=== PATIENT | male | born 1930 | race Caucasian/White ===

== ENCOUNTER 2016-12-06 15:04 | Inpatient (IN) | payer OTHER, MEDICARE ==
--- NOTE | 2016-12-06 17:13 | PDOC ---
History of Present Illness - History of Present Illness Initial Comments: 12/06/16 17:33 The patient is an 86 year old male with a past medical hx of afib, Non-Hodgkin' s lymphoma diverticulosis who presents to the ED sent by his PCP for evaluation of abnormal laboratory findings. The patient had blood work taken yesterday which revealed a hemoglobin level of 7. The patient states his baseline level is a 9. The patient states he was informed he may need a transfusion. The patient reports he feels fine and denies any headache, weakness, dizziness, hematochezia, and melena. The patient denies chest pain, SOB The patient denies fever, chills The patient denies nausea, vomiting, diarrhea Allergies: Warfarin sodium Social: No toxic habits reported PCP: Dr. West <Whitney Davis - Last Filed: 12/06/16 17:43> <Kiah Cohen - Last Filed: 12/06/16 19:39> <Morgan Perez - Last Filed: 12/07/16 20:41> - General Stated Complaint: Blood Transfusion Time Seen by Provider: 12/06/16 17:13 Past History <Whitney Davis - Last Filed: 12/06/16 17:43> <Kiah Cohen - Last Filed: 12/06/16 19:39> - Past Medical History Anemia: No Asthma: No Cancer: No Cardiac Disorders: Yes (afib-CARDIOVERSION) CVA: No COPD: No CHF: No Dementia: No Diabetes: No GI Disorders: Yes (RECTAL BLEEDING;DIVERTICULOSIS) Disorders: No HTN: No Hypercholesterolemia: Yes Liver Disease: No Suicide Attempt (Hx): No Seizures: No Thyroid Disease: No - Surgical History Abdominal Surgery: Yes (HERNIA SX) Appendectomy: No Cardiac Surgery: No Cholecystectomy: Yes Lung Surgery: No Neurologic Surgery: No Orthopedic Surgery: No - Psycho/Social/Smoking Cessation Hx Anxiety: No Suicidal Ideation: No Smoking Status: No Smoking History: Never smoked Have you smoked in the past 12 months: No Number of Cigarettes Smoked Daily: 0 If you are a former smoker, when did you quit?: 2007 Cigars Per Day: 0 Information on smoking cessation initiated: No 'Breaking Loose' booklet given: 08/23/15 Hx Alcohol Use: No Drug/Substance Use Hx: No Substance Use Type: None Hx Substance Use Treatment: No <Morgan Perez - Last Filed: 12/07/16 20:41> - Past Medical History Allergies/Adverse Reactions: Allergies Allergy/AdvReac Type Severity Reaction Status Date / Time warfarin sodium Allergy Severe bleeding Verified 12/06/16 15:15 [From Coumadin] Home Medications: Ambulatory Orders Apixaban [Eliquis] 2.5 mg PO BID 12/06/16 Atorvastatin Ca [Lipitor] 20 mg PO HS 12/06/16 Digoxin [Lanoxin -] 0.125 mg PO DAILY 12/06/16 Dutasteride/Tamsulosin HCl [Dutasteride-Tamsulosin 0.5-0.4] 1 each PO DAILY Furosemide [Lasix] 40 mg PO BID 12/06/16 L.acidoph,Paracasei, B.lactis [Probiotic] 1 each PO DAILY 12/06/16 Melatonin 5 mg PO DAILY 12/06/16 Metoprolol Succinate [Toprol XL -] 100 mg PO BID 12/06/16 Pantoprazole Sodium [Protonix] 40 mg PO BID 12/06/16 Review of Systems - Review of Systems Able to Perform ROS?: Yes Comments:: 12/06/16 17:33 CONSTITUTIONAL: Absent: fever, chills, diaphoresis, generalized weakness, malaise, loss of appetite HEENT: Absent: rhinorrhea, nasal congestion, throat pain, throat swelling, difficulty swallowing, mouth swelling, ear pain, eye pain, visual Changes CARDIOVASCULAR: Absent: chest pain, syncope, palpitations, irregular heart rate, lightheadedness , peripheral edema RESPIRATORY: Absent: cough, shortness of breath, dyspnea with exertion, orthopnea, wheezing, stridor, hemoptysis GASTROINTESTINAL: Absent: abdominal pain, abdominal distension, nausea, vomiting, diarrhea, constipation, melena, hematochezia GENITOURINARY: Absent: dysuria, frequency, urgency, hesitancy, hematuria, flank pain, genital pain MUSCULOSKELETAL: Absent: myalgia, arthralgia, joint swelling SKIN: Absent: rash, itching, pallor HEMATOLOGIC/IMMUNOLOGIC: Absent: easy bleeding, easy bruising, lymphadenopathy, frequent infections ENDOCRINE: Absent: unexplained weight gain, unexplained weight loss, heat intolerance, cold intolerance NEUROLOGIC: Absent: headache, focal weakness or paresthesias, dizziness, unsteady gait, seizure, mental status changes, bladder or bowel incontinence PSYCHIATRIC: Absent: anxiety, depression, suicidal or homicidal ideation, hallucinations. <DuglasWhitney mayen - Last Filed: 12/06/16 17:43> *Physical Exam - Vital Signs Last Vital Signs Temp Pulse Resp BP Pulse Ox 97.5 F L 60 18 104/73 100 12/06/16 15:16 12/06/16 15:11 12/06/16 15:11 12/06/16 15:11 12/06/16 15:11 - Physical Exam Comments: 12/06/16 17:43 GENERAL: Well developed, well nourished. Awake and alert. In no acute distress. HEENT: Normocephalic, atraumatic. PERRLA, EOMI. No conjunctival pallor. Sclera are non- icteric. Moist mucous membranes. Oropharynx is clear. NECK: Supple. Full ROM. No JVD. Carotid pulses 2+ and symmetric, without bruits. No thyromegaly. No lymphadenopathy. CARDIOVASCULAR: +Peripheral pulses irregularly irregular. Regular rate and rhythm. No murmurs, rubs, or gallops. PULMONARY: No evidence of respiratory distress. Lungs clear to auscultation bilaterally. No wheezing, rales or rhonchi. ABDOMINAL: +Ventral hernia. Soft. Non-tender. Non-distended. No rebound or guarding. No organomegaly. Normoactive bowel sounds. MUSCULOSKELETAL Normal range of motion at all joints. No bony deformities or tenderness. No CVA tenderness. EXTREMITIES: No cyanosis. No clubbing. No edema. No calf tenderness. SKIN: +Several raised dark colored lesions on abdomen. Warm and dry. Normal capillary refill. No rashes. No jaundice. NEUROLOGICAL: Alert, awake, appropriate. Cranial nerves 2-12 intact. No deficits to light touch and temperature in face, upper extremities and lower extremities. No motor deficits in the in face, upper extremities and lower extremities. Normoreflexic in the upper and lower extremities. Normal speech. Toes are downgoing bilaterally. Gait is normal without ataxia. PSYCHIATRIC: Cooperative. Good eye contact. Appropriate mood and affect. <DuglastiarraWhitney - Last Filed: 12/06/16 17:43> - Vital Signs Last Vital Signs Temp Pulse Resp BP Pulse Ox 97.5 F L 60 18 104/73 100 12/06/16 15:16 12/06/16 15:11 12/06/16 15:11 12/06/16 15:11 12/06/16 15:11 <Kiah Cohen - Last Filed: 12/06/16 19:39> - Vital Signs Last Vital Signs Temp Pulse Resp BP Pulse Ox 97.5 F L 60 18 104/73 100 12/06/16 15:16 12/06/16 15:11 12/06/16 15:11 12/06/16 15:11 12/06/16 15:11 <Morgan Perez - Last Filed: 12/07/16 20:41> ED Treatment Course - LABORATORY CBC & Chemistry Diagram: 12/06/16 18:00 12/06/16 18:00 - ADDITIONAL ORDERS Additional order review: Laboratory Results 12/06/16 12/06/16 12/06/16 18:26 18:00 18:00 Sodium 143 Potassium 4.3 Chloride 105 Carbon Dioxide 30 Anion Gap 8 BUN 42 H D Creatinine 2.3 H D Creat Clearance w eGFR 27.10 Random Glucose 93 Calcium 8.5 Total Bilirubin 0.8 AST 26 D ALT 26 D Alkaline Phosphatase 125 H D Total Protein 6.7 Albumin 3.5 Stool Occult Blood Negative Crossmatch See Detail <Kiah Cohen - Last Filed: 12/06/16 19:39> - LABORATORY CBC & Chemistry Diagram: 12/07/16 06:20 12/07/16 06:20 <Morgan Perez - Last Filed: 12/07/16 20:41> Medical Decision Making - Medical Decision Making 12/06/16 19:18 First page placed for Dr. West at 19:15. Case discussed with Dr. Hauser at 19:35. <Kiah Cohen - Last Filed: 12/06/16 19:39> *DC/Admit/Observation/Transfer - Attestations Scribe Attestion: 12/06/16 17:33 Documentation prepared by Whitney Davis, acting as medical charge entry specialist for Morgan Perez MD, /DO. <Whitney Davis - Last Filed: 12/06/16 17:43> - Attestations Scribe Attestion: 12/06/16 19:19 Documentation prepared by Kiah Cohen, acting as medical charge entry specialist for Morgan Perez MD. <Kiah Cohen - Last Filed: 12/06/16 19:39> - Discharge Dispostion Admit: No - Post Discharge Activity Activity Comments: 12/07/16 20:41 THE PATIENT REFUSED ADMISSION. <Morgan Perez - Last Filed: 12/07/16 20:41> Diagnosis at time of Disposition: CLL (chronic lymphocytic leukemia), Anemia - Discharge Dispostion Disposition: HOME Condition at time of disposition: Guarded - Referrals
[2016-12-06] MEDS ORDERED: SODIUM CHLORIDE 1,000 ML IV SCH (17:30)
[2016-12-06 18:26] LABS: MCH 27.7 pg (25.7-33.7); MEAN CELL VOLUME 95.5 fl (80-96); PLATELET COUNT 137 K/MM3 (134-434); RDW 16.5 % (11.9-15.9)
[2016-12-06 19:05] LABS: ALBUMIN 3.5 g/dl (3.4-5.0); BILIRUBIN,TOTAL 0.8 mg/dL (0.2-1.0); CALCIUM 8.5 mg/dL (8.5-10.1); CREATININE 2.3 mg/dL (0.7-1.3); TOT PROT 6.7 g/dl (6.4-8.2)
[2016-12-06 19:32] LABS: WHITE BLOOD COUNT 118.2 K/mm3 (4.0-10.0)
--- NOTE | 2016-12-06 19:41 | PDOC ---
*Physical Exam - Vital Signs Last Vital Signs Temp Pulse Resp BP Pulse Ox 97.5 F L 60 18 104/73 100 12/06/16 15:16 12/06/16 15:11 12/06/16 15:11 12/06/16 15:11 12/06/16 15:11 ED Treatment Course - LABORATORY CBC & Chemistry Diagram: 12/06/16 18:00 12/06/16 18:00 - ADDITIONAL ORDERS Additional order review: Laboratory Results 12/06/16 12/06/16 12/06/16 18:26 18:00 18:00 Sodium 143 Potassium 4.3 Chloride 105 Carbon Dioxide 30 Anion Gap 8 BUN 42 H D Creatinine 2.3 H D Creat Clearance w eGFR 27.10 Random Glucose 93 Calcium 8.5 Total Bilirubin 0.8 AST 26 D ALT 26 D Alkaline Phosphatase 125 H D Total Protein 6.7 Albumin 3.5 Stool Occult Blood Negative Crossmatch See Detail 12/06/16 18:00 RBC 2.53 L D MCV 95.5 MCHC 29.0 L RDW 16.5 H MPV 10.0 Neutrophils % Y Lymphocytes % Y *DC/Admit/Observation/Transfer Diagnosis at time of Disposition: CLL (chronic lymphocytic leukemia), Anemia - Discharge Dispostion Condition at time of disposition: Stable Admit: Yes - Referrals Referrals: Denise West MD [Primary Care Provider] - - Patient Instructions - Post Discharge Activity
[2016-12-06 19:52] LABS: METAMYELOCYTE 1 % (0-2)
[2016-12-06 20:44] LABS: URINE APPEARANCE CLOUDY; URINE BILIRUBIN NEGATIVE (NEGATIVE); URINE COLOR YELLOW; URINE GLUCOSE (UA) NEGATIVE (NEGATIVE); URINE KETONE NEGATIVE (NEGATIVE); URINE NITRITE NEGATIVE (NEGATIVE); URINE UROBILINOGEN NEGATIVE E.U./dl (0.2-1.0)
[2016-12-06 20:48] LABS: URINE BLOOD 3+ (NEGATIVE); URINE LEUK ESTERASE 3+ (NEGATIVE); URINE PROTEIN 1+ (NEGATIVE)
[2016-12-06 21:40] LABS: URINE BACTERIA RARE /hpf (NONE SEEN); URINE RBC 28 /hpf (0-3); URINE WBC 347 /hpf (3-5); YEAST FEW
[2016-12-06] MEDS ORDERED: MELATONIN 5 MG TABLETS PO SCH (22:00)
[2016-12-06] MEDS ORDERED: PANTOPRAZOLE 40 MG TABLET (FP) ONE (22:17)
[2016-12-06] MEDS ORDERED: METOPROLOL SUCCINATE 50 MG TAB.SR.24H (FP) ONE (22:18)
[2016-12-06] MEDS: FUROSEMIDE 40 MG TABLET (FP) PO SCH (22:21)
[2016-12-06] MEDS: PANTOPRAZOLE 40 MG TABLET (FP) PO SCH (22:23)
[2016-12-06] MEDS: METOPROLOL SUCCINATE 100 MG TAB.SR.24H (FP) PO SCH (22:23)
[2016-12-07 07:30] LABS: MCH 29.6 pg (25.7-33.7); MCHC 32.5 g/dl (32.0-35.9); MEAN CELL VOLUME 91.1 fl (80-96); MEAN PLT VOLUME 9.7 fl (7.5-11.1); PLATELET COUNT 133 K/MM3 (134-434); RDW 17.8 % (11.9-15.9)
[2016-12-07 07:54] LABS: ALBUMIN 3.6 g/dl (3.4-5.0); CALCIUM 8.2 mg/dL (8.5-10.1)
[2016-12-07 08:01] LABS: BILIRUBIN,TOTAL 1.9 mg/dL (0.2-1.0); CREATININE 2.1 mg/dL (0.7-1.3); TOT PROT 6.8 g/dl (6.4-8.2)
[2016-12-07 08:06] LABS: WHITE BLOOD COUNT 142.1 K/mm3 (4.0-10.0)
[2016-12-07 08:54] LABS: METAMYELOCYTE 1 % (0-2)
[2016-12-07 08:55] LABS: SMUDGE CELLS FEW
[2016-12-07] MEDS ORDERED: LACTOBACILLUS ACIDOPHILUS 1 EACH TAB (FP) PO SCH (10:00)
[2016-12-07] MEDS ORDERED: PATIENT'S OWN MEDICATION (NON-FORMULARY) (Dutasteride/Tamsulosin Hcl [Dutasteride-Tamsulos PO SCH (10:00)
[2016-12-07] MEDS ORDERED: DIGOXIN 0.125 MG TABLET (FP) PO SCH (10:00)
[2016-12-07] MEDS: PANTOPRAZOLE 40 MG TABLET (FP) PO SCH (10:40)
[2016-12-07] MEDS: METOPROLOL SUCCINATE 100 MG TAB.SR.24H (FP) PO SCH (10:40)
[2016-12-07] MEDS: FUROSEMIDE 40 MG TABLET (FP) PO SCH (10:40)
[2016-12-07 10:42] VITALS: BP 149/63; PULSE 68; TEMP 97.9
--- NOTE | 2016-12-07 12:12 | HP ---
Admitting History and Physical - Primary Care Physician PCP: Denise West - Admission Chief Complaint: sent in for blood transfusion History of Present Illness: The patient is an 86 year old male with a past medical hx of afib, Non-Hodgkin' s lymphoma diverticulosis who presents to the ED sent by his PCP for evaluation of abnormal laboratory findings. The patient had blood work taken yesterday which revealed a hemoglobin level of 7. The patient states his baseline level is a 9. The patient states he was informed he may need a transfusion. The patient reports he feels fine and denies any headache, weakness, dizziness, hematochezia, and melena. The patient denies chest pain, SOB The patient denies fever, chills The patient denies nausea, vomiting, diarrhea Allergies: Warfarin sodium Social: No toxic habits reported PCP: Dr. 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 Cardiovascular: Yes: AFIB (on asiprin no coumadin bc of bleeding in past), HTN Pulmonary: Yes: Pneumonia, Other (Has progressive RLL consolidation on Chest X- ray report) Gastrointestinal: Yes: Diverticulosis, GI Bleed (diverticular bleeding), Other ( HEMORRHOIDS, antral and gastric body erosions, left inguinal hernia) Hepatobiliary: Yes: Other (developing abnormalities of LFT's -progressive) Renal/: Yes: BPH, Other (consideration for prostate procedure mentioned by ) Heme/Onc: Yes: Other (CLL followed by Dr Reyes, previously carried as NHL, 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) Infectious Disease: Yes: Other (gram negative bacteremia, and gram negatives in urine) Musculoskeletal: Yes: Osteoarthritis - Past Surgical History Past Surgical History: Yes: Cholecystectomy - Smoking History Smoking history: Never smoked Have you smoked in the past 12 months: No Aproximately how many cigarettes per day: 0 If you are a former smoker, when did you quit?: 2006 - Alcohol/Substance Use Hx Alcohol Use: No - Social History ADL: Independent 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 History of Recent Travel: No Home Medications - Allergies Allergies/Adverse Reactions: Allergies Allergy/AdvReac Type Severity Reaction Status Date / Time warfarin sodium Allergy Severe bleeding Verified 12/06/16 15:15 [From Coumadin] - Home Medications Home Medications: Ambulatory Orders Apixaban [Eliquis] 2.5 mg PO BID 12/06/16 Atorvastatin Ca [Lipitor] 20 mg PO HS 12/06/16 Digoxin [Lanoxin -] 0.125 mg PO DAILY 12/06/16 Dutasteride/Tamsulosin HCl [Dutasteride-Tamsulosin 0.5-0.4] 1 each PO DAILY Furosemide [Lasix] 40 mg PO BID 12/06/16 L.acidoph,Paracasei, B.lactis [Probiotic] 1 each PO DAILY 12/06/16 Melatonin 5 mg PO DAILY 12/06/16 Metoprolol Succinate [Toprol Xl -] 100 mg PO BID 12/06/16 Pantoprazole Sodium [Protonix] 40 mg PO BID 12/06/16 Family Disease History - Family Disease History Family Disease History: Other: Father (stroke 74), Mother ( 72 or aspiration ) Review of Systems - Review of Systems HENT: reports: No Symptoms Neck: reports: No Symptoms Cardiovascular: reports: No Symptoms Respiratory: reports: No Symptoms Musculoskeletal: reports: Other (leg swelling) Physical Examination Vital Signs: Vital Signs Temperature 97.9 F 12/07/16 10:40 Pulse Rate 68 12/07/16 10:40 Respiratory Rate 16 12/07/16 10:40 Blood Pressure 149/63 12/07/16 10:40 O2 Sat by Pulse Oximetry (%) 98 12/07/16 10:40 Constitutional: Yes: Calm Cardiovascular: Yes: Regular Rate and Rhythm, S1, S2 Respiratory: Yes: CTA Bilaterally Gastrointestinal: Yes: Normal Bowel Sounds, Soft Edema: LLE: 2+, RLE: 2+ Neurological: Yes: Alert, Oriented Labs: CBC, BMP 12/07/16 06:20 12/07/16 06:20 Imaging - Results Ultrasound: Pending Problem List - Problems (1) Anemia Assessment/Plan: s/p prbc h/h imptoved Code(s): D64.9 - ANEMIA, UNSPECIFIED (2) CLL (chronic lymphocytic leukemia) Assessment/Plan: dr reyes patient will make appoitment to see him next week explained to him importance of him seeing him soon. Code(s): C91.10 - CHRONIC LYMPHOCYTIC LEUK OF B-CELL TYPE NOT ACHIEVE REMIS (3) Acute kidney injury Assessment/Plan: renal eval renal bladder sono done report pending continue same meds needs lasix given extensive leg edema Code(s): N17.9 - ACUTE KIDNEY FAILURE, UNSPECIFIED Assessment/Plan patient really wants to go home explained to him i need to first get the ultrasound report based on that isha decide discharge if ultrasound is ok no major abnormality then will discharge patient home
--- NOTE | 2016-12-07 14:55 | CONSULT ---
Consult Consult Specialty:: Nephrology Reason for Consultation:: CKD - History of Present Illness Chief Complaint: sent in for abnormal labs History of Present Illness: Pt is an 86 year old male with hx of CLL, a-fib, CKD and anemia who presents to the ER for abnormal labs. He was found to be anemic and was transfused. He complains of lower extremity edema. He was found to have moderate hydro on the renal ultrasound. He does have CKD and follows with Dr Voss. Pt requests to go home and would like the workup done as an outpt. He denies chest pain or palpitations. He denies dysuria or hematuria. He still has edema of his legs. He is awake and alert. 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 Cardio/Vascular: Yes: AFIB (on asiprin no coumadin bc of bleeding in past), HTN Pulmonary: Yes: Pneumonia, Other (Has progressive RLL consolidation on Chest X- ray report) Gastrointestinal: Yes: Diverticulosis, GI Bleed (diverticular bleeding), Other ( HEMORRHOIDS, antral and gastric body erosions, left inguinal hernia) Hepatobiliary: Yes: Other (developing abnormalities of LFT's -progressive) Renal/: Yes: BPH, Other (consideration for prostate procedure mentioned by ) Infectious Disease: Yes: Other (gram negative bacteremia, and gram negatives in urine) Musculoskeletal: Yes: Osteoarthritis - Past Surgical History Past Surgical History: Yes: Cholecystectomy - Alcohol/Substance Use Hx Alcohol Use: No - Smoking History Smoking history: Never smoked Have you smoked in the past 12 months: No Aproximately how many cigarettes per day: 0 If you are a former smoker, when did you quit?: 2006 - Social History Usual Living Arrangement: Alone ADL: Independent 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 History of Recent Travel: No Home Medications - Allergies Allergies/Adverse Reactions: Allergies Allergy/AdvReac Type Severity Reaction Status Date / Time warfarin sodium Allergy Severe bleeding Verified 12/06/16 15:15 [From Coumadin] - Home Medications Home Medications: Ambulatory Orders Apixaban [Eliquis] 2.5 mg PO BID 12/06/16 Atorvastatin Ca [Lipitor] 20 mg PO HS 12/06/16 Digoxin [Lanoxin -] 0.125 mg PO DAILY 12/06/16 Dutasteride/Tamsulosin HCl [Dutasteride-Tamsulosin 0.5-0.4] 1 each PO DAILY Furosemide [Lasix] 40 mg PO BID 12/06/16 L.acidoph,Paracasei, B.lactis [Probiotic] 1 each PO DAILY 12/06/16 Melatonin 5 mg PO DAILY 12/06/16 Metoprolol Succinate [Toprol XL -] 100 mg PO BID 12/06/16 Pantoprazole Sodium [Protonix] 40 mg PO BID 12/06/16 Family Disease History - Family Disease History Family Disease History: Other: Father (stroke 74), Mother ( 72 or aspiration ) Review of Systems - Review of Systems Constitutional: reports: No Symptoms Eyes: reports: No Symptoms HENT: reports: No Symptoms Neck: reports: No Symptoms Cardiovascular: reports: Edema Respiratory: reports: No Symptoms Gastrointestinal: reports: No Symptoms Genitourinary: reports: No Symptoms Integumentary: reports: Erythema Neurological: reports: No Symptoms Endocrine: reports: No Symptoms Hematology/Lymphatic: reports: No Symptoms Psychiatric: reports: No Symptoms Physical Exam Vital Signs: Vital Signs Temperature 97.9 F 12/07/16 10:40 Pulse Rate 68 12/07/16 10:40 Respiratory Rate 16 12/07/16 10:40 Blood Pressure 149/63 12/07/16 10:40 O2 Sat by Pulse Oximetry (%) 98 12/07/16 10:40 Constitutional: Yes: Calm Eyes: Yes: Conjunctiva Clear HENT: Yes: Atraumatic Neck: Yes: Supple Cardiovascular: Yes: S1, S2 Respiratory: Yes: CTA Bilaterally Gastrointestinal: Yes: Soft Musculoskeletal: Yes: WNL Edema: Yes Edema: LLE: 3+, RLE: 3+ Integumentary: Yes: Venous Stasis Changes Wound/Incision: Yes: Open to air Neurological: Yes: Oriented Psychiatric: Yes: Oriented Labs: CBC, BMP 12/07/16 06:20 12/07/16 06:20 Laboratory Tests 12/06/16 12/06/16 12/06/16 18:00 18:00 18:26 WBC 118.2 H* Hgb 7.0 L D Plt Count 137 Sodium 143 Potassium 4.3 Chloride 105 Carbon Dioxide 30 Anion Gap 8 BUN 42 H D Creatinine 2.3 H D Creat Clearance w eGFR 27.10 Urine Color Urine Appearance Urine pH Ur Specific [place] Urine Protein Urine Glucose (UA) Urine Ketones Urine Blood Urine Nitrite Urine Bilirubin Urine Urobilinogen Ur Leukocyte Esterase Urine RBC Urine WBC Ur Epithelial Cells Stool Occult Blood Negative 12/06/16 12/07/16 12/07/16 20:28 06:20 06:20 WBC 142.1 H* Hgb 9.0 L D Plt Count 133 L Sodium 144 Potassium 4.6 Chloride 108 H Carbon Dioxide 28 Anion Gap 8 BUN 42 H Creatinine 2.1 H Creat Clearance w eGFR 30.09 Urine Color Yellow Urine Appearance Cloudy Urine pH 6.0 Ur Specific [place] 1.008 Urine Protein 1+ H Urine Glucose (UA) Negative Urine Ketones Negative Urine Blood 3+ H Urine Nitrite Negative Urine Bilirubin Negative Urine Urobilinogen Negative Ur Leukocyte Esterase 3+ H Urine RBC 28 Urine WBC 347 Ur Epithelial Cells Rare Stool Occult Blood Imaging - Results Chest X-ray: Report Reviewed (mild COPD) Ultrasound: Report Reviewed (mild to moderat left sided hydro, mild cortical atrophy) Problem List - Problems (1) Afib Code(s): I48.91 - UNSPECIFIED ATRIAL FIBRILLATION Qualifiers: Atrial fibrillation type: persistent Qualified Code(s): I48.1 - Persistent atrial fibrillation (2) Anemia Code(s): D64.9 - ANEMIA, UNSPECIFIED (3) CLL (chronic lymphocytic leukemia) Code(s): C91.10 - CHRONIC LYMPHOCYTIC LEUK OF B-CELL TYPE NOT ACHIEVE REMIS (4) Chronic kidney disease (CKD) Code(s): N18.9 - CHRONIC KIDNEY DISEASE, UNSPECIFIED Qualifiers: Chronic kidney disease stage: stage 2 (mild) Qualified Code(s): N18.2 - Chronic kidney disease, stage 2 (mild) (5) Lower extremity edema Code(s): R60.0 - LOCALIZED EDEMA Assessment/Plan Impression 1. CKD 2. anemia 3. CLL 4. a-fib 5. lower extremity edema Plan - recommend that pt stay in hospital for workup - if he decides to stay should get a ct of the abdomen and pelvis - I called oncology and they also recommend getting a ct scan - cont with diuretics - avoid nsaids and nephrotoxins - the medical attending and I both tried to convince the pt to stay for workup however he is refusing Dr Hall
--- NOTE | 2016-12-07 14:58 | DS ---
Physical Examination Vital Signs: Vital Signs Temperature 97.9 F 12/07/16 10:40 Pulse Rate 68 12/07/16 10:40 Respiratory Rate 16 12/07/16 10:40 Blood Pressure 149/63 12/07/16 10:40 O2 Sat by Pulse Oximetry (%) 98 12/07/16 10:40 Constitutional: Yes: Calm Neck: Yes: Trachea Midline Cardiovascular: Yes: Regular Rate and Rhythm, S1, S2 Respiratory: Yes: CTA Bilaterally Gastrointestinal: Yes: Normal Bowel Sounds, Soft Edema: Yes Edema: LLE: 2+, RLE: 2+ Neurological: Yes: Alert, Oriented Labs: CBC, BMP 12/07/16 06:20 12/07/16 06:20 Discharge Summary Reason For Visit: CLL/ ANEMIA Current Active Problems Anemia (Acute) CLL (chronic lymphocytic leukemia) (Acute) Hospital Course: Chief Complaint: sent in for blood transfusion History of Present Illness: The patient is an 86 year old male with a past medical hx of afib, Non-Hodgkin' s lymphoma diverticulosis who presents to the ED sent by his PCP for evaluation of abnormal laboratory findings. The patient had blood work taken yesterday which revealed a hemoglobin level of 7. The patient states his baseline level is a 9. The patient states he was informed he may need a transfusion. The patient reports he feels fine and denies any headache, weakness, dizziness, hematochezia, and melena. The patient denies chest pain, SOB The patient denies fever, chills The patient denies nausea, vomiting, diarrhea Allergies: Warfarin sodium Social: No toxic habits reported PCP: Dr. West in ER he was found to have hgb of 7.0 got unit of blood and now repeat h/h 08/14 patient got renal bladder sono gram shows mild to mod left side hydronephrosis and prostate enlargement he wants to go home and said he will follow up with his oncologist Dr Reyes and PMD next week explained to patient need to FU with renal and urolgy and PMD he willl see the doctoirs - Instructions Referrals: Denise West MD [Primary Care Provider] - 1 Week James Lee MD., [Staff Physician] - 1 Week Basilio Sood MD [Staff Physician] - 1 Week Disposition: HOME - Home Medications Comprehensive Discharge Medication List: Ambulatory Orders Apixaban [Eliquis] 2.5 mg PO BID 12/06/16 Atorvastatin Ca [Lipitor] 20 mg PO HS 12/06/16 Digoxin [Lanoxin -] 0.125 mg PO DAILY 12/06/16 Dutasteride/Tamsulosin HCl [Dutasteride-Tamsulosin 0.5-0.4] 1 each PO DAILY Furosemide [Lasix] 40 mg PO BID 12/06/16 L.acidoph,Paracasei, B.lactis [Probiotic] 1 each PO DAILY 12/06/16 Melatonin 5 mg PO DAILY 12/06/16 Metoprolol Succinate [Toprol Xl -] 100 mg PO BID 12/06/16 Pantoprazole Sodium [Protonix] 40 mg PO BID 12/06/16
--- NOTE | 2016-12-07 15:31 | EKG ---
Test Reason : Blood Pressure : / mmHG Vent. Rate : 056 BPM Atrial Rate : 043 BPM P-R Int : 000 ms QRS Dur : 142 ms QT Int : 484 ms P-R-T Axes : 000 -73 -18 degrees QTc Int : 467 ms ATRIAL FIBRILLATION WITH SLOW VENTRICULAR RESPONSE LEFT AXIS DEVIATION RIGHT BUNDLE BRANCH BLOCK INFERIOR INFARCT (CITED ON OR BEFORE 03-JUL-2007) ABNORMAL ECG WHEN COMPARED WITH ECG OF 16-AUG-2016 22:25, NONSPECIFIC T WAVE ABNORMALITY NOW EVIDENT IN INFERIOR LEADS Confirmed by SHAUNA ESPINOZA MD ([id number]) on 12/07/2016 3:30:48 PM Referred By: Confirmed By:SHAUNA ESPINOZA MD
[2016-12-07 19:39] VITALS: BMI 24.0
[2016-12-08] MEDS ORDERED: TAMSULOSIN HCL 0.4 MG CAP.ER.24H (FP) PO SCH (08:30)
== END 2016-12-07 15:12 | disposition home or self-care (01) | DRG 812 ==
LOC: JER 15:04 → JERBED 20:07 → J5S 12-07 12:02
PROVIDERS: ADMIT Family Medicine; ATTEND Family Medicine
PROC: 30233N1 Transfusion of Nonautologous Red Blood Cells into Peripheral Vein, Percutaneous Approach (ICD-10-PCS; principal; 2016-12-07)
DX: D64.9 Anemia, unspecified (principal); I48.1 Persistent atrial fibrillation; C91.10 Chronic lymphocytic leukemia of B-cell type not having achieved remission; N17.9 Acute kidney failure, unspecified; N13.30 Unspecified hydronephrosis; K57.90 Diverticulosis of intestine, part unspecified, without perforation or abscess without bleeding; N40.0 Benign prostatic hyperplasia without lower urinary tract symptoms; M19.90 Unspecified osteoarthritis, unspecified site; I12.9 Hypertensive chronic kidney disease with stage 1 through stage 4 chronic kidney disease, or unspecified chronic kidney disease; N18.2 Chronic kidney disease, stage 2 (mild); R60.0 Localized edema
CPT/HCPCS: 36415; 36430; 71010-TC; 76775-TC; 76856-TC; 80053; 81003; 81015; 82272; 85025; 86850; 86900; 86901; 86922; 93005; 93010; 99285-25; P9038; P9058

== ENCOUNTER 2016-12-26 16:01 | Inpatient (IN) | payer OTHER, MEDICARE ==
[2016-12-26 16:09] VITALS: PULSE 71; TEMP 97.2; BMI 24.2
--- NOTE | 2016-12-26 16:34 | PDOC ---
History of Present Illness - General History Source: Patient, Old Records Exam Limitations: No Limitations - History of Present Illness Initial Comments: 12/26/16 16:59 The patient is a 86 year old male, with a significant past medical history of AFIB, diverticulosis, BPH, rectal bleeding and HLD, who presents to the emergency department after being sent by his PMD with elevated potassium. Upon presentation the patient is well appearing and able to ambulate without any difficulties. The patient denies chest pain, shortness of breath, headache and dizziness. Denies fever, chills, nausea, vomit, diarrhea and constipation. Denies dysuria, frequency, urgency and hematuria. Allergies: Coumadin Past surgical history: abdominal hernia surgery and cholecystectomy Social history: No alcohol, tobacco or drug use reported PMD - Dr. Denise West <Stewart Martinez - Last Filed: 12/26/16 17:57> <Morgan Perez - Last Filed: 12/26/16 18:26> - General Chief Complaint: Revisit, Lab Variance Stated Complaint: HIGH POTASSIUM (PCP SENT) Past History <Stewart Martinez - Last Filed: 12/26/16 17:57> - Past Medical History Anemia: No Asthma: No Cancer: No Cardiac Disorders: Yes (afib-CARDIOVERSION) CVA: No COPD: No CHF: No Dementia: No Diabetes: No GI Disorders: Yes (RECTAL BLEEDING;DIVERTICULOSIS) Disorders: No HTN: No Hypercholesterolemia: Yes Liver Disease: No Suicide Attempt (Hx): No Seizures: No Thyroid Disease: No - Surgical History Abdominal Surgery: Yes (HERNIA SX) Appendectomy: No Cardiac Surgery: No Cholecystectomy: Yes Lung Surgery: No Neurologic Surgery: No Orthopedic Surgery: No - Psycho/Social/Smoking Cessation Hx Anxiety: No Suicidal Ideation: No Smoking Status: No Smoking History: Never smoked Have you smoked in the past 12 months: No Number of Cigarettes Smoked Daily: 0 If you are a former smoker, when did you quit?: 2006 Cigars Per Day: 0 'Breaking Loose' booklet given: 08/23/15 Hx Alcohol Use: No Drug/Substance Use Hx: No Substance Use Type: None Hx Substance Use Treatment: No <Morgan Perez - Last Filed: 12/26/16 18:26> - Past Medical History Allergies/Adverse Reactions: Allergies Allergy/AdvReac Type Severity Reaction Status Date / Time warfarin sodium Allergy Severe bleeding Verified 12/26/16 16:03 [From Coumadin] Home Medications: Ambulatory Orders Apixaban [Eliquis] 2.5 mg PO BID 12/06/16 Atorvastatin Ca [Lipitor] 20 mg PO HS 12/06/16 Digoxin [Lanoxin -] 0.125 mg PO DAILY 12/06/16 Dutasteride/Tamsulosin HCl [Dutasteride-Tamsulosin 0.5-0.4] 1 each PO DAILY Furosemide [Lasix] 40 mg PO BID 12/06/16 L.acidoph,Paracasei, B.lactis [Probiotic] 1 each PO DAILY 12/06/16 Melatonin 5 mg PO HS 12/06/16 Metoprolol Succinate [Toprol XL -] 100 mg PO BID 12/06/16 Pantoprazole Sodium [Protonix] 40 mg PO BID 12/06/16 Review of Systems - Review of Systems Able to Perform ROS?: Yes Comments:: 12/26/16 16:59 GENERAL/CONSTITUTIONAL: No fever or chills. No weakness. HEAD, EYES, EARS, NOSE AND THROAT: No change in vision. No ear pain or discharge. No sore throat. CARDIOVASCULAR: No chest pain or shortness of breath RESPIRATORY: No cough, wheezing, or hemoptysis. GASTROINTESTINAL: No nausea, vomiting, diarrhea or constipation. GENITOURINARY: No dysuria, frequency, or change in urination. MUSCULOSKELETAL: No joint or muscle swelling or pain. No neck or back pain. SKIN: No rash NEUROLOGIC: No headache, vertigo, loss of consciousness, or change in strength/ sensation. ENDOCRINE: No increased thirst. No abnormal weight change HEMATOLOGIC/LYMPHATIC: No anemia, easy bleeding, or history of blood clots. ALLERGIC/IMMUNOLOGIC: No hives or skin allergy. <Stewart Martinez - Last Filed: 12/26/16 17:57> *Physical Exam - Vital Signs Last Vital Signs Temp Pulse Resp BP Pulse Ox 97.2 F L 71 18 137/66 98 12/26/16 16:04 12/26/16 16:04 12/26/16 16:04 12/26/16 16:04 12/26/16 16:04 - Physical Exam Comments: 12/26/16 17:00 GENERAL: Awake, alert, and fully oriented, in no acute distress HEAD: No signs of trauma, normocephalic, atraumatic EYES: PERRLA, EOMI, sclera anicteric, conjunctiva clear ENT: Auricles normal inspection, hearing grossly normal, nares patent, oropharynx clear without exudates. Moist mucosa NECK: Normal ROM, supple, no lymphadenopathy, JVD, or masses LUNGS: No distress, speaks full sentences, clear to auscultation bilaterally HEART: Regular rate and rhythm, normal S1 and S2, no murmurs, rubs or gallops, peripheral pulses normal and equal bilaterally. ABDOMEN: Soft, nontender, normoactive bowel sounds. No guarding, no rebound. No masses EXTREMITIES: +Peripheral edema. Normal inspection, Normal range of motion. No clubbing or cyanosis. NEUROLOGICAL: Cranial nerves II through XII grossly intact. Normal speech, normal gait, no focal sensorimotor deficits SKIN: Warm, Dry, normal turgor, no rashes or lesions noted. <Stewart Martinez - Last Filed: 12/26/16 17:57> - Vital Signs Last Vital Signs Temp Pulse Resp BP Pulse Ox 97.2 F L 71 18 137/66 98 12/26/16 16:04 12/26/16 16:04 12/26/16 16:04 12/26/16 16:04 12/26/16 16:04 <Morgan Perez - Last Filed: 12/26/16 18:26> ED Treatment Course - LABORATORY CBC & Chemistry Diagram: 12/26/16 17:00 12/26/16 16:51 <Stewart Martinez - Last Filed: 12/26/16 17:57> - LABORATORY CBC & Chemistry Diagram: 12/26/16 17:00 12/26/16 16:51 <Morgan Perez - Last Filed: 12/26/16 18:26> Medical Decision Making - Medical Decision Making 12/26/16 17:57 Dr. Denise West was consulted regarding the patient at 5:42pm [phone] <Stewart Martinez - Last Filed: 12/26/16 17:57> - Medical Decision Making 12/26/16 18:25 Patient is refusing admission. He asked for Hospice. I spoke to Dr. West who will follow him up in the office with another Kayexalate dose tomorrow. He does have capacity and signing out AMA. <Morgan Perez - Last Filed: 12/26/16 18:26> *DC/Admit/Observation/Transfer - Attestations Scribe Attestion: 12/26/16 17:00 Documentation prepared by Stewart Martinez, acting as medical equipment repair technician for Morgan Perez MD <Stewart Martinez - Last Filed: 12/26/16 17:57> - Discharge Dispostion Admit: Yes <Morgan Perez - Last Filed: 12/26/16 18:26> Diagnosis at time of Disposition: Lower extremity edema, CLL (chronic lymphocytic leukemia), Chronic kidney disease (CKD), Hyperkalemia, Afib, Anemia - Discharge Dispostion Condition at time of disposition: Guarded - Referrals Referrals: Denise West MD [Primary Care Provider] -
[2016-12-26 17:07] LABS: MCH 28.3 pg (25.7-33.7); MCHC 30.6 g/dl (32.0-35.9); MEAN CELL VOLUME 92.5 fl (80-96); MEAN PLT VOLUME 9.9 fl (7.5-11.1); PLATELET COUNT 199 K/MM3 (134-434); RDW 17.4 % (11.9-15.9)
[2016-12-26 17:13] LABS: WHITE BLOOD COUNT 143.6 K/mm3 (4.0-10.0)
[2016-12-26 17:29] LABS: ALBUMIN 3.6 g/dl (3.4-5.0); BILIRUBIN,TOTAL 0.5 mg/dL (0.2-1.0); CREATININE 2.6 mg/dL (0.7-1.3); TOT PROT 6.8 g/dl (6.4-8.2)
[2016-12-26] MEDS ORDERED: SODIUM POLYSTYRENE SULFONATE 15 GM/60 ML BOTTLE PO ONE (17:34)
[2016-12-26] MEDS ORDERED: SODIUM POLYSTYRENE SULFONATE 15 GM/60 ML BOTTLE ONE (17:56)
[2016-12-26 18:55] VITALS: BP 157/58
[2016-12-26 19:40] LABS: PLATELET ESTIMATE ADEQUATE (NORMAL)
--- NOTE | 2016-12-27 10:35 | EKG ---
Test Reason : Blood Pressure : / mmHG Vent. Rate : 076 BPM Atrial Rate : 051 BPM P-R Int : 000 ms QRS Dur : 124 ms QT Int : 434 ms P-R-T Axes : 000 138 022 degrees QTc Int : 488 ms POOR DATA QUALITY, INTERPRETATION MAY BE ADVERSELY AFFECTED ATRIAL FIBRILLATION RIGHT BUNDLE BRANCH BLOCK ABNORMAL ECG Confirmed by JOSE CABALLERO MD ([id number]) on 12/27/2016 10:34:56 AM Referred By: Confirmed By:JOSE CABALLERO MD
== END 2016-12-26 18:55 | disposition left against medical advice (07) | DRG 641 ==
LOC: JER 16:01 → JERBED 17:52
PROVIDERS: ADMIT Family Medicine; ATTEND Family Medicine
DX: E87.5 Hyperkalemia (principal); C91.10 Chronic lymphocytic leukemia of B-cell type not having achieved remission; I12.9 Hypertensive chronic kidney disease with stage 1 through stage 4 chronic kidney disease, or unspecified chronic kidney disease; N18.9 Chronic kidney disease, unspecified; N40.0 Benign prostatic hyperplasia without lower urinary tract symptoms; E78.5 Hyperlipidemia, unspecified; I48.91 Unspecified atrial fibrillation; K57.90 Diverticulosis of intestine, part unspecified, without perforation or abscess without bleeding
CPT/HCPCS: 36415; 74176-TC; 80053; 85025; 86850; 86900; 86901; 93005; 93010; 99283-25; Q9967

== ENCOUNTER 2017-01-21 06:40 | Inpatient (IN) | payer OTHER, MEDICARE ==
--- NOTE | 2017-01-21 08:08 | PDOC ---
Suture Removal/Wound Check HPI - History of Present Illness Chief Complaint: Laceration Stated Complaint: LACERATION LEFT FOOT Time Seen by Provider: 01/21/17 08:07 Past History - Past Medical History Allergies/Adverse Reactions: Allergies warfarin sodium [From Coumadin] Allergy (Severe, Verified 01/21/17 07:03) bleeding Home Medications: Ambulatory Orders Apixaban [Eliquis] 2.5 mg PO BID 12/06/16 Atorvastatin Ca [Lipitor] 20 mg PO HS 12/06/16 Digoxin [Lanoxin -] 0.125 mg PO DAILY 12/06/16 Dutasteride/Tamsulosin HCl [Dutasteride-Tamsulosin 0.5-0.4] 1 each PO DAILY Furosemide [Lasix] 40 mg PO BID 12/06/16 L.acidoph,Paracasei, B.lactis [Probiotic] 1 each PO DAILY 12/06/16 Melatonin 5 mg PO HS 12/06/16 Metoprolol Succinate [Toprol XL -] 100 mg PO BID 12/06/16 Pantoprazole Sodium [Protonix] 40 mg PO BID 12/06/16 Sodium Polystyrene Sulfonate [Kayexalate] 30 gm PO ONCE #30 bottle 12/26/16 - Social History Smoking History: No Smoking Status: Former smoker Number of Ciarettes Per Day: 0 Cigars Per Day: 0 Alcohol Use: occasionally Drug Use: none
[2017-01-21] MEDS ORDERED: LIDOCAINE 1%/EPI 1:100000 (50 ML MULTI DOSE VIAL) ONE (09:07)
--- NOTE | 2017-01-21 09:56 | PDOC ---
History of Present Illness - General Chief Complaint: Laceration Stated Complaint: LACERATION LEFT FOOT Time Seen by Provider: 01/21/17 08:07 History Source: Patient Exam Limitations: No Limitations - History of Present Illness Initial Comments: 01/21/17 09:54 CHIEF COMPLAINT: Bleeding from a blister on the left foot PCP: Dr. Ivonne Durán (Mud Analysis Operator) Dr. Bhatti (GI) Dr. Segura (Urologist) Dr. Reyes (Oncologist) HISTORY OF PRESENT ILLNESS: Patient is a 86 [id number] presented to the ED via EMS with the chief complaint of Bleeding from a blister on the left foot. A/c to the patient, he was feeling fine until this morning, when he woke up in a pool of blood bleeding from a blister on the left leg. As soon as he saw the blood, he called an ambulance and was brought here. As per the patient, he is on Elliquis 2.5mg BID. He saw two blisters on the left foot last week. Doesn't remember scratching it or any trauma to the foot. No pain over the foot. Denies chest pain, sob, cough, palpitation, abdominal pain, nausea or vomiting. Bowel/Bladder habit normal Sleep/Appetite normal Patient mentions that his white blood cell count has been high secondary to non- hodgkins lymphoma and his oncologist mentioned that since he is asymptomatic, they will not recommend chemo or radiation or any other further treatment. Recent Travel: None PAST MEDICAL HISTORY: Atrial fibrillation, Non Hodgkins Lymphoma, Diverticulosis. PAST SURGICAL HISTORY: As mentioned above Social History: Smoking: Quit in 1999 Alcohol:Occasional, quit 6months ago Drugs: Denies Family History: Unknown Allergies: NKDA Past History - Past Medical History Allergies/Adverse Reactions: Allergies Allergy/AdvReac Type Severity Reaction Status Date / Time warfarin sodium Allergy Severe bleeding Verified 01/21/17 07:03 [From Coumadin] Home Medications: Ambulatory Orders Apixaban [Eliquis] 2.5 mg PO BID 12/06/16 Atorvastatin Ca [Lipitor] 20 mg PO HS 12/06/16 Digoxin [Lanoxin -] 0.125 mg PO DAILY 12/06/16 Dutasteride/Tamsulosin HCl [Dutasteride-Tamsulosin 0.5-0.4] 1 each PO DAILY Furosemide [Lasix] 40 mg PO BID 12/06/16 L.acidoph,Paracasei, B.lactis [Probiotic] 1 each PO DAILY 12/06/16 Melatonin 5 mg PO HS 12/06/16 Metoprolol Succinate [Toprol XL -] 100 mg PO BID 12/06/16 Pantoprazole Sodium [Protonix] 40 mg PO BID 12/06/16 Sodium Polystyrene Sulfonate [Kayexalate] 30 gm PO ONCE #30 bottle 12/26/16 Anemia: No Asthma: No Cancer: No Cardiac Disorders: Yes (afib-CARDIOVERSION) CVA: No COPD: No CHF: No Dementia: No Diabetes: No GI Disorders: Yes (RECTAL BLEEDING;DIVERTICULOSIS) Disorders: No HTN: No Hypercholesterolemia: Yes Liver Disease: No Suicide Attempt (Hx): No Seizures: No Thyroid Disease: No - Surgical History Abdominal Surgery: Yes (HERNIA SX) Appendectomy: No Cardiac Surgery: No Cholecystectomy: Yes Lung Surgery: No Neurologic Surgery: No Orthopedic Surgery: No - Psycho/Social/Smoking Cessation Hx Anxiety: No Suicidal Ideation: No Smoking Status: No Smoking History: Former smoker Have you smoked in the past 12 months: No Number of Cigarettes Smoked Daily: 0 If you are a former smoker, when did you quit?: 2007 Cigars Per Day: 0 Information on smoking cessation initiated: No 'Breaking Loose' booklet given: 08/23/15 Hx Alcohol Use: No Drug/Substance Use Hx: No Substance Use Type: None Hx Substance Use Treatment: No Review of Systems - Review of Systems Able to Perform ROS?: Yes Comments:: 01/21/17 10:21 CONSTITUTIONAL:~ Absent: fever, chills, diaphoresis, generalized weakness, malaise, loss of appetite HEENT:~ Absent: rhinorrhea, nasal congestion, throat pain, throat swelling, difficulty swallowing, mouth swelling, ear pain, eye pain, visual Changes CARDIOVASCULAR:~ Absent: chest pain, syncope, palpitations, irregular heart rate, lightheadedness , peripheral edema RESPIRATORY:~ Absent: cough, shortness of breath, dyspnea with exertion, orthopnea, wheezing, stridor, hemoptysis GASTROINTESTINAL: Absent: abdominal pain, abdominal distension, nausea, vomiting, diarrhea, constipation, melena, hematochezia GENITOURINARY:~ Absent: dysuria, frequency, urgency, hesitancy, hematuria, flank pain, genital pain MUSCULOSKELETAL:~ Absent: myalgia, arthralgia, joint swelling SKIN:~ Absent: rash, itching, pallor HEMATOLOGIC/IMMUNOLOGIC:~ Absent: easy bleeding, easy bruising, lymphadenopathy, frequent infections ENDOCRINE: Absent: unexplained weight gain, unexplained weight loss, heat intolerance, cold intolerance NEUROLOGIC:~ Absent: headache, focal weakness or paresthesias, dizziness, unsteady gait, seizure, mental status changes, bladder or bowel incontinence PSYCHIATRIC:~ Absent: anxiety, depression, suicidal or homicidal ideation, hallucinations. Skin: 2 blisters, bleeding from one of the blister on the left foot Is the patient limited [place]atian proficient: No *Physical Exam - Vital Signs Last Vital Signs Temp Pulse Resp BP Pulse Ox 97.9 F 84 18 139/79 100 01/21/17 06:47 01/21/17 06:47 01/21/17 06:47 01/21/17 06:47 01/21/17 06:47 - Physical Exam Comments: 01/21/17 10:22 PE: GENERAL: Elderly male lying comfortably in bed, Awake, alert, and fully oriented , in no acute distress HEAD: No signs of trauma EYES: PERRLA, EOMI, sclera anicteric, conjunctiva clear ENT: Auricles normal inspection, hearing grossly normal, nares patent, oropharynx clear without exudates. Moist mucosa NECK: Normal ROM, supple, no lymphadenopathy, JVD, or masses LUNGS: Breath sounds equal, clear to auscultation bilaterally. No wheezes, and no crackles.. HEART: Regular rate and rhythm, normal S1 and S2, no murmurs, rubs or gallops ABDOMEN: Soft, nontender, normoactive bowel sounds. No guarding, no rebound. No masses EXTREMITIES: Normal range of motion, no edema. No clubbing or cyanosis. No cords, erythema, or tenderness NEUROLOGICAL: Cranial nerves II through XII grossly intact. Normal speech, normal gait SKIN: Varicose veins on bilateral foot Left>Right Active bleeding from the varicose vein on the medial side of the left foot. ED Treatment Course - LABORATORY CBC & Chemistry Diagram: 01/21/17 10:33 01/21/17 10:33 Medical Decision Making - Medical Decision Making 01/21/17 8:00 Patient seen and examined at bed side. Vitals noted, unremarkable. Patient looks comfortable. Washed and cleaned the left foot. Active bleed from a varicose veins on the medial side of the left foot. Pressure applied on the bleeding site for 4 minutes and it stopped. 01/21/17 8:30 Patient reassessed. Bleeding has stopped. Plan: Apply a figure of 8 suture. 01/21/17 10:10 Patient reassessed. Patient is feeling nauseous. Had 3 episodes of diarrhoea since he came to the ED. Will order routine labs, UA, EKG, Stool for occult blood. IV NS @ 75mls/hr IV Zofran 4mg stat. Suture not required as it has stopped bleeding. 01/21/17 11:00 Patient reassessed. Labs noted, WBC 155.3, Hb-5.6, creatinine 2.4, Lactic acid- 3.8 Stool for occult blood negative IV Levofloxacin ordered Recommended patient to be admitted for blood transfusion Patient is refusing to be admitted, wants to sign out AMA 01/21/17 13:[address] Coronado. Dr. Coronado mentioned his last Hemoglobin at his office was about 7.9gm/dl. Dr. Coronado recommends admission in Med-Surg and start blood transfusion 01/21/17 14:30 After several hours of counseling about the risks of signing out AMA, he finally agreed to be admitted for further management. Clinical Impression: Severe Anemia with lactic acidosis and Acute Kidney Injury Patient received IV fluids, Zofran and IV Levofloxacin in the ED Admission under Dr. Coronado Start Blood Transfusion. Illness, Investigation and Plan of care explained to the patient. He verbalized understanding. Case seen and discussed with Dr. Coronado. *DC/Admit/Observation/Transfer Diagnosis at time of Disposition: Acute kidney injury, Anemia - Discharge Dispostion Condition at time of disposition: Guarded Admit: Yes
[2017-01-21] MEDS ORDERED: ONDANSETRON 4 MG/2 ML VIAL IVPB ONE (10:13)
[2017-01-21] MEDS: SODIUM CHLORIDE 1,000 ML IV SCH (10:34)
[2017-01-21 10:49] LABS: MCH 28.1 pg (25.7-33.7); MCHC 30.9 g/dl (32.0-35.9); MEAN CELL VOLUME 90.9 fl (80-96); MEAN PLT VOLUME 9.5 fl (7.5-11.1); PLATELET COUNT 209 K/MM3 (134-434); RDW 16.7 % (11.9-15.9)
[2017-01-21 10:51] LABS: WHITE BLOOD COUNT 155.3 K/mm3 (4.0-10.0)
--- NOTE | 2017-01-21 10:59 | PDOC ---
[id number] I have performed the following: I have examined & evaluated the patient, The case was reviewed & discussed with the resident, I agree w/resident's findings & plan, Exceptions are as noted - HPI HPI: 01/23/17 06:57 Agree with the resident's HPI as noted in the EMR. - Physicial Exam PE: 01/23/17 06:57 Agree with the resident's physical examination as noted in the EMR. - Medical Decision Making 01/21/17 10:56 86-year-old male with history of CLL, atrial fibrillation on Eliquis, pyelonephritis, kidney stones in the past who presents to the emergency department with a bleeding varicosity from his left foot as well as diarrhea and vomiting times one day. Differential diagnosis includes but is not limited to: C. difficile, colitis, gastroenteritis, partial bowel obstruction, dehydration, toxic/metabolic derangement, electrolyte abnormality. Plan: 1. Surgicel was placed on the bleeding varicosity after manual digital pressure. The bleeding. There is hemostatic control of the bleeding varicosity. 2. Labs 3. IV fluid for hydration 4. Stool for C. difficile, O&P 5. Observe and reevaluate
[2017-01-21 11:07] LABS: ALBUMIN 2.8 g/dl (3.4-5.0); BILIRUBIN,TOTAL 0.3 mg/dL (0.2-1.0); CALCIUM 8.1 mg/dL (8.5-10.1); CREATININE 2.4 mg/dL (0.7-1.3); TOT PROT 5.7 g/dl (6.4-8.2)
[2017-01-21 12:31] LABS: INR 1.59 (0.82-1.09); PROTHROMBIN TIME (PATIENT) 17.7 SEC (9.98-11.88)
[2017-01-21 12:34] LABS: TROPONIN I 0.04 ng/ml (0.00-0.05)
[2017-01-21] MEDS ORDERED: LEVOFLOXACIN 750 MG IVPB 150 ML IVPB ONE ×2 (12:45→12:51)
[2017-01-21 12:54] LABS: PLATELET ESTIMATE ADEQUATE (NORMAL)
[2017-01-21 12:57] LABS: OVALOCYTES FEW; SCHISTOCYTES FEW
[2017-01-21] MEDS ORDERED: ACETAMINOPHEN 325 MG TABLET (FP) PO PRN (16:27)
[2017-01-21 16:58] VITALS: BMI 23.8
--- NOTE | 2017-01-21 19:10 | CONSULT ---
Consult - Past Medical History CRITICAL CARE REGISTERED NURSE: Yes: Other Cardio/Vascular: Yes: AFIB (on asiprin no coumadin bc of bleeding in past), HTN Pulmonary: Yes: Pneumonia, Other (Has progressive RLL consolidation on Chest X- ray report) Gastrointestinal: Yes: Diverticulosis, GI Bleed (diverticular bleeding), Other ( HEMORRHOIDS, antral and gastric body erosions, left inguinal hernia) Hepatobiliary: Yes: Other (developing abnormalities of LFT's -progressive) Renal/: Yes: BPH, Other (consideration for prostate procedure mentioned by ) Infectious Disease: Yes: Other (gram negative bacteremia, and gram negatives in urine) Musculoskeletal: Yes: Osteoarthritis - Past Surgical History Past Surgical History: Yes: Cholecystectomy - Alcohol/Substance Use Hx Alcohol Use: No - Smoking History Smoking history: Former smoker Have you smoked in the past 12 months: No Aproximately how many cigarettes per day: 0 If you are a former smoker, when did you quit?: 2006 - Social History Usual Living Arrangement: Alone ADL: Independent 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 History of Recent Travel: No Home Medications - Allergies Allergies/Adverse Reactions: Allergies Allergy/AdvReac Type Severity Reaction Status Date / Time warfarin sodium Allergy Severe bleeding Verified 01/21/17 07:03 [From Coumadin] - Home Medications Home Medications: Ambulatory Orders Apixaban [Eliquis] 2.5 mg PO BID 12/06/16 Atorvastatin Ca [Lipitor] 20 mg PO HS 12/06/16 Digoxin [Lanoxin -] 0.125 mg PO DAILY 12/06/16 Dutasteride/Tamsulosin HCl [Dutasteride-Tamsulosin 0.5-0.4] 1 each PO DAILY Furosemide [Lasix] 40 mg PO BID 12/06/16 L.acidoph,Paracasei, B.lactis [Probiotic] 1 each PO DAILY 12/06/16 Melatonin 5 mg PO HS 12/06/16 Metoprolol Succinate [Toprol XL -] 100 mg PO BID 12/06/16 Pantoprazole Sodium [Protonix] 40 mg PO BID 12/06/16 Sodium Polystyrene Sulfonate [Kayexalate] 30 gm PO ONCE #30 bottle 12/26/16 Family Disease History - Family Disease History Family Disease History: Other: Father (stroke 74), Mother ( 72 or aspiration ) Physical Exam Vital Signs: Vital Signs Temperature 97.9 F 01/21/17 06:47 Pulse Rate 91 H 01/21/17 15:35 Respiratory Rate 18 01/21/17 16:28 Blood Pressure 104/47 01/21/17 15:35 O2 Sat by Pulse Oximetry (%) 100 01/21/17 16:28 Assessment/Plan Vascular Surgery Patient is a 86 [id number] presented to the ED via EMS with the chief complaint of Bleeding from a blister on the left foot. A/c to the patient, he was feeling fine until this morning, when he woke up in a pool of blood bleeding from a blister on the left leg. As soon as he saw the blood, he called an ambulance and was brought here. As per the patient, he is on Elliquis 2.5mg BID. He saw two blisters on the left foot last week. Doesn't remember scratching it or any trauma to the foot. No pain over the foot. Denies chest pain, sob, cough, palpitation, abdominal pain, nausea or vomiting. Bowel/Bladder habit normal Sleep/Appetite normal Patient mentions that his white blood cell count has been high secondary to non- hodgkins lymphoma and his oncologist mentioned that since he is asymptomatic, they will not recommend chemo or radiation or any other further treatment. Recent Travel: None PAST MEDICAL HISTORY: Atrial fibrillation, Non Hodgkins Lymphoma, Diverticulosis. PAST SURGICAL HISTORY: As mentioned above Social History: Smoking: Quit in 1999 Alcohol:Occasional, quit 6months ago Drugs: Denies Family History: Unknown Allergies: NKDA Past History - Past Medical History Allergies/Adverse Reactions: Allergies Allergy/AdvReac Type Severity Reaction Status Date / Time warfarin sodium Allergy Severe bleeding Verified 01/21/17 07:03 [From Coumadin] Home Medications: Ambulatory Orders Apixaban [Eliquis] 2.5 mg PO BID 12/06/16 Atorvastatin Ca [Lipitor] 20 mg PO HS 12/06/16 Digoxin [Lanoxin -] 0.125 mg PO DAILY 12/06/16 Dutasteride/Tamsulosin HCl [Dutasteride-Tamsulosin 0.5-0.4] 1 each PO DAILY Furosemide [Lasix] 40 mg PO BID 12/06/16 L.acidoph,Paracasei, B.lactis [Probiotic] 1 each PO DAILY 01/19/17 Melatonin 5 mg PO HS 12/06/16 Metoprolol Succinate [Toprol XL -] 100 mg PO BID 12/06/16 Pantoprazole Sodium [Protonix] 40 mg PO BID 12/06/16 Sodium Polystyrene Sulfonate [Kayexalate] 30 gm PO ONCE #30 bottle 12/26/16 PE Head - NC/AT Lung - CTA Heart - RRR abd - soft,nt,nd ext - Left medial foot -- scab over bleeding varicose vein Not bleeding right now A/P Bleeding varicose vein left medial foot. 1. Bacitracin to area 2. Needs to come to wound care clinic -- Will then order reflux studies. Will probably need laser therapy for veins, and sclerotherapy of bleeding varicose vein. 3. No signs of bleeding right now. Please make appt for pt prior to DC -- [phone] Rishi Cervantes DO
[2017-01-21] MEDS: FUROSEMIDE 40 MG TABLET (FP) PO SCH (22:00)
[2017-01-21] MEDS: ATORVASTATIN CA 20 MG TABLET (FP) PO SCH (22:00)
[2017-01-21] MEDS: METOPROLOL SUCCINATE 100 MG TAB.SR.24H (FP) PO SCH (22:00)
[2017-01-21] MEDS: MELATONIN 5 MG TABLETS PO SCH (22:00)
[2017-01-22 00:31] LABS: URINE APPEARANCE CLOUDY; URINE BILIRUBIN NEGATIVE (NEGATIVE); URINE COLOR DKYELLOW; URINE GLUCOSE (UA) NEGATIVE (NEGATIVE); URINE KETONE NEGATIVE (NEGATIVE); URINE NITRITE NEGATIVE (NEGATIVE); URINE UROBILINOGEN NEGATIVE E.U./dl (0.2-1.0)
[2017-01-22 00:43] LABS: URINE BLOOD 3+ (NEGATIVE); URINE LEUK ESTERASE 3+ (NEGATIVE); URINE PROTEIN 2+ (NEGATIVE)
[2017-01-22 00:46] LABS: URINE RBC 69 /hpf (0-3); URINE WBC 379 /hpf (3-5)
--- NOTE | 2017-01-22 07:57 | HP ---
Admitting History and Physical - Admission History of Present Illness: Patient is a 86 [id number] presented to the ED via EMS with the chief complaint of Bleeding from a blister on the left foot. A/c to the patient, he was feeling fine until this morning, when he woke up in a pool of blood bleeding from a blister on the left leg. As soon as he saw the blood, he called an ambulance and was brought here. As per the patient, he is on Elliquis 2.5mg BID. He saw two blisters on the left foot last week. Doesn't remember scratching it or any trauma to the foot. No pain over the foot. 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 Cardiovascular: Yes: AFIB (on asiprin no coumadin bc of bleeding in past), HTN Pulmonary: Yes: Pneumonia, Other (Has progressive RLL consolidation on Chest X- ray report) Gastrointestinal: Yes: Diverticulosis, GI Bleed (diverticular bleeding), Other ( HEMORRHOIDS, antral and gastric body erosions, left inguinal hernia) Hepatobiliary: Yes: Other (developing abnormalities of LFT's -progressive) Renal/: Yes: BPH, Other (consideration for prostate procedure mentioned by ) Heme/Onc: Yes: Other (CLL followed by Dr Reyes, previously carried as NHL, 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) Infectious Disease: Yes: Other (gram negative bacteremia, and gram negatives in urine) Musculoskeletal: Yes: Osteoarthritis - Past Surgical History Past Surgical History: Yes: Cholecystectomy - Smoking History Smoking history: Former smoker Have you smoked in the past 12 months: No Aproximately how many cigarettes per day: 0 If you are a former smoker, when did you quit?: 2006 - Alcohol/Substance Use Hx Alcohol Use: No - Social History ADL: Independent 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 History of Recent Travel: No Home Medications - Allergies Allergies/Adverse Reactions: Allergies Allergy/AdvReac Type Severity Reaction Status Date / Time warfarin sodium Allergy Severe bleeding Verified 01/21/17 07:03 [From Coumadin] - Home Medications Home Medications: Ambulatory Orders Apixaban [Eliquis] 2.5 mg PO BID 12/06/16 Atorvastatin Ca [Lipitor] 20 mg PO HS 12/06/16 Digoxin [Lanoxin -] 0.125 mg PO DAILY 12/06/16 Dutasteride/Tamsulosin HCl [Dutasteride-Tamsulosin 0.5-0.4] 1 each PO DAILY Furosemide [Lasix] 40 mg PO BID 12/06/16 L.acidoph,Paracasei, B.lactis [Probiotic] 1 each PO DAILY 12/06/16 Melatonin 5 mg PO HS 12/06/16 Metoprolol Succinate [Toprol XL -] 100 mg PO BID 12/06/16 Pantoprazole Sodium [Protonix] 40 mg PO BID 12/06/16 Sodium Polystyrene Sulfonate [Kayexalate] 30 gm PO ONCE #30 bottle 12/26/16 Family Disease History - Family Disease History Family Disease History: Other: Father (stroke 74), Mother ( 72 or aspiration ) Review of Systems - Review of Systems Cardiovascular: denies: Chest Pain, Palpitations Respiratory: reports: No Symptoms Gastrointestinal: denies: Abdominal Pain, Melena, Vomiting Blood Genitourinary: reports: No Symptoms Physical Examination Vital Signs: Vital Signs Temperature 98 F 01/22/17 06:16 Pulse Rate 108 H 01/22/17 06:16 Respiratory Rate 20 01/22/17 06:16 Blood Pressure 122/66 01/22/17 06:16 O2 Sat by Pulse Oximetry (%) 100 01/21/17 23:51 Cardiovascular: Yes: Regular Rate and Rhythm Respiratory: Yes: Regular, CTA Bilaterally Gastrointestinal: Yes: Normal Bowel Sounds, Soft Edema: Yes Edema: LLE: Trace, RLE: Trace Integumentary: Yes: Other (VARIOSE VEINS) Neurological: Yes: Alert, Oriented Problem List - Problems (1) Anemia Assessment/Plan: ACUTE --MUTIFACTORIAL--BONE MARROW FAILURE--R/O GI BLEED HOLD AC TRANSFUSE PRBC MONITOR LABS GI AND HEM CONSULT PPI Code(s): D64.9 - ANEMIA, UNSPECIFIED Qualifiers: Anemia type: bone marrow failure (2) Afib Assessment/Plan: HOLD AC PENDING STABILIZATION OF HGB Code(s): I48.91 - UNSPECIFIED ATRIAL FIBRILLATION Qualifiers: (3) CLL (chronic lymphocytic leukemia) Assessment/Plan: ONCOLOGY CONSULT Code(s): C91.10 - CHRONIC LYMPHOCYTIC LEUK OF B-CELL TYPE NOT ACHIEVE REMIS (4) Bleeding from varicose vein Assessment/Plan: MONITOR Code(s): I83.899 - VARICOSE VEINS OF UNSP LOWER EXTREMITIES W OTH COMPLICATIONS Qualifiers: Laterality: right Qualified Code(s): I83.891 - Varicose veins of right lower extremities with other complications
[2017-01-22 08:09] LABS: MCH 27.9 pg (25.7-33.7); MCHC 30.3 g/dl (32.0-35.9); MEAN PLT VOLUME 9.3 fl (7.5-11.1); PLATELET COUNT 157 K/MM3 (134-434); RDW 15.7 % (11.9-15.9)
[2017-01-22 08:15] LABS: WHITE BLOOD COUNT 106.5 K/mm3 (4.0-10.0)
[2017-01-22 08:27] LABS: ALBUMIN 2.9 g/dl (3.4-5.0); CALCIUM 8.6 mg/dL (8.5-10.1)
[2017-01-22 08:42] LABS: BILIRUBIN,TOTAL 0.5 mg/dL (0.2-1.0); CREATININE 2.5 mg/dL (0.7-1.3); DIGOXIN LEVEL 0.6533 ng/ml (0.8-2.0); TOT PROT 5.5 g/dl (6.4-8.2)
[2017-01-22] MEDS ORDERED: FUROSEMIDE 40 MG/4 ML INJECTABLE VIAL IVPUSH ONE (09:01)
[2017-01-22] MEDS ORDERED: PT OWN MED DRAWER 7, Y5N ONE ×2 (09:50→21:27)
[2017-01-22] MEDS: LACTOBACILLUS ACIDOPHILUS 1 EACH TAB (FP) PO SCH (09:53)
[2017-01-22] MEDS: DIGOXIN 0.125 MG TABLET (FP) PO SCH (09:53)
[2017-01-22] MEDS: BACITRACIN 30 GM TUBE TOPICAL OINTMENT TP SCH ×2 (09:53→20:29)
[2017-01-22] MEDS: DUTASTERIDE 0.5 MG CAP (FP) PO SCH (09:53)
[2017-01-22] MEDS: FUROSEMIDE 40 MG TABLET (FP) PO SCH ×3 (09:53→21:35)
[2017-01-22] MEDS: TAMSULOSIN HCL 0.4 MG CAP.ER.24H (FP) PO SCH (09:53)
[2017-01-22] MEDS: METOPROLOL SUCCINATE 100 MG TAB.SR.24H (FP) PO SCH ×2 (09:54→21:36)
[2017-01-22] MEDS ORDERED: PATIENT'S OWN MEDICATION (NON-FORMULARY) (Dutasteride/Tamsulosin Hcl [Dutasteride-Tamsulos PO SCH (10:00)
--- NOTE | 2017-01-22 11:05 | EKG ---
Test Reason : Blood Pressure : / mmHG Vent. Rate : 087 BPM Atrial Rate : 082 BPM P-R Int : 000 ms QRS Dur : 136 ms QT Int : 424 ms P-R-T Axes : 000 -86 059 degrees QTc Int : 510 ms ATRIAL FIBRILLATION RIGHT BUNDLE BRANCH BLOCK LEFT ANTERIOR FASCICULAR BLOCK BIFASCICULAR BLOCK ABNORMAL ECG WHEN COMPARED WITH ECG OF 26-DEC-2016 16:51, Confirmed by SONA ROJO MD ([id number]) on 01/22/2017 11:05:08 AM Referred By: Confirmed By:SONA ROJO MD
[2017-01-22 11:41] LABS: PLATELET ESTIMATE ADEQUATE (NORMAL)
--- NOTE | 2017-01-22 12:14 | CONSULT ---
[id number]:: hx SLL/CLL, high WBC, anemia - History of Present Illness Chief Complaint: bleeding L foot History of Present Illness: 86 y/o M w 2 yr hx SLL/LL , on observation only, who developed bleeding from varicosity L foot, went to ER, H/H 5.6/18, plates 155K, [id number] K mostly lymphs; creat 2.4 ; pt also on Eliquis for A.fib 2.5 BID ; Pt getting PC's and bleeding stopped; seen by vascular and pt will likely need laser Rx's/sclerotherapy in future. His last visit W Dr Reyes was ; last hgb 7.9 (PCP). Pt feeling better ,no dizziness, getting PC's.He has no fever/chills/sweats and was feeling well up to the event; placed on empiric levaquin on admission.His LFT's have been minimally elevated. 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 No : Cirrhosis, Cholelithiasis, Cholecystitis, Choledocholithiasis, Hepatitis A, Hepatitis B, Hepatitis C Renal/: Yes: BPH, Other (consideration for prostate procedure mentioned by ) Infectious Disease: Yes: Other (gram negative bacteremia, and gram negatives in urine). No: AIDS, C-Diff, Herpes Zoster, HIV, MRSA, STD's, Tuberculosis, VREF Psych: No: Addictions, Anxiety, Bipolar, Depression, Panic, Psychosis, Schizophrenia, Other Musculoskeletal: Yes: Osteoarthritis Rheumatology: No: Fibromyalgia, Gout, Lupus, Rheumatoid Arthritis, Sarcoidosis, Vasculitis, Other Endocrine: No: Dimitrios's Disease, Kendal's Disease, Diabetes Insipidus, Diabetes Mellitus, Hyperparathyroidism, Hyperthyroidism, Hypothyroidism, Osteopenia, SIADH, Other Dermatology: No: Basal Cell, Cellulitis, Eczema, Melanoma, Psoriasis, Squamous Cell, Other - Past Surgical History Past Surgical History: Yes: Cholecystectomy - Alcohol/Substance Use Hx Alcohol Use: No - Smoking History Smoking history: Former smoker Have you smoked in the past 12 months: No Aproximately how many cigarettes per day: 0 If you are a former smoker, when did you quit?: 2006 - Social History Usual Living Arrangement: Alone ADL: Independent 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 History of Recent Travel: No Home Medications - Allergies Allergies/Adverse Reactions: Allergies Allergy/AdvReac Type Severity Reaction Status Date / Time warfarin sodium Allergy Severe bleeding Verified 01/21/17 07:03 [From Coumadin] - Home Medications Home Medications: Ambulatory Orders Apixaban [Eliquis] 2.5 mg PO BID 12/06/16 Atorvastatin Ca [Lipitor] 20 mg PO HS 12/06/16 Digoxin [Lanoxin -] 0.125 mg PO DAILY 12/06/16 Dutasteride/Tamsulosin HCl [Dutasteride-Tamsulosin 0.5-0.4] 1 each PO DAILY Furosemide [Lasix] 40 mg PO BID 12/06/16 L.acidoph,Paracasei, B.lactis [Probiotic] 1 each PO DAILY 12/06/16 Melatonin 5 mg PO HS 12/06/16 Metoprolol Succinate [Toprol XL -] 100 mg PO BID 12/06/16 Pantoprazole Sodium [Protonix] 40 mg PO BID 12/06/16 Acetaminophen [Tylenol .Regular Strength -] 650 mg PO Q4H PRN #0 tablet Ciprofloxacin [Cipro (Restricted To Id)] 250 mg PO BID #14 tablet 01/23/17 Family Disease History - Family Disease History Family Disease History: Other: Father (stroke 74), Mother ( 72 or aspiration ) Review of Systems - Review of Systems Constitutional: reports: No Symptoms Eyes: reports: No Symptoms HENT: reports: No Symptoms Neck: reports: No Symptoms Cardiovascular: reports: No Symptoms Respiratory: reports: No Symptoms Gastrointestinal: denies: No Symptoms, Abdominal Pain, Bloating, Constipation, Diarrhea, Dysphagia, Indigestion, Melena, Nausea, Rectal Bleeding, Vomiting, Vomiting Blood, Other Genitourinary: reports: Frequency Musculoskeletal: reports: No Symptoms Integumentary: reports: No Symptoms Neurological: reports: No Symptoms Endocrine: reports: No Symptoms Hematology/Lymphatic: reports: No Symptoms Psychiatric: reports: No Symptoms Physical Exam Vital Signs: Vital Signs Temperature 98 F 01/22/17 06:16 Pulse Rate 109 H 01/22/17 09:53 Respiratory Rate 20 01/22/17 06:16 Blood Pressure 122/66 01/22/17 06:16 O2 Sat by Pulse Oximetry (%) 100 01/21/17 23:51 Constitutional: Yes: Well Nourished, No Distress, Calm Eyes: Yes: WNL, Conjunctiva Clear, EOM Intact HENT: Yes: WNL, Atraumatic, Normocephalic Neck: Yes: WNL, Supple, Trachea Midline Cardiovascular: Yes: WNL, Pulse Irregular, S1, S2 Respiratory: Yes: WNL, Regular, CTA Bilaterally Gastrointestinal: Yes: WNL, Normal Bowel Sounds, Soft Musculoskeletal: Yes: WNL Extremities: Yes: WNL, Other (varicosities) Edema: LLE: Trace, RLE: Trace Integumentary: Yes: WNL Wound/Incision: Yes: Clean/Dry (L foot), Other Neurological: Yes: WNL, Alert, Oriented Labs: CBC, BMP 01/22/17 06:00 01/22/17 06:00 Problem List - Problems (1) Anemia due to blood loss, acute Code(s): D62 - ACUTE POSTHEMORRHAGIC ANEMIA Assessment/Plan *6 y/o M w SLL/CLL Logan stage 0-1 , but anemia (which would make it stage 3)is multifactorial, and current severe anemia due to blood loss ; do not suspect hemolysis , bili nl. The WBC has come down to around 100K ,which is close to his recent baseline values. We dont have to commit to any Rx for these values , and more observation is recommended;.On physical , there is only < 1cm LN's peripherally no organomegaly.After getting hgb close to 8 or over w Tx's, suggested pt see Dr Reyes in 1-2 weeks to repeat CBC and other parameters ;Rx for his disease to be discussed .Persistent unexplained anemia may be a cause for systemic Rx for SLL/CLL.
[2017-01-22] MEDS: SODIUM CHLORIDE 1,000 ML IV SCH (12:17)
--- NOTE | 2017-01-22 18:44 | CON.GI ---
Consult Consult Specialty:: GASTROENTEROLOGY Referred by:: HARRIET SIMON MD Reason for Consultation:: ANEMIA - History of Present Illness Chief Complaint: SEVERE BLEEDING FROM VARICOSITY ON LEFT FOOT History of Present Illness: 86 YEAR OLD MALE KNOWN TO ME FOR YEARS. 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 HE HAD A SIMILAR EPISODE OF THIS YEARS AGO. HE DENIES ANY RECTAL BLEEDING OR MELENA. HE IS GUAIAC NEGATIVE. HE ALSO HAS AN APPOINTMENT FOR A UROLOGICAL PROCEDURE THAT WAS SCHEDULED FOR 01/17/17 BUT HE POSTPONED. 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 No: Cirrhosis, Cholelithiasis, Cholecystitis, Choledocholithiasis, Hepatitis A, Hepatitis B, Hepatitis C Renal/: Yes: BPH, Other (consideration for prostate procedure mentioned by ) Heme/Onc: Yes: Other (CLL, INCREASING SPLENOMEGALY) Infectious Disease: Yes: Other (gram negative bacteremia, and gram negatives in urine). No: AIDS, C-Diff, Herpes Zoster, HIV, MRSA, STD's, Tuberculosis, VREF Psych: No: Addictions, Anxiety, Bipolar, Depression, Panic, Psychosis, Schizophrenia, Other Musculoskeletal: Yes: Osteoarthritis Rheumatology: No: Fibromyalgia, Gout, Lupus, Rheumatoid Arthritis, Sarcoidosis, Vasculitis, Other Endocrine: No: Dimitrios's Disease, Mansfield's Disease, Diabetes Insipidus, Diabetes Mellitus, Hyperparathyroidism, Hyperthyroidism, Hypothyroidism, Osteopenia, SIADH, Other Dermatology: No: Basal Cell, Cellulitis, Eczema, Melanoma, Psoriasis, Squamous Cell, Other - Past Surgical History Past Surgical History: Yes: Cholecystectomy, Colonoscopy, Upper Endoscopy - Alcohol/Substance Use Hx Alcohol Use: No - Smoking History Smoking history: Former smoker Have you smoked in the past 12 months: No Aproximately how many cigarettes per day: 0 If you are a former smoker, when did you quit?: 2006 - Social History Usual Living Arrangement: Alone ADL: Independent 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 History of Recent Travel: No Home Medications - Allergies Allergies/Adverse Reactions: Allergies Allergy/AdvReac Type Severity Reaction Status Date / Time warfarin sodium Allergy Severe bleeding Verified 01/21/17 07:03 [From Coumadin] - Home Medications Home Medications: Ambulatory Orders Apixaban [Eliquis] 2.5 mg PO BID 12/06/16 Atorvastatin Ca [Lipitor] 20 mg PO HS 12/06/16 Digoxin [Lanoxin -] 0.125 mg PO DAILY 12/06/16 Dutasteride/Tamsulosin HCl [Dutasteride-Tamsulosin 0.5-0.4] 1 each PO DAILY Furosemide [Lasix] 40 mg PO BID 12/06/16 L.acidoph,Paracasei, B.lactis [Probiotic] 1 each PO DAILY 12/06/16 Melatonin 5 mg PO HS 12/06/16 Metoprolol Succinate [Toprol XL -] 100 mg PO BID 12/06/16 Pantoprazole Sodium [Protonix] 40 mg PO BID 12/06/16 Sodium Polystyrene Sulfonate [Kayexalate] 30 gm PO ONCE #30 bottle 12/26/16 Family Disease History - Family Disease History Family Disease History: Other: Father (stroke 74), Mother ( 72 or aspiration ) Review of Systems - Review of Systems Constitutional: reports: No Symptoms Eyes: reports: No Symptoms HENT: reports: No Symptoms Neck: reports: No Symptoms Cardiovascular: reports: No Symptoms Respiratory: reports: No Symptoms Gastrointestinal: reports: No Symptoms Genitourinary: reports: Other ( ABOVE) Musculoskeletal: reports: No Symptoms Integumentary: reports: Blister, Bruising, Other (BLEEDING, LARGE VARICOSE VEINS ) Endocrine: reports: No Symptoms Hematology/Lymphatic: reports: Easily Bruised, Other (CLL) Psychiatric: reports: Anxiety, Other (MILD FORGETFULNESS) Physical Exam-GI Vital Signs: Vital Signs Temperature 97.5 F L 01/22/17 17:00 Pulse Rate 76 03/07/17 17:00 Respiratory Rate 20 01/22/17 17:00 Blood Pressure 103/55 01/22/17 17:00 O2 Sat by Pulse Oximetry (%) 100 01/22/17 09:00 Constitutional: Yes: No Distress Eyes: Yes: Conjunctiva Clear HENT: Yes: Normocephalic Neck: Yes: Supple Cardiovascular: Yes: Regular Rate and Rhythm Respiratory: Yes: Regular ...Palpate: Yes: Soft, Splenomegaly Musculoskeletal: Yes: WNL Extremities: Yes: Erythema, Other (CHRONIC CHANGES) Labs: CBC, BMP 01/22/17 06:00 01/22/17 06:00 INR, PTT INR 1.59 (0.82-1.09) H 01/21/17 11:49 Laboratory Tests 01/21/17 01/21/17 01/21/17 10:30 10:33 11:49 WBC 155.3 H* RBC 1.98 L D Hgb 5.6 L* D Hct 18.0 L D MCV 90.9 MCHC 30.9 L RDW 16.7 H Plt Count 209 INR 1.59 H Sodium Potassium Chloride Carbon Dioxide Anion Gap BUN Creatinine Creat Clearance w eGFR Random Glucose Calcium Total Bilirubin AST ALT Alkaline Phosphatase Total Protein Albumin Stool Occult Blood Negative 01/22/17 01/22/17 06:00 06:00 WBC 106.5 H* RBC 2.41 L D Hgb 6.7 L* D Hct 22.1 L D MCV 92.0 MCHC 30.3 L RDW 15.7 Plt Count 157 D INR Sodium 146 H Potassium 4.5 Chloride 108 H Carbon Dioxide 29 Anion Gap 9 BUN 34 H Creatinine 2.5 H Creat Clearance w eGFR 24.61 Random Glucose 96 D Calcium 8.6 Total Bilirubin 0.5 D AST 20 D ALT 17 Alkaline Phosphatase 106 Total Protein 5.5 L Albumin 2.9 L Stool Occult Blood Problem List - Problems (1) Anemia due to blood loss, acute Assessment/Plan: BLOOD LOSS IS NOT FROM GI ISSUE OUTPATIENT EUS NEEDS TO RESCHEDULE UROLOGICAL PROCEDURE Code(s): D62 - ACUTE POSTHEMORRHAGIC ANEMIA (2) Pancreatic cyst Code(s): K86.2 - CYST OF PANCREAS (3) Bleeding from varicose veins of left lower extremity Code(s): I83.892 - VARICOSE VEINS OF LEFT LOWER EXTREMITIES W OTH COMPLICATIONS (4) Lymphoplasmacytoid lymphoma, CLL Code(s): C83.00 - SMALL CELL B-CELL LYMPHOMA, UNSPECIFIED SITE (5) Splenomegaly Code(s): R16.1 - SPLENOMEGALY, NOT ELSEWHERE CLASSIFIED
[2017-01-22] MEDS: ATORVASTATIN CA 20 MG TABLET (FP) PO SCH (21:35)
[2017-01-22] MEDS: MELATONIN 5 MG TABLETS PO SCH (21:37)
[2017-01-23 06:19] VITALS: TEMP 98.2
[2017-01-23 08:20] LABS: MCH 28.1 pg (25.7-33.7); MCHC 30.7 g/dl (32.0-35.9); MEAN CELL VOLUME 91.4 fl (80-96); MEAN PLT VOLUME 9.4 fl (7.5-11.1); PLATELET COUNT 148 K/MM3 (134-434); RDW 16.2 % (11.9-15.9)
--- NOTE | 2017-01-23 08:42 | DS ---
Physical Examination Vital Signs: Vital Signs Temperature 98.2 F 01/23/17 06:18 Pulse Rate 77 01/23/17 06:18 Respiratory Rate 20 01/23/17 06:18 Blood Pressure 110/56 01/23/17 06:18 O2 Sat by Pulse Oximetry (%) 100 01/22/17 21:00 Labs: CBC, BMP 01/23/17 06:00 Discharge Summary Reason For Visit: ANEMIA Current Active Problems Acute kidney injury (Acute) Anemia (Acute) Anemia due to blood loss, acute (Acute) Bleeding from varicose veins of left lower extremity (Acute) Lymphoplasmacytoid lymphoma, CLL (Acute) Pancreatic cyst (Acute) Splenomegaly (Acute) Hospital Course: Patient is a 86 [id number] presented to the ED via EMS with the chief complaint of Bleeding from a blister on the left foot. A/c to the patient, he was feeling fine until this morning, when he woke up in a pool of blood bleeding from a blister on the left leg. As soon as he saw the blood, he called an ambulance and was brought here. As per the patient, he is on Elliquis 2.5mg BID. He saw two blisters on the left foot last week. Doesn't remember scratching it or any trauma to the foot. No pain over the foot. 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 Cardiovascular: Yes: AFIB (on asiprin no coumadin bc of bleeding in past), HTN Pulmonary: Yes: Pneumonia, Other (Has progressive RLL consolidation on Chest X- ray report) Gastrointestinal: Yes: Diverticulosis, GI Bleed (diverticular bleeding), Other ( HEMORRHOIDS, antral and gastric body erosions, left inguinal hernia) Hepatobiliary: Yes: Other (developing abnormalities of LFT's -progressive) Renal/: Yes: BPH, Other (consideration for prostate procedure mentioned by ) Heme/Onc: Yes: Other (CLL followed by Dr Reyes, previously carried as NHL, 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) Infectious Disease: Yes: Other (gram negative bacteremia, and gram negatives in urine) Musculoskeletal: Yes: Osteoarthritis - Past Surgical History Past Surgical History: Yes: Cholecystectomy - Problems (1) Anemia Assessment/Plan: ACUTE --MUTIFACTORIAL--BONE MARROW FAILURE--R/O GI BLEED RESUME AC S/P TRANSFUSION PRBC MONITOR LABS GI AND HEM CONSULT PPI Code(s): D64.9 - ANEMIA, UNSPECIFIED Qualifiers: Anemia type: bone marrow failure (2) Afib Assessment/Plan: HOLD AC PENDING STABILIZATION OF HGB Code(s): I48.91 - UNSPECIFIED ATRIAL FIBRILLATION Qualifiers: (3) CLL (chronic lymphocytic leukemia) Assessment/Plan: ONCOLOGY CONSULT NOTED Code(s): C91.10 - CHRONIC LYMPHOCYTIC LEUK OF B-CELL TYPE NOT ACHIEVE REMIS (4) Bleeding from varicose vein Assessment/Plan: MONITOR Code(s): I83.899 - VARICOSE VEINS OF UNSP LOWER EXTREMITIES W OTH COMPLICATIONS Qualifiers: Laterality: right Qualified Code(s): I83.891 - Varicose veins of right lower extremities with other complications Condition: Improved - Instructions Referrals: Denise West MD [Primary Care Provider] - 2 Weeks Disposition: HOME - Home Medications Comprehensive Discharge Medication List: Ambulatory Orders Apixaban [Eliquis] 2.5 mg PO BID 12/06/16 Atorvastatin Ca [Lipitor] 20 mg PO HS 12/06/16 Digoxin [Lanoxin -] 0.125 mg PO DAILY 12/06/16 Dutasteride/Tamsulosin HCl [Dutasteride-Tamsulosin 0.5-0.4] 1 each PO DAILY Furosemide [Lasix] 40 mg PO BID 12/06/16 L.acidoph,Paracasei, B.lactis [Probiotic] 1 each PO DAILY 12/06/16 Melatonin 5 mg PO HS 12/06/16 Metoprolol Succinate [Toprol XL -] 100 mg PO BID 12/06/16 Pantoprazole Sodium [Protonix] 40 mg PO BID 12/06/16 Acetaminophen [Tylenol .Regular Strength -] 650 mg PO Q4H PRN #0 tablet
[2017-01-23 09:33] LABS: ALBUMIN 3.1 g/dl (3.4-5.0); BILIRUBIN,TOTAL 0.7 mg/dL (0.2-1.0); CALCIUM 8.8 mg/dL (8.5-10.1); CREATININE 2.3 mg/dL (0.7-1.3); TOT PROT 5.8 g/dl (6.4-8.2)
[2017-01-23] MEDS: TAMSULOSIN HCL 0.4 MG CAP.ER.24H (FP) PO SCH (09:38)
[2017-01-23] MEDS: DIGOXIN 0.125 MG TABLET (FP) PO SCH (09:38)
[2017-01-23] MEDS: METOPROLOL SUCCINATE 100 MG TAB.SR.24H (FP) PO SCH (09:39)
[2017-01-23] MEDS: DUTASTERIDE 0.5 MG CAP (FP) PO SCH (09:39)
[2017-01-23] MEDS: FUROSEMIDE 40 MG TABLET (FP) PO SCH (09:39)
[2017-01-23] MEDS: LACTOBACILLUS ACIDOPHILUS 1 EACH TAB (FP) PO SCH (09:39)
[2017-01-23 09:40] VITALS: PULSE 87
[2017-01-23] MEDS: SODIUM CHLORIDE 1,000 ML IV SCH (09:40)
[2017-01-23] MEDS: BACITRACIN 30 GM TUBE TOPICAL OINTMENT TP SCH (09:40)
[2017-01-23 10:42] LABS: WHITE BLOOD COUNT 100.1 K/mm3 (4.0-10.0)
[2017-01-23 10:43] LABS: PLATELET ESTIMATE SLT DECREASED (NORMAL)
[2017-01-23 11:44] VITALS: BP 130/66
== END 2017-01-23 10:30 | disposition home or self-care (01) | DRG 812 ==
LOC: JER 06:40 → JERBED 15:10 → J8W 15:47
PROVIDERS: ADMIT Family Medicine; ATTEND Family Medicine
PROC: 30233N1 Transfusion of Nonautologous Red Blood Cells into Peripheral Vein, Percutaneous Approach (ICD-10-PCS; principal; 2017-01-21)
DX: D62 Acute posthemorrhagic anemia (principal); C91.10 Chronic lymphocytic leukemia of B-cell type not having achieved remission; K86.2 Cyst of pancreas; I48.91 Unspecified atrial fibrillation; I83.899 Varicose veins of unspecified lower extremity with other complications; Z87.891 Personal history of nicotine dependence; R16.1 Splenomegaly, not elsewhere classified
CPT/HCPCS: 36415; 36430; 71010-TC; 80053; 80162; 81003; 81015; 82272; 82550; 83605; 84484; 85025; 85610; 85730; 86850; 86900; 86901; 86922; 87040; 87086; 87186; 93005; 93010; 99285-25; P9038; P9058

== ENCOUNTER 2017-02-07 16:01 | Day surgery (SDC) | payer OTHER, MEDICARE ==
[2017-02-07 19:05] VITALS: BP 117/54; PULSE 86
[2017-02-07 19:09] VITALS: TEMP 97.6; BMI 23.6
== END 2017-02-08 03:52 | disposition home or self-care (01) ==
LOC: JBLOOD 16:01 → J8W 16:02 → JBLOOD 02-08 03:52
PROVIDERS: ATTEND Family Medicine
PROC: 30233N1 Transfusion of Nonautologous Red Blood Cells into Peripheral Vein, Percutaneous Approach (ICD-10-PCS; principal; 2017-02-07)
DX: D64.9 Anemia, unspecified (principal)
CPT/HCPCS: 36430; 86850; 86900; 86901; 86922; P9038; P9058

== ENCOUNTER 2017-05-23 15:54 | Day surgery (SDC) | payer OTHER, MEDICARE ==
[2017-05-23 18:03] LABS: MCHC 29.6 g/dl (32.0-35.9); MEAN CELL VOLUME 91.1 fl (80-96); MEAN PLT VOLUME 9.4 fl (7.5-11.1); PLATELET COUNT 146 K/MM3 (134-434); RDW 17.6 % (11.9-15.9)
[2017-05-23 18:10] LABS: WHITE BLOOD COUNT 80.9 K/mm3 (4.0-10.0)
[2017-05-23 23:28] VITALS: BP 127/79; PULSE 90; TEMP 97.8
== END 2017-05-23 23:59 | disposition home or self-care (01) ==
LOC: JBLOOD 15:54 → J7W 15:55 → JBLOOD 23:59
PROVIDERS: ATTEND Family Medicine
PROC: 30233N1 Transfusion of Nonautologous Red Blood Cells into Peripheral Vein, Percutaneous Approach (ICD-10-PCS; principal; 2017-05-23)
DX: D64.9 Anemia, unspecified (principal)
CPT/HCPCS: 36415; 36430; 85025; 86850; 86900; 86901; 86922; P9038; P9058

== ENCOUNTER 2017-09-18 09:44 | Emergency (ER) | payer OTHER, MEDICARE ==
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
[2017-09-18] MEDS ORDERED: ACETAMINOPHEN 325 MG TABLET (FP) PO ONE (10:40)
[2017-09-18 10:45] VITALS: BP 100/55; PULSE 77; TEMP 98; BMI 21.4
[2017-09-18] MEDS ORDERED: ACETAMINOPHEN 325 MG TABLET (FP) ONE (10:47)
== END 2017-09-18 11:49 | disposition home or self-care (01) ==
LOC: JER 09:44
DX: Z04.3 Encounter for examination and observation following other accident (principal); V43.52XA Car driver injured in collision with other type car in traffic accident, initial encounter; Y93.89 Activity, other specified; Y92.410 Unspecified street and highway as the place of occurrence of the external cause
CPT/HCPCS: 99281-25

== ENCOUNTER 2018-04-23 18:40 | Observation (INO) | payer OTHER, MEDICARE ==
--- NOTE | 2018-04-23 18:50 | PDOC ---
Rapid Medical Evaluation Time Seen by Provider: 04/23/18 18:45 Medical Evaluation: Allergies Allergy/AdvReac Type Severity Reaction Status Date / Time apixaban [From Eliquis] Allergy Severe Verified 01/23/18 04:01 warfarin sodium Allergy Severe bleeding Verified 01/23/18 04:01 [From Coumadin] I have performed a brief in-person evaluation of this patient. The patient presents with a chief complaint of: had blood work by Dr. West and has a hemoglobin of 6.6. He is here for a transfusion. He believes he is bleeding from his urine. On Eliquis and Digoxin Pertinent physical exam findings: bradycardic at 46bpm. I have ordered the following: labs, occult stool, EKG, type and screen, UA/ culture The patient will proceed to the ED for further evaluation. Discharge Disposition - Diagnosis Anemia, Hematuria - Referrals - Patient Instructions - Post Discharge Activity
[2018-04-23 18:53] VITALS: BP 123/54; PULSE 44; TEMP 98.3; BMI 21.6
[2018-04-23 20:04] LABS: BASO % 0.3 % (0-2.0); EOS % 0.4 % (0-4.5); HEMATOCRIT 21.3 % (35.4-49); LYMPH % 66.6 % (8-40); MCH 28.3 pg (25.7-33.7); MCHC 31.2 g/dl (32.0-35.9); MEAN CELL VOLUME 90.7 fl (80-96); MEAN PLT VOLUME 10.7 fl (7.5-11.1); MONO % 4.5 % (3.8-10.2); NEUT % 28.2 % (42.8-82.8); PLATELET COUNT 182 K/MM3 (134-434); RBC 2.35 M/mm3 (4.00-5.60); RDW 16.2 % (11.9-15.9); WHITE BLOOD COUNT 19.7 K/mm3 (4.0-10.0)
--- NOTE | 2018-04-23 20:09 | PDOC ---
History of Present Illness - General History Source: Patient, Family, Old Records Exam Limitations: No Limitations - History of Present Illness Initial Comments: 04/23/18 20:20 The patient is a 87 year old male presenting with his nephew, with a significant past medical history of NHL, Afib, HTN, Diverticulosis, BPH, Osteoarthritis and anemia with multiple blood transfusions, who presents to the emergency department complaining of low hemoglobin count to 6.6. He reports that his last transfusion was 09/2017. He reports that he has had intermittent hematuria in the past but has had 3 episodes since yesterday. He notes that he does not have any complaints other than occasional chills. He notes that he feels good. He denies any rectal bleeding. The patient has had colonoscopies in the past that were negative other than polyps. The patient denies chest pain, shortness of breath, headache or dizziness. Denies fever, nausea, vomiting, diarrhea and constipation. Allergies: apixaban, warfarin Past surgical history: Cholecystectomy Social history: Former smoker (2006) PCP: Dr. West Onc: Katelynn Reyes <Stewart Martinez - Last Filed: 04/23/18 20:20> <Lauryn Taveras - Last Filed: 04/23/18 21:32> - General Chief Complaint: Blood Transfusion Stated Complaint: BLOOD TRANSFUSION Time Seen by Provider: 04/23/18 18:45 Past History <Stewart Martinez - Last Filed: 04/23/18 20:20> - Past Medical History Anemia: No Asthma: No Cancer: Yes (lymphoma non hodgkins) Cardiac Disorders: Yes (afib-CARDIOVERSION) CVA: No COPD: No CHF: No Dementia: No Diabetes: No GI Disorders: Yes (RECTAL BLEEDING;DIVERTICULOSIS) Disorders: Yes (hematurea) HTN: No Hypercholesterolemia: Yes Liver Disease: No Seizures: No Thyroid Disease: No Other medical history: blood clot in large intestine - Surgical History Abdominal Surgery: Yes (HERNIA SX, blood clot from large intestine.) Appendectomy: No Cardiac Surgery: No Cholecystectomy: Yes Lung Surgery: No Neurologic Surgery: No Orthopedic Surgery: No - Suicide/Smoking/Psychosocial Hx Smoking Status: No Smoking History: Unknown if ever smoked Have you smoked in the past 12 months: No Number of Cigarettes Smoked Daily: 0 If you are a former smoker, when did you quit?: 2006 Cigars Per Day: 0 Information on smoking cessation initiated: No 'Breaking Loose' booklet given: 08/23/15 Hx Alcohol Use: No Drug/Substance Use Hx: No Substance Use Type: None Hx Substance Use Treatment: No <Lauryn Taveras - Last Filed: 04/23/18 21:32> - Past Medical History Allergies/Adverse Reactions: Allergies Allergy/AdvReac Type Severity Reaction Status Date / Time warfarin sodium Allergy Severe bleeding Verified 04/23/18 18:46 [From Coumadin] Home Medications: Ambulatory Orders Atorvastatin Ca [Lipitor] 20 mg PO HS 12/06/16 Furosemide [Lasix] 40 mg PO BID 12/06/16 L.acidoph,Paracasei, B.lactis [Probiotic] 1 each PO DAILY 12/06/16 Melatonin 5 mg PO HS 12/06/16 Acetaminophen [Tylenol .Regular Strength -] 650 mg PO Q4H PRN #0 tablet Montelukast Na [Singulair -] 10 mg PO HS 01/23/18 Acetaminophen [Tylenol .Regular Strength -] 650 mg PO Q4H PRN tablet 01/30/18 Albuterol 0.083% Nebulizer Nilam [Ventolin 0.083% Nebulizer Soln -] 1 amp NEB Q6H PRN amp 01/30/18 Amino Acids/Protein Hydrolys [Prosource No Carb Liquid Pkt] 30 ml PO BID@0800, 1730 #60 packet 01/30/18 Apixaban [Eliquis -] 2.5 mg PO BID #60 tablet 01/30/18 Metoprolol Succinate [Toprol XL -] 50 mg PO BID #60 tab.sr.24h 01/30/18 Multivitamins [Multivit ([facility] Formulary)] 1 tab PO DAILY tab 01/30/18 Sodium Chloride Nasal [place] [Luce [place] Nasal [place] -] 2 spray NS BID spray Amox-Tr/K Cl [Augmentin 500-125mg Tablet -] 1 tab PO BID@0800,1730 #14 tablet MDD 2 01/31/18 Review of Systems - Review of Systems Able to Perform ROS?: Yes Comments:: 04/23/18 20:20 GENERAL/CONSTITUTIONAL: (+) Chills. No fever. No weakness. HEAD, EYES, EARS, NOSE AND THROAT: No change in vision. No ear pain or discharge. No sore throat. GASTROINTESTINAL: No nausea, vomiting, diarrhea or constipation. GENITOURINARY: No dysuria, frequency, or change in urination. CARDIOVASCULAR: No chest pain or shortness of breath. RESPIRATORY: No cough, wheezing, or hemoptysis. MUSCULOSKELETAL: No joint or muscle swelling or pain. No neck or back pain. SKIN: No rash NEUROLOGIC: No headache, vertigo, loss of consciousness, or change in strength/ sensation. ENDOCRINE: No increased thirst. No abnormal weight change. HEMATOLOGIC/LYMPHATIC: No anemia, easy bleeding, or history of blood clots. ALLERGIC/IMMUNOLOGIC: No hives or skin allergy. <Stewart Martinez - Last Filed: 04/23/18 20:20> *Physical Exam - Vital Signs Last Vital Signs Temp Pulse Resp BP Pulse Ox 98.3 F 44 L 18 123/54 100 04/23/18 18:48 04/23/18 18:48 04/23/18 18:48 04/23/18 18:48 04/23/18 19:15 - Physical Exam Comments: 04/23/18 20:20 Constitutional: Awake, alert, oriented. No acute distress. Head: Normocephalic. Atraumatic Eyes: PERRL. EOMI. Conjunctivae are not pale. ENT: Mucous membranes are moist and intact. Posterior pharynx without exudates or erythema. Uvula midline. Neck: Supple. Full ROM. No lymphadenopathy. Cardiovascular: (+) Bradycardia. Regular rhythm. S1, S2 regular. Distal pulses are 2+ and symmetric. Pulmonary/Chest: No evidence of respiratory distress. Clear to auscultation bilaterally No wheezing, rales or rhonchi. Abdominal: Soft and non-distended. There is no tenderness. No rebound, guarding or rigidity. No organomegaly. No palpable masses. Good bowel sounds. Back: No CVA tenderness. Musculoskeletal: 2+ pitting edema lower extremities bilaterally. Pulses intact. Compression stockings in place to hold up the edema. No cyanosis. No clubbing. Full range of motion in all extremities. Nocalf tenderness. Radial/ pedal pulses are intact and 2+ bilaterally Skin: Skin is warm and dry. No petechiae. No purpura. Neurological: Alert and oriented to person, place, and time. Cranial nerves II -XII are grossly intact. Normal speech. Strength is grossly symmetric. No sensory deficits. Psychiatric: Good eye contact. Normal interaction, affect and behavior. <Stewart Martinez - Last Filed: 04/23/18 20:20> - Vital Signs Last Vital Signs Temp Pulse Resp BP Pulse Ox 98.3 F 44 L 18 123/54 100 04/23/18 18:48 04/23/18 18:48 04/23/18 18:48 04/23/18 18:48 04/23/18 18:48 <Lauryn Taveras - Last Filed: 04/23/18 21:32> Heart Score/ECG Review - ECG Intrepretation Comment:: 04/23/18 20:16 afib at 46, incomplete RBBB, st depression V3-4, q waves inferior leads that are age indeterminate, anterior q waves that are age indeterminate, abnl ekg <Lauryn Taveras - Last Filed: 04/23/18 21:32> ED Treatment Course - LABORATORY CBC & Chemistry Diagram: 04/23/18 19:59 04/23/18 19:59 - ADDITIONAL ORDERS Additional order review: Laboratory Results 04/23/18 19:25 Stool Occult Blood Negative 04/23/18 19:59 RBC 2.35 L D MCV 90.7 MCHC 31.2 L RDW 16.2 H MPV 10.7 Neutrophils % 28.2 L D Lymphocytes % 66.6 H D Monocytes % 4.5 D Eosinophils % 0.4 D Basophils % 0.3 <Stewart Martinez - Last Filed: 04/23/18 20:20> - LABORATORY CBC & Chemistry Diagram: 04/23/18 19:59 04/23/18 19:59 - RADIOLOGY Radiology Studies Ordered: Category Date Time Status CHEST X-RAY PORTABLE* [RAD] Stat Radiology 04/23/18 18:57 Completed <Lauryn Taveras - Last Filed: 04/23/18 21:32> Medical Decision Making - Medical Decision Making 04/23/18 19:51 a/p: 87yo male sent in by PMD for low h/h -had outpt labs yesterday that show a hemoglobin of 6.6 -intermittent hematuria -on elaquis -pt denies cp/sob/lightheadedness/weakness -denies all complaints -now following with Dr. Wise -intermittent dysuria -will repeat labs, inr, h/h -most likely will need blood transfusion 04/23/18 21:13 hemoglobin 6 will transfuse [address] in obs PMD is Jenna covered by [facility] overnight discussed with the patient hematuria on UA 04/23/18 21:14 pt agreeable to stay for obs 04/23/18 21:15 elevated wbc from CLL - at baseline 04/23/18 21:31 case discussed with [facility] resident covering for Dr. Jenna haddad, accepted into obs <Lauryn Taveras - Last Filed: 04/23/18 21:32> *DC/Admit/Observation/Transfer - Attestations Scribe Attestion: 04/23/18 20:21 Documentation prepared by Stewart Martinez, acting as medical record assistant for Lauryn Taveras DO <Stewart Martinez - Last Filed: 04/23/18 20:20> - Discharge Dispostion Decision to Admit order: Yes - Attestations Physician Attestion: 04/23/18 21:32 I, Dr. Lauryn Taveras DO, attest that this document has been prepared under my direction and personally reviewed by me in its entirety. I further attest, that it accurately reflects all work, treatment, procedures and medical decision -making performed by me. <Lauryn Taveras - Last Filed: 04/23/18 21:32> Diagnosis at time of Disposition: Anemia, Hematuria - Discharge Dispostion Condition at time of disposition: Fair - Referrals Referrals: Denise West MD [Primary Care Provider] - - Patient Instructions - Post Discharge Activity
[2018-04-23 20:20] LABS: HEMOGLOBIN 6.6 GM/dL (11.7-16.9)
[2018-04-23 20:26] LABS: INR 1.46 (0.82-1.09); PROTHROMBIN TIME (PATIENT) 16.5 SEC (9.7-13.0)
[2018-04-23 20:28] LABS: ACTIVATED PTT 30.8 SECONDS (26.9-34.4)
[2018-04-23 20:35] LABS: ALBUMIN 2.9 g/dl (3.4-5.0); ALK PHOS 96 U/L (45-117); ANION GAP 9 (8-16); BILIRUBIN,TOTAL 0.4 mg/dL (0.2-1.0); BLOOD UREA NITROGEN 51 mg/dL (7-18); CALCIUM 7.7 mg/dL (8.5-10.1); CHLORIDE 105 mmol/L (98-107); CO2 28 mmol/L (21-32); CREATININE 2.6 mg/dL (0.7-1.3); GLUCOSE,RANDOM 75 mg/dL (74-106); SGOT/AST 13 U/L (15-37); SGPT/ALT 16 U/L (12-78); SODIUM 142 mmol/L (136-145); TOT PROT 6.3 g/dl (6.4-8.2)
[2018-04-23 21:00] LABS: ANISOCYTOSIS 2+; MACROCYTOSIS 1+; OVALOCYTE 1+
[2018-04-23 21:01] LABS: PLATELET ESTIMATE ADEQUATE
--- NOTE | 2018-04-23 21:41 | HP ---
CHIEF COMPLAINT: Hematuria, anemia PCP: Dr. West HISTORY OF PRESENT ILLNESS: 87 yo man with pmh of NHL, afib, HTN, BPH and chronic anemia who presents to ED from home due to intermittent nancy hematuria over the last 3 days in the setting of two years of chronic hematuria. Pt endorses intermittent bleeding with urination for last three days, recently seen in clinic with Dr. West two days ago, where he received standard labs notable for Hgb 6.6. Pt was contacted by Dr. West and instructed to go to ED for transfusion. Pt endorses three episodes of hematuria last night and three more episodes in the afternoon today. Pt has been seen by multiple urologists over the last two years, now following with Dr. Wise. He has received cystoscopy in the past, however no recent urologic procedures, trauma, or hx of kidney stones. Pt denies any f/c /n/v/d, [place], dizziness, fatigue, CP, sob, cough, ab pain, back pain, rashes, FNDs , dysuria, frequency. He does endorse chronic hesitancy secondary BPH and does not take any medication for BPH. 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 Pt was not taking AC at the time. Pt denies any recent rectal bleeding or other bleeding sources. He endorses multiple colonoscopies in the past, however none in the last few years. Pt recently finished abx course of Keflex for UTI last week, but denies any UTI symptoms. Pt on chemotx for NHL and has chronically elevated WBC (17-25K). Pt with recent bladder U/S ~3 weeks ago with possible ureteral mass with urologist. ER course was notable for: (1)Hgb 6.6, WBC 19.7 (chronically elevated) (2)UA 2+ Leuk esterase, WBC ~600 (3)Cr 2.6 Recent Travel: None PAST MEDICAL HISTORY: Afib Anemia NHL HLD HTN Diverticulosis BPH OA PAST SURGICAL HISTORY: GB removal Social History: Smoking: Former smoker (2006) Alcohol: None Drugs: None Family History: [place] Allergies abixaban, warfarin warfarin sodium [From Coumadin] Allergy (Severe, Verified 04/23/18 18:46) bleeding HOME MEDICATIONS: Home Medications Medication Instructions Recorded Atorvastatin Ca [Lipitor] 20 mg PO HS 12/06/16 Furosemide [Lasix] 40 mg PO BID 12/06/16 L.acidoph,Paracasei, B.lactis 1 each PO DAILY 12/06/16 [Probiotic] Melatonin 5 mg PO HS 12/06/16 Acetaminophen [Tylenol .Regular 650 mg PO Q4H PRN #0 tablet 01/23/17 Strength -] Montelukast Na [Singulair -] 10 mg PO HS 01/23/18 Acetaminophen [Tylenol .Regular 650 mg PO Q4H PRN tablet 01/30/18 Strength -] Albuterol 0.083% Nebulizer Nilam 1 amp NEB Q6H PRN amp 01/30/18 [Ventolin 0.083% Nebulizer Soln -] Amino Acids/Protein Hydrolys 30 ml PO BID@0800,1730 #60 packet 01/30/18 [Prosource No Carb Liquid Pkt] Apixaban [Eliquis -] 2.5 mg PO BID #60 tablet 01/30/18 Metoprolol Succinate [Toprol XL -] 50 mg PO BID #60 tab.sr.24h 01/30/18 Multivitamins [Multivit ([facility] 1 tab PO DAILY tab 01/30/18 Formulary)] Sodium Chloride Nasal [place] [[place] 2 spray NS BID spray 01/30/18 [place] Nasal [place] -] Amox-Tr/K Cl [Augmentin 500-125mg 1 tab PO BID@0800,1730 #14 tablet 01/31/18 Tablet -] MDD 2 REVIEW OF SYSTEMS CONSTITUTIONAL: +chills Absent: fever, diaphoresis, generalized weakness, malaise, loss of appetite, weight change HEENT: Absent: rhinorrhea, nasal congestion, throat pain, throat swelling, difficulty swallowing, mouth swelling, ear pain, eye pain, visual changes CARDIOVASCULAR: Absent: chest pain, syncope, palpitations, irregular heart rate, lightheadedness , peripheral edema RESPIRATORY: Absent: cough, shortness of breath, dyspnea with exertion, orthopnea, wheezing, stridor, hemoptysis GASTROINTESTINAL: Absent: abdominal pain, abdominal distension, nausea, vomiting, diarrhea, constipation, melena, hematochezia GENITOURINARY: +Hematuria Absent: dysuria, frequency, urgency, hesitancy, flank pain, genital pain MUSCULOSKELETAL: Absent: myalgia, arthralgia, joint swelling, back pain, neck pain SKIN: Absent: rash, itching, pallor HEMATOLOGIC/IMMUNOLOGIC: Absent: easy bleeding, easy bruising, lymphadenopathy, frequent infections ENDOCRINE: Absent: unexplained weight gain, unexplained weight loss, heat intolerance, cold intolerance NEUROLOGIC: Absent: headache, focal weakness or paresthesias, dizziness, unsteady gait, seizure, mental status changes, bladder or bowel incontinence PSYCHIATRIC: Absent: anxiety, depression, suicidal or homicidal ideation, hallucinations. PHYSICAL EXAMINATION Vital Signs - 24 hr 04/23/18 04/23/18 18:48 19:15 Temperature 98.3 F Pulse Rate 44 L Respiratory 18 Rate Blood Pressure 123/54 O2 Sat by Pulse 100 100 Oximetry (%) GENERAL: Elderly man, Awake, alert, and fully oriented, in no acute distress. HEAD: Normal with no signs of trauma. Notable pallor. EYES: Pupils equal, round and reactive to light, extraocular movements intact, sclera anicteric, conjunctival pallor. No lid lag. EARS, NOSE, THROAT: Ears normal, nares patent, oropharynx clear without exudates. Moist mucous membranes. NECK: Normal range of motion, supple without lymphadenopathy, JVD, or masses. LUNGS: Breath sounds equal, clear to auscultation bilaterally. No wheezes, and no crackles. No accessory muscle use. HEART: Distant heart sounds, Bradycardic, IRR IRR, normal S1 and S2 without murmur, rub or gallop. ABDOMEN: Soft, nontender, not distended, normoactive bowel sounds, no guarding, no rebound, no masses. No hepatomegaly or splenomegaly. MUSCULOSKELETAL: Normal range of motion at all joints. No bony deformities or tenderness. No CVA tenderness. UPPER EXTREMITIES: 2+ pulses, warm, well-perfused. No cyanosis. No clubbing. No peripheral edema. LOWER EXTREMITIES: 2+ pulses, warm, well-perfused. No calf tenderness. 2+ pitting edema BL, with chronic venous insufficiency. NEUROLOGICAL: Cranial nerves II-XII intact. Normal speech. Gait not evaluated. PSYCHIATRIC: Cooperative. Good eye contact. Appropriate mood and affect. SKIN: Warm, dry, normal turgor, no rashes or lesions noted, normal capillary refill. Laboratory Results - last 24 hr CBC, BMP 04/23/18 19:59 04/23/18 19:59 04/23/18 04/23/18 04/23/18 19:25 19:59 19:59 WBC 19.7 H RBC 2.35 L D Hgb 6.6 L* D Hct 21.3 L D MCV 90.7 MCH 28.3 MCHC 31.2 L RDW 16.2 H Plt Count 182 D MPV 10.7 Absolute Neuts (auto) 5.5 Total Counted 100 Neutrophils % 28.2 L D Neutrophils % (Manual) 28.0 L D Lymphocytes % 66.6 H D Lymphocytes % (Manual) 68.0 H Monocytes % 4.5 D Monocytes % (Manual) 4 Eosinophils % 0.4 D Basophils % 0.3 Nucleated RBC % 0 Hypochromia 2+ Platelet Estimate Adequate Platelet Comment Slide scanned Anisocytosis 2+ Microcytosis 1+ Macrocytosis 1+ Ovalocytes 1+ PT with INR 16.50 H INR 1.46 H PTT (Actin FS) 30.8 Sodium Potassium Chloride Carbon Dioxide Anion Gap BUN Creatinine Creat Clearance w eGFR Random Glucose Calcium Total Bilirubin AST ALT Alkaline Phosphatase Total Protein Albumin Stool Occult Blood Negative Blood Type Antibody Screen Crossmatch 04/23/18 04/23/18 19:59 19:59 WBC RBC Hgb Hct MCV MCH MCHC RDW Plt Count MPV Absolute Neuts (auto) Total Counted Neutrophils % Neutrophils % (Manual) Lymphocytes % Lymphocytes % (Manual) Monocytes % Monocytes % (Manual) Eosinophils % Basophils % Nucleated RBC % Hypochromia Platelet Estimate Platelet Comment Anisocytosis Microcytosis Macrocytosis Ovalocytes PT with INR INR PTT (Actin FS) Sodium 142 Potassium 5.0 D Chloride 105 Carbon Dioxide 28 D Anion Gap 9 BUN 51 H D Creatinine 2.6 H D Creat Clearance w eGFR 23.47 Random Glucose 75 Calcium 7.7 L Total Bilirubin 0.4 D AST 13 L D ALT 16 Alkaline Phosphatase 96 D Total Protein 6.3 L D Albumin 2.9 L D Stool Occult Blood Blood Type O POSITIVE Antibody Screen Negative Crossmatch See Detail Urine culture pending CXR - No acute pathology EKG (per ED read) - afib at 46, incomplete RBBB, st depression V3-4, q waves inferior leads that are age indeterminate, anterior q waves that are age indeterminate, abnl ekg ASSESSMENT/PLAN: 87 yo man with pmh of NHL, afib, HTN, BPH and chronic anemia who presents to ED from home due to intermittent nancy hematuria over the last 3 days in the setting of two years of chronic hematuria. PE relatively unremarkable. Labs notable for Hgb 6.6, Cr 2.6. UA notable for 3+ hematuria, WBC 600, rbcs 3500. Will transfuse 2 units prbcs. Pt adamant he will leave after receiving blood and will likely AMA. Will require outpt urologic f/u for further evaluation of chronic hematuria. #Anemia - hgb 6.6 on admission - Pt ordered for two units of prbcs. Will likely AMA after completing tranfusings. CBC after completed 2nd unit of prbcs. - serial cbcs - vitals q4hs - FOBT negative - Iron studies - d/c with PO ferrous sulfate #Hematuria - UA 3+ hematuria; - monitor for further episodes of hematuria - Urology consult - serial CBCs - f/u urine cultures #JOON - likely secondary to volume depletion - Avoid nephrotoxic agents - IVFs - ordered for 2 units prbcs - trend Cr #NHL - normal WBC 17 -25K - Onc consult - outpt f/u for management of chemotx regimen #Afib - Afib w/ bradycardia in 40-50s on EKG - C/w with eliquis for now - Repeat EKG in AM - pt on digoxin for rate control given bradycardia #HTN - - c/w home HTN meds #HLD - c/w home statin #BPH - not currently on meds - f/u with urologist as outpt #LE edema - c/w home compression stockings - c/w home lasix dose #OA - not currently - tylenol prn as needed #Insomnia - c/w home melatonin PPX HSQ FEN NS 75cc/hr Daily lytes Regular diet Plan discussed with Dr. Amy Haro, PGY1 Hospitalist Screening - Colonoscopy Questionnaire Colonoscopy Questionnaire: Colonoscopy Questionnaire
[2018-04-23 21:54] LABS: URINE APPEARANCE CLOUDY; URINE BILIRUBIN NEGATIVE (<2.0 mg/dL); URINE BLOOD 3+ (NEGATIVE); URINE COLOR RED; URINE GLUCOSE (UA) NEGATIVE (NEGATIVE); URINE KETONE NEGATIVE (NEGATIVE); URINE NITRITE NEGATIVE (NEGATIVE); URINE UROBILINOGEN NEGATIVE mg/dL (0.2-1.0)
[2018-04-23 22:07] LABS: URINE LEUK ESTERASE 2+ (NEGATIVE); URINE PROTEIN 2+ (NEGATIVE)
--- NOTE | 2018-04-23 22:17 | PN ---
Teaching Attending Note Name of Resident: Chandrakant Haro ATTENDING PHYSICIAN STATEMENT I saw and evaluated the patient. I reviewed the resident's note and discussed the case with the resident. I agree with the resident's findings and plan as documented. SUBJECTIVE: Patient is an 87 year old man with a significant past medical history of non hodgkin's lymphoma, CKD stage 3?, resection of 1 foot of bowel due to mesenteric ischemia, persistent leukocytosis, Afib (on eliquis), HTN, Diverticulosis, BPH, Osteoarthritis and anemia with multiple blood transfusions , who presents to the emergency department complaining of low hemoglobin count to 6.6. He reports that his last transfusion was 09/2017. He reports that he has had intermittent hematuria in the past but has had 3 episodes since yesterday. He notes that he does not have any complaints other than occasional chills. He was recently treated with Keflex for one week for UTI. He has persistent leukocytosis attributed to the lymphoma. He has not been eating well recently because of problems with his dentures. He denies any rectal bleeding. The patient has had colonoscopies in the past that were negative other than polyps. OBJECTIVE: Frail looking, alert and in no acute distress Vital Signs Period Temp Pulse Resp BP Sys/Gerardo Pulse Ox Last 24 Hr 98.3 F 44 18 123/54 100-100 HEENT: No Jaundice, eye redness or discharge; pallor, PERRLA, EOMI. Normocephalic, atraumatic. External ears are normal and hearing is impaired. No nasal discharge. Neck: Supple, nontender. No palpable adenopathy or thyromegaly. No JVD Chest: Good effort. Clear to auscultation and percussion. Heart: Irregular, bradycardia. No S3, rub or murmur Abdomen: Not distended, soft, nontender and no HSM. No rebound or guarding. Normoactive bowel sounds. Ext: Peripheral pulses intact. No pitting leg edema. Venous stasis changes. Wears compression stockings. Skin: Warm and dry. No petechiae, rash or ecchymosis. Neuro: Alert. Oriented x3. CN 2-12 grossly intact. Sensation grossly intact in all four extremities and DTR are symmetric. Home Medications Medication Instructions Recorded Atorvastatin Ca [Lipitor] 20 mg PO HS 12/06/16 Furosemide [Lasix] 40 mg PO BID 12/06/16 L.acidoph,Paracasei, B.lactis 1 each PO DAILY 12/06/16 [Probiotic] Melatonin 5 mg PO HS 12/06/16 Acetaminophen [Tylenol .Regular 650 mg PO Q4H PRN #0 tablet 01/23/17 Strength -] Montelukast Na [Singulair -] 10 mg PO HS 01/23/18 Acetaminophen [Tylenol .Regular 650 mg PO Q4H PRN tablet 01/30/18 Strength -] Albuterol 0.083% Nebulizer [place]am 1 amp NEB Q6H PRN amp 01/30/18 [Ventolin 0.083% Nebulizer Soln -] Amino Acids/Protein Hydrolys 30 ml PO BID@0800,1730 #60 packet 01/30/18 [Prosource No Carb Liquid Pkt] Apixaban [Eliquis -] 2.5 mg PO BID #60 tablet 01/30/18 Metoprolol Succinate [Toprol XL -] 50 mg PO BID #60 tab.sr.24h 01/30/18 Multivitamins [Multivit ([facility] 1 tab PO DAILY tab 01/30/18 Formulary)] Sodium Chloride Nasal [place] [[place] 2 spray NS BID spray 01/30/18 [place] Nasal [place] -] Amox-Tr/K Cl [Augmentin 500-125mg 1 tab PO BID@0800,1730 #14 tablet 01/31/18 Tablet -] MDD 2 Abnormal Lab Results 04/23/18 04/23/18 04/23/18 19:59 19:59 19:59 WBC 19.7 H RBC 2.35 L D Hgb 6.6 L* D Hct 21.3 L D MCHC 31.2 L RDW 16.2 H Neutrophils % 28.2 L D Neutrophils % (Manual) 28.0 L D Lymphocytes % 66.6 H D Lymphocytes % (Manual) 68.0 H PT with INR 16.50 H INR 1.46 H BUN 51 H D Creatinine 2.6 H D Calcium 7.7 L AST 13 L D Total Protein 6.3 L D Albumin 2.9 L D Urine Protein Urine Blood Ur Leukocyte Esterase Crossmatch 04/23/18 04/23/18 19:59 21:18 WBC RBC Hgb Hct MCHC RDW Neutrophils % Neutrophils % (Manual) Lymphocytes % Lymphocytes % (Manual) PT with INR INR BUN Creatinine Calcium AST Total Protein Albumin Urine Protein 2+ H Urine Blood 3+ H Ur Leukocyte Esterase 2+ H Crossmatch See Detail ASSESSMENT AND PLAN: 1. Symptomatic anemia - Anemia likely due to combination of remote GI blood loss and acute hematuria. Getting 1 unit PRBC transfusion. Has had multiple urologic procedures to find cause of hematuria - will correctional counselor/case manager continue follow up with urologist. 2. Afib - On Metoprolol and ? digoxin for rate control. Will reduce dose of metoprolol in view of bradycardia. Continues to be on Eliquis as per his team of doctors despite hematuria. It would appear that due to prior mesenteric VTE? , the assessment by his doctors is that the benefits of continued anticoagulation outweigh the risks. However, patient also appears to have CKD and should not be on Eliquis, especially at the current dose. Will discuss with his doctors. 3. CKD Stage 3 - Etiology unclear, and its not certain that he has had a nephrologic work up. Refer to nephrology, avoid NSAIDS and aminoglycosides. 4. DVT prophylaxis - Says he took Eliquis yesterday. 5. Advance directives - Full code
[2018-04-24] MEDS ORDERED: HEPARIN NA (PORCINE) 5,000 UNITS/ML 1ML VIAL SQ SCH (06:00)
--- NOTE | 2018-04-24 11:29 | EKG ---
Test Reason : Blood Pressure : / mmHG Vent. Rate : 046 BPM Atrial Rate : 535 BPM P-R Int : 000 ms QRS Dur : 118 ms QT Int : 470 ms P-R-T Axes : 000 058 -67 degrees QTc Int : 411 ms ATRIAL FIBRILLATION WITH SLOW VENTRICULAR RESPONSE INCOMPLETE RIGHT BUNDLE BRANCH BLOCK ANTEROSEPTAL INFARCT , AGE UNDETERMINED ABNORMAL ECG Confirmed by JOSE CABALLERO MD ([id number]) on 04/24/2018 11:28:49 AM Referred By: Confirmed By:JOSE CABALLERO MD
== END 2018-04-24 03:42 | disposition left against medical advice (07) ==
LOC: JER 18:40 → JERBED 21:32 → J4W 04-24 03:29
PROVIDERS: ADMIT Internal Medicine; ATTEND Internal Medicine
PROC: 30233N1 Transfusion of Nonautologous Red Blood Cells into Peripheral Vein, Percutaneous Approach (ICD-10-PCS; principal; 2018-04-23)
DX: D64.9 Anemia, unspecified (principal); R31.9 Hematuria, unspecified; I10 Essential (primary) hypertension; I48.91 Unspecified atrial fibrillation; N40.0 Benign prostatic hyperplasia without lower urinary tract symptoms; C85.90 Non-Hodgkin lymphoma, unspecified, unspecified site; M19.90 Unspecified osteoarthritis, unspecified site; Z79.01 Long term (current) use of anticoagulants; I12.9 Hypertensive chronic kidney disease with stage 1 through stage 4 chronic kidney disease, or unspecified chronic kidney disease; N18.3 Chronic kidney disease, stage 3 (moderate); N17.9 Acute kidney failure, unspecified; E78.5 Hyperlipidemia, unspecified; G47.00 Insomnia, unspecified
CPT/HCPCS: 36415; 36430; 71045-TC-FY; 80053; 81003; 81015; 82272; 85025; 85610; 85730; 86850; 86900; 86901; 86922; 87086; 93005; 93010; 99283-25; G0378; P9038; P9058

== ENCOUNTER 2018-06-20 14:25 | Inpatient (IN) | payer OTHER, MEDICARE ==
--- NOTE | 2018-06-20 14:56 | PDOC ---
History of Present Illness - General Chief Complaint: Revisit, Lab Variance Stated Complaint: ANEMIA Time Seen by Provider: 06/20/18 14:33 History Source: Patient Exam Limitations: No Limitations - History of Present Illness Initial Comments: 06/20/18 15:03 87y M hx of afib on eliquis, nonhodgkins lymphoma, htn, bph, chronic anemia, sent by PMD for evaluatino of anemia. Had labs done as an outpatient with hbg 5 , and was referred to the ED. Pt last had a tranfusion 1-2 weeks ago at his doctors office ([facility]). Pt endoreses some dark stool the past few days. Pt denies any associated chest pain, abdmoinal pain, fever/chills, cough, palitations, hernandez. Pt notes chronic leg swelling but not worse than usual. Pt notes he does feel occasional light headedness. pt notes he occasinally takes peptobismol and at one ponit has been on an iron supplement PMD: Dr. Coronado Cards: Dr. Durán Past History - Past Medical History Allergies/Adverse Reactions: Allergies Allergy/AdvReac Type Severity Reaction Status Date / Time warfarin sodium Allergy Severe bleeding Verified 06/20/18 14:35 [From Coumadin] Home Medications: Ambulatory Orders Atorvastatin Ca [Lipitor] 20 mg PO HS 12/06/16 Furosemide [Lasix] 80 mg PO DAILY 12/06/16 Melatonin 5 mg PO HS 12/06/16 Albuterol 0.083% Nebulizer Nilam [Ventolin 0.083% Nebulizer Soln -] 1 amp NEB Q6H PRN amp 01/30/18 Apixaban [Eliquis -] 2.5 mg PO BID #60 tablet 01/30/18 Metoprolol Succinate [Toprol XL -] 50 mg PO BID #60 tab.sr.24h 01/30/18 Furosemide [Lasix] 60 mg PO HS 06/20/18 Ibrutinib [Imbruvica] 140 mg PO DAILY 06/20/18 Pantoprazole Sodium [Protonix -] 20 mg PO DAILY 06/20/18 Anemia: No Asthma: No Cancer: Yes (lymphoma non hodgkins) Cardiac Disorders: Yes (afib-CARDIOVERSION) CVA: No COPD: No CHF: No Dementia: No Diabetes: No GI Disorders: Yes (RECTAL BLEEDING;DIVERTICULOSIS) Disorders: Yes (hematurea) HTN: No Hypercholesterolemia: Yes Liver Disease: No Seizures: No Thyroid Disease: No - Surgical History Abdominal Surgery: Yes (HERNIA SX, blood clot from large intestine.) Appendectomy: No Cardiac Surgery: No Cholecystectomy: Yes Lung Surgery: No Neurologic Surgery: No Orthopedic Surgery: No - Suicide/Smoking/Psychosocial Hx Smoking Status: No Smoking History: Unknown if ever smoked Have you smoked in the past 12 months: No Number of Cigarettes Smoked Daily: 0 If you are a former smoker, when did you quit?: 2006 Cigars Per Day: 0 'Breaking Loose' booklet given: 08/23/15 Hx Alcohol Use: No Drug/Substance Use Hx: No Substance Use Type: None Hx Substance Use Treatment: No Review of Systems - Review of Systems Able to Perform ROS?: Yes Comments:: 06/20/18 15:51 Constitutional - no reported Fever, Chills, HEENT: no reported vision changes, sore throat Respiratory: no reported cough, sob, hemoptysis Cardiac: + light headedness, no reported chest pain, palpitations, leg swelling Abd/GI: +Dark stool no reported abd pain, nausea, vomiting, blood per rectum, diarrhea : no reported dysuria, frequency, discharge Musculskelatal - no reported back pain, joint swelling skin - no reported bruising, erythema, rash neurological: no reported headache, numbness, focal weakness, tingling, ataxia, hematologic: no reported easy bruising, easy bleeding *Physical Exam - Physical Exam Comments: 06/20/18 15:52 GENERAL: The patient is awake, alert, and fully oriented, Nontoxic - in no acute distress. HEAD: Normocephalic, atraumatic. EYES: extraocular movements intact, sclera anicteric, pale conjunctiva ENT: Normal voice, Moist mucous membranes. NECK: Normal range of motion, supple LUNGS: Breath sounds equal, clear to auscultation bilaterally. No wheezes, no rhonchi, no rales. HEART: Regular rate and rhythm, normal S1 and S2 without murmur, rub or gallop. ABDOMEN: Soft, nontender, No guarding, no rebound. No CVA tenderness RECTAL: Dark colored stool EXTREMITIES: Normal range of motion, +3 boris edema. neg homans NEUROLOGICAL: No facial assymetry, Normal speech, PSYCH: Normal mood, normal affect. SKIN: Warm, Dry, normal turgor, ED Treatment Course - LABORATORY CBC & Chemistry Diagram: 06/20/18 15:55 06/20/18 15:55 Medical Decision Making - Medical Decision Making 06/20/18 15:57 87y M hx of nonhodkins lymphoma, afib on eliquis sent to ED for anemia 06/20/18 16:44 guaiac positiv stool anemic to 4.8 will give protonix will transfuse blood will transfer to [facility] for further mangement pts vitals noted for mild tachycardia and borderlyine hypertension 06/20/18 17:[address] Coronado, covered by dr. West - Will admit to hospitalist who admits for Jenna in the evenings. case dw dr. woods will admit to telemetry at [facility]. Case discussed in detail with admitting physician including history, physical exam and ancillary studies. Admitting physician has assumed care for the patient, will follow all pending diagnostics and will complete the evaluation and treatment. *DC/Admit/Observation/Transfer Diagnosis at time of Disposition: Acute kidney injury Afib Qualifiers: Atrial fibrillation type: chronic Qualified Code(s): I48.2 - Chronic atrial fibrillation - Discharge Dispostion Condition at time of disposition: Guarded Decision to Admit order: Yes - Referrals - Patient Instructions - Post Discharge Activity
[2018-06-20 16:18] LABS: MCH 30.8 pg (25.7-33.7); MCHC 32.8 g/dl (32.0-35.9); MEAN CELL VOLUME 93.9 fl (80-96); MEAN PLT VOLUME 9.8 fl (7.5-11.1); PLATELET COUNT 147 K/MM3 (134-434); RBC 1.55 M/mm3 (4.00-5.60); RDW 21.1 % (11.9-15.9); WHITE BLOOD COUNT 12.9 K/mm3 (4.0-10.8)
[2018-06-20 16:23] LABS: HEMATOCRIT 14.5 % (35.4-49); HEMOGLOBIN 4.8 GM/dl (11.7-16.9)
[2018-06-20] MEDS ORDERED: PANTOPRAZOLE SODIUM 80 MG in SODIUM CHLORIDE 100 ML IVPB ONE (16:23)
[2018-06-20 16:29] LABS: INR 1.27 (0.82-1.09); PROTHROMBIN TIME (PATIENT) 14.2 SEC (10.2-13.0)
[2018-06-20] MEDS ORDERED: PANTOPRAZOLE SODIUM 80 MG in SODIUM CHLORIDE 100 ML IVPB SCH (16:30)
[2018-06-20 16:34] LABS: ALBUMIN 2.2 g/dl (3.5-5.0); ALK PHOS 46 U/L (32-92); ANION GAP 13 (8-16); BILIRUBIN,TOTAL 1.2 mg/dl (0.2-1.0); CHLORIDE 103 mmol/L (98-107); CO2 24 mmol/L (22-28); CREATININE 3.5 mg/dl (0.6-1.3); GLUCOSE,RANDOM 92 mg/dl (74-106); POTASSIUM 4.2 mmol/L (3.5-5.1); SGOT/AST 30 U/L (10-42); SGPT/ALT 18 U/L (10-40); SODIUM 140 mmol/L (136-145); TOT PROT 4.6 g/dl (6.4-8.3)
[2018-06-20 16:46] LABS: BLOOD UREA NITROGEN > 101 mg/dl (7-18)
[2018-06-20 17:42] LABS: ANISOCYTOSIS 3+; PLATELET ESTIMATE ADEQUATE
[2018-06-20] MEDS ORDERED: PANTOPRAZOLE SODIUM 40 MG VIAL ONE (17:49)
--- NOTE | 2018-06-20 23:55 | PN ---
Teaching Attending Note Name of Resident: Jasmin Kenney ATTENDING PHYSICIAN STATEMENT I saw and evaluated the patient. I reviewed the resident's note and discussed the case with the resident. I agree with the resident's findings and plan as documented. SUBJECTIVE: Patient is an 87 year old man with hsitory of afib on eliquis, nonhodgkins lymphoma, HTN, BPH, chronic anemia, sent by PMD for evaluatinon of anemia. Had labs done as an outpatient and Hb was 5 g/dL. Patient last had a tranfusion 1- 2 weeks ago at his doctors office and he has had melena stool in the past few days. He denies any associated chest pain, abdominal pain, fever/chills, cough, or EMANUEL. He has chronic leg swelling for which he is on lasix but says it is not worse than usual. He notes he does feel occasional light headedness. OBJECTIVE: Alert and in no acute distress Vital Signs Period Temp Pulse Resp BP Sys/Gerardo Pulse Ox Last 24 Hr 98.3 F 109 20 94/73 95 HEENT: No Jaundice, eye redness or discharge, PERRLA, EOMI. Normocephalic, atraumatic. External ears are normal and hearing is grossly intact. No nasal discharge. Neck: Supple, nontender. No palpable adenopathy or thyromegaly. No JVD Chest: Good effort. Clear to auscultation and percussion. Heart: Regular. No S3, rub or murmur Abdomen: Not distended, soft, nontender and no HSM. No rebound or guarding. Normoactive bowel sounds. Ext: Peripheral pulses intact. Leg edema. Skin: Warm and dry. No petechiae, or rash. Has ecchymosis on limbs and body. Neuro: Alert. Oriented x3. CN 2-12 grossly intact. Sensation grossly intact in all four extremities and DTR are symmetric. Current Medications Generic Name Dose Route Start Last Admin Trade Name Freq PRN Reason Stop Dose Admin Pantoprazole Sodium 80 mg/ 100 mls @ 10 mls/hr 06/20/18 16:30 06/20/18 17:59 Sodium Chloride IVPB 10 mls/hr Q10H CORNELIA Administration 8 MG/HR Home Medications Medication Instructions Recorded Atorvastatin Ca [Lipitor] 20 mg PO HS 12/06/16 Furosemide [Lasix] 80 mg PO DAILY 12/06/16 Melatonin 5 mg PO HS 12/06/16 Albuterol 0.083% Nebulizer Nilam 1 amp NEB Q6H PRN amp 01/30/18 [Ventolin 0.083% Nebulizer Soln -] Apixaban [Eliquis -] 2.5 mg PO BID #60 tablet 01/30/18 Metoprolol Succinate [Toprol XL -] 50 mg PO BID #60 tab.sr.24h 01/30/18 Furosemide [Lasix] 60 mg PO HS 06/20/18 Ibrutinib [Imbruvica] 140 mg PO DAILY 06/20/18 Pantoprazole Sodium [Protonix -] 20 mg PO DAILY 06/20/18 Abnormal Lab Results 06/20/18 06/20/18 06/20/18 15:55 15:55 15:55 WBC 12.9 H RBC 1.55 L Hgb 4.8 L* Hct 14.5 L RDW 21.1 H Monocytes % (Manual) 1 L PT with INR 14.2 H INR 1.27 H BUN > 101 H Creatinine 3.5 H Calcium 8.0 L Total Bilirubin 1.2 H Total Protein 4.6 L Albumin 2.2 L Crossmatch 06/20/18 15:59 WBC RBC Hgb Hct RDW Monocytes % (Manual) PT with INR INR BUN Creatinine Calcium Total Bilirubin Total Protein Albumin Crossmatch See Detail ASSESSMENT AND PLAN: 1. Symptomatic anemia - Anemia likely multifactorial including bone marrow suppression, renal anemia and GI loss. Getting blood transfusion. Protonix 40 mg IV bid. Monitor HCT. Consult GI for possible EGD/colonoscopy. In the future may benefit from Procrit and iron therapy. Leukocytosis may be reactive, but will get UA to rule out infection. Leg edema is likely due to many factors - low albumin, poor LV function? - get ECHO. 2. Hypoalbuminemia - May be exacerbating his leg edema. Possibly due to combined effects of malnutrition and inflammation associated with comorbid chronic conditions. Will ensure adequate dietary protein intake and also consult sand slinger operator. Rule out proteinuria. 3. CKD stage 3 - Etiology unclear. Consult nephrology and avoid nephrotoxic agents such as NSAIDS, aminoglycosides, contrast dyes and certain Alternative medicine products. 4. Afib - Rate controlled. On Eliquis - since he is not having bight red blood per rectum, will continue Eliquis for now and consult cardiology for expert advice. 5. Nonhodgkin's Lymphoma - Consult oncology. 6. DVT prophylaxis - On Eliquis 7. Advance directives - Full code
[2018-06-20] MEDS ORDERED: ALBUTEROL SO4 0.083% IH SOL 2.5 MG/3 ML VIAL.NEB. NEB PRN (23:56)
--- NOTE | 2018-06-20 23:57 | HP ---
CHIEF COMPLAINT: "anemia" PCP: Dr. Coronado HISTORY OF PRESENT ILLNESS: Patient is a 87 y/o male with a history of NHL, afib, HTN, BPH, and anemia who presents with anemia. 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 Patient went to [facility] and was transferred to [facility]. Patient reports feelings of weakness, some fatigue and headache. The headache is in the back of his head and radiates down his neck. Patient reports he has been having dark, watery diarrhea. When he wipes he notices blood on the paper but does not notice any in the toilet. He has a frequent history of blood in his urine but reports for the past month he has not noticed any. Patient is currently being treated for his NHL by Dr. Renee with Ibrutinib. Patient denies LOC, chest pain, shortness of breath, or vision changes. 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 Social History: Smoking: quit for 20 years, used t smoke 1 pack a day Alcohol: socially Drugs: Family History: Allergies warfarin sodium [From Coumadin] Allergy (Severe, Verified 06/20/18 14:35) bleeding HOME MEDICATIONS: Home Medications Medication Instructions Recorded Atorvastatin Ca [Lipitor] 20 mg PO HS 12/06/16 Furosemide [Lasix] 80 mg PO DAILY 12/06/16 Melatonin 5 mg PO HS 12/06/16 Albuterol 0.083% Nebulizer Nilam 1 amp NEB Q6H PRN amp 01/30/18 [Ventolin 0.083% Nebulizer Soln -] Apixaban [Eliquis -] 2.5 mg PO BID #60 tablet 01/30/18 Metoprolol Succinate [Toprol XL -] 50 mg PO BID #60 tab.sr.24h 01/30/18 Furosemide [Lasix] 60 mg PO HS 06/20/18 Ibrutinib [Imbruvica] 140 mg PO DAILY 06/20/18 Pantoprazole Sodium [Protonix -] 20 mg PO DAILY 06/20/18 REVIEW OF SYSTEMS CONSTITUTIONAL: generalized weakness Absent: fever, chills, diaphoresis, malaise, loss of appetite, weight change HEENT: Absent: rhinorrhea, difficulty swallowing, mouth swelling, ear pain, eye pain, visual changes CARDIOVASCULAR: lightheadedness Absent: chest pain, syncope, palpitations, irregular heart rate, peripheral edema RESPIRATORY: Absent: cough, shortness of breath, dyspnea with exertion, orthopnea, wheezing, stridor, hemoptysis GASTROINTESTINAL:diarrhea, possible melena Absent: abdominal pain, abdominal distension, nausea, vomiting, constipation, hematochezia GENITOURINARY: Absent: dysuria, frequency, urgency, hesitancy, hematuria, flank pain, genital pain MUSCULOSKELETAL: Absent: myalgia, arthralgia, joint swelling, back pain, neck pain SKIN: Absent: rash, itching, pallor HEMATOLOGIC/IMMUNOLOGIC: Absent: easy bleeding, easy bruising, lymphadenopathy, frequent infections ENDOCRINE: Absent: unexplained weight gain, unexplained weight loss, heat intolerance, cold intolerance NEUROLOGIC: headache, dizziness, Absent: focal weakness or paresthesias, unsteady gait, seizure, mental status changes, PSYCHIATRIC: Absent: anxiety, depression, PHYSICAL EXAMINATION Vital Signs - 24 hr 06/20/18 14:26 Temperature 98.3 F Pulse Rate 109 H Respiratory 20 Rate Blood Pressure 94/73 O2 Sat by Pulse 95 Oximetry (%) GENERAL: Awake, alert, and fully oriented, in no acute distress. HEAD: Normal with no signs of trauma. EYES: Pupils equal, round and reactive to light, extraocular movements intact, NECK: Normal range of motion, supple without lymphadenopathy, LUNGS: Breath sounds equal, clear to auscultation bilaterally. HEART: irregularly irregular, no murmur ABDOMEN: Soft, nontender, not distended, normoactive bowel sounds MUSCULOSKELETAL: Normal range of motion at all joints. No bony deformities or tenderness. UPPER EXTREMITIES:multiple ecchymosis on forearms, right forearm large 10 x5 non tender ecchymosis over elbow LOWER EXTREMITIES: 2+ pulses, warm, well-perfused. 3 + pitting edema bilaterally NEUROLOGICAL: Cranial nerves II-XII intact. PSYCHIATRIC: Cooperative. Good eye contact. Appropriate mood and affect. Laboratory Results - last 24 hr 06/20/18 06/20/18 06/20/18 15:55 15:55 15:55 WBC 12.9 H RBC 1.55 L Hgb 4.8 L* Hct 14.5 L MCV 93.9 MCH 30.8 MCHC 32.8 RDW 21.1 H Plt Count 147 MPV 9.8 Absolute Neuts (auto) 7.7 Neutrophils % No Result Required. Neutrophils % (Manual) 79.0 Lymphocytes % No Result Required. Lymphocytes % (Manual) 20.0 Monocytes % (Manual) 1 L Hypochromia 1+ Platelet Estimate Adequate Platelet Comment Few large plts. Anisocytosis 3+ Microcytosis 1+ PT with INR 14.2 H INR 1.27 H Sodium 140 Potassium 4.2 Chloride 103 Carbon Dioxide 24 Anion Gap 13 BUN > 101 H Creatinine 3.5 H Creat Clearance w eGFR 16.65 Random Glucose 92 Calcium 8.0 L Total Bilirubin 1.2 H AST 30 ALT 18 Alkaline Phosphatase 46 Total Protein 4.6 L Albumin 2.2 L Stool Occult Blood Blood Type Antibody Screen Crossmatch 06/20/18 06/20/18 06/20/18 15:55 15:55 15:59 WBC RBC Hgb Hct MCV MCH MCHC RDW Plt Count MPV Absolute Neuts (auto) Neutrophils % Neutrophils % (Manual) Lymphocytes % Lymphocytes % (Manual) Monocytes % (Manual) Hypochromia Platelet Estimate Platelet Comment Anisocytosis Microcytosis PT with INR INR Sodium Potassium Chloride Carbon Dioxide Anion Gap BUN Creatinine Creat Clearance w eGFR Random Glucose Calcium Total Bilirubin AST ALT Alkaline Phosphatase Total Protein Albumin Stool Occult Blood Positive Blood Type Cancelled O POSITIVE Antibody Screen Cancelled Negative Crossmatch See Detail ASSESSMENT/PLAN: Patient is a 87 y/o male with a history of NHL, afib, HTN, BPH, and anemia who presents with anemia. #Anemia 2/2 to chronic disease vs acute GI bleed vs NHL treatment - 3 unit PRBC - f/u repeat CBC - f/u GI consult - NPO - IV bolus protonix 40 mg BID - f/u iron studies #CKD - f/u Renal consult - f/u UA #afib - continue Elliquis - metoprol succinate hold for now - Patients Media Sales Consultant is Dr. Durán - f/u EKG #NHL - Ibrutinib 140 mg daily - Patients oncologist is Dr. Renee #HTN - continue furosemide, 80 mg in am and 60 mg in pm - recent Echo in March showed normal ejection fraction #DVT ppx - patient currently anticoagulated Dispo: - medications need to be reconciled Visit type - Emergency Visit Emergency Visit: No - New Patient This patient is new to me today: Yes Date on this admission: 06/21/18 - Critical Care Critical Care patient: No Hospitalist Screening - Colonoscopy Questionnaire Colonoscopy Questionnaire: Colonoscopy Questionnaire - Patient: 50 - 75 years old and never had a screening colonoscopy: Unknown History of colon or rectal polyps, or CA: Unknown History of IBD, Crohn's disease or UC: Unknown History of abdominal radiation therapy as a child: Unknown - Relative: 1 with colon or rectal CA, or polyps at age 60 or younger: Unknown Colon or rectal CA diagnosed at age 45 or younger: Unknown Multiple relatives with colon or rectal CA: Unknown - Outcome: Screening Result: Negative Screen
[2018-06-21 01:44] LABS: URINE APPEARANCE CLEAR; URINE BILIRUBIN NEGATIVE (<2.0 mg/dL); URINE COLOR LTYELLOW; URINE GLUCOSE (UA) NEGATIVE (NEGATIVE); URINE KETONE NEGATIVE (NEGATIVE); URINE LEUK ESTERASE NEGATIVE (NEGATIVE); URINE NITRITE NEGATIVE (NEGATIVE); URINE PROTEIN NEGATIVE (NEGATIVE); URINE UROBILINOGEN NEGATIVE mg/dL (0.2-1.0)
[2018-06-21 02:09] LABS: EPI CELLS RARE /HPF (FEW); URINE MUCUS RARE
[2018-06-21] MEDS ORDERED: MELATONIN 5 MG TABLETS PO ONE (02:58)
--- NOTE | 2018-06-21 09:02 | EKG ---
Test Reason : Blood Pressure : / mmHG Vent. Rate : 075 BPM Atrial Rate : 040 BPM P-R Int : 000 ms QRS Dur : 138 ms QT Int : 442 ms P-R-T Axes : 000 -83 -60 degrees QTc Int : 493 ms UNDETERMINED RHYTHM LEFT AXIS DEVIATION RIGHT BUNDLE BRANCH BLOCK INFERIOR INFARCT , AGE UNDETERMINED ABNORMAL ECG WHEN COMPARED WITH ECG OF 23-APR-2018 19:35, CURRENT UNDETERMINED RHYTHM PRECLUDES RHYTHM COMPARISON, NEEDS REVIEW RIGHT BUNDLE BRANCH BLOCK HAS REPLACED INCOMPLETE RIGHT BUNDLE BRANCH BLOCK CRITERIA FOR ANTEROSEPTAL INFARCT ARE NO LONGER PRESENT INFERIOR INFARCT IS NOW PRESENT Confirmed by GHAZALA ORONA, HENRY ([id number]) on 06/21/2018 9:01:36 AM Referred By: MD NAGY Confirmed By:HENRY VIVAR MD
--- NOTE | 2018-06-21 09:04 | CON.GI ---
Consult Consult Specialty:: GI Reason for Consultation:: Anemia, positive occult blood in stools - History of Present Illness Chief Complaint: Anemia, dark stool. History of Present Illness: 87 y.o. man with lymphoma, on chemoRx, atrial fibrillation on Eliquis. Has had gross hematuria on Eliquis but none seen in past few weeks. Was transfused one week ago at [facility] by his oncologist, Dr Reyes. The Hgb at that time is not known. Noted black watery stool for about 3 days before this admission but no bowel movement yesterday or today. He also took PeptoBismol in the past week, is not entirely sure whether or not this preceded the dark stool. Was apparently referred for admission after being found to be severely anemic again. He says his last colonoscopy was about [address] Bhatti. He believes he had an EGD about the same time. Previously he had been a patient of Dr Goddard and had EGD and colonoscopy with him as well. He denies any prior h /o GI bleeding; the only bleeding he has ever noticed was gross hematuria. - History Source History Provided By: Patient Limitations to Obtaining History: No Limitations - Past Medical History PACKING INSPECTOR: No: Alzheimer's, CVA, Dementia, Migraine, Multiple Sclerosis, Peripheral Neuropathy, Parkinson's, Seizure, Syncope, TIA, Vertigo, Other Cardio/Vascular: Yes: AFIB (on asiprin no coumadin bc of bleeding in past), HTN Pulmonary: Yes: Pneumonia, Other (Has progressive RLL consolidation on Chest X- ray report) Gastrointestinal: Yes: Diverticulosis, GI Bleed (diverticular bleeding), Other ( HEMORRHOIDS, antral and gastric body erosions, left inguinal hernia) Hepatobiliary: Yes: Other (developing abnormalities of LFT's -progressive). No : Cirrhosis, Cholelithiasis, Cholecystitis, Choledocholithiasis, Hepatitis A, Hepatitis B, Hepatitis C Renal/: Yes: BPH, Hematuria, Other (consideration for prostate procedure mentioned by ) Heme/Onc: Yes: Anemia, Current Chemotherapy, Other (lymphoma) Infectious Disease: Yes: Other (gram negative bacteremia, and gram negatives in urine). 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 History of Recent Travel: No Home Medications - Allergies Allergies/Adverse Reactions: Allergies Allergy/AdvReac Type Severity Reaction Status Date / Time warfarin sodium Allergy Severe bleeding Verified 06/20/18 14:35 [From Coumadin] - Home Medications Home Medications: Ambulatory Orders Atorvastatin Ca [Lipitor] 20 mg PO HS 12/06/16 Furosemide [Lasix] 80 mg PO DAILY 12/06/16 Melatonin 5 mg PO HS 12/06/16 Albuterol 0.083% Nebulizer Nilam [Ventolin 0.083% Nebulizer Soln -] 1 amp NEB Q6H PRN amp 01/30/18 Apixaban [Eliquis -] 2.5 mg PO BID #60 tablet 01/30/18 Metoprolol Succinate [Toprol XL -] 50 mg PO BID #60 tab.sr.24h 01/30/18 Furosemide [Lasix] 60 mg PO HS 06/20/18 Ibrutinib [Imbruvica] 140 mg PO DAILY 06/20/18 Pantoprazole Sodium [Protonix -] 20 mg PO DAILY 06/20/18 Family Disease History - Family Disease History Family Disease History: Other: Father (stroke 74), Mother ( 72 or aspiration ) Review of Systems - Review of Systems Genitourinary: reports: Hematuria Hematology/Lymphatic: reports: Easily Bruised Physical Exam-GI Vital Signs: Vital Signs Temperature 97.5 F L 06/21/18 06:00 Pulse Rate 74 06/21/18 06:00 Respiratory Rate 18 06/21/18 06:00 Blood Pressure 111/47 06/21/18 06:00 O2 Sat by Pulse Oximetry (%) 95 06/20/18 21:00 Constitutional: Yes: Moderate Distress, Thin Cardiovascular: Yes: Pulse Irregular ...Rectal Exam: Yes: Other (No stool in rectal vault. Prostate 3+.) Edema: Yes Edema: LLE: 2+, RLE: 2+ Integumentary: Yes: Bruising Neurological: Yes: Alert, Oriented Labs: CBC, BMP 06/20/18 15:55 06/20/18 15:55 INR, PTT INR 1.27 (0.82-1.09) H 06/20/18 15:55 Assessment/Plan 87 y.o. man with melena x several days while on Eliquis. Admitted with BUN>100, creatinine 3.5. Hgb was 6.6 in April, BUN and creatinine were elevated then but lower than they are at present. Currently he is receiving a transfusion and does not appear to have active bleeding --- no bowel movement in past 36 hours, and no stool in rectal vault on digital rectal exam. He has microscopic hematuria, diffuse ecchymoses. The markedly elevated BUN/creatinine ratio of over 30:1 suggests either an upper GI bleeding source or small bowel or right colon bleeding source. I would hold his Eliquis for now. I do not know what his most recent Hgb was post- transfusion last week but I would think probable he was brought up to at least 7 -8 gms. We cannot contemplate endoscopy while he is on Eliquis; any biopsy or therapeutic procedure (cautery, clipping) would run a substantial risk of precipitating bleeding that could not be controlled.
--- NOTE | 2018-06-21 09:08 | EKG ---
Test Reason : Blood Pressure : / mmHG Vent. Rate : 072 BPM Atrial Rate : 357 BPM P-R Int : 000 ms QRS Dur : 142 ms QT Int : 448 ms P-R-T Axes : 000 -80 -51 degrees QTc Int : 490 ms ATRIAL FIBRILLATION LEFT AXIS DEVIATION RIGHT BUNDLE BRANCH BLOCK INFERIOR INFARCT (CITED ON OR BEFORE 23-JAN-2018) T WAVE ABNORMALITY, CONSIDER LATERAL ISCHEMIA ABNORMAL ECG WHEN COMPARED WITH ECG OF 20-JUN-2018 16:09, PREVIOUS ECG HAS UNDETERMINED RHYTHM, NEEDS REVIEW Confirmed by GHAZALA ORONA, HENRY ([id number]) on 06/21/2018 9:08:26 AM Referred By: Confirmed By:HENRY VIVAR MD
[2018-06-21] MEDS: PANTOPRAZOLE SODIUM 40 MG VIAL IVPUSH SCH ×2 (09:29→22:13)
[2018-06-21] MEDS: FUROSEMIDE 40 MG TABLET (FP) PO SCH (09:35)
[2018-06-21] MEDS ORDERED: APIXABAN 2.5 MG TABLET PO SCH (10:00)
[2018-06-21] MEDS ORDERED: IBRUTINIB 140 MG PO SCH (10:00)
--- NOTE | 2018-06-21 10:10 | PN ---
Progress Note (short form) - Note Progress Note: Chief Complaint: Events noted, notes reviewed, resting in bed, denies any chest pain or dyspnea History of Present Illness: Seen and examined on telemetry. Full consult dictated Ideally A/C therapy with Eliquis to be continued indefinitely related to patient 's [id number] score of 6, unless it is absolutely contraindicated (re- initiation to be deferred pending resolution of current presentation) Medications: Current Medications Albuterol Sulfate (Ventolin 0.083% Nebulizer Soln -) 1 amp NEB Q6H PRN PRN Reason: SHORT OF BREATH/WHEEZING Amino Acids (Prosource No Carb Liquid Pkt) 30 ml PO BID@0800,1730 CORNELIA Atorvastatin Calcium (Lipitor -) 20 mg PO HS CORNELIA Furosemide (Lasix -) 80 mg PO DAILY [facility] Last Admin: 06/21/18 09:35 Dose: 80 mg Furosemide (Lasix -) 60 mg PO HS [facility] Non-Formulary Medication (Ibrutinib [Imbruvica]) 140 mg PO DAILY [facility] Pantoprazole Sodium (Protonix Iv) 40 mg IVPUSH BID [facility] Last Admin: 06/21/18 09:29 Dose: 40 mg Review of Systems - Review of Systems Constitutional: no symptoms reported Respiratory: denies Cough or Sputum Production Cardiovascular: as noted above Gastrointestinal: denies Nausea, Vomiting, Diarrhea, Constipation or Abdominal Pain Genitourinary: no symptoms reported Musculoskeletal: no symptoms reported Endocrine: no symptoms reported Vital Signs: Last Vital Signs Temp Pulse Resp BP Pulse Ox 97.5 F L 74 18 115/52 95 06/21/18 10:00 06/21/18 10:00 06/21/18 10:00 06/21/18 10:00 06/21/18 10:00 Intake & Output 06/18/18 06/19/18 06/20/18 06/21/18 23:59 23:59 23:59 23:59 Intake Total 130 400 Output Total 300 325 Balance -170 75 Weight 154 lb Constitutional: No Distress, Calm Neck: Supple Negative JVD No Bruit Respiratory: Diminished Breath Sounds at the Bases Cardiovascular: S1 S2 Irregularly Irregular Grade 2/6 SM Gastrointestinal: Soft Benign Normal Bowel Sounds Ext: 1-2+ Edema Labs: CBC, BMP 06/21/18 10:46 06/21/18 10:00 INR, PTT INR 1.12 (0.83-1.09) H 06/21/18 10:46 Assessment/Plan ASSESSMENT: 1. Progressive weakness related to profound anemia, gastrointestinal bleed is a suspect source to be determined 2. CAD angina pectoris, stable 3. Diastolic LV dysfunction with chronic class 0-I NYHA classification LV failure 4. Persistent atrial fibrillation with [id number] score of 6 on A/C with DOAC's /Eliquis, currently on hold 5. History of CVA/TIA 6. HTN 7. Hypercholesterolemia 8. 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 History of recurrent diverticular bleed 10. CKD 12. History of hematuria 13. History of CLL with anemia and thrombocytopenia 14. History of non Hodgkin's lymphoma PLAN: 1. Eliquis to be withheld at this point pending resolution of the above noted presentation, termite control technician A/C is recommended considering the above noted co- morbidities unless it is absolutely contraindicated, alternative would be JEANETTE closure devise/Watchman device 2. Continue Metoprolol XL 3. Continue Lasix with caution and close monitoring of renal function 4. Continue Lipitor 5. Transfuse to maintain Hg equal or > 8.0 Bouchra Lu M.D.
--- NOTE | 2018-06-21 10:22 | CONSULT ---
Consult - text type - Consultation Consultation Note: Renal Consult for JOON This is a 87 year old gentleman with Hx of nonhodgkins lymphoma on chemo, Afib ob eliquis, hypertension, BPH, CKD, Anemia requring transfusions who was sent into the ED with acute on chronic animia and found to have JOON. Pt notes melena for the past week. Also reports using NSAIDs within the past week. No Abd pain, N/V/D. No flank pain. Was told in the past that his kidney function was not normal but has never seen a manager discovery. Denies any history of stones. On Diuretics at home. No fever, chils, CP, SOB. PMhx: as above Allergies: Warfarin (?) Family Hx: NC Social Hx: No T/A/D ROS: as per HPI, all other pertinent ros negative Home Medications Medication Instructions Recorded Atorvastatin Ca [Lipitor] 20 mg PO HS 12/06/16 Furosemide [Lasix] 80 mg PO DAILY 12/06/16 Melatonin 5 mg PO HS 12/06/16 Albuterol 0.083% Nebulizer Nilam 1 amp NEB Q6H PRN amp 01/30/18 [Ventolin 0.083% Nebulizer Soln -] Apixaban [Eliquis -] 2.5 mg PO BID #60 tablet 01/30/18 Metoprolol Succinate [Toprol XL -] 50 mg PO BID #60 tab.sr.24h 01/30/18 Furosemide [Lasix] 60 mg PO HS 06/20/18 Ibrutinib [Imbruvica] 140 mg PO DAILY 06/20/18 Pantoprazole Sodium [Protonix -] 20 mg PO DAILY 06/20/18 Vital Signs Temperature 97.5 F L 06/21/18 06:00 Pulse Rate 74 06/21/18 06:00 Respiratory Rate 18 06/21/18 06:00 Blood Pressure 111/47 06/21/18 06:00 O2 Sat by Pulse Oximetry (%) 95 06/20/18 21:00 Intake & Output 06/18/18 06/19/18 06/20/18 06/21/18 23:59 23:59 23:59 23:59 Intake Total 130 400 Output Total 300 325 Balance -170 75 Weight 69.853 kg NAD awake and alert on room air Neck supple, no JVD irregular, no M/R CTA, no rales or wheeze soft NT/ND, no hepatomegatly, no rebound or guarding + edema in LE, no cyanosis or clubbing CBC, BMP 06/20/18 15:55 Laboratory Tests 06/20/18 15:55 Sodium 140 Potassium 4.2 Chloride 103 Carbon Dioxide 24 Anion Gap 13 BUN > 101 H Creatinine 3.5 H Creat Clearance w eGFR 16.65 Random Glucose 92 Calcium 8.0 L Albumin 2.2 L Current Medications Albuterol Sulfate (Ventolin 0.083% Nebulizer Soln -) 1 amp NEB Q6H PRN PRN Reason: SHORT OF BREATH/WHEEZING Atorvastatin Calcium (Lipitor -) 20 mg PO HS [facility] Furosemide (Lasix -) 80 mg PO DAILY [facility] Last Admin: 06/21/18 09:35 Dose: 80 mg Furosemide (Lasix -) 60 mg PO HS [facility] Non-Formulary Medication (Ibrutinib [Imbruvica]) 140 mg PO DAILY [facility] Pantoprazole Sodium (Protonix Iv) 40 mg IVPUSH BID [facility] Last Admin: 06/21/18 09:29 Dose: 40 mg 87 year old gentleman with Hx of nonhodgkins lymphoma on chemo, Afib ob eliquis , hypertension, BPH, CKD, Anemia requring transfusions who was sent into the ED with acute on chronic animia and found to have JOON. #JOON (multifactorial secondary to hypoprofusion from GI bleed +/- ATN from NSAIDs +/- hypovolemia +/- Tumor lysis syndrome) #CKD (baseline Cr unknown) #Acute GI bleed #Anemia #Lymphoma #BPH No acute indication for [employer]ER No uremic symptoms despite high BUN (due to GIB) check urine studies and renal/bladder US would hold standing lasix and give PRN for SOB Dose all meds for CrCl < 15 Avoid NSIAD/LYRIC/ARB at this time transfuse to Hgb > 8 Check prostate size and check PVR with US Thank you will follow Peewee Ivy DO
[2018-06-21 10:41] LABS: ALBUMIN 2.1 g/dl (3.4-5.0); ALK PHOS 57 U/L (45-117); ANION GAP 9 (8-16); BILIRUBIN,TOTAL 1.1 mg/dL (0.2-1.0); BLOOD UREA NITROGEN 97 mg/dL (7-18); CALCIUM 7.9 mg/dL (8.5-10.1); CHLORIDE 108 mmol/L (98-107); CO2 27 mmol/L (21-32); CREATININE 3.4 mg/dL (0.7-1.3); GLUCOSE,RANDOM 75 mg/dL (74-106); POTASSIUM 3.8 mmol/L (3.5-5.1); SGOT/AST 26 U/L (15-37); SGPT/ALT 22 U/L (12-78); SODIUM 144 mmol/L (136-145); TOT PROT 5.1 g/dl (6.4-8.2)
[2018-06-21 11:27] LABS: BASO % 0.1 % (0-2.0); EOS % 0.1 % (0-4.5); HEMATOCRIT 22.7 % (35.4-49); HEMOGLOBIN 7.5 GM/dL (11.7-16.9); LYMPH % 42.9 % (8-40); MCH 30.5 pg (25.7-33.7); MCHC 33.2 g/dl (32.0-35.9); MEAN CELL VOLUME 91.9 fl (80-96); MEAN PLT VOLUME 10.3 fl (7.5-11.1); MONO % 4.7 % (3.8-10.2); NEUT % 52.2 % (42.8-82.8); PLATELET COUNT 136 K/MM3 (134-434); RBC 2.47 M/mm3 (4.00-5.60); RDW 16.1 % (11.9-15.9); WHITE BLOOD COUNT 11.7 K/mm3 (4.0-10.0)
[2018-06-21 11:39] LABS: INR 1.12 (0.83-1.09); PROTHROMBIN TIME (PATIENT) 12.7 SEC (9.7-13.0)
[2018-06-21 11:50] LABS: PHOSPHOROUS 5.1 mg/dL (2.5-4.9)
[2018-06-21 11:56] LABS: URIC ACID 14.7 mg/dL (2.6-7.2)
--- NOTE | 2018-06-21 12:04 | PN ---
Progress Note, Physician Chief Complaint: AWAKE ALERT FAMILY BEDSIDE EVENTS AND NOTES REVIEWED DENIES CHEST PAIN NO SOB C/O RIGHT LEG PAIN - Current Medication List Current Medications: Active Medications Albuterol Sulfate (Ventolin 0.083% Nebulizer Soln -) 1 amp NEB Q6H PRN PRN Reason: SHORT OF BREATH/WHEEZING Atorvastatin Calcium (Lipitor -) 20 mg PO HS [facility] Furosemide (Lasix -) 80 mg PO DAILY [facility] Last Admin: 06/21/18 09:35 Dose: 80 mg Furosemide (Lasix -) 60 mg PO HS [facility] Non-Formulary Medication (Ibrutinib [Imbruvica]) 140 mg PO DAILY [facility] Pantoprazole Sodium (Protonix Iv) 40 mg IVPUSH BID [facility] Last Admin: 06/21/18 09:29 Dose: 40 mg - Objective Vital Signs: Vital Signs Temperature 97.5 F L 06/21/18 10:00 Pulse Rate 74 06/21/18 10:00 Respiratory Rate 18 06/21/18 10:00 Blood Pressure 115/52 06/21/18 10:00 O2 Sat by Pulse Oximetry (%) 95 06/21/18 10:00 Constitutional: Yes: Mild Distress Eyes: Yes: WNL HENT: Yes: WNL Neck: Yes: WNL Cardiovascular: Yes: Pulse Irregular Respiratory: Yes: Diminished, On Nasal O2 Gastrointestinal: Yes: WNL Genitourinary: Yes: Other Musculoskeletal: Yes: Muscle Weakness Extremities: Yes: Erythema Edema: Yes Edema: RLE: 1+ Peripheral Pulses WNL: Yes Integumentary: Yes: Erythema Wound/Incision: Yes: Open to air, Excoriated Neurological: Yes: Pre-Existing Deficit ...Motor Strength: LLE, RLE Psychiatric: Yes: WNL Labs: CBC, BMP 06/21/18 10:46 06/21/18 10:00 INR, PTT INR 1.12 (0.83-1.09) H 06/21/18 10:46 Problem List - Problems (1) Acute kidney injury Code(s): N17.9 - ACUTE KIDNEY FAILURE, UNSPECIFIED (2) Afib Code(s): I48.91 - UNSPECIFIED ATRIAL FIBRILLATION Qualifiers: Atrial fibrillation type: chronic Qualified Code(s): I48.2 - Chronic atrial fibrillation (3) Anemia Code(s): D64.9 - ANEMIA, UNSPECIFIED Qualifiers: Anemia type: other cause Other causes of anemia: other cause, not classified Qualified Code(s): D64.89 - Other specified anemias (4) GIB (gastrointestinal bleeding) Code(s): K92.2 - GASTROINTESTINAL HEMORRHAGE, UNSPECIFIED (5) Abdominal pain Code(s): R10.9 - UNSPECIFIED ABDOMINAL PAIN (6) CLL (chronic lymphocytic leukemia) Code(s): C91.10 - CHRONIC LYMPHOCYTIC LEUK OF B-CELL TYPE NOT ACHIEVE REMIS Assessment/Plan STOP ELIQUIS TRANSFUSE PRBC RISK OF BEING OFF ANTICOAGULATION EXPLAINED TO PATIENT AND HIS BROTHER BEDSIDE CHECK CBC TONIGHT ARF NEPHROLOGY EVAL URIC ACID 14 IVF GENTLE HYDRATION CLEAR DIET GI BLEED SEEN BY DR GUY MONITOR FOR NOW
--- NOTE | 2018-06-21 14:10 | CONS ---
DATE OF CONSULTATION: 06/21/2018 CONSULTATION REQUESTED BY: Denise West MD, Odin Martinez MD CHIEF COMPLAINT: Cardiovascular evaluation, anemia, probable gastrointestinal bleed. 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 Upon evaluation in the emergency room, the patient was noted to have evidence of profound anemia and in addition was noted to have guaiac-positive stool consistent with gastrointestinal bleed. The patient denies any chest discomfort. The patient reports dyspnea with minimal physical exertion. Denies orthopnea or paroxysmal nocturnal dyspnea. Reports bilateral lower extremity edema that has worsened recently. Denies palpitations, dizziness, lightheadedness or syncope. Denies fatigue or tiredness. 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 SOCIAL HISTORY: Denies smoking. FAMILY HISTORY: No history of coronary artery disease. ALLERGIES: WARFARIN. MEDICAL THERAPY: Currently includes Ventolin nebulizer, Lipitor 20 mg once a day, Lasix 80 mg once daily in the morning and Lasix 60 mg once daily in the evening, Imbruvica 140 mg once a day, Protonix 40 mg IV push twice daily. REVIEW OF SYSTEMS: Head and neck: Denies headache, photophobia, blurring of vision. Respiratory: No cough or sputum production. Cardiovascular: As noted above. Gastrointestinal: Denies nausea, vomiting, diarrhea, abdominal discomfort. Genitourinary: No symptoms reported. Musculoskeletal: History of degenerative joint disease. PHYSICAL EXAMINATION: Vital signs: Blood pressure is 115/52 mmHg, pulse rate is 74 beats per minute and regular. Head and neck: Pupils to light and accommodation. Extraocular muscles are intact. Anicteric sclerae. Negative JVD. No bruit appreciated. Chest: Diminished breath sounds at the bases bilaterally. Cardiovascular: S1, S2, irregularly irregular. A grade 2 over 6 systolic murmur. Abdomen: Soft. Benign. Normoactive bowel sounds. Extremities: Bilateral edema 1+ to 2+. Diminished distal pulses. No calf tenderness. LABORATORY DATA: CBC revealed a white cell count of 11.7, hemoglobin 7.5, platelet count 136. Basic metabolic profile revealed a sodium of 144, potassium 3.8, BUN 97, creatinine 3.4, glucose 75. INR 1.12. ASSESSMENT: 1. Progressive weakness, related to profound anemia. Gastrointestinal bleed is the suspect. Source to be determined. 2. Coronary artery disease, angina pectoris; stable. 3. Diastolic left ventricular dysfunction with chronic class 0 to I [place] [employer] classification left ventricular failure. 4. Persistent atrial fibrillation with CHADS-Vasc score of 6; on anticoagulation with Eliquis currently on hold. 5. History of cerebrovascular disease, transient ischemic attack. 6. Hypertension. 7. Hypercholesterolemia. 8. Post-bowel surgery for acute mesenteric ischemia, due to embolic disease. 9. History of recurrent diverticular bleed. 10. Chronic kidney disease with acute exacerbation. 11. History of hematuria. 12. History of CLL (chronic lymphatic leukemia), with anemia and thrombocytopenia. 13. History of non-Hodgkin lymphoma. RECOMMENDATIONS: 1. Eliquis therapy to be withheld at this point, pending resolution of the above-noted presentation. Long-term anticoagulation is recommended, considering the above-noted comorbidities, unless it is absolutely contraindicated. Alternative would be left atrial appendage closure device, Watchman device. 2. Continuation/resumption of metoprolol XL. 3. Continuation with Lasix with caution and close monitoring of renal function. 4. Continuation with Lipitor. 5. Transfusion to maintain hemoglobin equal or greater than 8. Thank you for the kind referral. MANOLO HAWLEY M.D. [id number]
[2018-06-21] MEDS: AMINO ACIDS/PROTEIN HYDROLYS 30 ML LIQUID.PKT PO SCH (16:51)
[2018-06-21] MEDS: ALLOPURINOL 100 MG TABLET (FP) PO SCH (16:51)
[2018-06-21 20:40] LABS: HEMOGLOBIN 9.1 GM/dL (11.7-16.9); MCH 30.5 pg (25.7-33.7); MCHC 33.8 g/dl (32.0-35.9); MEAN CELL VOLUME 90.2 fl (80-96); MEAN PLT VOLUME 9.9 fl (7.5-11.1); PLATELET COUNT 136 K/MM3 (134-434); RBC 2.99 M/mm3 (4.00-5.60); RDW 16.3 % (11.9-15.9); WHITE BLOOD COUNT 11.6 K/mm3 (4.0-10.0)
[2018-06-21] MEDS ORDERED: FUROSEMIDE 40 MG TABLET (FP) PO SCH (22:00)
[2018-06-21] MEDS: ATORVASTATIN CA 20 MG TABLET (FP) PO SCH (22:13)
[2018-06-21] MEDS: MELATONIN 5 MG TABLETS PO PRN (23:12)
[2018-06-22 06:36] LABS: SERUM IRON SATURATION 13 % (15-55); TOTAL IRON BINDING CAPACITY 220 ug/dL (250-450); UIBC 192 ug/dL (111-343)
[2018-06-22 07:35] LABS: BASO % 0.1 % (0-2.0); EOS % 0.1 % (0-4.5); HEMATOCRIT 26.5 % (35.4-49); HEMOGLOBIN 9.2 GM/dL (11.7-16.9); LYMPH % 43.9 % (8-40); MCH 30.8 pg (25.7-33.7); MCHC 34.5 g/dl (32.0-35.9); MEAN CELL VOLUME 89.4 fl (80-96); MONO % 5.5 % (3.8-10.2); NEUT % 50.4 % (42.8-82.8); PLATELET COUNT 123 K/MM3 (134-434); RBC 2.97 M/mm3 (4.00-5.60); RDW 16.3 % (11.9-15.9); WHITE BLOOD COUNT 9.6 K/mm3 (4.0-10.0)
[2018-06-22 08:00] LABS: CALCIUM 7.7 mg/dL (8.5-10.1); CHLORIDE 105 mmol/L (98-107); SODIUM 145 mmol/L (136-145)
[2018-06-22 08:07] LABS: ALBUMIN 2.2 g/dl (3.4-5.0); ALK PHOS 64 U/L (45-117); ANION GAP 10 (8-16); BILIRUBIN,TOTAL 1.3 mg/dL (0.2-1.0); BLOOD UREA NITROGEN 82 mg/dL (7-18); CO2 30 mmol/L (21-32); CREATININE 2.9 mg/dL (0.7-1.3); GLUCOSE,RANDOM 78 mg/dL (74-106); MAGNESIUM 2.2 mg/dL (1.8-2.4); PHOSPHOROUS 4.1 mg/dL (2.5-4.9); SGOT/AST 24 U/L (15-37); SGPT/ALT 23 U/L (12-78); TOT PROT 5.3 g/dl (6.4-8.2)
[2018-06-22 08:31] LABS: POTASSIUM 2.8 mmol/L (3.5-5.1)
[2018-06-22] MEDS: AMINO ACIDS/PROTEIN HYDROLYS 30 ML LIQUID.PKT PO SCH ×2 (08:35→17:31)
[2018-06-22] MEDS ORDERED: KCL 10 MEQ IVPB 10 MEQ/100 ML INFUS.BAG IVPB SCH (09:00)
[2018-06-22] MEDS ORDERED: POTASSIUM CHLORIDE TABS 10 MEQ TABLET.ER (FP) PO ONE (09:00)
--- NOTE | 2018-06-22 09:38 | PN ---
Progress Note (short form) - Note Progress Note: Dr Lu's thoughtful note appreciated. Pt's Hgb is steady now off Eliquis. He obviously has strong indications for continued anticoagulation, with a history of embolism to small bowel. Will arrange EGD and colonoscopy for tomorrow. Consent obtained from patient. Unfortunately in cases like this it is often impossible to identify with confidence a single bleeding source.
[2018-06-22] MEDS: PANTOPRAZOLE SODIUM 40 MG VIAL IVPUSH SCH ×2 (09:46→21:21)
[2018-06-22] MEDS: ALLOPURINOL 100 MG TABLET (FP) PO SCH (09:46)
[2018-06-22] MEDS: FUROSEMIDE 40 MG TABLET (FP) PO SCH (09:47)
[2018-06-22] MEDS ORDERED: PEG 3350/NA SULF BICARB CL/KCL 4000 ML SOLN.RECON PO ONE (10:00)
--- NOTE | 2018-06-22 10:28 | PN ---
Progress Note (short form) - Note Progress Note: Renal follow up for JOON Pt seen and examined at the bedside awake and alert sitting in a chair no acute complaints no sob, chest pain, abd pain, N/V/D making urine Vital Signs Temperature 97.8 F 06/22/18 08:44 Pulse Rate 74 06/22/18 08:44 Respiratory Rate 20 06/22/18 08:44 Blood Pressure 121/60 06/22/18 08:44 O2 Sat by Pulse Oximetry (%) 99 06/21/18 22:00 Intake & Output 06/19/18 06/20/18 06/21/18 06/22/18 23:59 23:59 23:59 23:59 Intake Total 130 690 250 Output Total 785 533 8868 Balance -170 365 -900 Weight 69.853 kg NAD CTA, no rales or wheeze soft NT/ND + edema in LE CBC, BMP 06/22/18 06:10 06/22/18 06:10 Current Medications Albuterol Sulfate (Ventolin 0.083% Nebulizer Soln -) 1 amp NEB Q6H PRN PRN Reason: SHORT OF BREATH/WHEEZING Allopurinol (Zyloprim -) 100 mg PO DAILY [facility] Last Admin: 06/22/18 09:46 Dose: 100 mg Amino Acids (Prosource No Carb Liquid Pkt) 30 ml PO BID@0800,1730 [facility] Last Admin: 06/22/18 08:35 Dose: 30 ml Atorvastatin Calcium (Lipitor -) 20 mg PO HS [facility] Last Admin: 06/21/18 22:13 Dose: 20 mg Potassium Chloride 10 meq/ (Sodium Chloride) 105 mls @ 100 mls/hr IVPB Q60M [facility] Stop: 06/22/18 11:59 Sodium Chloride (Normal Saline -) 1,000 mls @ 60 mls/hr IV ASDIR [facility] Melatonin (Melatonin) 5 mg PO HS PRN PRN Reason: INSOMNIA Last Admin: 06/21/18 23:12 Dose: 5 mg Non-Formulary Medication (Ibrutinib [Imbruvica]) 140 mg PO DAILY [facility] Pantoprazole Sodium (Protonix Iv) 40 mg IVPUSH BID [facility] Last Admin: 06/22/18 09:46 Dose: 40 mg 87 year old gentleman with Hx of nonhodgkins lymphoma on chemo, Afib ob eliquis , hypertension, BPH, CKD, Anemia requring transfusions who was sent into the ED with acute on chronic animia and found to have JOON. #JOON (multifactorial secondary to hypoprofusion from GI bleed +/- ATN from NSAIDs +/- hypovolemia +/- Tumor lysis syndrome) #CKD (baseline Cr unknown) #Acute GI bleed #Anemia #Lymphoma #BPH Renal function with mild improvement today Uric acid levels noted, agree with allopurinol daily pt does not meet criteria for TLS despite having high uric acid will d/c diuretics and start gentle IVF, is any signs of volume overload or sob can give IVP Lasix as needed for endoscopy tomorrow per GI (would avoid any phos based bowel preps) Kidney US report pending Hgb improved s/p transfusion no indication for PLATE PUT IN WORKER Peewee Ivy DO
--- NOTE | 2018-06-22 10:30 | CONSULT ---
Consult Consult Specialty:: Hematology/Oncology Referred by:: Reason for Consultation:: Low Hgb, Anemia - History of Present Illness Chief Complaint: GI bleeding History of Present Illness: is an 87 y/o male with a PMHx of NHL, afib, HTN, BPH who is currently on ibrutinib therapy per oncologist . Patient presented to [facility] with anemia and Hgb of 4.8 at presentation. He reported having black watery stools for 3 days prior to presentation, hematuria. Patient is on Eliquis for A.fib which has been held since admission. He has received a GI evaluation due to a high suspicion for a GI bleed and is receiving pRBC transfusions. On speaking with patient, he is alert, pleasant. He says he has a colonoscopy and EGD scheduled for tomorrow. He has been doing well on Ibrutinib so far with no complaints but did not bring his pills with him so has been off the pills for the past day. - History Source History Provided By: Patient Limitations to Obtaining History: No Limitations - Past Medical History SUPER[employer]ICE: No: Alzheimer's, CVA, Dementia, Migraine, Multiple Sclerosis, Peripheral Neuropathy, Parkinson's, Seizure, Syncope, TIA, Vertigo, Other Cardio/Vascular: Yes: AFIB (on asiprin no coumadin bc of bleeding in past), HTN Pulmonary: Yes: Pneumonia, Other (Has progressive RLL consolidation on Chest X- ray report) Gastrointestinal: Yes: Diverticulosis, GI Bleed (diverticular bleeding), Other ( HEMORRHOIDS, antral and gastric body erosions, left inguinal hernia) Hepatobiliary: Yes: Other (developing abnormalities of LFT's -progressive). No : Cirrhosis, Cholelithiasis, Cholecystitis, Choledocholithiasis, Hepatitis A, Hepatitis B, Hepatitis C Renal/: Yes: BPH, Hematuria, Other (consideration for prostate procedure mentioned by ) Infectious Disease: Yes: Other (gram negative bacteremia, and gram negatives in urine). 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 History of Recent Travel: No Home Medications - Allergies Allergies/Adverse Reactions: Allergies Allergy/AdvReac Type Severity Reaction Status Date / Time warfarin sodium Allergy Severe bleeding Verified 06/20/18 14:35 [From Coumadin] - Home Medications Home Medications: Ambulatory Orders Atorvastatin Ca [Lipitor] 20 mg PO HS 12/06/16 Furosemide [Lasix] 80 mg PO DAILY 12/06/16 Melatonin 5 mg PO HS 12/06/16 Albuterol 0.083% Nebulizer Nilam [Ventolin 0.083% Nebulizer Soln -] 1 amp NEB Q6H PRN amp 01/30/18 Apixaban [Eliquis -] 2.5 mg PO BID #60 tablet 01/30/18 Metoprolol Succinate [Toprol XL -] 50 mg PO BID #60 tab.sr.24h 01/30/18 Furosemide [Lasix] 60 mg PO HS 06/20/18 Ibrutinib [Imbruvica] 140 mg PO DAILY 06/20/18 Pantoprazole Sodium [Protonix -] 20 mg PO DAILY 06/20/18 Family Disease History - Family Disease History Family Disease History: Other: Father (stroke 74), Mother ( 72 or aspiration ) Review of Systems - Review of Systems Constitutional: reports: No Symptoms Eyes: reports: No Symptoms HENT: reports: No Symptoms Neck: reports: No Symptoms Cardiovascular: reports: No Symptoms Respiratory: reports: No Symptoms Gastrointestinal: reports: Rectal Bleeding Genitourinary: reports: Hematuria Musculoskeletal: reports: No Symptoms Integumentary: reports: No Symptoms Neurological: reports: No Symptoms Endocrine: reports: No Symptoms Hematology/Lymphatic: reports: No Symptoms Psychiatric: reports: No Symptoms Physical Exam Vital Signs: Vital Signs Temperature 97.8 F 06/22/18 08:44 Pulse Rate 74 06/22/18 08:44 Respiratory Rate 20 06/22/18 08:44 Blood Pressure 121/60 06/22/18 08:44 O2 Sat by Pulse Oximetry (%) 99 06/21/18 22:00 Constitutional: Yes: No Distress, Calm Eyes: Yes: WNL, Conjunctiva Clear HENT: Yes: WNL, Normocephalic Neck: Yes: WNL, Trachea Midline Cardiovascular: Yes: WNL, Pulse Irregular (A.fib with irregular pulse) Respiratory: Yes: WNL, Regular Gastrointestinal: Yes: WNL, Normal Bowel Sounds Renal/: Yes: WNL Extremities: Yes: WNL Edema: No Peripheral Pulses WNL: No Labs: CBC, BMP 06/22/18 06:10 06/22/18 06:10 Assessment/Plan 87 y/o male with PMHx of NHL, afib, HTN, BPH who is currently on ibrutinib therapy per oncologist now presenting with severe anemia, GI bleed and Hx of hematuria - Agree with plan to hold Eliquis and proceed with EGD + Colonoscopy tomorrow. Noted BUN/Cr of 82/2.9 which strongly suggests a GI bleed -Elevated uric acid of 14.7 likely from JOON, Monitor with daily uric acid, also please obtain LDH -per patient, NHL under good control with imbruvica. Told him to have relative- his brother or nephew bring the medication from home so he can continue it here. There is a well documented withdrawal syndrome if drug is abruptly stopped - hence would recommend resuming it after his colonoscopy. Ibrutinib can exacerbate GI bleeding hence can be restarted once GI bleeding has stopped. -replete electrolytes, K of 2.8 today -Thank you for the consultation, will continue to follow with you.
[2018-06-22] MEDS: POTASSIUM CHLORIDE 10 MEQ in SODIUM CHLORIDE 100 ML IVPB SCH ×3 (10:41→12:45)
[2018-06-22] MEDS: SODIUM CHLORIDE 1,000 ML IV SCH (10:42)
--- NOTE | 2018-06-22 11:25 | PN ---
Progress Note (short form) - Note Progress Note: Chief Complaint: Events noted, notes reviewed, sitting in a chair, denies any chest pain or dyspnea, peripheral edema persists but improved History of Present Illness: Seen and examined on telemetry. Events noted, notes reviewed, sitting in a chair , denies any chest pain or dyspnea, peripheral edema persists but improved BUN/Creatinine slightly improved, as per discussion with nephrology plan to initiate hydration with caution and withholding Lasix therapy As outlined in yesterday's note ideally A/C therapy with Eliquis to be continued indefinitely related to patient's [id number] score of 6, unless it is absolutely contraindicated (re-initiation to be deferred pending resolution of current presentation) Medications: Current Medications Albuterol Sulfate (Ventolin 0.083% Nebulizer Soln -) 1 amp NEB Q6H PRN PRN Reason: SHORT OF BREATH/WHEEZING Allopurinol (Zyloprim -) 100 mg PO DAILY [facility] Last Admin: 06/22/18 09:46 Dose: 100 mg Amino Acids (Prosource No Carb Liquid Pkt) 30 ml PO BID@0800,1730 [facility] Last Admin: 06/22/18 08:35 Dose: 30 ml Atorvastatin Calcium (Lipitor -) 20 mg PO HS [facility] Last Admin: 06/21/18 22:13 Dose: 20 mg Potassium Chloride 10 meq/ (Sodium Chloride) 105 mls @ 100 mls/hr IVPB Q60M [facility] Stop: 06/22/18 11:59 Last Admin: 06/22/18 10:41 Dose: 100 mls/hr Sodium Chloride (Normal Saline -) 1,000 mls @ 60 mls/hr IV ASDIR [facility] Last Admin: 06/22/18 10:42 Dose: 60 mls/hr Melatonin (Melatonin) 5 mg PO HS PRN PRN Reason: INSOMNIA Last Admin: 06/21/18 23:12 Dose: 5 mg Non-Formulary Medication (Ibrutinib [Imbruvica]) 140 mg PO DAILY [facility] Pantoprazole Sodium (Protonix Iv) 40 mg IVPUSH BID [facility] Last Admin: 06/22/18 09:46 Dose: 40 mg Review of Systems - Review of Systems Constitutional: no symptoms reported Respiratory: denies Cough or Sputum Production Cardiovascular: as noted above Gastrointestinal: denies Nausea, Vomiting, Diarrhea, Constipation or Abdominal Pain Genitourinary: no symptoms reported Musculoskeletal: no symptoms reported Endocrine: no symptoms reported Vital Signs: Last Vital Signs Temp Pulse Resp BP Pulse Ox 97.8 F 74 20 121/60 99 06/22/18 08:44 06/22/18 08:44 06/22/18 08:44 06/22/18 08:44 06/21/18 22:00 Intake & Output 06/19/18 06/20/18 06/21/18 06/22/18 23:59 23:59 23:59 23:59 Intake Total 130 690 250 Output Total 251 964 9822 Balance -170 365 -900 Weight 154 lb Constitutional: No Distress, Calm Neck: Supple Negative JVD No Bruit Respiratory: Diminished Breath Sounds at the Bases Cardiovascular: S1 S2 Irregularly Irregular Grade 2/6 SM Gastrointestinal: Soft Benign Normal Bowel Sounds Ext: 1+ Edema Labs: CBC, BMP 06/22/18 06:10 06/22/18 06:10 Assessment/Plan ASSESSMENT: 1. Progressive weakness related to profound anemia, gastrointestinal bleed is a suspect source to be determined 2. CAD angina pectoris, stable 3. Diastolic LV dysfunction with chronic class 0-I NYHA classification LV failure, compensated/euvolemic 4. Persistent atrial fibrillation with [id number] score of 6 on A/C with DOAC's /Eliquis, currently on hold related to the above noted presentation 5. History of CVA/TIA 6. HTN 7. Hypercholesterolemia 8. 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 History of recurrent diverticular bleed 10. CKD with Hypokalemia 12. History of hematuria 13. History of CLL with anemia and thrombocytopenia 14. History of non Hodgkin's lymphoma PLAN: 1. Eliquis to be withheld at this point pending resolution of the above noted presentation, skilled nursing A/C is recommended considering the above noted co- morbidities unless it is absolutely contraindicated, alternative would be JEANETTE closure devise/Watchman device 2. Resume Metoprolol 3. Hold Lasix and continue monitoring of renal function, K correction 4. Continue Lipitor 5. Transfuse to maintain Hg equal or > 8.0 6. There are no absolute contraindications in proceeding with planned GI procedure considering that there is no clinical evidence of ACS and/or de- compensated CHF and/or malignant ventricular arrhythmia Bouchra Lu M.D.
--- NOTE | 2018-06-22 11:52 | PN ---
Progress Note, Physician Chief Complaint: AWAKE ALERT BOWEL PREP STARTED IN CHAIR NO DISTRESS - Current Medication List Current Medications: Active Medications Albuterol Sulfate (Ventolin 0.083% Nebulizer Soln -) 1 amp NEB Q6H PRN PRN Reason: SHORT OF BREATH/WHEEZING Allopurinol (Zyloprim -) 100 mg PO DAILY [facility] Last Admin: 06/22/18 09:46 Dose: 100 mg Amino Acids (Prosource No Carb Liquid Pkt) 30 ml PO BID@0800,1730 [facility] Last Admin: 06/22/18 08:35 Dose: 30 ml Atorvastatin Calcium (Lipitor -) 20 mg PO HS [facility] Last Admin: 06/21/18 22:13 Dose: 20 mg Potassium Chloride 10 meq/ (Sodium Chloride) 105 mls @ 100 mls/hr IVPB Q60M [facility] Stop: 06/22/18 11:59 Last Admin: 06/22/18 11:37 Dose: 100 mls/hr Sodium Chloride (Normal Saline -) 1,000 mls @ 60 mls/hr IV ASDIR [facility] Last Admin: 06/22/18 10:42 Dose: 60 mls/hr Melatonin (Melatonin) 5 mg PO HS PRN PRN Reason: INSOMNIA Last Admin: 06/21/18 23:12 Dose: 5 mg Metoprolol Tartrate (Lopressor -) 25 mg PO BID [facility] Non-Formulary Medication (Ibrutinib [Imbruvica]) 140 mg PO DAILY [facility] Pantoprazole Sodium (Protonix Iv) 40 mg IVPUSH BID [facility] Last Admin: 06/22/18 09:46 Dose: 40 mg - Objective Vital Signs: Vital Signs Temperature 97.8 F 06/22/18 08:44 Pulse Rate 74 06/22/18 08:44 Respiratory Rate 20 06/22/18 08:44 Blood Pressure 121/60 06/22/18 08:44 O2 Sat by Pulse Oximetry (%) 99 06/21/18 22:00 Constitutional: Yes: Mild Distress Eyes: Yes: WNL HENT: Yes: WNL Neck: Yes: WNL Cardiovascular: Yes: Pulse Irregular Respiratory: Yes: WNL Gastrointestinal: Yes: WNL Genitourinary: Yes: WNL Musculoskeletal: Yes: Muscle Weakness Extremities: Yes: WNL Edema: No Peripheral Pulses WNL: Yes Integumentary: Yes: WNL Wound/Incision: Yes: Clean/Dry Neurological: Yes: Pre-Existing Deficit ...Motor Strength: LLE, RLE Psychiatric: Yes: WNL Labs: CBC, BMP 06/22/18 06:10 06/22/18 06:10 INR, PTT INR 1.12 (0.83-1.09) H 06/21/18 10:46 Problem List - Problems (1) Acute kidney injury Code(s): N17.9 - ACUTE KIDNEY FAILURE, UNSPECIFIED (2) Afib Code(s): I48.91 - UNSPECIFIED ATRIAL FIBRILLATION Qualifiers: Qualified Code(s): I48.2 - Chronic atrial fibrillation (3) Anemia Code(s): D64.9 - ANEMIA, UNSPECIFIED Qualifiers: Qualified Code(s): D64.89 - Other specified anemias (4) GIB (gastrointestinal bleeding) Code(s): K92.2 - GASTROINTESTINAL HEMORRHAGE, UNSPECIFIED (5) Abdominal pain Code(s): R10.9 - UNSPECIFIED ABDOMINAL PAIN (6) CLL (chronic lymphocytic leukemia) Code(s): C91.10 - CHRONIC LYMPHOCYTIC LEUK OF B-CELL TYPE NOT ACHIEVE REMIS Assessment/Plan SCHEDULED FOR COLONOSCIOPY TOMORROW KCL REPLETED REPEAT BMP TODAY MONITOR LEVELS OOB WITH ASSISTANCE OFF AC
[2018-06-22] MEDS: METOPROLOL TARTRATE 25 MG TABLET (FP) PO SCH ×2 (12:14→21:21)
[2018-06-22 17:22] LABS: ANION GAP 9 (8-16); BLOOD UREA NITROGEN 74 mg/dL (7-18); CALCIUM 7.5 mg/dL (8.5-10.1); CHLORIDE 108 mmol/L (98-107); CO2 30 mmol/L (21-32); CREATININE 2.6 mg/dL (0.7-1.3); GLUCOSE,RANDOM 84 mg/dL (74-106); POTASSIUM 3.8 mmol/L (3.5-5.1); SODIUM 147 mmol/L (136-145)
[2018-06-22 21:12] LABS: URINE APPEARANCE CLEAR; URINE BILIRUBIN NEGATIVE (<2.0 mg/dL); URINE COLOR LTYELLOW; URINE GLUCOSE (UA) NEGATIVE (NEGATIVE); URINE KETONE NEGATIVE (NEGATIVE); URINE LEUK ESTERASE NEGATIVE (NEGATIVE); URINE NITRITE NEGATIVE (NEGATIVE); URINE PROTEIN NEGATIVE (NEGATIVE); URINE UROBILINOGEN NEGATIVE mg/dL (0.2-1.0)
[2018-06-22 21:19] LABS: URINE BACTERIA MODERATE /hpf (NONE SEEN); URINE HYALINE CAST 3 /lpf; URINE MUCUS RARE
[2018-06-22] MEDS: MELATONIN 5 MG TABLETS PO PRN (21:21)
[2018-06-22] MEDS: ATORVASTATIN CA 20 MG TABLET (FP) PO SCH (21:21)
[2018-06-23 06:43] LABS: BASO % 0.2 % (0-2.0); EOS % 0.1 % (0-4.5); HEMATOCRIT 25.6 % (35.4-49); HEMOGLOBIN 8.9 GM/dL (11.7-16.9); LYMPH % 49.5 % (8-40); MCH 31.1 pg (25.7-33.7); MCHC 34.7 g/dl (32.0-35.9); MEAN CELL VOLUME 89.7 fl (80-96); MEAN PLT VOLUME 9.9 fl (7.5-11.1); MONO % 7.1 % (3.8-10.2); NEUT % 43.1 % (42.8-82.8); PLATELET COUNT 111 K/MM3 (134-434); RBC 2.86 M/mm3 (4.00-5.60); RDW 17.5 % (11.9-15.9); WHITE BLOOD COUNT 8.3 K/mm3 (4.0-10.0)
[2018-06-23 07:05] LABS: ANION GAP 7 (8-16); BILIRUBIN,TOTAL 0.8 mg/dL (0.2-1.0); BLOOD UREA NITROGEN 66 mg/dL (7-18); CALCIUM 7.5 mg/dL (8.5-10.1); CHLORIDE 108 mmol/L (98-107); CO2 30 mmol/L (21-32); CREATININE 2.2 mg/dL (0.7-1.3); GLUCOSE,RANDOM 78 mg/dL (74-106); MAGNESIUM 2.1 mg/dL (1.8-2.4); PHOSPHOROUS 3.7 mg/dL (2.5-4.9); POTASSIUM 3.3 mmol/L (3.5-5.1); SGOT/AST 19 U/L (15-37); SGPT/ALT 22 U/L (12-78); SODIUM 145 mmol/L (136-145)
[2018-06-23 07:06] LABS: ALK PHOS 63 U/L (45-117); TOT PROT 4.9 g/dl (6.4-8.2)
[2018-06-23 07:12] LABS: URIC ACID 14.3 mg/dL (2.6-7.2)
[2018-06-23] MEDS ORDERED: LIDOCAINE HCL 2% (20ML MULTI-DOSE VIAL) NR ONE (08:54)
[2018-06-23] MEDS ORDERED: PROPOFOL 20 ML ONE ×2 (08:54)
[2018-06-23] MEDS ORDERED: ETOMIDATE 20 MG/10 ML AMPUL IVPUSH ONE ×2 (08:54→08:56)
[2018-06-23] MEDS: METOPROLOL TARTRATE 25 MG TABLET (FP) PO SCH ×4 (09:32→21:11)
[2018-06-23] MEDS: AMINO ACIDS/PROTEIN HYDROLYS 30 ML LIQUID.PKT PO SCH ×2 (09:32→17:48)
[2018-06-23] MEDS: ALLOPURINOL 100 MG TABLET (FP) PO SCH ×2 (09:33→14:39)
[2018-06-23] MEDS: PANTOPRAZOLE SODIUM 40 MG VIAL IVPUSH SCH ×2 (09:41→21:12)
[2018-06-23] MEDS: SODIUM CHLORIDE 1,000 ML IV SCH (09:42)
--- NOTE | 2018-06-23 10:06 | PN ---
Progress Note, Physician History of Present Illness: Hgb stable post-transfusion denies any chest pain or dyspnea, melena or hematochezia. - Current Medication List Current Medications: Active Medications Albuterol Sulfate (Ventolin 0.083% Nebulizer Soln -) 1 amp NEB Q6H PRN PRN Reason: SHORT OF BREATH/WHEEZING Allopurinol (Zyloprim -) 100 mg PO DAILY [facility] Last Admin: 06/23/18 09:33 Dose: Not Given Amino Acids (Prosource No Carb Liquid Pkt) 30 ml PO BID@0800,1730 [facility] Last Admin: 06/23/18 09:32 Dose: Not Given Atorvastatin Calcium (Lipitor -) 20 mg PO HS [facility] Last Admin: 06/22/18 21:21 Dose: 20 mg Sodium Chloride (Normal Saline -) 1,000 mls @ 60 mls/hr IV ASDIR [facility] Last Admin: 06/23/18 09:42 Dose: 60 mls/hr Melatonin (Melatonin) 5 mg PO HS PRN PRN Reason: INSOMNIA Last Admin: 06/22/18 21:21 Dose: 5 mg Metoprolol Tartrate (Lopressor -) 25 mg PO BID [facility] Last Admin: 06/23/18 09:32 Dose: Not Given Non-Formulary Medication (Ibrutinib [Imbruvica]) 140 mg PO DAILY [facility] Pantoprazole Sodium (Protonix Iv) 40 mg IVPUSH BID [facility] Last Admin: 06/23/18 09:41 Dose: 40 mg - Objective Vital Signs: Vital Signs Temperature 98 F 06/23/18 05:15 Pulse Rate 79 06/23/18 05:15 Respiratory Rate 17 06/23/18 05:15 Blood Pressure 117/58 06/23/18 05:15 O2 Sat by Pulse Oximetry (%) 95 06/22/18 21:00 Constitutional: Yes: No Distress, Calm Neck: Yes: Supple Cardiovascular: Yes: Pulse Irregular Respiratory: Yes: Regular, CTA Bilaterally Gastrointestinal: Yes: Soft, Hypoactive Bowel Sounds Edema: No Labs: CBC, BMP 06/23/18 05:30 06/23/18 05:30 INR, PTT INR 1.12 (0.83-1.09) H 06/21/18 10:46 - ....Imaging EKG: Report Reviewed (Tele: afib) Problem List - Problems (1) Acute kidney injury Code(s): N17.9 - ACUTE KIDNEY FAILURE, UNSPECIFIED (2) Afib Code(s): I48.91 - UNSPECIFIED ATRIAL FIBRILLATION Qualifiers: Atrial fibrillation type: chronic Qualified Code(s): I48.2 - Chronic atrial fibrillation (3) Anemia Code(s): D64.9 - ANEMIA, UNSPECIFIED Qualifiers: Anemia type: other cause Other causes of anemia: other cause, not classified Qualified Code(s): D64.89 - Other specified anemias (4) GIB (gastrointestinal bleeding) Code(s): K92.2 - GASTROINTESTINAL HEMORRHAGE, UNSPECIFIED Qualifiers: GI bleed type/associated pathology: unspecified gastrointestinal hemorrhage type Qualified Code(s): K92.2 - Gastrointestinal hemorrhage, unspecified (5) CLL (chronic lymphocytic leukemia) Code(s): C91.10 - CHRONIC LYMPHOCYTIC LEUK OF B-CELL TYPE NOT ACHIEVE REMIS (6) CVA (cerebrovascular accident) Code(s): I63.9 - CEREBRAL INFARCTION, UNSPECIFIED Qualifiers: CVA mechanism: embolism Precerebral and cerebral artery: middle cerebral artery, left (7) Chronic anticoagulation Code(s): Z79.01 - BRASS RECLAIMER (CURRENT) USE OF ANTICOAGULANTS (8) Chronic lymphocytic leukemia (CLL), B-cell Code(s): C91.10 - CHRONIC LYMPHOCYTIC LEUK OF B-CELL TYPE NOT ACHIEVE REMIS Qualifiers: Leukemia Active/Remission status: in remission Qualified Code(s): C91.11 - Chronic lymphocytic leukemia of B-cell type in remission (9) Hyperlipidemia Code(s): E78.5 - HYPERLIPIDEMIA, UNSPECIFIED Qualifiers: Hyperlipidemia type: pure hypercholesterolemia Qualified Code(s): E78.00 - Pure hypercholesterolemia, unspecified; E78.0 - Pure hypercholesterolemia Assessment/Plan 1. Progressive weakness related to profound anemia, gastrointestinal bleed is a suspect source to be determined 2. CAD angina pectoris, stable 3. Diastolic LV dysfunction with chronic class 0-I NYHA classification LV failure, compensated/euvolemic 4. Persistent atrial fibrillation with [id number] score of 6 on A/C with DOAC's /Eliquis, currently on hold related to the above noted presentation 5. History of CVA/TIA 6. HTN 7. Hypercholesterolemia 8. 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 History of recurrent diverticular bleed 10. Acute on CKD with hyperuricemia and hypokalemia 11. History of hematuria 12. History of CLL with anemia and thrombocytopenia 13. History of non Hodgkin's lymphoma under good control with imbruvica PLAN: 1. Eliquis to be withheld at this point pending resolution of the above noted presentation, usp A/C is recommended considering the above noted co- morbidities unless it is absolutely contraindicated, alternative would be JEANETTE closure devise/Watchman device 2. F/u EGD + Colonoscopy results this AM, according to heme, would recommend resuming Imbruvica after his colonoscopy. Ibrutinib can exacerbate GI bleeding hence can be restarted once GI bleeding has resolved 3. Resume Metoprolol 25 bid 4. Hold Lasix and continue monitoring of renal function, K correction, judicious IVF 5. Continue Lipitor 20 qhs 6. Transfuse to maintain Hg equal or > 8.0 7. There are no absolute contraindications in proceeding with planned GI procedure considering that there is no clinical evidence of ACS and/or de- compensated CHF and/or malignant ventricular arrhythmia
[2018-06-23] MEDS ORDERED: KCL 10 MEQ IVPB 10 MEQ/100 ML INFUS.BAG IVPB SCH (12:15)
[2018-06-23] MEDS ORDERED: POTASSIUM CHLORIDE 20 MEQ in SODIUM CHLORIDE 250 ML IVPB ONE (13:00)
[2018-06-23] MEDS ORDERED: GLYCOPYRROLATE 0.2 MG/1 ML VIAL ONE ×2 (13:01)
[2018-06-23] MEDS ORDERED: PT OWN MED DRAWER 7, Y5N ONE ×2 (13:05→18:43)
--- NOTE | 2018-06-23 13:55 | PN ---
Progress Note (short form) - Note Progress Note: GI Procedures NOte: Please see scanned EGD and colonoscopy reports. Shanthiterry duarte to have a resolving right colon ischemic colitis, angiodysplasias of the stomach and colon, severe diverticular disease. Will advance diet as tolerated.
--- NOTE | 2018-06-23 16:23 | PN ---
Progress Note, Physician Chief Complaint: GI bleeding Severe Anemia History of Present Illness: NAD resolving right colon ischemic colitis, angiodysplasias of the stomach and colon , severe diverticular disease. H/H stable at this time - Current Medication List Current Medications: Active Medications Albuterol Sulfate (Ventolin 0.083% Nebulizer Soln -) 1 amp NEB Q6H PRN PRN Reason: SHORT OF BREATH/WHEEZING Allopurinol (Zyloprim -) 100 mg PO DAILY [facility] Last Admin: 06/23/18 14:39 Dose: 100 mg Amino Acids (Prosource No Carb Liquid Pkt) 30 ml PO BID@0800,1730 [facility] Last Admin: 06/23/18 09:32 Dose: Not Given Atorvastatin Calcium (Lipitor -) 20 mg PO HS [facility] Last Admin: 06/22/18 21:21 Dose: 20 mg Sodium Chloride (Normal Saline -) 1,000 mls @ 60 mls/hr IV ASDIR [facility] Last Admin: 06/23/18 09:42 Dose: 60 mls/hr Melatonin (Melatonin) 5 mg PO HS PRN PRN Reason: INSOMNIA Last Admin: 06/22/18 21:21 Dose: 5 mg Metoprolol Tartrate (Lopressor -) 25 mg PO BID [facility] Last Admin: 06/23/18 10:31 Dose: 25 mg Non-Formulary Medication (Ibrutinib [Imbruvica]) 140 mg PO DAILY [facility] Pantoprazole Sodium (Protonix Iv) 40 mg IVPUSH BID [facility] Last Admin: 06/23/18 09:41 Dose: 40 mg - Objective Vital Signs: Vital Signs Temperature 97.9 F 06/23/18 14:00 Pulse Rate 110 H 06/23/18 14:00 Respiratory Rate 20 06/23/18 14:00 Blood Pressure 114/73 06/23/18 14:00 O2 Sat by Pulse Oximetry (%) 100 06/23/18 13:42 Constitutional: Yes: Well Nourished, No Distress, Calm Respiratory: Yes: Regular Gastrointestinal: Yes: Normal Bowel Sounds, Soft Neurological: Yes: Alert, Oriented Psychiatric: Yes: Alert, Oriented Labs: CBC, BMP 06/23/18 05:30 06/23/18 05:30 INR, PTT INR 1.12 (0.83-1.09) H 06/21/18 10:46 Problem List - Problems (1) Anemia Assessment/Plan: -Guaiac positive -went for EGD and colonoscopy-resolving right colon ischemic colitis, angiodysplasias of the stomach and colon, severe diverticular disease. -Iron % low, would give venofer -PPI -monitor H/H- normal transfusion parameters. Code(s): D64.9 - ANEMIA, UNSPECIFIED Qualifiers: Anemia type: other cause Other causes of anemia: other cause, not classified Qualified Code(s): D64.89 - Other specified anemias (2) GIB (gastrointestinal bleeding) Assessment/Plan: -GI on board -EGD & Colonoscopy-resolving right colon ischemic colitis, angiodysplasias of the stomach and colon, severe diverticular disease. -PPI -Monitor H/H -normal transfusion parameters Code(s): K92.2 - GASTROINTESTINAL HEMORRHAGE, UNSPECIFIED Qualifiers: GI bleed type/associated pathology: unspecified gastrointestinal hemorrhage type Qualified Code(s): K92.2 - Gastrointestinal hemorrhage, unspecified (3) Chronic kidney disease (CKD) Assessment/Plan: -Nephrology on board -Cr improving -Gentle IVF -monitor trend Code(s): N18.9 - CHRONIC KIDNEY DISEASE, UNSPECIFIED (4) Hypokalemia Assessment/Plan: -KCl 20 IV given today -monitor labs in AM Code(s): E87.6 - HYPOKALEMIA (5) Afib Assessment/Plan: -AC contraindicated at this time -Cardiology on board -Tele monitoring Code(s): I48.91 - UNSPECIFIED ATRIAL FIBRILLATION Qualifiers: Atrial fibrillation type: chronic Qualified Code(s): I48.2 - Chronic atrial fibrillation Assessment/Plan see problem list SCD's Physical therapy Dispo: Continue tele monitoring, advance diet as tolerated.
[2018-06-23] MEDS ORDERED: IRON SUCROSE INJECTION 300 MG in SODIUM CHLORIDE 250 ML IVPB ONE (18:00)
--- NOTE | 2018-06-23 18:08 | PN ---
Progress Note (short form) - Note Progress Note: Patient seen and examined Reultss of endoscopy noted Ischemic colits, angiodysplasia of stomach, and diverticular disease' Last Vital Signs Temp Pulse Resp BP Pulse Ox 97.9 F 110 H 20 114/73 100 06/23/18 14:00 06/23/18 14:00 06/23/18 14:00 06/23/18 14:00 06/23/18 13:42 Lungs clear Cor-atrial fib Soft abdomen Ext- neg- CBC, BMP 06/23/18 05:30 06/23/18 05:30 Current Medications Generic Name Dose Route Start Last Admin Trade Name Freq PRN Reason Stop Dose Admin Albuterol Sulfate 1 amp 06/20/18 23:56 Ventolin 0.083% Nebulizer Soln - NEB Q6H PRN SHORT OF BREATH/WHEEZING Allopurinol 100 mg 06/21/18 15:15 06/23/18 14:39 Zyloprim - PO 100 mg DAILY [facility] Administration Amino Acids 30 ml 06/21/18 17:30 06/23/18 17:48 Prosource No Carb Liquid Pkt PO 30 ml BID@0800,1730 [facility] Administration Atorvastatin Calcium 20 mg 06/21/18 22:00 06/22/18 21:21 Lipitor - PO 20 mg HS [facility] Administration Sodium Chloride 1,000 mls @ 60 mls/hr 06/22/18 10:30 06/23/18 09:42 Normal Saline - IV 60 mls/hr ASDIR [facility] Administration Iron Sucrose 300 mg/ Sodium 250 mls @ 250 mls/hr 06/23/18 16:53 Chloride IVPB 06/23/18 17:52 DAILY ONE Iron Sucrose 300 mg/ Sodium 265 mls @ 176.667 mls/hr 06/23/18 18:00 Chloride IVPB 06/23/18 19:29 ONCE ONE Melatonin 5 mg 06/21/18 22:56 06/22/18 21:21 Melatonin PO 5 mg HS PRN Administration INSOMNIA Metoprolol Tartrate 25 mg 06/22/18 11:30 06/23/18 10:31 Lopressor - PO 25 mg BID [facility] Administration Non-Formulary Medication 140 mg 06/21/18 10:00 Ibrutinib [Imbruvica] PO DAILY [facility] Pantoprazole Sodium 40 mg 06/21/18 10:00 06/23/18 09:41 Protonix Iv IVPUSH 40 mg BID [facility] Administration Impression : S/P GI bleed Ischemic colitis, angiodysplasia of stomach and diverticular disease Atrial fib A/C In view of bleeding, would continue to hold eliquis and Imbruvica. The latter can be associated with a bleeding diathesis. Need to check with GI when it is OK to resume. Patient is followed by Dr. Reyes at [facility] who can follow up.
[2018-06-23] MEDS: ATORVASTATIN CA 20 MG TABLET (FP) PO SCH (21:11)
[2018-06-23] MEDS: MELATONIN 5 MG TABLETS PO PRN (21:12)
[2018-06-24 06:14] LABS: BASO % 0.2 % (0-2.0); HEMATOCRIT 29.7 % (35.4-49); HEMOGLOBIN 9.8 GM/dL (11.7-16.9); LYMPH % 19.4 % (8-40); MCH 30.4 pg (25.7-33.7); MCHC 33.1 g/dl (32.0-35.9); MEAN CELL VOLUME 91.9 fl (80-96); MEAN PLT VOLUME 10.1 fl (7.5-11.1); MONO % 3.7 % (3.8-10.2); NEUT % 76.7 % (42.8-82.8); PLATELET COUNT 123 K/MM3 (134-434); RBC 3.23 M/mm3 (4.00-5.60); RDW 18.9 % (11.9-15.9); WHITE BLOOD COUNT 14.3 K/mm3 (4.0-10.0)
[2018-06-24 06:49] LABS: ALBUMIN 2.1 g/dl (3.4-5.0); ANION GAP 5 (8-16); BILIRUBIN,TOTAL 0.9 mg/dL (0.2-1.0); BLOOD UREA NITROGEN 51 mg/dL (7-18); CALCIUM 7.8 mg/dL (8.5-10.1); CHLORIDE 110 mmol/L (98-107); CO2 30 mmol/L (21-32); CREATININE 1.8 mg/dL (0.7-1.3); GLUCOSE,RANDOM 89 mg/dL (74-106); POTASSIUM 3.6 mmol/L (3.5-5.1); SGOT/AST 21 U/L (15-37); SGPT/ALT 23 U/L (12-78); SODIUM 145 mmol/L (136-145); TOT PROT 5.1 g/dl (6.4-8.2)
[2018-06-24 07:14] LABS: ALK PHOS 64 U/L (45-117)
[2018-06-24] MEDS: AMINO ACIDS/PROTEIN HYDROLYS 30 ML LIQUID.PKT PO SCH ×2 (08:33→17:30)
--- NOTE | 2018-06-24 08:40 | PN ---
Progress Note (short form) - Note Progress Note: Chief Complaint: Events noted, notes reviewed, resting in bed, denies any chest pain or dyspnea, complaining of right lower quadrant vague discomfort, peripheral edema persists but improved History of Present Illness: Seen and examined on telemetry. Events noted, notes reviewed, resting in bed, denies any chest pain or dyspnea, complaining of right lower quadrant vague discomfort, peripheral edema persists but improved Results of EGD and colonoscopy noted As outlined in prior notes ideally A/C therapy with Eliquis to be continued indefinitely related to patient's [id number] score of 6, unless it is absolutely contraindicated (re-initiation to be deferred pending resolution of current presentation) Medications: Current Medications Albuterol Sulfate (Ventolin 0.083% Nebulizer Soln -) 1 amp NEB Q6H PRN PRN Reason: SHORT OF BREATH/WHEEZING Allopurinol (Zyloprim -) 100 mg PO DAILY [facility] Last Admin: 06/23/18 14:39 Dose: 100 mg Amino Acids (Prosource No Carb Liquid Pkt) 30 ml PO BID@0800,1730 [facility] Last Admin: 06/24/18 08:33 Dose: 30 ml Atorvastatin Calcium (Lipitor -) 20 mg PO HS [facility] Last Admin: 06/23/18 21:11 Dose: 20 mg Sodium Chloride (Normal Saline -) 1,000 mls @ 60 mls/hr IV ASDIR [facility] Last Admin: 06/23/18 09:42 Dose: 60 mls/hr Iron Sucrose 300 mg/ Sodium (Chloride) 250 mls @ 250 mls/hr IVPB DAILY [facility] Stop: 06/25/18 10:59 Melatonin (Melatonin) 5 mg PO HS PRN PRN Reason: INSOMNIA Last Admin: 06/23/18 21:12 Dose: 5 mg Metoprolol Tartrate (Lopressor -) 25 mg PO BID [facility] Last Admin: 06/23/18 21:11 Dose: 25 mg Non-Formulary Medication (Ibrutinib [Imbruvica]) 140 mg PO DAILY [facility] Pantoprazole Sodium (Protonix Iv) 40 mg IVPUSH BID [facility] Last Admin: 06/23/18 21:12 Dose: 40 mg Review of Systems - Review of Systems Constitutional: no symptoms reported Respiratory: denies Cough or Sputum Production Cardiovascular: as noted above Gastrointestinal: denies Nausea, Vomiting, Diarrhea, Constipation or Abdominal Pain Genitourinary: no symptoms reported Musculoskeletal: no symptoms reported Endocrine: no symptoms reported Vital Signs: Last Vital Signs Temp Pulse Resp BP Pulse Ox 97.5 F L 90 18 102/60 93 L 06/24/18 06:00 06/24/18 06:00 06/24/18 06:00 06/24/18 06:00 06/23/18 22:00 Intake & Output 06/21/18 06/22/18 06/23/18 06/24/18 23:59 23:59 23:59 23:59 Intake Total 690 980 830 350 Output Total 325 1150 450 150 Balance 365 -170 380 200 Constitutional: No Distress, Calm Neck: Supple Negative JVD No Bruit Respiratory: Diminished Breath Sounds at the Bases Cardiovascular: S1 S2 Irregularly Irregular Grade 2/6 SM Gastrointestinal: Soft Benign Normal Bowel Sounds Ext: 1+ Edema Labs: CBC, BMP 06/24/18 05:30 06/24/18 05:30 Intake & Output 06/21/18 06/22/18 06/23/18 06/24/18 23:59 23:59 23:59 23:59 Intake Total 690 980 830 350 Output Total 325 1150 450 150 Balance 365 -170 380 200 Hepatic Panel Total Bilirubin 0.9 mg/dL (0.2-1.0) 06/24/18 05:30 AST 21 U/L (15-37) 06/24/18 05:30 ALT 23 U/L (12-78) 06/24/18 05:30 Alkaline Phosphatase 64 U/L (45-117) 06/24/18 05:30 Albumin 2.1 g/dl (3.4-5.0) L 06/24/18 05:30 Assessment/Plan ASSESSMENT: 1. Progressive weakness related to profound anemia, gastrointestinal bleed related to ischemic colitis, angiodysplasias of the stomach and colon 2. CAD angina pectoris, stable 3. Diastolic LV dysfunction with chronic class 0-I NYHA classification LV failure, compensated/euvolemic 4. Persistent atrial fibrillation with periods of rapid ventricular response [id number] score of 6 on A/C with DOAC's/Eliquis, currently on hold related to the above noted presentation 5. History of CVA/TIA 6. HTN 7. Hypercholesterolemia 8. 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 History of recurrent diverticular bleed 10. CKD with Hypokalemia 12. History of hematuria 13. History of CLL with anemia and thrombocytopenia 14. History of non Hodgkin's lymphoma PLAN: 1. 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 Resume Metoprolol 3. Hold Lasix and continue monitoring of renal function, K correction 4. Continue Lipitor 5. Transfuse to maintain Hg equal or > 8.0 6. There are no absolute contraindications in proceeding with planned GI procedure considering that there is no clinical evidence of ACS and/or de- compensated CHF and/or malignant ventricular arrhythmia Bouchra Lu M.D.
[2018-06-24] MEDS: METOPROLOL TARTRATE 25 MG TABLET (FP) PO SCH ×2 (09:47→22:44)
[2018-06-24] MEDS: IRON SUCROSE INJECTION 300 MG in SODIUM CHLORIDE 235 ML IVPB SCH (09:48)
[2018-06-24] MEDS: ALLOPURINOL 100 MG TABLET (FP) PO SCH (09:48)
[2018-06-24] MEDS: PANTOPRAZOLE SODIUM 40 MG VIAL IVPUSH SCH ×2 (10:00→22:44)
--- NOTE | 2018-06-24 11:22 | PN ---
Progress Note, Physician Chief Complaint: GI bleeding Severe Anemia History of Present Illness: NAD resolving right colon ischemic colitis, angiodysplasias of the stomach and colon , severe diverticular disease. H/H stable at this time - Current Medication List Current Medications: Active Medications Albuterol Sulfate (Ventolin 0.083% Nebulizer Soln -) 1 amp NEB Q6H PRN PRN Reason: SHORT OF BREATH/WHEEZING Allopurinol (Zyloprim -) 100 mg PO DAILY [facility] Last Admin: 06/24/18 09:48 Dose: 100 mg Amino Acids (Prosource No Carb Liquid Pkt) 30 ml PO BID@0800,1730 [facility] Last Admin: 06/24/18 08:33 Dose: 30 ml Atorvastatin Calcium (Lipitor -) 20 mg PO HS [facility] Last Admin: 06/23/18 21:11 Dose: 20 mg Sodium Chloride (Normal Saline -) 1,000 mls @ 60 mls/hr IV ASDIR [facility] Last Admin: 06/23/18 09:42 Dose: 60 mls/hr Iron Sucrose 300 mg/ Sodium (Chloride) 250 mls @ 250 mls/hr IVPB DAILY [facility] Stop: 06/25/18 10:59 Last Admin: 06/24/18 09:48 Dose: 250 mls/hr Melatonin (Melatonin) 5 mg PO HS PRN PRN Reason: INSOMNIA Last Admin: 06/23/18 21:12 Dose: 5 mg Metoprolol Tartrate (Lopressor -) 25 mg PO BID [facility] Last Admin: 06/24/18 09:47 Dose: 25 mg Non-Formulary Medication (Ibrutinib [Imbruvica]) 140 mg PO DAILY [facility] Pantoprazole Sodium (Protonix Iv) 40 mg IVPUSH BID [facility] Last Admin: 06/24/18 10:00 Dose: 40 mg - Objective Vital Signs: Vital Signs Temperature 98.6 F 06/24/18 10:00 Pulse Rate 97 H 06/24/18 10:00 Respiratory Rate 18 06/24/18 10:00 Blood Pressure 97/60 06/24/18 10:00 O2 Sat by Pulse Oximetry (%) 95 06/24/18 09:00 Labs: CBC, BMP 06/24/18 05:30 06/24/18 05:30 INR, PTT INR 1.12 (0.83-1.09) H 06/21/18 10:46 Problem List - Problems (1) Anemia Assessment/Plan: -Guaiac positive -EGD and colonoscopy-resolving right colon ischemic colitis, angiodysplasias of the stomach and colon, severe diverticular disease. -Iron % low, would give venofer -PPI -monitor H/H- normal transfusion parameters. Code(s): D64.9 - ANEMIA, UNSPECIFIED Qualifiers: Anemia type: other cause Other causes of anemia: antineoplastic chemotherapy Qualified Code(s): D64.81 - Anemia due to antineoplastic chemotherapy; T45.1X5A - Adverse effect of antineoplastic and immunosuppressive drugs, initial encounter (2) GIB (gastrointestinal bleeding) Assessment/Plan: -GI on board -EGD & Colonoscopy-resolving right colon ischemic colitis, angiodysplasias of the stomach and colon, severe diverticular disease. -Pantoprazole 40 mg IVPB daily -Monitor H/H -normal transfusion parameters Code(s): K92.2 - GASTROINTESTINAL HEMORRHAGE, UNSPECIFIED Qualifiers: GI bleed type/associated pathology: unspecified gastrointestinal hemorrhage type Qualified Code(s): K92.2 - Gastrointestinal hemorrhage, unspecified (3) Chronic kidney disease (CKD) Assessment/Plan: -Nephrology on board -Cr improving -Gentle IVF -U/S moderate left hydronephrosis without obstruction, however, is not effecting renal function -monitor trend Code(s): N18.9 - CHRONIC KIDNEY DISEASE, UNSPECIFIED Qualifiers: Chronic kidney disease stage: stage 3 (moderate) Qualified Code(s): N18.3 - Chronic kidney disease, stage 3 (moderate) (4) Hypokalemia Assessment/Plan: -KCl 20 IV given yesterday -K+ normalized today -monitor labs in AM Code(s): E87.6 - HYPOKALEMIA (5) Afib Assessment/Plan: -AC contraindicated at this time due to GI bleed -Cardiology on board -Tele monitoring Code(s): I48.91 - UNSPECIFIED ATRIAL FIBRILLATION Qualifiers: Atrial fibrillation type: chronic Qualified Code(s): I48.2 - Chronic atrial fibrillation (6) Acute ischemic colitis Assessment/Plan: -gentle IVF to ensure bowel hydration -Bowel rest -tolerating clear liquid diet, would continue -CT scan this AM showed no perforation but lot of post EGD, Colonoscopy gas -Simethicone to help relieve gas pains -Seen by surgery and GI Code(s): K55.039 - ACUTE ISCHEMIA OF LARGE INTESTINE, EXTENT UNSPECIFIED Assessment/Plan see problem list Pharmacological DVT prophylaxis contraindicated SCD' Physical therapy Dispo: continue tele monitoring
--- NOTE | 2018-06-24 12:45 | PATH ---
Surgical Pathology Report Patient Name: DANIELLE CASTILLO Med. Rec. #: [id number] /Age/Gender: 1930 (Age: 87) / M Account: [id number] Location: 4 W TELEMETRY U Taken: 06/23/2018 Received: 06/23/2018 Reported: 06/24/2018 Physicians: Darek Stacy M.D. Specimen(s) Received A: BX 2ND PORTION DUODENUM AND BULB B: BX ANTRUM Clinical History Anemia, GI bleeding, acute kidney injury Postoperative diagnosis: Gastric ulcer, diverticulosis, ischemic colitis right colon and AVM Final Diagnosis A. DUODENUM, SECOND PORTION AND DUODENAL BULB, BIOPSY: DUODENAL MUCOSA WITH MODERATE ACUTE AND CHRONIC DUODENITIS. B. STOMACH, ANTRUM, BIOPSY: GASTRIC ANTRAL MUCOSA WITH MODERATE CHRONIC ACTIVE GASTRITIS AND INTESTINAL METAPLASIA. IMMUNOHISTOCHEMICAL STAIN FOR H. PYLORI IS NEGATIVE. Electronically Signed Jasmin Crawford M.D. Gross Description A. Received in formalin, labeled "biopsy second portion of duodenum and bulb" are 3 jose, irregular portions of soft tissue ranging from 0.3-0.4 cm. in greatest dimension. The specimens are submitted in toto in one cassette. B. Received in formalin, labeled "biopsy antrum" are 3 jose, irregular portions of soft tissue ranging from 0.3-0.4 cm. in greatest dimension. The specimens are submitted in toto in one cassette. /06/23/2018 saudi06/23/2018
[2018-06-24] MEDS: SODIUM CHLORIDE 1,000 ML IV SCH (14:00)
[2018-06-24] MEDS ORDERED: SIMETHICONE 40 MG/0.6 ML BOTTLE PO SCH (14:00)
--- NOTE | 2018-06-24 14:03 | CONSULT ---
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 Blank ( emergent, possibly embolic event), HTN, CKD, BLE edema treated with lasix but currently being held, admitted on Saturday with very low Hb (5) and had EGD/ colonoscopy yesterday by GI. He began experiencing right-sided abdominal pain after the scopes, which he describes as mid-lateral, and seemed to get better progressively last evening, though it never fully went away. This morning, it came back, and CT with oral but no IV contrast was done. He has been tolerating liquid diet for several days, including today. Surgery was asked to evaluate. Pt seen and examined in bed, resting comfortably. He states the pain is still there, and points to right mid and lateral abdomen. He admits to mild nausea but no vomiting, no fever but chills on and off, and he is passing gas throughout the day. He thought he had a BM earlier, but said the nurse told him he did not have anything in his diaper. He is afebrile, with BPs ranging from 90s to 110s systolic, irregular HR in 90s. WBC is up today from 8 to 14, Hb stable at 9, platelets relatively low but stable. BUN/Cr improving but still elevated, K 3.6, Mag and Phos last checked normal. Uric acid is very high. CT was reviewed with radiology, showing no free air, oral contrast not yet into colon, severe diverticulosis but no diverticulitis, mild wall thickening of ascending colon, s/p cholecystectomy. - History Source History Provided By: Patient, Medical Record Limitations to Obtaining History: No Limitations - Past Medical History Cardio/Vascular: Yes: AFIB (on Eliquis, currently held), HTN, Other (BLE edema) Pulmonary: Yes: Pneumonia Gastrointestinal: Yes: Diverticulosis, GI Bleed (diverticular bleeding), Other ( HEMORRHOIDS, antral and gastric body erosions, embolic distal ileal ischemia ; right ischemic colitis) Renal/: Yes: Renal Inusuff, BPH, Hematuria, Other (consideration for prostate procedure mentioned by ) Heme/Onc: Yes: Anemia, Cancer (non-Hodgkins lymphoma dx ~5y ago, recently on Imbruvica currently held) Musculoskeletal: Yes: Osteoarthritis Additional Medical History: left inguinal hernia - Past Surgical History Past Surgical History: Yes: Cholecystectomy, Colonoscopy, Upper Endoscopy Additional Surgical History: emergent laparotomy 02/02 with SB resection for ischemic segment (presumed embolic event, Dr. 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 History of Recent Travel: No Home Medications - Allergies Allergies/Adverse Reactions: Allergies Allergy/AdvReac Type Severity Reaction Status Date / Time warfarin sodium Allergy Severe bleeding Verified 06/20/18 14:35 [From Coumadin] - Home Medications Home Medications: Ambulatory Orders Atorvastatin Ca [Lipitor] 20 mg PO HS 12/06/16 Furosemide [Lasix] 80 mg PO DAILY 12/06/16 Melatonin 5 mg PO HS 12/06/16 Albuterol 0.083% Nebulizer Nilam [Ventolin 0.083% Nebulizer Soln -] 1 amp NEB Q6H PRN amp 01/30/18 Apixaban [Eliquis -] 2.5 mg PO BID #60 tablet 01/30/18 Metoprolol Succinate [Toprol XL -] 50 mg PO BID #60 tab.sr.24h 01/30/18 Furosemide [Lasix] 60 mg PO HS 06/20/18 Ibrutinib [Imbruvica] 140 mg PO DAILY 06/20/18 Pantoprazole Sodium [Protonix -] 20 mg PO DAILY 06/20/18 Family Disease History - Family Disease History Family Disease History: Heart Disease: Father (heart attack/stroke at 74), Other : Father, Mother ( 72 of aspiration), Brother (recent stroke in 80s, recovering) Review of Systems - Review of Systems Constitutional: reports: Chills (on/off). denies: Fever, Loss of Appetite Eyes: reports: Other (wears glasses). denies: Recent Change in Vision HENT: denies: Difficult Swallowing, Hearing Loss, Throat Pain Neck: denies: Stiffness, Tenderness Cardiovascular: reports: Edema (BLE edema, improved). denies: Chest Pain, Palpitations Respiratory: denies: Cough, SOB Gastrointestinal: reports: Abdominal Pain (with hpi), Nausea (a little). denies : Constipation, Diarrhea, Vomiting Genitourinary: reports: Hematuria (last month, no more visible), Other ( sometimes difficulty starting stream, other times strong). denies: Burning, Dysuria Musculoskeletal: denies: Back Pain, Joint Pain, Muscle Pain Integumentary: reports: Bruising. denies: Lesions, Rash Neurological: reports: Unsteady Gait (uses cane, has had difficulty walking from swelling in legs and after spending time in bed). denies: Dizziness, Headache Hematology/Lymphatic: reports: Easily Bruised Physical Exam Vital Signs: Vital Signs Temperature 98.6 F 06/24/18 10:00 Pulse Rate 97 H 06/24/18 10:00 Respiratory Rate 18 06/24/18 10:00 Blood Pressure 97/60 06/24/18 10:00 O2 Sat by Pulse Oximetry (%) 95 06/24/18 09:00 Vital Signs Period Temp Pulse Resp BP Sys/Gerardo Pulse Ox Last 24 Hr 97.5 F-98.6 F 90-97 18-18 97-117/60-64 93-95 Constitutional: Yes: No Distress, Calm, Thin Eyes: Yes: Conjunctiva Clear, EOM Intact, Other (glasses). No: Sclera Icterus HENT: Yes: Atraumatic, Normocephalic, Other (poor dentition - usual upper implanted dentures out secondary to breakage; perm lower dentures) Neck: Yes: Supple, Trachea Midline Cardiovascular: Yes: Pulse Irregular (irregularly), Murmur. No: Bradycardia, Tachycardia Respiratory: Yes: Regular, CTA Bilaterally Gastrointestinal: Yes: Soft, Distention (tympanic), Hernia (reducible left inguinal hernia, palpable umbilical defect), Hyperactive Bowel Sounds, Tenderness (right upper and mid-abdomen and laterally, not really RLQ; no jessica/ guarding), Other (healed lower midline scar). No: Tenderness, Epigastrium, Tenderness, Rebound, Vomiting ...Rectal Exam: Yes: Deferred (scopes yesterday) Renal/: No: CVA Tenderness - Left, CVA Tenderness - Right Musculoskeletal: No: Back Pain, Joint Swelling Extremities: No: Cool, Cyanosis Edema: Yes Edema: LLE: 1+ (pitting but wrinkles at ankle), RLE: 1+ (pitting but wrinkles at ankle) Peripheral Pulses WNL: Yes (irregular) Integumentary: Yes: Bruising (multiple scattered ecchymoses). No: Jaundice, Rash Neurological: Yes: Alert, Oriented Psychiatric: Yes: Alert, Oriented Labs: CBC, BMP 06/24/18 05:30 06/24/18 05:30 wbc up a bit today BUN/Cr coming down stable H/H CMP Sodium 145 mmol/L (136-145) 06/24/18 05:30 Potassium 3.6 mmol/L (3.5-5.1) 06/24/18 05:30 Chloride 110 mmol/L (98-107) H 06/24/18 05:30 Carbon Dioxide 30 mmol/L (21-32) 06/24/18 05:30 Anion Gap 5 (8-16) L 06/24/18 05:30 BUN 51 mg/dL (7-18) H 06/24/18 05:30 Creatinine 1.8 mg/dL (0.7-1.3) H 06/24/18 05:30 Creat Clearance w eGFR 35.87 (>60) 06/24/18 05:30 Random Glucose 89 mg/dL (74-106) 06/24/18 05:30 Uric Acid 14.3 mg/dL (2.6-7.2) H* 06/23/18 05:30 Calcium 7.8 mg/dL (8.5-10.1) L 06/24/18 05:30 Phosphorus 3.7 mg/dL (2.5-4.9) 06/23/18 05:30 Magnesium 2.1 mg/dL (1.8-2.4) 06/23/18 05:30 Iron 28 ug/dL (38-169) L 06/21/18 10:46 TIBC 220 ug/dL (250-450) L 06/21/18 10:46 Iron Saturation 13 % (15-55) L 06/21/18 10:46 Total Bilirubin 0.9 mg/dL (0.2-1.0) 06/24/18 05:30 AST 21 U/L (15-37) 06/24/18 05:30 ALT 23 U/L (12-78) 06/24/18 05:30 Alkaline Phosphatase 64 U/L (45-117) 06/24/18 05:30 Total Protein 5.1 g/dl (6.4-8.2) L 06/24/18 05:30 Albumin 2.1 g/dl (3.4-5.0) L 06/24/18 05:30 Vitamin B12 1570 pg/ml (180-914) H 06/24/18 05:30 INR, PTT INR 1.12 (0.83-1.09) H 06/21/18 10:46 Urine Test Results Urine Color Ltyellow 06/22/18 21:00 Urine Appearance Clear 06/22/18 21:00 Urine pH 6.0 (5.0-8.0) 06/22/18 21:00 Ur Specific [place] 1.010 (1.001-1.035) 06/22/18 21:00 Urine Protein Negative (NEGATIVE) 06/22/18 21:00 Urine Glucose (UA) Negative (NEGATIVE) 06/22/18 21:00 Urine Ketones Negative (NEGATIVE) 06/22/18 21:00 Urine Blood 3+ (NEGATIVE) H 06/22/18 21:00 Urine Nitrite Negative (NEGATIVE) 06/22/18 21:00 Urine Bilirubin Negative (<2.0 mg/dL) 06/22/18 21:00 Ur Leukocyte Esterase Negative (NEGATIVE) 06/22/18 21:00 Ur Epithelial Cells Rare /HPF (FEW) 06/21/18 01:15 Urine Bacteria Moderate /hpf (NONE SEEN) 06/22/18 21:00 Urine Mucus Rare 06/22/18 21:00 Pathology on EGD biopsies shows no H. pylori, + duodenitis, + gastritis Imaging - Results Cat Scan: Image Reviewed (images personally reviewed and discussed with Dr. Madison /radiologist - no free air or fluid, contrast to mid-distal SB, severe diverticulosis without diverticulitis, mildly thickened right colon wall, s/p cholecystectomy) Problem List - Problems (1) Abdominal pain Assessment/Plan: right-sided abdominal pain, somewhat crampy, since scopes possibly related to resolving right-sided ischemic colitis most likely residual gas from upper and lower scopes pt passing gas, though no BM yet anticipate loose/liquid BMs over next 1-2 days related to oral contrast administration would expect steady resolution of abdominal discomfort as gas is relieved no evidence of bowel perforation no indication for surgical intervention at this time ok to continue liquids serial exams will follow up in am discussed with Vivien Woods NP Thank you for the opportunity to participate in the care of this patient. Code(s): R10.9 - UNSPECIFIED ABDOMINAL PAIN Qualifiers: Abdominal location: right upper quadrant Qualified Code(s): R10.11 - Right upper quadrant pain (2) Diverticulosis Assessment/Plan: no diverticulitis Code(s): K57.90 - DVRTCLOS OF INTEST, PART UNSP, W/O PERF OR ABSCESS W/O BLEED Qualifiers: Diverticulosis site: diverticulosis of small and large intestine Diverticulosis bleeding: diverticulosis without bleeding Qualified Code(s): K57.50 - Diverticulosis of both small and large intestine without perforation or abscess without bleeding (3) Gastric erosions Assessment/Plan: no H. pylori on biopsies Code(s): K25.9 - GASTRIC ULCER, UNSP ACUTE OR CHRONIC, W/O HEMOR OR PERF Qualifiers: Gastric ulcer chronicity: unspecified ulcer chronicity Qualified Code(s): K25.9 - Gastric ulcer, unspecified as acute or chronic, without hemorrhage or perforation (4) Anemia Assessment/Plan: multifactorial? likely related to Imbruvica, also possibly from blood loss, chronic renal disease Code(s): D64.9 - ANEMIA, UNSPECIFIED Qualifiers: Anemia type: other cause Other causes of anemia: antineoplastic chemotherapy Qualified Code(s): D64.81 - Anemia due to antineoplastic chemotherapy; T45.1X5A - Adverse effect of antineoplastic and immunosuppressive drugs, initial encounter (5) Chronic kidney disease (CKD) Code(s): N18.9 - CHRONIC KIDNEY DISEASE, UNSPECIFIED Qualifiers: Chronic kidney disease stage: stage 3 (moderate) Qualified Code(s): N18.3 - Chronic kidney disease, stage 3 (moderate) (6) Chronic lymphocytic leukemia (CLL), B-cell Assessment/Plan: CLL vs NHL? Code(s): C91.10 - CHRONIC LYMPHOCYTIC LEUK OF B-CELL TYPE NOT ACHIEVE REMIS Qualifiers: Leukemia Active/Remission status: in remission Qualified Code(s): C91.11 - Chronic lymphocytic leukemia of B-cell type in remission (7) Hernia, inguinal, left Assessment/Plan: easily reducible, present for years no evidence of obstruction or ischemia Code(s): K40.90 - UNIL INGUINAL HERNIA, W/O OBST OR GANGR, NOT SPCF RECUR
[2018-06-24] MEDS: SIMETHICONE 80 MG TAB.CHEW (FP) PO SCH ×3 (15:43→22:44)
--- NOTE | 2018-06-24 16:30 | PN ---
Progress Note (short form) - Note Progress Note: Renal follow up for JOON Pt seen and examined at the bedside awake and alert has some abd discomfort and distension no N/V/D no fever, chills, sob, CP s/p EGD yesterday Vital Signs Temperature 98.6 F 06/24/18 10:00 Pulse Rate 97 H 06/24/18 10:00 Respiratory Rate 18 06/24/18 10:00 Blood Pressure 97/60 06/24/18 10:00 O2 Sat by Pulse Oximetry (%) 95 06/24/18 09:00 Intake & Output 06/21/18 06/22/18 06/23/18 06/24/18 23:59 23:59 23:59 23:59 Intake Total 690 980 830 590 Output Total 325 1150 450 150 Balance 365 -170 380 440 NAD CTA, no rales or wheeze soft NT/ND + edema in LE CBC, BMP 06/24/18 05:30 06/24/18 05:30 Current Medications Albuterol Sulfate (Ventolin 0.083% Nebulizer Soln -) 1 amp NEB Q6H PRN PRN Reason: SHORT OF BREATH/WHEEZING Allopurinol (Zyloprim -) 100 mg PO DAILY [facility] Last Admin: 06/24/18 09:48 Dose: 100 mg Amino Acids (Prosource No Carb Liquid Pkt) 30 ml PO BID@0800,1730 [facility] Last Admin: 06/24/18 08:33 Dose: 30 ml Atorvastatin Calcium (Lipitor -) 20 mg PO HS [facility] Last Admin: 06/23/18 21:11 Dose: 20 mg Sodium Chloride (Normal Saline -) 1,000 mls @ 60 mls/hr IV ASDIR [facility] Last Admin: 06/23/18 09:42 Dose: 60 mls/hr Iron Sucrose 300 mg/ Sodium (Chloride) 250 mls @ 250 mls/hr IVPB DAILY [facility] Stop: 06/25/18 10:59 Last Admin: 06/24/18 09:48 Dose: 250 mls/hr Melatonin (Melatonin) 5 mg PO HS PRN PRN Reason: INSOMNIA Last Admin: 06/23/18 21:12 Dose: 5 mg Metoprolol Tartrate (Lopressor -) 25 mg PO BID [facility] Last Admin: 06/24/18 09:47 Dose: 25 mg Non-Formulary Medication (Ibrutinib [Imbruvica]) 140 mg PO DAILY [facility] Pantoprazole Sodium (Protonix Iv) 40 mg IVPUSH BID [facility] Last Admin: 06/24/18 10:00 Dose: 40 mg Simethicone (Mylicon -) 80 mg PO QID [facility] Last Admin: 06/24/18 15:43 Dose: 80 mg 87 year old gentleman with Hx of nonhodgkins lymphoma on chemo, Afib ob eliquis , hypertension, BPH, CKD, Anemia requring transfusions who was sent into the ED with acute on chronic animia and found to have JOON. #JOON (multifactorial secondary to hypoprofusion from GI bleed +/- ATN from NSAIDs +/- hypovolemia +/- Tumor lysis syndrome) #CKD (baseline Cr unknown) #Acute GI bleed/Ischemic colitis #Anemia #Lymphoma #BPH Renal function improving continue gentle IVF and hold diuretics trend renal function, volume status GI and Surgery follow up US results noted, mild left hydro but renal function improving so unclear if hydro is significant. Peewee Ivy DO
--- NOTE | 2018-06-24 21:56 | PN ---
GI Progress Note Subjective: GI NOte: I saw Andrew earlier in thd day after the CT scan revealed no perforations. Pain most likely due to the ischemic colitis of the right colon which is generally more refractory to healing than it's left sided counterpart. Dr Soto's consult is appreciated - Objective Vital Signs: Vital Signs Temperature 98 F 06/24/18 14:00 Pulse Rate 90 06/24/18 14:00 Respiratory Rate 18 06/24/18 14:00 Blood Pressure 125/60 06/24/18 14:00 O2 Sat by Pulse Oximetry (%) 95 06/24/18 09:00 Laboratory Tests 06/20/18 06/22/18 06/23/18 15:55 06:10 05:30 WBC 12.9 H 8.3 Hgb 9.2 L 8.9 L 06/24/18 05:30 WBC 14.3 H Hgb 9.8 L Constitutional: Anxious Gastrointestinal Inspection: Yes: Distention ...Auscultate: Yes: Normoactive Bowel Sounds ...Palpate: Yes: Soft, Other (mild RLQ tenderness but no peritoneal signs, nontender hernias) Labs: CBC, BMP 06/24/18 05:30 06/24/18 05:30 INR, PTT INR 1.12 (0.83-1.09) H 06/21/18 10:46 Problem List - Problems (1) Acute ischemic colitis Assessment/Plan: Air insufflation of inflammed ischemic colon is likey cause of adria pain. Not ready for diet advancement. Continue antibiotics Code(s): K55.039 - ACUTE ISCHEMIA OF LARGE INTESTINE, EXTENT UNSPECIFIED (2) Diverticulosis Code(s): K57.90 - DVRTCLOS OF INTEST, PART UNSP, W/O PERF OR ABSCESS W/O BLEED Qualifiers: Diverticulosis site: diverticulosis of small and large intestine Diverticulosis bleeding: diverticulosis without bleeding Qualified Code(s): K57.50 - Diverticulosis of both small and large intestine without perforation or abscess without bleeding (3) Gastric erosions Code(s): K25.9 - GASTRIC ULCER, UNSP ACUTE OR CHRONIC, W/O HEMOR OR PERF Qualifiers: Gastric ulcer chronicity: unspecified ulcer chronicity Qualified Code(s): K25.9 - Gastric ulcer, unspecified as acute or chronic, without hemorrhage or perforation
[2018-06-24] MEDS: ATORVASTATIN CA 20 MG TABLET (FP) PO SCH (22:44)
[2018-06-24] MEDS: MELATONIN 5 MG TABLETS PO PRN (22:44)
[2018-06-25 07:23] LABS: BASO % 0.1 % (0-2.0); EOS % 0.1 % (0-4.5); HEMATOCRIT 25.1 % (35.4-49); HEMOGLOBIN 8.3 GM/dL (11.7-16.9); LYMPH % 40.5 % (8-40); MCH 30.4 pg (25.7-33.7); MCHC 33.2 g/dl (32.0-35.9); MEAN CELL VOLUME 91.4 fl (80-96); MEAN PLT VOLUME 10.1 fl (7.5-11.1); MONO % 5.9 % (3.8-10.2); NEUT % 53.4 % (42.8-82.8); PLATELET COUNT 115 K/MM3 (134-434); RBC 2.75 M/mm3 (4.00-5.60); RDW 18.5 % (11.9-15.9); WHITE BLOOD COUNT 12.4 K/mm3 (4.0-10.0)
[2018-06-25] MEDS: AMINO ACIDS/PROTEIN HYDROLYS 30 ML LIQUID.PKT PO SCH ×2 (08:01→17:03)
[2018-06-25] MEDS: TAMSULOSIN HCL 0.4 MG CAP.ER.24H (FP) PO SCH (08:02)
[2018-06-25 08:29] LABS: CHLORIDE 111 mmol/L (98-107); POTASSIUM 3.7 mmol/L (3.5-5.1); SODIUM 144 mmol/L (136-145)
[2018-06-25 08:33] LABS: ANION GAP 6 (8-16); BLOOD UREA NITROGEN 39 mg/dL (7-18); CALCIUM 7.7 mg/dL (8.5-10.1); CO2 27 mmol/L (21-32); CREATININE 1.5 mg/dL (0.7-1.3); GLUCOSE,RANDOM 76 mg/dL (74-106)
--- NOTE | 2018-06-25 09:05 | PN ---
Progress Note, Physician Chief Complaint: GI bleeding Severe Anemia Ischemic colitis History of Present Illness: NAD resolving right colon ischemic colitis, angiodysplasias of the stomach and colon , severe diverticular disease. H/H stable at this time On IV abx RLQ pain only on palpation - Current Medication List Current Medications: Active Medications Albuterol Sulfate (Ventolin 0.083% Nebulizer Soln -) 1 amp NEB Q6H PRN PRN Reason: SHORT OF BREATH/WHEEZING Allopurinol (Zyloprim -) 100 mg PO DAILY [facility] Last Admin: 06/24/18 09:48 Dose: 100 mg Amino Acids (Prosource No Carb Liquid Pkt) 30 ml PO BID@0800,1730 [facility] Last Admin: 06/24/18 17:30 Dose: 30 ml Atorvastatin Calcium (Lipitor -) 20 mg PO HS [facility] Last Admin: 06/24/18 22:44 Dose: 20 mg Sodium Chloride (Normal Saline -) 1,000 mls @ 60 mls/hr IV ASDIR [facility] Last Admin: 06/24/18 14:00 Dose: 60 mls/hr Iron Sucrose 300 mg/ Sodium (Chloride) 250 mls @ 250 mls/hr IVPB DAILY [facility] Stop: 06/25/18 10:59 Last Admin: 06/24/18 09:48 Dose: 250 mls/hr Melatonin (Melatonin) 5 mg PO HS PRN PRN Reason: INSOMNIA Last Admin: 06/24/18 22:44 Dose: 5 mg Metoprolol Tartrate (Lopressor -) 25 mg PO BID [facility] Last Admin: 06/24/18 22:44 Dose: 25 mg Non-Formulary Medication (Ibrutinib [Imbruvica]) 140 mg PO DAILY [facility] Pantoprazole Sodium (Protonix Iv) 40 mg IVPUSH BID [facility] Last Admin: 06/24/18 22:44 Dose: 40 mg Simethicone (Mylicon -) 80 mg PO QID [facility] Last Admin: 06/24/18 22:44 Dose: 80 mg Tamsulosin HCl (Flomax -) 0.4 mg PO DAILY@0830 [facility] - Objective Vital Signs: Vital Signs Temperature 97.9 F 06/25/18 02:00 Pulse Rate 93 H 06/25/18 02:00 Respiratory Rate 17 06/25/18 02:00 Blood Pressure 111/63 06/25/18 02:00 O2 Sat by Pulse Oximetry (%) 93 L 06/24/18 22:00 Constitutional: Yes: Well Nourished, No Distress, Calm Cardiovascular: Yes: Regular Rate and Rhythm Respiratory: Yes: Regular Gastrointestinal: Yes: Normal Bowel Sounds, Soft, Tenderness (RLQ) Musculoskeletal: Yes: Muscle Weakness Extremities: Yes: WNL Edema: Yes Edema: LLE: Trace, RLE: Trace Peripheral Pulses WNL: Yes Neurological: Yes: Alert, Oriented Psychiatric: Yes: Alert, Oriented Labs: CBC, BMP 06/25/18 06:20 06/25/18 06:20 INR, PTT INR 1.12 (0.83-1.09) H 06/21/18 10:46 Problem List - Problems (1) Anemia Assessment/Plan: -Guaiac positive -EGD and colonoscopy-resolving right colon ischemic colitis, angiodysplasias of the stomach and colon, severe diverticular disease. -Iron % low, on venofer -PPI -monitor H/H- normal transfusion parameters. Code(s): D64.9 - ANEMIA, UNSPECIFIED Qualifiers: Anemia type: other cause Other causes of anemia: antineoplastic chemotherapy Qualified Code(s): D64.81 - Anemia due to antineoplastic chemotherapy; T45.1X5A - Adverse effect of antineoplastic and immunosuppressive drugs, initial encounter (2) GIB (gastrointestinal bleeding) Assessment/Plan: -GI on board -EGD & Colonoscopy-resolving right colon ischemic colitis, angiodysplasias of the stomach and colon, severe diverticular disease. -Pantoprazole 40 mg IVPB daily -Monitor H/H -normal transfusion parameters Code(s): K92.2 - GASTROINTESTINAL HEMORRHAGE, UNSPECIFIED Qualifiers: GI bleed type/associated pathology: unspecified gastrointestinal hemorrhage type Qualified Code(s): K92.2 - Gastrointestinal hemorrhage, unspecified (3) Chronic kidney disease (CKD) Assessment/Plan: -Nephrology on board -Cr improving -Gentle IVF -U/S moderate left hydronephrosis without obstruction, however, is not effecting renal function -monitor trend Code(s): N18.9 - CHRONIC KIDNEY DISEASE, UNSPECIFIED Qualifiers: Chronic kidney disease stage: stage 3 (moderate) Qualified Code(s): N18.3 - Chronic kidney disease, stage 3 (moderate) (4) Hypokalemia Assessment/Plan: -resolved -K+ normalized today -monitor labs in AM Code(s): E87.6 - HYPOKALEMIA (5) Afib Assessment/Plan: -AC contraindicated at this time due to GI bleed -Cardiology on board -Tele monitoring -Resume AC if cleared by GI Code(s): I48.91 - UNSPECIFIED ATRIAL FIBRILLATION Qualifiers: Atrial fibrillation type: chronic Qualified Code(s): I48.2 - Chronic atrial fibrillation (6) Acute ischemic colitis Assessment/Plan: -gentle IVF to ensure bowel hydration -tolerating clear liquid diet, diet advance by GI -CT scan showed no perforation -Simethicone to help relieve gas pains -Seen by surgery and GI Code(s): K55.039 - ACUTE ISCHEMIA OF LARGE INTESTINE, EXTENT UNSPECIFIED (7) Chronic lymphocytic leukemia (CLL), B-cell Code(s): C91.10 - CHRONIC LYMPHOCYTIC LEUK OF B-CELL TYPE NOT ACHIEVE REMIS Qualifiers: Leukemia Active/Remission status: in remission Qualified Code(s): C91.11 - Chronic lymphocytic leukemia of B-cell type in remission (8) Diverticulosis Code(s): K57.90 - DVRTCLOS OF INTEST, PART UNSP, W/O PERF OR ABSCESS W/O BLEED Qualifiers: Diverticulosis site: diverticulosis of small and large intestine Diverticulosis bleeding: diverticulosis without bleeding Qualified Code(s): K57.50 - Diverticulosis of both small and large intestine without perforation or abscess without bleeding Assessment/Plan see problem list LI[facility]'s Physical therapy
[2018-06-25 09:17] LABS: ALBUMIN 1.7 g/dl (3.4-5.0); BILIRUBIN,DIRECT 0.7 mg/dL (0.0-0.2); BILIRUBIN,TOTAL 1.1 mg/dL (0.2-1.0); TOT PROT 4.6 g/dl (6.4-8.2)
[2018-06-25] MEDS: METOPROLOL TARTRATE 25 MG TABLET (FP) PO SCH ×2 (10:02→21:39)
[2018-06-25] MEDS: SIMETHICONE 80 MG TAB.CHEW (FP) PO SCH ×4 (10:02→21:39)
[2018-06-25] MEDS: ALLOPURINOL 100 MG TABLET (FP) PO SCH (10:03)
[2018-06-25] MEDS: SODIUM CHLORIDE 1,000 ML IV SCH (10:09)
--- NOTE | 2018-06-25 10:09 | PN ---
Progress Note, Physician History of Present Illness: Hgb stable post-transfusion denies any chest pain or dyspnea, melena or hematochezia. Reports right-sided abd discomfort. - Current Medication List Current Medications: Active Medications Albuterol Sulfate (Ventolin 0.083% Nebulizer Soln -) 1 amp NEB Q6H PRN PRN Reason: SHORT OF BREATH/WHEEZING Allopurinol (Zyloprim -) 100 mg PO DAILY [facility] Last Admin: 06/25/18 10:03 Dose: 100 mg Amino Acids (Prosource No Carb Liquid Pkt) 30 ml PO BID@0800,1730 [facility] Last Admin: 06/25/18 08:01 Dose: 30 ml Atorvastatin Calcium (Lipitor -) 20 mg PO HS [facility] Last Admin: 06/24/18 22:44 Dose: 20 mg Sodium Chloride (Normal Saline -) 1,000 mls @ 60 mls/hr IV ASDIR [facility] Last Admin: 06/24/18 14:00 Dose: 60 mls/hr Iron Sucrose 300 mg/ Sodium (Chloride) 250 mls @ 250 mls/hr IVPB DAILY [facility] Stop: 06/25/18 10:59 Last Admin: 06/24/18 09:48 Dose: 250 mls/hr Piperacillin Sod/Tazobactam (Sod 3.375 gm/ Dextrose) 50 mls @ 100 mls/hr IVPB Q8H-IV [facility]; Protocol Metronidazole (Flagyl 500mg Premixed Ivpb -) 500 mg in 100 mls @ 100 mls/hr IVPB Q8H-IV [facility] Piperacillin Sod/Tazobactam (Sod 3.375 gm/ Dextrose) 50 mls @ 100 mls/hr IVPB Q8H-IV [facility]; Protocol Stop: 06/26/18 02:29 Melatonin (Melatonin) 5 mg PO HS PRN PRN Reason: INSOMNIA Last Admin: 06/24/18 22:44 Dose: 5 mg Metoprolol Tartrate (Lopressor -) 25 mg PO BID [facility] Last Admin: 06/25/18 10:02 Dose: 25 mg Non-Formulary Medication (Ibrutinib [Imbruvica]) 140 mg PO DAILY [facility] Pantoprazole Sodium (Protonix Iv) 40 mg IVPUSH BID [facility] Last Admin: 06/24/18 22:44 Dose: 40 mg Simethicone (Mylicon -) 80 mg PO QID [facility] Last Admin: 06/25/18 10:02 Dose: 80 mg Tamsulosin HCl (Flomax -) 0.4 mg PO DAILY@0830 [facility] Last Admin: 06/25/18 08:02 Dose: 0.4 mg - Objective Vital Signs: Vital Signs Temperature 98.3 F 06/25/18 09:11 Pulse Rate 89 06/25/18 09:11 Respiratory Rate 18 06/25/18 09:11 Blood Pressure 110/66 06/25/18 09:11 O2 Sat by Pulse Oximetry (%) 93 L 06/24/18 22:00 Constitutional: Yes: No Distress, Calm, Thin Neck: Yes: Supple Cardiovascular: Yes: Pulse Irregular Respiratory: Yes: Regular, Diminished, On Nasal O2 Gastrointestinal: Yes: Soft, Hypoactive Bowel Sounds, Tenderness Edema: No Labs: CBC, BMP 06/25/18 06:20 06/25/18 06:20 INR, PTT INR 1.12 (0.83-1.09) H 06/21/18 10:46 Problem List - Problems (1) Acute kidney injury Code(s): N17.9 - ACUTE KIDNEY FAILURE, UNSPECIFIED (2) Afib Code(s): I48.91 - UNSPECIFIED ATRIAL FIBRILLATION Qualifiers: Atrial fibrillation type: chronic Qualified Code(s): I48.2 - Chronic atrial fibrillation (3) GIB (gastrointestinal bleeding) Code(s): K92.2 - GASTROINTESTINAL HEMORRHAGE, UNSPECIFIED Qualifiers: GI bleed type/associated pathology: unspecified gastrointestinal hemorrhage type Qualified Code(s): K92.2 - Gastrointestinal hemorrhage, unspecified (4) CVA (cerebrovascular accident) Code(s): I63.9 - CEREBRAL INFARCTION, UNSPECIFIED Qualifiers: CVA mechanism: embolism Precerebral and cerebral artery: middle cerebral artery, left (5) Chronic anticoagulation Code(s): Z79.01 - FPC (CURRENT) USE OF ANTICOAGULANTS (6) Chronic lymphocytic leukemia (CLL), B-cell Code(s): C91.10 - CHRONIC LYMPHOCYTIC LEUK OF B-CELL TYPE NOT ACHIEVE REMIS Qualifiers: Leukemia Active/Remission status: in remission Qualified Code(s): C91.11 - Chronic lymphocytic leukemia of B-cell type in remission (7) Hyperlipidemia Code(s): E78.5 - HYPERLIPIDEMIA, UNSPECIFIED Qualifiers: Hyperlipidemia type: pure hypercholesterolemia Qualified Code(s): E78.00 - Pure hypercholesterolemia, unspecified; E78.0 - Pure hypercholesterolemia (8) Acute ischemic colitis Code(s): K55.039 - ACUTE ISCHEMIA OF LARGE INTESTINE, EXTENT UNSPECIFIED (9) Anemia due to blood loss, acute Code(s): D62 - ACUTE POSTHEMORRHAGIC ANEMIA Assessment/Plan 1. Progressive weakness related to profound anemia, gastrointestinal bleed related to ischemic colitis, angiodysplasias of the stomach and colon 2. CAD angina pectoris, stable 3. Diastolic LV dysfunction with chronic class 0-I NYHA classification LV failure, compensated/euvolemic 4. Persistent atrial fibrillation with periods of rapid ventricular response [id number] score of 6 on A/C with DOAC's/Eliquis, currently on hold related to the above noted presentation 5. History of CVA/TIA 6. HTN 7. Hypercholesterolemia 8. 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 History of recurrent diverticular bleed 10. Acute on CKD with Hypokalemia (pre-renal) 11. History of hematuria 12. History of CLL with anemia and thrombocytopenia 13. History of non Hodgkin's lymphoma PLAN: 1. Eliquis to be withheld at this point pending resolution of the above noted presentation, custodial A/C is recommended considering the above noted co- morbidities unless it is absolutely contraindicated, alternative would be JEANETTE closure devise/Watchman device 2. Continue Metoprolol 25 bid 3. Hold Lasix and continue IVF with monitoring of renal function, K correction 4. Continue Lipitor 20 qhs 5. Transfuse to maintain Hg equal or > 8.0 6. Continue abx, bowel rest, PPI per GI, not operative candidate per surgery
[2018-06-25] MEDS ORDERED: DEXTROSE 5%-WATER - 50 ML IVPB ONE ×3 (10:18→23:20)
[2018-06-25] MEDS ORDERED: PIPERACILLIN/TAZOBACTAM 3.375 GM VIAL IVPB ONE ×3 (10:18→23:19)
[2018-06-25] MEDS: PANTOPRAZOLE SODIUM 40 MG VIAL IVPUSH SCH ×2 (10:23→21:39)
[2018-06-25] MEDS: PIPERACILLIN/TAZOB 3.375 GM 3.375 GM in DEXTROSE 5%-WATER - 50 ML IVPB SCH ×2 (10:29→17:05)
--- NOTE | 2018-06-25 11:20 | PN ---
GI Progress Note Subjective: GI NOte: Had no pain until he was examined earlier. This has resolved but cultures have been drawn and antibiotics initiated. Tolerating full liquids. NO BM overnight. WBC slightly decreased - Objective Vital Signs: Vital Signs Temperature 98.3 F 06/25/18 09:11 Pulse Rate 89 06/25/18 09:11 Respiratory Rate 18 06/25/18 09:11 Blood Pressure 110/66 06/25/18 09:11 O2 Sat by Pulse Oximetry (%) 93 L 06/24/18 22:00 ...Auscultate: Yes: Normoactive Bowel Sounds ...Palpate: Yes: Soft, Other (nontender) Labs: CBC, BMP 06/25/18 06:20 06/25/18 06:20 INR, PTT INR 1.12 (0.83-1.09) H 06/21/18 10:46 Problem List - Problems (1) Acute ischemic colitis Assessment/Plan: Resolving ischemic colitis. Will try soft diet. Will resume eliquis. Continue antibiotics. Communicated with Julia Woods NP earlier. Code(s): K55.039 - ACUTE ISCHEMIA OF LARGE INTESTINE, EXTENT UNSPECIFIED (2) Diverticulosis Code(s): K57.90 - DVRTCLOS OF INTEST, PART UNSP, W/O PERF OR ABSCESS W/O BLEED Qualifiers: Diverticulosis site: diverticulosis of small and large intestine Diverticulosis bleeding: diverticulosis without bleeding Qualified Code(s): K57.50 - Diverticulosis of both small and large intestine without perforation or abscess without bleeding (3) Gastric erosions Code(s): K25.9 - GASTRIC ULCER, UNSP ACUTE OR CHRONIC, W/O HEMOR OR PERF Qualifiers: Gastric ulcer chronicity: unspecified ulcer chronicity Qualified Code(s): K25.9 - Gastric ulcer, unspecified as acute or chronic, without hemorrhage or perforation
[2018-06-25] MEDS: IRON SUCROSE INJECTION 300 MG in SODIUM CHLORIDE 235 ML IVPB SCH (11:41)
--- NOTE | 2018-06-25 17:04 | PN ---
Progress Note (short form) - Note Progress Note: Renal follow up for JOON Pt seen and examined at the bedside no acute complaints making urine denies any sob, chest pain Vital Signs Temperature 98.4 F 06/25/18 14:00 Pulse Rate 88 06/25/18 14:00 Respiratory Rate 18 06/25/18 09:11 Blood Pressure 107/56 06/25/18 14:00 O2 Sat by Pulse Oximetry (%) 95 06/25/18 09:00 Intake & Output 06/22/18 06/23/18 06/24/18 06/25/18 23:59 23:59 23:59 23:59 Intake Total 980 223 150 8758 Output Total 1150 450 150 Balance -170 130 958 2804 NAD CTA, no rales or wheeze soft NT/ND +trace edema in LE CBC, BMP 06/25/18 06:20 06/25/18 06:20 Current Medications Albuterol Sulfate (Ventolin 0.083% Nebulizer Soln -) 1 amp NEB Q6H PRN PRN Reason: SHORT OF BREATH/WHEEZING Allopurinol (Zyloprim -) 100 mg PO DAILY [facility] Last Admin: 06/25/18 10:03 Dose: 100 mg Amino Acids (Prosource No Carb Liquid Pkt) 30 ml PO BID@0800,1730 [facility] Last Admin: 06/25/18 08:01 Dose: 30 ml Apixaban (Eliquis -) 2.5 mg PO BID [facility] Atorvastatin Calcium (Lipitor -) 20 mg PO HS [facility] Last Admin: 06/24/18 22:44 Dose: 20 mg Sodium Chloride (Normal Saline -) 1,000 mls @ 60 mls/hr IV ASDIR [facility] Last Admin: 06/25/18 10:09 Dose: 60 mls/hr Piperacillin Sod/Tazobactam (Sod 3.375 gm/ Dextrose) 50 mls @ 100 mls/hr IVPB Q8H-IV [facility]; Protocol Metronidazole (Flagyl 500mg Premixed Ivpb -) 500 mg in 100 mls @ 100 mls/hr IVPB Q8H-IV [facility] Last Admin: 06/25/18 10:25 Dose: 100 mls/hr Piperacillin Sod/Tazobactam (Sod 3.375 gm/ Dextrose) 50 mls @ 100 mls/hr IVPB Q8H-IV [facility]; Protocol Stop: 06/26/18 02:29 Last Admin: 06/25/18 10:29 Dose: 100 mls/hr Melatonin (Melatonin) 5 mg PO HS PRN PRN Reason: INSOMNIA Last Admin: 06/24/18 22:44 Dose: 5 mg Metoprolol Tartrate (Lopressor -) 25 mg PO BID [facility] Last Admin: 06/25/18 10:02 Dose: 25 mg Non-Formulary Medication (Ibrutinib [Imbruvica]) 140 mg PO DAILY [facility] Pantoprazole Sodium (Protonix Iv) 40 mg IVPUSH BID [facility] Last Admin: 06/25/18 10:23 Dose: 40 mg Simethicone (Mylicon -) 80 mg PO QID [facility] Last Admin: 06/25/18 13:26 Dose: 80 mg Tamsulosin HCl (Flomax -) 0.4 mg PO DAILY@0830 [facility] Last Admin: 06/25/18 08:02 Dose: 0.4 mg 87 year old gentleman with Hx of nonhodgkins lymphoma on chemo, Afib ob eliquis , hypertension, BPH, CKD, Anemia requring transfusions who was sent into the ED with acute on chronic animia and found to have JOON. #JOON (multifactorial secondary to hypoprofusion from GI bleed +/- ATN from NSAIDs +/- hypovolemia +/- Tumor lysis syndrome) #CKD (baseline Cr unknown) #Acute GI bleed/Ischemic colitis #Anemia #Lymphoma #BPH Renal function improving continue gentle IVF monitor respiratory and volume status GI and surgical follow up Peewee Ivy DO
[2018-06-25] MEDS: ATORVASTATIN CA 20 MG TABLET (FP) PO SCH (21:39)
[2018-06-25] MEDS: MELATONIN 5 MG TABLETS PO PRN (21:39)
[2018-06-25] MEDS: APIXABAN 2.5 MG TABLET PO SCH (21:54)
--- NOTE | 2018-06-25 22:27 | PN ---
Progress Note, Physician History of Present Illness: 87yo M with multiple medical problems, including afib on Eliquis (currently held ), CLL vs NHL (in remission) on Imbruvica (currently held), h/o CVA/TIA, h/o GIB and ischemia, s/p distal ileal resection for ischemia 02/[address] Blank ( emergent, possibly embolic event), HTN, CKD, BLE edema treated with lasix but currently being held, admitted on Saturday with very low Hb (5) and had EGD/ colonoscopy Saturday by GI. He had abdominal pain yesterday, but is having no more after diet advancement from liquids to food today. WBC is back down some. He reports + flatus and small BM. He has been OOB as well per nursing. Seen and examined in bed, resting comfortably. - Current Medication List Current Medications: Active Medications Albuterol Sulfate (Ventolin 0.083% Nebulizer Soln -) 1 amp NEB Q6H PRN PRN Reason: SHORT OF BREATH/WHEEZING Allopurinol (Zyloprim -) 100 mg PO DAILY [facility] Last Admin: 06/25/18 10:03 Dose: 100 mg Amino Acids (Prosource No Carb Liquid Pkt) 30 ml PO BID@0800,1730 [facility] Last Admin: 06/25/18 17:03 Dose: 30 ml Apixaban (Eliquis -) 2.5 mg PO BID [facility] Last Admin: 06/25/18 21:54 Dose: Not Given Atorvastatin Calcium (Lipitor -) 20 mg PO HS [facility] Last Admin: 06/25/18 21:39 Dose: 20 mg Sodium Chloride (Normal Saline -) 1,000 mls @ 60 mls/hr IV ASDIR [facility] Last Admin: 06/25/18 10:09 Dose: 60 mls/hr Piperacillin Sod/Tazobactam (Sod 3.375 gm/ Dextrose) 50 mls @ 100 mls/hr IVPB Q8H-IV [facility]; Protocol Metronidazole (Flagyl 500mg Premixed Ivpb -) 500 mg in 100 mls @ 100 mls/hr IVPB Q8H-IV [facility] Last Admin: 06/25/18 17:04 Dose: 100 mls/hr Piperacillin Sod/Tazobactam (Sod 3.375 gm/ Dextrose) 50 mls @ 100 mls/hr IVPB Q8H-IV [facility]; Protocol Stop: 06/26/18 02:29 Last Admin: 06/25/18 17:05 Dose: 100 mls/hr Melatonin (Melatonin) 5 mg PO HS PRN PRN Reason: INSOMNIA Last Admin: 06/25/18 21:39 Dose: 5 mg Metoprolol Tartrate (Lopressor -) 25 mg PO BID [facility] Last Admin: 06/25/18 21:39 Dose: 25 mg Non-Formulary Medication (Ibrutinib [Imbruvica]) 140 mg PO DAILY [facility] Pantoprazole Sodium (Protonix Iv) 40 mg IVPUSH BID [facility] Last Admin: 06/25/18 21:39 Dose: 40 mg Simethicone (Mylicon -) 80 mg PO QID [facility] Last Admin: 06/25/18 21:39 Dose: 80 mg Tamsulosin HCl (Flomax -) 0.4 mg PO DAILY@0830 [facility] Last Admin: 06/25/18 08:02 Dose: 0.4 mg - Objective Vital Signs: Vital Signs Temperature 98.4 F 06/25/18 14:00 Pulse Rate 88 06/25/18 14:00 Respiratory Rate 18 06/25/18 09:11 Blood Pressure 107/56 06/25/18 14:00 O2 Sat by Pulse Oximetry (%) 95 06/25/18 09:00 Constitutional: Yes: Well Nourished, No Distress, Calm Eyes: Yes: Conjunctiva Clear, EOM Intact HENT: Yes: Atraumatic, Normocephalic Gastrointestinal: Yes: Soft, Distention (with tympany). No: Tenderness ...Rectal Exam: Yes: Deferred Extremities: No: Cool, Cyanosis Integumentary: Yes: Bruising (scattered on both arms). No: Jaundice, Rash Neurological: Yes: Alert, Oriented Labs: CBC, BMP 06/25/18 06:20 06/25/18 06:20 wbc down from 14 BUN/Cr down Problem List - Problems (1) Abdominal pain Assessment/Plan: abdominal pain resolved "I had some pain earlier but it went away, and I haven't had any more today" possibly related to resolving right-sided ischemic colitis most likely residual gas from upper and lower scopes pt passing gas, + BM per him anticipate loose/liquid BMs over next 1-2 days related to oral contrast administration no acute surgical issues identified tolerating diet will sign off please recall with questions or acute changes Code(s): R10.9 - UNSPECIFIED ABDOMINAL PAIN Qualifiers: Abdominal location: right upper quadrant Qualified Code(s): R10.11 - Right upper quadrant pain (2) Diverticulosis Assessment/Plan: no diverticulitis Code(s): K57.90 - DVRTCLOS OF INTEST, PART UNSP, W/O PERF OR ABSCESS W/O BLEED Qualifiers: Diverticulosis site: diverticulosis of small and large intestine Diverticulosis bleeding: diverticulosis without bleeding Qualified Code(s): K57.50 - Diverticulosis of both small and large intestine without perforation or abscess without bleeding (3) Gastric erosions Assessment/Plan: no H. pylori on biopsies Code(s): K25.9 - GASTRIC ULCER, UNSP ACUTE OR CHRONIC, W/O HEMOR OR PERF Qualifiers: Gastric ulcer chronicity: unspecified ulcer chronicity Qualified Code(s): K25.9 - Gastric ulcer, unspecified as acute or chronic, without hemorrhage or perforation (4) Anemia Assessment/Plan: multifactorial? likely related to Imbruvica, also possibly from blood loss, chronic renal disease stable Code(s): D64.9 - ANEMIA, UNSPECIFIED Qualifiers: Anemia type: other cause Other causes of anemia: antineoplastic chemotherapy Qualified Code(s): D64.81 - Anemia due to antineoplastic chemotherapy; T45.1X5A - Adverse effect of antineoplastic and immunosuppressive drugs, initial encounter (5) Chronic kidney disease (CKD) Code(s): N18.9 - CHRONIC KIDNEY DISEASE, UNSPECIFIED Qualifiers: Chronic kidney disease stage: stage 3 (moderate) Qualified Code(s): N18.3 - Chronic kidney disease, stage 3 (moderate) (6) Chronic lymphocytic leukemia (CLL), B-cell Code(s): C91.10 - CHRONIC LYMPHOCYTIC LEUK OF B-CELL TYPE NOT ACHIEVE REMIS Qualifiers: Leukemia Active/Remission status: in remission Qualified Code(s): C91.11 - Chronic lymphocytic leukemia of B-cell type in remission (7) Hernia, inguinal, left Assessment/Plan: easily reducible, present for years no evidence of obstruction or ischemia Code(s): K40.90 - UNIL INGUINAL HERNIA, W/O OBST OR GANGR, NOT SPCF RECUR
[2018-06-26] MEDS: APIXABAN 2.5 MG TABLET PO SCH ×2 (00:25→10:43)
[2018-06-26] MEDS: PIPERACILLIN/TAZOB 3.375 GM 3.375 GM in DEXTROSE 5%-WATER - 50 ML IVPB SCH (01:03)
[2018-06-26] MEDS ORDERED: SODIUM CHLORIDE NASAL SPRAY 44 ML BOTTLE NS PRN (01:26)
[2018-06-26] MEDS ORDERED: SIMETHICONE 80 MG TAB.CHEW (FP) PO PRN (03:00)
[2018-06-26 07:29] LABS: BASO % 0.1 % (0-2.0); EOS % 0.3 % (0-4.5); HEMATOCRIT 23.2 % (35.4-49); HEMOGLOBIN 7.8 GM/dL (11.7-16.9); LYMPH % 56.9 % (8-40); MCH 30.8 pg (25.7-33.7); MCHC 33.8 g/dl (32.0-35.9); MEAN CELL VOLUME 91.2 fl (80-96); MEAN PLT VOLUME 10.4 fl (7.5-11.1); MONO % 6.5 % (3.8-10.2); NEUT % 36.2 % (42.8-82.8); PLATELET COUNT 104 K/MM3 (134-434); RBC 2.54 M/mm3 (4.00-5.60); RDW 18.6 % (11.9-15.9); WHITE BLOOD COUNT 9.8 K/mm3 (4.0-10.0)
[2018-06-26 08:41] LABS: CHLORIDE 113 mmol/L (98-107); POTASSIUM 3.6 mmol/L (3.5-5.1); SODIUM 147 mmol/L (136-145)
[2018-06-26 08:58] LABS: ANION GAP 9 (8-16); BLOOD UREA NITROGEN 36 mg/dL (7-18); CALCIUM 7.6 mg/dL (8.5-10.1); CO2 25 mmol/L (21-32); CREATININE 1.4 mg/dL (0.7-1.3); GLUCOSE,RANDOM 84 mg/dL (74-106); LDH 185 U/L (87-241); MAGNESIUM 1.9 mg/dL (1.8-2.4); PHOSPHOROUS 1.9 mg/dL (2.5-4.9); URIC ACID 7.4 mg/dL (2.6-7.2)
--- NOTE | 2018-06-26 10:29 | PN ---
Progress Note, Physician History of Present Illness: Hgb stable post-transfusion denies any chest pain or dyspnea, melena or hematochezia. Reports right-sided abd discomfort improving, tolerating soft diet , increasing LE edema off Lasix. - Current Medication List Current Medications: Active Medications Allopurinol (Zyloprim -) 100 mg PO DAILY [facility] Last Admin: 06/25/18 10:03 Dose: 100 mg Amino Acids (Prosource No Carb Liquid Pkt) 30 ml PO BID@0800,1730 [facility] Last Admin: 06/25/18 17:03 Dose: 30 ml Apixaban (Eliquis -) 2.5 mg PO BID [facility] Last Admin: 06/26/18 00:25 Dose: 2.5 mg Atorvastatin Calcium (Lipitor -) 20 mg PO HS [facility] Last Admin: 06/25/18 21:39 Dose: 20 mg Sodium Chloride (Normal Saline -) 1,000 mls @ 60 mls/hr IV ASDIR [facility] Last Admin: 06/25/18 10:09 Dose: 60 mls/hr Piperacillin Sod/Tazobactam (Sod 3.375 gm/ Dextrose) 50 mls @ 100 mls/hr IVPB Q8H-IV [facility]; Protocol Metronidazole (Flagyl 500mg Premixed Ivpb -) 500 mg in 100 mls @ 100 mls/hr IVPB Q8H-IV [facility] Last Admin: 06/26/18 01:03 Dose: 100 mls/hr Melatonin (Melatonin) 5 mg PO HS PRN PRN Reason: INSOMNIA Last Admin: 06/25/18 21:39 Dose: 5 mg Metoprolol Tartrate (Lopressor -) 25 mg PO BID [facility] Last Admin: 06/25/18 21:39 Dose: 25 mg Non-Formulary Medication (Ibrutinib [Imbruvica]) 140 mg PO DAILY [facility] Pantoprazole Sodium (Protonix Iv) 40 mg IVPUSH BID [facility] Last Admin: 06/25/18 21:39 Dose: 40 mg Simethicone (Mylicon -) 80 mg PO QID PRN PRN Reason: GAS Sodium Chloride ([place] Nasal [place] -) 2 spray NS BID PRN PRN Reason: NASAL CONGESTION Tamsulosin HCl (Flomax -) 0.4 mg PO DAILY@0830 [facility] Last Admin: 06/25/18 08:02 Dose: 0.4 mg - Objective Vital Signs: Vital Signs Temperature 98 F 06/26/18 05:30 Pulse Rate 88 06/26/18 05:30 Respiratory Rate 18 06/26/18 05:30 Blood Pressure 111/61 06/26/18 05:30 O2 Sat by Pulse Oximetry (%) 94 L 06/25/18 21:00 Constitutional: Yes: No Distress, Calm, Thin Neck: Yes: Supple Cardiovascular: Yes: Tachycardia, Pulse Irregular Respiratory: Yes: Regular, Diminished, On Nasal O2 Gastrointestinal: Yes: Soft, Hypoactive Bowel Sounds, Tenderness Edema: Yes Edema: LLE: 1+, RLE: 1+ Labs: CBC, BMP 06/26/18 06:18 06/26/18 06:18 INR, PTT INR 1.12 (0.83-1.09) H 06/21/18 10:46 - ....Imaging EKG: Report Reviewed (Tele: Rapid afib) Problem List - Problems (1) Acute kidney injury Code(s): N17.9 - ACUTE KIDNEY FAILURE, UNSPECIFIED (2) Afib Code(s): I48.91 - UNSPECIFIED ATRIAL FIBRILLATION Qualifiers: Atrial fibrillation type: chronic Qualified Code(s): I48.2 - Chronic atrial fibrillation (3) GIB (gastrointestinal bleeding) Code(s): K92.2 - GASTROINTESTINAL HEMORRHAGE, UNSPECIFIED Qualifiers: GI bleed type/associated pathology: unspecified gastrointestinal hemorrhage type Qualified Code(s): K92.2 - Gastrointestinal hemorrhage, unspecified (4) CVA (cerebrovascular accident) Code(s): I63.9 - CEREBRAL INFARCTION, UNSPECIFIED Qualifiers: CVA mechanism: embolism Precerebral and cerebral artery: middle cerebral artery, left (5) Chronic anticoagulation Code(s): Z79.01 - [employer] (CURRENT) USE OF ANTICOAGULANTS (6) Chronic lymphocytic leukemia (CLL), B-cell Code(s): C91.10 - CHRONIC LYMPHOCYTIC LEUK OF B-CELL TYPE NOT ACHIEVE REMIS Qualifiers: Leukemia Active/Remission status: in remission Qualified Code(s): C91.11 - Chronic lymphocytic leukemia of B-cell type in remission (7) Hyperlipidemia Code(s): E78.5 - HYPERLIPIDEMIA, UNSPECIFIED Qualifiers: Hyperlipidemia type: pure hypercholesterolemia Qualified Code(s): E78.00 - Pure hypercholesterolemia, unspecified; E78.0 - Pure hypercholesterolemia (8) Acute ischemic colitis Code(s): K55.039 - ACUTE ISCHEMIA OF LARGE INTESTINE, EXTENT UNSPECIFIED (9) Anemia due to blood loss, acute Code(s): D62 - ACUTE POSTHEMORRHAGIC ANEMIA Assessment/Plan 1. Progressive weakness related to profound anemia, gastrointestinal bleed related to ischemic colitis, angiodysplasias of the stomach and colon 2. CAD angina pectoris, stable 3. Diastolic LV dysfunction with chronic class 0-I NYHA classification LV failure, compensated/euvolemic 4. Persistent atrial fibrillation with periods of rapid ventricular response [id number] score of 6 on A/C with DOAC's/Eliquis 5. History of CVA/TIA 6. HTN 7. Hypercholesterolemia 8. 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 History of recurrent diverticular bleed 10. Acute on CKD with Hypokalemia (pre-renal) 11. History of hematuria 12. History of CLL with anemia and thrombocytopenia 13. History of non Hodgkin's lymphoma PLAN: 1. Resumed Eliquis 2.5 bid 2. Increase Metoprolol 50 bid 3. Hold Lasix and continue IVF with monitoring of renal function, K correction 4. Continue Lipitor 20 qhs 5. Transfuse to maintain Hg equal or > 8.0 6. Continue abx, diet advancement, PPI per GI, not operative candidate per surgery
[2018-06-26] MEDS ORDERED: METOPROLOL TARTRATE 25 MG TABLET (FP) PO ONE (10:38)
[2018-06-26] MEDS: AMINO ACIDS/PROTEIN HYDROLYS 30 ML LIQUID.PKT PO SCH ×2 (10:43→17:27)
[2018-06-26] MEDS: TAMSULOSIN HCL 0.4 MG CAP.ER.24H (FP) PO SCH (10:43)
[2018-06-26] MEDS: ALLOPURINOL 100 MG TABLET (FP) PO SCH (10:43)
[2018-06-26] MEDS: PANTOPRAZOLE SODIUM 40 MG VIAL IVPUSH SCH ×2 (10:49→22:00)
[2018-06-26] MEDS: METOPROLOL TARTRATE 25 MG TABLET (FP) PO SCH (10:49)
--- NOTE | 2018-06-26 11:04 | PN ---
Progress Note, Physician Chief Complaint: GI bleeding Severe Anemia Ischemic colitis History of Present Illness: NAD resolving right colon ischemic colitis, angiodysplasias of the stomach and colon , severe diverticular disease. H/H stable at this time On IV abx RLQ pain only on palpation - Current Medication List Current Medications: Active Medications Allopurinol (Zyloprim -) 100 mg PO DAILY [facility] Last Admin: 06/26/18 10:43 Dose: 100 mg Amino Acids (Prosource No Carb Liquid Pkt) 30 ml PO BID@0800,1730 [facility] Last Admin: 06/26/18 10:43 Dose: 30 ml Apixaban (Eliquis -) 2.5 mg PO BID [facility] Last Admin: 06/26/18 10:43 Dose: 2.5 mg Atorvastatin Calcium (Lipitor -) 20 mg PO HS [facility] Last Admin: 06/25/18 21:39 Dose: 20 mg Sodium Chloride (Normal Saline -) 1,000 mls @ 60 mls/hr IV ASDIR [facility] Last Admin: 06/25/18 10:09 Dose: 60 mls/hr Piperacillin Sod/Tazobactam (Sod 3.375 gm/ Dextrose) 50 mls @ 100 mls/hr IVPB Q8H-IV [facility]; Protocol Metronidazole (Flagyl 500mg Premixed Ivpb -) 500 mg in 100 mls @ 100 mls/hr IVPB Q8H-IV [facility] Last Admin: 06/26/18 10:49 Dose: 100 mls/hr Melatonin (Melatonin) 5 mg PO HS PRN PRN Reason: INSOMNIA Last Admin: 06/25/18 21:39 Dose: 5 mg Metoprolol Tartrate (Lopressor -) 25 mg PO ONCE ONE Stop: 06/26/18 10:39 Metoprolol Tartrate (Lopressor -) 50 mg PO BID [facility] Non-Formulary Medication (Ibrutinib [Imbruvica]) 140 mg PO DAILY [facility] Pantoprazole Sodium (Protonix Iv) 40 mg IVPUSH BID [facility] Last Admin: 06/26/18 10:49 Dose: 40 mg Simethicone (Mylicon -) 80 mg PO QID PRN PRN Reason: GAS Sodium Chloride ([place] Nasal [place] -) 2 spray NS BID PRN PRN Reason: NASAL CONGESTION Tamsulosin HCl (Flomax -) 0.4 mg PO DAILY@0830 [facility] Last Admin: 06/26/18 10:43 Dose: 0.4 mg - Objective Vital Signs: Vital Signs Temperature 98 F 06/26/18 05:30 Pulse Rate 88 06/26/18 05:30 Respiratory Rate 18 06/26/18 05:30 Blood Pressure 111/61 06/26/18 05:30 O2 Sat by Pulse Oximetry (%) 94 L 06/25/18 21:00 Constitutional: Yes: Well Nourished, No Distress Labs: CBC, BMP 06/26/18 06:18 06/26/18 06:18 INR, PTT INR 1.12 (0.83-1.09) H 06/21/18 10:46 Problem List - Problems (1) Anemia Assessment/Plan: -Guaiac positive -EGD and colonoscopy-resolving right colon ischemic colitis, angiodysplasias of the stomach and colon, severe diverticular disease. -Iron % low, on venofer -PPI -monitor H/H- normal transfusion parameters. Code(s): D64.9 - ANEMIA, UNSPECIFIED Qualifiers: Anemia type: other cause Other causes of anemia: antineoplastic chemotherapy Qualified Code(s): D64.81 - Anemia due to antineoplastic chemotherapy; T45.1X5A - Adverse effect of antineoplastic and immunosuppressive drugs, initial encounter (2) GIB (gastrointestinal bleeding) Assessment/Plan: -GI on board -EGD & Colonoscopy-resolving right colon ischemic colitis, angiodysplasias of the stomach and colon, severe diverticular disease. -Pantoprazole 40 mg IVPB daily -Monitor H/H -normal transfusion parameters Code(s): K92.2 - GASTROINTESTINAL HEMORRHAGE, UNSPECIFIED Qualifiers: GI bleed type/associated pathology: unspecified gastrointestinal hemorrhage type Qualified Code(s): K92.2 - Gastrointestinal hemorrhage, unspecified (3) Chronic kidney disease (CKD) Assessment/Plan: -Nephrology on board -Cr improving -Gentle IVF -U/S moderate left hydronephrosis without obstruction, however, is not effecting renal function -monitor trend Code(s): N18.9 - CHRONIC KIDNEY DISEASE, UNSPECIFIED Qualifiers: Chronic kidney disease stage: stage 3 (moderate) Qualified Code(s): N18.3 - Chronic kidney disease, stage 3 (moderate) (4) Hypokalemia Assessment/Plan: -resolved -K+ normalized today -monitor labs in AM Code(s): E87.6 - HYPOKALEMIA (5) Afib Assessment/Plan: -AC contraindicated at this time due to GI bleed -Cardiology on board -Tele monitoring -Hold Eliquis due to drop in H/H Code(s): I48.91 - UNSPECIFIED ATRIAL FIBRILLATION Qualifiers: Atrial fibrillation type: chronic Qualified Code(s): I48.2 - Chronic atrial fibrillation (6) Acute ischemic colitis Assessment/Plan: -gentle IVF to ensure bowel hydration -tolerating clear liquid diet, diet advance by GI -CT scan showed no perforation -Simethicone to help relieve gas pains -Seen by surgery and GI Code(s): K55.039 - ACUTE ISCHEMIA OF LARGE INTESTINE, EXTENT UNSPECIFIED (7) Chronic lymphocytic leukemia (CLL), B-cell Assessment/Plan: -Oncology -On Imbruvica Code(s): C91.10 - CHRONIC LYMPHOCYTIC LEUK OF B-CELL TYPE NOT ACHIEVE REMIS Qualifiers: Leukemia Active/Remission status: in remission Qualified Code(s): C91.11 - Chronic lymphocytic leukemia of B-cell type in remission (8) Diverticulosis Code(s): K57.90 - DVRTCLOS OF INTEST, PART UNSP, W/O PERF OR ABSCESS W/O BLEED Qualifiers: Diverticulosis site: diverticulosis of small and large intestine Diverticulosis bleeding: diverticulosis without bleeding Qualified Code(s): K57.50 - Diverticulosis of both small and large intestine without perforation or abscess without bleeding Assessment/Plan see problem list [facility]
[2018-06-26] MEDS ORDERED: FUROSEMIDE 40 MG/4 ML INJECTABLE VIAL IVPUSH ONE (11:05)
[2018-06-26 11:56] LABS: PLATELET ESTIMATE SLT DECREASE
--- NOTE | 2018-06-26 14:59 | PN ---
Progress Note (short form) - Note Progress Note: Renal follow up for JOON Pt seen and examined at the bedside no acute complaints denies any sob, chest pain, abd pain, N/V/D legs getting more swollen Vital Signs Temperature 98.1 F 06/26/18 10:00 Pulse Rate 97 H 06/26/18 10:00 Respiratory Rate 18 06/26/18 10:00 Blood Pressure 111/56 06/26/18 10:00 O2 Sat by Pulse Oximetry (%) 94 L 06/26/18 09:00 Intake & Output 06/23/18 06/24/18 06/25/18 06/26/18 23:59 23:59 23:59 23:59 Intake Total 158 809 1254 1130 Output Total 450 150 150 490 Balance 522 806 7745 640 NAD CTA, no rales or wheeze soft NT/ND +edema in LE CBC, BMP 06/26/18 06:18 06/26/18 06:18 Current Medications Allopurinol (Zyloprim -) 100 mg PO DAILY [facility] Last Admin: 06/26/18 10:43 Dose: 100 mg Amino Acids (Prosource No Carb Liquid Pkt) 30 ml PO BID@0800,1730 [facility] Last Admin: 06/26/18 10:43 Dose: 30 ml Apixaban (Eliquis -) 2.5 mg PO BID [facility] Last Admin: 06/26/18 10:43 Dose: 2.5 mg Atorvastatin Calcium (Lipitor -) 20 mg PO HS [facility] Last Admin: 06/25/18 21:39 Dose: 20 mg Furosemide (Lasix -) 40 mg PO DAILY@1400 [facility] Furosemide (Lasix -) 80 mg PO DAILY@0600 [facility] Piperacillin Sod/Tazobactam (Sod 3.375 gm/ Dextrose) 50 mls @ 100 mls/hr IVPB Q8H-IV [facility]; Protocol Metronidazole (Flagyl 500mg Premixed Ivpb -) 500 mg in 100 mls @ 100 mls/hr IVPB Q8H-IV [facility] Last Admin: 06/26/18 10:49 Dose: 100 mls/hr Melatonin (Melatonin) 5 mg PO HS PRN PRN Reason: INSOMNIA Last Admin: 06/25/18 21:39 Dose: 5 mg Metoprolol Tartrate (Lopressor -) 50 mg PO BID [facility] Non-Formulary Medication (Ibrutinib [Imbruvica]) 140 mg PO DAILY [facility] Pantoprazole Sodium (Protonix Iv) 40 mg IVPUSH BID [facility] Last Admin: 06/26/18 10:49 Dose: 40 mg Simethicone (Mylicon -) 80 mg PO QID PRN PRN Reason: GAS Sodium Chloride ([place] Nasal [place] -) 2 spray NS BID PRN PRN Reason: NASAL CONGESTION Tamsulosin HCl (Flomax -) 0.4 mg PO DAILY@0830 [facility] Last Admin: 06/26/18 10:43 Dose: 0.4 mg 87 year old gentleman with Hx of nonhodgkins lymphoma on chemo, Afib ob eliquis , hypertension, BPH, CKD, Anemia requring transfusions who was sent into the ED with acute on chronic animia and found to have JOON. #JOON (multifactorial secondary to hypoprofusion from GI bleed +/- ATN from NSAIDs +/- hypovolemia +/- Tumor lysis syndrome) #CKD (baseline Cr unknown) #Acute GI bleed/Ischemic colitis #Anemia #Lymphoma #BPH Renal function improved to near baseline will d/c IVF, start oral lasix at home dose as pt developing worsening anemia PRBC transfusion as per primary Trend renal function and electrolyses Peewee Ivy DO
[2018-06-26] MEDS: FUROSEMIDE 40 MG TABLET (FP) PO SCH (15:27)
[2018-06-26] MEDS: METOPROLOL TARTRATE 50 MG TABLET (FP) PO SCH (23:00)
[2018-06-26] MEDS: ATORVASTATIN CA 20 MG TABLET (FP) PO SCH (23:00)
[2018-06-26 23:12] VITALS: BMI 22.7
[2018-06-27] MEDS ORDERED: FUROSEMIDE 40 MG TABLET (FP) PO SCH (06:00)
[2018-06-27 06:29] LABS: BASO % 0.2 % (0-2.0); EOS % 0.4 % (0-4.5); HEMATOCRIT 29.1 % (35.4-49); HEMOGLOBIN 9.9 GM/dL (11.7-16.9); LYMPH % 63.8 % (8-40); MCH 30.2 pg (25.7-33.7); MCHC 34.1 g/dl (32.0-35.9); MEAN CELL VOLUME 88.7 fl (80-96); MEAN PLT VOLUME 10.3 fl (7.5-11.1); NEUT % 29.6 % (42.8-82.8); PLATELET COUNT 133 K/MM3 (134-434); RBC 3.28 M/mm3 (4.00-5.60); RDW 19.7 % (11.9-15.9); WHITE BLOOD COUNT 12.8 K/mm3 (4.0-10.0)
[2018-06-27 06:45] LABS: ANION GAP 8 (8-16); BLOOD UREA NITROGEN 37 mg/dL (7-18); CALCIUM 7.4 mg/dL (8.5-10.1); CHLORIDE 111 mmol/L (98-107); CO2 25 mmol/L (21-32); CREATININE 1.5 mg/dL (0.7-1.3); GLUCOSE,RANDOM 82 mg/dL (74-106); MAGNESIUM 1.8 mg/dL (1.8-2.4); PHOSPHOROUS 2.3 mg/dL (2.5-4.9); POTASSIUM 3.8 mmol/L (3.5-5.1); SODIUM 144 mmol/L (136-145)
--- NOTE | 2018-06-27 08:10 | PN ---
Progress Note, Physician - Current Medication List Current Medications: Active Medications Allopurinol (Zyloprim -) 100 mg PO DAILY [facility] Last Admin: 06/26/18 10:43 Dose: 100 mg Amino Acids (Prosource No Carb Liquid Pkt) 30 ml PO BID@0800,1730 [facility] Last Admin: 06/26/18 17:27 Dose: 30 ml Atorvastatin Calcium (Lipitor -) 20 mg PO HS [facility] Last Admin: 06/26/18 23:00 Dose: 20 mg Furosemide (Lasix -) 40 mg PO DAILY@1400 [facility] Last Admin: 06/26/18 15:27 Dose: 40 mg Furosemide (Lasix -) 80 mg PO DAILY@0600 [facility] Last Admin: 06/27/18 05:47 Dose: 80 mg Piperacillin Sod/Tazobactam (Sod 3.375 gm/ Dextrose) 50 mls @ 100 mls/hr IVPB Q8H-IV [facility]; Protocol Metronidazole (Flagyl 500mg Premixed Ivpb -) 500 mg in 100 mls @ 100 mls/hr IVPB Q8H-IV [facility] Last Admin: 06/27/18 03:00 Dose: 100 mls/hr Melatonin (Melatonin) 5 mg PO HS PRN PRN Reason: INSOMNIA Last Admin: 06/25/18 21:39 Dose: 5 mg Metoprolol Tartrate (Lopressor -) 50 mg PO BID [facility] Last Admin: 06/26/18 23:00 Dose: 50 mg Non-Formulary Medication (Ibrutinib [Imbruvica]) 140 mg PO DAILY [facility] Pantoprazole Sodium (Protonix Iv) 40 mg IVPUSH BID [facility] Last Admin: 06/26/18 22:00 Dose: 40 mg Simethicone (Mylicon -) 80 mg PO QID PRN PRN Reason: GAS Sodium Chloride ([place] Nasal [place] -) 2 spray NS BID PRN PRN Reason: NASAL CONGESTION Tamsulosin HCl (Flomax -) 0.4 mg PO DAILY@0830 [facility] Last Admin: 06/26/18 10:43 Dose: 0.4 mg - Objective Vital Signs: Vital Signs Temperature 98.3 F 06/27/18 04:00 Pulse Rate 64 06/27/18 04:00 Respiratory Rate 18 06/27/18 04:00 Blood Pressure 119/61 06/27/18 04:00 O2 Sat by Pulse Oximetry (%) 94 L 06/26/18 21:00 Cardiovascular: Yes: S1, S2 Respiratory: Yes: Regular, CTA Bilaterally Gastrointestinal: Yes: Normal Bowel Sounds, Soft Labs: CBC, BMP 06/27/18 05:30 06/27/18 05:30 INR, PTT INR 1.12 (0.83-1.09) H 06/21/18 10:46 Assessment/Plan - Problems (1) Anemia Assessment/Plan: -Guaiac positive -EGD and colonoscopy-resolving right colon ischemic colitis, angiodysplasias of the stomach and colon, severe diverticular disease. -Iron % low, on venofer -PPI -monitor H/H- normal transfusion parameters. Code(s): D64.9 - ANEMIA, UNSPECIFIED Qualifiers: Anemia type: other cause Other causes of anemia: antineoplastic chemotherapy Qualified Code(s): D64.81 - Anemia due to antineoplastic chemotherapy; T45.1X5A - Adverse effect of antineoplastic and immunosuppressive drugs, initial encounter (2) GIB (gastrointestinal bleeding) Assessment/Plan: -GI on board -EGD & Colonoscopy-resolving right colon ischemic colitis, angiodysplasias of the stomach and colon, severe diverticular disease. -Pantoprazole 40 mg IVPB daily -Monitor H/H -normal transfusion parameters Code(s): K92.2 - GASTROINTESTINAL HEMORRHAGE, UNSPECIFIED Qualifiers: GI bleed type/associated pathology: unspecified gastrointestinal hemorrhage type Qualified Code(s): K92.2 - Gastrointestinal hemorrhage, unspecified (3) Chronic kidney disease (CKD) Assessment/Plan: -Nephrology on board -Cr improving -Gentle IVF -U/S moderate left hydronephrosis without obstruction, however, is not effecting renal function -monitor trend Code(s): N18.9 - CHRONIC KIDNEY DISEASE, UNSPECIFIED Qualifiers: Chronic kidney disease stage: stage 3 (moderate) Qualified Code(s): N18.3 - Chronic kidney disease, stage 3 (moderate) (4) Hypokalemia Assessment/Plan: -resolved -monitor labs Code(s): E87.6 - HYPOKALEMIA (5) Afib Assessment/Plan: -AC contraindicated at this time due to GI bleed -Cardiology on board -Tele monitoring -Resume AC if HGB REMAINS STABLE--D/W PT AND HE AGREES NO ac AT THIS TIME Code(s): I48.91 - UNSPECIFIED ATRIAL FIBRILLATION Qualifiers: Atrial fibrillation type: chronic Qualified Code(s): I48.2 - Chronic atrial fibrillation (6) Acute ischemic colitis Assessment/Plan: -gentle IVF to ensure bowel hydration -tolerating diet -CT scan showed no perforation -Simethicone to help relieve gas pains -Seen by surgery and GI Code(s): K55.039 - ACUTE ISCHEMIA OF LARGE INTESTINE, EXTENT UNSPECIFIED (7) Chronic lymphocytic leukemia (CLL), B-cell Code(s): C91.10 - CHRONIC LYMPHOCYTIC LEUK OF B-CELL TYPE NOT ACHIEVE REMIS Qualifiers: Leukemia Active/Remission status: in remission Qualified Code(s): C91.11 - Chronic lymphocytic leukemia of B-cell type in remission (8) Diverticulosis Code(s): K57.90 - DVRTCLOS OF INTEST, PART UNSP, W/O PERF OR ABSCESS W/O BLEED Qualifiers: Diverticulosis site: diverticulosis of small and large intestine Diverticulosis bleeding: diverticulosis without bleeding Qualified Code(s): K57.50 - Diverticulosis of both small and large intestine without perforation or abscess without bleeding
--- NOTE | 2018-06-27 08:38 | PN ---
Progress Note, Physician History of Present Illness: Hgb stable post-transfusion denies any chest pain or dyspnea, melena or hematochezia. Reports right-sided abd discomfort improving, tolerating soft diet , increasing LE edema, Lasix resumed, IVF d/navjot. - Current Medication List Current Medications: Active Medications Allopurinol (Zyloprim -) 100 mg PO DAILY [facility] Last Admin: 06/26/18 10:43 Dose: 100 mg Amino Acids (Prosource No Carb Liquid Pkt) 30 ml PO BID@0800,1730 [facility] Last Admin: 06/26/18 17:27 Dose: 30 ml Atorvastatin Calcium (Lipitor -) 20 mg PO HS [facility] Last Admin: 06/26/18 23:00 Dose: 20 mg Furosemide (Lasix -) 40 mg PO DAILY@1400 [facility] Last Admin: 06/26/18 15:27 Dose: 40 mg Furosemide (Lasix -) 80 mg PO DAILY@0600 [facility] Last Admin: 06/27/18 05:47 Dose: 80 mg Piperacillin Sod/Tazobactam (Sod 3.375 gm/ Dextrose) 50 mls @ 100 mls/hr IVPB Q8H-IV [facility]; Protocol Metronidazole (Flagyl 500mg Premixed Ivpb -) 500 mg in 100 mls @ 100 mls/hr IVPB Q8H-IV [facility] Last Admin: 06/27/18 03:00 Dose: 100 mls/hr Melatonin (Melatonin) 5 mg PO HS PRN PRN Reason: INSOMNIA Last Admin: 06/25/18 21:39 Dose: 5 mg Metoprolol Tartrate (Lopressor -) 50 mg PO BID [facility] Last Admin: 06/26/18 23:00 Dose: 50 mg Non-Formulary Medication (Ibrutinib [Imbruvica]) 140 mg PO DAILY [facility] Pantoprazole Sodium (Protonix Iv) 40 mg IVPUSH BID [facility] Last Admin: 06/26/18 22:00 Dose: 40 mg Simethicone (Mylicon -) 80 mg PO QID PRN PRN Reason: GAS Sodium Chloride ([place] Nasal [place] -) 2 spray NS BID PRN PRN Reason: NASAL CONGESTION Tamsulosin HCl (Flomax -) 0.4 mg PO DAILY@0830 [facility] Last Admin: 06/26/18 10:43 Dose: 0.4 mg - Objective Vital Signs: Vital Signs Temperature 98.3 F 06/27/18 04:00 Pulse Rate 64 06/27/18 04:00 Respiratory Rate 18 06/27/18 04:00 Blood Pressure 119/61 06/27/18 04:00 O2 Sat by Pulse Oximetry (%) 94 L 06/26/18 21:00 Constitutional: Yes: No Distress, Calm, Thin Neck: Yes: Supple Cardiovascular: Yes: Pulse Irregular Respiratory: Yes: Regular, Diminished, On Nasal O2 Gastrointestinal: Yes: Normal Bowel Sounds, Soft Edema: Yes Edema: LLE: 2+, RLE: 2+ Labs: CBC, BMP 06/27/18 05:30 06/27/18 05:30 INR, PTT INR 1.12 (0.83-1.09) H 06/21/18 10:46 Problem List - Problems (1) Acute kidney injury Code(s): N17.9 - ACUTE KIDNEY FAILURE, UNSPECIFIED (2) Afib Code(s): I48.91 - UNSPECIFIED ATRIAL FIBRILLATION Qualifiers: Atrial fibrillation type: chronic Qualified Code(s): I48.2 - Chronic atrial fibrillation (3) GIB (gastrointestinal bleeding) Code(s): K92.2 - GASTROINTESTINAL HEMORRHAGE, UNSPECIFIED Qualifiers: GI bleed type/associated pathology: unspecified gastrointestinal hemorrhage type Qualified Code(s): K92.2 - Gastrointestinal hemorrhage, unspecified (4) CVA (cerebrovascular accident) Code(s): I63.9 - CEREBRAL INFARCTION, UNSPECIFIED Qualifiers: CVA mechanism: embolism Precerebral and cerebral artery: middle cerebral artery, left (5) Chronic anticoagulation Code(s): Z79.01 - LONGTERM (CURRENT) USE OF ANTICOAGULANTS (6) Chronic lymphocytic leukemia (CLL), B-cell Code(s): C91.10 - CHRONIC LYMPHOCYTIC LEUK OF B-CELL TYPE NOT ACHIEVE REMIS Qualifiers: Leukemia Active/Remission status: in remission Qualified Code(s): C91.11 - Chronic lymphocytic leukemia of B-cell type in remission (7) Hyperlipidemia Code(s): E78.5 - HYPERLIPIDEMIA, UNSPECIFIED Qualifiers: Hyperlipidemia type: pure hypercholesterolemia Qualified Code(s): E78.00 - Pure hypercholesterolemia, unspecified; E78.0 - Pure hypercholesterolemia (8) Acute ischemic colitis Code(s): K55.039 - ACUTE ISCHEMIA OF LARGE INTESTINE, EXTENT UNSPECIFIED (9) Anemia due to blood loss, acute Code(s): D62 - ACUTE POSTHEMORRHAGIC ANEMIA Assessment/Plan 1. Progressive weakness related to profound anemia, gastrointestinal bleed related to ischemic colitis, angiodysplasias of the stomach and colon 2. CAD angina pectoris, stable 3. Diastolic LV dysfunction with chronic class 0-I NYHA classification LV failure, compensated/euvolemic 4. Persistent atrial fibrillation with periods of rapid ventricular response [id number] score of 6 on A/C now off DOAC's/Eliquis 5. History of CVA/TIA 6. HTN 7. Hypercholesterolemia 8. 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 History of recurrent diverticular bleed 10. Acute on CKD with Hypokalemia (pre-renal) 11. History of hematuria 12. History of CLL with anemia and thrombocytopenia 13. History of non Hodgkin's lymphoma PLAN: 1. Resume Eliquis 2.5 bid once hemostasis achieved 2. Continue Metoprolol 50 bid 3. Resumed home Lasix dose with monitoring of diuretic response, renal function , and electrolytes 4. Continue Lipitor 20 qhs 5. Transfuse to maintain Hg equal or > 8.0 6. Complete abx course, soft diet, PPI per GI, not operative candidate per surgery
[2018-06-27] MEDS: TAMSULOSIN HCL 0.4 MG CAP.ER.24H (FP) PO SCH (09:14)
[2018-06-27] MEDS: AMINO ACIDS/PROTEIN HYDROLYS 30 ML LIQUID.PKT PO SCH (09:14)
[2018-06-27] MEDS: PANTOPRAZOLE SODIUM 40 MG VIAL IVPUSH SCH (09:16)
[2018-06-27] MEDS: METOPROLOL TARTRATE 50 MG TABLET (FP) PO SCH (09:16)
[2018-06-27] MEDS: ALLOPURINOL 100 MG TABLET (FP) PO SCH (09:17)
[2018-06-27] MEDS ORDERED: PIPERACILLIN/TAZOB 3.375 GM 3.375 GM in DEXTROSE 5%-WATER - 50 ML IVPB SCH (11:30)
[2018-06-27] MEDS ORDERED: DEXTROSE 5%-WATER - 50 ML IVPB ONE (11:33)
[2018-06-27] MEDS ORDERED: PIPERACILLIN/TAZOBACTAM 3.375 GM VIAL IVPB ONE (11:33)
[2018-06-27 12:12] LABS: PLATELET ESTIMATE DECREASED
[2018-06-27 12:13] LABS: SMUDGE CELLS FEW
--- NOTE | 2018-06-27 13:12 | PN ---
GI Progress Note Subjective: GI NOte: Tolerating solids and denies any abdominal pain or blood y diarrhea. Had a soft brown BM this AM. Hb stable. - Objective Vital Signs: Vital Signs Temperature 98 F 06/27/18 10:00 Pulse Rate 90 06/27/18 10:00 Respiratory Rate 18 06/27/18 10:00 Blood Pressure 113/58 06/27/18 10:00 O2 Sat by Pulse Oximetry (%) 95 06/27/18 09:00 Laboratory Tests 06/23/18 06/24/18 06/25/18 05:30 05:30 06:20 WBC 8.3 14.3 H 12.4 H Hgb 8.3 L Total Bilirubin Direct Bilirubin AST ALT Alkaline Phosphatase C-Reactive Protein Albumin 06/25/18 06/25/18 06/26/18 06:20 06:20 06:18 WBC Hgb Total Bilirubin 1.1 H Direct Bilirubin 0.7 H AST 13 L D ALT 18 D Alkaline Phosphatase 63 C-Reactive Protein 6.3 H 5.8 H Albumin 1.7 L 06/26/18 06/27/18 06:18 05:30 WBC 9.8 12.8 H Hgb 7.8 L 9.9 L Total Bilirubin Direct Bilirubin AST ALT Alkaline Phosphatase C-Reactive Protein Albumin Constitutional: Calm ...Auscultate: Yes: Normoactive Bowel Sounds ...Palpate: Yes: Soft, Other (nontender) Labs: CBC, BMP 06/27/18 05:30 06/27/18 05:30 INR, PTT INR 1.12 (0.83-1.09) H 06/21/18 10:46 Problem List - Problems (1) Acute ischemic colitis Assessment/Plan: Resolving ischemic colitis. No GI objections to discharge. He will followup in our office. Code(s): K55.039 - ACUTE ISCHEMIA OF LARGE INTESTINE, EXTENT UNSPECIFIED (2) Diverticulosis Code(s): K57.90 - DVRTCLOS OF INTEST, PART UNSP, W/O PERF OR ABSCESS W/O BLEED Qualifiers: Qualified Code(s): K57.50 - Diverticulosis of both small and large intestine without perforation or abscess without bleeding (3) Gastric erosions Code(s): K25.9 - GASTRIC ULCER, UNSP ACUTE OR CHRONIC, W/O HEMOR OR PERF Qualifiers: Qualified Code(s): K25.9 - Gastric ulcer, unspecified as acute or chronic, without hemorrhage or perforation
--- NOTE | 2018-06-27 13:15 | PN ---
Progress Note, Physician Chief Complaint: The patient seen in his room. Wants to go home. feeling well. Maintains good urine output. History of Present Illness: 87 year old gentleman with Hx of nonhodgkins lymphoma on chemo, Afib on Eliquis , Hypertension, BPH, CKD, Anemia requring transfusions who was sent into the ED with acute on chronic anemia and found to have JOON. - Current Medication List Current Medications: Active Medications Allopurinol (Zyloprim -) 100 mg PO DAILY [facility] Last Admin: 06/27/18 09:17 Dose: 100 mg Amino Acids (Prosource No Carb Liquid Pkt) 30 ml PO BID@0800,1730 [facility] Last Admin: 06/27/18 09:14 Dose: 30 ml Atorvastatin Calcium (Lipitor -) 20 mg PO HS [facility] Last Admin: 06/26/18 23:00 Dose: 20 mg Furosemide (Lasix -) 40 mg PO DAILY@1400 [facility] Last Admin: 06/26/18 15:27 Dose: 40 mg Furosemide (Lasix -) 80 mg PO DAILY@0600 [facility] Last Admin: 06/27/18 05:47 Dose: 80 mg Piperacillin Sod/Tazobactam (Sod 3.375 gm/ Dextrose) 50 mls @ 100 mls/hr IVPB Q8H-IV [facility]; Protocol Last Admin: 06/27/18 11:54 Dose: 100 mls/hr Metronidazole (Flagyl 500mg Premixed Ivpb -) 500 mg in 100 mls @ 100 mls/hr IVPB Q8H-IV [facility] Last Admin: 06/27/18 09:16 Dose: 100 mls/hr Melatonin (Melatonin) 5 mg PO HS PRN PRN Reason: INSOMNIA Last Admin: 06/25/18 21:39 Dose: 5 mg Metoprolol Tartrate (Lopressor -) 50 mg PO BID [facility] Last Admin: 06/27/18 09:16 Dose: 50 mg Non-Formulary Medication (Ibrutinib [Imbruvica]) 140 mg PO DAILY [facility] Pantoprazole Sodium (Protonix Iv) 40 mg IVPUSH BID [facility] Last Admin: 06/27/18 09:16 Dose: 40 mg Simethicone (Mylicon -) 80 mg PO QID PRN PRN Reason: GAS Sodium Chloride ([place] Nasal [place] -) 2 spray NS BID PRN PRN Reason: NASAL CONGESTION Tamsulosin HCl (Flomax -) 0.4 mg PO DAILY@0830 [facility] Last Admin: 06/27/18 09:14 Dose: 0.4 mg - Objective Vital Signs: Vital Signs Temperature 98 F 06/27/18 10:00 Pulse Rate 90 06/27/18 10:00 Respiratory Rate 18 06/27/18 10:00 Blood Pressure 113/58 06/27/18 10:00 O2 Sat by Pulse Oximetry (%) 95 06/27/18 09:00 Constitutional: Yes: Well Nourished, Anxious Eyes: Yes: Conjunctiva Clear HENT: Yes: Normocephalic Neck: Yes: Trachea Midline Cardiovascular: Yes: S1, S2 Respiratory: Yes: CTA Bilaterally Gastrointestinal: Yes: Normal Bowel Sounds, Soft. No: Tenderness Genitourinary: No: CVA Tenderness - Left, CVA Tenderness - Right Edema: No Labs: CBC, BMP 06/27/18 05:30 06/27/18 05:30 INR, PTT INR 1.12 (0.83-1.09) H 06/21/18 10:46 Problem List - Problems (1) Acute kidney injury Code(s): N17.9 - ACUTE KIDNEY FAILURE, UNSPECIFIED (2) Afib Code(s): I48.91 - UNSPECIFIED ATRIAL FIBRILLATION Qualifiers: Atrial fibrillation type: chronic Qualified Code(s): I48.2 - Chronic atrial fibrillation (3) Anemia Code(s): D64.9 - ANEMIA, UNSPECIFIED Qualifiers: Anemia type: other cause Other causes of anemia: antineoplastic chemotherapy Qualified Code(s): D64.81 - Anemia due to antineoplastic chemotherapy; T45.1X5A - Adverse effect of antineoplastic and immunosuppressive drugs, initial encounter (4) Lymphoplasmacytoid lymphoma, CLL Code(s): C83.00 - SMALL CELL B-CELL LYMPHOMA, UNSPECIFIED SITE Assessment/Plan 87 year old gentleman with Hx of nonhodgkins lymphoma on chemo, Afib ob eliquis , hypertension, BPH, CKD, Anemia requring transfusions who was sent into the ED with acute on chronic animia and found to have JOON. #JOON (multifactorial secondary to hypoprofusion from GI bleed +/- ATN from NSAIDs +/- hypovolemia: The renal functions close to his baseline. CKD3, the baseline not known. #Acute GI bleed/Ischemic colitis. GI w/u in progress. #Anemia #Lymphoma #BPH Will montor the renal functions with you as outpatient if discharged. Thank you. Kayla Jaime MD
[2018-06-27] MEDS: FUROSEMIDE 40 MG TABLET (FP) PO SCH (13:29)
[2018-06-27 14:47] VITALS: BP 97/52; PULSE 85; TEMP 97.6
--- NOTE | 2018-06-27 14:49 | DS ---
Physical Examination Vital Signs: Vital Signs Temperature 98 F 06/27/18 10:00 Pulse Rate 90 06/27/18 10:00 Respiratory Rate 18 06/27/18 10:00 Blood Pressure 113/58 06/27/18 10:00 O2 Sat by Pulse Oximetry (%) 95 06/27/18 09:00 Findings/Remarks: Patient is a 87 y/o male with a history of NHL, afib, HTN, BPH, and anemia who presents with anemia. 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 Patient went to [place] and was transferred to [facility]. Patient reports feelings of weakness, some fatigue and headache. The headache is in the back of his head and radiates down his neck. Patient reports he has been having dark, watery diarrhea. When he wipes he notices blood on the paper but does not notice any in the toilet. He has a frequent history of blood in his urine but reports for the past month he has not noticed any. Patient is currently being treated for his NHL by Dr. Renee with Ibrutinib. Patient denies LOC, chest pain, shortness of breath, or vision changes. CBC,CMP WBC 12.8 K/mm3 (4.0-10.0) H 06/27/18 05:30 RBC 3.28 M/mm3 (4.00-5.60) L 06/27/18 05:30 Hgb 9.9 GM/dL (11.7-16.9) L 06/27/18 05:30 Hct 29.1 % (35.4-49) L D 06/27/18 05:30 MCV 88.7 fl (80-96) 06/27/18 05:30 MCH 30.2 pg (25.7-33.7) 06/27/18 05:30 MCHC 34.1 g/dl (32.0-35.9) 06/27/18 05:30 RDW 19.7 % (11.9-15.9) H 06/27/18 05:30 Plt Count 133 K/MM3 (134-434) L D 06/27/18 05:30 MPV 10.3 fl (7.5-11.1) 06/27/18 05:30 Absolute Neuts (auto) 3.8 # 06/27/18 05:30 Total Counted 100 06/27/18 05:30 Neutrophils % 29.6 % (42.8-82.8) L 06/27/18 05:30 Neutrophils % (Manual) 36.0 % (42.8-82.8) L D 06/27/18 05:30 Lymphocytes % 63.8 % (8-40) H 06/27/18 05:30 Lymphocytes % (Manual) 60.0 % (8-40) H D 06/27/18 05:30 Monocytes % 6.0 % (3.8-10.2) 06/27/18 05:30 Monocytes % (Manual) 1 % (3.8-10.2) L 06/27/18 05:30 Eosinophils % 0.4 % (0-4.5) 06/27/18 05:30 Eosinophils % (Manual) 1.0 % (0-4.5) D 06/27/18 05:30 Basophils % 0.2 % (0-2.0) 06/27/18 05:30 Nucleated RBC % 0 % (0-0) 06/27/18 05:30 Smudge Cells Few 06/27/18 05:30 Hypochromia 1+ 06/20/18 15:55 Platelet Estimate Decreased 06/27/18 05:30 Platelet Comment Few large platelets 06/27/18 05:30 Anisocytosis 3+ 06/20/18 15:55 Microcytosis 1+ 06/20/18 15:55 Sodium 144 mmol/L (136-145) 06/27/18 05:30 Potassium 3.8 mmol/L (3.5-5.1) 06/27/18 05:30 Chloride 111 mmol/L (98-107) H 06/27/18 05:30 Carbon Dioxide 25 mmol/L (21-32) 06/27/18 05:30 Anion Gap 8 (8-16) 06/27/18 05:30 BUN 37 mg/dL (7-18) H 06/27/18 05:30 Creatinine 1.5 mg/dL (0.7-1.3) H 06/27/18 05:30 Creat Clearance w eGFR 44.27 (>60) 06/27/18 05:30 Random Glucose 82 mg/dL (74-106) 08/10/18 05:30 Lactic Acid 1.1 mmol/L (0.0-2.0) 06/27/18 05:30 Uric Acid 7.4 mg/dL (2.6-7.2) H D 06/26/18 06:18 Calcium 7.4 mg/dL (8.5-10.1) L 06/27/18 05:30 Phosphorus 2.3 mg/dL (2.5-4.9) L D 06/27/18 05:30 Magnesium 1.8 mg/dL (1.8-2.4) 06/27/18 05:30 Iron 28 ug/dL (38-169) L 06/21/18 10:46 TIBC 220 ug/dL (250-450) L 06/21/18 10:46 Iron Saturation 13 % (15-55) L 06/21/18 10:46 Total Bilirubin 1.1 mg/dL (0.2-1.0) H 06/25/18 06:20 Direct Bilirubin 0.7 mg/dL (0.0-0.2) H 06/25/18 06:20 AST 13 U/L (15-37) L D 06/25/18 06:20 ALT 18 U/L (12-78) D 06/25/18 06:20 Alkaline Phosphatase 63 U/L (45-117) 06/25/18 06:20 LD Total 185 U/L (87-241) D 06/26/18 06:18 C-Reactive Protein 5.8 MG/DL (0.00-0.3) H 06/26/18 06:18 Total Protein 4.6 g/dl (6.4-8.2) L 06/25/18 06:20 Albumin 1.7 g/dl (3.4-5.0) L 06/25/18 06:20 Total Amylase 18 U/L (25-115) L D 06/25/18 06:20 Lipase 67 U/L (73-393) L 06/25/18 06:20 Vitamin B12 1570 pg/ml (180-914) H 06/24/18 05:30 Constitutional: Yes: Well Nourished, No Distress, Calm Cardiovascular: Yes: Regular Rate and Rhythm Respiratory: Yes: Regular Gastrointestinal: Yes: Normal Bowel Sounds, Soft Musculoskeletal: Yes: Muscle Weakness Extremities: Yes: WNL Edema: Yes Edema: LLE: Trace, RLE: Trace Peripheral Pulses WNL: Yes Neurological: Yes: Alert, Oriented Psychiatric: Yes: Alert, Oriented Labs: CBC, BMP 06/27/18 05:30 06/27/18 05:30 Discharge Summary Reason For Visit: ANEMIA,ACUTE KIDNEY INJURY,GI HEMORRHAGE Current Active Problems Acute ischemic colitis (Acute) Acute kidney injury (Acute) Afib (Acute) Anemia (Acute) GIB (gastrointestinal bleeding) (Acute) Hypokalemia (Acute) Hospital Course: EGD: Resolving right colon ischemic colitis, angiodysplasias of the stomach and colon, severe diverticular disease Condition: Improved - Instructions Diet, Activity, Other Instructions: -Follow up with Dr Salter (GI), Dr Jamie (Nephrology), Dr Varma (Cardiology) and Dr West within next 2 weeks -Do not take Eliquis until further evaluation -You need labs in 1 week, CBC/CMP -Protonix 40 mg 2 x day Referrals: Denise West MD [Staff Physician] - Jonah Salter MD [Staff Physician] - Kayla Jaime MD [Staff Physician] - Elder Varma MD [Staff Physician] - Disposition: VNS/HOME HEALTH CARE - Home Medications Comprehensive Discharge Medication List: Ambulatory Orders Atorvastatin Ca [Lipitor] 20 mg PO HS 12/06/16 Furosemide [Lasix] 80 mg PO DAILY 12/06/16 Melatonin 5 mg PO HS 12/06/16 Albuterol 0.083% Nebulizer Nilam [Ventolin 0.083% Nebulizer Soln -] 1 amp NEB Q6H PRN amp 01/30/18 Metoprolol Succinate [Toprol XL -] 50 mg PO BID #60 tab.sr.24h 01/30/18 Furosemide [Lasix] 60 mg PO HS 06/20/18 Ibrutinib [Imbruvica] 140 mg PO DAILY 06/20/18 Allopurinol [Zyloprim -] 100 mg PO DAILY tablet 06/27/18 Amino Acids/Protein Hydrolys [Prosource No Carb Liquid Pkt] 30 ml PO BID@0800, 1730 packet 06/27/18 Pantoprazole Sodium [Protonix -] 40 mg PO BID #60 tablet.ec 06/27/18 Simethicone [Mylicon -] 80 mg PO QID tab.chew 06/27/18 Tamsulosin HCl [Flomax -] 0.4 mg PO DAILY@0830 cap.er.24h 06/27/18
== END 2018-06-27 16:35 | disposition home health service (06) | DRG 377 ==
LOC: FER 14:25 → J4W 20:25
PROVIDERS: ADMIT Internal Medicine; ATTEND Family Medicine
PROC: 30233N1 Transfusion of Nonautologous Red Blood Cells into Peripheral Vein, Percutaneous Approach (ICD-10-PCS; 2018-06-20)
PROC: 0DD68ZX Extraction of Stomach, Via Natural or Artificial Opening Endoscopic, Diagnostic (ICD-10-PCS; 2018-06-23)
PROC: 0DJD8ZZ Inspection of Lower Intestinal Tract, Via Natural or Artificial Opening Endoscopic (ICD-10-PCS; 2018-06-23)
PROC: 0DD98ZX Extraction of Duodenum, Via Natural or Artificial Opening Endoscopic, Diagnostic (ICD-10-PCS; principal; 2018-06-23 11:45)
DX: K92.2 Gastrointestinal hemorrhage, unspecified (principal); K55.059 Acute (reversible) ischemia of intestine, part and extent unspecified; N17.9 Acute kidney failure, unspecified; C91.10 Chronic lymphocytic leukemia of B-cell type not having achieved remission; K55.9 Vascular disorder of intestine, unspecified; I13.0 Hypertensive heart and chronic kidney disease with heart failure and stage 1 through stage 4 chronic kidney disease, or unspecified chronic kidney disease; I50.30 Unspecified diastolic (congestive) heart failure; K25.9 Gastric ulcer, unspecified as acute or chronic, without hemorrhage or perforation; K31.819 Angiodysplasia of stomach and duodenum without bleeding; N40.0 Benign prostatic hyperplasia without lower urinary tract symptoms; K57.90 Diverticulosis of intestine, part unspecified, without perforation or abscess without bleeding; E78.5 Hyperlipidemia, unspecified; I48.2 Chronic atrial fibrillation; N18.3 Chronic kidney disease, stage 3 (moderate); D63.8 Anemia in other chronic diseases classified elsewhere; E88.09 Other disorders of plasma-protein metabolism, not elsewhere classified; I25.119 Atherosclerotic heart disease of native coronary artery with unspecified angina pectoris; R10.9 Unspecified abdominal pain; D64.81 Anemia due to antineoplastic chemotherapy; T45.1X5A Adverse effect of antineoplastic and immunosuppressive drugs, initial encounter; E87.6 Hypokalemia; K64.4 Residual hemorrhoidal skin tags; K40.90 Unilateral inguinal hernia, without obstruction or gangrene, not specified as recurrent; M19.90 Unspecified osteoarthritis, unspecified site; Z87.891 Personal history of nicotine dependence; Z79.01 Long term (current) use of anticoagulants; Z86.73 Personal history of transient ischemic attack (TIA), and cerebral infarction without residual deficits
CPT/HCPCS: 36415; 36430; 74176-TC; 76775-TC; 76856-TC; 80048; 80053; 80076; 81003; 81015; 82150; 82272; 82607; 83540; 83550; 83605; 83615; 83690; 83735; 84100; 84156; 84300; 84540; 84550; 85025; 85027; 85610; 86140; 86850; 86900; 86901; 86922; 87040; 88305-TC; 93005; 93010; 97116-GP; 97161-GP; 99283-25; J1756; J7030; P9038; P9058

== ENCOUNTER 2018-07-19 21:21 | Emergency (ER) | payer OTHER, MEDICARE ==
[2018-07-19 21:39] VITALS: BP 109/62; PULSE 99; TEMP 97.8; BMI 22.1
--- NOTE | 2018-07-19 21:39 | PDOC ---
Attending Attestation - HPI HPI: 07/19/18 23:25 The patient is a 87 year old male with a significant PMH of afib, BPH, Non Hodgkin's lymphoma, who presents to the emergency department with Lower left quadrant abdominal pain since last night. He states that his LLQ pain radiates throughout his abdomen and is a 7/10 in severity. The patient reports that he has a bowel obstruction surgery a few months ago. He denies any other symptoms. He denies any fever, chills, nausea, vomit, diarrhea constipation or urinary symptoms. He denies any chest pain, shortness of breath, headache and dizziness. The patient denies any other complaints. Documentation prepared by Elizabeth Rankin, acting as medical voucher clerk for Sharla Tamayo MD. <Elizabeth Rankin - Last Filed: 07/19/18 23:25> - Resident Resident Name: Dejuan Omalley - ED Attending Attestation I have performed the following: I have examined & evaluated the patient, The case was reviewed & discussed with the resident, I agree w/resident's findings & plan - Physicial Exam PE: 07/20/18 01:01 Agree with resident exam. Pt has bilateral weeping and swollen legs 3+ pitting edema up to his knees. Abd is distended, tympanitic and tender. Pt is afebrile. He has generalized weakness and he has clear lungs. - Medical Decision Making 07/20/18 00:[address] scan from 2 weeks ago shows small bowel loops in his inguinal canals. Now here with repeat abd distension and pain. He is moving small amounts of stool. However it is apparent that he is obstructed, as an abd XR demonstrates multiple air-fluid levels. 07/20/18 02:[address] imaging at this time. He will be admitted for med surg eval. <Sharla Tamayo - Last Filed: 07/20/18 02:54> Heart Score/ECG Review - ECG Intrepretation Rhythm: Irregularly Irregular - Blue Point Blue Point: Right Blue Point Deviation - P and NC Atrial Enlargement: Right Delta Wave(s) Present: No WPW: No - QRS Widened: RBBB - ST and T Early Repolarization: No Non Specific ST-T Wave changes: Yes Prolonged Q-T Interval: Yes - ECG Impressions Tachycardia: Afib w/controlled rate <Sharla Tamayo - Last Filed: 07/20/18 02:54> Procedures - NG Lavage NG Lavage: bilious non-bloody Progress: 07/20/18 02:52 Pt hooked to suction; we were successful on the 3rd attempt. 700ml bilious dark green fluid returned. <Sharla Tamayo - Last Filed: 07/20/18 02:54>
[2018-07-19] MEDS ORDERED: SODIUM CHLORIDE 0.9% 500 ML INFUS.BAG IV ONE (22:19)
--- NOTE | 2018-07-19 22:29 | PDOC ---
History of Present Illness - General Chief Complaint: Pain Stated Complaint: ABD PAIN Time Seen by Provider: 07/19/18 21:36 - History of Present Illness Initial Comments: 07/19/18 22:29 Pt is a pleasant 87 y/o gentleman w/ a significant pmh of Non Hodgkin's lymphoma , afib, HTN, BPH, anemia, and mesenteric ischemia s/p ex lap w/ small bowel resection (01/23/18) who presents to [facility] this evening c/o LLQ abdominal pain. Pain began around 8:30 pm last night and is rated as a 7/10 in severity. Pain has since traveled across the entire lower abdomen. Pt endorses that he has been having bowel movements and well as flatus. Pt denies cp, sob, nausea, perla, dizziness, chills, or fever. Past History - Past Medical History Allergies/Adverse Reactions: Allergies Allergy/AdvReac Type Severity Reaction Status Date / Time warfarin sodium Allergy Severe bleeding Verified 07/19/18 21:39 [From Coumadin] Home Medications: Ambulatory Orders Atorvastatin Ca [Lipitor] 20 mg PO HS 12/06/16 Furosemide [Lasix] 80 mg PO DAILY 12/06/16 Melatonin 5 mg PO HS 12/06/16 Metoprolol Succinate [Toprol XL -] 50 mg PO BID #60 tab.sr.24h 01/30/18 Furosemide [Lasix] 60 mg PO HS 06/20/18 Ibrutinib [Imbruvica] 140 mg PO DAILY 06/20/18 Amino Acids/Protein Hydrolys [Prosource No Carb Liquid Pkt] 30 ml PO BID@0800, 1730 packet 06/27/18 Pantoprazole Sodium [Protonix -] 40 mg PO BID #60 tablet.ec 06/27/18 Simethicone [Mylicon -] 80 mg PO QID tab.chew 06/27/18 Anemia: No Asthma: No Cancer: Yes (lymphoma non hodgkins) Cardiac Disorders: Yes (afib-CARDIOVERSION) CVA: No COPD: No CHF: No Dementia: No Diabetes: No GI Disorders: Yes (RECTAL BLEEDING;DIVERTICULOSIS) Disorders: Yes (hematuria) HTN: No Hypercholesterolemia: Yes Liver Disease: No Seizures: No Thyroid Disease: No - Surgical History Abdominal Surgery: Yes (HERNIA SX) Appendectomy: No Cardiac Surgery: No Cholecystectomy: Yes Lung Surgery: No Neurologic Surgery: No Orthopedic Surgery: No - Suicide/Smoking/Psychosocial Hx Smoking Status: No Smoking History: Never smoked Have you smoked in the past 12 months: No Number of Cigarettes Smoked Daily: 0 If you are a former smoker, when did you quit?: 2006 Cigars Per Day: 0 Information on smoking cessation initiated: No 'Breaking Loose' booklet given: 08/23/15 Hx Alcohol Use: No Drug/Substance Use Hx: No Substance Use Type: None Hx Substance Use Treatment: No *Physical Exam - Vital Signs Last Vital Signs Temp Pulse Resp BP Pulse Ox 97.8 F 99 H 16 109/62 96 07/19/18 21:27 07/19/18 21:27 07/19/18 21:27 07/19/18 21:27 07/19/18 21:27 - Physical Exam Comments: 07/20/18 05:52 GEN- AAOx3 Neuro- No Neuro Def appreciated RS- CTA B/L CV- Irreggularly Irregular ABD- Distended, Tender, Ex-Lap scar mid abdomen EXT- 3+ edema b/l lower extremities. Onychomycosis. Echymosis b/l feet. Procedures - NG Lavage NG Lavage: bilious non-bloody Heart Score/ECG Review - ECG Intrepretation Rhythm: Irregularly Irregular - Orange Orange: Left Orange Deviation - QRS Widened: RBBB ED Treatment Course - LABORATORY CBC & Chemistry Diagram: 07/19/18 23:10 07/19/18 23:10 Medical Decision Making - Medical Decision Making 07/19/18 23:58 Pt examined in ED. C/O abdominal tenderness, endorses passing flatus and having bowel movements. -Pt refusing CT Abd/Pelvis, agreed to Abdomen Flat and Upright X-RAY -CT scan (06/24/18)--> Small bowel loops in his inguinal canals. He is moving small amounts of stool. Apparent that he is obstructed, Flat/Upright X-RAY--> multiple air-fluid levels. 07/20/18 03:30 NG Tube insertion successful 07/20/18 05:37 Pt refuses to be admitted to medical floor for further medical management. Risks of signing out AMA explained to the patient including possible sepsis, bowel perforation, and . Pt understands risks and agrees to sign out AMA. Kehinde Paez RN witnessed pt's signature. *DC/Admit/Observation/Transfer Diagnosis at time of Disposition: Small bowel obstruction - Discharge Dispostion Condition at time of disposition: Fair - Referrals - Patient Instructions - Post Discharge Activity
[2018-07-19 23:22] LABS: BASO % 0.5 % (0-2.0); EOS % 0.2 % (0-4.5); HEMATOCRIT 29.8 % (35.4-49); HEMOGLOBIN 9.8 GM/dL (11.7-16.9); LYMPH % 28.3 % (8-40); MCH 29.8 pg (25.7-33.7); MCHC 32.8 g/dl (32.0-35.9); MEAN CELL VOLUME 90.8 fl (80-96); MEAN PLT VOLUME 10.5 fl (7.5-11.1); MONO % 4.9 % (3.8-10.2); NEUT % 66.1 % (42.8-82.8); PLATELET COUNT 172 K/MM3 (134-434); RBC 3.28 M/mm3 (4.00-5.60); RDW 19.8 % (11.9-15.9); WHITE BLOOD COUNT 12.8 K/mm3 (4.0-10.0)
[2018-07-19 23:43] LABS: ALK PHOS 87 U/L (45-117); ANION GAP 6 MMOL/L (8-16); BILIRUBIN,TOTAL 0.4 mg/dL (0.2-1.0); BLOOD UREA NITROGEN 29 mg/dL (7-18); CALCIUM 7.4 mg/dL (8.5-10.1); CHLORIDE 107 mmol/L (98-107); CO2 30 mmol/L (21-32); CREATININE 2.1 mg/dL (0.7-1.3); GLUCOSE,RANDOM 83 mg/dL (74-106); SGPT/ALT 13 U/L (12-78); SODIUM 143 mmol/L (136-145); TOT PROT 5.9 g/dl (6.4-8.2)
[2018-07-19 23:44] LABS: POTASSIUM 4.9 mmol/L (3.5-5.1); SGOT/AST 21 U/L (15-37)
[2018-07-20] MEDS ORDERED: SODIUM PHOSPHATE/NA BIPHOS 133 ML ENEMA PR ONE (00:10)
[2018-07-20] MEDS ORDERED: TETRACAINE/BENZOCAINE/BUTAMBEN 20 GM SPR TP STA (01:39)
[2018-07-20] MEDS ORDERED: MORPHINE SULFATE 2 MG/ML VIAL ONE (01:55)
[2018-07-20] MEDS ORDERED: morphine CARPU-JECT 2 MG/1 ML DISP.SYRIN IVPUSH ONE (01:55)
--- NOTE | 2018-07-21 13:37 | EKG ---
Test Reason : Blood Pressure : / mmHG Vent. Rate : 083 BPM Atrial Rate : 131 BPM P-R Int : 000 ms QRS Dur : 146 ms QT Int : 414 ms P-R-T Axes : 000 -87 006 degrees QTc Int : 486 ms ATRIAL FIBRILLATION LEFT AXIS DEVIATION RIGHT BUNDLE BRANCH BLOCK INFERIOR INFARCT (CITED ON OR BEFORE 23-JAN-2018) ABNORMAL ECG WHEN COMPARED WITH ECG OF 21-JUN-2018 00:06, NONSPECIFIC T WAVE ABNORMALITY HAS REPLACED INVERTED T WAVES IN LATERAL LEADS Confirmed by LINNETTE CARVALHO MD ([id number]) on 07/21/2018 1:37:03 PM Referred By: Confirmed By:LINNETTE CARVALHO MD
== END 2018-07-20 06:35 | disposition left against medical advice (07) ==
LOC: JER 21:21
PROC: 3E0337Z Introduction of Electrolytic and Water Balance Substance into Peripheral Vein, Percutaneous Approach (ICD-10-PCS; principal; 2018-07-19)
PROC: 3E033NZ Introduction of Analgesics, Hypnotics, Sedatives into Peripheral Vein, Percutaneous Approach (ICD-10-PCS; 2018-07-19)
DX: K56.609 Unspecified intestinal obstruction, unspecified as to partial versus complete obstruction (principal); Z87.891 Personal history of nicotine dependence; C85.90 Non-Hodgkin lymphoma, unspecified, unspecified site; E78.00 Pure hypercholesterolemia, unspecified; R31.9 Hematuria, unspecified
CPT/HCPCS: 36415; 74019-TC-FY; 74176-TC; 80053; 83605; 85025; 93005; 93010; 96374; 99281-25; 99283-25; 99284-25

== ENCOUNTER 2018-07-20 08:36 | Emergency (ER) | payer OTHER, MEDICARE ==
[2018-07-20 08:42] VITALS: BMI 22.1
--- NOTE | 2018-07-20 10:39 | PDOC ---
Attending Attestation - Resident Resident Name: Tae Jesus - ED Attending Attestation I have performed the following: I have examined & evaluated the patient, The case was reviewed & discussed with the resident, I agree w/resident's findings & plan, Exceptions are as noted - HPI HPI: 07/20/18 10:40 87-year-old male with history of non-Hodgkin's lymphoma, atrial fibrillation, hypertension, BPH, anemia, mesenteric ischemia status post exploratory laparoscopy with bowel resection returns for abnormal x-ray. The patient was seen yesterday for abdominal pain and had an x-ray performed which demonstrated findings concerning for bowel traction. However, the patient left AMA. The patient was called back to return to the ER. However, the patient reports no significant better is drinking fluids and eating and moving his bowels. No fevers or chills. Patient agrees for CAT scan of the abdomen pelvis. - Physicial Exam PE: 07/20/18 10:40 GENERAL: Awake, alert, and fully oriented, in no acute distress HEAD: No signs of trauma EYES:EOMI, sclera anicteric, conjunctiva clear ENT: Auricles normal inspection, hearing grossly normal, nares patent, NECK: Normal ROM, supple, ABDOMEN: Soft, nontender, No guarding, no rebound. No masses EXTREMITIES: Normal range of motion, no edema. No clubbing or cyanosis. No cords, erythema, or tenderness NEUROLOGICAL: Cranial nerves II through XII grossly intact. Normal speech SKIN: Warm, Dry, normal turgor, no rashes or lesions noted. - Medical Decision Making 07/20/18 10:41 Vital Signs Temp Pulse Resp BP Pulse Ox 98 F 81 18 119/75 97 07/20/18 08:38 07/20/18 08:38 07/20/18 08:38 07/20/18 08:38 07/20/18 08:38 The patient is clinically better and appears well. However, given abnormal x- ray for Kranthi Avery, we'll obtain a CAT scan at pelvis. If the workup is unremarkable and there is no bowel infection, the patient could be discharged home and follow-up with primary care physician. 07/20/18 12:08 CAT scan shows no evidence of bowel structure. There is interval development of a small amount of ascites suggestive of mild ileus. Small bilateral pleural fusions are improving. There is bilateral hernias which the patient is aware about and reports no pain or discomfort at this time. Patient reports feeling well and wanted to go home. States that his nephew will come and pick him up. Heart Score/ECG Review #1 ECG reviewed & interpreted by me at: 09:40 07/20/18 11:54 atrial fibrillation 101, no std/harry, left axis deviation, RBBB, QTC 484 msec, Q wave II, avF
--- NOTE | 2018-07-20 12:05 | PDOC ---
History of Present Illness - General Chief Complaint: Revisit, Lab Variance Stated Complaint: REVISIT, LAB VARIANCE Time Seen by Provider: 07/20/18 09:48 History Source: Patient, Old Records Exam Limitations: No Limitations - History of Present Illness Initial Comments: 87 y/o male presenting to [facility] ER via private auto. He was evaluated at this facility earlier this morning with abdominal pain. Refused CT at that time. KUB was obtained and showed features concerning for obstruction. NG tube was placed and pt reported symptoms improved. He subsequently ate/drink and had a regular bowel movement. He left the department AMA. This morning, staff radiologist confirmed the Imaging optoelectronics engineer read concerning for obstruction. Pt was contacted via telephone and encouraged to return. On arrival for this visit, the pt is without complaint. Past History - Past Medical History Allergies/Adverse Reactions: Allergies Allergy/AdvReac Type Severity Reaction Status Date / Time warfarin sodium Allergy Severe bleeding Verified 07/20/18 08:41 [From Coumadin] Home Medications: Ambulatory Orders Atorvastatin Ca [Lipitor] 20 mg PO HS 12/06/16 Furosemide [Lasix] 80 mg PO DAILY 12/06/16 Melatonin 5 mg PO HS 12/06/16 Metoprolol Succinate [Toprol XL -] 50 mg PO BID #60 tab.sr.24h 01/30/18 Furosemide [Lasix] 60 mg PO HS 06/20/18 Ibrutinib [Imbruvica] 140 mg PO DAILY 06/20/18 Amino Acids/Protein Hydrolys [Prosource No Carb Liquid Pkt] 30 ml PO BID@0800, 1730 packet 06/27/18 Pantoprazole Sodium [Protonix -] 40 mg PO BID #60 tablet.ec 06/27/18 Simethicone [Mylicon -] 80 mg PO QID tab.chew 06/27/18 Unobtainable 07/20/18 Anemia: No Asthma: No Cancer: Yes (lymphoma non hodgkins) Cardiac Disorders: Yes (afib-CARDIOVERSION) CVA: No COPD: No CHF: No Dementia: No Diabetes: No GI Disorders: Yes (RECTAL BLEEDING;DIVERTICULOSIS) Disorders: Yes (hematuria) HTN: No Hypercholesterolemia: Yes Liver Disease: No Seizures: No Thyroid Disease: No - Surgical History Abdominal Surgery: Yes (HERNIA SX) Appendectomy: No Cardiac Surgery: No Cholecystectomy: Yes Lung Surgery: No Neurologic Surgery: No Orthopedic Surgery: No - Suicide/Smoking/Psychosocial Hx Smoking Status: No Smoking History: Never smoked Have you smoked in the past 12 months: No Number of Cigarettes Smoked Daily: 0 If you are a former smoker, when did you quit?: 2006 Cigars Per Day: 0 'Breaking Loose' booklet given: 08/23/15 Hx Alcohol Use: No Drug/Substance Use Hx: No Substance Use Type: None Hx Substance Use Treatment: No Review of Systems - Review of Systems Able to Perform ROS?: Yes Is the patient limited [place] proficient: No Constitutional: No: Chills, Diaphoresis, Fever Respiratory: No: Shortness of Breath Cardiac (ROS): No: Chest Pain ABD/GI: Yes: See HPI *Physical Exam - Vital Signs Last Vital Signs Temp Pulse Resp BP Pulse Ox 98 F 81 18 119/75 97 07/20/18 08:38 07/20/18 08:38 07/20/18 08:38 07/20/18 08:38 07/20/18 08:38 - Physical Exam Comments: Constitutional: Well-developed, well-nourished male in no acute distress. Found semi-fowlers in hospital bed. Alert and oriented x4. Answered all questions appropriately and completely. Speech was non-labored, non-pressured. HEENT: Normocephalic. No obvious external signs of trauma. Hearing grossly normal. No nasal discharge. Neck is supple, trachea is midline. Cardiovascular: Regular rate and regular rhythm. No murmur, rubs, clicks, or gallops. Peripheral pulses: Radial pulses full. Respiratory: Breathing unlabored. Equal chest rise and fall. Clear to auscultation bilaterally. No stridor, no wheezing, no rhonchi. Gastrointestinal: abdomen is soft, non-tender, non-distended. Neuro: Alert and oriented. Moving all four extremities spontaneously. Skin: Warm, dry, and intact. Psych: Affect: appropriate. Mood: normal ED Treatment Course - RADIOLOGY Radiology Studies Ordered: Category Date Time Status ABDOMEN & PELVIS CT W/O CONTR [CT] Stat CT Scan 07/20/18 10:45 Completed Medical Decision Making - Medical Decision Making 87 y/o male currently without current complaint. Return visit for signs of obstruction on KUB. Afebrile. Vitals unremarkable. Benign physical exam. Discussed previous imaging results and reasons for CT scan. Pt agreed to have scan performed this morning. 07/20/18 12:06 CT of abdominal and pelvis revealed signs of possible mild ileus without bowel obstruction. Suspect resolving ileus was cause of symptoms. Discussed imaging results with pt. Answered all questions. Provided return precautions. Pt expressed verbal understanding and agreement with plan to discharge home with outpatient follow up. *DC/Admit/Observation/Transfer Diagnosis at time of Disposition: Abdominal pain Qualifiers: Abdominal location: lower abdomen, unspecified Qualified Code(s): R10.30 - Lower abdominal pain, unspecified - Discharge Dispostion Disposition: HOME Condition at time of disposition: Good Decision to Admit order: No - Referrals Referrals: Denise West MD [Primary Care Provider] - Rogelio Soto MD [Staff Physician] - - Patient Instructions Printed Discharge Instructions: DI for Ileus Additional Instructions: Your CT scan did not show a bowel obstruction this morning. Please follow up with your primary care physician within the next week. I have also placed a referral in for you to see Dr. Soto, a general surgeon. You may follow up with her office as well for the hernia. Come back to the emergency department if your symptoms worsen or you feel like you need additional emergency evaluation. - Post Discharge Activity
[2018-07-20 13:18] VITALS: BP 122/76; PULSE 78; TEMP 98.1
--- NOTE | 2018-07-21 13:35 | EKG ---
Test Reason : Blood Pressure : / mmHG Vent. Rate : 101 BPM Atrial Rate : 115 BPM P-R Int : 000 ms QRS Dur : 128 ms QT Int : 374 ms P-R-T Axes : 000 -83 017 degrees QTc Int : 484 ms ATRIAL FIBRILLATION WITH RAPID VENTRICULAR RESPONSE LEFT AXIS DEVIATION RIGHT BUNDLE BRANCH BLOCK INFERIOR INFARCT (CITED ON OR BEFORE 23-JAN-2018) ABNORMAL ECG WHEN COMPARED WITH ECG OF 20-JUL-2018 01:12, NO SIGNIFICANT CHANGE WAS FOUND Confirmed by LINNETTE CARVALHO MD ([id number]) on 07/21/2018 1:34:46 PM Referred By: Confirmed By:LINNETTE CARVALHO MD
== END 2018-07-20 13:00 | disposition home or self-care (01) ==
LOC: JER 08:36
DX: R10.30 Lower abdominal pain, unspecified (principal); I48.91 Unspecified atrial fibrillation; Z85.72 Personal history of non-Hodgkin lymphomas; E78.00 Pure hypercholesterolemia, unspecified; Z88.8 Allergy status to other drugs, medicaments and biological substances
CPT/HCPCS: 74176-TC; 93005; 93010; 99283-25

== ENCOUNTER 2018-08-08 22:04 | Emergency (ER) | payer OTHER, MEDICARE ==
--- NOTE | 2018-08-08 22:05 | PDOC ---
History of Present Illness - General Stated Complaint: BLEEDING Time Seen by Provider: 08/08/18 22:05 - History of Present Illness Initial Comments: 87 y/o male with PMH of Non Hodgkin's lymphoma, afib (on Eliquis), HTN, BPH, anemia, mesenteric ischemia (s/p ex lap w/ small bowel resection (01/23/18)), and recent presentation for ileus three weeks prior presenting with increased hematuria for the past few days. States that he occasionally has hematuria but over the past three days it has progressively worsened. States that he took all of his morning medications but hasn't taken his Eliquis in at least three weeks because Dr. Durán told him not to. Denies any fevers, chills, nausea, vomiting, diarrhea, constipation, or other symptoms. 08/08/18 22:07 0 Past History - Past Medical History Allergies/Adverse Reactions: Allergies Allergy/AdvReac Type Severity Reaction Status Date / Time warfarin sodium Allergy Severe bleeding Verified 08/08/18 22:53 [From Coumadin] Home Medications: Ambulatory Orders Atorvastatin Ca [Lipitor] 20 mg PO HS 12/06/16 Furosemide [Lasix] 80 mg PO BID 12/06/16 Melatonin 5 mg PO HS 12/06/16 Metoprolol Succinate [Toprol XL -] 50 mg PO BID #60 tab.sr.24h 01/30/18 Ibrutinib [Imbruvica] 140 mg PO DAILY 06/20/18 Pantoprazole Sodium [Protonix -] 40 mg PO BID #60 tablet.ec 06/27/18 Allopurinol [Zyloprim -] 0 mg PO DAILY 08/08/18 Metolazone 0 mg PO DAILY 08/08/18 Anemia: No Asthma: No Cancer: Yes (lymphoma non hodgkins) Cardiac Disorders: Yes (afib-CARDIOVERSION) CVA: No COPD: No CHF: No Dementia: No Diabetes: No GI Disorders: Yes (RECTAL BLEEDING;DIVERTICULOSIS) Disorders: Yes (hematuria) HTN: No Hypercholesterolemia: Yes Liver Disease: No Seizures: No Thyroid Disease: No - Surgical History Abdominal Surgery: Yes (HERNIA SX) Appendectomy: No Cardiac Surgery: No Cholecystectomy: Yes Lung Surgery: No Neurologic Surgery: No Orthopedic Surgery: No - Suicide/Smoking/Psychosocial Hx Smoking Status: No Smoking History: Never smoked Have you smoked in the past 12 months: No Number of Cigarettes Smoked Daily: 0 If you are a former smoker, when did you quit?: 2006 Cigars Per Day: 0 'Breaking Loose' booklet given: 08/23/15 Hx Alcohol Use: No Drug/Substance Use Hx: No Substance Use Type: None Hx Substance Use Treatment: No Review of Systems - Review of Systems Constitutional: No: Chills, Diaphoresis, Fever, Loss of Appetite HEENTM: No: Eye Pain, Blurred Vision Respiratory: No: Cough, Orthopnea, Shortness of Breath Cardiac (ROS): No: Chest Pain, Edema, Irregular Heart Rate ABD/GI: No: Nausea, Poor Appetite, Vomiting : Yes: Hematuria. No: Dysuria, Discharge, Frequency, Incontinence, Urgency Musculoskeletal: No: Back Pain, Joint Pain Integumentary: Yes: Bruising, Erythema. No: Lesions Neurological: No: Headache, Numbness, Paresthesia Psychiatric: No: Anxiety, Depression Endocrine: No: Flushing, Increased Urine Hematologic/Lymphatic: Yes: Easy Bleeding, Easy Bruising. No: Anemia, Blood Clots *Physical Exam - Physical Exam General Appearance: Yes: Nourished, Appropriately Dressed. No: Apparent Distress HEENT: positive: EOMI, RICK, Normal ENT Inspection, Normal Voice Neck: positive: Trachea midline, Normal Thyroid, Supple. negative: Tender, Rigid Respiratory/Chest: positive: Lungs Clear, Normal Breath Sounds. negative: Chest Tender, Respiratory Distress, Accessory Muscle Use Cardiovascular: positive: Edema (B/l 3+ pitting edema to posterior thighs), Tachycardia, Irregularly Irregular Gastrointestinal/Abdominal: positive: Normal Bowel Sounds, Flat, Soft. negative : Tender Male Genitalia: positive: normal genitalia, hematuria (spotty in the front of his diaper). negative: discharge Lymphatic: negative: Adenopathy, Tenderness Musculoskeletal: positive: Normal Inspection. negative: Decreased Range of Motion Extremity: positive: Normal Capillary Refill, Normal Inspection, Normal Range of Motion. negative: Tender Integumentary: positive: Dry, Warm, Erythema, Petechiae, Rash. negative: Normal Color Neurologic: positive: Fully Oriented, Alert, Normal Mood/Affect, Normal Response , Motor Strength 5/5 ED Treatment Course - LABORATORY CBC & Chemistry Diagram: 08/08/18 22:28 08/08/18 22:28 Medical Decision Making - Medical Decision Making 87 M presenting with hematuria, tachycardia, and hypotension in the setting of thrombocytopenia. Patient had gross hematuria on exam as well. His hypotension resolved after one liter of normal saline and we wanted to administer a dose of metoprolol for his afib with rvr but patient required more fluid prior to medication for pressure improvement. We wanted to admit the patient for further workup by urology but the patient continuously asked to leave and eventually AMA 'd. 08/09/18 04:08 *DC/Admit/Observation/Transfer Diagnosis at time of Disposition: Atrial fibrillation with RVR Hematuria Qualifiers: Hematuria type: gross Qualified Code(s): R31.0 - Gross hematuria - Discharge Dispostion Disposition: AGAINST MEDICAL ADVICE Condition at time of disposition: Improved Decision to Admit order: No - Referrals Referrals: Camilo Coronado MD [Primary Care Provider] - - Patient Instructions - Post Discharge Activity
--- NOTE | 2018-08-08 22:09 | PDOC ---
Attending Attestation - Resident Resident Name: Norah Everett - ED Attending Attestation I have performed the following: I have examined & evaluated the patient, The case was reviewed & discussed with the resident, I agree w/resident's findings & plan - HPI HPI: 08/08/18 22:19 Pt comes with hypotension and hematuria - Physicial Exam PE: 08/09/18 19:16 Agree with resident exam. Pt has violaceous bruises on arms from previous IVs and blood draws. Pt has mild pitting edema and skin changes of bilateral lower legs and feet. Pt has no abdominal tenderness. He has dark red urine in his bedside urinal. Pt has steady gait and he is comfortable. He wants to go home. Despite my spending 30-40 inutes talking to him about the need for admission, pt admits he is afraid to be hospitalized and he wants to go home. - Medical Decision Making 08/09/18 03:31 Patient Name: DANIELLE CASTILLO THIS IS A PRELIMINARY REPORT FROM [facility] DATE OF SERVICE: 2018-08-09 00:26:15 IMAGES: 45 EXAM: ULTRASOUND RENAL COMPLETE 6.2 x 4.3 x 3.5 cm heterogeneous mass in bladder without definite vascularity, possibly an organized hematoma versus a hypovascular mass. Advise followup cystoscopy. Bilateral ureteral jets seen in bladder per technologist's notes (at 3:16 a.m. EDT x ray service technician Jaylene read out loud the notes documented by the x ray service technician who performed the exam). 228 cc postvoid residual in bladder. Minimal to moderate left hydronephrosis. Two 1.9 cm cysts in right kidney. No right hydronephrosis. Prostate volume 29.7 cc.
[2018-08-08 22:12] VITALS: TEMP 98.7; BMI 19.9
[2018-08-08] MEDS ORDERED: SODIUM CHLORIDE 0.9% 500 ML INFUS.BAG IV ONE ×2 (22:19→22:21)
[2018-08-08 22:46] LABS: BASO % 0.4 % (0-2.0); HEMATOCRIT 26.5 % (35.4-49); HEMOGLOBIN 8.7 GM/dL (11.7-16.9); LYMPH % 21.2 % (8-40); MCH 29.8 pg (25.7-33.7); MCHC 32.8 g/dl (32.0-35.9); MEAN PLT VOLUME 11.1 fl (7.5-11.1); MONO % 5.9 % (3.8-10.2); NEUT % 72.5 % (42.8-82.8); PLATELET COUNT 117 K/MM3 (134-434); RBC 2.91 M/mm3 (4.00-5.60); RDW 20.2 % (11.9-15.9); WHITE BLOOD COUNT 11.2 K/mm3 (4.0-10.0)
[2018-08-08 22:59] LABS: INR 1.65 (0.83-1.09); PROTHROMBIN TIME (PATIENT) 18.6 SEC (9.7-13.0)
[2018-08-08 23:15] LABS: ALBUMIN 1.8 g/dl (3.4-5.0); ALK PHOS 109 U/L (45-117); ANION GAP 9 MMOL/L (8-16); BILIRUBIN,TOTAL 0.5 mg/dL (0.2-1); BLOOD UREA NITROGEN 49 mg/dL (7-18); CHLORIDE 105 mmol/L (98-107); CO2 27 mmol/L (21-32); CREATININE 3.4 mg/dL (0.55-1.3); GLUCOSE,RANDOM 88 mg/dL (74-106); POTASSIUM 3.5 mmol/L (3.5-5.1); SGOT/AST 14 U/L (15-37); SGPT/ALT 13 U/L (13-61); SODIUM 141 mmol/L (136-145); TOT PROT 5.2 g/dl (6.4-8.2)
[2018-08-08] MEDS ORDERED: SODIUM CHLORIDE 500 ML IV STA (23:51)
[2018-08-09 00:29] LABS: URINE APPEARANCE CLOUDY; URINE BILIRUBIN NEGATIVE (<2.0 mg/dL); URINE COLOR RED; URINE GLUCOSE (UA) NEGATIVE (NEGATIVE); URINE KETONE NEGATIVE (NEGATIVE); URINE LEUK ESTERASE NEGATIVE (NEGATIVE); URINE NITRITE NEGATIVE (NEGATIVE); URINE UROBILINOGEN NEGATIVE mg/dL (0.2-1.0)
[2018-08-09 00:32] LABS: URINE PROTEIN 2+ (NEGATIVE)
[2018-08-09] MEDS ORDERED: SODIUM CHLORIDE 0.9% 500 ML INFUS.BAG IV ONE (02:02)
[2018-08-09 02:38] VITALS: BP 107/52; PULSE 117
--- NOTE | 2018-08-09 15:34 | EKG ---
Test Reason : Blood Pressure : / mmHG Vent. Rate : 110 BPM Atrial Rate : 104 BPM P-R Int : 000 ms QRS Dur : 132 ms QT Int : 334 ms P-R-T Axes : 000 -86 070 degrees QTc Int : 452 ms ATRIAL FIBRILLATION WITH RAPID VENTRICULAR RESPONSE WITH PREMATURE VENTRICULAR OR ABERRANTLY CONDUCTED COMPLEXES LEFT AXIS DEVIATION RIGHT BUNDLE BRANCH BLOCK INFERIOR INFARCT (CITED ON OR BEFORE 23-JAN-2018) ABNORMAL ECG WHEN COMPARED WITH ECG OF 20-JUL-2018 09:36, NO SIGNIFICANT CHANGE WAS FOUND Confirmed by MD Jesus, Nirav ([id number]) on 08/09/2018 3:33:45 PM Referred By: Confirmed By:Nirav Lee MD
== END 2018-08-09 04:38 | disposition left against medical advice (07) ==
LOC: JER 22:04
PROC: 3E0337Z Introduction of Electrolytic and Water Balance Substance into Peripheral Vein, Percutaneous Approach (ICD-10-PCS; principal; 2018-08-08)
DX: I48.91 Unspecified atrial fibrillation (principal); Z79.01 Long term (current) use of anticoagulants; R31.0 Gross hematuria; I10 Essential (primary) hypertension; N40.0 Benign prostatic hyperplasia without lower urinary tract symptoms; D64.9 Anemia, unspecified; D69.6 Thrombocytopenia, unspecified; E78.00 Pure hypercholesterolemia, unspecified; C85.90 Non-Hodgkin lymphoma, unspecified, unspecified site
CPT/HCPCS: 36415; 76775-TC; 76856-TC; 80053; 81003; 81015; 85025; 85610; 86850; 86900; 86901; 87086; 93005; 93010; 96360; 99284-25

== ENCOUNTER 2018-08-14 13:11 | Inpatient (IN) | payer OTHER, MEDICARE ==
[2018-08-14 14:48] LABS: BASO % 0.2 % (0-2.0); HEMATOCRIT 25.3 % (35.4-49); HEMOGLOBIN 8.2 GM/dL (11.7-16.9); LYMPH % 24.3 % (8-40); MCH 29.6 pg (25.7-33.7); MCHC 32.4 g/dl (32.0-35.9); MEAN CELL VOLUME 91.4 fl (80-96); MEAN PLT VOLUME 10.6 fl (7.5-11.1); NEUT % 71.5 % (42.8-82.8); PLATELET COUNT 175 K/MM3 (134-434); RBC 2.77 M/mm3 (4.00-5.60); RDW 20.1 % (11.9-15.9); WHITE BLOOD COUNT 11.1 K/mm3 (4.0-10.0)
[2018-08-14] MEDS ORDERED: SODIUM CHLORIDE 0.9% 1000 ML INFUS.BAG IV STA (14:59)
[2018-08-14 15:07] LABS: INR 1.22 (0.83-1.09); PROTHROMBIN TIME (PATIENT) 13.8 SEC (9.7-13.0)
[2018-08-14 15:09] LABS: ACTIVATED PTT 28.6 SECONDS (25.2-36.5)
[2018-08-14 15:10] LABS: URINE APPEARANCE CLOUDY; URINE BILIRUBIN NEGATIVE (<2.0 mg/dL); URINE COLOR RED; URINE GLUCOSE (UA) NEGATIVE (NEGATIVE); URINE KETONE NEGATIVE (NEGATIVE); URINE NITRITE NEGATIVE (NEGATIVE); URINE UROBILINOGEN NEGATIVE mg/dL (0.2-1.0)
[2018-08-14 15:12] LABS: URINE LEUK ESTERASE 1+ (NEGATIVE); URINE PROTEIN 2+ (NEGATIVE)
[2018-08-14 15:16] LABS: ALBUMIN 1.7 g/dl (3.4-5.0); ALK PHOS 89 U/L (45-117); ANION GAP 7 MMOL/L (8-16); BILIRUBIN,TOTAL 0.6 mg/dL (0.2-1); BLOOD UREA NITROGEN 52 mg/dL (7-18); CALCIUM 7.5 mg/dL (8.5-10.1); CHLORIDE 106 mmol/L (98-107); CO2 29 mmol/L (21-32); CREATININE 3.4 mg/dL (0.55-1.3); GLUCOSE,RANDOM 97 mg/dL (74-106); POTASSIUM 3.3 mmol/L (3.5-5.1); SGOT/AST 22 U/L (15-37); SGPT/ALT 21 U/L (13-61); SODIUM 142 mmol/L (136-145); TOT PROT 5.2 g/dl (6.4-8.2)
--- NOTE | 2018-08-14 15:32 | PDOC ---
Attending Attestation - HPI HPI: 08/14/18 16:39 The patient is a 87 year old male, with a significant PMH of non-Hodgkin's lymphoma, atrial fibrillation, hypertension, BPH, anemia, mesenteric ischemia status post exploratory laparoscopy with bowel resection, who presents to the emergency department for evaluation s/p witnessed syncopal episode at home prior to arrival. The patient endorses generalized weakness and lightheadedness prior to the syncopal episode. The patient denies chest pain, shortness of breath, headache. Denies fever, chills, nausea, vomit, diarrhea and constipation. Denies dysuria, frequency, urgency and hematuria. Allergies: warfarin sodium PCP: Dr Camilo Coronado - Physicial Exam PE: 08/14/18 15:50 Vitals: Triage vital signs reviewed General Appearance: No acute distress, well nourished, well developed Head: (+) Ecchymosis and hematoma around the left eye. (+) Abrasion lateral to the left eye and above the eye. Neck: Supple; No nuchal rigidity Chest Wall: Nontender Cardiac: Regular rate and rhythm, no murmurs, no rubs, no gallops Lungs: Clear to auscultation bilateral, good air movement bilaterally Abdomen: Soft, nondistended, normal bowel sounds, nontender to palpation Rectal: Exam deferred Extremities: Full range of motion to all extremities, no cyanosis, clubbing, or edema Skin: (+) Multiple areas of bruising and ecchymosis. Neuro: AOX3; Cranial Nerves 2-12 grossly intact, Strength intact to all extremities, Sensation intact to all extremities Psych: Normal mood, normal affect - Medical Decision Making 08/14/18 16:41 Patient is a 87 year old male, with history of non-Hodgkin's lymphoma, atrial fibrillation, hypertension, BPH, anemia, mesenteric ischemia status post exploratory laparoscopy with bowel resection, presents to the emergency department for evaluation s/p witnessed syncopal episode at home prior to arrival. Plan: Labs/ Blood work, EKG, Meds, CXR. <Mahad Malik - Last Filed: 08/14/18 16:39> - Resident Resident Name: Silvano Overton - ED Attending Attestation I have performed the following: I have examined & evaluated the patient, The case was reviewed & discussed with the resident, I agree w/resident's findings & plan, Exceptions are as noted - Medical Decision Making 08/14/18 18:11 History examination consistent with sepsis likely urine as source from recently placed Resendiz catheter Patient has known hematuria is scheduled for outpatient cystoscopy Goals of care discussed with patient patient states at this time he would like to be full code IV fluids ordered broad-spectrum antibiotics ordered we'll admit to medicine for further management. <Alberto Lucas - Last Filed: 08/14/18 18:27> Heart Score/ECG Review - ECG Impressions Comment:: 08/14/18 18:10 A. fib with RVR 112 right bundle-branch block, inferior infarct age indeterminate. Interpreted by me. <Alberto Lucas - Last Filed: 08/14/18 18:27> Attestations - Attestations 08/14/18 15:51 Documentation prepared by Mahad Malik, acting as medical payment poster for Alberto Lucas MD. <Mahad Malik - Last Filed: 08/14/18 16:39>
[2018-08-14] MEDS ORDERED: PIPERACILLIN/TAZOB 3.375 GM 3.375 GM in DEXTROSE 5%-WATER - 50 ML IVPB ONE (15:33)
--- NOTE | 2018-08-14 16:22 | PDOC ---
History of Present Illness - General Chief Complaint: Syncope/Near Syncope Stated Complaint: Syncope/Fall Time Seen by Provider: 08/14/18 13:32 - History of Present Illness Initial Comments: 08/14/18 16:21 87 y/o male with PMH of Non Hodgkin's lymphoma, afib (on Eliquis), HTN, BPH, anemia, mesenteric ischemia (s/p ex lap w/ small bowel resection (01/23/18)), ileus, chronic venostasis, recently seen in our ED for hematuria 08/08/18, p/w witnessed syncopal episode at home. Pt says he has been feeling weak and lightheaded for the past week and has had multiple times where he needed to sit down to rest. Yesterday and today he had an episode of passing out while standing after feeling lightheaded and weak. Unclear how long he had LOC. denies any fever, chills , sob, cp, abd pain, dysuria, n/v/d, blood in stools, prodromal sxs, dizziness, palpitations, postictal confusion, tounge biting or other seizure like activity. PMH: as per HPI. F/w urology for hematuria w/u. Dr. Hu PCP, Dr. Durán cardio. Was told he had a small stroke/TIA? SH: denies etoh and drugs use. smoke quit 20 yr ago, was taking 1pck/day. pt lives at home and has home health aide. ambulates w/ cane. Past History - Past Medical History Allergies/Adverse Reactions: Allergies Allergy/AdvReac Type Severity Reaction Status Date / Time warfarin sodium Allergy Severe bleeding Verified 08/14/18 13:30 [From Coumadin] Home Medications: Ambulatory Orders Atorvastatin Ca [Lipitor] 20 mg PO HS 12/06/16 Furosemide [Lasix] 80 mg PO BID 12/06/16 Melatonin 5 mg PO HS 12/06/16 Metoprolol Succinate [Toprol XL -] 50 mg PO BID #60 tab.sr.24h 01/30/18 Ibrutinib [Imbruvica] 120 mg PO DAILY 06/20/18 Pantoprazole Sodium [Protonix -] 40 mg PO BID #60 tablet.ec 06/27/18 Allopurinol [Zyloprim -] 100 mg PO DAILY 08/08/18 Anemia: No Asthma: No Cancer: Yes (lymphoma non hodgkins) Cardiac Disorders: Yes (afib-CARDIOVERSION) CVA: No COPD: No CHF: No Dementia: No Diabetes: No GI Disorders: Yes (RECTAL BLEEDING;DIVERTICULOSIS) Disorders: Yes (hematuria) HTN: No Hypercholesterolemia: Yes Liver Disease: No Seizures: No Thyroid Disease: No - Surgical History Abdominal Surgery: Yes (HERNIA SX) Appendectomy: No Cardiac Surgery: No Cholecystectomy: Yes Lung Surgery: No Neurologic Surgery: No Orthopedic Surgery: No - Suicide/Smoking/Psychosocial Hx Smoking Status: No Smoking History: Never smoked Have you smoked in the past 12 months: No Number of Cigarettes Smoked Daily: 0 If you are a former smoker, when did you quit?: 2006 Cigars Per Day: 0 'Breaking Loose' booklet given: 08/23/15 Hx Alcohol Use: No Drug/Substance Use Hx: No Substance Use Type: None Hx Substance Use Treatment: No Review of Systems - Review of Systems Is the patient limited Ukrainian proficient: No Constitutional: Yes: See HPI HEENTM: Yes: See HPI Respiratory: Yes: See HPI Cardiac (ROS): Yes: See HPI ABD/GI: Yes: See HPI : Yes: See HPI Musculoskeletal: Yes: See HPI Integumentary: Yes: See HPI Neurological: Yes: See HPI Endocrine: Yes: See HPI Hematologic/Lymphatic: Yes: See HPI *Physical Exam - Vital Signs Last Vital Signs Temp Pulse Resp BP Pulse Ox 97.1 F L 112 H 18 97/64 95 08/14/18 15:07 08/14/18 13:13 08/14/18 13:13 08/14/18 13:13 08/14/18 14:38 - Physical Exam Comments: 08/14/18 16:38 General: NAD HEENT: multiple abrasions and bleeding sites on L forehead, hematoma on L eyebrow that drains blood on palpation, PERRLA, dry MM, tongue appears mildly blue, No erythema or exudates Cardio: irregular irregular S1 S2 no m/r/g Lung: CTAB Abd: Soft +BS NTND EXT: radial pulses/DP 2+ chronic venostasis changes : indwelling catheter draining blood in urine. MSK: strength intact skin: multiple bruising on hands and arms b/l. stage 1/2 ulcer on back Neuro" AOX3, grossly intact 08/14/18 17:13 ED Treatment Course - LABORATORY CBC & Chemistry Diagram: 08/14/18 14:31 08/14/18 14:31 - ADDITIONAL ORDERS Additional order review: Laboratory Results 08/14/18 08/14/18 08/14/18 14:56 14:31 14:31 PT with INR INR PTT (Actin FS) Sodium Potassium Chloride Carbon Dioxide Anion Gap BUN Creatinine Creat Clearance w eGFR Random Glucose Lactic Acid 3.9 H* Calcium Total Bilirubin AST ALT Alkaline Phosphatase Total Protein Albumin Urine Color Red Urine Appearance Cloudy Urine pH 6.0 Ur Specific [place] 1.013 Urine Protein 2+ H Urine Glucose (UA) Negative Urine Ketones Negative Urine Blood 2+ H Urine Nitrite Negative Urine Bilirubin Negative Urine Urobilinogen Negative Ur Leukocyte Esterase 1+ H Urine WBC (Auto) 258 Urine RBC (Auto) 4947 Blood Type O POSITIVE Antibody Screen Negative 08/14/18 08/14/18 14:31 14:31 PT with INR 13.80 H INR 1.22 H PTT (Actin FS) 28.6 Sodium 142 Potassium 3.3 L Chloride 106 Carbon Dioxide 29 Anion Gap 7 L BUN 52 H Creatinine 3.4 H Creat Clearance w eGFR 17.22 Random Glucose 97 Lactic Acid Calcium 7.5 L Total Bilirubin 0.6 AST 22 ALT 21 Alkaline Phosphatase 89 Total Protein 5.2 L Albumin 1.7 L Urine Color Urine Appearance Urine pH Ur Specific [place] Urine Protein Urine Glucose (UA) Urine Ketones Urine Blood Urine Nitrite Urine Bilirubin Urine Urobilinogen Ur Leukocyte Esterase Urine WBC (Auto) Urine RBC (Auto) Blood Type Antibody Screen 08/14/18 14:31 RBC 2.77 L MCV 91.4 MCHC 32.4 RDW 20.1 H MPV 10.6 Neutrophils % 71.5 Lymphocytes % 24.3 Monocytes % 4.0 Eosinophils % 0.0 Basophils % 0.2 - RADIOLOGY Radiology Studies Ordered: Category Date Time Status CERVICAL SPINE CT W/O CONTR [CT] Stat CT Scan 08/14/18 13:[address] WITHOUT CONTRAST [CT] Stat CT Scan 08/14/18 13:36 Completed CHEST X-RAY PORTABLE* [RAD] Stat Radiology 08/14/18 13:34 Taken - Medications Given in the ED: ED Medications Discontinued Medications Generic Name Dose Route Start Last Admin Trade Name Freq PRN Reason Stop Dose Admin Sodium Chloride 2,177 ml 08/14/18 14:59 08/14/18 15:17 Normal Saline - 30 ml/kg (2177 ml) 08/14/18 15:00 2,177 ml IV Administration ONCE STA Medical Decision Making - Medical Decision Making 08/14/18 16:43 87 y/o male with PMH of Non Hodgkin's lymphoma, afib (on Eliquis), HTN, BPH, anemia, mesenteric ischemia (s/p ex lap w/ small bowel resection (01/23/18)), ileus, chronic venostasis, recently seen in our ED for hematuria 08/08/18, p/w witnessed syncopal episode at home. Now found to have sepsis w/ possible urinary source sepsis w/ possible urinary source - tachycardia and hypotensive w/ indwelling catheter -Sepsis w/u -CBC, cmp, lactic, -IVF resuscitation -trop, ekg -cxr, head CT, neck CT -bcx, ucx, UA 08/14/18 16:48 -UA pos 1+ leuk, w/ WBC, lactic 3.9 -Zosyn - BP 90s systolic s/p 1L NS -c/w IVF -CT head shows no acute pathology -will admit to inpatient for severe sepsis 2/2 UTI c/b indwelling catheter Full Code *DC/Admit/Observation/Transfer Diagnosis at time of Disposition: Severe sepsis - Referrals Referrals: Camilo Coronado MD [Staff Physician] - - Patient Instructions - Post Discharge Activity
[2018-08-14] MEDS ORDERED: PIPERACILLIN/TAZOB 3.375 GM 3.375 GM/50 ML BAG IVPB ONE (16:45)
[2018-08-14] MEDS ORDERED: POTASSIUM CHLORIDE TABS 20 MEQ TABLET.ER (FP) PO ONE ×2 (17:28→17:39)
[2018-08-14 18:03] LABS: VENOUS PC02 41.6 mmHg (38-52); VENOUS PH 7.43 (7.32-7.42); VENOUS PO2 23.9 mmHg (28-48)
--- NOTE | 2018-08-14 21:34 | HP ---
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 Pt reports not feeling well for the past few days. He is unclear on the timeline of events but he reports falling this morning and does not recall events. ED note reflects the following events: Pt says he has been feeling weak and lightheaded for the past week and has had multiple times where he needed to sit down to rest. Yesterday and today he had an episode of passing out while standing after feeling lightheaded and weak. Unclear how long he had LOC. Of note, pt was evaluated here in the ED on 08/08 for hematuria and signed out AMA when admission was recommended due to low BP. He has a chamberlain catheter in place from home which is draining bloody urine. 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 cholecystectomy Social History: Smoking: quit 2005, 1/2 PPD prior Alcohol: pt denies Drugs: pt denies Family History: father age 74, CVA mother age 72, unk sister age 70, unk brother alive s/p CVA Allergies warfarin sodium [From Coumadin] Allergy (Severe, Verified 08/14/18 13:30) bleeding HOME MEDICATIONS: 3 Medication Instructions Recorded Atorvastatin Ca [Lipitor] 20 mg PO HS 12/06/16 Furosemide [Lasix] 80 mg PO BID 12/06/16 Melatonin 5 mg PO HS 12/06/16 Metoprolol Succinate [Toprol XL -] 50 mg PO BID #60 tab.sr.24h 01/30/18 Ibrutinib [Imbruvica] 120 mg PO DAILY 06/20/18 Pantoprazole Sodium [Protonix -] 40 mg PO BID #60 tablet.ec 06/27/18 Allopurinol [Zyloprim -] 100 mg PO DAILY 08/08/18 REVIEW OF SYSTEMS CONSTITUTIONAL: Present: generalized weakness, malaise Absent: fever, chills, diaphoresis, loss of appetite, weight change HEENT: Absent: rhinorrhea, nasal congestion, throat pain, throat swelling, difficulty swallowing, mouth swelling, ear pain, eye pain, visual changes CARDIOVASCULAR: Present: syncope Absent: chest pain, palpitations, irregular heart rate, lightheadedness, peripheral edema RESPIRATORY: Absent: cough, shortness of breath, dyspnea with exertion, orthopnea, wheezing, stridor, hemoptysis GASTROINTESTINAL: Absent: abdominal pain, abdominal distension, nausea, vomiting, diarrhea, constipation, melena, hematochezia GENITOURINARY: Present: hematuria Absent: dysuria, frequency, urgency, hesitancy, flank pain, genital pain MUSCULOSKELETAL: Absent: myalgia, arthralgia, joint swelling, back pain, neck pain SKIN: Absent: rash, itching, pallor HEMATOLOGIC/IMMUNOLOGIC: Absent: easy bleeding, easy bruising, lymphadenopathy, frequent infections ENDOCRINE: Absent: unexplained weight gain, unexplained weight loss, heat intolerance, cold intolerance NEUROLOGIC: Absent: headache, focal weakness or paresthesias, dizziness, unsteady gait, seizure, mental status changes, bladder or bowel incontinence PSYCHIATRIC: Absent: anxiety, depression, suicidal or homicidal ideation, hallucinations. PHYSICAL EXAMINATION Vital Signs - 24 hr 3 08/14/18 08/14/18 08/14/18 13:13 14:38 15:07 Temperature 97.8 F 97.1 F L Pulse Rate 112 H Pulse Rate [ Apical] Respiratory 18 Rate Blood Pressure 97/64 Blood Pressure [Arm] O2 Sat by Pulse 95 Oximetry (%) 3 08/14/18 18:20 Temperature Pulse Rate Pulse Rate [ 92 H Apical] Respiratory 18 Rate Blood Pressure Blood Pressure 93/52 L [Arm] O2 Sat by Pulse Oximetry (%) GENERAL: Awake, alert, and fully oriented, in no acute distress. HEAD: ecchymosis and abrasion left forehead, hematoma around left eye. abrasion below left eye EYES: Pupils equal, round and reactive to light, extraocular movements intact, sclera anicteric, conjunctiva clear. No lid lag. EARS, NOSE, THROAT: Ears normal, nares patent, oropharynx clear without exudates. Moist mucous membranes. NECK: Normal range of motion, supple without lymphadenopathy, JVD, or masses. LUNGS: Breath sounds equal, clear to auscultation bilaterally. No wheezes, and no crackles. No accessory muscle use. HEART: Regular rate and rhythm, normal S1 and S2 without murmur, rub or gallop. ABDOMEN: Soft, nontender, not distended, normoactive bowel sounds, no guarding, no rebound, no masses. No hepatomegaly or splenomegaly. chamberlain draining bloody urine MUSCULOSKELETAL: Normal range of motion at all joints. No bony deformities or tenderness. No CVA tenderness. UPPER EXTREMITIES: 2+ pulses, warm, well-perfused. No cyanosis. No clubbing. No peripheral edema. LOWER EXTREMITIES: 2+ pulses, warm, well-perfused. No calf tenderness. No peripheral edema. chronic vascular skin changes B/L LE: darkened, hypertrophic skin. NEUROLOGICAL: Cranial nerves II-XII intact. Normal speech. PSYCHIATRIC: Cooperative. Good eye contact. Appropriate mood and affect. SKIN: Warm, dry, normal turgor, no rashes or lesions noted, normal capillary refill. Laboratory Results - last 24 hr 3 08/14/18 08/14/18 08/14/18 13:34 14:31 14:31 WBC 11.1 H RBC 2.77 L Hgb 8.2 L Hct 25.3 L MCV 91.4 MCH 29.6 MCHC 32.4 RDW 20.1 H Plt Count 175 D MPV 10.6 Absolute Neuts (auto) 7.9 Neutrophils % 71.5 Lymphocytes % 24.3 Monocytes % 4.0 Eosinophils % 0.0 Basophils % 0.2 Nucleated RBC % 0 PT with INR 13.80 H INR 1.22 H PTT (Actin FS) 28.6 VBG pH POC VBG pCO2 POC VBG pO2 Mixed VBG HCO3 Sodium Potassium Chloride Carbon Dioxide Anion Gap BUN Creatinine Creat Clearance w eGFR Random Glucose Lactic Acid Calcium Total Bilirubin AST ALT Alkaline Phosphatase Troponin I 0.06 H Total Protein Albumin Urine Color Urine Appearance Urine pH Ur Specific [place] Urine Protein Urine Glucose (UA) Urine Ketones Urine Blood Urine Nitrite Urine Bilirubin Urine Urobilinogen Ur Leukocyte Esterase Urine WBC (Auto) Urine RBC (Auto) Blood Type Antibody Screen 3 08/14/18 08/14/18 08/14/18 14:31 14:31 14:31 WBC RBC Hgb Hct MCV MCH MCHC RDW Plt Count MPV Absolute Neuts (auto) Neutrophils % Lymphocytes % Monocytes % Eosinophils % Basophils % Nucleated RBC % PT with INR INR PTT (Actin FS) VBG pH POC VBG pCO2 POC VBG pO2 Mixed VBG HCO3 Sodium 142 Potassium 3.3 L Chloride 106 Carbon Dioxide 29 Anion Gap 7 L BUN 52 H Creatinine 3.4 H Creat Clearance w eGFR 17.22 Random Glucose 97 Lactic Acid 3.9 H* Calcium 7.5 L Total Bilirubin 0.6 AST 22 ALT 21 Alkaline Phosphatase 89 Troponin I Total Protein 5.2 L Albumin 1.7 L Urine Color Urine Appearance Urine pH Ur Specific [place] Urine Protein Urine Glucose (UA) Urine Ketones Urine Blood Urine Nitrite Urine Bilirubin Urine Urobilinogen Ur Leukocyte Esterase Urine WBC (Auto) Urine RBC (Auto) Blood Type O POSITIVE Antibody Screen Negative 3 08/14/18 08/14/18 08/14/18 14:56 17:30 17:30 WBC RBC Hgb Hct MCV MCH MCHC RDW Plt Count MPV Absolute Neuts (auto) Neutrophils % Lymphocytes % Monocytes % Eosinophils % Basophils % Nucleated RBC % PT with INR INR PTT (Actin FS) VBG pH 7.43 H POC VBG pCO2 41.6 D POC VBG pO2 23.9 L D Mixed VBG HCO3 27.2 H Sodium Potassium Chloride Carbon Dioxide Anion Gap BUN Creatinine Creat Clearance w eGFR Random Glucose Lactic Acid 2.8 H* Calcium Total Bilirubin AST ALT Alkaline Phosphatase Troponin I Total Protein Albumin Urine Color Red Urine Appearance Cloudy Urine pH 6.0 Ur Specific [place] 1.013 Urine Protein 2+ H Urine Glucose (UA) Negative Urine Ketones Negative Urine Blood 2+ H Urine Nitrite Negative Urine Bilirubin Negative Urine Urobilinogen Negative Ur Leukocyte Esterase 1+ H Urine WBC (Auto) 258 Urine RBC (Auto) 4947 Blood Type Antibody Screen ECG A. fib with RVR 112 right bundle-branch block, inferior infarct age indeterminate. Radiology Reports CT head Impression. No evidence of acute intracranial hemorrhage, edema, midline shift, mass effect , or skull fracture. No CT evidence of acute territorial infarction. Reported By: Yonas Barron MD 08/14/[address] cspine Impression. No acute bony abnormalities are seen. Intact odontoid. The predental space is not widened. Multilevel cervical spondylosis. Facet joint arthropathy. Osteoarthritis of uncovertebral joints. Degenerative subluxation of C7 in relation to T1, C6 Reported By: Yonas Barron MD 08/14/18 0591 ASSESSMENT/PLAN: 87yM with PMH NHL, aFIB, HTN, anemia, chronic venous stasis, PNA, BPH, mesenteric ischemia, diverticulsis, ileus presented to the ED after syncopal episode. Syncope - admit to tele - trend trops - cardiology consult Elevated troponin - ? demand ischemia r/t sepsis vs r/t JOON - trend HTN/HLD - cont home meds with hold parameters for toprol Sepsis secondary to UTI - given NS 2L in ED - given zosyn, ID consult - IFC changed - NS @75cc/hr - admit to tele JOON on CKD - baseline cr 1.5 - nephrology consult - repeat labs with second trop at 1030 anemia, likely due to hematuria - Hgb 8.2, monitor closely, transfuse if less than 7 NHL - cont home meds DVT PPX - heparin held due to hematuria FEN - NS @ 75cc/hr - BMP@2230 and in am - low sodium diet as tolerated Dispo: pt currently requires further inpatient management of his emergent condition. Visit type - Emergency Visit Emergency Visit: Yes ED Registration Date: 08/14/18 Care time: The patient presented to the Emergency Department on the above date and was hospitalized for further evaluation of their emergent condition. - New Patient This patient is new to me today: Yes Date on this admission: 08/14/18 - Critical Care Critical Care patient: No Hospitalist Screening - Colonoscopy Questionnaire Colonoscopy Questionnaire: Colonoscopy Questionnaire - Patient: 50 - 75 years old and never had a screening colonoscopy: No History of colon or rectal polyps, or CA: No History of IBD, Crohn's disease or UC: No History of abdominal radiation therapy as a child: No - Relative: 1 with colon or rectal CA, or polyps at age 60 or younger: No Colon or rectal CA diagnosed at age 45 or younger: No Multiple relatives with colon or rectal CA: No - Outcome: Screening Result: Negative Screen
[2018-08-14] MEDS ORDERED: HEPARIN NA (PORCINE) 5,000 UNITS/ML 1ML VIAL SQ SCH (22:00)
[2018-08-14] MEDS: PANTOPRAZOLE 40 MG TABLET (FP) PO SCH (22:09)
[2018-08-14] MEDS: MELATONIN 5 MG TABLETS PO SCH (22:09)
[2018-08-14] MEDS: ATORVASTATIN CA 20 MG TABLET (FP) PO SCH (22:09)
[2018-08-14] MEDS: SODIUM CHLORIDE 1,000 ML IV SCH (22:12)
[2018-08-14 23:52] LABS: ANION GAP 5 MMOL/L (8-16); BLOOD UREA NITROGEN 49 mg/dL (7-18); CHLORIDE 111 mmol/L (98-107); CO2 28 mmol/L (21-32); CREATININE 2.8 mg/dL (0.55-1.3); GLUCOSE,RANDOM 76 mg/dL (74-106); MAGNESIUM 1.8 mg/dL (1.8-2.4); POTASSIUM 3.9 mmol/L (3.5-5.1); SODIUM 144 mmol/L (136-145)
[2018-08-14 23:53] LABS: CALCIUM 6.8 mg/dL (8.5-10.1)
[2018-08-15 06:44] LABS: BASO % 0.4 % (0-2.0); EOS % 0.2 % (0-4.5); HEMATOCRIT 23.1 % (35.4-49); HEMOGLOBIN 7.6 GM/dL (11.7-16.9); LYMPH % 45.2 % (8-40); MCH 29.9 pg (25.7-33.7); MCHC 32.6 g/dl (32.0-35.9); MEAN CELL VOLUME 91.7 fl (80-96); MEAN PLT VOLUME 10.3 fl (7.5-11.1); MONO % 5.3 % (3.8-10.2); NEUT % 48.9 % (42.8-82.8); PLATELET COUNT 114 K/MM3 (134-434); RBC 2.52 M/mm3 (4.00-5.60); RDW 20.1 % (11.9-15.9); WHITE BLOOD COUNT 7.4 K/mm3 (4.0-10.0)
[2018-08-15 07:42] LABS: ANION GAP 5 MMOL/L (8-16); BLOOD UREA NITROGEN 45 mg/dL (7-18); CHLORIDE 112 mmol/L (98-107); CO2 28 mmol/L (21-32); CREATININE 2.6 mg/dL (0.55-1.3); GLUCOSE,RANDOM 79 mg/dL (74-106); POTASSIUM 3.6 mmol/L (3.5-5.1); SODIUM 145 mmol/L (136-145)
[2018-08-15] MEDS ORDERED: FUROSEMIDE 40 MG/4 ML INJECTABLE VIAL IVPUSH ONE (08:41)
[2018-08-15] MEDS ORDERED: IBRUTINIB PO SCH (10:00)
[2018-08-15] MEDS: ALLOPURINOL 100 MG TABLET (FP) PO SCH (10:12)
[2018-08-15] MEDS: PANTOPRAZOLE 40 MG TABLET (FP) PO SCH ×2 (10:12→22:24)
--- NOTE | 2018-08-15 10:17 | PN ---
Progress Note, Physician History of Present Illness: 87yM with PMH NHL, aFIB, HTN, anemia, chronic venous stasis, PNA, BPH, mesenteric ischemia, diverticulsis, ileus presented to the ED after syncopal episode. - Current Medication List Current Medications: Active Medications Allopurinol (Zyloprim -) 100 mg PO DAILY [facility] Last Admin: 08/15/18 10:12 Dose: 100 mg Atorvastatin Calcium (Lipitor -) 20 mg PO HS [facility] Last Admin: 08/14/18 22:09 Dose: 20 mg Sodium Chloride (Normal Saline -) 1,000 mls @ 75 mls/hr IV ASDIR [facility] Last Admin: 08/14/18 22:12 Dose: 75 mls/hr Melatonin (Melatonin) 5 mg PO HS [facility] Last Admin: 08/14/18 22:09 Dose: 5 mg Metoprolol Succinate (Toprol Xl -) 50 mg PO BID [facility] Last Admin: 08/15/18 10:12 Dose: 50 mg Non-Formulary Medication (Ibrutinib [Imbruvica]) 120 mg PO DAILY [facility] Pantoprazole Sodium (Protonix -) 40 mg PO BID [facility] Last Admin: 08/15/18 10:12 Dose: 40 mg - Objective Vital Signs: Vital Signs Temperature 98.9 F 08/15/18 05:40 Pulse Rate 104 H 08/15/18 05:40 Respiratory Rate 18 08/15/18 05:40 Blood Pressure 108/66 08/15/18 05:40 O2 Sat by Pulse Oximetry (%) 98 08/15/18 05:00 HENT: Yes: Other (brusing and abrasion over left temporal area) Cardiovascular: Yes: S1, S2 Respiratory: Yes: Regular, CTA Bilaterally Gastrointestinal: Yes: Normal Bowel Sounds, Soft Labs: CBC, BMP 08/15/18 05:30 08/15/18 05:30 INR, PTT INR 1.22 (0.83-1.09) H 08/14/18 14:31 Problem List - Problems (1) Syncope Assessment/Plan: - admit to tele - trend trops - cardiology consult Elevated troponin ? demand ischemia - monitor bp Code(s): R55 - SYNCOPE AND COLLAPSE (2) Sepsis Assessment/Plan: - secondary to UTI - given NS 2L in ED - given zosyn, ID consult - NS @75cc/hr - admit to tele Code(s): A41.9 - SEPSIS, UNSPECIFIED ORGANISM Qualifiers: Sepsis type: Escherichia coli Qualified Code(s): A41.51 - Sepsis due to Escherichia coli [E. coli] (3) Anemia Assessment/Plan: - anemia, likely due to hematuria - monitor closely, transfuse Code(s): D64.9 - ANEMIA, UNSPECIFIED Qualifiers: Anemia type: other cause Other causes of anemia: antineoplastic chemotherapy Qualified Code(s): D64.81 - Anemia due to antineoplastic chemotherapy; T45.1X5A - Adverse effect of antineoplastic and immunosuppressive drugs, initial encounter (4) Afib Code(s): I48.91 - UNSPECIFIED ATRIAL FIBRILLATION Qualifiers: Atrial fibrillation type: chronic Qualified Code(s): I48.2 - Chronic atrial fibrillation (5) Chronic kidney disease (CKD) Assessment/Plan: - baseline cr 1.5 - nephrology consult Code(s): N18.9 - CHRONIC KIDNEY DISEASE, UNSPECIFIED Qualifiers: Chronic kidney disease stage: stage 3 (moderate) Qualified Code(s): N18.3 - Chronic kidney disease, stage 3 (moderate) (6) Chronic lymphocytic leukemia (CLL), B-cell Code(s): C91.10 - CHRONIC LYMPHOCYTIC LEUK OF B-CELL TYPE NOT ACHIEVE REMIS Qualifiers: Leukemia Active/Remission status: in remission Qualified Code(s): C91.11 - Chronic lymphocytic leukemia of B-cell type in remission
--- NOTE | 2018-08-15 13:07 | CONSULT ---
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 Pt report fall wit head trauma with LOC. LOC for a few seconds. Denies any prodrome before fall. Was on Lasix BID at home. Leg edema has completely resolved. No CP, palpitations, SOB, N/V/D. No bowel or bladder incontiance. No flank pain. Has chronic chamberlain in place. In Tele currently, getting PRBC transfusion. PMHx: as above Allergies: NKDA Family hx: NC Social Hx: No T/A/D ROS: as per HPI Home Medications Medication Instructions Recorded Atorvastatin Ca [Lipitor] 20 mg PO HS 12/06/16 Furosemide [Lasix] 80 mg PO BID 12/06/16 Melatonin 5 mg PO HS 12/06/16 Metoprolol Succinate [Toprol XL -] 50 mg PO BID #60 tab.sr.24h 01/30/18 Ibrutinib [Imbruvica] 120 mg PO DAILY 06/20/18 Pantoprazole Sodium [Protonix -] 40 mg PO BID #60 tablet.ec 06/27/18 Allopurinol [Zyloprim -] 100 mg PO DAILY 08/08/18 Vital Signs Temperature 98.9 F 08/15/18 05:40 Pulse Rate 104 H 08/15/18 05:40 Respiratory Rate 18 08/15/18 05:40 Blood Pressure 108/66 08/15/18 05:40 O2 Sat by Pulse Oximetry (%) 98 08/15/18 05:00 Intake & Output 08/12/18 08/13/18 08/14/18 08/15/18 23:59 23:59 23:59 23:59 Intake Total 120 Output Total 500 Balance -380 Weight 72.575 kg 72.575 kg NAD on NC Left facial brusing, abrasion Neck supple, no JVD Dry MM RRR, No M/R CTA, no rales or wheeze No LE edema chamberlain in place no bladder distension CBC, BMP 08/15/18 05:30 08/15/18 05:30 Laboratory Tests 08/14/18 08/14/18 08/14/18 14:31 17:30 22:30 Lactic Acid 2.8 H* 1.6 Calcium Creatine Kinase Albumin 1.7 L 08/15/18 05:30 Lactic Acid Calcium 7.0 L Creatine Kinase 64 Albumin Current Medications Allopurinol (Zyloprim -) 100 mg PO DAILY [facility] Last Admin: 08/15/18 10:12 Dose: 100 mg Atorvastatin Calcium (Lipitor -) 20 mg PO HS [facility] Last Admin: 08/14/18 22:09 Dose: 20 mg Sodium Chloride (Normal Saline -) 1,000 mls @ 75 mls/hr IV ASDIR [facility] Last Admin: 08/14/18 22:12 Dose: 75 mls/hr Melatonin (Melatonin) 5 mg PO HS [facility] Last Admin: 08/14/18 22:09 Dose: 5 mg Metoprolol Succinate (Toprol Xl -) 50 mg PO BID [facility] Last Admin: 08/15/18 10:12 Dose: 50 mg Non-Formulary Medication (Ibrutinib [Imbruvica]) 120 mg PO DAILY [facility] Pantoprazole Sodium (Protonix -) 40 mg PO BID [facility] Last Admin: 08/15/18 10:12 Dose: 40 mg 87 year old gentleman known to our service with 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 #Syncope in setting of anemia and intravascular volume depletion #JOON secondary to volume depletion #Lactic acidosis #Leukocytosis #Urinary retention with chronic chamberlain #Hx of LE edema Renal function improving with isotonic saline Trend renal function daily no indication for [employer] avoid nephrotoxins, IV contrast at this time holding diuretics as pt appears to be volume deplete Lactic acidosis resolved f/u culture (blood and urine), no abx at this time continue chamberlain transfuse PRBC as per primary Thank you will follow Peewee Torres DO
[2018-08-15] MEDS: BACITRACIN 15 GM TUBE TOPICAL OINTMENT TP SCH ×2 (14:12→22:24)
--- NOTE | 2018-08-15 14:14 | CON.CARD ---
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 Pt report fall with head trauma and LOC for a few seconds. Reports positional light-headedness and weakness prodrome before fall. Was on Lasix BID at home. Chronic bilateral leg edema has completely resolved. No CP, palpitations, SOB, N/V/D. No bowel or bladder incontinence. No flank pain. Has chronic chamberlain in place. 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 No : Cirrhosis, Cholelithiasis, Cholecystitis, Choledocholithiasis, Hepatitis A, Hepatitis B, Hepatitis C Renal/: Yes: Renal Inusuff, BPH, Hematuria, Other (consideration for prostate procedure mentioned by ) Infectious Disease: Yes: Other (gram negative bacteremia, and gram negatives in urine). 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 History of Recent Travel: No Home Medications - Allergies Allergies/Adverse Reactions: Allergies Allergy/AdvReac Type Severity Reaction Status Date / Time warfarin sodium Allergy Severe bleeding Verified 08/14/18 13:30 [From Coumadin] - Home Medications Home Medications: Ambulatory Orders Atorvastatin Ca [Lipitor] 20 mg PO HS 12/06/16 Furosemide [Lasix] 80 mg PO BID 12/06/16 Melatonin 5 mg PO HS 12/06/16 Metoprolol Succinate [Toprol XL -] 50 mg PO BID #60 tab.sr.24h 01/30/18 Ibrutinib [Imbruvica] 120 mg PO DAILY 06/20/18 Pantoprazole Sodium [Protonix -] 40 mg PO BID #60 tablet.ec 06/27/18 Allopurinol [Zyloprim -] 100 mg PO DAILY 08/08/18 Family Disease History - Family Disease History Family Disease History: Heart Disease: Father (heart attack/stroke at 74), Other : Father, Mother ( 72 of aspiration), Brother (recent stroke in 80s, recovering) Review of Systems - Review of Systems Constitutional: reports: Lethargy, Weakness Eyes: reports: No Symptoms HENT: reports: Other (Facial trauma) Neck: reports: No Symptoms Cardiovascular: reports: No Symptoms Respiratory: reports: No Symptoms Gastrointestinal: reports: No Symptoms Genitourinary: reports: Other (Urinary retention) Musculoskeletal: reports: No Symptoms Integumentary: reports: No Symptoms Neurological: reports: Dizziness, Syncope, Weakness Endocrine: reports: No Symptoms Hematology/Lymphatic: reports: No Symptoms Vital Signs: Vital Signs Temperature 98.8 F 08/15/18 08:00 Pulse Rate 100 H 08/15/18 08:00 Respiratory Rate 20 08/15/18 08:00 Blood Pressure 100/68 08/15/18 08:00 O2 Sat by Pulse Oximetry (%) 98 08/15/18 08:30 Constitutional: Yes: No Distress, Calm, Thin HENT: Yes: Other (Left orbital trauma) Neck: Yes: Supple Respiratory: Yes: Regular, Diminished, On Nasal O2 Gastrointestinal: Yes: Normal Bowel Sounds, Soft Cardiovascular: Yes: Tachycardia, Pulse Irregular JVD: No Carotid Bruit: No Heart Sounds: Yes: S1, S2 Murmur: Yes: Systolic Murmur, Grade 2 Edema: No - Other Data Labs, Other Data: CBC, BMP 08/15/18 05:30 08/15/18 05:30 INR, PTT INR 1.22 (0.83-1.09) H 08/14/18 14:31 Troponin, BNP 08/14/18 08/14/18 08/15/18 13:34 22:30 05:30 Troponin I 0.06 H 0.05 0.05 Troponin, BNP 08/14/18 08/14/18 08/15/18 13:34 22:30 05:30 Troponin I 0.06 H 0.05 0.05 Afib @ 112 RVR RBBB inferior Qs c/w 06/21/2018, rate has increased Imaging - Results Chest X-ray: Report Reviewed (NAD) Cat Scan: Report Reviewed (No acute changes) Problem List - Problems (1) Syncope Code(s): R55 - SYNCOPE AND COLLAPSE Qualifiers: Syncope type: vasovagal syncope Qualified Code(s): R55 - Syncope and collapse (2) Acute kidney injury Code(s): N17.9 - ACUTE KIDNEY FAILURE, UNSPECIFIED (3) Anemia due to blood loss, acute Code(s): D62 - ACUTE POSTHEMORRHAGIC ANEMIA (4) Atrial fibrillation with rapid ventricular response Code(s): I48.91 - UNSPECIFIED ATRIAL FIBRILLATION (5) Chronic lymphocytic leukemia (CLL), B-cell Code(s): C91.10 - CHRONIC LYMPHOCYTIC LEUK OF B-CELL TYPE NOT ACHIEVE REMIS Qualifiers: Leukemia Active/Remission status: in remission Qualified Code(s): C91.11 - Chronic lymphocytic leukemia of B-cell type in remission (6) Hyperlipidemia Code(s): E78.5 - HYPERLIPIDEMIA, UNSPECIFIED Qualifiers: Hyperlipidemia type: pure hypercholesterolemia Qualified Code(s): E78.00 - Pure hypercholesterolemia, unspecified; E78.0 - Pure hypercholesterolemia (7) Mesenteric infarction Code(s): K55.069 - ACUTE INFARCTION OF INTESTINE, PART AND EXTENT UNSPECIFIED (8) TIA (transient ischemic attack) Code(s): G45.9 - TRANSIENT CEREBRAL ISCHEMIC ATTACK, UNSPECIFIED Qualifiers: Transient cerebral ischemia type: unspecified Qualified Code(s): G45.9 - Transient cerebral ischemic attack, unspecified (9) Urinary hesitancy Code(s): R39.11 - HESITANCY OF MICTURITION (10) Weakness due to cerebrovascular accident (CVA) Code(s): I63.9 - CEREBRAL INFARCTION, UNSPECIFIED; R53.1 - WEAKNESS Assessment/Plan Echo: 01/23/2018 Normal biventricular size and fxn, mild-mod TR, mild , mod LAE, mild [place] 1. Syncope in setting of anemia and intravascular volume depletion from overdiuresis 2. Anemia receiving pRBC with h/o gastrointestinal bleed related to ischemic colitis, angiodysplasias of the stomach and colon 2. CAD angina pectoris, stable 3. Diastolic LV dysfunction with chronic class 0-I NYHA classification LV failure, compensated/euvolemic 4. Persistent atrial fibrillation with periods of rapid ventricular response [id number] score of 6 on A/C now off DOAC's/Eliquis 5. History of CVA/TIA 6. HTN 7. Hypercholesterolemia 8. 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 History of recurrent diverticular bleed 10. Acute on CKD (pre-renal) referable to volume depletion from overdiuresis 11. History of hematuria, urinary retention with chronic chamberlain 12. History of CLL with anemia and thrombocytopenia 13. History of non Hodgkin's lymphoma PLAN: 1. IVF and transfuse pRBC with monitor renal recovery and electrolytes, holding diuretics in meantime 2. Resume Eliquis 2.5 bid once hemostasis achieved, continue Metoprolol 50 bid, Lipitor 20 qhs 3. Transfuse to maintain Hg equal or > 8.0 4. Soft diet, PPI per GI, not operative candidate per surgery 5. Thank you for consultative oppportunity
--- NOTE | 2018-08-15 14:55 | PN ---
Progress Note (short form) - Note Progress Note: ID Consult dictated S/P syncope UTI/possible sepsis secondary to UTI Lactic acidosis Renal insufficiency Pending c/s empiric zosyn
--- NOTE | 2018-08-15 16:25 | CONS ---
DATE OF CONSULTATION: DATE OF DICTATION: 08/15/2018 INFECTIOUS DISEASE CONSULTATION HISTORY OF PRESENT ILLNESS: The patient is an 87-year-old male who is evaluated for sepsis. He had apparently been seen in the emergency room on 08/08/2018 with gross hematuria, according to the notes he had left against medical advice after he was advised admission because of hypotension. He is now readmitted after having a syncopal episode at home resulting in facial trauma. On evaluation in the emergency room, CAT scan of the head was negative for infarct or bleed. His course was complicated by elevated white blood cell count and pyuria. He was empirically treated with Zosyn for possible sepsis secondary to UTI. He is awake and alert. He has no complaints. He denies any facial pain and no complaints of recent dysuria. He has a Resendiz catheter in place with grossly hemorrhagic urine. He denies any chest pain, shortness of breath, cough, or sputum production. PAST MEDICAL HISTORY: Positive for non-Hodgkin's lymphoma and history of CLL, atrial fibrillation, hypertension, BPH, history of mesenteric ischemia. PAST SURGICAL HISTORY: Status post exploratory laparotomy and bowel resection in January of 2018, history of cholecystectomy. ALLERGIES: COUMADIN. MEDICATION: Include Lipitor, Lasix, melatonin, Toprol, Imbruvica, Protonix, Zyloprim. SOCIAL HISTORY: Resides at home. No active tobacco or alcohol use. SYSTEMS REVIEW: Neurologic: As per HPI. Cardiac: Negative for chest pain or palpitations. Respiratory: Negative for cough or sputum production. Gastrointestinal: Negative vomiting or diarrhea. Genitourinary: As per HPI. LABORATORY DATA: White count 11.1, hematocrit 23.1, platelet count 114, BUN 45, creatinine 2.6, lactic acid 3.9, urinalysis white cells. PHYSICAL EXAMINATION: General: On exam, patient is awake and alert. He is weak appearing. Vital signs: Temperature 98.8, blood pressure 100/68, pulse 100 regular, respirations 20 per minute. HEENT: Sclerae anicteric. There is a large ecchymotic area present surrounding the left periorbital area. Cardiovascular: Heart sounds S1, S2. Lungs: Clear. Abdomen: Soft. Healed surgical scar. No tenderness elicited. No mass, rebound, or rigidity. Extremities: Negative for edema. Positive venous stasis dermatitis. IMPRESSION: 1. Status post syncope. 2. Urinary tract infection/possible sepsis secondary to urinary tract infection. 3. Lactic acidosis. 4. Renal insufficiency. Pending sepsis workup, empiric antibiotic coverage with Zosyn adjusted for renal insufficiency. Cardiology followup. Will follow. Thank you for the kind referral. SHAUNA MACARIO M.D. [id number]
[2018-08-15] MEDS ORDERED: PIPERACILLIN/TAZOBACTAM 2.25 GM VIAL IVPB ONE ×2 (17:19→22:08)
[2018-08-15] MEDS ORDERED: DEXTROSE 5%-WATER - 50 ML IVPB ONE ×2 (17:20→22:08)
[2018-08-15] MEDS: PIPERACILLIN/TAZOB 2.25 GM 2.25 GM in DEXTROSE 5%-WATER - 50 ML IVPB SCH (18:50)
[2018-08-15] MEDS: SODIUM CHLORIDE 1,000 ML IV SCH (22:23)
[2018-08-15] MEDS: MELATONIN 5 MG TABLETS PO SCH (22:24)
[2018-08-15] MEDS: ATORVASTATIN CA 20 MG TABLET (FP) PO SCH (22:24)
[2018-08-15] MEDS ORDERED: HALOPERIDOL LACTATE 5 MG/ML IM ONE (23:24)
--- NOTE | 2018-08-15 23:26 | RAPID ---
Physical Examination Vital Signs: Vital Signs Temperature 98.2 F 08/15/18 14:00 Pulse Rate 101 H 08/15/18 14:00 Respiratory Rate 18 08/15/18 14:00 Blood Pressure 108/54 L 08/15/18 14:00 O2 Sat by Pulse Oximetry (%) 98 08/15/18 08:30 Findings/Remarks: Rapid response called at 11:18pm. Patient was very agitated and combative toward the nursing staff. Patient too combative to examine Labs: CBC, BMP 08/15/18 05:30 08/15/18 05:30 Rapid Response - Rapid Response Assessment: Agitation -Most recent EKG reviewed, Corrected QTc with widened QRS is 480 (Bazet formula) -2mg Haldol IM ordered -Benefits of giving Haldol outwiegh the risks. -2gm of Mag Sulfate Hung to avoid torsade de pointes -Patient calmed down -Head CT ordered as patient was admitted for fall and want to rule out any new findings given his sudden combativeness
[2018-08-15] MEDS ORDERED: MAGNESIUM SULF 50% (8.12 MEQ/2 ML-1 GM VIAL) IVPB ONE (23:29)
[2018-08-16] MEDS: PIPERACILLIN/TAZOB 2.25 GM 2.25 GM in DEXTROSE 5%-WATER - 50 ML IVPB SCH ×3 (01:14→18:05)
[2018-08-16 08:09] LABS: INR 1.12 (0.83-1.09); PROTHROMBIN TIME (PATIENT) 13.2 SEC (9.7-13.0)
[2018-08-16 08:12] LABS: BASO % 0.3 % (0-2.0); EOS % 0.2 % (0-4.5); HEMATOCRIT 32.9 % (35.4-49); HEMOGLOBIN 10.6 GM/dL (11.7-16.9); LYMPH % 38.1 % (8-40); MCH 29.4 pg (25.7-33.7); MCHC 32.1 g/dl (32.0-35.9); MEAN CELL VOLUME 91.8 fl (80-96); MEAN PLT VOLUME 10.2 fl (7.5-11.1); MONO % 4.9 % (3.8-10.2); NEUT % 56.5 % (42.8-82.8); PLATELET COUNT 150 K/MM3 (134-434); RBC 3.59 M/mm3 (4.00-5.60); RDW 18.4 % (11.9-15.9); WHITE BLOOD COUNT 12.6 K/mm3 (4.0-10.0)
[2018-08-16 08:48] LABS: ALBUMIN 1.6 g/dl (3.4-5.0); ALK PHOS 99 U/L (45-117); ANION GAP 7 MMOL/L (8-16); BILIRUBIN,TOTAL 0.8 mg/dL (0.2-1); BLOOD UREA NITROGEN 40 mg/dL (7-18); CALCIUM 7.3 mg/dL (8.5-10.1); CHLORIDE 111 mmol/L (98-107); CO2 27 mmol/L (21-32); CREATININE 2.2 mg/dL (0.55-1.3); GLUCOSE,RANDOM 91 mg/dL (74-106); MAGNESIUM 2.3 mg/dL (1.8-2.4); PHOSPHOROUS 2.2 mg/dL (2.5-4.9); POTASSIUM 3.7 mmol/L (3.5-5.1); SGOT/AST 21 U/L (15-37); SGPT/ALT 19 U/L (13-61); SODIUM 144 mmol/L (136-145); TOT PROT 5.1 g/dl (6.4-8.2)
[2018-08-16] MEDS ORDERED: PIPERACILLIN/TAZOBACTAM 2.25 GM VIAL IVPB ONE ×2 (09:08→17:42)
[2018-08-16] MEDS ORDERED: DEXTROSE 5%-WATER - 50 ML IVPB ONE ×2 (09:08→17:43)
--- NOTE | 2018-08-16 10:34 | PN ---
Progress Note (short form) - Note Progress Note: Renal follow up for JOON on CKD Pt seen and examined in the hallway was confused overnight and agitated making urine via chamberlain has hematuria no sob, cp, abd pain Vital Signs Temperature 97.1 F L 08/16/18 09:12 Pulse Rate 106 H 08/16/18 09:12 Respiratory Rate 18 08/16/18 09:12 Blood Pressure 88/47 L 08/16/18 09:12 O2 Sat by Pulse Oximetry (%) 99 08/16/18 08:27 NAD confused No LE edema chamberlain with bloody urine CBC, BMP 08/16/18 07:30 08/16/18 07:30 Current Medications Allopurinol (Zyloprim -) 100 mg PO DAILY [facility] Last Admin: 08/15/18 10:12 Dose: 100 mg Atorvastatin Calcium (Lipitor -) 20 mg PO HS [facility] Last Admin: 08/15/18 22:24 Dose: 20 mg Bacitracin (Bacitracin -) 1 applic TP BID [facility] Last Admin: 08/15/18 22:24 Dose: 1 applic Sodium Chloride (Normal Saline -) 1,000 mls @ 75 mls/hr IV [facility] Last Admin: 08/15/18 22:23 Dose: 75 mls/hr Piperacillin Sod/Tazobactam (Sod 2.25 gm/ Dextrose) 50 mls @ 100 mls/hr IVPB Q8H-IV [facility]; Protocol Last Admin: 08/16/18 01:14 Dose: 100 mls/hr Melatonin (Melatonin) 5 mg PO HS [facility] Last Admin: 08/15/18 22:24 Dose: 5 mg Metoprolol Succinate (Toprol Xl -) 50 mg PO BID [facility] Last Admin: 08/15/18 22:24 Dose: 50 mg Non-Formulary Medication (Ibrutinib [Imbruvica]) 120 mg PO DAILY [facility] Pantoprazole Sodium (Protonix -) 40 mg PO BID [facility] Last Admin: 08/15/18 22:24 Dose: 40 mg 87 year old gentleman known to our service with 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 #Syncope in setting of anemia and intravascular volume depletion #JOON secondary to volume depletion #Lactic acidosis #Leukocytosis #Urinary retention with chronic chamberlain #Hx of LE edema Renal function improving continue isotonic saline holding diuretics urology follow up continue abx as needed trend renal function and electrolytes Peewee Torres DO
[2018-08-16] MEDS: BACITRACIN 15 GM TUBE TOPICAL OINTMENT TP SCH ×2 (11:40→21:15)
[2018-08-16] MEDS: ALLOPURINOL 100 MG TABLET (FP) PO SCH (11:41)
[2018-08-16] MEDS: PANTOPRAZOLE 40 MG TABLET (FP) PO SCH ×2 (11:41→21:16)
--- NOTE | 2018-08-16 11:42 | PN ---
Progress Note, Physician Chief Complaint: Events noted Not in distress (+) hematuria History of Present Illness: Patient was seen and examined. Awake and alert. Chart was reviewed Denies chest pain, SOB or palpitations - Current Medication List Current Medications: Active Medications Allopurinol (Zyloprim -) 100 mg PO DAILY [facility] Last Admin: 08/15/18 10:12 Dose: 100 mg Atorvastatin Calcium (Lipitor -) 20 mg PO HS [facility] Last Admin: 08/15/18 22:24 Dose: 20 mg Bacitracin (Bacitracin -) 1 applic TP BID [facility] Last Admin: 08/15/18 22:24 Dose: 1 applic Sodium Chloride (Normal Saline -) 1,000 mls @ 75 mls/hr IV ASDIR [facility] Last Admin: 08/15/18 22:23 Dose: 75 mls/hr Piperacillin Sod/Tazobactam (Sod 2.25 gm/ Dextrose) 50 mls @ 100 mls/hr IVPB Q8H-IV [facility]; Protocol Last Admin: 08/16/18 01:14 Dose: 100 mls/hr Melatonin (Melatonin) 5 mg PO HS [facility] Last Admin: 08/15/18 22:24 Dose: 5 mg Metoprolol Succinate (Toprol Xl -) 50 mg PO BID [facility] Last Admin: 08/15/18 22:24 Dose: 50 mg Non-Formulary Medication (Ibrutinib [Imbruvica]) 120 mg PO DAILY [facility] Pantoprazole Sodium (Protonix -) 40 mg PO BID [facility] Last Admin: 08/15/18 22:24 Dose: 40 mg - Objective Vital Signs: Vital Signs Temperature 97.1 F L 08/16/18 09:12 Pulse Rate 106 H 08/16/18 09:12 Respiratory Rate 18 08/16/18 09:12 Blood Pressure 88/47 L 08/16/18 09:12 O2 Sat by Pulse Oximetry (%) 99 08/16/18 08:27 Neck: Yes: Supple Cardiovascular: Yes: Pulse Irregular, S1, S2 Respiratory: Yes: Diminished Gastrointestinal: Yes: Normal Bowel Sounds, Soft. No: Tenderness Edema: No Labs: CBC, BMP 08/16/18 07:30 08/16/18 07:30 INR, PTT INR 1.12 (0.83-1.09) H 08/16/18 07:30 Problem List - Problems (1) Syncope Code(s): R55 - SYNCOPE AND COLLAPSE Qualifiers: Syncope type: vasovagal syncope Qualified Code(s): R55 - Syncope and collapse (2) Acute ischemic colitis Code(s): K55.039 - ACUTE ISCHEMIA OF LARGE INTESTINE, EXTENT UNSPECIFIED (3) Afib Code(s): I48.91 - UNSPECIFIED ATRIAL FIBRILLATION Qualifiers: Atrial fibrillation type: chronic Qualified Code(s): I48.2 - Chronic atrial fibrillation (4) Anemia Code(s): D64.9 - ANEMIA, UNSPECIFIED Qualifiers: Anemia type: other cause Other causes of anemia: antineoplastic chemotherapy Qualified Code(s): D64.81 - Anemia due to antineoplastic chemotherapy; T45.1X5A - Adverse effect of antineoplastic and immunosuppressive drugs, initial encounter (5) CLL (chronic lymphocytic leukemia) Code(s): C91.10 - CHRONIC LYMPHOCYTIC LEUK OF B-CELL TYPE NOT ACHIEVE REMIS (6) CVA (cerebrovascular accident) Code(s): I63.9 - CEREBRAL INFARCTION, UNSPECIFIED Qualifiers: CVA mechanism: embolism Precerebral and cerebral artery: middle cerebral artery, left (7) Chronic kidney disease (CKD) Code(s): N18.9 - CHRONIC KIDNEY DISEASE, UNSPECIFIED Qualifiers: Chronic kidney disease stage: stage 3 (moderate) Qualified Code(s): N18.3 - Chronic kidney disease, stage 3 (moderate) (8) Chronic lymphocytic leukemia (CLL), B-cell Code(s): C91.10 - CHRONIC LYMPHOCYTIC LEUK OF B-CELL TYPE NOT ACHIEVE REMIS Qualifiers: Leukemia Active/Remission status: in remission Qualified Code(s): C91.11 - Chronic lymphocytic leukemia of B-cell type in remission (9) Diverticulosis Code(s): K57.90 - DVRTCLOS OF INTEST, PART UNSP, W/O PERF OR ABSCESS W/O BLEED Qualifiers: Diverticulosis site: diverticulosis of small and large intestine Diverticulosis bleeding: diverticulosis without bleeding Qualified Code(s): K57.50 - Diverticulosis of both small and large intestine without perforation or abscess without bleeding (10) GIB (gastrointestinal bleeding) Code(s): K92.2 - GASTROINTESTINAL HEMORRHAGE, UNSPECIFIED Qualifiers: GI bleed type/associated pathology: unspecified gastrointestinal hemorrhage type Qualified Code(s): K92.2 - Gastrointestinal hemorrhage, unspecified (11) Hematuria Code(s): R31.9 - HEMATURIA, UNSPECIFIED Qualifiers: Hematuria type: gross Qualified Code(s): R31.0 - Gross hematuria (12) Hyperlipidemia Code(s): E78.5 - HYPERLIPIDEMIA, UNSPECIFIED Qualifiers: Hyperlipidemia type: pure hypercholesterolemia Qualified Code(s): E78.00 - Pure hypercholesterolemia, unspecified; E78.0 - Pure hypercholesterolemia (13) Sepsis Code(s): A41.9 - SEPSIS, UNSPECIFIED ORGANISM Qualifiers: Sepsis type: Escherichia coli Qualified Code(s): A41.51 - Sepsis due to Escherichia coli [E. coli] (14) Small bowel obstruction Code(s): K56.609 - UNSP INTESTNL OBST, UNSP TO PARTIAL VERSUS COMPLETE OBST (15) TIA (transient ischemic attack) Code(s): G45.9 - TRANSIENT CEREBRAL ISCHEMIC ATTACK, UNSPECIFIED Qualifiers: Transient cerebral ischemia type: unspecified Qualified Code(s): G45.9 - Transient cerebral ischemic attack, unspecified Assessment/Plan 1. Syncope in setting of anemia and intravascular volume depletion 2. 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 CAD angina pectoris, stable 3. Diastolic LV dysfunction with chronic class 0-I NYHA classification LV failure, compensated/euvolemic 4. Persistent atrial fibrillation with periods of rapid ventricular response [id number] score of 6 5. History of CVA/TIA 6. HTN 7. Hypercholesterolemia 8. 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 History of recurrent diverticular bleed 10. Acute on CKD (pre-renal) referable to volume depletion from overdiuresis 11. History of hematuria and urinary retention 12. History of CLL with anemia and thrombocytopenia 13. History of non Hodgkin's lymphoma PLAN: 1. IVF and transfuse PRBC. Monitor renal function 2. Resume Eliquis 2.5 bid once hemostasis achieved. Continue Metoprolol 50 bid and Lipitor 20 qhs 3. Transfuse to maintain Hgb equal or > 8.0 Juan Durán MD
--- NOTE | 2018-08-16 12:44 | PN ---
Progress Note, Physician - Current Medication List Current Medications: Active Medications Allopurinol (Zyloprim -) 100 mg PO DAILY [facility] Last Admin: 08/16/18 11:41 Dose: 100 mg Atorvastatin Calcium (Lipitor -) 20 mg PO HS [facility] Last Admin: 08/15/18 22:24 Dose: 20 mg Bacitracin (Bacitracin -) 1 applic TP BID [facility] Last Admin: 08/16/18 11:40 Dose: 1 applic Sodium Chloride (Normal Saline -) 1,000 mls @ 75 mls/hr IV [facility] Last Admin: 08/15/18 22:23 Dose: 75 mls/hr Piperacillin Sod/Tazobactam (Sod 2.25 gm/ Dextrose) 50 mls @ 100 mls/hr IVPB Q8H-IV [facility]; Protocol Last Admin: 08/16/18 11:41 Dose: 100 mls/hr Melatonin (Melatonin) 5 mg PO HS [facility] Last Admin: 08/15/18 22:24 Dose: 5 mg Metoprolol Succinate (Toprol Xl -) 50 mg PO BID [facility] Last Admin: 08/16/18 12:07 Dose: Not Given Non-Formulary Medication (Ibrutinib [Imbruvica]) 120 mg PO DAILY [facility] Pantoprazole Sodium (Protonix -) 40 mg PO BID [facility] Last Admin: 08/16/18 11:41 Dose: Not Given - Objective Vital Signs: Vital Signs Temperature 97.1 F L 08/16/18 09:12 Pulse Rate 106 H 08/16/18 09:12 Respiratory Rate 18 08/16/18 09:12 Blood Pressure 88/47 L 08/16/18 09:12 O2 Sat by Pulse Oximetry (%) 99 08/16/18 08:27 Cardiovascular: Yes: S1, S2 Respiratory: Yes: Regular, CTA Bilaterally Gastrointestinal: Yes: Normal Bowel Sounds, Soft Labs: CBC, BMP 08/16/18 07:30 08/16/18 07:30 INR, PTT INR 1.12 (0.83-1.09) H 08/16/18 07:30 Problem List - Problems (1) Syncope Assessment/Plan: - admit to tele - trend trops - cardiology consult Elevated troponin ? demand ischemia - monitor bp Code(s): R55 - SYNCOPE AND COLLAPSE Qualifiers: Syncope type: vasovagal syncope Qualified Code(s): R55 - Syncope and collapse (2) Sepsis Assessment/Plan: - secondary to UTI - given NS 2L in ED - given zosyn, ID consult - admit to tele Code(s): A41.9 - SEPSIS, UNSPECIFIED ORGANISM Qualifiers: Sepsis type: Escherichia coli Qualified Code(s): A41.51 - Sepsis due to Escherichia coli [E. coli] (3) Anemia Assessment/Plan: - anemia, likely due to hematuria - monitor closely, transfuse Code(s): D64.9 - ANEMIA, UNSPECIFIED Qualifiers: Anemia type: other cause Other causes of anemia: antineoplastic chemotherapy Qualified Code(s): D64.81 - Anemia due to antineoplastic chemotherapy; T45.1X5A - Adverse effect of antineoplastic and immunosuppressive drugs, initial encounter (4) Afib Code(s): I48.91 - UNSPECIFIED ATRIAL FIBRILLATION Qualifiers: Atrial fibrillation type: chronic Qualified Code(s): I48.2 - Chronic atrial fibrillation (5) Chronic kidney disease (CKD) Assessment/Plan: - baseline cr 1.5 - nephrology consult Code(s): N18.9 - CHRONIC KIDNEY DISEASE, UNSPECIFIED Qualifiers: Chronic kidney disease stage: stage 3 (moderate) Qualified Code(s): N18.3 - Chronic kidney disease, stage 3 (moderate) (6) Chronic lymphocytic leukemia (CLL), B-cell Code(s): C91.10 - CHRONIC LYMPHOCYTIC LEUK OF B-CELL TYPE NOT ACHIEVE REMIS Qualifiers: Leukemia Active/Remission status: in remission Qualified Code(s): C91.11 - Chronic lymphocytic leukemia of B-cell type in remission
[2018-08-16] MEDS: SODIUM CHLORIDE 1,000 ML IV SCH (21:14)
[2018-08-16] MEDS: MELATONIN 5 MG TABLETS PO SCH (21:16)
[2018-08-16] MEDS: ATORVASTATIN CA 20 MG TABLET (FP) PO SCH (21:16)
--- NOTE | 2018-08-16 23:14 | EKG ---
Test Reason : Blood Pressure : / mmHG Vent. Rate : 101 BPM Atrial Rate : 110 BPM P-R Int : 000 ms QRS Dur : 120 ms QT Int : 392 ms P-R-T Axes : 000 -83 048 degrees QTc Int : 508 ms POOR DATA QUALITY, INTERPRETATION MAY BE ADVERSELY AFFECTED ATRIAL FIBRILLATION WITH RAPID VENTRICULAR RESPONSE WITH PREMATURE VENTRICULAR OR ABERRANTLY CONDUCTED COMPLEXES LEFT AXIS DEVIATION LOW VOLTAGE QRS RIGHT BUNDLE BRANCH BLOCK INFERIOR INFARCT (CITED ON OR BEFORE 23-JAN-2018) CANNOT RULE OUT ANTERIOR INFARCT , AGE UNDETERMINED ABNORMAL ECG WHEN COMPARED WITH ECG OF 14-AUG-2018 13:23, MINIMAL CRITERIA FOR ANTERIOR INFARCT ARE NOW PRESENT Confirmed by ROSEANNA ORONA, JOSH ([id number]) on 08/16/2018 11:14:28 PM Referred By: MISHA Confirmed By:JOSH CONDON MD
--- NOTE | 2018-08-16 23:15 | EKG ---
Test Reason : Blood Pressure : / mmHG Vent. Rate : 112 BPM Atrial Rate : 107 BPM P-R Int : 000 ms QRS Dur : 118 ms QT Int : 378 ms P-R-T Axes : 000 264 113 degrees QTc Int : 515 ms POOR DATA QUALITY, INTERPRETATION MAY BE ADVERSELY AFFECTED ATRIAL FIBRILLATION WITH RAPID VENTRICULAR RESPONSE WITH PREMATURE VENTRICULAR OR ABERRANTLY CONDUCTED COMPLEXES RIGHT BUNDLE BRANCH BLOCK INFERIOR INFARCT (CITED ON OR BEFORE 23-JAN-2018) ABNORMAL ECG WHEN COMPARED WITH ECG OF 08-AUG-2018 22:27, NONSPECIFIC T WAVE ABNORMALITY NOW EVIDENT IN INFERIOR LEADS Confirmed by JOSH CONDON MD ([id number]) on 08/16/2018 11:15:16 PM Referred By: Confirmed By:JOSH CONDON MD
[2018-08-17] MEDS ORDERED: PIPERACILLIN/TAZOBACTAM 2.25 GM VIAL IVPB ONE ×3 (02:01→17:17)
[2018-08-17] MEDS ORDERED: DEXTROSE 5%-WATER - 50 ML IVPB ONE ×3 (02:02→17:17)
[2018-08-17] MEDS: PIPERACILLIN/TAZOB 2.25 GM 2.25 GM in DEXTROSE 5%-WATER - 50 ML IVPB SCH ×3 (02:07→17:26)
[2018-08-17 07:23] LABS: BASO % 0.2 % (0-2.0); EOS % 0.1 % (0-4.5); HEMATOCRIT 28.8 % (35.4-49); HEMOGLOBIN 9.5 GM/dL (11.7-16.9); LYMPH % 35.6 % (8-40); MCH 30.3 pg (25.7-33.7); MCHC 32.9 g/dl (32.0-35.9); MEAN PLT VOLUME 10.4 fl (7.5-11.1); MONO % 5.3 % (3.8-10.2); NEUT % 58.8 % (42.8-82.8); PLATELET COUNT 116 K/MM3 (134-434); RBC 3.13 M/mm3 (4.00-5.60); RDW 17.7 % (11.9-15.9); WHITE BLOOD COUNT 10.2 K/mm3 (4.0-10.0)
[2018-08-17 09:03] LABS: ALBUMIN 1.4 g/dl (3.4-5.0); ALK PHOS 87 U/L (45-117); ANION GAP 3 MMOL/L (8-16); BLOOD UREA NITROGEN 33 mg/dL (7-18); CALCIUM 7.7 mg/dL (8.5-10.1); CHLORIDE 114 mmol/L (98-107); CO2 27 mmol/L (21-32); GLUCOSE,RANDOM 67 mg/dL (74-106); MAGNESIUM 2.2 mg/dL (1.8-2.4); POTASSIUM 3.9 mmol/L (3.5-5.1); SGOT/AST 17 U/L (15-37); SGPT/ALT 19 U/L (13-61); SODIUM 144 mmol/L (136-145); TOT PROT 4.6 g/dl (6.4-8.2)
[2018-08-17] MEDS: BACITRACIN 15 GM TUBE TOPICAL OINTMENT TP SCH ×2 (09:16→21:40)
[2018-08-17] MEDS: ALLOPURINOL 100 MG TABLET (FP) PO SCH (09:19)
[2018-08-17] MEDS: PANTOPRAZOLE 40 MG TABLET (FP) PO SCH ×2 (09:19→21:39)
--- NOTE | 2018-08-17 10:35 | PN ---
Progress Note, Physician Chief Complaint: Events noted Not in distress History of Present Illness: Patient was seen and examined. Awake and alert. Chart was reviewed Denies chest pain, SOB or palpitations - Current Medication List Current Medications: Active Medications Allopurinol (Zyloprim -) 100 mg PO DAILY [facility] Last Admin: 08/17/18 09:19 Dose: 100 mg Atorvastatin Calcium (Lipitor -) 20 mg PO HS [facility] Last Admin: 08/16/18 21:16 Dose: 20 mg Bacitracin (Bacitracin -) 1 applic TP BID [facility] Last Admin: 08/17/18 09:16 Dose: 1 applic Sodium Chloride (Normal Saline -) 1,000 mls @ 75 mls/hr IV ASDIR [facility] Last Admin: 08/16/18 21:14 Dose: 75 mls/hr Piperacillin Sod/Tazobactam (Sod 2.25 gm/ Dextrose) 50 mls @ 100 mls/hr IVPB Q8H-IV [facility]; Protocol Last Admin: 08/17/18 09:19 Dose: 100 mls/hr Melatonin (Melatonin) 5 mg PO HS [facility] Last Admin: 08/16/18 21:16 Dose: 5 mg Metoprolol Succinate (Toprol Xl -) 50 mg PO BID [facility] Last Admin: 08/17/18 09:19 Dose: 50 mg Non-Formulary Medication (Ibrutinib [Imbruvica]) 120 mg PO DAILY [facility] Pantoprazole Sodium (Protonix -) 40 mg PO BID [facility] Last Admin: 08/17/18 09:19 Dose: 40 mg - Objective Vital Signs: Vital Signs Temperature 97.8 F 08/17/18 06:00 Pulse Rate 119 H 08/17/18 06:00 Respiratory Rate 20 08/17/18 06:00 Blood Pressure 111/50 L 08/17/18 06:00 O2 Sat by Pulse Oximetry (%) 98 08/16/18 21:00 Neck: Yes: Supple Cardiovascular: Yes: Pulse Irregular, Murmur, S1, S2 Respiratory: Yes: CTA Bilaterally Gastrointestinal: Yes: Normal Bowel Sounds, Soft. No: Tenderness Edema: No Labs: CBC, BMP 08/17/18 06:20 08/17/18 06:20 INR, PTT INR 1.12 (0.83-1.09) H 08/16/18 07:30 Problem List - Problems (1) Syncope Code(s): R55 - SYNCOPE AND COLLAPSE Qualifiers: Syncope type: vasovagal syncope Qualified Code(s): R55 - Syncope and collapse (2) Acute ischemic colitis Code(s): K55.039 - ACUTE ISCHEMIA OF LARGE INTESTINE, EXTENT UNSPECIFIED (3) Afib Code(s): I48.91 - UNSPECIFIED ATRIAL FIBRILLATION Qualifiers: Atrial fibrillation type: chronic Qualified Code(s): I48.2 - Chronic atrial fibrillation (4) Anemia Code(s): D64.9 - ANEMIA, UNSPECIFIED Qualifiers: Anemia type: other cause Other causes of anemia: antineoplastic chemotherapy Qualified Code(s): D64.81 - Anemia due to antineoplastic chemotherapy; T45.1X5A - Adverse effect of antineoplastic and immunosuppressive drugs, initial encounter (5) CLL (chronic lymphocytic leukemia) Code(s): C91.10 - CHRONIC LYMPHOCYTIC LEUK OF B-CELL TYPE NOT ACHIEVE REMIS (6) CVA (cerebrovascular accident) Code(s): I63.9 - CEREBRAL INFARCTION, UNSPECIFIED Qualifiers: CVA mechanism: embolism Precerebral and cerebral artery: middle cerebral artery, left (7) Chronic kidney disease (CKD) Code(s): N18.9 - CHRONIC KIDNEY DISEASE, UNSPECIFIED Qualifiers: Chronic kidney disease stage: stage 3 (moderate) Qualified Code(s): N18.3 - Chronic kidney disease, stage 3 (moderate) (8) Chronic lymphocytic leukemia (CLL), B-cell Code(s): C91.10 - CHRONIC LYMPHOCYTIC LEUK OF B-CELL TYPE NOT ACHIEVE REMIS Qualifiers: Leukemia Active/Remission status: in remission Qualified Code(s): C91.11 - Chronic lymphocytic leukemia of B-cell type in remission (9) Diverticulosis Code(s): K57.90 - DVRTCLOS OF INTEST, PART UNSP, W/O PERF OR ABSCESS W/O BLEED Qualifiers: Diverticulosis site: diverticulosis of small and large intestine Diverticulosis bleeding: diverticulosis without bleeding Qualified Code(s): K57.50 - Diverticulosis of both small and large intestine without perforation or abscess without bleeding (10) GIB (gastrointestinal bleeding) Code(s): K92.2 - GASTROINTESTINAL HEMORRHAGE, UNSPECIFIED Qualifiers: GI bleed type/associated pathology: unspecified gastrointestinal hemorrhage type Qualified Code(s): K92.2 - Gastrointestinal hemorrhage, unspecified (11) Hematuria Code(s): R31.9 - HEMATURIA, UNSPECIFIED Qualifiers: Hematuria type: gross Qualified Code(s): R31.0 - Gross hematuria (12) Hyperlipidemia Code(s): E78.5 - HYPERLIPIDEMIA, UNSPECIFIED Qualifiers: Hyperlipidemia type: pure hypercholesterolemia Qualified Code(s): E78.00 - Pure hypercholesterolemia, unspecified; E78.0 - Pure hypercholesterolemia (13) Sepsis Code(s): A41.9 - SEPSIS, UNSPECIFIED ORGANISM Qualifiers: Sepsis type: Escherichia coli Qualified Code(s): A41.51 - Sepsis due to Escherichia coli [E. coli] (14) Small bowel obstruction Code(s): K56.609 - UNSP INTESTNL OBST, UNSP TO PARTIAL VERSUS COMPLETE OBST (15) TIA (transient ischemic attack) Code(s): G45.9 - TRANSIENT CEREBRAL ISCHEMIC ATTACK, UNSPECIFIED Qualifiers: Transient cerebral ischemia type: unspecified Qualified Code(s): G45.9 - Transient cerebral ischemic attack, unspecified Assessment/Plan 1. Syncope in setting of anemia and intravascular volume depletion 2. 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 CAD angina pectoris, stable 3. Diastolic LV dysfunction with chronic class 0-I NYHA classification LV failure, compensated/euvolemic 4. Persistent atrial fibrillation with periods of rapid ventricular response [id number] score of 6 5. History of CVA/TIA 6. HTN 7. Hypercholesterolemia 8. 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 History of recurrent diverticular bleed 10. Acute on CKD (pre-renal) referable to volume depletion from overdiuresis 11. History of hematuria and urinary retention 12. History of CLL with anemia and thrombocytopenia 13. History of non Hodgkin's lymphoma PLAN: 1. IVF and transfuse PRBC. Monitor renal function 2. Resume Eliquis 2.5 bid once hemostasis achieved. Continue Metoprolol, Cardizem and Lipitor 3. Transfuse to maintain Hgb equal or > 8.0 Juan Durán MD
--- NOTE | 2018-08-17 11:07 | PN ---
Progress Note, Physician History of Present Illness: 87yM with PMH NHL, aFIB, HTN, anemia, chronic venous stasis, PNA, BPH, mesenteric ischemia, diverticulsis, ileus presented to the ED after syncopal episode. - Current Medication List Current Medications: Active Medications Allopurinol (Zyloprim -) 100 mg PO DAILY [facility] Last Admin: 08/17/18 09:19 Dose: 100 mg Atorvastatin Calcium (Lipitor -) 20 mg PO HS [facility] Last Admin: 08/16/18 21:16 Dose: 20 mg Bacitracin (Bacitracin -) 1 applic TP BID [facility] Last Admin: 08/17/18 09:16 Dose: 1 applic Sodium Chloride (Normal Saline -) 1,000 mls @ 75 mls/hr IV ASDIR [facility] Last Admin: 08/16/18 21:14 Dose: 75 mls/hr Piperacillin Sod/Tazobactam (Sod 2.25 gm/ Dextrose) 50 mls @ 100 mls/hr IVPB Q8H-IV [facility]; Protocol Last Admin: 08/17/18 09:19 Dose: 100 mls/hr Melatonin (Melatonin) 5 mg PO HS [facility] Last Admin: 08/16/18 21:16 Dose: 5 mg Metoprolol Succinate (Toprol Xl -) 50 mg PO BID [facility] Last Admin: 08/17/18 09:19 Dose: 50 mg Non-Formulary Medication (Ibrutinib [Imbruvica]) 120 mg PO DAILY [facility] Pantoprazole Sodium (Protonix -) 40 mg PO BID [facility] Last Admin: 08/17/18 09:19 Dose: 40 mg - Objective Vital Signs: Vital Signs Temperature 97.8 F 08/17/18 06:00 Pulse Rate 119 H 08/17/18 06:00 Respiratory Rate 20 08/17/18 06:00 Blood Pressure 111/50 L 08/17/18 06:00 O2 Sat by Pulse Oximetry (%) 98 08/16/18 21:00 Cardiovascular: Yes: Pulse Irregular, S1, S2 Respiratory: Yes: Regular, CTA Bilaterally Gastrointestinal: Yes: Normal Bowel Sounds, Soft Labs: CBC, BMP 08/17/18 06:20 08/17/18 06:20 INR, PTT INR 1.12 (0.83-1.09) H 08/16/18 07:30 Problem List - Problems (1) Syncope Assessment/Plan: - Tele no sig arrythmia -May have been from anemia - trend trops Laboratory Tests 08/14/18 08/15/18 22:30 05:30 Troponin I 0.05 0.05 - cardiology consult Elevated troponin ? demand ischemia - monitor bp Code(s): R55 - SYNCOPE AND COLLAPSE Qualifiers: Syncope type: vasovagal syncope Qualified Code(s): R55 - Syncope and collapse (2) Sepsis Assessment/Plan: - secondary to UTI - given NS 2L in ED - given zosyn, ID consult - lactic acid normalized Code(s): A41.9 - SEPSIS, UNSPECIFIED ORGANISM Qualifiers: Sepsis type: Escherichia coli Qualified Code(s): A41.51 - Sepsis due to Escherichia coli [E. coli] (3) Anemia Assessment/Plan: - anemia, likely due to hematuria - monitor closely, transfused prbc Code(s): D64.9 - ANEMIA, UNSPECIFIED Qualifiers: Anemia type: other cause Other causes of anemia: antineoplastic chemotherapy Qualified Code(s): D64.81 - Anemia due to antineoplastic chemotherapy; T45.1X5A - Adverse effect of antineoplastic and immunosuppressive drugs, initial encounter (4) Afib Code(s): I48.91 - UNSPECIFIED ATRIAL FIBRILLATION Qualifiers: Atrial fibrillation type: chronic Qualified Code(s): I48.2 - Chronic atrial fibrillation (5) Chronic kidney disease (CKD) Assessment/Plan: - baseline cr 1.5 - nephrology consult Code(s): N18.9 - CHRONIC KIDNEY DISEASE, UNSPECIFIED Qualifiers: Chronic kidney disease stage: stage 3 (moderate) Qualified Code(s): N18.3 - Chronic kidney disease, stage 3 (moderate) (6) Chronic lymphocytic leukemia (CLL), B-cell Code(s): C91.10 - CHRONIC LYMPHOCYTIC LEUK OF B-CELL TYPE NOT ACHIEVE REMIS Qualifiers: Leukemia Active/Remission status: in remission Qualified Code(s): C91.11 - Chronic lymphocytic leukemia of B-cell type in remission
[2018-08-17] MEDS: SODIUM CHLORIDE 1,000 ML IV SCH (16:27)
[2018-08-17] MEDS ORDERED: PT OWN MED DRAWER 7, Y5N ONE ×2 (21:29→21:52)
[2018-08-17] MEDS: MELATONIN 5 MG TABLETS PO SCH (21:39)
[2018-08-17] MEDS: ATORVASTATIN CA 20 MG TABLET (FP) PO SCH (21:39)
[2018-08-18] MEDS ORDERED: DEXTROSE 5%-WATER - 50 ML IVPB ONE ×3 (01:16→17:22)
[2018-08-18] MEDS ORDERED: PIPERACILLIN/TAZOBACTAM 2.25 GM VIAL IVPB ONE ×3 (01:16→17:21)
[2018-08-18] MEDS: SODIUM CHLORIDE 1,000 ML IV SCH ×3 (01:21→21:16)
[2018-08-18] MEDS: PIPERACILLIN/TAZOB 2.25 GM 2.25 GM in DEXTROSE 5%-WATER - 50 ML IVPB SCH ×3 (01:22→17:48)
--- NOTE | 2018-08-18 02:21 | HOSP ---
Subjective - Review of Symptoms Events since last encounter: Hospitalist Encounter Notified by RN that the patient's Resendiz catheter is not draining and that his diaper was soaked with bloody urine. Subjective: Arrived to bedside, patient is awake, alert and oriented x2, patient has no complaints, diaper and Resendiz catheter inspected. Had the RN irrigate the Resendiz gross hematuria noted in syringe, the RN rechecked the balloon for inflation. Physical Examination Vital Signs: Vital Signs Temperature 97.6 F 08/17/18 23:00 Pulse Rate 100 H 08/17/18 23:00 Respiratory Rate 20 08/17/18 23:00 Blood Pressure 98/69 08/17/18 23:00 O2 Sat by Pulse Oximetry (%) 100 08/17/18 21:00 Constitutional: Yes: No Distress, Calm Eyes: Yes: EOM Intact, PERRL, Other (Eccyhmotic bruising to L- orbit) HENT: Yes: Other (Eccyhmotic bruising to L- side of face, with superficial abrasions) Neck: Yes: WNL, Supple, Trachea Midline Cardiovascular: Yes: Pulse Irregular, S1, S2 Respiratory: Yes: WNL, Regular, CTA Bilaterally Gastrointestinal: Yes: Normal Bowel Sounds, Soft. No: Tenderness Renal/: Yes: Resendiz Present (bloody urine noted in drainage canister, no drainage in tubing), Hematuria. No: Bladder Distention Breast(s): Yes: WNL Musculoskeletal: Yes: WNL Extremities: Yes: WNL Neurological: Yes: Alert, Oriented (x2), Cran Nerves II-XII Intact Psychiatric: Yes: Alert Labs: CBC, BMP 08/17/18 06:20 08/17/18 06:20 Laboratory Results - last 24 hr 08/17/18 08/17/18 06:20 06:20 WBC 10.2 H RBC 3.13 L Hgb 9.5 L Hct 28.8 L MCV 92.0 MCH 30.3 MCHC 32.9 RDW 17.7 H Plt Count 116 L D MPV 10.4 Absolute Neuts (auto) 6.0 Neutrophils % 58.8 Lymphocytes % 35.6 Monocytes % 5.3 Eosinophils % 0.1 Basophils % 0.2 Nucleated RBC % 0 Sodium 144 Potassium 3.9 Chloride 114 H Carbon Dioxide 27 Anion Gap 3 L BUN 33 H Creatinine 2.0 H Creat Clearance w eGFR 31.76 Random Glucose 67 L Calcium 7.7 L Phosphorus 2.0 L Magnesium 2.2 Total Bilirubin 1.0 AST 17 ALT 19 Alkaline Phosphatase 87 Total Protein 4.6 L Albumin 1.4 L Current Medications Generic Name Dose Route Start Last Admin Trade Name Freq PRN Reason Stop Dose Admin Allopurinol 100 mg 08/15/18 10:00 08/17/18 09:19 Zyloprim - PO 100 mg DAILY [facility] Administration Atorvastatin Calcium 20 mg 08/14/18 22:00 08/17/18 21:39 Lipitor - PO 20 mg HS [facility] Administration Bacitracin 1 applic 08/15/18 13:15 08/17/18 21:40 Bacitracin - TP 1 applic BID [facility] Administration Sodium Chloride 1,000 mls @ 75 mls/hr 08/14/18 20:30 08/18/18 01:21 Normal Saline - IV 75 mls/hr ASDIR [facility] Administration Piperacillin Sod/Tazobactam 50 mls @ 100 mls/hr 08/15/18 18:00 08/18/18 01:22 Sod 2.25 gm/ Dextrose IVPB 100 mls/hr Q8H-IV [facility] Administration Protocol Melatonin 5 mg 08/14/18 22:00 08/17/18 21:39 Melatonin PO 5 mg HS [facility] Administration Metoprolol Succinate 50 mg 08/14/18 22:00 08/17/18 21:39 Toprol Xl - PO 50 mg BID [facility] Administration Non-Formulary Medication 120 mg 08/15/18 10:00 Ibrutinib [Imbruvica] PO DAILY [facility] Pantoprazole Sodium 40 mg 08/14/18 22:00 08/17/18 21:39 Protonix - PO 40 mg BID [facility] Administration Intake & Output 08/15/18 08/16/18 08/17/18 08/18/18 23:59 23:59 23:59 23:59 Intake Total 980 2000 1860 Output Total 500 1300 300 Balance 773 979 3142 Weight 72.575 kg Hospitalist Encounter Assessment: 87 y/o man PMHx of: NHL, Afib, HTN, Anemia, Chronic Venous Stasis, PNA, BPH, Mesenteric Ischemia, Diverticulsis, Ileus presented to the ED after syncopal episode. Admitted for Syncope, Sepsis, Anemia secondary to Hematuria. Plan: Bladder US to verify Resendiz Placement Monitor urine output, diaper Will continue to monitor overnight RN to inform PCP of overnight events
[2018-08-18] MEDS: PANTOPRAZOLE 40 MG TABLET (FP) PO SCH ×2 (09:08→21:18)
[2018-08-18] MEDS: BACITRACIN 15 GM TUBE TOPICAL OINTMENT TP SCH ×2 (09:08→21:17)
[2018-08-18] MEDS: ALLOPURINOL 100 MG TABLET (FP) PO SCH (09:08)
[2018-08-18] MEDS ORDERED: PT OWN MED DRAWER 7, Y5N ONE (10:40)
--- NOTE | 2018-08-18 11:07 | PN ---
Progress Note, Physician History of Present Illness: OOB in chair No complaints offerred Afebrile WBC 10.2 Azotemia improved - Current Medication List Current Medications: Active Medications Allopurinol (Zyloprim -) 100 mg PO DAILY [facility] Last Admin: 08/18/18 09:08 Dose: 100 mg Atorvastatin Calcium (Lipitor -) 20 mg PO HS [facility] Last Admin: 08/17/18 21:39 Dose: 20 mg Bacitracin (Bacitracin -) 1 applic TP BID [facility] Last Admin: 08/18/18 09:08 Dose: 1 applic Sodium Chloride (Normal Saline -) 1,000 mls @ 75 mls/hr IV ASDIR [facility] Last Admin: 08/18/18 09:41 Dose: 75 mls/hr Piperacillin Sod/Tazobactam (Sod 2.25 gm/ Dextrose) 50 mls @ 100 mls/hr IVPB Q8H-IV [facility]; Protocol Last Admin: 08/18/18 09:40 Dose: 100 mls/hr Melatonin (Melatonin) 5 mg PO HS [facility] Last Admin: 08/17/18 21:39 Dose: 5 mg Metoprolol Succinate (Toprol Xl -) 50 mg PO BID [facility] Last Admin: 08/18/18 09:08 Dose: 50 mg Non-Formulary Medication (Ibrutinib [Imbruvica]) 120 mg PO DAILY [facility] Pantoprazole Sodium (Protonix -) 40 mg PO BID [facility] Last Admin: 08/18/18 09:08 Dose: 40 mg - Objective Vital Signs: Vital Signs Temperature 98.2 F 08/18/18 09:03 Pulse Rate 112 H 08/18/18 09:03 Respiratory Rate 18 08/18/18 09:03 Blood Pressure 106/70 08/18/18 09:03 O2 Sat by Pulse Oximetry (%) 100 08/17/18 21:00 Constitutional: Yes: No Distress Eyes: Yes: Other (+ L periorbital ecchymosis) Cardiovascular: Yes: Regular Rate and Rhythm, S1, S2 Respiratory: Yes: CTA Bilaterally Gastrointestinal: Yes: Normal Bowel Sounds, Soft. No: Tenderness Genitourinary: Yes: Other (+ gross hematuria) Edema: No Labs: CBC, BMP 08/17/18 06:20 08/17/18 06:20 INR, PTT INR 1.12 (0.83-1.09) H 08/16/18 07:30 Assessment/Plan S/P syncope UTI/ Gross hematuria Lactic acidosis- resolved Azotemia-improved Continue zosyn additional 24hr
--- NOTE | 2018-08-18 11:26 | PN ---
Progress Note, Physician History of Present Illness: Hematuria in chamberlain bag, rapid afib while ambulating with PT. - Current Medication List Current Medications: Active Medications Allopurinol (Zyloprim -) 100 mg PO DAILY [facility] Last Admin: 08/18/18 09:08 Dose: 100 mg Atorvastatin Calcium (Lipitor -) 20 mg PO HS [facility] Last Admin: 08/17/18 21:39 Dose: 20 mg Bacitracin (Bacitracin -) 1 applic TP BID [facility] Last Admin: 08/18/18 09:08 Dose: 1 applic Sodium Chloride (Normal Saline -) 1,000 mls @ 75 mls/hr IV ASDIR [facility] Last Admin: 08/18/18 09:41 Dose: 75 mls/hr Piperacillin Sod/Tazobactam (Sod 2.25 gm/ Dextrose) 50 mls @ 100 mls/hr IVPB Q8H-IV [facility]; Protocol Last Admin: 08/18/18 09:40 Dose: 100 mls/hr Melatonin (Melatonin) 5 mg PO HS [facility] Last Admin: 08/17/18 21:39 Dose: 5 mg Metoprolol Succinate (Toprol Xl -) 50 mg PO BID [facility] Last Admin: 08/18/18 09:08 Dose: 50 mg Non-Formulary Medication (Ibrutinib [Imbruvica]) 120 mg PO DAILY [facility] Pantoprazole Sodium (Protonix -) 40 mg PO BID [facility] Last Admin: 08/18/18 09:08 Dose: 40 mg - Objective Vital Signs: Vital Signs Temperature 98.2 F 08/18/18 09:03 Pulse Rate 112 H 08/18/18 09:03 Respiratory Rate 18 08/18/18 09:03 Blood Pressure 106/70 08/18/18 09:03 O2 Sat by Pulse Oximetry (%) 100 08/17/18 21:00 Constitutional: Yes: No Distress, Calm Neck: Yes: Supple Cardiovascular: Yes: Tachycardia, Pulse Irregular Respiratory: Yes: Regular, Diminished, On Nasal O2 Gastrointestinal: Yes: Normal Bowel Sounds, Soft Edema: No Labs: CBC, BMP 08/17/18 06:20 08/17/18 06:20 INR, PTT INR 1.12 (0.83-1.09) H 08/16/18 07:30 Problem List - Problems (1) Syncope Code(s): R55 - SYNCOPE AND COLLAPSE Qualifiers: Syncope type: vasovagal syncope Qualified Code(s): R55 - Syncope and collapse (2) Acute kidney injury Code(s): N17.9 - ACUTE KIDNEY FAILURE, UNSPECIFIED (3) Anemia due to blood loss, acute Code(s): D62 - ACUTE POSTHEMORRHAGIC ANEMIA (4) Atrial fibrillation with rapid ventricular response Code(s): I48.91 - UNSPECIFIED ATRIAL FIBRILLATION (5) Chronic lymphocytic leukemia (CLL), B-cell Code(s): C91.10 - CHRONIC LYMPHOCYTIC LEUK OF B-CELL TYPE NOT ACHIEVE REMIS Qualifiers: Leukemia Active/Remission status: in remission Qualified Code(s): C91.11 - Chronic lymphocytic leukemia of B-cell type in remission (6) Hyperlipidemia Code(s): E78.5 - HYPERLIPIDEMIA, UNSPECIFIED Qualifiers: Hyperlipidemia type: pure hypercholesterolemia Qualified Code(s): E78.00 - Pure hypercholesterolemia, unspecified; E78.0 - Pure hypercholesterolemia (7) Mesenteric infarction Code(s): K55.069 - ACUTE INFARCTION OF INTESTINE, PART AND EXTENT UNSPECIFIED (8) TIA (transient ischemic attack) Code(s): G45.9 - TRANSIENT CEREBRAL ISCHEMIC ATTACK, UNSPECIFIED Qualifiers: Transient cerebral ischemia type: unspecified Qualified Code(s): G45.9 - Transient cerebral ischemic attack, unspecified (9) Urinary hesitancy Code(s): R39.11 - HESITANCY OF MICTURITION (10) Weakness due to cerebrovascular accident (CVA) Code(s): I63.9 - CEREBRAL INFARCTION, UNSPECIFIED; R53.1 - WEAKNESS Assessment/Plan Echo: 01/23/2018 Normal biventricular size and fxn, mild-mod TR, mild , mod LAE, mild [place] 1. Syncope in setting of anemia and intravascular volume depletion from overdiuresis 2. Anemia receiving pRBC with h/o gastrointestinal bleed related to ischemic colitis, angiodysplasias of the stomach and colon 2. CAD angina pectoris, stable 3. Diastolic LV dysfunction with chronic class 0-I NYHA classification LV failure, compensated/euvolemic 4. Persistent atrial fibrillation with periods of rapid ventricular response [id number] score of 6 on A/C now off DOAC's/Eliquis 5. History of CVA/TIA 6. HTN 7. Hypercholesterolemia 8. 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 History of recurrent diverticular bleed 10. Acute on CKD (pre-renal) referable to volume depletion from overdiuresis 11. History of hematuria, urinary retention with chronic chamberlain 12. History of CLL with anemia and thrombocytopenia 13. History of non Hodgkin's lymphoma 14. UTI/gross hematuria PLAN: 1. IVF and transfuse pRBC with monitor renal recovery and electrolytes, holding diuretics in meantime 2. Resume Eliquis 2.5 bid once hematuria resolves, continue Metoprolol 50 bid, Lipitor 20 qhs, add Cardizem CD 120 qd for improved rate-control 3. Transfuse to maintain Hg equal or > 8.0 4. Empiric zosyn per ID
--- NOTE | 2018-08-18 12:08 | PN ---
Progress Note, Physician Chief Complaint: Sepsis Hematuria Anemia History of Present Illness: NAD sitting in chair, eating lunch Indwelling chamberlain cath +hematuria Anemia stable - Current Medication List Current Medications: Active Medications Allopurinol (Zyloprim -) 100 mg PO DAILY [facility] Last Admin: 08/18/18 09:08 Dose: 100 mg Amino Acids (Prosource No Carb Liquid Pkt) 30 ml PO BID@0800,1730 [facility] Atorvastatin Calcium (Lipitor -) 20 mg PO HS [facility] Last Admin: 08/17/18 21:39 Dose: 20 mg Bacitracin (Bacitracin -) 1 applic TP BID [facility] Last Admin: 08/18/18 09:08 Dose: 1 applic Diltiazem HCl (Cardizem Cd -) 120 mg PO DAILY [facility] Sodium Chloride (Normal Saline -) 1,000 mls @ 75 mls/hr IV ASDIR [facility] Last Admin: 08/18/18 09:41 Dose: 75 mls/hr Piperacillin Sod/Tazobactam (Sod 2.25 gm/ Dextrose) 50 mls @ 100 mls/hr IVPB Q8H-IV [facility]; Protocol Last Admin: 08/18/18 09:40 Dose: 100 mls/hr Melatonin (Melatonin) 5 mg PO HS [facility] Last Admin: 08/17/18 21:39 Dose: 5 mg Metoprolol Succinate (Toprol Xl -) 50 mg PO BID [facility] Last Admin: 08/18/18 09:08 Dose: 50 mg Mirtazapine (Remeron -) 7.5 mg PO HS [facility] Non-Formulary Medication (Ibrutinib [Imbruvica]) 120 mg PO DAILY [facility] Pantoprazole Sodium (Protonix -) 40 mg PO BID [facility] Last Admin: 08/18/18 09:08 Dose: 40 mg - Objective Vital Signs: Vital Signs Temperature 98.2 F 08/18/18 09:03 Pulse Rate 112 H 08/18/18 09:03 Respiratory Rate 18 08/18/18 09:03 Blood Pressure 106/70 08/18/18 09:03 O2 Sat by Pulse Oximetry (%) 100 08/17/18 21:00 Constitutional: Yes: No Distress, Calm, Cachectic Cardiovascular: Yes: Regular Rate and Rhythm Respiratory: Yes: Regular Gastrointestinal: Yes: Normal Bowel Sounds, Soft Musculoskeletal: Yes: Muscle Weakness Edema: No Peripheral Pulses WNL: Yes Neurological: Yes: Alert, Oriented Psychiatric: Yes: Alert Labs: CBC, BMP 08/17/18 06:20 08/17/18 06:20 INR, PTT INR 1.12 (0.83-1.09) H 08/16/18 07:30 Problem List - Problems (1) Afib Assessment/Plan: -Eliquis on hold due to hematuria -tele monitoring -Cardiology on board Code(s): I48.91 - UNSPECIFIED ATRIAL FIBRILLATION Qualifiers: Atrial fibrillation type: chronic Qualified Code(s): I48.2 - Chronic atrial fibrillation (2) Anemia Assessment/Plan: 12/20 to hematuria -Hold eliquis -Hg stable -Hematology consult placed Code(s): D64.9 - ANEMIA, UNSPECIFIED Qualifiers: Anemia type: other cause Other causes of anemia: antineoplastic chemotherapy Qualified Code(s): D64.81 - Anemia due to antineoplastic chemotherapy; T45.1X5A - Adverse effect of antineoplastic and immunosuppressive drugs, initial encounter (3) Chronic kidney disease (CKD) Assessment/Plan: at baseline now -monitor trend Code(s): N18.9 - CHRONIC KIDNEY DISEASE, UNSPECIFIED Qualifiers: Chronic kidney disease stage: stage 3 (moderate) Qualified Code(s): N18.3 - Chronic kidney disease, stage 3 (moderate) (4) Chronic lymphocytic leukemia (CLL), B-cell Code(s): C91.10 - CHRONIC LYMPHOCYTIC LEUK OF B-CELL TYPE NOT ACHIEVE REMIS Qualifiers: Leukemia Active/Remission status: in remission Qualified Code(s): C91.11 - Chronic lymphocytic leukemia of B-cell type in remission (5) Hematuria Assessment/Plan: -chamberlain cath -urology consult -UC negative -last U/S bladder showed blood clot in bladder -Previously refused cystoscopy Code(s): R31.9 - HEMATURIA, UNSPECIFIED Qualifiers: Hematuria type: gross Qualified Code(s): R31.0 - Gross hematuria Assessment/Plan see problem list physical therapy
[2018-08-18] MEDS ORDERED: IRON SUCROSE INJECTION 300 MG in SODIUM CHLORIDE 235 ML IVPB ONE (15:45)
--- NOTE | 2018-08-18 16:19 | CONSULT ---
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 He states that he does not recall exactlly what happened but he was speaking to a friend at this bedside at home when he suddenly lost consciousness. CT imaging was negative for acute bleed. Currently awake and alert. Denies CP,DE [place] FU[place],SOB, abdominal pain, nausea or vomiting. He is followed by Dr. Reyes at [facility] and has been on imbruvica for at least 6 mo. as per patient. 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 01/2018 cholecystectomy Social History: Smoking: quit 2005, 1/2 PPD prior Alcohol: pt denies Drugs: pt denies Family History: father age 74, CVA mother age 72, unkown sister age 70, unkown brother alive s/p CVA REVIEW OF SYSTEMS: CONSTITUTIONAL: Absent: fever, chills, diaphoresis, generalized weakness, malaise, loss of appetite, weight change HEENT: Absent: rhinorrhea, nasal congestion, throat pain, throat swelling, difficulty swallowing, mouth swelling, ear pain, eye pain, visual changes CARDIOVASCULAR: Absent: chest pain, syncope, palpitations, irregular heart rate, lightheadedness , peripheral edema RESPIRATORY: Absent: cough, shortness of breath, dyspnea with exertion, orthopnea, wheezing, stridor, hemoptysis GASTROINTESTINAL: Absent: abdominal pain, abdominal distension, nausea, vomiting, diarrhea, constipation, melena, hematochezia GENITOURINARY: Absent: dysuria, frequency, urgency, hesitancy, hematuria, flank pain, genital pain MUSCULOSKELETAL: Absent: myalgia, arthralgia, joint swelling, back pain, neck pain SKIN: Absent: rash, itching, pallor HEMATOLOGIC/IMMUNOLOGIC: Absent: easy bleeding, easy bruising, lymphadenopathy, frequent infections ENDOCRINE: Absent: unexplained weight gain, unexplained weight loss, heat intolerance, cold intolerance NEUROLOGIC: Absent: headache, focal weakness or paresthesias, dizziness, unsteady gait, seizure, mental status changes, bladder or bowel incontinence PSYCHIATRIC: Absent: anxiety, depression, suicidal or homicidal ideation, hallucinations. PHYSICAL EXAMINATION Vital Signs - 24 hr 08/17/18 08/17/18 08/17/18 17:00 21:00 23:00 Temperature 97.7 F 97.6 F Pulse Rate 107 H 100 H Respiratory 20 20 Rate Blood Pressure 99/66 98/69 O2 Sat by Pulse 100 Oximetry (%) 08/18/18 08/18/18 08/18/18 02:00 06:00 09:00 Temperature 97.9 F 98.2 F Pulse Rate 105 H 98 H Respiratory 20 20 Rate Blood Pressure 114/70 113/68 O2 Sat by Pulse 98 Oximetry (%) 08/18/18 08/18/18 08/18/18 09:03 12:26 14:00 Temperature 98.2 F 97.6 F Pulse Rate 112 H 111 H 100 H Respiratory 18 18 20 Rate Blood Pressure 106/70 100/60 116/70 O2 Sat by Pulse Oximetry (%) GENERAL: Awake, alert, NAD HEAD: ecchymosis and abrasion left forehead, hematoma around left eye. abrasion below left eye EYES: PERRLA,EOMI., sclera anicteric, conjunctiva clear. EARS, NOSE, THROAT: Moist mucous membranes. NECK: Supple without lymphadenopathy, JVD, or masses. LUNGS: CTAB. No wheezes, and no crackles. No accessory muscle use. HEART: Irregularly irregular, normal S1 and S2 without murmur, rub or gallop. ABDOMEN: Soft, NTND, NABS, no guarding, no rebound, no masses. No hepatomegaly or splenomegaly. UPPER EXTREMITIES: 2+ pulses, warm, well-perfused. No cyanosis. No clubbing. Cap refill No peripheral edema. LOWER EXTREMITIES: 2+ pulses, warm, well-perfused. No calf tenderness. No peripheral edema. NEUROLOGICAL: Cranial nerves II-XII intact. no facial droop. Normal speech. gait not observed. PSYCHIATRIC: Cooperative. Good eye contact. Appropriate mood and affect. SKIN: multiple bruising on extremities. Laboratory Results - last 24 hr 08/14/18 14:31 Blood Type O POSITIVE Antibody Screen Negative Crossmatch See Detail Active Medications Generic Name Dose Route Start Last Admin Trade Name Ayaanq PRN Reason Stop Dose Admin Allopurinol 100 mg 08/15/18 10:00 08/18/18 09:08 Zyloprim - PO 100 mg DAILY [facility] Administration Amino Acids 30 ml 08/18/18 17:30 Prosource No Carb Liquid Pkt PO BID@0800,1730 [facility] Atorvastatin Calcium 20 mg 08/14/18 22:00 08/17/18 21:39 Lipitor - PO 20 mg HS [facility] Administration Bacitracin 1 applic 08/15/18 13:15 08/18/18 09:08 Bacitracin - TP 1 applic BID [facility] Administration Diltiazem HCl 120 mg 08/18/18 11:45 08/18/18 12:25 Cardizem Cd - PO 120 mg DAILY [facility] Administration Sodium Chloride 1,000 mls @ 75 mls/hr 08/14/18 20:30 08/18/18 09:41 Normal Saline - IV 75 mls/hr ASDIR [facility] Administration Piperacillin Sod/Tazobactam 50 mls @ 100 mls/hr 08/15/18 18:00 08/18/18 09:40 Sod 2.25 gm/ Dextrose IVPB 100 mls/hr Q8H-IV [facility] Administration Protocol Iron Sucrose 300 mg/ Sodium 250 mls @ 250 mls/hr 08/18/18 15:45 Chloride IVPB 08/18/18 16:44 ONCE ONE Melatonin 5 mg 08/14/18 22:00 08/17/18 21:39 Melatonin PO 5 mg HS [facility] Administration Metoprolol Succinate 50 mg 08/14/18 22:00 08/18/18 09:08 Toprol Xl - PO 50 mg BID [facility] Administration Mirtazapine 7.5 mg 08/18/18 22:00 Remeron - PO HS [facility] Non-Formulary Medication 120 mg 08/15/18 10:00 Ibrutinib [Imbruvica] PO DAILY [facility] Pantoprazole Sodium 40 mg 08/14/18 22:00 08/18/18 09:08 Protonix - PO 40 mg BID [facility] Administration ASSESSMENT/PLAN: 87 year old male with a significant past medical history of 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 Thank you for this consultative opportunity. Problem List - Problems (1) Anemia Assessment/Plan: Most likely secondary acute blood loss with hematuria. * urology to follow. * will monitory H/H * standard transfusion thresholds. (2) Syncope Assessment/Plan: Most likely secondary to acute blood loss and volume depletion. * EKG * Echo pending. * Cardiology consult appreciated * Fall precautions. * Telemetry monitoring. (3) Afib Assessment/Plan: eliquis on hold 2/2 acute hematuria. * to be restarted once hematuria resolves. (4) Hematuria Assessment/Plan: Followed by urology Dr. Padilla. * Will check LDH/Uric acid (5) NHL (non-Hodgkin's lymphoma) Assessment/Plan: He is followed by Dr. Reyes at [facility]. * currently receiving Imbruvica.will continue * WIll check LDH/Uric acid. Visit type - Emergency Visit Emergency Visit: Yes ED Registration Date: 08/14/18 Care time: The patient presented to the Emergency Department on the above date and was hospitalized for further evaluation of their emergent condition. - New Patient This patient is new to me today: Yes Date on this admission: 08/19/18 - Critical Care Critical Care patient: No
--- NOTE | 2018-08-18 16:39 | PN ---
Progress Note (short form) - Note Progress Note: Renal follow up for JOON on CKD Pt seen and examined at the bedside no acute complaints no sob, cp, abd pain Vital Signs Temperature 97.6 F 08/18/18 14:00 Pulse Rate 100 H 08/18/18 14:00 Respiratory Rate 20 08/18/18 14:00 Blood Pressure 116/70 08/18/18 14:00 O2 Sat by Pulse Oximetry (%) 98 08/18/18 09:00 Intake & Output 08/15/18 08/16/18 08/17/18 08/18/18 23:59 23:59 23:59 23:59 Intake Total 980 2000 1860 900 Output Total 500 1300 300 400 Balance 006 736 1216 500 Weight 72.575 kg NAD confused No LE edema chamberlain with bloody urine CBC, BMP 08/17/18 06:20 08/17/18 06:20 Current Medications Allopurinol (Zyloprim -) 100 mg PO DAILY [facility] Last Admin: 08/18/18 09:08 Dose: 100 mg Amino Acids (Prosource No Carb Liquid Pkt) 30 ml PO BID@0800,1730 [facility] Atorvastatin Calcium (Lipitor -) 20 mg PO [facility] Last Admin: 08/17/18 21:39 Dose: 20 mg Bacitracin (Bacitracin -) 1 applic TP BID [facility] Last Admin: 08/18/18 09:08 Dose: 1 applic Diltiazem HCl (Cardizem Cd -) 120 mg PO DAILY [facility] Last Admin: 08/18/18 12:25 Dose: 120 mg Sodium Chloride (Normal Saline -) 1,000 mls @ 75 mls/hr IV ASDIR [facility] Last Admin: 08/18/18 09:41 Dose: 75 mls/hr Piperacillin Sod/Tazobactam (Sod 2.25 gm/ Dextrose) 50 mls @ 100 mls/hr IVPB Q8H-IV [facility]; Protocol Last Admin: 08/18/18 09:40 Dose: 100 mls/hr Iron Sucrose 300 mg/ Sodium (Chloride) 250 mls @ 250 mls/hr IVPB ONCE ONE Stop: 08/18/18 16:44 Melatonin (Melatonin) 5 mg PO HS [facility] Last Admin: 08/17/18 21:39 Dose: 5 mg Metoprolol Succinate (Toprol Xl -) 50 mg PO BID [facility] Last Admin: 08/18/18 09:08 Dose: 50 mg Mirtazapine (Remeron -) 7.5 mg PO HS [facility] Non-Formulary Medication (Ibrutinib [Imbruvica]) 120 mg PO DAILY [facility] Pantoprazole Sodium (Protonix -) 40 mg PO BID [facility] Last Admin: 08/18/18 09:08 Dose: 40 mg 87 year old gentleman known to our service with 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 #Syncope in setting of anemia and intravascular volume depletion #JOON secondary to volume depletion #Lactic acidosis #Leukocytosis #Urinary retention with chronic chamberlain #Hx of LE edema Renal function improving toward baseline can d/c IVF but would continue to hold diuretics Urology consult for hematuria Peewee Torres DO
[2018-08-18] MEDS: AMINO ACIDS/PROTEIN HYDROLYS 30 ML LIQUID.PKT PO SCH (17:48)
[2018-08-18] MEDS: ATORVASTATIN CA 20 MG TABLET (FP) PO SCH (21:17)
[2018-08-18] MEDS: MELATONIN 5 MG TABLETS PO SCH (21:17)
[2018-08-18] MEDS: MIRTAZAPINE 15 MG TABLET (FP) PO SCH (21:18)
--- NOTE | 2018-08-18 21:30 | PN ---
Teaching Attending Note Name of Resident: Bao Parada ATTENDING PHYSICIAN STATEMENT I saw and evaluated the patient. I reviewed the resident's note and discussed the case with the resident. I agree with the resident's findings and plan as documented. 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 He states that he does not recall exactlly what happened but he was speaking to a friend at this bedside at home when he suddenly lost consciousness. CT imaging was negative for acute bleed. 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 Urology follow up. P;latelets 116,000, PT/PTT 00normal will follow
[2018-08-19] MEDS ORDERED: LORazepam 2 MG/ML SDV VIAL ONE (00:55)
[2018-08-19] MEDS ORDERED: LORazepam 2 MG/ML SDV VIAL IVPUSH ONE (01:00)
[2018-08-19] MEDS ORDERED: PIPERACILLIN/TAZOBACTAM 2.25 GM VIAL IVPB ONE ×3 (01:51→16:45)
[2018-08-19] MEDS ORDERED: DEXTROSE 5%-WATER - 50 ML IVPB ONE ×3 (01:51→16:45)
[2018-08-19] MEDS: PIPERACILLIN/TAZOB 2.25 GM 2.25 GM in DEXTROSE 5%-WATER - 50 ML IVPB SCH ×3 (01:53→17:41)
[2018-08-19 07:58] LABS: BASO % 0.6 % (0-2.0); EOS % 0.8 % (0-4.5); HEMATOCRIT 30.9 % (35.4-49); LYMPH % 44.6 % (8-40); MCH 29.7 pg (25.7-33.7); MCHC 32.2 g/dl (32.0-35.9); MEAN CELL VOLUME 92.1 fl (80-96); MEAN PLT VOLUME 10.6 fl (7.5-11.1); MONO % 6.3 % (3.8-10.2); NEUT % 47.7 % (42.8-82.8); PLATELET COUNT 104 K/MM3 (134-434); RBC 3.35 M/mm3 (4.00-5.60); RDW 18.4 % (11.9-15.9); WHITE BLOOD COUNT 9.8 K/mm3 (4.0-10.0)
[2018-08-19 08:48] LABS: ALBUMIN 1.4 g/dl (3.4-5.0); ALK PHOS 90 U/L (45-117); ANION GAP 6 MMOL/L (8-16); BLOOD UREA NITROGEN 30 mg/dL (7-18); CHLORIDE 113 mmol/L (98-107); CO2 25 mmol/L (21-32); CREATININE 1.7 mg/dL (0.55-1.3); GLUCOSE,RANDOM 71 mg/dL (74-106); LDH 279 U/L (87-246); SGOT/AST 19 U/L (15-37); SGPT/ALT 18 U/L (13-61); SODIUM 143 mmol/L (136-145); TOT PROT 4.6 g/dl (6.4-8.2); URIC ACID 3.5 mg/dL (2.6-7.2)
--- NOTE | 2018-08-19 09:33 | PN ---
Progress Note (short form) - Note Progress Note: Chief Complaint: Events noted, notes reviewed, confused and disoriented in restraints, remains in atrial fibrillation History of Present Illness: Seen and examined on telemetry. Events noted, notes reviewed, confused and disoriented in restraints, remains in atrial fibrillation Echocardiography dated 01/23/2018 revealed normal bi-ventricular size and function, mild-moderate TR, mild , moderate LAE, mild HILTON Medications: Current Medications Allopurinol (Zyloprim -) 100 mg PO DAILY [facility] Last Admin: 08/18/18 09:08 Dose: 100 mg Amino Acids (Prosource No Carb Liquid Pkt) 30 ml PO BID@0800,1730 [facility] Last Admin: 08/18/18 17:48 Dose: 30 ml Atorvastatin Calcium (Lipitor -) 20 mg PO HS [facility] Last Admin: 08/18/18 21:17 Dose: 20 mg Bacitracin (Bacitracin -) 1 applic TP BID [facility] Last Admin: 08/18/18 21:17 Dose: 1 applic Diltiazem HCl (Cardizem Cd -) 120 mg PO DAILY [facility] Last Admin: 08/18/18 12:25 Dose: 120 mg Sodium Chloride (Normal Saline -) 1,000 mls @ 75 mls/hr IV ASDIR [facility] Last Admin: 08/18/18 21:16 Dose: 75 mls/hr Piperacillin Sod/Tazobactam (Sod 2.25 gm/ Dextrose) 50 mls @ 100 mls/hr IVPB Q8H-IV [facility]; Protocol Last Admin: 08/19/18 10:07 Dose: 100 mls/hr Melatonin (Melatonin) 5 mg PO [facility] Last Admin: 08/18/18 21:17 Dose: 5 mg Metoprolol Succinate (Toprol Xl -) 50 mg PO BID [facility] Last Admin: 08/18/18 21:18 Dose: 50 mg Mirtazapine (Remeron -) 7.5 mg PO [facility] Last Admin: 08/18/18 21:18 Dose: 7.5 mg Non-Formulary Medication (Ibrutinib [Imbruvica]) 120 mg PO DAILY [facility] Pantoprazole Sodium (Protonix -) 40 mg PO BID [facility] Last Admin: 08/18/18 21:18 Dose: 40 mg Review of Systems Unable to obtain Vital Signs: Last Vital Signs Temp Pulse Resp BP Pulse Ox 98 F 108 H 22 H 118/70 97 08/19/18 09:17 08/19/18 09:17 08/19/18 09:17 08/19/18 09:17 08/18/18 21:00 Intake & Output 08/16/18 08/17/18 08/18/18 08/19/18 23:59 23:59 23:59 23:59 Intake Total 1999 1860 2595 1270 Output Total 1300 300 400 700 Balance 700 1560 2195 570 Constitutional: No Distress, Calm Neck: Supple Negative JVD No Bruit Respiratory: Diminished Breath Sounds at the Bases Cardiovascular: S1 S2 Irregularly Irregular Grade 2/6 SM Gastrointestinal: Soft Benign Normal Bowel Sounds Ext: Trace-1+ Edema Labs: CBC, BMP 08/19/18 05:30 08/19/18 05:30 Assessment/Plan ASSESSMENT: 1. Syncope in setting of anemia and intravascular volume depletion from over- diuresis 2. Anemia with history of gastrointestinal bleed related to ischemic colitis, angiodysplasias of the stomach and colon 2. CAD angina pectoris, stable 3. Diastolic LV dysfunction with chronic class 0-I NYHA classification LV failure, clinically compensated/euvolemic 4. Persistent atrial fibrillation with periods of rapid ventricular response [id number] score of 6 of off DOAC's/Eliquis 5. History of CVA/TIA 6. HTN 7. Hypercholesterolemia 8. 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 History of recurrent diverticular bleed 10. Acute on CKD referable to volume depletion from over-diuresis 11. History of hematuria 12. History of CLL with anemia and thrombocytopenia 13. History of non Hodgkin's lymphoma PLAN: 1. Eliquis to be withheld at this point pending resolution of the above noted presentation (once hematuria resolves), half-way A/C is recommended considering the above noted co-morbidities unless it is absolutely contraindicated, alternative would be JEANETTE closure devise/Watchman device 2. Continue Metoprolol and Cardizem CD 3. Continue to hold Lasix and continue monitoring of renal function 4. Continue Lipitor 5. Transfuse to maintain Hg equal or > 8.0 Bouchra Lu M.D.
[2018-08-19 09:57] LABS: CALCIUM 6.9 mg/dL (8.5-10.1)
--- NOTE | 2018-08-19 12:06 | PN ---
Progress Note, Physician Chief Complaint: Sepsis Hematuria Anemia History of Present Illness: NAD sitting in chair, eating lunch Indwelling chamberlain cath +hematuria Anemia stable - Current Medication List Current Medications: Active Medications Allopurinol (Zyloprim -) 100 mg PO DAILY [facility] Last Admin: 08/18/18 09:08 Dose: 100 mg Amino Acids (Prosource No Carb Liquid Pkt) 30 ml PO BID@0800,1730 [facility] Last Admin: 08/18/18 17:48 Dose: 30 ml Atorvastatin Calcium (Lipitor -) 20 mg PO HS [facility] Last Admin: 08/18/18 21:17 Dose: 20 mg Bacitracin (Bacitracin -) 1 applic TP BID [facility] Last Admin: 08/18/18 21:17 Dose: 1 applic Diltiazem HCl (Cardizem Cd -) 120 mg PO DAILY [facility] Last Admin: 08/18/18 12:25 Dose: 120 mg Piperacillin Sod/Tazobactam (Sod 2.25 gm/ Dextrose) 50 mls @ 100 mls/hr IVPB Q8H-IV [facility]; Protocol Last Admin: 08/19/18 10:07 Dose: 100 mls/hr Melatonin (Melatonin) 5 mg PO [facility] Last Admin: 08/18/18 21:17 Dose: 5 mg Metoprolol Succinate (Toprol Xl -) 50 mg PO BID [facility] Last Admin: 08/18/18 21:18 Dose: 50 mg Mirtazapine (Remeron -) 7.5 mg PO [facility] Last Admin: 08/18/18 21:18 Dose: 7.5 mg Non-Formulary Medication (Ibrutinib [Imbruvica]) 120 mg PO DAILY [facility] Pantoprazole Sodium (Protonix -) 40 mg PO BID [facility] Last Admin: 08/18/18 21:18 Dose: 40 mg - Objective Vital Signs: Vital Signs Temperature 98 F 08/19/18 09:17 Pulse Rate 108 H 08/19/18 09:17 Respiratory Rate 22 H 08/19/18 09:17 Blood Pressure 118/70 08/19/18 09:17 O2 Sat by Pulse Oximetry (%) 97 08/18/18 21:00 Constitutional: Yes: Well Nourished, No Distress, Calm Cardiovascular: Yes: Pulse Irregular Respiratory: Yes: Regular Gastrointestinal: Yes: Normal Bowel Sounds, Soft Musculoskeletal: Yes: Muscle Weakness Neurological: Yes: Alert, Oriented Psychiatric: Yes: Alert, Oriented Labs: CBC, BMP 08/19/18 05:30 08/19/18 05:30 INR, PTT INR 1.12 (0.83-1.09) H 08/16/18 07:30 Problem List - Problems (1) Afib Assessment/Plan: -Eliquis on hold due to hematuria -tele monitoring -Cardiology on board Code(s): I48.91 - UNSPECIFIED ATRIAL FIBRILLATION Qualifiers: Atrial fibrillation type: chronic Qualified Code(s): I48.2 - Chronic atrial fibrillation (2) Anemia Assessment/Plan: 12/20 to hematuria -Hold eliquis -Hg stable -Hematology consult placed -received 2 units of PRBC this admission Code(s): D64.9 - ANEMIA, UNSPECIFIED Qualifiers: Anemia type: other cause Other causes of anemia: antineoplastic chemotherapy Qualified Code(s): D64.81 - Anemia due to antineoplastic chemotherapy; T45.1X5A - Adverse effect of antineoplastic and immunosuppressive drugs, initial encounter (3) Chronic kidney disease (CKD) Assessment/Plan: at baseline now -monitor trend Code(s): N18.9 - CHRONIC KIDNEY DISEASE, UNSPECIFIED Qualifiers: Chronic kidney disease stage: stage 3 (moderate) Qualified Code(s): N18.3 - Chronic kidney disease, stage 3 (moderate) (4) Chronic lymphocytic leukemia (CLL), B-cell Code(s): C91.10 - CHRONIC LYMPHOCYTIC LEUK OF B-CELL TYPE NOT ACHIEVE REMIS Qualifiers: Leukemia Active/Remission status: in remission Qualified Code(s): C91.11 - Chronic lymphocytic leukemia of B-cell type in remission (5) Hematuria Assessment/Plan: -chamberlain cath -urology consult -UC negative -last U/S bladder showed blood clot in bladder -Previously refused cystoscopy Code(s): R31.9 - HEMATURIA, UNSPECIFIED Qualifiers: Hematuria type: gross Qualified Code(s): R31.0 - Gross hematuria Assessment/Plan see problem list physical therapy Cardiology clearance for cystoscopy
[2018-08-19] MEDS: AMINO ACIDS/PROTEIN HYDROLYS 30 ML LIQUID.PKT PO SCH ×2 (14:35→17:40)
[2018-08-19] MEDS: ALLOPURINOL 100 MG TABLET (FP) PO SCH (14:36)
[2018-08-19] MEDS: PANTOPRAZOLE 40 MG TABLET (FP) PO SCH ×2 (14:36→21:20)
[2018-08-19] MEDS: BACITRACIN 15 GM TUBE TOPICAL OINTMENT TP SCH ×2 (14:36→21:20)
--- NOTE | 2018-08-19 16:09 | PN ---
Progress Note (short form) - Note Progress Note: Renal follow up for JOON on CKD Pt seen and examined at the bedside pt lethargic, was given ativan earlier this am no sob, cp, abd pain, N/V Vital Signs Temperature 98.2 F 08/19/18 14:05 Pulse Rate 100 H 08/19/18 14:05 Respiratory Rate 22 H 08/19/18 14:05 Blood Pressure 115/64 08/19/18 14:05 O2 Sat by Pulse Oximetry (%) 97 08/19/18 09:00 Intake & Output 08/16/18 08/17/18 08/18/18 08/19/18 23:59 23:59 23:59 23:59 Intake Total 1999 1860 2595 1270 Output Total 1300 409 326 1810 Balance 700 1560 2195 170 NAD confused No LE edema chamberlain with bloody urine CBC, BMP 08/19/18 05:30 08/19/18 05:30 Current Medications Allopurinol (Zyloprim -) 100 mg PO DAILY [facility] Last Admin: 08/19/18 14:36 Dose: Not Given Amino Acids (Prosource No Carb Liquid Pkt) 30 ml PO BID@0800,1730 [facility] Last Admin: 08/19/18 14:35 Dose: Not Given Atorvastatin Calcium (Lipitor -) 20 mg PO HS [facility] Last Admin: 08/18/18 21:17 Dose: 20 mg Bacitracin (Bacitracin -) 1 applic TP BID [facility] Last Admin: 08/19/18 14:36 Dose: 1 applic Diltiazem HCl (Cardizem Cd -) 120 mg PO DAILY [facility] Last Admin: 08/19/18 14:36 Dose: Not Given Piperacillin Sod/Tazobactam (Sod 2.25 gm/ Dextrose) 50 mls @ 100 mls/hr IVPB Q8H-IV [facility]; Protocol Last Admin: 08/19/18 10:07 Dose: 100 mls/hr Melatonin (Melatonin) 5 mg PO HS [facility] Last Admin: 08/18/18 21:17 Dose: 5 mg Metoprolol Succinate (Toprol Xl -) 50 mg PO BID [facility] Last Admin: 08/19/18 14:36 Dose: Not Given Mirtazapine (Remeron -) 7.5 mg PO HS [facility] Last Admin: 08/18/18 21:18 Dose: 7.5 mg Non-Formulary Medication (Ibrutinib [Imbruvica]) 120 mg PO DAILY [facility] Pantoprazole Sodium (Protonix -) 40 mg PO BID [facility] Last Admin: 08/19/18 14:36 Dose: Not Given 87 year old gentleman known to our service with 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 #Syncope in setting of anemia and intravascular volume depletion #JOON secondary to volume depletion #Lactic acidosis #Leukocytosis #Urinary retention with chronic chamberlain #Hx of LE edema Renal function near baseline maintain off IVF oral intake as tolerated supportive care for sun-downing Urology follow up for hematuria Peewee Torres DO
[2018-08-19] MEDS: MIRTAZAPINE 15 MG TABLET (FP) PO SCH (21:20)
[2018-08-19] MEDS: ATORVASTATIN CA 20 MG TABLET (FP) PO SCH (21:21)
[2018-08-19] MEDS: MELATONIN 5 MG TABLETS PO SCH (21:21)
[2018-08-20] MEDS ORDERED: PIPERACILLIN/TAZOBACTAM 2.25 GM VIAL IVPB ONE ×2 (00:55→10:11)
[2018-08-20] MEDS ORDERED: DEXTROSE 5%-WATER - 50 ML IVPB ONE ×2 (00:56→10:12)
[2018-08-20] MEDS: PIPERACILLIN/TAZOB 2.25 GM 2.25 GM in DEXTROSE 5%-WATER - 50 ML IVPB SCH ×2 (00:59→10:19)
[2018-08-20 07:37] LABS: BASO % 0.7 % (0-2.0); EOS % 0.3 % (0-4.5); HEMATOCRIT 34.9 % (35.4-49); LYMPH % 27.5 % (8-40); MCH 29.5 pg (25.7-33.7); MCHC 31.5 g/dl (32.0-35.9); MEAN CELL VOLUME 93.7 fl (80-96); MEAN PLT VOLUME 11.2 fl (7.5-11.1); NEUT % 66.5 % (42.8-82.8); PLATELET COUNT 128 K/MM3 (134-434); RBC 3.72 M/mm3 (4.00-5.60); RDW 18.4 % (11.9-15.9); WHITE BLOOD COUNT 12.1 K/mm3 (4.0-10.0)
[2018-08-20 09:00] LABS: ALBUMIN 1.5 g/dl (3.4-5.0); ALK PHOS 88 U/L (45-117); ANION GAP 9 MMOL/L (8-16); BILIRUBIN,TOTAL 0.9 mg/dL (0.2-1); BLOOD UREA NITROGEN 30 mg/dL (7-18); CALCIUM 7.4 mg/dL (8.5-10.1); CHLORIDE 116 mmol/L (98-107); CO2 22 mmol/L (21-32); CREATININE 1.7 mg/dL (0.55-1.3); MAGNESIUM 1.9 mg/dL (1.8-2.4); PHOSPHOROUS 2.9 mg/dL (2.5-4.9); POTASSIUM 4.4 mmol/L (3.5-5.1); SGOT/AST 19 U/L (15-37); SGPT/ALT 19 U/L (13-61); SODIUM 146 mmol/L (136-145); TOT PROT 4.9 g/dl (6.4-8.2)
[2018-08-20 09:11] LABS: GLUCOSE,RANDOM 47 mg/dL (74-106)
--- NOTE | 2018-08-20 09:28 | CONSULT ---
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 Pt reported not feeling well for few days prior to admission. ED note indicated he had been feeling weak and lightheaded for the past week and has had multiple times where he needed to sit down to rest. On day prior to admission, he had an episode of passing out while standing after feeling lightheaded and weak. Unclear how long he had LOC. Of note, pt was evaluated here in the ED on 08/08 for hematuria and signed out AMA when admission was recommended due to low BP. He had a chamberlain catheter in place from home which was draining bloody urine. I was consulted for alerted mental status. CT head completed and reviewed and no acute changes. Degenerative subluxation of C7 in relation to T1, C6 on C spine CT. During my evaluation, he was able to tell me he's in the hospital, knows name [facility], knows it's 2017 but stated month as Nick (his month), knows president is guero, director professional services is Emiliano. Did have gray vest in place and wrist restraints. 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 01/2018 cholecystectomy Social History: Smoking: quit 2005, 1/2 PPD prior Alcohol: pt denies Drugs: pt denies Family History: father age 74, CVA mother age 72, unk sister age 70, unk brother alive s/p CVA Allergies warfarin sodium [From Coumadin] Allergy (Severe, Verified 08/14/18 13:30) bleeding HOME MEDICATIONS: 3 Medication Instructions Recorded Atorvastatin Ca [Lipitor] 20 mg PO HS 12/06/16 Furosemide [Lasix] 80 mg PO BID 12/06/16 Melatonin 5 mg PO HS 12/06/16 Metoprolol Succinate [Toprol XL -] 50 mg PO BID #60 tab.sr.24h 01/30/18 Ibrutinib [Imbruvica] 120 mg PO DAILY 06/20/18 Pantoprazole Sodium [Protonix -] 40 mg PO BID #60 tablet.ec 06/27/18 Allopurinol [Zyloprim -] 100 mg PO DAILY 08/08/18 REVIEW OF SYSTEMS CONSTITUTIONAL: Present: generalized weakness, malaise Absent: fever, chills, diaphoresis, loss of appetite, weight change HEENT: Absent: rhinorrhea, nasal congestion, throat pain, throat swelling, difficulty swallowing, mouth swelling, ear pain, eye pain, visual changes CARDIOVASCULAR: Present: syncope Absent: chest pain, palpitations, irregular heart rate, lightheadedness, peripheral edema RESPIRATORY: Absent: cough, shortness of breath, dyspnea with exertion, orthopnea, wheezing, stridor, hemoptysis GASTROINTESTINAL: Absent: abdominal pain, abdominal distension, nausea, vomiting, diarrhea, constipation, melena, hematochezia GENITOURINARY: Present: hematuria Absent: dysuria, frequency, urgency, hesitancy, flank pain, genital pain MUSCULOSKELETAL: Absent: myalgia, arthralgia, joint swelling, back pain, neck pain SKIN: Absent: rash, itching, pallor HEMATOLOGIC/IMMUNOLOGIC: Absent: easy bleeding, easy bruising, lymphadenopathy, frequent infections ENDOCRINE: Absent: unexplained weight gain, unexplained weight loss, heat intolerance, cold intolerance NEUROLOGIC: Absent: headache, focal weakness or paresthesias, dizziness, unsteady gait, seizure, mental status changes, bladder or bowel incontinence PSYCHIATRIC: Absent: anxiety, depression, suicidal or homicidal ideation, hallucinations. PHYSICAL EXAMINATION Vital Signs Period Temp Pulse Resp BP Sys/Gerardo Pulse Ox Last 24 Hr 96.7 F-98.3 F 95-111 18-22 106-126/61-77 96 GENERAL: Awake, alert, and fully oriented, in no acute distress. HEAD: ecchymosis and abrasion left forehead, hematoma around left eye. abrasion below left eye EYES: Pupils equal, round and reactive to light, extraocular movements intact, sclera anicteric, conjunctiva clear. No lid lag. EARS, NOSE, THROAT: Ears normal, nares patent, oropharynx clear without exudates. Moist mucous membranes. NECK: Normal range of motion, supple without lymphadenopathy, JVD, or masses. LUNGS: Breath sounds equal, clear to auscultation bilaterally. No wheezes, and no crackles. No accessory muscle use. HEART: Regular rate and rhythm, normal S1 and S2 without murmur, rub or gallop. ABDOMEN: Soft, nontender, not distended, normoactive bowel sounds, no guarding, no rebound, no masses. No hepatomegaly or splenomegaly. chamberlain draining bloody urine MUSCULOSKELETAL: Normal range of motion at all joints. No bony deformities or tenderness. No CVA tenderness. UPPER EXTREMITIES: 2+ pulses, warm, well-perfused. No cyanosis. No clubbing. No peripheral edema. LOWER EXTREMITIES: 2+ pulses, warm, well-perfused. No calf tenderness. No peripheral edema. chronic vascular skin changes B/L LE: darkened, hypertrophic skin. NEUROLOGICAL: Cranial nerves II-XII intact. Normal speech. PSYCHIATRIC: Cooperative. Good eye contact. Appropriate mood and affect. SKIN: Warm, dry, normal turgor, no rashes or lesions noted, normal capillary refill. CBCD WBC 12.1 K/mm3 (4.0-10.0) H 08/20/18 06:26 RBC 3.72 M/mm3 (4.00-5.60) L 08/20/18 06:26 Hgb 11.0 GM/dL (11.7-16.9) L 08/20/18 06:26 Hct 34.9 % (35.4-49) L 08/20/18 06:26 MCV 93.7 fl (80-96) 08/20/18 06:26 MCHC 31.5 g/dl (32.0-35.9) L 08/20/18 06:26 RDW 18.4 % (11.9-15.9) H 08/20/18 06:26 Plt Count 128 K/MM3 (134-434) L D 08/20/18 06:26 MPV 11.2 fl (7.5-11.1) H 08/20/18 06:26 CMP Sodium 146 mmol/L (136-145) H 08/20/18 06:26 Potassium 4.4 mmol/L (3.5-5.1) 08/20/18 06:26 Chloride 116 mmol/L (98-107) H 08/20/18 06:26 Carbon Dioxide 22 mmol/L (21-32) 08/20/18 06:26 Anion Gap 9 MMOL/L (8-16) 08/20/18 06:26 BUN 30 mg/dL (7-18) H 08/20/18 06:26 Creatinine 1.7 mg/dL (0.55-1.3) H 08/20/18 06:26 Creat Clearance w eGFR 38.32 (>60) 08/20/18 06:26 Random Glucose 47 mg/dL (74-106) L* 08/20/18 06:26 Calcium 7.4 mg/dL (8.5-10.1) L 08/20/18 06:26 Total Bilirubin 0.9 mg/dL (0.2-1) 08/20/18 06:26 AST 19 U/L (15-37) 08/20/18 06:26 ALT 19 U/L (13-61) 08/20/18 06:26 Alkaline Phosphatase 88 U/L (45-117) 08/20/18 06:26 Total Protein 4.9 g/dl (6.4-8.2) L 08/20/18 06:26 Albumin 1.5 g/dl (3.4-5.0) L 08/20/18 06:26 CARDIAC ENZYMES Creatine Kinase 64 IU/L (26-308) 08/15/18 05:30 Troponin I 0.05 ng/ml (0.00-0.05) 08/15/18 05:[address] head Impression. No evidence of acute intracranial hemorrhage, edema, midline shift, mass effect , or skull fracture. No CT evidence of acute territorial infarction. CT cspine Impression. No acute bony abnormalities are seen. Intact odontoid. The predental space is not widened. Multilevel cervical spondylosis. Facet joint arthropathy. Osteoarthritis of uncovertebral joints. 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 Pt reported not feeling well for few days prior to admission. ED note indicated he had been feeling weak and lightheaded for the past week and has had multiple times where he needed to sit down to rest. On day prior to admission, he had an episode of passing out while standing after feeling lightheaded and weak. Unclear how long he had LOC. Of note, pt was evaluated here in the ED on 08/08 for hematuria and signed out AMA when admission was recommended due to low BP. He had a chamberlain catheter in place from home which was draining bloody urine. I was consulted for alerted mental status. CT head completed and reviewed and no acute changes. During my evaluation, he was able to tell me he's in the hospital, knows name [facility], knows it's 2017 but stated month as Nov (his month), knows president is guero, director professional services is Emiliano. Did have gray vest in place and wrist restraints. Seems to be near baseline in mental status though if behavioral difficulty, would consider psych eval. Infectious treatment, can certainly alter mental status in elderly, IV Abx per ID. Medically optimize, monitor kidney function as patient with chronic kidney disease. Monitor H/H, anemia optimization. Continue syncope workup, tele, cards follow up IV/PO hydration DVT ppx
[2018-08-20] MEDS: PANTOPRAZOLE 40 MG TABLET (FP) PO SCH ×2 (10:19→21:04)
[2018-08-20] MEDS: ALLOPURINOL 100 MG TABLET (FP) PO SCH (10:19)
[2018-08-20] MEDS: BACITRACIN 15 GM TUBE TOPICAL OINTMENT TP SCH ×2 (10:20→21:06)
[2018-08-20] MEDS: AMINO ACIDS/PROTEIN HYDROLYS 30 ML LIQUID.PKT PO SCH ×2 (10:20→18:00)
--- NOTE | 2018-08-20 12:02 | PN ---
Progress Note, Physician History of Present Illness: Hematuria in chamberlain bag, in bed in gray. - Current Medication List Current Medications: Active Medications Allopurinol (Zyloprim -) 100 mg PO DAILY [facility] Last Admin: 08/20/18 10:19 Dose: 100 mg Amino Acids (Prosource No Carb Liquid Pkt) 30 ml PO BID@0800,1730 [facility] Last Admin: 08/20/18 10:20 Dose: 30 ml Atorvastatin Calcium (Lipitor -) 20 mg PO [facility] Last Admin: 08/19/18 21:21 Dose: 20 mg Bacitracin (Bacitracin -) 1 applic TP BID [facility] Last Admin: 08/20/18 10:20 Dose: 1 applic Diltiazem HCl (Cardizem Cd -) 120 mg PO DAILY [facility] Last Admin: 08/20/18 10:19 Dose: 120 mg Piperacillin Sod/Tazobactam (Sod 2.25 gm/ Dextrose) 50 mls @ 100 mls/hr IVPB Q8H-IV [facility]; Protocol Last Admin: 08/20/18 10:19 Dose: 100 mls/hr Melatonin (Melatonin) 5 mg PO [facility] Last Admin: 08/19/18 21:21 Dose: 5 mg Metoprolol Succinate (Toprol Xl -) 50 mg PO BID [facility] Last Admin: 08/20/18 10:19 Dose: 50 mg Mirtazapine (Remeron -) 7.5 mg PO [facility] Last Admin: 08/19/18 21:20 Dose: 7.5 mg Non-Formulary Medication (Ibrutinib [Imbruvica]) 120 mg PO DAILY [facility] Pantoprazole Sodium (Protonix -) 40 mg PO BID [facility] Last Admin: 08/20/18 10:19 Dose: 40 mg - Objective Vital Signs: Vital Signs Temperature 97 F L 08/20/18 10:00 Pulse Rate 104 H 08/20/18 10:00 Respiratory Rate 22 H 08/20/18 10:00 Blood Pressure 106/55 L 08/20/18 10:00 O2 Sat by Pulse Oximetry (%) 96 08/19/18 21:00 Constitutional: Yes: No Distress, Calm, Thin Neck: Yes: Supple Cardiovascular: Yes: Pulse Irregular Respiratory: Yes: Regular, Diminished Gastrointestinal: Yes: Normal Bowel Sounds, Soft Genitourinary: Yes: Chamberlain Present, Hematuria Edema: No Labs: CBC, BMP 10/03/18 06:26 08/20/18 06:26 INR, PTT INR 1.12 (0.83-1.09) H 08/16/18 07:30 - ....Imaging EKG: Report Reviewed (Tele: Fidel afib) Problem List - Problems (1) Syncope Code(s): R55 - SYNCOPE AND COLLAPSE Qualifiers: Syncope type: vasovagal syncope Qualified Code(s): R55 - Syncope and collapse (2) Acute kidney injury Code(s): N17.9 - ACUTE KIDNEY FAILURE, UNSPECIFIED (3) Anemia due to blood loss, acute Code(s): D62 - ACUTE POSTHEMORRHAGIC ANEMIA (4) Atrial fibrillation with rapid ventricular response Code(s): I48.91 - UNSPECIFIED ATRIAL FIBRILLATION (5) Chronic lymphocytic leukemia (CLL), B-cell Code(s): C91.10 - CHRONIC LYMPHOCYTIC LEUK OF B-CELL TYPE NOT ACHIEVE REMIS Qualifiers: Leukemia Active/Remission status: in remission Qualified Code(s): C91.11 - Chronic lymphocytic leukemia of B-cell type in remission (6) Hyperlipidemia Code(s): E78.5 - HYPERLIPIDEMIA, UNSPECIFIED Qualifiers: Hyperlipidemia type: pure hypercholesterolemia Qualified Code(s): E78.00 - Pure hypercholesterolemia, unspecified; E78.0 - Pure hypercholesterolemia (7) Mesenteric infarction Code(s): K55.069 - ACUTE INFARCTION OF INTESTINE, PART AND EXTENT UNSPECIFIED (8) TIA (transient ischemic attack) Code(s): G45.9 - TRANSIENT CEREBRAL ISCHEMIC ATTACK, UNSPECIFIED Qualifiers: Transient cerebral ischemia type: unspecified Qualified Code(s): G45.9 - Transient cerebral ischemic attack, unspecified (9) Urinary hesitancy Code(s): R39.11 - HESITANCY OF MICTURITION (10) Weakness due to cerebrovascular accident (CVA) Code(s): I63.9 - CEREBRAL INFARCTION, UNSPECIFIED; R53.1 - WEAKNESS Assessment/Plan Echo: 01/23/2018 Normal biventricular size and fxn, mild-mod TR, mild , mod LAE, mild HILTON 1. Syncope in setting of anemia and intravascular volume depletion from overdiuresis 2. Anemia receiving pRBC with h/o gastrointestinal bleed related to ischemic colitis, angiodysplasias of the stomach and colon 2. CAD angina pectoris, stable 3. Diastolic LV dysfunction with chronic class 0-I NYHA classification LV failure, compensated/euvolemic 4. Persistent atrial fibrillation with periods of rapid ventricular response [id number] score of 6 on A/C now off DOAC's/Eliquis 5. History of CVA/TIA 6. HTN 7. Hypercholesterolemia 8. 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 History of recurrent diverticular bleed 10. Acute on CKD (pre-renal) referable to volume depletion from overdiuresis improving 11. History of hematuria, urinary retention with chronic chamberlain 12. History of CLL with anemia and thrombocytopenia 13. History of non Hodgkin's lymphoma 14. UTI/gross hematuria PLAN: 1. Transfused pRBC with monitor renal recovery and electrolytes, holding diuretics in meantime 2. Resume Eliquis 2.5 bid once hematuria resolves, continue Metoprolol 50 bid, Lipitor 20 qhs, increase Cardizem CD 180 qd for improved rate-control 3. Transfuse to maintain Hg equal or > 8.0 4. Empiric zosyn per ID, GI protection 5. Urology plans cystoscopy and TURBT once rate-control improves
--- NOTE | 2018-08-20 13:13 | PN ---
Progress Note (short form) - Note Progress Note: Renal follow up for JOON on CKD Pt seen and examined at the bedside no acute complaints no sob, cp, abd pain, N/V/D Vital Signs Temperature 97 F L 08/20/18 10:00 Pulse Rate 104 H 08/20/18 10:00 Respiratory Rate 22 H 08/20/18 10:00 Blood Pressure 106/55 L 08/20/18 10:00 O2 Sat by Pulse Oximetry (%) 96 08/20/18 09:00 Intake & Output 08/17/18 08/18/18 08/19/18 08/20/18 23:59 23:59 23:59 23:59 Intake Total 1860 2595 1640 300 Output Total 040 889 0782 150 Balance 1560 2195 140 150 NAD confused No LE edema chamberlain with bloody urine CBC, BMP 08/20/18 06:26 08/20/18 06:26 Current Medications Allopurinol (Zyloprim -) 100 mg PO DAILY [facility] Last Admin: 08/20/18 10:19 Dose: 100 mg Amino Acids (Prosource No Carb Liquid Pkt) 30 ml PO BID@0800,1730 [facility] Last Admin: 08/20/18 10:20 Dose: 30 ml Atorvastatin Calcium (Lipitor -) 20 mg PO HS [facility] Last Admin: 08/19/18 21:21 Dose: 20 mg Bacitracin (Bacitracin -) 1 applic TP BID [facility] Last Admin: 08/20/18 10:20 Dose: 1 applic Diltiazem HCl (Cardizem Cd -) 120 mg PO DAILY [facility] Last Admin: 08/20/18 10:19 Dose: 120 mg Piperacillin Sod/Tazobactam (Sod 2.25 gm/ Dextrose) 50 mls @ 100 mls/hr IVPB Q8H-IV [facility]; Protocol Last Admin: 08/20/18 10:19 Dose: 100 mls/hr Melatonin (Melatonin) 5 mg PO HS [facility] Last Admin: 08/19/18 21:21 Dose: 5 mg Metoprolol Succinate (Toprol Xl -) 50 mg PO BID [facility] Last Admin: 08/20/18 10:19 Dose: 50 mg Mirtazapine (Remeron -) 7.5 mg PO HS [facility] Last Admin: 08/19/18 21:20 Dose: 7.5 mg Non-Formulary Medication (Ibrutinib [Imbruvica]) 120 mg PO DAILY [facility] Pantoprazole Sodium (Protonix -) 40 mg PO BID [facility] Last Admin: 08/20/18 10:19 Dose: 40 mg 87 year old gentleman known to our service with 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 #Syncope in setting of anemia and intravascular volume depletion #JOON secondary to volume depletion #Lactic acidosis #Leukocytosis #Urinary retention with chronic chamberlain #Hx of LE edema #Hematuria Renal function improved and stable off IVF no evidence of overt volume overload at this time, would maintain off diuretics at this time urology follow up for hematuria and blood clot in bladder Peewee Torres DO
--- NOTE | 2018-08-20 15:27 | PN ---
Progress Note (short form) - Note Progress Note: UROLOGY NOTE 87 Y/O Male patient with history NHL, A fib, HT and BPH developed AUR and chamberlain catheter inserted in my office 3 last week, he is admitted because change his consciousness and he has chamberlain catheter with gross hematuria. O/E soft lax abd S.CREAT 1.7 HGB 10 Plan: keep chamberlain catheter and will schedule him for cystoscopy and TURBT once he is medically cleared for anesthesia. continue IV ABX also he needs Renal U/S
--- NOTE | 2018-08-20 17:11 | PN ---
Progress Note, Physician Chief Complaint: Sepsis Hematuria Anemia History of Present Illness: NAD in bed alert oriented to place, name, presidents name, year only Indwelling chamberlain cath +hematuria Anemia stable Seen by Urology - Current Medication List Current Medications: Active Medications Allopurinol (Zyloprim -) 100 mg PO DAILY [facility] Last Admin: 08/20/18 10:19 Dose: 100 mg Amino Acids (Prosource No Carb Liquid Pkt) 30 ml PO BID@0800,1730 [facility] Last Admin: 08/20/18 10:20 Dose: 30 ml Atorvastatin Calcium (Lipitor -) 20 mg PO [facility] Last Admin: 08/19/18 21:21 Dose: 20 mg Bacitracin (Bacitracin -) 1 applic TP BID [facility] Last Admin: 08/20/18 10:20 Dose: 1 applic Diltiazem HCl (Cardizem Cd -) 120 mg PO DAILY [facility] Last Admin: 08/20/18 10:19 Dose: 120 mg Dextrose/Sodium Chloride (D5-1/2ns -) 1,000 mls @ 60 mls/hr IV ASDIR [facility] Melatonin (Melatonin) 5 mg PO [facility] Last Admin: 08/19/18 21:21 Dose: 5 mg Metoprolol Succinate (Toprol Xl -) 50 mg PO BID [facility] Last Admin: 08/20/18 10:19 Dose: 50 mg Mirtazapine (Remeron -) 7.5 mg PO [facility] Last Admin: 08/19/18 21:20 Dose: 7.5 mg Non-Formulary Medication (Ibrutinib [Imbruvica]) 120 mg PO DAILY [facility] Pantoprazole Sodium (Protonix -) 40 mg PO BID [facility] Last Admin: 08/20/18 10:19 Dose: 40 mg - Objective Vital Signs: Vital Signs Temperature 97.3 F L 08/20/18 13:55 Pulse Rate 102 H 08/20/18 13:55 Respiratory Rate 22 H 08/20/18 13:55 Blood Pressure 127/65 08/20/18 13:55 O2 Sat by Pulse Oximetry (%) 96 08/20/18 09:00 Constitutional: Yes: Well Nourished, No Distress, Calm Cardiovascular: Yes: Regular Rate and Rhythm Respiratory: Yes: Regular Gastrointestinal: Yes: Normal Bowel Sounds, Soft Musculoskeletal: Yes: WNL Extremities: Yes: WNL Edema: Yes Peripheral Pulses WNL: Yes Neurological: Yes: Alert, Confusion Psychiatric: Yes: Alert Labs: CBC, BMP 08/20/18 06:26 08/20/18 06:26 INR, PTT INR 1.12 (0.83-1.09) H 08/16/18 07:30 Problem List - Problems (1) Afib Assessment/Plan: -Eliquis on hold due to hematuria -tele monitoring -Cardiology on board Code(s): I48.91 - UNSPECIFIED ATRIAL FIBRILLATION Qualifiers: Atrial fibrillation type: chronic Qualified Code(s): I48.2 - Chronic atrial fibrillation (2) Anemia Assessment/Plan: 12/20 to hematuria -Hold eliquis -Hg stable -Hematology consult placed -received 2 units of PRBC this admission Code(s): D64.9 - ANEMIA, UNSPECIFIED Qualifiers: Anemia type: other cause Other causes of anemia: antineoplastic chemotherapy Qualified Code(s): D64.81 - Anemia due to antineoplastic chemotherapy; T45.1X5A - Adverse effect of antineoplastic and immunosuppressive drugs, initial encounter (3) Chronic kidney disease (CKD) Assessment/Plan: at baseline now -monitor trend Code(s): N18.9 - CHRONIC KIDNEY DISEASE, UNSPECIFIED Qualifiers: Chronic kidney disease stage: stage 3 (moderate) Qualified Code(s): N18.3 - Chronic kidney disease, stage 3 (moderate) (4) Chronic lymphocytic leukemia (CLL), B-cell Code(s): C91.10 - CHRONIC LYMPHOCYTIC LEUK OF B-CELL TYPE NOT ACHIEVE REMIS Qualifiers: Leukemia Active/Remission status: in remission Qualified Code(s): C91.11 - Chronic lymphocytic leukemia of B-cell type in remission (5) Hematuria Assessment/Plan: -chamberlain cath -urology consult -UC negative -last U/S bladder showed blood clot in bladder -Cystoscopy once cleared by cardiology Code(s): R31.9 - HEMATURIA, UNSPECIFIED Qualifiers: Hematuria type: gross Qualified Code(s): R31.0 - Gross hematuria Assessment/Plan see problem list physical therapy Cardiology clearance for cystoscopy
[2018-08-20] MEDS: DEXTROSE 5%-0.45% SALINE 1,000 ML IV SCH (18:00)
[2018-08-20] MEDS ORDERED: PT OWN MED DRAWER 7, Y5N ONE (18:23)
[2018-08-20] MEDS: MELATONIN 5 MG TABLETS PO SCH (21:04)
[2018-08-20] MEDS: MIRTAZAPINE 15 MG TABLET (FP) PO SCH (21:04)
[2018-08-20] MEDS: IBRUTINIB PO SCH (21:05)
[2018-08-20] MEDS: ATORVASTATIN CA 20 MG TABLET (FP) PO SCH (21:05)
[2018-08-21 07:19] LABS: BASO % 0.4 % (0-2.0); EOS % 0.6 % (0-4.5); HEMATOCRIT 32.5 % (35.4-49); HEMOGLOBIN 10.4 GM/dL (11.7-16.9); LYMPH % 32.4 % (8-40); MCH 29.7 pg (25.7-33.7); MCHC 32.1 g/dl (32.0-35.9); MEAN CELL VOLUME 92.6 fl (80-96); MONO % 5.4 % (3.8-10.2); NEUT % 61.2 % (42.8-82.8); PLATELET COUNT 136 K/MM3 (134-434); RBC 3.51 M/mm3 (4.00-5.60); RDW 18.2 % (11.9-15.9); WHITE BLOOD COUNT 12.2 K/mm3 (4.0-10.0)
[2018-08-21 07:38] LABS: ALBUMIN 1.4 g/dl (3.4-5.0); ALK PHOS 84 U/L (45-117); ANION GAP 3 MMOL/L (8-16); BILIRUBIN,TOTAL 0.8 mg/dL (0.2-1); BLOOD UREA NITROGEN 33 mg/dL (7-18); CALCIUM 7.4 mg/dL (8.5-10.1); CHLORIDE 117 mmol/L (98-107); CO2 24 mmol/L (21-32); CREATININE 1.9 mg/dL (0.55-1.3); GLUCOSE,RANDOM 90 mg/dL (74-106); POTASSIUM 4.1 mmol/L (3.5-5.1); SGOT/AST 19 U/L (15-37); SGPT/ALT 21 U/L (13-61); SODIUM 143 mmol/L (136-145); TOT PROT 4.7 g/dl (6.4-8.2)
--- NOTE | 2018-08-21 08:51 | PN ---
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 Pt reported not feeling well for few days prior to admission. ED note indicated he had been feeling weak and lightheaded for the past week and has had multiple times where he needed to sit down to rest. On day prior to admission, he had an episode of passing out while standing after feeling lightheaded and weak. Unclear how long he had LOC. Of note, pt was evaluated here in the ED on 08/08 for hematuria and signed out AMA when admission was recommended due to low BP. I was consulted for altered mental status. CT head completed and reviewed and no acute changes. Degenerative subluxation of C7 in relation to T1, C6 on C spine CT. During my evaluation, he was able to tell me he's in the hospital, knows name [facility], knows it's 2018, knows president is guero, roof service technician is Emiliano. Did have gray vest in place and wrist restraints in place. Slightly more fatigued today but cooperative. Allergies warfarin sodium [From Coumadin] Allergy (Severe, Verified 08/14/18 13:30) bleeding Active Medications Allopurinol (Zyloprim -) 100 mg PO DAILY [facility] Last Admin: 08/20/18 10:19 Dose: 100 mg Amino Acids (Prosource No Carb Liquid Pkt) 30 ml PO BID@0800,1730 [facility] Last Admin: 08/20/18 18:00 Dose: 30 ml Atorvastatin Calcium (Lipitor -) 20 mg PO HS [facility] Last Admin: 08/20/18 21:05 Dose: 20 mg Bacitracin (Bacitracin -) 1 applic TP BID [facility] Last Admin: 08/20/18 21:06 Dose: 1 applic Diltiazem HCl (Cardizem Cd -) 120 mg PO DAILY [facility] Last Admin: 08/20/18 10:19 Dose: 120 mg Dextrose/Sodium Chloride (D5-1/2ns -) 1,000 mls @ 60 mls/hr IV ASDIR [facility] Last Admin: 08/20/18 18:00 Dose: 60 mls/hr Melatonin (Melatonin) 5 mg PO [facility] Last Admin: 08/20/18 21:04 Dose: 5 mg Metoprolol Succinate (Toprol Xl -) 50 mg PO BID [facility] Last Admin: 08/20/18 21:05 Dose: 50 mg Mirtazapine (Remeron -) 7.5 mg PO HS [facility] Last Admin: 08/20/18 21:04 Dose: 7.5 mg Ptnt's Own Med( Ibrutinib [Imbruvica ] 120 Mg) 120 mg PO DAILY [facility] Last Admin: 08/20/18 21:05 Dose: 120 mg Pantoprazole Sodium (Protonix -) 40 mg PO BID [facility] Last Admin: 08/20/18 21:04 Dose: 40 mg PHYSICAL EXAMINATION Vital Signs Period Temp Pulse Resp BP Sys/Gerardo Pulse Ox Last 24 Hr 96.5 F-98.8 F 88-104 18-22 97-127/55-67 96-98 GENERAL: Awake, alert, in no acute distress. HEAD: ecchymosis and abrasion left forehead, hematoma around left eye. abrasion below left eye EYES: Pupils equal, round and reactive to light, extraocular movements intact, sclera anicteric, conjunctiva clear. No lid lag. EARS, NOSE, THROAT: Ears normal, nares patent, oropharynx clear without exudates. Moist mucous membranes. NECK: Normal range of motion, supple without lymphadenopathy, JVD, or masses. LUNGS: Breath sounds equal, clear to auscultation bilaterally. No wheezes, and no crackles. No accessory muscle use. HEART: Regular rate and rhythm, normal S1 and S2 without murmur, rub or gallop. ABDOMEN: Soft, nontender, not distended, normoactive bowel sounds, no guarding, no rebound, no masses. No hepatomegaly or splenomegaly. chamberlain draining bloody urine MUSCULOSKELETAL: Normal range of motion at all joints. No bony deformities or tenderness. No CVA tenderness. UPPER EXTREMITIES: 2+ pulses, warm, well-perfused. No cyanosis. No clubbing. No peripheral edema. LOWER EXTREMITIES: 2+ pulses, warm, well-perfused. No calf tenderness. No peripheral edema. chronic vascular skin changes B/L LE: darkened, hypertrophic skin. NEUROLOGICAL: Awake, alert, dysarthric, sensory intact, moving extremities grossly, gait deferred PSYCHIATRIC: Cooperative. Good eye contact. Appropriate mood and affect. SKIN: Warm, dry, normal turgor, no rashes or lesions noted, normal capillary refill. CBCD WBC 12.2 K/mm3 (4.0-10.0) H 08/21/18 06:00 RBC 3.51 M/mm3 (4.00-5.60) L 08/21/18 06:00 Hgb 10.4 GM/dL (11.7-16.9) L 08/21/18 06:00 Hct 32.5 % (35.4-49) L 08/21/18 06:00 MCV 92.6 fl (80-96) 08/21/18 06:00 MCHC 32.1 g/dl (32.0-35.9) 08/21/18 06:00 RDW 18.2 % (11.9-15.9) H 08/21/18 06:00 Plt Count 136 K/MM3 (134-434) 08/21/18 06:00 MPV 11.0 fl (7.5-11.1) 08/21/18 06:00 CMP Sodium 143 mmol/L (136-145) 08/21/18 05:30 Potassium 4.1 mmol/L (3.5-5.1) 08/21/18 05:30 Chloride 117 mmol/L (98-107) H 08/21/18 05:30 Carbon Dioxide 24 mmol/L (21-32) 08/21/18 05:30 Anion Gap 3 MMOL/L (8-16) L 08/21/18 05:30 BUN 33 mg/dL (7-18) H 08/21/18 05:30 Creatinine 1.9 mg/dL (0.55-1.3) H 08/21/18 05:30 Creat Clearance w eGFR 33.70 (>60) 08/21/18 05:30 Random Glucose 90 mg/dL (74-106) 08/21/18 05:30 Calcium 7.4 mg/dL (8.5-10.1) L 08/21/18 05:30 Total Bilirubin 0.8 mg/dL (0.2-1) 08/21/18 05:30 AST 19 U/L (15-37) 08/21/18 05:30 ALT 21 U/L (13-61) 08/21/18 05:30 Alkaline Phosphatase 84 U/L (45-117) 08/21/18 05:30 Total Protein 4.7 g/dl (6.4-8.2) L 08/21/18 05:30 Albumin 1.4 g/dl (3.4-5.0) L 08/21/18 05:30 CARDIAC ENZYMES Creatine Kinase 64 IU/L (26-308) 08/15/18 05:30 Troponin I 0.05 ng/ml (0.00-0.05) 08/15/18 05:[address] head Impression. No evidence of acute intracranial hemorrhage, edema, midline shift, mass effect , or skull fracture. No CT evidence of acute territorial infarction. CT c spine Impression. No acute bony abnormalities are seen. Intact odontoid. The predental space is not widened. Multilevel cervical spondylosis. Facet joint arthropathy. Osteoarthritis of uncovertebral joints. 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 Pt reported not feeling well for few days prior to admission. ED note indicated he had been feeling weak and lightheaded for the past week and has had multiple times where he needed to sit down to rest. On day prior to admission, he had an episode of passing out while standing after feeling lightheaded and weak. Unclear how long he had LOC. Of note, pt was evaluated here in the ED on 08/08 for hematuria and signed out AMA when admission was recommended due to low BP. He had a chamberlain catheter in place from home which was draining bloody urine. I was consulted for alerted mental status. CT head completed and reviewed and no acute changes. Knows he's in the hospital, knows name [facility], knows it's 2018, knows president is guero, roof service technician is Emiliano. Seems to be near baseline in mental status though if behavioral difficulty, would consider psych eval. Infectious treatment, can certainly alter mental status in elderly, IV Abx per ID. Did have gray vest in place and wrist restraints. Medically optimize, monitor kidney function as patient with chronic kidney disease. Monitor H/H, anemia optimization. Continue syncope workup, tele, cards follow up IV/PO hydration DVT ppx
[2018-08-21] MEDS: ALLOPURINOL 100 MG TABLET (FP) PO SCH (10:07)
[2018-08-21] MEDS: IBRUTINIB PO SCH (10:08)
[2018-08-21] MEDS: PANTOPRAZOLE 40 MG TABLET (FP) PO SCH ×2 (10:08→21:17)
[2018-08-21] MEDS: BACITRACIN 15 GM TUBE TOPICAL OINTMENT TP SCH ×2 (10:08→21:17)
[2018-08-21] MEDS: AMINO ACIDS/PROTEIN HYDROLYS 30 ML LIQUID.PKT PO SCH ×2 (10:09→17:42)
--- NOTE | 2018-08-21 11:51 | PN ---
Progress Note, Physician Chief Complaint: Sepsis Hematuria Anemia History of Present Illness: NAD in bed alert oriented to place, name, presidents name, year only Indwelling chamberlain cath +hematuria Anemia stable Seen by Urology - Current Medication List Current Medications: Active Medications Allopurinol (Zyloprim -) 100 mg PO DAILY [facility] Last Admin: 08/21/18 10:07 Dose: 100 mg Amino Acids (Prosource No Carb Liquid Pkt) 30 ml PO BID@0800,1730 [facility] Last Admin: 08/21/18 10:09 Dose: 30 ml Atorvastatin Calcium (Lipitor -) 20 mg PO HS [facility] Last Admin: 08/20/18 21:05 Dose: 20 mg Bacitracin (Bacitracin -) 1 applic TP BID [facility] Last Admin: 08/21/18 10:08 Dose: 1 applic Diltiazem HCl (Cardizem Cd -) 120 mg PO DAILY [facility] Last Admin: 08/21/18 10:07 Dose: 120 mg Dextrose/Sodium Chloride (D5-1/2ns -) 1,000 mls @ 60 mls/hr IV ASDIR [facility] Last Admin: 08/20/18 18:00 Dose: 60 mls/hr Melatonin (Melatonin) 5 mg PO [facility] Last Admin: 08/20/18 21:04 Dose: 5 mg Metoprolol Succinate (Toprol Xl -) 50 mg PO BID [facility] Last Admin: 08/21/18 10:08 Dose: 50 mg Mirtazapine (Remeron -) 7.5 mg PO [facility] Last Admin: 08/20/18 21:04 Dose: 7.5 mg Ptnt's Own Med( Ibrutinib [Imbruvica ] 120 Mg) 120 mg PO DAILY [facility] Last Admin: 08/21/18 10:08 Dose: 120 mg Pantoprazole Sodium (Protonix -) 40 mg PO BID [facility] Last Admin: 08/21/18 10:08 Dose: 40 mg - Objective Vital Signs: Vital Signs Temperature 98.7 F 08/21/18 05:00 Pulse Rate 88 08/21/18 05:00 Respiratory Rate 20 08/21/18 05:00 Blood Pressure 98/67 08/21/18 05:00 O2 Sat by Pulse Oximetry (%) 98 08/20/18 21:00 Constitutional: Yes: Well Nourished, No Distress, Calm Cardiovascular: Yes: Regular Rate and Rhythm Respiratory: Yes: Regular Gastrointestinal: Yes: Normal Bowel Sounds, Soft Genitourinary: Yes: Chamberlain Present Musculoskeletal: Yes: Muscle Weakness Edema: Yes Edema: LLE: 1+, RLE: 1+ Peripheral Pulses WNL: Yes Neurological: Yes: Alert, Confusion Psychiatric: Yes: Alert Labs: CBC, BMP 08/21/18 06:00 08/21/18 05:30 INR, PTT INR 1.12 (0.83-1.09) H 08/16/18 07:30 Problem List - Problems (1) Afib Assessment/Plan: -Eliquis on hold due to hematuria -tele monitoring -Cardiology on board Code(s): I48.91 - UNSPECIFIED ATRIAL FIBRILLATION Qualifiers: Atrial fibrillation type: chronic Qualified Code(s): I48.2 - Chronic atrial fibrillation (2) Anemia Assessment/Plan: 12/20 to hematuria -Hold eliquis -Hg stable -Hematology consult placed -received 2 units of PRBC this admission Code(s): D64.9 - ANEMIA, UNSPECIFIED Qualifiers: Anemia type: other cause Other causes of anemia: antineoplastic chemotherapy Qualified Code(s): D64.81 - Anemia due to antineoplastic chemotherapy; T45.1X5A - Adverse effect of antineoplastic and immunosuppressive drugs, initial encounter (3) Chronic kidney disease (CKD) Assessment/Plan: at baseline now -monitor trend Code(s): N18.9 - CHRONIC KIDNEY DISEASE, UNSPECIFIED Qualifiers: Chronic kidney disease stage: stage 3 (moderate) Qualified Code(s): N18.3 - Chronic kidney disease, stage 3 (moderate) (4) Chronic lymphocytic leukemia (CLL), B-cell Code(s): C91.10 - CHRONIC LYMPHOCYTIC LEUK OF B-CELL TYPE NOT ACHIEVE REMIS Qualifiers: Leukemia Active/Remission status: in remission Qualified Code(s): C91.11 - Chronic lymphocytic leukemia of B-cell type in remission (5) Hematuria Assessment/Plan: -chamberlain cath -urology consult -UC negative -last U/S bladder showed blood clot in bladder -Cystoscopy once cleared by cardiology Code(s): R31.9 - HEMATURIA, UNSPECIFIED Qualifiers: Hematuria type: gross Qualified Code(s): R31.0 - Gross hematuria (6) Assessment/Plan: -Zoey vest -Psychiatry consult -started on Remeron 7.5 mg po HS Code(s): F05 - DELIRIUM DUE TO KNOWN PHYSIOLOGICAL CONDITION Assessment/Plan see problem list physical therapy Cardiology clearance for cystoscopy
--- NOTE | 2018-08-21 12:14 | PN ---
Progress Note, Physician History of Present Illness: Hematuria in chamberlain bag, confused in bed off gray. - Current Medication List Current Medications: Active Medications Allopurinol (Zyloprim -) 100 mg PO DAILY [facility] Last Admin: 08/21/18 10:07 Dose: 100 mg Amino Acids (Prosource No Carb Liquid Pkt) 30 ml PO BID@0800,1730 [facility] Last Admin: 08/21/18 10:09 Dose: 30 ml Atorvastatin Calcium (Lipitor -) 20 mg PO HS [facility] Last Admin: 08/20/18 21:05 Dose: 20 mg Bacitracin (Bacitracin -) 1 applic TP BID [facility] Last Admin: 08/21/18 10:08 Dose: 1 applic Diltiazem HCl (Cardizem Cd -) 120 mg PO DAILY [facility] Last Admin: 08/21/18 10:07 Dose: 120 mg Dextrose/Sodium Chloride (D5-1/2ns -) 1,000 mls @ 60 mls/hr IV ASDIR [facility] Last Admin: 08/20/18 18:00 Dose: 60 mls/hr Melatonin (Melatonin) 5 mg PO [facility] Last Admin: 08/20/18 21:04 Dose: 5 mg Metoprolol Succinate (Toprol Xl -) 50 mg PO BID [facility] Last Admin: 08/21/18 10:08 Dose: 50 mg Mirtazapine (Remeron -) 7.5 mg PO [facility] Last Admin: 08/20/18 21:04 Dose: 7.5 mg Ptnt's Own Med( Ibrutinib [Imbruvica ] 120 Mg) 120 mg PO DAILY [facility] Last Admin: 08/21/18 10:08 Dose: 120 mg Pantoprazole Sodium (Protonix -) 40 mg PO BID [facility] Last Admin: 08/21/18 10:08 Dose: 40 mg - Objective Vital Signs: Vital Signs Temperature 98.7 F 08/21/18 05:00 Pulse Rate 88 08/21/18 05:00 Respiratory Rate 20 08/21/18 05:00 Blood Pressure 98/67 08/21/18 05:00 O2 Sat by Pulse Oximetry (%) 98 08/20/18 21:00 Constitutional: Yes: No Distress, Calm, Thin Neck: Yes: Supple Cardiovascular: Yes: Pulse Irregular Respiratory: Yes: Regular, Diminished, On Nasal O2 Gastrointestinal: Yes: Normal Bowel Sounds, Soft Genitourinary: Yes: Chamberlain Present, Hematuria Edema: No Labs: CBC, BMP 08/21/18 06:00 08/21/18 05:30 INR, PTT INR 1.12 (0.83-1.09) H 08/16/18 07:30 - ....Imaging EKG: Report Reviewed (Tele: Improved afib rate-control) Problem List - Problems (1) Syncope Code(s): R55 - SYNCOPE AND COLLAPSE Qualifiers: Syncope type: vasovagal syncope Qualified Code(s): R55 - Syncope and collapse (2) Acute kidney injury Code(s): N17.9 - ACUTE KIDNEY FAILURE, UNSPECIFIED (3) Anemia due to blood loss, acute Code(s): D62 - ACUTE POSTHEMORRHAGIC ANEMIA (4) Atrial fibrillation with rapid ventricular response Code(s): I48.91 - UNSPECIFIED ATRIAL FIBRILLATION (5) Chronic lymphocytic leukemia (CLL), B-cell Code(s): C91.10 - CHRONIC LYMPHOCYTIC LEUK OF B-CELL TYPE NOT ACHIEVE REMIS Qualifiers: Leukemia Active/Remission status: in remission Qualified Code(s): C91.11 - Chronic lymphocytic leukemia of B-cell type in remission (6) Hyperlipidemia Code(s): E78.5 - HYPERLIPIDEMIA, UNSPECIFIED Qualifiers: Hyperlipidemia type: pure hypercholesterolemia Qualified Code(s): E78.00 - Pure hypercholesterolemia, unspecified; E78.0 - Pure hypercholesterolemia (7) Mesenteric infarction Code(s): K55.069 - ACUTE INFARCTION OF INTESTINE, PART AND EXTENT UNSPECIFIED (8) TIA (transient ischemic attack) Code(s): G45.9 - TRANSIENT CEREBRAL ISCHEMIC ATTACK, UNSPECIFIED Qualifiers: Transient cerebral ischemia type: unspecified Qualified Code(s): G45.9 - Transient cerebral ischemic attack, unspecified (9) Urinary hesitancy Code(s): R39.11 - HESITANCY OF MICTURITION (10) Weakness due to cerebrovascular accident (CVA) Code(s): I63.9 - CEREBRAL INFARCTION, UNSPECIFIED; R53.1 - WEAKNESS Assessment/Plan Echo: 01/23/2018 Normal biventricular size and fxn, mild-mod TR, mild , mod LAE, mild HILTON 1. Syncope in setting of anemia and intravascular volume depletion from overdiuresis 2. 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 CAD angina pectoris, stable 4. Diastolic LV dysfunction with chronic class 0-I NYHA classification LV failure, compensated/euvolemic 5. Persistent atrial fibrillation with improved rate-control [id number] score of 6 on A/C now off DOAC's/Eliquis 6. History of CVA/TIA 7. HTN 8. Hypercholesterolemia 9. 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 History of recurrent diverticular bleed 11. Acute on CKD (pre-renal) referable to volume depletion from overdiuresis improving 12. History of hematuria, urinary retention with chronic chamberlain 13. History of CLL with anemia and thrombocytopenia on Imbruvica 14. UTI/gross hematuria PLAN: 1. Transfused pRBC and judicious hydration with monitor renal recovery and electrolytes, holding diuretics in meantime 2. Resume Eliquis 2.5 bid once hematuria resolves, continue Metoprolol 50 bid, Lipitor 20 qhs, Cardizem CD 120 qd for improved rate-control 3. Transfuse to maintain Hg equal or > 8.0 4. Completed empiric zosyn course per ID, GI protection 5. Urology plans cystoscopy and TURBT once rate-control improves, may proceed from CV-standpoint
--- NOTE | 2018-08-21 14:32 | PN ---
Progress Note (short form) - Note Progress Note: Renal follow up for JOON on CKD Pt seen and examined at the bedside confused denies any sob, cp, abd pain chamberlain in place with hematuria Vital Signs Temperature 98.7 F 08/21/18 09:00 Pulse Rate 90 08/21/18 09:00 Respiratory Rate 20 08/21/18 09:00 Blood Pressure 101/68 08/21/18 09:00 O2 Sat by Pulse Oximetry (%) 98 08/21/18 09:00 Intake & Output 08/18/18 08/19/18 08/20/18 08/21/18 23:59 23:59 23:59 23:59 Intake Total 2595 1640 410 240 Output Total 400 1500 250 400 Balance 2195 140 160 -160 NAD confused No LE edema chamberlain with bloody urine CBC, BMP 08/21/18 06:00 08/21/18 05:30 Current Medications Allopurinol (Zyloprim -) 100 mg PO DAILY [facility] Last Admin: 08/21/18 10:07 Dose: 100 mg Amino Acids (Prosource No Carb Liquid Pkt) 30 ml PO BID@0800,1730 [facility] Last Admin: 08/21/18 10:09 Dose: 30 ml Atorvastatin Calcium (Lipitor -) 20 mg PO HS [facility] Last Admin: 08/20/18 21:05 Dose: 20 mg Bacitracin (Bacitracin -) 1 applic TP BID [facility] Last Admin: 08/21/18 10:08 Dose: 1 applic Diltiazem HCl (Cardizem Cd -) 120 mg PO DAILY [facility] Last Admin: 08/21/18 10:07 Dose: 120 mg Dextrose/Sodium Chloride (D5-1/2ns -) 1,000 mls @ 60 mls/hr IV ASDIR [facility] Last Admin: 08/20/18 18:00 Dose: 60 mls/hr Melatonin (Melatonin) 5 mg PO HS [facility] Last Admin: 08/20/18 21:04 Dose: 5 mg Metoprolol Succinate (Toprol Xl -) 50 mg PO BID [facility] Last Admin: 08/21/18 10:08 Dose: 50 mg Mirtazapine (Remeron -) 7.5 mg PO HS [facility] Last Admin: 08/20/18 21:04 Dose: 7.5 mg Ptnt's Own Med( Ibrutinib [Imbruvica ] 120 Mg) 120 mg PO DAILY [facility] Last Admin: 08/21/18 10:08 Dose: 120 mg Pantoprazole Sodium (Protonix -) 40 mg PO BID [facility] Last Admin: 08/21/18 10:08 Dose: 40 mg 87 year old gentleman known to our service with 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 #Syncope in setting of anemia and intravascular volume depletion #JOON secondary to volume depletion #Lactic acidosis #Leukocytosis #Urinary retention with chronic chamberlain #Hx of LE edema #Hematuria Renal function improved pt is non-oliguric continue gentle IVF urology consult noted, will order renal and bladder US Trend renal functoin adn electrolytes Abx as per ID cultures w/o growth thus far Peewee Torres DO
[2018-08-21] MEDS: DEXTROSE 5%-0.45% SALINE 1,000 ML IV SCH (17:50)
[2018-08-21] MEDS: ATORVASTATIN CA 20 MG TABLET (FP) PO SCH (21:17)
[2018-08-21] MEDS: MELATONIN 5 MG TABLETS PO SCH (21:17)
[2018-08-21] MEDS: MIRTAZAPINE 15 MG TABLET (FP) PO SCH (21:18)
[2018-08-22 07:04] LABS: BASO % 0.4 % (0-2.0); EOS % 0.1 % (0-4.5)
[2018-08-22 07:25] LABS: HEMOGLOBIN 10.7 GM/dL (11.7-16.9); LYMPH % 29.8 % (8-40); MCH 30.2 pg (25.7-33.7); MCHC 32.5 g/dl (32.0-35.9); MEAN CELL VOLUME 92.7 fl (80-96); MONO % 4.1 % (3.8-10.2); NEUT % 65.6 % (42.8-82.8); PLATELET COUNT 151 K/MM3 (134-434); RBC 3.56 M/mm3 (4.00-5.60); RDW 18.1 % (11.9-15.9); WHITE BLOOD COUNT 9.8 K/mm3 (4.0-10.0)
[2018-08-22 07:52] LABS: ALBUMIN 1.5 g/dl (3.4-5.0); ALK PHOS 91 U/L (45-117); ANION GAP 5 MMOL/L (8-16); BILIRUBIN,TOTAL 0.7 mg/dL (0.2-1); BLOOD UREA NITROGEN 37 mg/dL (7-18); CHLORIDE 117 mmol/L (98-107); CO2 23 mmol/L (21-32); CREATININE 2.1 mg/dL (0.55-1.3); PHOSPHOROUS 3.7 mg/dL (2.5-4.9); POTASSIUM 4.2 mmol/L (3.5-5.1); SGOT/AST 22 U/L (15-37); SGPT/ALT 22 U/L (13-61); SODIUM 146 mmol/L (136-145); TOT PROT 4.8 g/dl (6.4-8.2)
[2018-08-22 07:53] LABS: GLUCOSE,RANDOM 45 mg/dL (74-106)
--- NOTE | 2018-08-22 09:02 | PN ---
Progress Note, Physician History of Present Illness: Hematuria in chamberlain bag, confused in bed in gray vest. - Current Medication List Current Medications: Active Medications Allopurinol (Zyloprim -) 100 mg PO DAILY [facility] Last Admin: 08/21/18 10:07 Dose: 100 mg Amino Acids (Prosource No Carb Liquid Pkt) 30 ml PO BID@0800,1730 [facility] Last Admin: 08/21/18 17:42 Dose: Not Given Atorvastatin Calcium (Lipitor -) 20 mg PO HS [facility] Last Admin: 08/21/18 21:17 Dose: 20 mg Bacitracin (Bacitracin -) 1 applic TP BID [facility] Last Admin: 08/21/18 21:17 Dose: 1 applic Diltiazem HCl (Cardizem Cd -) 120 mg PO DAILY [facility] Last Admin: 08/21/18 10:07 Dose: 120 mg Dextrose/Sodium Chloride (D5-1/2ns -) 1,000 mls @ 60 mls/hr IV ASDIR [facility] Last Admin: 08/21/18 17:50 Dose: 60 mls/hr Melatonin (Melatonin) 5 mg PO [facility] Last Admin: 08/21/18 21:17 Dose: 5 mg Metoprolol Succinate (Toprol Xl -) 50 mg PO BID [facility] Last Admin: 08/21/18 21:17 Dose: 50 mg Mirtazapine (Remeron -) 7.5 mg PO [facility] Last Admin: 08/21/18 21:18 Dose: 7.5 mg Ptnt's Own Med( Ibrutinib [Imbruvica ] 120 Mg) 120 mg PO DAILY [facility] Last Admin: 08/21/18 10:08 Dose: 120 mg Pantoprazole Sodium (Protonix -) 40 mg PO BID [facility] Last Admin: 08/21/18 21:17 Dose: 40 mg - Objective Vital Signs: Vital Signs Temperature 98.0 F 08/22/18 05:00 Pulse Rate 94 H 08/22/18 05:00 Respiratory Rate 18 08/22/18 05:00 Blood Pressure 100/56 L 08/22/18 05:00 O2 Sat by Pulse Oximetry (%) 96 08/21/18 21:00 Constitutional: Yes: No Distress, Calm, Thin Neck: Yes: Supple Cardiovascular: Yes: Pulse Irregular Respiratory: Yes: Regular, Diminished Gastrointestinal: Yes: Normal Bowel Sounds, Soft Genitourinary: Yes: Chamberlain Present, Hematuria Edema: No Labs: CBC, BMP 08/22/18 05:30 08/22/18 05:30 INR, PTT INR 1.12 (0.83-1.09) H 08/16/18 07:30 - ....Imaging Ultrasound: Report Reviewed (Moderate atrophic left kidney with mild-mod hydronephrosis) Problem List - Problems (1) Syncope Code(s): R55 - SYNCOPE AND COLLAPSE Qualifiers: Syncope type: vasovagal syncope Qualified Code(s): R55 - Syncope and collapse (2) Acute kidney injury Code(s): N17.9 - ACUTE KIDNEY FAILURE, UNSPECIFIED (3) Anemia due to blood loss, acute Code(s): D62 - ACUTE POSTHEMORRHAGIC ANEMIA (4) Atrial fibrillation with rapid ventricular response Code(s): I48.91 - UNSPECIFIED ATRIAL FIBRILLATION (5) Chronic lymphocytic leukemia (CLL), B-cell Code(s): C91.10 - CHRONIC LYMPHOCYTIC LEUK OF B-CELL TYPE NOT ACHIEVE REMIS Qualifiers: Leukemia Active/Remission status: in remission Qualified Code(s): C91.11 - Chronic lymphocytic leukemia of B-cell type in remission (6) Hyperlipidemia Code(s): E78.5 - HYPERLIPIDEMIA, UNSPECIFIED Qualifiers: Hyperlipidemia type: pure hypercholesterolemia Qualified Code(s): E78.00 - Pure hypercholesterolemia, unspecified; E78.0 - Pure hypercholesterolemia (7) Mesenteric infarction Code(s): K55.069 - ACUTE INFARCTION OF INTESTINE, PART AND EXTENT UNSPECIFIED (8) TIA (transient ischemic attack) Code(s): G45.9 - TRANSIENT CEREBRAL ISCHEMIC ATTACK, UNSPECIFIED Qualifiers: Transient cerebral ischemia type: unspecified Qualified Code(s): G45.9 - Transient cerebral ischemic attack, unspecified (9) Urinary hesitancy Code(s): R39.11 - HESITANCY OF MICTURITION (10) Weakness due to cerebrovascular accident (CVA) Code(s): I63.9 - CEREBRAL INFARCTION, UNSPECIFIED; R53.1 - WEAKNESS Assessment/Plan Echo: 01/23/2018 Normal biventricular size and fxn, mild-mod TR, mild , mod LAE, mild HILTON 1. Syncope in setting of anemia and intravascular volume depletion from overdiuresis 2. 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 CAD angina pectoris, stable 4. Diastolic LV dysfunction with chronic class 0-I NYHA classification LV failure, compensated/euvolemic 5. Persistent atrial fibrillation with improved rate-control [id number] score of 6 on A/C now off DOAC's/Eliquis 6. History of CVA/TIA 7. HTN 8. Hypercholesterolemia 9. 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 History of recurrent diverticular bleed 11. Acute on CKD (pre-renal) referable to volume depletion from overdiuresis improving, chronic mild-moderate left hydronephrosis 12. Hematuria, urinary retention with chronic chamberlain 13. 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 Transfused pRBC and judicious hydration with monitor renal recovery and electrolytes, holding diuretics in meantime 2. Resume Eliquis 2.5 bid once hematuria resolves, continue Metoprolol 50 bid, Lipitor 20 qhs, Cardizem CD 120 qd for rate-control 3. Transfuse to maintain Hgb equal or > 8.0 4. Completed empiric zosyn course per ID, GI protection 5. Urology plans cystoscopy and TURBT, may proceed from CV-standpoint as rate- control has improved
[2018-08-22] MEDS: BACITRACIN 15 GM TUBE TOPICAL OINTMENT TP SCH ×2 (09:06→22:21)
[2018-08-22] MEDS: PANTOPRAZOLE 40 MG TABLET (FP) PO SCH ×3 (09:07→22:26)
[2018-08-22] MEDS: IBRUTINIB PO SCH (09:07)
[2018-08-22] MEDS: ALLOPURINOL 100 MG TABLET (FP) PO SCH (09:08)
--- NOTE | 2018-08-22 09:08 | PN ---
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 Pt reported not feeling well for few days prior to admission. ED note indicated he had been feeling weak and lightheaded for the past week and has had multiple times where he needed to sit down to rest. On day prior to admission, he had an episode of passing out while standing after feeling lightheaded and weak. Unclear how long he had LOC. Of note, pt was evaluated here in the ED on 08/08 for hematuria and signed out AMA when admission was recommended due to low BP. I was consulted for altered mental status. CT head completed and reviewed and no acute changes. Degenerative subluxation of C7 in relation to T1, C6 on C spine CT. Today seems more confused, was not verbal with me. Per nurse was verbalizing with her earlier. Seems to be different from his mental status last few days. Ordered CT head to evaluate acute changes. Allergies warfarin sodium [From Coumadin] Allergy (Severe, Verified 08/14/18 13:30) bleeding Active Medications Allopurinol (Zyloprim -) 100 mg PO DAILY [facility] Last Admin: 08/21/18 10:07 Dose: 100 mg Amino Acids (Prosource No Carb Liquid Pkt) 30 ml PO BID@0800,1730 [facility] Last Admin: 08/21/18 17:42 Dose: Not Given Atorvastatin Calcium (Lipitor -) 20 mg PO HS [facility] Last Admin: 08/21/18 21:17 Dose: 20 mg Bacitracin (Bacitracin -) 1 applic TP BID [facility] Last Admin: 08/21/18 21:17 Dose: 1 applic Diltiazem HCl (Cardizem Cd -) 120 mg PO DAILY [facility] Last Admin: 08/21/18 10:07 Dose: 120 mg Dextrose/Sodium Chloride (D5-1/2ns -) 1,000 mls @ 60 mls/hr IV ASDIR [facility] Last Admin: 08/21/18 17:50 Dose: 60 mls/hr Melatonin (Melatonin) 5 mg PO HS [facility] Last Admin: 08/21/18 21:17 Dose: 5 mg Metoprolol Succinate (Toprol Xl -) 50 mg PO BID [facility] Last Admin: 08/21/18 21:17 Dose: 50 mg Mirtazapine (Remeron -) 7.5 mg PO HS [facility] Last Admin: 08/21/18 21:18 Dose: 7.5 mg Ptnt's Own Med( Ibrutinib [Imbruvica ] 120 Mg) 120 mg PO DAILY [facility] Last Admin: 08/21/18 10:08 Dose: 120 mg Pantoprazole Sodium (Protonix -) 40 mg PO BID [facility] Last Admin: 08/21/18 21:17 Dose: 40 mg PHYSICAL EXAMINATION Vital Signs Period Temp Pulse Resp BP Sys/Gerardo Pulse Ox Last 24 Hr 97.3 F-98.2 F 90-98 18-18 100-135/56-83 96 GENERAL: Awake, alert, in no acute distress. HEAD: ecchymosis and abrasion left forehead, hematoma around left eye. abrasion below left eye EYES: Pupils equal, round and reactive to light, extraocular movements intact, sclera anicteric, conjunctiva clear. No lid lag. EARS, NOSE, THROAT: Ears normal, nares patent, oropharynx clear without exudates. Moist mucous membranes. NECK: Normal range of motion, supple without lymphadenopathy, JVD, or masses. LUNGS: Breath sounds equal, clear to auscultation bilaterally. No wheezes, and no crackles. No accessory muscle use. HEART: Regular rate and rhythm, normal S1 and S2 without murmur, rub or gallop. ABDOMEN: Soft, nontender, not distended, normoactive bowel sounds, no guarding, no rebound, no masses. No hepatomegaly or splenomegaly. chamberlain draining bloody urine MUSCULOSKELETAL: Normal range of motion at all joints. No bony deformities or tenderness. No CVA tenderness. UPPER EXTREMITIES: 2+ pulses, warm, well-perfused. No cyanosis. No clubbing. No peripheral edema. LOWER EXTREMITIES: 2+ pulses, warm, well-perfused. No calf tenderness. No peripheral edema. chronic vascular skin changes B/L LE: darkened, hypertrophic skin. NEUROLOGICAL: Awake, alert, dysarthric, sensory intact, moving extremities grossly, gait deferred PSYCHIATRIC: Cooperative. Good eye contact. Appropriate mood and affect. SKIN: Warm, dry, normal turgor, no rashes or lesions noted, normal capillary refill. CBCD WBC 9.8 K/mm3 (4.0-10.0) 08/22/18 05:30 RBC 3.56 M/mm3 (4.00-5.60) L 08/22/18 05:30 Hgb 10.7 GM/dL (11.7-16.9) L 08/22/18 05:30 Hct 33.0 % (35.4-49) L 08/22/18 05:30 MCV 92.7 fl (80-96) 08/22/18 05:30 MCHC 32.5 g/dl (32.0-35.9) 08/22/18 05:30 RDW 18.1 % (11.9-15.9) H 08/22/18 05:30 Plt Count 151 K/MM3 (134-434) 08/22/18 05:30 MPV 11.0 fl (7.5-11.1) 08/22/18 05:30 CMP Sodium 146 mmol/L (136-145) H 08/22/18 05:30 Potassium 4.2 mmol/L (3.5-5.1) 08/22/18 05:30 Chloride 117 mmol/L (98-107) H 08/22/18 05:30 Carbon Dioxide 23 mmol/L (21-32) 08/22/18 05:30 Anion Gap 5 MMOL/L (8-16) L 08/22/18 05:30 BUN 37 mg/dL (7-18) H 08/22/18 05:30 Creatinine 2.1 mg/dL (0.55-1.3) H 08/22/18 05:30 Creat Clearance w eGFR 30.02 (>60) 08/22/18 05:30 Calcium 8.0 mg/dL (8.5-10.1) L 08/22/18 05:30 Total Bilirubin 0.7 mg/dL (0.2-1) 08/22/18 05:30 AST 22 U/L (15-37) 08/22/18 05:30 ALT 22 U/L (13-61) 08/22/18 05:30 Alkaline Phosphatase 91 U/L (45-117) 08/22/18 05:30 Total Protein 4.8 g/dl (6.4-8.2) L 08/22/18 05:30 Albumin 1.5 g/dl (3.4-5.0) L 08/22/18 05:[address] head Impression. No evidence of acute intracranial hemorrhage, edema, midline shift, mass effect , or skull fracture. No CT evidence of acute territorial infarction. CT c spine Impression. No acute bony abnormalities are seen. Intact odontoid. The predental space is not widened. Multilevel cervical spondylosis. Facet joint arthropathy. Osteoarthritis of uncovertebral joints. 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 Pt reported not feeling well for few days prior to admission. ED note indicated he had been feeling weak and lightheaded for the past week and has had multiple times where he needed to sit down to rest. On day prior to admission, he had an episode of passing out while standing after feeling lightheaded and weak. Unclear how long he had LOC. Of note, pt was evaluated here in the ED on 08/08 for hematuria and signed out AMA when admission was recommended due to low BP. He had a chamberlain catheter in place from home which was draining bloody urine. I was consulted for alerted mental status. CT head completed and reviewed and no acute changes Will repeat as patient more confused this AM Infectious treatment, can certainly alter mental status in elderly, IV Abx per ID. Roly vest in place and wrist restraints. Medically optimize, monitor kidney function as patient with chronic kidney disease, renal note reviewed Urology note reviewed Monitor H/H, anemia optimization. Cards follow up IV/PO hydration DVT ppx
--- NOTE | 2018-08-22 09:28 | PN ---
Physical Exam: SUBJECTIVE: Patient seen and examined at bedside. No overnight events. No new complaints. Seems more confused today. Oriented to person. [place] vest applied. Denies CP, [place], SOB, abdominal pain, nausea and vomiting. OBJECTIVE: Vital Signs Period Temp Pulse Resp BP Sys/Gerardo Pulse Ox Last 24 Hr 97.3 F-98.2 F 90-98 18-18 100-135/56-83 96 GENERAL:Awake and alert, anxious, NAD EYES: PERRLA,EOMI., sclera anicteric, conjunctiva clear. EARS, NOSE, THROAT: Moist mucous membranes. NECK: Supple without lymphadenopathy, JVD, or masses. LUNGS: CTAB. No wheezes, and no crackles. No accessory muscle use. HEART: Irregularly irregular, normal S1 and S2 without murmur, rub or gallop. ABDOMEN: Soft, NTND, NABS, no guarding, no rebound, no masses. No hepatomegaly or splenomegaly. UPPER EXTREMITIES: 2+ pulses, warm, well-perfused. No cyanosis. No clubbing. Cap refill No peripheral edema. LOWER EXTREMITIES: 2+ pulses, warm, well-perfused. No calf tenderness. No peripheral edema. NEUROLOGICAL: Cranial nerves II-XII intact. no facial droop. Normal speech. gait not observed. PSYCHIATRIC: anxious SKIN: multiple bruising on extremities. Laboratory Results - last 24 hr 08/22/18 08/22/18 05:30 05:30 WBC 9.8 RBC 3.56 L Hgb 10.7 L Hct 33.0 L MCV 92.7 MCH 30.2 MCHC 32.5 RDW 18.1 H Plt Count 151 MPV 11.0 Absolute Neuts (auto) 6.4 Neutrophils % 65.6 Lymphocytes % 29.8 Monocytes % 4.1 Eosinophils % 0.1 D Basophils % 0.4 Nucleated RBC % 0 Sodium 146 H Potassium 4.2 Chloride 117 H Carbon Dioxide 23 Anion Gap 5 L BUN 37 H Creatinine 2.1 H Creat Clearance w eGFR 30.02 Random Glucose 45 L* Calcium 8.0 L Phosphorus 3.7 Magnesium 2.0 Total Bilirubin 0.7 AST 22 ALT 22 Alkaline Phosphatase 91 Total Protein 4.8 L Albumin 1.5 L Active Medications Generic Name Dose Route Start Last Admin Trade Name Freq PRN Reason Stop Dose Admin Allopurinol 100 mg 08/15/18 10:00 08/21/18 10:07 Zyloprim - PO 100 mg DAILY [facility] Administration Amino Acids 30 ml 08/18/18 17:30 08/21/18 17:42 Prosource No Carb Liquid Pkt PO Not Given BID@0800,1730 [facility] Atorvastatin Calcium 20 mg 08/14/18 22:00 08/21/18 21:17 Lipitor - PO 20 mg HS [facility] Administration Bacitracin 1 applic 08/15/18 13:15 08/21/18 21:17 Bacitracin - TP 1 applic BID [facility] Administration Diltiazem HCl 120 mg 08/18/18 11:45 08/21/18 10:07 Cardizem Cd - PO 120 mg DAILY [facility] Administration Dextrose/Sodium Chloride 1,000 mls @ 60 mls/hr 08/20/18 15:15 08/21/18 17:50 D5-1/2ns - IV 60 mls/hr ASDIR [facility] Administration Melatonin 5 mg 08/14/18 22:00 08/21/18 21:17 Melatonin PO 5 mg HS [facility] Administration Metoprolol Succinate 50 mg 08/14/18 22:00 08/21/18 21:17 Toprol Xl - PO 50 mg BID [facility] Administration Mirtazapine 7.5 mg 08/18/18 22:00 08/21/18 21:18 Remeron - PO 7.5 mg HS [facility] Administration Ptnt's Own Med( 120 mg 08/20/18 18:15 08/21/18 10:08 Ibrutinib [Imbruvica PO 120 mg ] 120 Mg) DAILY [facility] Administration Pantoprazole Sodium 40 mg 08/14/18 22:00 08/21/18 21:17 Protonix - PO 40 mg BID [facility] Administration ASSESSMENT/PLAN: 87 yo male with a significant past medical history of 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 Reyes at [facility]. * currently receiving Imbruvica.will continue * LDH/Uric acid. WNL (2) Anemia Assessment/Plan: Most likely secondary acute blood loss with hematuria. * Urology plans cystoscopy and TURBT once rate-control improves * will monitory H/H * maintain Hgb > 8 (3) Syncope Assessment/Plan: Most likely secondary to acute blood loss and volume depletion. * EKG * Echo reported. * Cardiology consult appreciated * Fall precautions. * Telemetry monitoring. (4) Afib Assessment/Plan: eliquis on hold 2/2 acute hematuria. * to be restarted once hematuria resolves. (5) Hematuria Assessment/Plan: Followed by urology Dr. Padilla. * Will check LDH/Uric acid Visit type - Emergency Visit Emergency Visit: Yes ED Registration Date: 08/14/18 Care time: The patient presented to the Emergency Department on the above date and was hospitalized for further evaluation of their emergent condition. - New Patient This patient is new to me today: No - Critical Care Critical Care patient: No - Discharge Referral Referred to [facility] Med [facility].C.: No
--- NOTE | 2018-08-22 12:08 | PN ---
Progress Note, Physician Chief Complaint: Sepsis Hematuria Anemia History of Present Illness: NAD in bed alert oriented to place, name, presidents name, year only Indwelling chamberlain cath +hematuria Anemia stable Seen by Urology Cleared by Cardiology for Cystoscopy Renal fxn improving - Current Medication List Current Medications: Active Medications Allopurinol (Zyloprim -) 100 mg PO DAILY [facility] Last Admin: 08/21/18 10:07 Dose: 100 mg Amino Acids (Prosource No Carb Liquid Pkt) 30 ml PO BID@0800,1730 [facility] Last Admin: 08/21/18 17:42 Dose: Not Given Atorvastatin Calcium (Lipitor -) 20 mg PO HS [facility] Last Admin: 08/21/18 21:17 Dose: 20 mg Bacitracin (Bacitracin -) 1 applic TP BID [facility] Last Admin: 08/21/18 21:17 Dose: 1 applic Diltiazem HCl (Cardizem Cd -) 120 mg PO DAILY [facility] Last Admin: 08/21/18 10:07 Dose: 120 mg Dextrose/Sodium Chloride (D5-1/2ns -) 1,000 mls @ 60 mls/hr IV ASDIR [facility] Last Admin: 08/21/18 17:50 Dose: 60 mls/hr Melatonin (Melatonin) 5 mg PO HS [facility] Last Admin: 08/21/18 21:17 Dose: 5 mg Metoprolol Succinate (Toprol Xl -) 50 mg PO BID [facility] Last Admin: 08/21/18 21:17 Dose: 50 mg Mirtazapine (Remeron -) 7.5 mg PO HS [facility] Last Admin: 08/21/18 21:18 Dose: 7.5 mg Ptnt's Own Med( Ibrutinib [Imbruvica ] 120 Mg) 120 mg PO DAILY [facility] Last Admin: 08/21/18 10:08 Dose: 120 mg Pantoprazole Sodium (Protonix -) 40 mg PO BID [facility] Last Admin: 08/21/18 21:17 Dose: 40 mg - Objective Vital Signs: Vital Signs Temperature 98.0 F 08/22/18 05:00 Pulse Rate 94 H 08/22/18 05:00 Respiratory Rate 18 08/22/18 05:00 Blood Pressure 100/56 L 08/22/18 05:00 O2 Sat by Pulse Oximetry (%) 96 08/21/18 21:00 Constitutional: Yes: Well Nourished, No Distress, Calm Cardiovascular: Yes: Pulse Irregular Respiratory: Yes: Regular Gastrointestinal: Yes: Normal Bowel Sounds, Soft Genitourinary: Yes: Chamberlain Present, Hematuria Musculoskeletal: Yes: Muscle Weakness Edema: Yes Edema: LLE: 1+, RLE: 1+ Peripheral Pulses WNL: Yes Neurological: Yes: Alert, Oriented Psychiatric: Yes: Alert, Oriented Labs: CBC, BMP 08/22/18 05:30 08/22/18 05:30 INR, PTT INR 1.12 (0.83-1.09) H 08/16/18 07:30 Problem List - Problems (1) Afib Assessment/Plan: -Eliquis on hold due to hematuria -tele monitoring -Cardiology on board Code(s): I48.91 - UNSPECIFIED ATRIAL FIBRILLATION Qualifiers: Atrial fibrillation type: chronic Qualified Code(s): I48.2 - Chronic atrial fibrillation (2) Anemia Assessment/Plan: 12/20 to hematuria -Hold eliquis -Hg stable -Hematology consult -received 2 units of PRBC this admission Code(s): D64.9 - ANEMIA, UNSPECIFIED Qualifiers: Anemia type: other cause Other causes of anemia: antineoplastic chemotherapy Qualified Code(s): D64.81 - Anemia due to antineoplastic chemotherapy; T45.1X5A - Adverse effect of antineoplastic and immunosuppressive drugs, initial encounter (3) Chronic kidney disease (CKD) Assessment/Plan: at baseline now -monitor trend Code(s): N18.9 - CHRONIC KIDNEY DISEASE, UNSPECIFIED Qualifiers: Chronic kidney disease stage: stage 3 (moderate) Qualified Code(s): N18.3 - Chronic kidney disease, stage 3 (moderate) (4) Chronic lymphocytic leukemia (CLL), B-cell Code(s): C91.10 - CHRONIC LYMPHOCYTIC LEUK OF B-CELL TYPE NOT ACHIEVE REMIS Qualifiers: Leukemia Active/Remission status: in remission Qualified Code(s): C91.11 - Chronic lymphocytic leukemia of B-cell type in remission (5) Hematuria Assessment/Plan: -chamberlain cath -urology consult -UC negative -last U/S bladder showed blood clot in bladder, repeat pending -Cystoscopy - cleared by cardiology -H/H stable Code(s): R31.9 - HEMATURIA, UNSPECIFIED Qualifiers: Hematuria type: gross Qualified Code(s): R31.0 - Gross hematuria (6) Assessment/Plan: -Roly barbosa -Psychiatry consult -started on Remeron 7.5 mg po HS Code(s): F05 - DELIRIUM DUE TO KNOWN PHYSIOLOGICAL CONDITION Assessment/Plan see problem list physical therapy Cardiology clearance done for cystoscopy, nephrology to clear
[2018-08-22] MEDS: AMINO ACIDS/PROTEIN HYDROLYS 30 ML LIQUID.PKT PO SCH ×2 (13:13→17:51)
--- NOTE | 2018-08-22 16:28 | PN ---
Progress Note, Physician Chief Complaint: Sepsis Hematuria Anemia History of Present Illness: Much more confused today just returned from U/S and CT Repeat CT head negative Indwelling chamberlain cath +hematuria Anemia stable Seen by Urology Cleared by Cardiology for Cystoscopy Renal fxn improving - Current Medication List Current Medications: Active Medications Allopurinol (Zyloprim -) 100 mg PO DAILY [facility] Last Admin: 08/22/18 09:08 Dose: 100 mg Amino Acids (Prosource No Carb Liquid Pkt) 30 ml PO BID@0800,1730 [facility] Last Admin: 08/22/18 13:13 Dose: Not Given Atorvastatin Calcium (Lipitor -) 20 mg PO HS [facility] Last Admin: 08/21/18 21:17 Dose: 20 mg Bacitracin (Bacitracin -) 1 applic TP BID [facility] Last Admin: 08/22/18 09:06 Dose: 1 applic Diltiazem HCl (Cardizem Cd -) 120 mg PO DAILY [facility] Last Admin: 08/22/18 09:07 Dose: 120 mg Dextrose/Sodium Chloride (D5-1/2ns -) 1,000 mls @ 60 mls/hr IV ASDIR [facility] Last Admin: 08/21/18 17:50 Dose: 60 mls/hr Metoprolol Succinate (Toprol Xl -) 50 mg PO BID [facility] Last Admin: 08/22/18 09:08 Dose: 50 mg Mirtazapine (Remeron -) 7.5 mg PO HS [facility] Last Admin: 08/21/18 21:18 Dose: 7.5 mg Ptnt's Own Med( Ibrutinib [Imbruvica ] 120 Mg) 120 mg PO DAILY [facility] Last Admin: 08/22/18 09:07 Dose: 120 mg Pantoprazole Sodium (Protonix -) 40 mg PO BID [facility] Last Admin: 08/22/18 09:07 Dose: 40 mg - Objective Vital Signs: Vital Signs Temperature 98.2 F 08/22/18 14:05 Pulse Rate 92 H 08/22/18 14:05 Respiratory Rate 18 08/22/18 14:05 Blood Pressure 123/68 08/22/18 14:05 O2 Sat by Pulse Oximetry (%) 96 08/21/18 21:00 Constitutional: Yes: Well Nourished, No Distress, Calm Cardiovascular: Yes: Regular Rate and Rhythm Respiratory: Yes: Regular Gastrointestinal: Yes: Normal Bowel Sounds, Soft Musculoskeletal: Yes: Muscle Weakness Edema: Yes Edema: LLE: 1+, RLE: 1+ Peripheral Pulses WNL: Yes Neurological: Yes: Alert, Confusion, Lethargy Psychiatric: Yes: Alert Labs: CBC, BMP 08/22/18 05:30 08/22/18 05:30 INR, PTT INR 1.12 (0.83-1.09) H 08/16/18 07:30 Problem List - Problems (1) Afib Assessment/Plan: -Eliquis on hold due to hematuria -tele monitoring -Cardiology on board Code(s): I48.91 - UNSPECIFIED ATRIAL FIBRILLATION Qualifiers: Atrial fibrillation type: chronic Qualified Code(s): I48.2 - Chronic atrial fibrillation (2) Anemia Assessment/Plan: 12/20 to hematuria -Hold eliquis -Hg stable -Hematology consult -received 2 units of PRBC this admission Code(s): D64.9 - ANEMIA, UNSPECIFIED Qualifiers: Anemia type: other cause Other causes of anemia: antineoplastic chemotherapy Qualified Code(s): D64.81 - Anemia due to antineoplastic chemotherapy; T45.1X5A - Adverse effect of antineoplastic and immunosuppressive drugs, initial encounter (3) Chronic kidney disease (CKD) Assessment/Plan: at baseline now -monitor trend -U/S renal/bladder left hydronephrosis -Cystoscopy cancelled today due to AMS, reassess Saturday Code(s): N18.9 - CHRONIC KIDNEY DISEASE, UNSPECIFIED Qualifiers: Chronic kidney disease stage: stage 3 (moderate) Qualified Code(s): N18.3 - Chronic kidney disease, stage 3 (moderate) (4) Chronic lymphocytic leukemia (CLL), B-cell Code(s): C91.10 - CHRONIC LYMPHOCYTIC LEUK OF B-CELL TYPE NOT ACHIEVE REMIS Qualifiers: Leukemia Active/Remission status: in remission Qualified Code(s): C91.11 - Chronic lymphocytic leukemia of B-cell type in remission (5) Hematuria Assessment/Plan: -chamberlain cath -urology consult -UC negative -last U/S bladder showed blood clot in bladder, repeat left hydronephrosis -Cystoscopy - cleared by cardiology -H/H stable Code(s): R31.9 - HEMATURIA, UNSPECIFIED Qualifiers: Hematuria type: gross Qualified Code(s): R31.0 - Gross hematuria (6) Assessment/Plan: -Roly barbosa -Psychiatry consult -started on Remeron 7.5 mg po HS Code(s): F05 - DELIRIUM DUE TO KNOWN PHYSIOLOGICAL CONDITION Assessment/Plan see problem list physical therapy Cardiology clearance done for cystoscopy
--- NOTE | 2018-08-22 16:38 | PN ---
Progress Note (short form) - Note Progress Note: Renal follow up for JOON on CKD Pt seen and examined at the bedside awake and alert but confused making urine via catheter no overnight events nephew at the bedside Vital Signs Temperature 98.2 F 08/22/18 16:04 Pulse Rate 92 H 08/22/18 16:04 Respiratory Rate 18 08/22/18 16:04 Blood Pressure 123/68 08/22/18 16:04 O2 Sat by Pulse Oximetry (%) 96 08/22/18 16:04 Intake & Output 08/19/18 08/20/18 08/21/18 08/22/18 23:59 23:59 23:59 23:59 Intake Total 1640 722 563 0239 Output Total 1500 250 700 100 Balance 140 333 77 5054 NAD confused No LE edema chamberlain with bloody urine CBC, BMP 08/22/18 05:30 08/22/18 05:30 Current Medications Allopurinol (Zyloprim -) 100 mg PO DAILY [facility] Last Admin: 08/22/18 09:08 Dose: 100 mg Amino Acids (Prosource No Carb Liquid Pkt) 30 ml PO BID@0800,1730 [facility] Last Admin: 08/22/18 13:13 Dose: Not Given Atorvastatin Calcium (Lipitor -) 20 mg PO HS [facility] Last Admin: 08/21/18 21:17 Dose: 20 mg Bacitracin (Bacitracin -) 1 applic TP BID [facility] Last Admin: 08/22/18 09:06 Dose: 1 applic Diltiazem HCl (Cardizem Cd -) 120 mg PO DAILY [facility] Last Admin: 08/22/18 09:07 Dose: 120 mg Dextrose/Sodium Chloride (D5-1/2ns -) 1,000 mls @ 60 mls/hr IV ASDIR [facility] Last Admin: 08/21/18 17:50 Dose: 60 mls/hr Metoprolol Succinate (Toprol Xl -) 50 mg PO BID [facility] Last Admin: 08/22/18 09:08 Dose: 50 mg Mirtazapine (Remeron -) 7.5 mg PO HS [facility] Last Admin: 08/21/18 21:18 Dose: 7.5 mg Ptnt's Own Med( Ibrutinib [Imbruvica ] 120 Mg) 120 mg PO DAILY [facility] Last Admin: 08/22/18 09:07 Dose: 120 mg Pantoprazole Sodium (Protonix -) 40 mg PO BID [facility] Last Admin: 08/22/18 09:07 Dose: 40 mg 87 year old gentleman known to our service with 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 #Syncope in setting of anemia and intravascular volume depletion #JOON secondary to volume depletion #Lactic acidosis #Leukocytosis #Urinary retention with chronic chamberlain #Hx of LE edema #Hematuria Renal function stable agree with starting IVF as pt with poor oral intake Urology follow up for hematuria Hgb stable thus far confusion, change in baseline ms may be due to remeron, CT head w/o any acute pathology Trend renal function and electrolytes no renal contraindication to planned urologic procedure. Peewee Torres DO
[2018-08-22] MEDS: DEXTROSE 5%-0.45% SALINE 1,000 ML IV SCH (17:51)
[2018-08-22] MEDS: ATORVASTATIN CA 20 MG TABLET (FP) PO SCH ×2 (22:21→22:26)
[2018-08-22] MEDS: MIRTAZAPINE 15 MG TABLET (FP) PO SCH (22:55)
--- NOTE | 2018-08-22 23:17 | PN ---
Progress Note (short form) - Note Progress Note: Patient seen and examined Arousable but lethargic AFVSS Cor: RSR, No murmurs, No gallops Lungs: Clear to P&A Abd: Soft, Normal bowel sounds, No organomegaly Ext:No significant edema Abnormal Lab Results 08/23/18 08/23/18 05:30 05:30 WBC 13.4 H RBC 3.54 L Hgb 10.6 L Hct 33.8 L MCHC 31.3 L RDW 19.2 H Plt Count 131 L Absolute Neuts (auto) 8.6 H Chloride 116 H Carbon Dioxide 20 L BUN 46 H Creatinine 3.1 H Calcium 7.6 L Phosphorus 5.8 H Active Medications Generic Name Dose Route Start Last Admin Trade Name Freq PRN Reason Stop Dose Admin Allopurinol 100 mg 08/15/18 10:00 08/23/18 11:14 Zyloprim - PO 100 mg DAILY CORNELIA Administration Amino Acids 30 ml 08/18/18 17:30 08/23/18 10:48 Prosource No Carb Liquid Pkt PO Not Given BID@0800,1730 CORNELIA Atorvastatin Calcium 20 mg 08/14/18 22:00 08/22/18 22:26 Lipitor - PO Not Given HS CORNELIA Bacitracin 1 applic 08/15/18 13:15 08/22/18 22:21 Bacitracin - TP 1 applic BID CORNELIA Administration Diltiazem HCl 120 mg 08/18/18 11:45 08/23/18 10:48 Cardizem Cd - PO Not Given DAILY CORNELIA Sodium Chloride 1,000 mls @ 83 mls/hr 08/23/18 10:45 08/23/18 11:14 Normal Saline - IV 83 mls/hr ASDIR CORNELIA Administration Metoprolol Succinate 50 mg 08/14/18 22:00 08/23/18 10:49 Toprol Xl - PO Not Given BID CORNELIA Mirtazapine 7.5 mg 08/18/18 22:00 08/22/18 22:55 Remeron - PO Not Given HS CORNELIA Ptnt's Own Med( 120 mg 08/20/18 18:15 08/22/18 09:07 Ibrutinib [Imbruvica PO 120 mg ] 120 Mg) DAILY CORNELIA Administration Pantoprazole Sodium 40 mg 08/14/18 22:00 08/23/18 11:14 Protonix - PO 40 mg BID CORNELIA Administration A/P 87 year old male with a significant past medical history of 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 He states that he does not recall exactlly what happened but he was speaking to a friend at this bedside at home when he suddenly lost consciousness. CT imaging was negative for acute bleed. 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
[2018-08-23 08:09] LABS: BASO % 0.3 % (0-2.0); HEMATOCRIT 33.8 % (35.4-49); HEMOGLOBIN 10.6 GM/dL (11.7-16.9); LYMPH % 29.2 % (8-40); MCH 29.8 pg (25.7-33.7); MCHC 31.3 g/dl (32.0-35.9); MEAN CELL VOLUME 95.4 fl (80-96); MONO % 6.1 % (3.8-10.2); NEUT % 64.4 % (42.8-82.8); PLATELET COUNT 131 K/MM3 (134-434); RBC 3.54 M/mm3 (4.00-5.60); RDW 19.2 % (11.9-15.9); WHITE BLOOD COUNT 13.4 K/mm3 (4.0-10.0)
[2018-08-23 08:16] LABS: ANION GAP 10 MMOL/L (8-16); BLOOD UREA NITROGEN 46 mg/dL (7-18); CALCIUM 7.6 mg/dL (8.5-10.1); CHLORIDE 116 mmol/L (98-107); CO2 20 mmol/L (21-32); CREATININE 3.1 mg/dL (0.55-1.3); GLUCOSE,RANDOM 81 mg/dL (74-106); MAGNESIUM 2.2 mg/dL (1.8-2.4); PHOSPHOROUS 5.8 mg/dL (2.5-4.9); POTASSIUM 4.2 mmol/L (3.5-5.1); SODIUM 145 mmol/L (136-145)
[2018-08-23] MEDS ORDERED: SODIUM CHLORIDE 250 ML IV ONE (10:15)
[2018-08-23] MEDS ORDERED: SODIUM CHLORIDE 1,000 ML IV SCH ×3 (10:45→14:15)
[2018-08-23] MEDS: AMINO ACIDS/PROTEIN HYDROLYS 30 ML LIQUID.PKT PO SCH ×2 (10:48→18:11)
--- NOTE | 2018-08-23 10:51 | PN ---
Progress Note, Physician Chief Complaint: EVENTS AND NOTES REVIEWED PATIENT IS AWAKE CONFUSED IN MILD DISTRESS WITH WRIST RESTRAINTS BP NOTES 80/48MMHG - Current Medication List Current Medications: Active Medications Allopurinol (Zyloprim -) 100 mg PO DAILY [facility] Last Admin: 08/22/18 09:08 Dose: 100 mg Amino Acids (Prosource No Carb Liquid Pkt) 30 ml PO BID@0800,1730 [facility] Last Admin: 08/22/18 17:51 Dose: Not Given Atorvastatin Calcium (Lipitor -) 20 mg PO [facility] Last Admin: 08/22/18 22:26 Dose: Not Given Bacitracin (Bacitracin -) 1 applic TP BID [facility] Last Admin: 08/22/18 22:21 Dose: 1 applic Diltiazem HCl (Cardizem Cd -) 120 mg PO DAILY [facility] Last Admin: 08/22/18 09:07 Dose: 120 mg Sodium Chloride (Normal Saline -) 1,000 mls @ 83 mls/hr IV ASDIR [facility] Metoprolol Succinate (Toprol Xl -) 50 mg PO BID [facility] Last Admin: 08/22/18 22:26 Dose: Not Given Mirtazapine (Remeron -) 7.5 mg PO [facility] Last Admin: 08/22/18 22:55 Dose: Not Given Ptnt's Own Med( Ibrutinib [Imbruvica ] 120 Mg) 120 mg PO DAILY [facility] Last Admin: 08/22/18 09:07 Dose: 120 mg Pantoprazole Sodium (Protonix -) 40 mg PO BID [facility] Last Admin: 08/22/18 22:26 Dose: Not Given - Objective Vital Signs: Vital Signs Temperature 97.9 F 08/23/18 09:24 Pulse Rate 106 H 08/23/18 09:24 Respiratory Rate 20 08/23/18 09:24 Blood Pressure 86/48 L 08/23/18 09:24 O2 Sat by Pulse Oximetry (%) 97 08/22/18 21:00 Constitutional: Yes: Mild Distress Eyes: Yes: WNL HENT: Yes: WNL Neck: Yes: WNL Cardiovascular: Yes: Pulse Irregular Respiratory: Yes: WNL Gastrointestinal: Yes: WNL Genitourinary: Yes: Willis Present Musculoskeletal: Yes: Muscle Weakness Extremities: Yes: Deformity Edema: LUE: 2+ Peripheral Pulses WNL: Yes Integumentary: Yes: Bruising, Erythema, Pressure Ulcer, Rash, Skin Tear, Venous Stasis Changes Wound/Incision: Yes: Open to air, Reddened, Excoriated, Unapproximated Neurological: Yes: Pre-Existing Deficit, Unsteady Gait, Weakness ...Motor Strength: LUE (2 EDEMA LEFT ARM, NON-TENDER), LLE, RLE Psychiatric: Yes: Other Labs: CBC, BMP 08/23/18 05:30 08/23/18 05:30 INR, PTT INR 1.12 (0.83-1.09) H 08/16/18 07:30 Problem List - Problems (1) Hypotension Code(s): I95.9 - HYPOTENSION, UNSPECIFIED (2) NHL (non-Hodgkin's lymphoma) Code(s): C85.90 - NON-HODGKIN LYMPHOMA, UNSPECIFIED, UNSPECIFIED SITE (3) Severe sepsis Code(s): A41.9 - SEPSIS, UNSPECIFIED ORGANISM; R65.20 - SEVERE SEPSIS WITHOUT SEPTIC SHOCK (4) Syncope Code(s): R55 - SYNCOPE AND COLLAPSE Qualifiers: Syncope type: vasovagal syncope Qualified Code(s): R55 - Syncope and collapse (5) Acute kidney injury Code(s): N17.9 - ACUTE KIDNEY FAILURE, UNSPECIFIED (6) Afib Code(s): I48.91 - UNSPECIFIED ATRIAL FIBRILLATION Qualifiers: Atrial fibrillation type: chronic Qualified Code(s): I48.2 - Chronic atrial fibrillation (7) Anemia Code(s): D64.9 - ANEMIA, UNSPECIFIED Qualifiers: Anemia type: other cause Other causes of anemia: antineoplastic chemotherapy Qualified Code(s): D64.81 - Anemia due to antineoplastic chemotherapy; T45.1X5A - Adverse effect of antineoplastic and immunosuppressive drugs, initial encounter (8) Chronic lymphocytic leukemia (CLL), B-cell Code(s): C91.10 - CHRONIC LYMPHOCYTIC LEUK OF B-CELL TYPE NOT ACHIEVE REMIS Qualifiers: Leukemia Active/Remission status: in remission Qualified Code(s): C91.11 - Chronic lymphocytic leukemia of B-cell type in remission (9) Lymphoplasmacytoid lymphoma, CLL Code(s): 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 IF BP CONTINUES TO DECREASE TRANSFER TO ICU/TELE WRIST RESTRAINTS/WILLIS CATH RENEWED
[2018-08-23] MEDS: ALLOPURINOL 100 MG TABLET (FP) PO SCH (11:14)
[2018-08-23] MEDS: PANTOPRAZOLE 40 MG TABLET (FP) PO SCH ×2 (11:14→21:10)
--- NOTE | 2018-08-23 13:41 | PN ---
Progress Note, Physician Chief Complaint: The patient seen in his bed. Family visiting. All kinds of questions about the procedure. Advised them that the Urologist will be in touch with them. - Current Medication List Current Medications: Active Medications Allopurinol (Zyloprim -) 100 mg PO DAILY [facility] Last Admin: 08/23/18 11:14 Dose: 100 mg Amino Acids (Prosource No Carb Liquid Pkt) 30 ml PO BID@0800,1730 [facility] Last Admin: 08/23/18 10:48 Dose: Not Given Atorvastatin Calcium (Lipitor -) 20 mg PO HS [facility] Last Admin: 08/22/18 22:26 Dose: Not Given Bacitracin (Bacitracin -) 1 applic TP BID [facility] Last Admin: 08/22/18 22:21 Dose: 1 applic Diltiazem HCl (Cardizem Cd -) 120 mg PO DAILY [facility] Last Admin: 08/23/18 10:48 Dose: Not Given Sodium Chloride (Normal Saline -) 1,000 mls @ 83 mls/hr IV ASDIR [facility] Last Admin: 08/23/18 11:14 Dose: 83 mls/hr Metoprolol Succinate (Toprol Xl -) 50 mg PO BID [facility] Last Admin: 08/23/18 10:49 Dose: Not Given Mirtazapine (Remeron -) 7.5 mg PO HS [facility] Last Admin: 08/22/18 22:55 Dose: Not Given Pantoprazole Sodium (Protonix -) 40 mg PO BID [facility] Last Admin: 08/23/18 11:14 Dose: 40 mg - Objective Vital Signs: Vital Signs Temperature 97.9 F 08/23/18 09:24 Pulse Rate 105 H 08/23/18 11:10 Respiratory Rate 20 08/23/18 11:10 Blood Pressure 96/56 L 08/23/18 11:10 O2 Sat by Pulse Oximetry (%) 97 08/23/18 09:00 Constitutional: Yes: No Distress, Anxious Eyes: Yes: Conjunctiva Clear HENT: Yes: Normocephalic Neck: Yes: Trachea Midline Cardiovascular: Yes: Tachycardia, S1, S2 Respiratory: Yes: CTA Bilaterally, Diminished Gastrointestinal: Yes: Normal Bowel Sounds Genitourinary: Yes: Resendiz Present, Incontinence. No: CVA Tenderness - Left, CVA Tenderness - Right Neurological: Yes: Alert, Oriented Psychiatric: Yes: Oriented Labs: CBC, BMP 08/23/18 05:30 08/23/18 05:30 INR, PTT INR 1.12 (0.83-1.09) H 08/16/18 07:30 Problem List - Problems (1) Hypotension Code(s): I95.9 - HYPOTENSION, UNSPECIFIED (2) Severe sepsis Code(s): A41.9 - SEPSIS, UNSPECIFIED ORGANISM; R65.20 - SEVERE SEPSIS WITHOUT SEPTIC SHOCK (3) Syncope Code(s): R55 - SYNCOPE AND COLLAPSE Qualifiers: Syncope type: vasovagal syncope Qualified Code(s): R55 - Syncope and collapse (4) Acute kidney injury Code(s): N17.9 - ACUTE KIDNEY FAILURE, UNSPECIFIED (5) Afib Code(s): I48.91 - UNSPECIFIED ATRIAL FIBRILLATION Qualifiers: Atrial fibrillation type: chronic Qualified Code(s): I48.2 - Chronic atrial fibrillation (6) Anemia Code(s): D64.9 - ANEMIA, UNSPECIFIED Qualifiers: Anemia type: other cause Other causes of anemia: antineoplastic chemotherapy Qualified Code(s): D64.81 - Anemia due to antineoplastic chemotherapy; T45.1X5A - Adverse effect of antineoplastic and immunosuppressive drugs, initial encounter (7) Chronic kidney disease (CKD) Code(s): N18.9 - CHRONIC KIDNEY DISEASE, UNSPECIFIED Qualifiers: Chronic kidney disease stage: stage 3 (moderate) Qualified Code(s): N18.3 - Chronic kidney disease, stage 3 (moderate) Assessment/Plan 87 year old gentleman known to our service with hx of NHL on imbruvica, hypertension, Afib, BPH, CKD with recent JOON, Urinary retention s/p Resendiz presented with syncope and fall from home. The patient is scheduled for Cystoscopy and ? TURP JOON...possibly related to the Hypotension. IV fluids started. Renal functions expected to improve to his baseline. Discussed with the family. Thank you. Will follow with you. Kayla Jaime MD
[2018-08-23] MEDS: BACITRACIN 15 GM TUBE TOPICAL OINTMENT TP SCH ×2 (14:19→21:09)
[2018-08-23] MEDS ORDERED: LACTATED RINGERS SOLUTION 1000 ML INFUS.BAG IV ONE (14:30)
--- NOTE | 2018-08-23 14:37 | PN ---
Progress Note (short form) - Note Progress Note: Chief Complaint: Events noted, notes reviewed, lethargic but arousable, confused and disoriented in restraints, hypotension noted History of Present Illness: Seen and examined. Events noted, notes reviewed, lethargic but arousable, confused and disoriented in restraints, hypotension noted Echocardiography dated 01/23/2018 revealed normal bi-ventricular size and function, mild-moderate TR, mild , moderate LAE, mild HILTON Medications: Current Medications Allopurinol (Zyloprim -) 100 mg PO DAILY [facility] Last Admin: 08/23/18 11:14 Dose: 100 mg Amino Acids (Prosource No Carb Liquid Pkt) 30 ml PO BID@0800,1730 [facility] Last Admin: 08/23/18 10:48 Dose: Not Given Atorvastatin Calcium (Lipitor -) 20 mg PO HS [facility] Last Admin: 08/22/18 22:26 Dose: Not Given Bacitracin (Bacitracin -) 1 applic TP BID [facility] Last Admin: 08/23/18 14:19 Dose: 1 applic Diltiazem HCl (Cardizem Cd -) 120 mg PO DAILY [facility] Last Admin: 08/23/18 10:48 Dose: Not Given Sodium Chloride (Normal Saline -) 1,000 mls @ 125 mls/hr IV ASDIR [facility] Last Admin: 08/23/18 14:19 Dose: 125 mls/hr Metoprolol Succinate (Toprol Xl -) 50 mg PO BID [facility] Last Admin: 08/23/18 10:49 Dose: Not Given Mirtazapine (Remeron -) 7.5 mg PO HS [facility] Last Admin: 08/22/18 22:55 Dose: Not Given Pantoprazole Sodium (Protonix -) 40 mg PO BID [facility] Last Admin: 08/23/18 11:14 Dose: 40 mg Vital Signs: Last Vital Signs Temp Pulse Resp BP Pulse Ox 97.8 F 92 H 22 H 88/84 L 97 08/23/18 14:22 08/23/18 14:22 08/23/18 14:22 08/23/18 14:22 08/23/18 09:00 Intake & Output 08/20/18 08/21/18 08/22/18 08/23/18 23:59 23:59 23:59 23:59 Intake Total 300 382 7656 420 Output Total 250 700 150 Balance 158 65 8835 420 Weight 160 lb Constitutional: Lethargic Neck: Supple Negative JVD No Bruit Respiratory: Diminished Breath Sounds at the Bases Cardiovascular: S1 S2 Irregularly Irregular Grade 2/6 SM Gastrointestinal: Soft Benign Normal Bowel Sounds Ext: Trace-1+ Edema Labs: CBC, BMP 08/23/18 05:30 08/23/18 05:30 Assessment/Plan ASSESSMENT: 1. Hypotension, etiology to be determined, admitted for syncope in setting of anemia and intravascular volume depletion from over-diuresis 2. Anemia with history of gastrointestinal bleed related to ischemic colitis, angiodysplasias of the stomach and colon 2. CAD angina pectoris, stable 3. Diastolic LV dysfunction with chronic class 0-I NYHA classification LV failure, clinically compensated/euvolemic 4. Persistent atrial fibrillation with periods of rapid ventricular response [id number] score of 6 of off DOAC's/Eliquis 5. History of CVA/TIA 6. HTN 7. Hypercholesterolemia 8. 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 History of recurrent diverticular bleed 10. Acute on CKD referable to volume depletion from over-diuresis 11. History of hematuria 12. History of CLL with anemia and thrombocytopenia 13. History of non Hodgkin's lymphoma PLAN: 1. IV fluids as per primary team 2. Hold B-Blockers and Cardizem 3. Continue to hold Eliquis at this point pending resolution of the above noted presentation (once hematuria resolves), oil heaterman A/C is recommended considering the above noted co-morbidities unless it is absolutely contraindicated 4. Continue to hold Lasix and continue monitoring of renal function 5. Continue Lipitor 6. Monitor CBC and transfuse to maintain Hg equal or > 8.0 Bouchra Lu M.D.
[2018-08-23] MEDS: IBRUTINIB PO SCH (15:53)
--- NOTE | 2018-08-23 17:39 | PN ---
Progress Note, Physician Chief Complaint: CALLED TO SEE PATIENT FOR SUNDOWNING SYNDROME. hE IS A 87 YO LIVES WITH SUPPORT AIDE. HE IS ADMITTED AFTER HE EXPERIENCED A SYNCOPE EPISODE WHILE TALKING TO A PEER. HE DENIES HAVING ANY PSYCHIATRIC HISTORY. cURRENTLY IN FELICITY VEST RESTRAINT, HAS DELIERUIM DUE TO KNOWN PHYSIOLOGICAL CONDITION. cLIENT ALSO HAS CHRONIC RENAL FAILURE, SEPSIS, HYPOTENSION, ANAEMIA, AFIF AND HAEMATURIA, SCHEDULED FOR PROCEDURE BY UROLOGY WHEN CLEARED. CLIENT IS ASSISTED WITH EVENING MEAL BY STAFF, WHEN CAME TO 720-02 TO SEE PATIENT. HE IS ALERT, ORIENTATED BY 3. HE RECALLED HIS BIRTHDAY, TODAYS DATE, DAD CALLED HIM "ALYSSA". BUT HAS PERIODS OF "FORGETFULNESS" ACCORDING TO rn sAUDI CARING FOR HIM. - Current Medication List Current Medications: Active Medications Allopurinol (Zyloprim -) 100 mg PO DAILY [facility] Last Admin: 08/23/18 11:14 Dose: 100 mg Amino Acids (Prosource No Carb Liquid Pkt) 30 ml PO BID@0800,1730 [facility] Last Admin: 08/23/18 10:48 Dose: Not Given Atorvastatin Calcium (Lipitor -) 20 mg PO [facility] Last Admin: 08/22/18 22:26 Dose: Not Given Bacitracin (Bacitracin -) 1 applic TP BID [facility] Last Admin: 08/23/18 14:19 Dose: 1 applic Mirtazapine (Remeron -) 7.5 mg PO [facility] Last Admin: 08/22/18 22:55 Dose: Not Given Pantoprazole Sodium (Protonix -) 40 mg PO BID [facility] Last Admin: 08/23/18 11:14 Dose: 40 mg - Objective Vital Signs: Vital Signs Temperature 97.8 F 08/23/18 14:22 Pulse Rate 101 H 08/23/18 15:20 Respiratory Rate 20 08/23/18 15:20 Blood Pressure 94/56 L 08/23/18 15:20 O2 Sat by Pulse Oximetry (%) 97 08/23/18 09:00 Constitutional: Yes: Anxious, Thin (BMI IS 23.) Psychiatric: Yes: Alert (BUT QUICKLY DISTRACTS AND HAS SHORT SLEEP WHILE TALKING TO HIM.), Oriented Labs: CBC, BMP 08/23/18 05:30 08/23/18 05:30 INR, PTT INR 1.12 (0.83-1.09) H 08/16/18 07:30 Problem List - Problems (1) Sundowning Code(s): F05 - DELIRIUM DUE TO KNOWN PHYSIOLOGICAL CONDITION Assessment/Plan cLIENT HAS SOME CONFUSION, FORGETFULLNESS IN PM. RECOMMEND REMINESENCE THERPY. CLIENT STATED HE ENJOYS SPORT ON TV, ENGAGE HIM WITH THIS ALSO. cLIENT IS ALREADY TAKING REMERON 7.5 MG AT NIGHT, CONTINUE SAME FOR MILD ANXIETY AND SAD AFFECT. HE SELF REPORTS POOR SLEEP WHICH THIS WILL HELP ALSO. cLIENT IS ALSO ON MELATONIN 5 MG. cLIENT DOES NOT HAVE DEMENTIA. nO PSYCHOSIS, DENIES SUICIDAL OR HOMICIDAL IDEATION. MAY REDUCE MELATONIN TO 3MG IF SEDATION OCCURS. REDUCE TO REMERON 7.5 TAKE 1/2 TAB AT NIGHT.
--- NOTE | 2018-08-23 18:10 | PN ---
Mental Health Exam - Mental Status Exam Alert and Oriented to: Time (INTERMITTENTLY FORGETFUL. ), Place, Person Cognitive Function: Grossly Intact Patient Appearance: Disheveled (SKIN BRUISING, JUANDICE SKIN HUE, UNSHAVEN) Mood: Sad ("I FEEL TERRIBLE". ) Affect: Inappropriate (LAUGHS STATED MOOOD IS "TERRIBLE". ) Patient Behavior: Dependent (BEING FED WITH MEAL, IN FELICITY RESTRAINT. ), Passive , Distractible, Cooperative Speech Pattern: Slurred (ONLY WEARING TOP DENTURE. ), Tangential Voice Loudness: Mildly Soft/Quiet (HARD TO HEAR OVER 720-01 TV VOLUME. ) Thought Process: Circumstantial, Tangential Thought Disorder: Not Present Hallucinations: None, Denies Suicidal Ideation: None Homicidal Ideation: Denies Insight/Judgement: Fair Sleep: Poorly ("I DONT SLEEP MUCH". ) Appetite: Fair (ATE 25% OF MEAL TRAY. ) Muscle strength/Tone: Mild Hypotonicity Gait/Station: Deferred
[2018-08-23] MEDS: ATORVASTATIN CA 20 MG TABLET (FP) PO SCH (21:10)
[2018-08-23] MEDS: MIRTAZAPINE 15 MG TABLET (FP) PO SCH (21:10)
[2018-08-23] MEDS ORDERED: LACTATED RINGERS SOLUTION 1,000 ML/1,000 ML INFUS.BAG IV SCH (22:00)
[2018-08-24 07:41] LABS: HEMATOCRIT 30.5 % (35.4-49); HEMOGLOBIN 9.6 GM/dL (11.7-16.9); MCH 29.7 pg (25.7-33.7); MCHC 31.6 g/dl (32.0-35.9); MEAN CELL VOLUME 93.9 fl (80-96); MEAN PLT VOLUME 10.7 fl (7.5-11.1); PLATELET COUNT 114 K/MM3 (134-434); RBC 3.25 M/mm3 (4.00-5.60); RDW 18.6 % (11.9-15.9); WHITE BLOOD COUNT 12.9 K/mm3 (4.0-10.0)
[2018-08-24 08:05] LABS: ANION GAP 7 MMOL/L (8-16); BLOOD UREA NITROGEN 47 mg/dL (7-18); CALCIUM 7.7 mg/dL (8.5-10.1); CHLORIDE 117 mmol/L (98-107); CO2 23 mmol/L (21-32); CREATININE 3.1 mg/dL (0.55-1.3); GLUCOSE,RANDOM 84 mg/dL (74-106); LDH 256 U/L (87-246); MAGNESIUM 2.1 mg/dL (1.8-2.4); PHOSPHOROUS 3.9 mg/dL (2.5-4.9); POTASSIUM 4.2 mmol/L (3.5-5.1); SODIUM 147 mmol/L (136-145); URIC ACID 4.8 mg/dL (2.6-7.2)
[2018-08-24] MEDS: DEXTROSE 5%-0.45% SALINE 1,000 ML IV SCH (08:17)
--- NOTE | 2018-08-24 09:45 | PN ---
Progress Note, Physician Chief Complaint: The patient seen in his bed. Awake, alert. No new complaints. BP much better than yesterday. Denies any chest pain, or shortness of breath. The Resendiz Catheter is draining hemestained urine. IV fluids infusing. - Current Medication List Current Medications: Active Medications Allopurinol (Zyloprim -) 100 mg PO DAILY [facility] Last Admin: 08/23/18 11:14 Dose: 100 mg Amino Acids (Prosource No Carb Liquid Pkt) 30 ml PO BID@0800,1730 [facility] Last Admin: 08/23/18 18:11 Dose: Not Given Atorvastatin Calcium (Lipitor -) 20 mg PO HS [facility] Last Admin: 08/23/18 21:10 Dose: Not Given Bacitracin (Bacitracin -) 1 applic TP BID [facility] Last Admin: 08/23/18 21:09 Dose: 1 applic Dextrose/Sodium Chloride (D5-1/2ns -) 1,000 mls @ 75 mls/hr IV ASDIR [facility] Last Admin: 08/24/18 08:17 Dose: 75 mls/hr Mirtazapine (Remeron -) 7.5 mg PO [facility] Last Admin: 08/23/18 21:10 Dose: Not Given Pantoprazole Sodium (Protonix -) 40 mg PO BID [facility] Last Admin: 08/23/18 21:10 Dose: Not Given - Objective Vital Signs: Vital Signs Temperature 98.5 F 08/24/18 06:00 Pulse Rate 98 H 08/24/18 06:00 Respiratory Rate 18 08/24/18 06:00 Blood Pressure 105/58 L 08/24/18 06:00 O2 Sat by Pulse Oximetry (%) 97 08/23/18 21:00 Constitutional: Yes: No Distress Eyes: Yes: Conjunctiva Clear HENT: Yes: Atraumatic Neck: Yes: Trachea Midline Cardiovascular: Yes: Tachycardia, Pulse Irregular, S1, S2 Respiratory: Yes: CTA Bilaterally, Diminished Gastrointestinal: Yes: Normal Bowel Sounds, Soft Genitourinary: Yes: Resendiz Present, Hematuria Neurological: Yes: Alert, Oriented Labs: CBC, BMP 08/24/18 06:00 08/24/18 06:00 INR, PTT INR 1.12 (0.83-1.09) H 08/16/18 07:30 Problem List - Problems (1) Hypotension Code(s): I95.9 - HYPOTENSION, UNSPECIFIED (2) Severe sepsis Code(s): A41.9 - SEPSIS, UNSPECIFIED ORGANISM; R65.20 - SEVERE SEPSIS WITHOUT SEPTIC SHOCK (3) Syncope Code(s): R55 - SYNCOPE AND COLLAPSE Qualifiers: Syncope type: vasovagal syncope Qualified Code(s): R55 - Syncope and collapse (4) Acute kidney injury Code(s): N17.9 - ACUTE KIDNEY FAILURE, UNSPECIFIED (5) Afib Code(s): I48.91 - UNSPECIFIED ATRIAL FIBRILLATION Qualifiers: Atrial fibrillation type: chronic Qualified Code(s): I48.2 - Chronic atrial fibrillation (6) Anemia Code(s): D64.9 - ANEMIA, UNSPECIFIED Qualifiers: Anemia type: other cause Other causes of anemia: antineoplastic chemotherapy Qualified Code(s): D64.81 - Anemia due to antineoplastic chemotherapy; T45.1X5A - Adverse effect of antineoplastic and immunosuppressive drugs, initial encounter (7) Chronic kidney disease (CKD) Code(s): N18.9 - CHRONIC KIDNEY DISEASE, UNSPECIFIED Qualifiers: Chronic kidney disease stage: stage 3 (moderate) Qualified Code(s): N18.3 - Chronic kidney disease, stage 3 (moderate) Assessment/Plan 87 year old gentleman known to our service with hx of No Hodgkin's lymphoma, Hypertension, Afib, BPH, CKD with recent JOON, Urinary retention s/p Resendiz presented with syncope and fall from home. The patient is scheduled for Cystoscopy and ? TURP. Awaiting documenation and Preop orders from . JOON...possibly related to the Hypotension and Renal ischemia. Will continue the IV fluids for now. Renal functions expected to improve towards his baseline. The family has many questions about the surgery. Advised them to have the surgeon answer them. Thank you. Will follow with you. Kayla Jaime MD
--- NOTE | 2018-08-24 10:28 | PN ---
Progress Note, Physician - Current Medication List Current Medications: Active Medications Allopurinol (Zyloprim -) 100 mg PO DAILY [facility] Last Admin: 08/23/18 11:14 Dose: 100 mg Amino Acids (Prosource No Carb Liquid Pkt) 30 ml PO BID@0800,1730 [facility] Last Admin: 08/23/18 18:11 Dose: Not Given Atorvastatin Calcium (Lipitor -) 20 mg PO HS [facility] Last Admin: 08/23/18 21:10 Dose: Not Given Bacitracin (Bacitracin -) 1 applic TP BID [facility] Last Admin: 08/23/18 21:09 Dose: 1 applic Dextrose/Sodium Chloride (D5-1/2ns -) 1,000 mls @ 75 mls/hr IV ASDIR [facility] Last Admin: 08/24/18 08:17 Dose: 75 mls/hr Mirtazapine (Remeron -) 7.5 mg PO HS [facility] Last Admin: 08/23/18 21:10 Dose: Not Given Pantoprazole Sodium (Protonix -) 40 mg PO BID [facility] Last Admin: 08/23/18 21:10 Dose: Not Given - Objective Vital Signs: Vital Signs Temperature 98.5 F 08/24/18 06:00 Pulse Rate 98 H 08/24/18 06:00 Respiratory Rate 18 08/24/18 06:00 Blood Pressure 105/58 L 08/24/18 06:00 O2 Sat by Pulse Oximetry (%) 97 08/23/18 21:00 Labs: CBC, BMP 08/24/18 06:00 08/24/18 06:00 INR, PTT INR 1.12 (0.83-1.09) H 08/16/18 07:30 Problem List - Problems (1) Hypotension Code(s): I95.9 - HYPOTENSION, UNSPECIFIED (2) NHL (non-Hodgkin's lymphoma) Code(s): C85.90 - NON-HODGKIN LYMPHOMA, UNSPECIFIED, UNSPECIFIED SITE (3) Severe sepsis Code(s): A41.9 - SEPSIS, UNSPECIFIED ORGANISM; R65.20 - SEVERE SEPSIS WITHOUT SEPTIC SHOCK (4) Syncope Code(s): R55 - SYNCOPE AND COLLAPSE Qualifiers: Syncope type: vasovagal syncope Qualified Code(s): R55 - Syncope and collapse (5) Acute kidney injury Code(s): N17.9 - ACUTE KIDNEY FAILURE, UNSPECIFIED (6) Afib Code(s): I48.91 - UNSPECIFIED ATRIAL FIBRILLATION Qualifiers: Atrial fibrillation type: chronic Qualified Code(s): I48.2 - Chronic atrial fibrillation (7) Anemia Code(s): D64.9 - ANEMIA, UNSPECIFIED Qualifiers: Anemia type: other cause Other causes of anemia: antineoplastic chemotherapy Qualified Code(s): D64.81 - Anemia due to antineoplastic chemotherapy; T45.1X5A - Adverse effect of antineoplastic and immunosuppressive drugs, initial encounter (8) Chronic lymphocytic leukemia (CLL), B-cell Code(s): C91.10 - CHRONIC LYMPHOCYTIC LEUK OF B-CELL TYPE NOT ACHIEVE REMIS Qualifiers: Leukemia Active/Remission status: in remission Qualified Code(s): C91.11 - Chronic lymphocytic leukemia of B-cell type in remission (9) Lymphoplasmacytoid lymphoma, CLL Code(s): C83.00 - SMALL CELL B-CELL LYMPHOMA, UNSPECIFIED SITE (10) Weakness due to cerebrovascular accident (CVA) Code(s): I63.9 - CEREBRAL INFARCTION, UNSPECIFIED; R53.1 - WEAKNESS
[2018-08-24] MEDS: BACITRACIN 15 GM TUBE TOPICAL OINTMENT TP SCH ×2 (10:59→21:32)
[2018-08-24] MEDS: AMINO ACIDS/PROTEIN HYDROLYS 30 ML LIQUID.PKT PO SCH ×2 (10:59→17:11)
[2018-08-24] MEDS: PANTOPRAZOLE 40 MG TABLET (FP) PO SCH ×2 (11:00→21:33)
[2018-08-24] MEDS: ALLOPURINOL 100 MG TABLET (FP) PO SCH (11:00)
--- NOTE | 2018-08-24 11:12 | PN ---
Progress Note, Physician Chief Complaint: AWAKE ALERT DENIES CP/SOB AGREES TO PROCEDURE IN A.M. - Current Medication List Current Medications: Active Medications Allopurinol (Zyloprim -) 100 mg PO DAILY [facility] Last Admin: 08/24/18 11:00 Dose: 100 mg Amino Acids (Prosource No Carb Liquid Pkt) 30 ml PO BID@0800,1730 [facility] Last Admin: 08/24/18 10:59 Dose: 30 ml Atorvastatin Calcium (Lipitor -) 20 mg PO HS [facility] Last Admin: 08/23/18 21:10 Dose: Not Given Bacitracin (Bacitracin -) 1 applic TP BID [facility] Last Admin: 08/24/18 10:59 Dose: 1 applic Dextrose/Sodium Chloride (D5-1/2ns -) 1,000 mls @ 75 mls/hr IV ASDIR [facility] Last Admin: 08/24/18 08:17 Dose: 75 mls/hr Mirtazapine (Remeron -) 7.5 mg PO HS [facility] Last Admin: 08/23/18 21:10 Dose: Not Given Pantoprazole Sodium (Protonix -) 40 mg PO BID [facility] Last Admin: 08/24/18 11:00 Dose: 40 mg - Objective Vital Signs: Vital Signs Temperature 98.5 F 08/24/18 06:00 Pulse Rate 98 H 08/24/18 06:00 Respiratory Rate 18 08/24/18 06:00 Blood Pressure 105/58 L 08/24/18 06:00 O2 Sat by Pulse Oximetry (%) 97 08/23/18 21:00 Constitutional: Yes: Mild Distress Eyes: Yes: WNL HENT: Yes: WNL Neck: Yes: WNL Cardiovascular: Yes: Pulse Irregular Respiratory: Yes: CTA Bilaterally, On Nasal O2 Gastrointestinal: Yes: WNL Genitourinary: Yes: Willis Present Musculoskeletal: Yes: Muscle Weakness Extremities: Yes: Other Edema: Yes Edema: LUE: 2+ Peripheral Pulses WNL: Yes Integumentary: Yes: Rash, Venous Stasis Changes Wound/Incision: Yes: Dressing Dry and Intact, Reddened, Excoriated Neurological: Yes: Pre-Existing Deficit ...Motor Strength: LLE, RLE Psychiatric: Yes: Other Labs: CBC, BMP 08/24/18 06:00 08/24/18 06:00 INR, PTT INR 1.12 (0.83-1.09) H 08/16/18 07:30 Problem List - Problems (1) Hypotension Code(s): I95.9 - HYPOTENSION, UNSPECIFIED (2) NHL (non-Hodgkin's lymphoma) Code(s): C85.90 - NON-HODGKIN LYMPHOMA, UNSPECIFIED, UNSPECIFIED SITE (3) Severe sepsis Code(s): A41.9 - SEPSIS, UNSPECIFIED ORGANISM; R65.20 - SEVERE SEPSIS WITHOUT SEPTIC SHOCK (4) Syncope Code(s): R55 - SYNCOPE AND COLLAPSE Qualifiers: Syncope type: vasovagal syncope Qualified Code(s): R55 - Syncope and collapse (5) Acute kidney injury Code(s): N17.9 - ACUTE KIDNEY FAILURE, UNSPECIFIED (6) Afib Code(s): I48.91 - UNSPECIFIED ATRIAL FIBRILLATION Qualifiers: Atrial fibrillation type: chronic Qualified Code(s): I48.2 - Chronic atrial fibrillation (7) Anemia Code(s): D64.9 - ANEMIA, UNSPECIFIED Qualifiers: Anemia type: other cause Other causes of anemia: antineoplastic chemotherapy Qualified Code(s): D64.81 - Anemia due to antineoplastic chemotherapy; T45.1X5A - Adverse effect of antineoplastic and immunosuppressive drugs, initial encounter (8) Chronic lymphocytic leukemia (CLL), B-cell Code(s): C91.10 - CHRONIC LYMPHOCYTIC LEUK OF B-CELL TYPE NOT ACHIEVE REMIS Qualifiers: Leukemia Active/Remission status: in remission Qualified Code(s): C91.11 - Chronic lymphocytic leukemia of B-cell type in remission (9) Lymphoplasmacytoid lymphoma, CLL Code(s): C83.00 - SMALL CELL B-CELL LYMPHOMA, UNSPECIFIED SITE (10) Weakness due to cerebrovascular accident (CVA) Code(s): I63.9 - CEREBRAL INFARCTION, UNSPECIFIED; R53.1 - WEAKNESS Assessment/Plan HOLD CARDIZEM FOR SBP <110MMHG IVF CHANGED D5/NS PER NEPHROLOGY MAINTANCE OF 83CC/HR MAGIC CUP/ENSURE ADDED FOR NUTRITION AND MONITOR BGM AC/HS MEDICALLY CLEARED FOR CYSTOSCOPY FOR RENAL OBSTRUCTION THE BENEFIT AT THIS POINT OUTWEIGHS THE RISK WITH WORSENING RENAL FUNCTION. IF BP CONTINUES TO DECREASE TRANSFER TO ICU/TELE WRIST RESTRAINTS/WILLIS CATH RENEWED CREAT 3.1 TODAY, DUE TO OBSTRUCTION
--- NOTE | 2018-08-24 12:03 | PN ---
Progress Note (short form) - Note Progress Note: Chief Complaint: Events noted, notes reviewed, awake and alert, denies any chest pain or dyspnea, hypotension resolved probably related to volume depletion History of Present Illness: Seen and examined. Events noted, notes reviewed, awake and alert, denies any chest pain or dyspnea, hypotension resolved probably related to volume depletion Hematuria noted plannong to proceed with cystoscopy in AM Echocardiography dated 01/23/2018 revealed normal bi-ventricular size and function, mild-moderate TR, mild , moderate LAE, mild HILTON Medications: Current Medications Allopurinol (Zyloprim -) 100 mg PO DAILY [facility] Last Admin: 08/24/18 11:00 Dose: 100 mg Amino Acids (Prosource No Carb Liquid Pkt) 30 ml PO BID@0800,1730 [facility] Last Admin: 08/24/18 10:59 Dose: 30 ml Atorvastatin Calcium (Lipitor -) 20 mg PO HS [facility] Last Admin: 08/23/18 21:10 Dose: Not Given Bacitracin (Bacitracin -) 1 applic TP BID [facility] Last Admin: 08/24/18 10:59 Dose: 1 applic Dextrose/Sodium Chloride (D5-1/2ns -) 1,000 mls @ 75 mls/hr IV ASDIR [facility] Last Admin: 08/24/18 08:17 Dose: 75 mls/hr Mirtazapine (Remeron -) 7.5 mg PO HS [facility] Last Admin: 08/23/18 21:10 Dose: Not Given Pantoprazole Sodium (Protonix -) 40 mg PO BID [facility] Last Admin: 08/24/18 11:00 Dose: 40 mg Vital Signs: Last Vital Signs Temp Pulse Resp BP Pulse Ox 98.5 F 98 H 18 105/58 L 97 08/24/18 06:00 08/24/18 06:00 08/24/18 06:00 08/24/18 06:00 08/23/18 21:00 Intake & Output 08/21/18 08/22/18 08/23/18 08/24/18 23:59 23:59 23:59 23:59 Intake Total 780 1440 1494 1000 Output Total 700 150 300 Balance 80 1290 1194 1000 Weight 160 lb Constitutional: Awake No Distress Neck: Supple Negative JVD No Bruit Respiratory: Diminished Breath Sounds at the Bases Cardiovascular: S1 S2 Irregularly Irregular Grade 2/6 SM Gastrointestinal: Soft Benign Normal Bowel Sounds Ext: Trace Edema Labs: CBC, BMP 08/24/18 06:00 08/24/18 06:00 Assessment/Plan ASSESSMENT: 1. Hypotension resolved most likely volume depletion, admitted for syncope in setting of anemia and intravascular volume depletion from over-diuresis 2. Anemia with history of gastrointestinal bleed related to ischemic colitis, angiodysplasias of the stomach and colon 2. CAD angina pectoris, stable 3. Diastolic LV dysfunction with chronic class 0-I NYHA classification LV failure, clinically compensated/euvolemic 4. Persistent atrial fibrillation with periods of rapid ventricular response [id number] score of 6 of off DOAC's/Eliquis 5. History of CVA/TIA 6. HTN 7. Hypercholesterolemia 8. 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 History of recurrent diverticular bleed 10. Acute on CKD referable to volume depletion from over-diuresis 11. Persistent hematuria 12. History of CLL with anemia and thrombocytopenia 13. History of non Hodgkin's lymphoma PLAN: 1. Continue IV fluids with caution 2. Resume B-Blockers with caution hemodynamics permitting 3. Continue to withhold Cardizem 4. Continue to hold Eliquis at this point pending resolution of the above noted presentation (once hematuria resolves), geodetic advisor A/C is recommended considering the above noted co-morbidities unless it is absolutely contraindicated 5. Continue to hold Lasix and continue to monitoring renal function 6. Continue Lipitor 7. Monitor CBC and transfuse to maintain Hg equal or > 8.0 8. Provided patient remains hemodynamically stable with no clinical evidence of ACS and/or decompensated CHF and/or malignant ventricular arrhythmia, no contraindications in proceeding with planned urologic procedure, to be re- evaluated in the morning Bouchra Lu M.D.
[2018-08-24] MEDS: METOPROLOL TARTRATE 25 MG TABLET (FP) PO SCH ×2 (15:50→21:33)
[2018-08-24] MEDS ORDERED: PT OWN MED DRAWER 7, Y5N ONE (21:12)
[2018-08-24] MEDS: ATORVASTATIN CA 20 MG TABLET (FP) PO SCH (21:33)
[2018-08-24] MEDS: MIRTAZAPINE 15 MG TABLET (FP) PO SCH (21:33)
[2018-08-25] MEDS: METOPROLOL TARTRATE 25 MG TABLET (FP) PO SCH ×3 (06:02→21:33)
[2018-08-25 08:19] LABS: ALBUMIN 1.3 g/dl (3.4-5.0); ALK PHOS 87 U/L (45-117); ANION GAP 6 MMOL/L (8-16); BILIRUBIN,TOTAL 0.3 mg/dL (0.2-1); BLOOD UREA NITROGEN 45 mg/dL (7-18); CALCIUM 7.4 mg/dL (8.5-10.1); CHLORIDE 116 mmol/L (98-107); CO2 22 mmol/L (21-32); CREATININE 2.2 mg/dL (0.55-1.3); GLUCOSE,RANDOM 92 mg/dL (74-106); POTASSIUM 4.6 mmol/L (3.5-5.1); SGOT/AST 18 U/L (15-37); SGPT/ALT 16 U/L (13-61); SODIUM 144 mmol/L (136-145); TOT PROT 4.4 g/dl (6.4-8.2)
--- NOTE | 2018-08-25 09:03 | PN ---
Progress Note, Physician Chief Complaint: ASLEEP NAD - Current Medication List Current Medications: Active Medications Allopurinol (Zyloprim -) 100 mg PO DAILY [facility] Last Admin: 08/24/18 11:00 Dose: 100 mg Amino Acids (Prosource No Carb Liquid Pkt) 30 ml PO BID@0800,1730 [facility] Last Admin: 08/24/18 17:11 Dose: Not Given Atorvastatin Calcium (Lipitor -) 20 mg PO HS [facility] Last Admin: 08/24/18 21:33 Dose: 20 mg Bacitracin (Bacitracin -) 1 applic TP BID [facility] Last Admin: 08/24/18 21:32 Dose: 1 applic Dextrose/Sodium Chloride (D5-1/2ns -) 1,000 mls @ 75 mls/hr IV ASDIR [facility] Last Admin: 08/24/18 08:17 Dose: 75 mls/hr Metoprolol Tartrate (Lopressor -) 12.5 mg PO TID [facility] Last Admin: 08/25/18 06:02 Dose: 12.5 mg Mirtazapine (Remeron -) 7.5 mg PO [facility] Last Admin: 08/24/18 21:33 Dose: 7.5 mg Pantoprazole Sodium (Protonix -) 40 mg PO BID [facility] Last Admin: 08/24/18 21:33 Dose: 40 mg - Objective Vital Signs: Vital Signs Temperature 97.5 F L 08/25/18 05:59 Pulse Rate 115 H 08/25/18 05:59 Respiratory Rate 18 08/25/18 05:59 Blood Pressure 130/76 08/25/18 05:59 O2 Sat by Pulse Oximetry (%) 95 08/24/18 21:00 Constitutional: Yes: No Distress Eyes: Yes: WNL HENT: Yes: WNL Neck: Yes: WNL Cardiovascular: Yes: Tachycardia, Pulse Irregular Respiratory: Yes: On Nasal O2, Rhonchi Gastrointestinal: Yes: WNL Genitourinary: Yes: Other Musculoskeletal: Yes: Muscle Weakness Extremities: Yes: Other Edema: Yes Edema: LUE: 2+ Peripheral Pulses WNL: Yes Integumentary: Yes: Other Wound/Incision: Yes: Open to air, Excoriated Neurological: Yes: Pre-Existing Deficit ...Motor Strength: LLE, RLE Psychiatric: Yes: Other Labs: CBC, BMP 08/24/18 06:00 08/25/18 06:30 INR, PTT INR 1.12 (0.83-1.09) H 08/16/18 07:30 Problem List - Problems (1) Hypotension Code(s): I95.9 - HYPOTENSION, UNSPECIFIED (2) NHL (non-Hodgkin's lymphoma) Code(s): C85.90 - NON-HODGKIN LYMPHOMA, UNSPECIFIED, UNSPECIFIED SITE (3) Severe sepsis Code(s): A41.9 - SEPSIS, UNSPECIFIED ORGANISM; R65.20 - SEVERE SEPSIS WITHOUT SEPTIC SHOCK (4) Syncope Code(s): R55 - SYNCOPE AND COLLAPSE Qualifiers: Syncope type: vasovagal syncope Qualified Code(s): R55 - Syncope and collapse (5) Acute kidney injury Code(s): N17.9 - ACUTE KIDNEY FAILURE, UNSPECIFIED (6) Afib Code(s): I48.91 - UNSPECIFIED ATRIAL FIBRILLATION Qualifiers: Atrial fibrillation type: chronic Qualified Code(s): I48.2 - Chronic atrial fibrillation (7) Anemia Code(s): D64.9 - ANEMIA, UNSPECIFIED Qualifiers: Anemia type: other cause Other causes of anemia: antineoplastic chemotherapy Qualified Code(s): D64.81 - Anemia due to antineoplastic chemotherapy; T45.1X5A - Adverse effect of antineoplastic and immunosuppressive drugs, initial encounter (8) Chronic lymphocytic leukemia (CLL), B-cell Code(s): C91.10 - CHRONIC LYMPHOCYTIC LEUK OF B-CELL TYPE NOT ACHIEVE REMIS Qualifiers: Leukemia Active/Remission status: in remission Qualified Code(s): C91.11 - Chronic lymphocytic leukemia of B-cell type in remission (9) Lymphoplasmacytoid lymphoma, CLL Code(s): C83.00 - SMALL CELL B-CELL LYMPHOMA, UNSPECIFIED SITE (10) Weakness due to cerebrovascular accident (CVA) Code(s): I63.9 - CEREBRAL INFARCTION, UNSPECIFIED; R53.1 - WEAKNESS Assessment/Plan HOLD CARDIZEM FOR SBP <110MMHG IVF CHANGED D5/NS PER NEPHROLOGY MAINTANCE OF 83CC/HR MAGIC CUP/ENSURE ADDED FOR NUTRITION AND MONITOR BGM AC/HS MEDICALLY CLEARED FOR CYSTOSCOPY FOR RENAL OBSTRUCTION THE BENEFIT AT THIS POINT OUTWEIGHS THE RISK WITH WORSENING RENAL FUNCTION. TRANSFER TO ICU/TELE NOW WRIST RESTRAINTS/WILLIS CATH RENEWED CREAT 2.2 TODAY, DUE TO OBSTRUCTION AWAIT F/U DOPPLER LUE NEG DVT CXR CONGESTION CARDIO FOLLOW UP LASIX X 1 STOP IVF
--- NOTE | 2018-08-25 09:09 | PN ---
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 Pt reported not feeling well for few days prior to admission. ED note indicated he had been feeling weak and lightheaded for the past week and has had multiple times where he needed to sit down to rest. On day prior to admission, he had an episode of passing out while standing after feeling lightheaded and weak. Unclear how long he had LOC. Of note, pt was evaluated here in the ED on 08/08 for hematuria and signed out AMA when admission was recommended due to low BP. I was consulted for altered mental status. CT head completed and reviewed and no acute changes. Degenerative subluxation of C7 in relation to T1, C6 on C spine CT. Completed repeat CT head saturday, reviewed and no acute changes. More awake and alert today. Knows he's in the hospital, can tell me [place]'s, can tell me it's August 2018. Can tell me name of President. Allergies warfarin sodium [From Coumadin] Allergy (Severe, Verified 08/14/18 13:30) bleeding Active Medications Allopurinol (Zyloprim -) 100 mg PO DAILY [facility] Last Admin: 08/24/18 11:00 Dose: 100 mg Amino Acids (Prosource No Carb Liquid Pkt) 30 ml PO BID@0800,1730 [facility] Last Admin: 08/24/18 17:11 Dose: Not Given Atorvastatin Calcium (Lipitor -) 20 mg PO [facility] Last Admin: 08/24/18 21:33 Dose: 20 mg Bacitracin (Bacitracin -) 1 applic TP BID [facility] Last Admin: 08/24/18 21:32 Dose: 1 applic Dextrose/Sodium Chloride (D5-1/2ns -) 1,000 mls @ 75 mls/hr IV ASDIR [facility] Last Admin: 08/24/18 08:17 Dose: 75 mls/hr Metoprolol Tartrate (Lopressor -) 12.5 mg PO TID [facility] Last Admin: 08/25/18 06:02 Dose: 12.5 mg Mirtazapine (Remeron -) 7.5 mg PO [facility] Last Admin: 08/24/18 21:33 Dose: 7.5 mg Pantoprazole Sodium (Protonix -) 40 mg PO BID [facility] Last Admin: 08/24/18 21:33 Dose: 40 mg PHYSICAL EXAMINATION Vital Signs Period Temp Pulse Resp BP Sys/Gerardo Pulse Ox Last 24 Hr 97.3 F-98.4 F 73-115 18-20 114-142/58-80 95 GENERAL: Awake, alert, in no acute distress. HEAD: ecchymosis and abrasion left forehead, hematoma around left eye. abrasion below left eye EYES: Pupils equal, round and reactive to light, extraocular movements intact, sclera anicteric, conjunctiva clear. No lid lag. EARS, NOSE, THROAT: Ears normal, nares patent, oropharynx clear without exudates. Moist mucous membranes. NECK: Normal range of motion, supple without lymphadenopathy, JVD, or masses. LUNGS: Breath sounds equal, clear to auscultation bilaterally. No wheezes, and no crackles. No accessory muscle use. HEART: Regular rate and rhythm, normal S1 and S2 without murmur, rub or gallop. ABDOMEN: Soft, nontender, not distended, normoactive bowel sounds, no guarding, no rebound, no masses. No hepatomegaly or splenomegaly. chamberlain draining bloody urine MUSCULOSKELETAL: Normal range of motion at all joints. No bony deformities or tenderness. No CVA tenderness. UPPER EXTREMITIES: 2+ pulses, warm, well-perfused. No cyanosis. No clubbing. No peripheral edema. LOWER EXTREMITIES: 2+ pulses, warm, well-perfused. No calf tenderness. No peripheral edema. chronic vascular skin changes B/L LE: darkened, hypertrophic skin. NEUROLOGICAL: Awake, alert, dysarthric, sensory intact, moving extremities grossly, gait deferred PSYCHIATRIC: Cooperative. Good eye contact. Appropriate mood and affect. SKIN: Warm, dry, normal turgor, no rashes or lesions noted, normal capillary refill. CBCD WBC 12.9 K/mm3 (4.0-10.0) H 08/24/18 06:00 RBC 3.25 M/mm3 (4.00-5.60) L 08/24/18 06:00 Hgb 9.6 GM/dL (11.7-16.9) L 08/24/18 06:00 Hct 30.5 % (35.4-49) L 08/24/18 06:00 MCV 93.9 fl (80-96) 08/24/18 06:00 MCHC 31.6 g/dl (32.0-35.9) L 08/24/18 06:00 RDW 18.6 % (11.9-15.9) H 08/24/18 06:00 Plt Count 114 K/MM3 (134-434) L 08/24/18 06:00 MPV 10.7 fl (7.5-11.1) 08/24/18 06:00 CMP Sodium 144 mmol/L (136-145) 08/25/18 06:30 Potassium 4.6 mmol/L (3.5-5.1) 08/25/18 06:30 Chloride 116 mmol/L (98-107) H 08/25/18 06:30 Carbon Dioxide 22 mmol/L (21-32) 08/25/18 06:30 Anion Gap 6 MMOL/L (8-16) L 08/25/18 06:30 BUN 45 mg/dL (7-18) H 08/25/18 06:30 Creatinine 2.2 mg/dL (0.55-1.3) H 08/25/18 06:30 Creat Clearance w eGFR 28.45 (>60) 08/25/18 06:30 Random Glucose 92 mg/dL (74-106) 08/25/18 06:30 Calcium 7.4 mg/dL (8.5-10.1) L 08/25/18 06:30 Total Bilirubin 0.3 mg/dL (0.2-1) 08/25/18 06:30 AST 18 U/L (15-37) 08/25/18 06:30 ALT 16 U/L (13-61) 08/25/18 06:30 Alkaline Phosphatase 87 U/L (45-117) 08/25/18 06:30 Total Protein 4.4 g/dl (6.4-8.2) L 08/25/18 06:30 Albumin 1.3 g/dl (3.4-5.0) L 08/25/18 06:30 CARDIAC ENZYMES Creatine Kinase 64 IU/L (26-308) 08/15/18 05:30 Troponin I 0.05 ng/ml (0.00-0.05) 08/15/18 05:[address] head Impression. No evidence of acute intracranial hemorrhage, edema, midline shift, mass effect , or skull fracture. No CT evidence of acute territorial infarction. CT c spine Impression. No acute bony abnormalities are seen. Intact odontoid. The predental space is not widened. Multilevel cervical spondylosis. Facet joint arthropathy. Osteoarthritis of uncovertebral joints. 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 Pt reported not feeling well for few days prior to admission. ED note indicated he had been feeling weak and lightheaded for the past week and has had multiple times where he needed to sit down to rest. On day prior to admission, he had an episode of passing out while standing after feeling lightheaded and weak. Unclear how long he had LOC. Of note, pt was evaluated here in the ED on 08/08 for hematuria and signed out AMA when admission was recommended due to low BP. He had a chamberlain catheter in place from home which was draining bloody urine. I was consulted for alerted mental status. CT head completed and reviewed and no acute changes Mental status seemed improved from prior Infectious treatment ongoing, no longer on Abx Monitor renal function, optimize Urology follow up Monitor H/H, maintain normal range Cards follow up IV/PO hydration DVT ppx
[2018-08-25] MEDS ORDERED: METOPROLOL TARTRATE 5 MG/5 ML VIAL IVPB ONE (09:20)
[2018-08-25] MEDS ORDERED: FUROSEMIDE 40 MG/4 ML INJECTABLE VIAL IVPUSH ONE ×2 (09:20→15:02)
[2018-08-25 09:44] LABS: BASO % 0.1 % (0-2.0); EOS % 0.4 % (0-4.5); HEMATOCRIT 29.2 % (35.4-49); HEMOGLOBIN 9.4 GM/dL (11.7-16.9); MCH 30.6 pg (25.7-33.7); MCHC 32.3 g/dl (32.0-35.9); MEAN CELL VOLUME 94.7 fl (80-96); MEAN PLT VOLUME 11.5 fl (7.5-11.1); MONO % 5.9 % (3.8-10.2); NEUT % 57.6 % (42.8-82.8); PLATELET COUNT 106 K/MM3 (134-434); RBC 3.09 M/mm3 (4.00-5.60); RDW 18.6 % (11.9-15.9)
[2018-08-25] MEDS: AMINO ACIDS/PROTEIN HYDROLYS 30 ML LIQUID.PKT PO SCH (10:05)
[2018-08-25] MEDS: PANTOPRAZOLE 40 MG TABLET (FP) PO SCH (10:05)
[2018-08-25] MEDS: ALLOPURINOL 100 MG TABLET (FP) PO SCH (10:05)
[2018-08-25] MEDS ORDERED: PROPOFOL 20 ML ONE (14:32)
[2018-08-25] MEDS ORDERED: LACTATED RINGERS SOLUTION 1,000 ML IV SCH (15:15)
[2018-08-25] MEDS ORDERED: ceFAZolin SODIUM 1 GM VIAL IVPB ONE (15:32)
[2018-08-25] MEDS ORDERED: LIDOCAINE HCL 2% JELLY 10 ML CARTRIDGE ONE (15:34)
[2018-08-25] MEDS ORDERED: LIDOCAINE HCL 2% JELLY 10 ML CARTRIDGE TP ONE (15:54)
[2018-08-25] MEDS ORDERED: METOPROLOL TARTRATE 5 MG/5 ML VIAL ONE (16:23)
--- NOTE | 2018-08-25 16:24 | OP ---
Operative Note - Note: Operative Date: 08/25/18 Pre-Operative Diagnosis: Hematuria Operation: Cysto clot evacuation and chamberlain placement Findings: Bladder filled with clots. Active bleeding noted from the prostate Prostate is moderately obstructive. Ureteral orifices normally located with clear efflux Post-Operative Diagnosis: Same as Pre-op Surgeon: Mila Wise Anesthesia: Fractional Specimens Removed: Clots Operative Report Dictated: Yes
[2018-08-25] MEDS ORDERED: METOPROLOL TARTRATE 5 MG/5 ML VIAL IVPUSH ONE (16:25)
--- NOTE | 2018-08-25 17:28 | PN ---
Progress Note (short form) - Note Progress Note: Renal follow up for JOON on CKD Pt seen and examined at the bedside awake and alert but confused making urine in chamberlain, bloody Vital Signs Temperature 98.2 F 08/25/18 17:17 Pulse Rate 101 H 08/25/18 17:17 Respiratory Rate 20 08/25/18 17:17 Blood Pressure 115/75 08/25/18 17:17 O2 Sat by Pulse Oximetry (%) 98 08/25/18 17:17 Intake & Output 08/22/18 08/23/18 08/24/18 08/25/18 23:59 23:59 23:59 23:59 Intake Total 1440 1494 1750 1250 Output Total 150 002 688 7540 Balance 1290 1194 1050 -350 Weight 72.575 kg NAD confused No LE edema chamberlain with bloody urine CBC, BMP 08/25/18 07:00 08/25/18 06:30 Current Medications Furosemide (Lasix -) 80 mg PO BIDLASIX [facility] 87 year old gentleman known to our service with 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 #Syncope in setting of anemia and intravascular volume depletion #JOON secondary to volume depletion #Lactic acidosis #Leukocytosis #Urinary retention with chronic chamberlain #Hx of LE edema #Hematuria Renal function stable thus far CXR showed congestion, holing IVF and giving diuretics trend renal function and electrolytes for cystoscopy today followup urology recs Peewee Torres DO
[2018-08-25] MEDS: BACITRACIN 15 GM TUBE TOPICAL OINTMENT TP SCH (17:58)
[2018-08-25] MEDS: DEXTROSE 5%-0.45% SALINE 1,000 ML IV SCH (17:58)
--- NOTE | 2018-08-25 18:05 | PN ---
Progress Note, Physician History of Present Illness: Hematuria cleared after cystoscopy showing bladder filled with clots. Active bleeding noted from the prostate, prostate is moderately obstructive. Ureteral orifices normally located with clear efflux. Sensorium improved to baseline. Given IV Lopressor in PACU for rate-control. - Current Medication List Current Medications: Active Medications Furosemide (Lasix -) 80 mg PO BIDLASIX [facility] - Objective Vital Signs: Vital Signs Temperature 98.2 F 08/25/18 17:17 Pulse Rate 101 H 08/25/18 17:17 Respiratory Rate 20 08/25/18 17:17 Blood Pressure 115/75 08/25/18 17:17 O2 Sat by Pulse Oximetry (%) 98 08/25/18 17:17 Constitutional: Yes: No Distress, Calm, Thin Neck: Yes: Supple Cardiovascular: Yes: Pulse Irregular Respiratory: Yes: Regular, Diminished Gastrointestinal: Yes: Soft, Hypoactive Bowel Sounds Genitourinary: Yes: Chamberlain Present, Hematuria Edema: No Labs: CBC, BMP 08/25/18 07:00 08/25/18 06:30 INR, PTT INR 1.12 (0.83-1.09) H 08/16/18 07:30 - ....Imaging Chest X-ray: Report Reviewed (CHF with bilateral effusions) Problem List - Problems (1) Syncope Code(s): R55 - SYNCOPE AND COLLAPSE Qualifiers: Syncope type: vasovagal syncope Qualified Code(s): R55 - Syncope and collapse (2) Acute kidney injury Code(s): N17.9 - ACUTE KIDNEY FAILURE, UNSPECIFIED (3) Anemia due to blood loss, acute Code(s): D62 - ACUTE POSTHEMORRHAGIC ANEMIA (4) Atrial fibrillation with rapid ventricular response Code(s): I48.91 - UNSPECIFIED ATRIAL FIBRILLATION (5) Chronic lymphocytic leukemia (CLL), B-cell Code(s): C91.10 - CHRONIC LYMPHOCYTIC LEUK OF B-CELL TYPE NOT ACHIEVE REMIS Qualifiers: Leukemia Active/Remission status: in remission Qualified Code(s): C91.11 - Chronic lymphocytic leukemia of B-cell type in remission (6) Hyperlipidemia Code(s): E78.5 - HYPERLIPIDEMIA, UNSPECIFIED Qualifiers: Hyperlipidemia type: pure hypercholesterolemia Qualified Code(s): E78.00 - Pure hypercholesterolemia, unspecified; E78.0 - Pure hypercholesterolemia (7) Mesenteric infarction Code(s): K55.069 - ACUTE INFARCTION OF INTESTINE, PART AND EXTENT UNSPECIFIED (8) TIA (transient ischemic attack) Code(s): G45.9 - TRANSIENT CEREBRAL ISCHEMIC ATTACK, UNSPECIFIED Qualifiers: Transient cerebral ischemia type: unspecified Qualified Code(s): G45.9 - Transient cerebral ischemic attack, unspecified (9) Urinary hesitancy Code(s): R39.11 - HESITANCY OF MICTURITION (10) Weakness due to cerebrovascular accident (CVA) Code(s): I63.9 - CEREBRAL INFARCTION, UNSPECIFIED; R53.1 - WEAKNESS (11) Acute on chronic diastolic heart failure Code(s): I50.33 - ACUTE ON CHRONIC DIASTOLIC (CONGESTIVE) HEART FAILURE Assessment/Plan Echo: 01/23/2018 Normal biventricular size and fxn, mild-mod TR, mild , mod LAE, mild HILTON 1. Syncope in setting of anemia and intravascular volume depletion from overdiuresis 2. Anemia received pRBC with h/o gastrointestinal bleed related to ischemic colitis, angiodysplasias of the stomach and colon 3. CAD angina pectoris, stable 4. Acute on chronic diastolic heart failure 5. Persistent atrial fibrillation with RVR [id number] score of 6 on A/C now off DOAC's/Eliquis 6. History of CVA/TIA 7. HTN 8. Hypercholesterolemia 9. 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 History of recurrent diverticular bleed 11. Acute on CKD (pre-renal) referable to volume depletion from overdiuresis improving, chronic mild-moderate left hydronephrosis 12. Hematuria, urinary retention with chronic chamberlain 13. 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 Resume Eliquis 2.5 bid once hematuria resolves, resume Metoprolol 12.5 tid and Lipitor 20 qhs for rate-control 2. Transfuse to maintain Hgb equal or > 8.0 3. Diuretics with monitor diuretic response, renal function and electrolytes 4. Completed empiric zosyn course per ID, GI protection
[2018-08-26] MEDS: METOPROLOL TARTRATE 25 MG TABLET (FP) PO SCH ×3 (06:02→21:56)
[2018-08-26] MEDS: FUROSEMIDE 40 MG TABLET (FP) PO SCH ×2 (06:03→15:29)
--- NOTE | 2018-08-26 07:27 | PN ---
Progress Note (short form) - Note Progress Note: Chief Complaint: Events noted, notes reviewed, awake and alert, denies any chest pain or dyspnea, atrial fibrillation persists with periods of rapid ventricular response History of Present Illness: Seen and examined on telemetry. Events noted, notes reviewed, awake and alert, denies any chest pain or dyspnea, atrial fibrillation persists with periods of rapid ventricular response Echocardiography dated 01/23/2018 revealed normal bi-ventricular size and function, mild-moderate TR, mild , moderate LAE, mild [place] Medications: Current Medications Furosemide (Lasix -) 80 mg PO BIDLASIX [facility] Last Admin: 08/26/18 06:03 Dose: 80 mg Metoprolol Tartrate (Lopressor -) 12.5 mg PO TID [facility] Last Admin: 08/26/18 06:02 Dose: 12.5 mg Review of Systems - Review of Systems Constitutional: no symptoms reported Respiratory: denies Cough or Sputum Production Cardiovascular: as noted above Gastrointestinal: denies Nausea, Vomiting, Diarrhea, Constipation or Abdominal Pain Genitourinary: no symptoms reported Musculoskeletal: no symptoms reported Endocrine: no symptoms reported Vital Signs: Last Vital Signs Temp Pulse Resp BP Pulse Ox 98 F 122 H 20 139/82 98 08/26/18 07:05 08/26/18 07:05 08/26/18 02:21 08/26/18 07:05 08/25/18 21:00 Intake & Output 08/23/18 08/24/18 08/25/18 08/26/18 23:59 23:59 23:59 23:59 Intake Total 1494 1750 1400 100 Output Total 855 129 3880 Balance 1194 1050 -200 100 Constitutional: Awake No Distress Neck: Supple Negative JVD No Bruit Respiratory: Diminished Breath Sounds at the Bases Cardiovascular: S1 S2 Irregularly Irregular Grade 2/6 SM Gastrointestinal: Soft Benign Normal Bowel Sounds Ext: Trace Edema Labs: CBC, BMP 08/25/18 07:00 08/25/18 06:30 Hepatic Panel Total Bilirubin 0.3 mg/dL (0.2-1) 08/25/18 06:30 AST 18 U/L (15-37) 08/25/18 06:30 ALT 16 U/L (13-61) 08/25/18 06:30 Alkaline Phosphatase 87 U/L (45-117) 08/25/18 06:30 Albumin 1.3 g/dl (3.4-5.0) L 08/25/18 06:30 Assessment/Plan ASSESSMENT: 1. Post op day #1 post cysto clot evacuation and chamberlain placement, for persistent hematuria 2. Syncope in setting of anemia and intravascular volume depletion from over- diuresis, resolved 3. CAD angina pectoris, stable 4. 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 Persistent atrial fibrillation with periods of rapid ventricular response [id number] score of 6 of off DOAC's/Eliquis 6. History of CVA/TIA 7. HTN 8. Hypercholesterolemia 9. 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 History of recurrent diverticular bleed 12. Acute on CKD referable to volume depletion from over-diuresis 13. History of CLL with anemia and thrombocytopenia 14. History of non Hodgkin's lymphoma PLAN: 1. Continue Lopressor with caution hemodynamics permitting 2. Continue to withhold Cardizem 3. Continue to hold Eliquis at this point pending resolution of the above noted presentation (once hematuria resolves), mcfp A/C is recommended considering the above noted co-morbidities unless it is absolutely contraindicated 4. Continue Lasix with caution and close monitoring renal function 5. Monitor CBC and transfuse to maintain Hg equal or > 8.0 Bouchra Lu M.D.
--- NOTE | 2018-08-26 09:18 | PN ---
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 Pt reported not feeling well for few days prior to admission. ED note indicated he had been feeling weak and lightheaded for the past week and has had multiple times where he needed to sit down to rest. On day prior to admission, he had an episode of passing out while standing after feeling lightheaded and weak. Unclear how long he had LOC. Of note, pt was evaluated here in the ED on 08/08 for hematuria and signed out AMA when admission was recommended due to low BP. I was consulted for altered mental status. CT head completed and reviewed and no acute changes. Degenerative subluxation of C7 in relation to T1, C6 on C spine CT. Completed repeat CT head last saturday, reviewed and no acute changes. Completed urology procedure 08/25, cysto clot evacuation per notes reviewed. Knows he's in the hospital, said jarod gallardo at first but informed it's [facility], can tell me it's August 2018. Can tell me name of President. For Vice says "glen" instead of alexis. Remains stable. Allergies warfarin sodium [From Coumadin] Allergy (Severe, Verified 08/14/18 13:30) bleeding Active Medications Furosemide (Lasix -) 80 mg PO BIDLASIX [facility] Last Admin: 08/26/18 06:03 Dose: 80 mg Metoprolol Tartrate (Lopressor -) 12.5 mg PO TID [facility] Last Admin: 08/26/18 06:02 Dose: 12.5 mg PHYSICAL EXAMINATION Vital Signs Temperature 98 F 08/26/18 07:05 Pulse Rate 122 H 08/26/18 07:05 Respiratory Rate 18 08/26/18 07:05 Blood Pressure 139/82 08/26/18 07:05 O2 Sat by Pulse Oximetry (%) 98 08/25/18 21:00 GENERAL: Awake, alert, in no acute distress. HEAD: ecchymosis and abrasion left forehead, hematoma around left eye. abrasion below left eye EYES: Pupils equal, round and reactive to light, extraocular movements intact, sclera anicteric, conjunctiva clear. No lid lag. EARS, NOSE, THROAT: Ears normal, nares patent, oropharynx clear without exudates. Moist mucous membranes. NECK: Normal range of motion, supple without lymphadenopathy, JVD, or masses. LUNGS: Breath sounds equal, clear to auscultation bilaterally. No wheezes, and no crackles. No accessory muscle use. HEART: Regular rate and rhythm, normal S1 and S2 without murmur, rub or gallop. ABDOMEN: Soft, nontender, not distended, normoactive bowel sounds, no guarding, no rebound, no masses. No hepatomegaly or splenomegaly. chamberlain draining bloody urine MUSCULOSKELETAL: Normal range of motion at all joints. No bony deformities or tenderness. No CVA tenderness. UPPER EXTREMITIES: 2+ pulses, warm, well-perfused. No cyanosis. No clubbing. No peripheral edema. LOWER EXTREMITIES: 2+ pulses, warm, well-perfused. No calf tenderness. No peripheral edema. chronic vascular skin changes B/L LE: darkened, hypertrophic skin. NEUROLOGICAL: Awake, alert, dysarthric, sensory intact, moving extremities grossly, gait deferred PSYCHIATRIC: Cooperative. Good eye contact. Appropriate mood and affect. SKIN: Warm, dry, normal turgor, no rashes or lesions noted, normal capillary refill. CBCD WBC 9.0 K/mm3 (4.0-10.0) 08/25/18 07:00 RBC 3.09 M/mm3 (4.00-5.60) L 08/25/18 07:00 Hgb 9.4 GM/dL (11.7-16.9) L 08/25/18 07:00 Hct 29.2 % (35.4-49) L 08/25/18 07:00 MCV 94.7 fl (80-96) 08/25/18 07:00 MCHC 32.3 g/dl (32.0-35.9) 08/25/18 07:00 RDW 18.6 % (11.9-15.9) H 08/25/18 07:00 Plt Count 106 K/MM3 (134-434) L 08/25/18 07:00 MPV 11.5 fl (7.5-11.1) H 08/25/18 07:00 CMP Sodium 144 mmol/L (136-145) 08/25/18 06:30 Potassium 4.6 mmol/L (3.5-5.1) 08/25/18 06:30 Chloride 116 mmol/L (98-107) H 08/25/18 06:30 Carbon Dioxide 22 mmol/L (21-32) 08/25/18 06:30 Anion Gap 6 MMOL/L (8-16) L 08/25/18 06:30 BUN 45 mg/dL (7-18) H 08/25/18 06:30 Creatinine 2.2 mg/dL (0.55-1.3) H 08/25/18 06:30 Creat Clearance w eGFR 28.45 (>60) 08/25/18 06:30 Random Glucose 92 mg/dL (74-106) 08/25/18 06:30 Calcium 7.4 mg/dL (8.5-10.1) L 08/25/18 06:30 Total Bilirubin 0.3 mg/dL (0.2-1) 08/25/18 06:30 AST 18 U/L (15-37) 08/25/18 06:30 ALT 16 U/L (13-61) 08/25/18 06:30 Alkaline Phosphatase 87 U/L (45-117) 08/25/18 06:30 Total Protein 4.4 g/dl (6.4-8.2) L 08/25/18 06:30 Albumin 1.3 g/dl (3.4-5.0) L 08/25/18 06:30 CARDIAC ENZYMES Creatine Kinase 64 IU/L (26-308) 08/15/18 05:30 Troponin I 0.05 ng/ml (0.00-0.05) 08/15/18 05:[address] head Impression. No evidence of acute intracranial hemorrhage, edema, midline shift, mass effect , or skull fracture. No CT evidence of acute territorial infarction. CT c spine Impression. No acute bony abnormalities are seen. Intact odontoid. The predental space is not widened. Multilevel cervical spondylosis. Facet joint arthropathy. Osteoarthritis of uncovertebral joints. 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 Pt reported not feeling well for few days prior to admission. ED note indicated he had been feeling weak and lightheaded for the past week and has had multiple times where he needed to sit down to rest. On day prior to admission, he had an episode of passing out while standing after feeling lightheaded and weak. Unclear how long he had LOC. Of note, pt was evaluated here in the ED on 08/08 for hematuria and signed out AMA when admission was recommended due to low BP. He had a chamberlain catheter in place from home which was draining bloody urine. I was consulted for alerted mental status. CT head completed and reviewed and no acute changes Mental status stable at this time Infectious treatment ongoing, no longer on Abx Monitor renal function, optimize Urology follow up, status post clot evacuation Monitor hematuria, H/H, maintain normal range Cards follow up IV/PO hydration DVT ppx
[2018-08-26 09:38] LABS: HEMATOCRIT 31.7 % (35.4-49); HEMOGLOBIN 10.1 GM/dL (11.7-16.9); MCH 29.7 pg (25.7-33.7); MCHC 31.8 g/dl (32.0-35.9); MEAN CELL VOLUME 93.4 fl (80-96); PLATELET COUNT 114 K/MM3 (134-434); RBC 3.39 M/mm3 (4.00-5.60); RDW 18.7 % (11.9-15.9); WHITE BLOOD COUNT 10.2 K/mm3 (4.0-10.0)
[2018-08-26 10:12] LABS: ANION GAP 6 MMOL/L (8-16); BLOOD UREA NITROGEN 39 mg/dL (7-18); CALCIUM 7.8 mg/dL (8.5-10.1); CHLORIDE 114 mmol/L (98-107); CO2 28 mmol/L (21-32); CREATININE 1.7 mg/dL (0.55-1.3); GLUCOSE,RANDOM 75 mg/dL (74-106); POTASSIUM 4.1 mmol/L (3.5-5.1); SODIUM 148 mmol/L (136-145)
--- NOTE | 2018-08-26 10:43 | PN ---
Progress Note, Physician Chief Complaint: s/p cystoscopy evacuation of clots under general anesthesia - Current Medication List Current Medications: Active Medications Furosemide (Lasix -) 80 mg PO BIDLASIX [facility] Last Admin: 08/26/18 06:03 Dose: 80 mg Metoprolol Tartrate (Lopressor -) 12.5 mg PO TID [facility] Last Admin: 08/26/18 06:02 Dose: 12.5 mg - Objective Vital Signs: Vital Signs Temperature 98 F 08/26/18 07:05 Pulse Rate 122 H 08/26/18 07:05 Respiratory Rate 18 08/26/18 07:05 Blood Pressure 139/82 08/26/18 07:05 O2 Sat by Pulse Oximetry (%) 98 08/25/18 21:00 Constitutional: Yes: Well Nourished Cardiovascular: Yes: WNL Respiratory: Yes: WNL Gastrointestinal: Yes: WNL Labs: CBC, BMP 08/26/18 09:00 08/26/18 09:00 INR, PTT INR 1.12 (0.83-1.09) H 08/16/18 07:30 Assessment/Plan No complications of anesthesia, dept of anesthesia will sign off care at this time.
[2018-08-26] MEDS ORDERED: METOPROLOL TARTRATE 25 MG TABLET (FP) PO ONE (11:13)
--- NOTE | 2018-08-26 11:16 | PN ---
Progress Note, Physician Chief Complaint: Sepsis Hematuria Anemia History of Present Illness: NAD in bed Indwelling chamberlain cath +hematuria Anemia stable Seen by Urology Had cystoscopy yesterday Renal fxn improving - Current Medication List Current Medications: Active Medications Furosemide (Lasix -) 80 mg PO BIDLASIX [facility] Last Admin: 08/26/18 06:03 Dose: 80 mg Metoprolol Tartrate (Lopressor -) 12.5 mg PO TID [facility] Last Admin: 08/26/18 06:02 Dose: 12.5 mg - Objective Vital Signs: Vital Signs Temperature 98 F 08/26/18 07:05 Pulse Rate 122 H 08/26/18 07:05 Respiratory Rate 18 08/26/18 07:05 Blood Pressure 139/82 08/26/18 07:05 O2 Sat by Pulse Oximetry (%) 98 08/25/18 21:00 Constitutional: Yes: Well Nourished, No Distress, Calm Cardiovascular: Yes: Tachycardia, Pulse Irregular Respiratory: Yes: Regular Gastrointestinal: Yes: Normal Bowel Sounds, Soft Musculoskeletal: Yes: Muscle Weakness Extremities: Yes: WNL Edema: Yes Edema: LLE: 1+, RLE: 1+ Peripheral Pulses WNL: Yes Neurological: Yes: Alert, Oriented Psychiatric: Yes: Alert, Oriented Labs: CBC, BMP 08/26/18 09:00 08/26/18 09:00 INR, PTT INR 1.12 (0.83-1.09) H 08/16/18 07:30 Problem List - Problems (1) Afib Assessment/Plan: -Eliquis on hold due to hematuria -tele monitoring- uncontrolled in 120's consistently at is time -ordered lopressor 12.5 mg once to make morning dose to 25 mg. -Change lopressor to 25 mg po TID -Cardiology on board Code(s): I48.91 - UNSPECIFIED ATRIAL FIBRILLATION Qualifiers: Atrial fibrillation type: chronic Qualified Code(s): I48.2 - Chronic atrial fibrillation (2) Anemia Assessment/Plan: 12/20 to hematuria -Hold eliquis -Hg stable -Hematology consult -received 2 units of PRBC this admission Code(s): D64.9 - ANEMIA, UNSPECIFIED Qualifiers: Anemia type: other cause Other causes of anemia: antineoplastic chemotherapy Qualified Code(s): D64.81 - Anemia due to antineoplastic chemotherapy; T45.1X5A - Adverse effect of antineoplastic and immunosuppressive drugs, initial encounter (3) Chronic kidney disease (CKD) Assessment/Plan: at baseline now -monitor trend -U/S renal/bladder left hydronephrosis -Cystoscopy cancelled today due to AMS, reassess Saturday Code(s): N18.9 - CHRONIC KIDNEY DISEASE, UNSPECIFIED Qualifiers: Chronic kidney disease stage: stage 3 (moderate) Qualified Code(s): N18.3 - Chronic kidney disease, stage 3 (moderate) (4) Chronic lymphocytic leukemia (CLL), B-cell Code(s): C91.10 - CHRONIC LYMPHOCYTIC LEUK OF B-CELL TYPE NOT ACHIEVE REMIS Qualifiers: Leukemia Active/Remission status: in remission Qualified Code(s): C91.11 - Chronic lymphocytic leukemia of B-cell type in remission (5) Hematuria Assessment/Plan: -chamberlain cath -urology consult -UC negative -Had Cystoscopy: Operative Date: 08/25/18 Pre-Operative Diagnosis: Hematuria Operation: Cysto clot evacuation and chamberlain placement Findings: Bladder filled with clots. Active bleeding noted from the prostate Prostate is moderately obstructive. Ureteral orifices normally located with clear efflux Post-Operative Diagnosis: Same as Pre-op Surgeon: Mila Wise S -H/H stable Code(s): R31.9 - HEMATURIA, UNSPECIFIED Qualifiers: Hematuria type: gross Qualified Code(s): R31.0 - Gross hematuria (6) Assessment/Plan: -Seen by Psychiatry -Remeron 7.5 mg po HS Code(s): F05 - DELIRIUM DUE TO KNOWN PHYSIOLOGICAL CONDITION Assessment/Plan see problem list physical therapy
[2018-08-26] MEDS ORDERED: METOPROLOL TARTRATE 25 MG TABLET (FP) PO SCH (11:18)
[2018-08-26] MEDS: PANTOPRAZOLE 40 MG TABLET (FP) PO SCH (11:32)
[2018-08-26] MEDS: ALLOPURINOL 100 MG TABLET (FP) PO SCH (11:32)
--- NOTE | 2018-08-26 15:38 | PN ---
Progress Note (short form) - Note Progress Note: Renal follow up for JOON on CKD Pt seen and examined at the bedside awake and alert confusion seems improved wants to go home denies any sob, cp, abd pain s/p cystoscope yesterday Vital Signs Temperature 98 F 08/26/18 07:05 Pulse Rate 122 H 08/26/18 07:05 Respiratory Rate 18 08/26/18 10:00 Blood Pressure 139/82 08/26/18 07:05 O2 Sat by Pulse Oximetry (%) 98 08/26/18 10:00 Intake & Output 08/23/18 08/24/18 08/25/18 08/26/18 23:59 23:59 23:59 23:59 Intake Total 1494 1750 1400 100 Output Total 355 973 2915 2000 Balance 1194 1050 -200 -1900 NAD confused No LE edema chamberlain with bloody urine CBC, BMP 08/26/18 09:00 08/26/18 09:00 Current Medications Allopurinol (Zyloprim -) 100 mg PO DAILY [facility] Last Admin: 08/26/18 11:32 Dose: 100 mg Atorvastatin Calcium (Lipitor -) 20 mg PO HS [facility] Furosemide (Lasix -) 80 mg PO BIDLASIX [facility] Last Admin: 08/26/18 15:29 Dose: Not Given Metoprolol Tartrate (Lopressor -) 25 mg PO TID [facility] Last Admin: 08/26/18 15:29 Dose: Not Given Pantoprazole Sodium (Protonix -) 40 mg PO DAILY [facility] Last Admin: 08/26/18 11:32 Dose: 40 mg 87 year old gentleman known to our service with 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 #Syncope in setting of anemia and intravascular volume depletion #JOON secondary to volume depletion #Lactic acidosis (now resolved) #Leukocytosis #Urinary retention with chronic chamberlain #Hx of LE edema #Hematuria #Hypernatremia Renal function now improved to baseline s/p cystoscope and evacuation fo bladder clot Continue Lasix 80mg BID trend renal function and electrolytes if renal function stable can be discharged from perspective Urology follow up maintain chamberlain oral water intake off Eliquis for now Peewee Torres DO
[2018-08-26] MEDS ORDERED: dilTIAZem HCL 50 MG/10 ML - 10 ML VIAL IVPUSH PRN (15:54)
[2018-08-26] MEDS: ATORVASTATIN CA 20 MG TABLET (FP) PO SCH (21:55)
[2018-08-27] MEDS: METOPROLOL TARTRATE 25 MG TABLET (FP) PO SCH ×3 (05:51→22:24)
[2018-08-27] MEDS: FUROSEMIDE 40 MG TABLET (FP) PO SCH ×2 (05:51→14:26)
--- NOTE | 2018-08-27 09:15 | PN ---
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 Pt reported not feeling well for few days prior to admission. ED note indicated he had been feeling weak and lightheaded for the past week and has had multiple times where he needed to sit down to rest. On day prior to admission, he had an episode of passing out while standing after feeling lightheaded and weak. Unclear how long he had LOC. Of note, pt was evaluated here in the ED on 08/08 for hematuria and signed out AMA when admission was recommended due to low BP. I was consulted for altered mental status. CT head completed and reviewed and no acute changes. Degenerative subluxation of C7 in relation to T1, C6 on C spine CT. Completed repeat CT head last saturday, reviewed and no acute changes. Completed urology procedure 08/25, cysto clot evacuation per notes reviewed. Knows he's in the hospital, can tell me it's August 2018. Can tell me name of President. States he feels well this AM. No complaints. Active Medications Allopurinol (Zyloprim -) 100 mg PO DAILY [facility] Last Admin: 08/26/18 11:32 Dose: 100 mg Atorvastatin Calcium (Lipitor -) 20 mg PO HS [facility] Last Admin: 08/26/18 21:55 Dose: 20 mg Diltiazem HCl (Cardizem Injection -) 10 mg IVPUSH Q4H PRN PRN Reason: TACHYCARDIA Last Admin: 08/26/18 17:55 Dose: 10 mg Furosemide (Lasix -) 80 mg PO DAILY@0600 [facility] Last Admin: 08/27/18 05:51 Dose: 80 mg Furosemide (Lasix -) 40 mg PO DAILY@1400 [facility] Metoprolol Tartrate (Lopressor -) 25 mg PO TID [facility] Last Admin: 08/27/18 05:51 Dose: 25 mg Pantoprazole Sodium (Protonix -) 40 mg PO DAILY [facility] Last Admin: 08/26/18 11:32 Dose: 40 mg PHYSICAL EXAMINATION Vital Signs Period Temp Pulse Resp BP Sys/Gerardo Pulse Ox Last 24 Hr 97.5 F-98.1 F 65-119 18-20 95-129/53-76 98-98 GENERAL: Awake, alert, in no acute distress. HEAD: ecchymosis and abrasion left forehead, hematoma around left eye. abrasion below left eye EYES: Pupils equal, round and reactive to light, extraocular movements intact, sclera anicteric, conjunctiva clear. No lid lag. EARS, NOSE, THROAT: Ears normal, nares patent, oropharynx clear without exudates. Moist mucous membranes. NECK: Normal range of motion, supple without lymphadenopathy, JVD, or masses. LUNGS: Breath sounds equal, clear to auscultation bilaterally. No wheezes, and no crackles. No accessory muscle use. HEART: Regular rate and rhythm, normal S1 and S2 without murmur, rub or gallop. ABDOMEN: Soft, nontender, not distended, normoactive bowel sounds, no guarding, no rebound, no masses. No hepatomegaly or splenomegaly. chamberlain draining bloody urine MUSCULOSKELETAL: Normal range of motion at all joints. No bony deformities or tenderness. No CVA tenderness. UPPER EXTREMITIES: 2+ pulses, warm, well-perfused. No cyanosis. No clubbing. No peripheral edema. LOWER EXTREMITIES: 2+ pulses, warm, well-perfused. No calf tenderness. No peripheral edema. chronic vascular skin changes B/L LE: darkened, hypertrophic skin. NEUROLOGICAL: Awake, alert, dysarthric, sensory intact, moving extremities grossly, gait deferred PSYCHIATRIC: Cooperative. Good eye contact. Appropriate mood and affect. SKIN: Warm, dry, normal turgor, no rashes or lesions noted, normal capillary refill. CBCD WBC 10.2 K/mm3 (4.0-10.0) H 08/26/18 09:00 RBC 3.39 M/mm3 (4.00-5.60) L 08/26/18 09:00 Hgb 10.1 GM/dL (11.7-16.9) L 08/26/18 09:00 Hct 31.7 % (35.4-49) L 08/26/18 09:00 MCV 93.4 fl (80-96) 08/26/18 09:00 MCHC 31.8 g/dl (32.0-35.9) L 08/26/18 09:00 RDW 18.7 % (11.9-15.9) H 08/26/18 09:00 Plt Count 114 K/MM3 (134-434) L 08/26/18 09:00 MPV 11.0 fl (7.5-11.1) 08/26/18 09:00 CMP Sodium 148 mmol/L (136-145) H 08/26/18 09:00 Potassium 4.1 mmol/L (3.5-5.1) 08/26/18 09:00 Chloride 114 mmol/L (98-107) H 08/26/18 09:00 Carbon Dioxide 28 mmol/L (21-32) 08/26/18 09:00 Anion Gap 6 MMOL/L (8-16) L 08/26/18 09:00 BUN 39 mg/dL (7-18) H 08/26/18 09:00 Creatinine 1.7 mg/dL (0.55-1.3) H 08/26/18 09:00 Creat Clearance w eGFR 38.32 (>60) 08/26/18 09:00 Random Glucose 75 mg/dL (74-106) 08/26/18 09:00 Calcium 7.8 mg/dL (8.5-10.1) L 08/26/18 09:00 Total Bilirubin 0.3 mg/dL (0.2-1) 08/25/18 06:30 AST 18 U/L (15-37) 08/25/18 06:30 ALT 16 U/L (13-61) 08/25/18 06:30 Alkaline Phosphatase 87 U/L (45-117) 08/25/18 06:30 Total Protein 4.4 g/dl (6.4-8.2) L 08/25/18 06:30 Albumin 1.3 g/dl (3.4-5.0) L 08/25/18 06:30 CARDIAC ENZYMES Creatine Kinase 64 IU/L (26-308) 08/15/18 05:30 Troponin I 0.05 ng/ml (0.00-0.05) 08/15/18 05:[address] head Impression. No evidence of acute intracranial hemorrhage, edema, midline shift, mass effect , or skull fracture. No CT evidence of acute territorial infarction. CT c spine Impression. No acute bony abnormalities are seen. Intact odontoid. The predental space is not widened. Multilevel cervical spondylosis. Facet joint arthropathy. Osteoarthritis of uncovertebral joints. 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 Pt reported not feeling well for few days prior to admission. ED note indicated he had been feeling weak and lightheaded for the past week and has had multiple times where he needed to sit down to rest. On day prior to admission, he had an episode of passing out while standing after feeling lightheaded and weak. Unclear how long he had LOC. Of note, pt was evaluated here in the ED on 08/08 for hematuria and signed out AMA when admission was recommended due to low BP. He had a chamberlain catheter in place from home which was draining bloody urine. I was consulted for alerted mental status. Mental status has been stable Infectious treatment ongoing, no longer on Abx Monitor renal function, optimize Monitor bp, maintain normotensive range Urology follow up, status post clot evacuation Monitor hematuria, H/H, maintain normal range Cards follow up IV/PO hydration DVT ppx
[2018-08-27] MEDS ORDERED: PT OWN MED DRAWER 7, Y5N ONE (10:44)
[2018-08-27] MEDS: PANTOPRAZOLE 40 MG TABLET (FP) PO SCH (11:10)
[2018-08-27] MEDS: ALLOPURINOL 100 MG TABLET (FP) PO SCH (11:10)
--- NOTE | 2018-08-27 13:04 | PN ---
Progress Note, Physician History of Present Illness: Hematuria clearing after cystoscopy showing bladder filled with clots. Active bleeding noted from the prostate, prostate is moderately obstructive. Ureteral orifices normally located with clear efflux. Sensorium improved to baseline, reports suprapubic pain. - Current Medication List Current Medications: Active Medications Allopurinol (Zyloprim -) 100 mg PO DAILY [facility] Last Admin: 08/27/18 11:10 Dose: 100 mg Atorvastatin Calcium (Lipitor -) 20 mg PO HS [facility] Last Admin: 08/26/18 21:55 Dose: 20 mg Diltiazem HCl (Cardizem Injection -) 10 mg IVPUSH Q4H PRN PRN Reason: TACHYCARDIA Last Admin: 08/26/18 17:55 Dose: 10 mg Furosemide (Lasix -) 80 mg PO DAILY@0600 [facility] Last Admin: 08/27/18 05:51 Dose: 80 mg Furosemide (Lasix -) 40 mg PO DAILY@1400 [place] Metoprolol Tartrate (Lopressor -) 25 mg PO TID [facility] Last Admin: 08/27/18 05:51 Dose: 25 mg Pantoprazole Sodium (Protonix -) 40 mg PO DAILY [facility] Last Admin: 08/27/18 11:10 Dose: 40 mg - Objective Vital Signs: Vital Signs Temperature 97.9 F 08/27/18 09:47 Pulse Rate 109 H 08/27/18 09:47 Respiratory Rate 18 08/27/18 09:47 Blood Pressure 107/57 L 08/27/18 09:47 O2 Sat by Pulse Oximetry (%) 98 08/26/18 21:00 Constitutional: Yes: No Distress, Calm, Thin Neck: Yes: Supple Cardiovascular: Yes: Tachycardia, Pulse Irregular Respiratory: Yes: Regular, Diminished Gastrointestinal: Yes: Normal Bowel Sounds, Soft Genitourinary: Yes: Chamberlain Present, Hematuria Edema: No Labs: CBC, BMP 08/26/18 09:00 08/26/18 09:00 INR, PTT INR 1.12 (0.83-1.09) H 08/16/18 07:30 - ....Imaging EKG: Report Reviewed (Tele: Rapid afib) Problem List - Problems (1) Syncope Code(s): R55 - SYNCOPE AND COLLAPSE Qualifiers: Syncope type: vasovagal syncope Qualified Code(s): R55 - Syncope and collapse (2) Acute kidney injury Code(s): N17.9 - ACUTE KIDNEY FAILURE, UNSPECIFIED (3) Anemia due to blood loss, acute Code(s): D62 - ACUTE POSTHEMORRHAGIC ANEMIA (4) Atrial fibrillation with rapid ventricular response Code(s): I48.91 - UNSPECIFIED ATRIAL FIBRILLATION (5) Chronic lymphocytic leukemia (CLL), B-cell Code(s): C91.10 - CHRONIC LYMPHOCYTIC LEUK OF B-CELL TYPE NOT ACHIEVE REMIS Qualifiers: Leukemia Active/Remission status: in remission Qualified Code(s): C91.11 - Chronic lymphocytic leukemia of B-cell type in remission (6) Hyperlipidemia Code(s): E78.5 - HYPERLIPIDEMIA, UNSPECIFIED Qualifiers: Hyperlipidemia type: pure hypercholesterolemia Qualified Code(s): E78.00 - Pure hypercholesterolemia, unspecified; E78.0 - Pure hypercholesterolemia (7) Mesenteric infarction Code(s): K55.069 - ACUTE INFARCTION OF INTESTINE, PART AND EXTENT UNSPECIFIED (8) TIA (transient ischemic attack) Code(s): G45.9 - TRANSIENT CEREBRAL ISCHEMIC ATTACK, UNSPECIFIED Qualifiers: Transient cerebral ischemia type: unspecified Qualified Code(s): G45.9 - Transient cerebral ischemic attack, unspecified (9) Urinary hesitancy Code(s): R39.11 - HESITANCY OF MICTURITION (10) Weakness due to cerebrovascular accident (CVA) Code(s): I63.9 - CEREBRAL INFARCTION, UNSPECIFIED; R53.1 - WEAKNESS (11) Acute on chronic diastolic heart failure Code(s): I50.33 - ACUTE ON CHRONIC DIASTOLIC (CONGESTIVE) HEART FAILURE Assessment/Plan Echo: 01/23/2018 Normal biventricular size and fxn, mild-mod TR, mild , mod LAE, mild HILTON 1. Post op day #2 post cysto clot evacuation and chamberlain placement, for persistent hematuria 2. Syncope in setting of anemia and intravascular volume depletion from overdiuresis 3. 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 CAD angina pectoris, stable 5. Acute on chronic diastolic heart failure 6. Persistent atrial fibrillation with RVR [id number] score of 6 on A/C now off DOAC's/Eliquis 7. History of CVA/TIA 8. HTN 9. Hypercholesterolemia 10. 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 History of recurrent diverticular bleed 12. Acute on CKD (pre-renal) referable to volume depletion from overdiuresis improving, chronic mild-moderate left hydronephrosis 13. 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 Resume Eliquis 2.5 bid once hematuria resolves, increased Metoprolol 25 tid, start cardizem 30 tid and Lipitor 20 qhs for rate-control 2. Transfuse to maintain Hgb equal or > 8.0 3. Lasix 80/40 qd with monitor diuretic response, renal function and electrolytes 4. Completed empiric zosyn course per ID, GI protection 5. Antispasmodic for bladder spasms, bladder scan r/o obstruction
[2018-08-27 14:04] LABS: ANION GAP 5 MMOL/L (8-16); BLOOD UREA NITROGEN 39 mg/dL (7-18); CALCIUM 7.5 mg/dL (8.5-10.1); CHLORIDE 110 mmol/L (98-107); CO2 31 mmol/L (21-32); CREATININE 1.6 mg/dL (0.55-1.3); GLUCOSE,RANDOM 72 mg/dL (74-106); SODIUM 146 mmol/L (136-145)
--- NOTE | 2018-08-27 14:22 | PN ---
Progress Note, Physician Chief Complaint: Sepsis Hematuria Anemia History of Present Illness: NAD in bed Indwelling chamberlain cath +hematuria Anemia stable Seen by Urology s/p cystoscopy Renal fxn improving - Current Medication List Current Medications: Active Medications Allopurinol (Zyloprim -) 100 mg PO DAILY [facility] Last Admin: 08/27/18 11:10 Dose: 100 mg Atorvastatin Calcium (Lipitor -) 20 mg PO HS [facility] Last Admin: 08/26/18 21:55 Dose: 20 mg Diltiazem HCl (Cardizem -) 30 mg PO TID [facility] Furosemide (Lasix -) 80 mg PO DAILY@0600 [facility] Last Admin: 08/27/18 05:51 Dose: 80 mg Furosemide (Lasix -) 40 mg PO DAILY@1400 [facility] Metoprolol Tartrate (Lopressor -) 25 mg PO TID [facility] Last Admin: 08/27/18 05:51 Dose: 25 mg Pantoprazole Sodium (Protonix -) 40 mg PO DAILY [facility] Last Admin: 08/27/18 11:10 Dose: 40 mg - Objective Vital Signs: Vital Signs Temperature 97.9 F 08/27/18 09:47 Pulse Rate 109 H 08/27/18 09:47 Respiratory Rate 18 08/27/18 09:47 Blood Pressure 107/57 L 08/27/18 09:47 O2 Sat by Pulse Oximetry (%) 98 08/26/18 21:00 Constitutional: Yes: Well Nourished, No Distress, Calm Cardiovascular: Yes: Tachycardia, Pulse Irregular Respiratory: Yes: Regular Genitourinary: Yes: Chamberlain Present, Hematuria Musculoskeletal: Yes: Muscle Weakness Extremities: Yes: WNL Edema: Yes Neurological: Yes: Alert, Oriented Psychiatric: Yes: Alert, Oriented Labs: CBC, BMP 08/26/18 09:00 08/27/18 12:40 INR, PTT INR 1.12 (0.83-1.09) H 08/16/18 07:30 Problem List - Problems (1) Afib Assessment/Plan: -ok to restart Eliquis as per cardiology and urology -monitor H/H while on AC -tele monitoring- uncontrolled in 120's consistently at this time -added cardizem to med regimen for rate control. -lopressor to 25 mg po TID -Cardiology on board Code(s): I48.91 - UNSPECIFIED ATRIAL FIBRILLATION Qualifiers: Atrial fibrillation type: chronic Qualified Code(s): I48.2 - Chronic atrial fibrillation (2) Anemia Assessment/Plan: 12/20 to hematuria -Hold eliquis -Hg stable -Hematology consult -received 2 units of PRBC this admission Code(s): D64.9 - ANEMIA, UNSPECIFIED Qualifiers: Anemia type: other cause Other causes of anemia: antineoplastic chemotherapy Qualified Code(s): D64.81 - Anemia due to antineoplastic chemotherapy; T45.1X5A - Adverse effect of antineoplastic and immunosuppressive drugs, initial encounter (3) Chronic kidney disease (CKD) Assessment/Plan: at baseline now -monitor trend -U/S renal/bladder left hydronephrosis -Cystoscopy cancelled today due to AMS, reassess Saturday Code(s): N18.9 - CHRONIC KIDNEY DISEASE, UNSPECIFIED Qualifiers: Chronic kidney disease stage: stage 3 (moderate) Qualified Code(s): N18.3 - Chronic kidney disease, stage 3 (moderate) (4) Chronic lymphocytic leukemia (CLL), B-cell Code(s): C91.10 - CHRONIC LYMPHOCYTIC LEUK OF B-CELL TYPE NOT ACHIEVE REMIS Qualifiers: Leukemia Active/Remission status: in remission Qualified Code(s): C91.11 - Chronic lymphocytic leukemia of B-cell type in remission (5) Hematuria Assessment/Plan: -chamberlain cath -urology consult -UC negative -Had Cystoscopy: Operative Date: 08/25/18 Pre-Operative Diagnosis: Hematuria Operation: Cysto clot evacuation and chamberlain placement Findings: Bladder filled with clots. Active bleeding noted from the prostate Prostate is moderately obstructive. Ureteral orifices normally located with clear efflux Post-Operative Diagnosis: Same as Pre-op Surgeon: Mila Wise S -H/H stable -urine draining pink in color -pt will be discharged when ready with FC Code(s): R31.9 - HEMATURIA, UNSPECIFIED Qualifiers: Hematuria type: gross Qualified Code(s): R31.0 - Gross hematuria (6) Assessment/Plan: -Seen by Psychiatry -alert and oriented x 3, periods of confusion -Remeron 7.5 mg po HS Code(s): F05 - DELIRIUM DUE TO KNOWN PHYSIOLOGICAL CONDITION (7) Metabolic encephalopathy Assessment/Plan: -multifactorial Code(s): G93.41 - METABOLIC ENCEPHALOPATHY (8) Dysphagia Assessment/Plan: -speech consult -diet changed to nectar thicken liquids Code(s): R13.10 - DYSPHAGIA, UNSPECIFIED (9) Abdominal pain Assessment/Plan: -abdominal US ordered Code(s): R10.9 - UNSPECIFIED ABDOMINAL PAIN Qualifiers: Abdominal location: lower abdomen, unspecified Qualified Code(s): R10.30 - Lower abdominal pain, unspecified (10) Bladder spasm Assessment/Plan: -pyridium 100mg tab po tid prn Code(s): N32.89 - OTHER SPECIFIED DISORDERS OF BLADDER Assessment/Plan see problem list physical therapy when ready for discharge will go to [facility], spoke with grandson in agreement with plan
[2018-08-27] MEDS: dilTIAZem HCL 30 MG TABLET (FP) PO SCH ×2 (14:26→22:24)
[2018-08-27] MEDS ORDERED: ACETAMINOPHEN 325 MG TABLET (FP) PO PRN (15:38)
[2018-08-27] MEDS ORDERED: dilTIAZem HCL 25 MG/5 ML - 5 ML VIAL IVPUSH PRN (16:18)
[2018-08-27] MEDS: ACETAMINOPHEN 325 MG TABLET (FP) PO PRN (16:58)
[2018-08-27] MEDS: PHENAZOPYRIDINE HCL 100 MG TABLET (FP) PO PRN (16:58)
[2018-08-27] MEDS: APIXABAN 2.5 MG TABLET PO SCH (22:24)
[2018-08-27] MEDS: ATORVASTATIN CA 20 MG TABLET (FP) PO SCH (22:24)
[2018-08-28] MEDS: dilTIAZem HCL 30 MG TABLET (FP) PO SCH ×5 (06:45→22:49)
[2018-08-28] MEDS: METOPROLOL TARTRATE 25 MG TABLET (FP) PO SCH ×3 (06:46→22:49)
[2018-08-28] MEDS: FUROSEMIDE 40 MG TABLET (FP) PO SCH ×2 (06:46→14:54)
--- NOTE | 2018-08-28 07:27 | PN ---
Mental Health Exam - Mental Status Exam Alert and Oriented to: Place, Person Cognitive Function: Grossly Intact Patient Appearance: Well Groomed Mood: Depressed, Withdrawn, Apprehensive Affect: Flat, Constricted Patient Behavior: Dependent, Passive, Suspicious, Cooperative Speech Pattern: Clear Voice Loudness: Mildly Soft/Quiet Thought Process: Intact Thought Disorder: Not Present Hallucinations: None Suicidal Ideation: None Homicidal Ideation: None Insight/Judgement: Poor Sleep: Poorly ("i stay up watching tv". ) Appetite: Fair Muscle strength/Tone: Normal Gait/Station: Deferred
--- NOTE | 2018-08-28 07:35 | PN ---
Problem List - Problems (1) [facility] Code(s): F05 - DELIRIUM DUE TO KNOWN PHYSIOLOGICAL CONDITION
[2018-08-28 07:43] LABS: ALBUMIN 1.3 g/dl (3.4-5.0); ALK PHOS 70 U/L (45-117); ANION GAP 4 MMOL/L (8-16); BILIRUBIN,TOTAL 0.4 mg/dL (0.2-1); BLOOD UREA NITROGEN 38 mg/dL (7-18); CALCIUM 7.3 mg/dL (8.5-10.1); CHLORIDE 112 mmol/L (98-107); CO2 31 mmol/L (21-32); CREATININE 1.5 mg/dL (0.55-1.3); GLUCOSE,RANDOM 80 mg/dL (74-106); POTASSIUM 4.1 mmol/L (3.5-5.1); SGOT/AST 10 U/L (15-37); SGPT/ALT 10 U/L (13-61); SODIUM 147 mmol/L (136-145); TOT PROT 4.4 g/dl (6.4-8.2)
--- NOTE | 2018-08-28 09:29 | PN ---
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 Pt reported not feeling well for few days prior to admission. ED note indicated he had been feeling weak and lightheaded for the past week and has had multiple times where he needed to sit down to rest. On day prior to admission, he had an episode of passing out while standing after feeling lightheaded and weak. Unclear how long he had LOC. Of note, pt was evaluated here in the ED on 08/08 for hematuria and signed out AMA when admission was recommended due to low BP. I was consulted for altered mental status. CT head completed and reviewed and no acute changes. Degenerative subluxation of C7 in relation to T1, C6 on C spine CT. Completed repeat CT head last saturday, reviewed and no acute changes. Completed urology procedure 08/25, cysto clot evacuation per notes reviewed. Knows he's in the hospital, can tell me it's August 2018. Can tell me name of President. Today, was able to tell he's at [facility] today. Inquiring about procedure. Pleasant and interactive. Active Medications Acetaminophen (Tylenol -) 650 mg PO Q4H PRN PRN Reason: PAIN Last Admin: 08/27/18 16:58 Dose: 650 mg Acetaminophen (Tylenol -) 650 mg PO Q4H PRN PRN Reason: FEVER Allopurinol (Zyloprim -) 100 mg PO DAILY [facility] Last Admin: 08/27/18 11:10 Dose: 100 mg Apixaban (Eliquis -) 2.5 mg PO BID [facility] Last Admin: 08/27/18 22:24 Dose: 2.5 mg Atorvastatin Calcium (Lipitor -) 20 mg PO HS [facility] Last Admin: 08/27/18 22:24 Dose: 20 mg Diltiazem HCl (Cardizem -) 30 mg PO TID [facility] Last Admin: 08/28/18 06:45 Dose: 30 mg Diltiazem HCl (Cardizem Injection -) 10 mg IVPUSH Q4H PRN PRN Reason: HR <110 BPM Last Admin: 08/27/18 16:58 Dose: 10 mg Furosemide (Lasix -) 80 mg PO DAILY@0600 [facility] Last Admin: 08/28/18 06:46 Dose: Not Given Furosemide (Lasix -) 40 mg PO DAILY@1400 [facility] Last Admin: 08/27/18 14:26 Dose: 40 mg Metoprolol Tartrate (Lopressor -) 25 mg PO TID [facility] Last Admin: 08/28/18 06:46 Dose: 25 mg Pantoprazole Sodium (Protonix -) 40 mg PO DAILY [facility] Last Admin: 08/27/18 11:10 Dose: 40 mg Phenazopyridine HCl (Pyridium -) 100 mg PO TID PRN PRN Reason: bladder spasm Last Admin: 08/27/18 16:58 Dose: 100 mg PHYSICAL EXAMINATION Vital Signs Temperature 97.4 F L 08/28/18 05:00 Pulse Rate 120 H 08/28/18 05:00 Respiratory Rate 18 08/28/18 05:00 Blood Pressure 94/41 L 08/28/18 05:00 O2 Sat by Pulse Oximetry (%) 98 08/27/18 21:00 GENERAL: Awake, alert, in no acute distress. HEAD: ecchymosis and abrasion left forehead, hematoma around left eye. abrasion below left eye EYES: Pupils equal, round and reactive to light, extraocular movements intact, sclera anicteric, conjunctiva clear. No lid lag. EARS, NOSE, THROAT: Ears normal, nares patent, oropharynx clear without exudates. Moist mucous membranes. NECK: Normal range of motion, supple without lymphadenopathy, JVD, or masses. LUNGS: Breath sounds equal, clear to auscultation bilaterally. No wheezes, and no crackles. No accessory muscle use. HEART: Regular rate and rhythm, normal S1 and S2 without murmur, rub or gallop. ABDOMEN: Soft, nontender, not distended, normoactive bowel sounds, no guarding, no rebound, no masses. No hepatomegaly or splenomegaly. chamberlain draining bloody urine MUSCULOSKELETAL: Normal range of motion at all joints. No bony deformities or tenderness. No CVA tenderness. UPPER EXTREMITIES: 2+ pulses, warm, well-perfused. No cyanosis. No clubbing. No peripheral edema. LOWER EXTREMITIES: 2+ pulses, warm, well-perfused. No calf tenderness. No peripheral edema. chronic vascular skin changes B/L LE: darkened, hypertrophic skin. NEUROLOGICAL: Awake, alert, dysarthric, sensory intact, moving extremities grossly, gait deferred PSYCHIATRIC: Cooperative. Good eye contact. Appropriate mood and affect. SKIN: Warm, dry, normal turgor, no rashes or lesions noted, normal capillary refill. CBCD WBC 10.2 K/mm3 (4.0-10.0) H 08/26/18 09:00 RBC 3.39 M/mm3 (4.00-5.60) L 08/26/18 09:00 Hgb 10.1 GM/dL (11.7-16.9) L 08/26/18 09:00 Hct 31.7 % (35.4-49) L 08/26/18 09:00 MCV 93.4 fl (80-96) 08/26/18 09:00 MCHC 31.8 g/dl (32.0-35.9) L 08/26/18 09:00 RDW 18.7 % (11.9-15.9) H 08/26/18 09:00 Plt Count 114 K/MM3 (134-434) L 08/26/18 09:00 MPV 11.0 fl (7.5-11.1) 08/26/18 09:00 CMP Sodium 147 mmol/L (136-145) H 08/28/18 06:00 Potassium 4.1 mmol/L (3.5-5.1) 08/28/18 06:00 Chloride 112 mmol/L (98-107) H 08/28/18 06:00 Carbon Dioxide 31 mmol/L (21-32) 08/28/18 06:00 Anion Gap 4 MMOL/L (8-16) L 08/28/18 06:00 BUN 38 mg/dL (7-18) H 08/28/18 06:00 Creatinine 1.5 mg/dL (0.55-1.3) H 08/28/18 06:00 Creat Clearance w eGFR 44.27 (>60) 08/28/18 06:00 Calcium 7.3 mg/dL (8.5-10.1) L 08/28/18 06:00 Total Bilirubin 0.4 mg/dL (0.2-1) 08/28/18 06:00 AST 10 U/L (15-37) L 08/28/18 06:00 ALT 10 U/L (13-61) L 08/28/18 06:00 Alkaline Phosphatase 70 U/L (45-117) 08/28/18 06:00 Total Protein 4.4 g/dl (6.4-8.2) L 08/28/18 06:00 Albumin 1.3 g/dl (3.4-5.0) L 08/28/18 06:[address] head Impression. No evidence of acute intracranial hemorrhage, edema, midline shift, mass effect , or skull fracture. No CT evidence of acute territorial infarction. CT c spine Impression. No acute bony abnormalities are seen. Intact odontoid. The predental space is not widened. Multilevel cervical spondylosis. Facet joint arthropathy. Osteoarthritis of uncovertebral joints. 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 Pt reported not feeling well for few days prior to admission. ED note indicated he had been feeling weak and lightheaded for the past week and has had multiple times where he needed to sit down to rest. On day prior to admission, he had an episode of passing out while standing after feeling lightheaded and weak. Unclear how long he had LOC. Of note, pt was evaluated here in the ED on 08/08 for hematuria and signed out AMA when admission was recommended due to low BP. He had a chamberlain catheter in place from home which was draining bloody urine. I was consulted for alerted mental status. Mental status has been stable, more interactive today and able to tell me he's at [facility] Infectious treatment ongoing, no longer on Abx Monitor renal function, optimize Monitor bp, maintain normotensive range Urology follow up, status post clot evacuation Monitor hematuria, H/H, maintain normal range Cards follow up IV/PO hydration DVT ppx
--- NOTE | 2018-08-28 09:46 | PN ---
Progress Note, Physician History of Present Illness: Hematuria clearing after cystoscopy showing bladder filled with clots. Active bleeding noted from the prostate, prostate is moderately obstructive. Ureteral orifices normally located with clear efflux. Sensorium improved to baseline, reports suprapubic discomfort improved on pyridium. Eliquis resumed, HR control improved with addition of Cardizem. - Current Medication List Current Medications: Active Medications Acetaminophen (Tylenol -) 650 mg PO Q4H PRN PRN Reason: PAIN Last Admin: 08/27/18 16:58 Dose: 650 mg Acetaminophen (Tylenol -) 650 mg PO Q4H PRN PRN Reason: FEVER Allopurinol (Zyloprim -) 100 mg PO DAILY [facility] Last Admin: 08/27/18 11:10 Dose: 100 mg Apixaban (Eliquis -) 2.5 mg PO BID [facility] Last Admin: 08/27/18 22:24 Dose: 2.5 mg Atorvastatin Calcium (Lipitor -) 20 mg PO HS [facility] Last Admin: 08/27/18 22:24 Dose: 20 mg Diltiazem HCl (Cardizem -) 30 mg PO TID [facility] Last Admin: 08/28/18 06:45 Dose: 30 mg Diltiazem HCl (Cardizem Injection -) 10 mg IVPUSH Q4H PRN PRN Reason: HR <110 BPM Last Admin: 08/27/18 16:58 Dose: 10 mg Furosemide (Lasix -) 80 mg PO DAILY@0600 [facility] Last Admin: 08/28/18 06:46 Dose: Not Given Furosemide (Lasix -) 40 mg PO DAILY@1400 [facility] Last Admin: 08/27/18 14:26 Dose: 40 mg Metoprolol Tartrate (Lopressor -) 25 mg PO TID [facility] Last Admin: 08/28/18 06:46 Dose: 25 mg Pantoprazole Sodium (Protonix -) 40 mg PO DAILY [facility] Last Admin: 08/27/18 11:10 Dose: 40 mg Phenazopyridine HCl (Pyridium -) 100 mg PO TID PRN PRN Reason: bladder spasm Last Admin: 08/27/18 16:58 Dose: 100 mg - Objective Vital Signs: Vital Signs Temperature 97.4 F L 08/28/18 05:00 Pulse Rate 120 H 08/28/18 05:00 Respiratory Rate 18 08/28/18 05:00 Blood Pressure 94/41 L 08/28/18 05:00 O2 Sat by Pulse Oximetry (%) 98 08/27/18 21:00 Constitutional: Yes: No Distress, Calm, Thin Neck: Yes: Supple Cardiovascular: Yes: Tachycardia, Pulse Irregular Respiratory: Yes: Regular, Diminished, On Nasal O2 Gastrointestinal: Yes: Normal Bowel Sounds, Soft Edema: No Labs: CBC, BMP 08/26/18 09:00 08/28/18 06:00 INR, PTT INR 1.12 (0.83-1.09) H 08/16/18 07:30 - ....Imaging EKG: Report Reviewed (Tele: [facility]) Problem List - Problems (1) Syncope Code(s): R55 - SYNCOPE AND COLLAPSE Qualifiers: Syncope type: vasovagal syncope Qualified Code(s): R55 - Syncope and collapse (2) Acute kidney injury Code(s): N17.9 - ACUTE KIDNEY FAILURE, UNSPECIFIED (3) Anemia due to blood loss, acute Code(s): D62 - ACUTE POSTHEMORRHAGIC ANEMIA (4) Atrial fibrillation with rapid ventricular response Code(s): I48.91 - UNSPECIFIED ATRIAL FIBRILLATION (5) Chronic lymphocytic leukemia (CLL), B-cell Code(s): C91.10 - CHRONIC LYMPHOCYTIC LEUK OF B-CELL TYPE NOT ACHIEVE REMIS Qualifiers: Leukemia Active/Remission status: in remission Qualified Code(s): C91.11 - Chronic lymphocytic leukemia of B-cell type in remission (6) Hyperlipidemia Code(s): E78.5 - HYPERLIPIDEMIA, UNSPECIFIED Qualifiers: Hyperlipidemia type: pure hypercholesterolemia Qualified Code(s): E78.00 - Pure hypercholesterolemia, unspecified; E78.0 - Pure hypercholesterolemia (7) Mesenteric infarction Code(s): K55.069 - ACUTE INFARCTION OF INTESTINE, PART AND EXTENT UNSPECIFIED (8) TIA (transient ischemic attack) Code(s): G45.9 - TRANSIENT CEREBRAL ISCHEMIC ATTACK, UNSPECIFIED Qualifiers: Transient cerebral ischemia type: unspecified Qualified Code(s): G45.9 - Transient cerebral ischemic attack, unspecified (9) Urinary hesitancy Code(s): R39.11 - HESITANCY OF MICTURITION (10) Weakness due to cerebrovascular accident (CVA) Code(s): I63.9 - CEREBRAL INFARCTION, UNSPECIFIED; R53.1 - WEAKNESS (11) Acute on chronic diastolic heart failure Code(s): I50.33 - ACUTE ON CHRONIC DIASTOLIC (CONGESTIVE) HEART FAILURE Assessment/Plan Echo: 01/23/2018 Normal biventricular size and fxn, mild-mod TR, mild , mod LAE, mild [place] 1. Post op day #3 post cysto clot evacuation and chamberlain placement, for persistent hematuria 2. Syncope in setting of anemia and intravascular volume depletion from overdiuresis 3. 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 CAD angina pectoris, stable 5. Acute on chronic diastolic heart failure 6. Persistent atrial fibrillation with RVR [id number] score of 6 on A/C now off DOAC's/Eliquis 7. History of CVA/TIA 8. HTN 9. Hypercholesterolemia 10. 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 History of recurrent diverticular bleed 12. Acute on CKD (pre-renal) referable to volume depletion from overdiuresis improving, chronic mild-moderate left hydronephrosis 13. 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 Resumed Eliquis 2.5 bid as hematuria resolved, continue Metoprolol 25 tid and increase cardizem 30 qid, Lipitor 20 qhs for rate-control 2. Transfuse to maintain Hgb equal or > 8.0 3. Lasix 80/40 qd with monitor diuretic response, renal function and electrolytes 4. Completed empiric zosyn course per ID, GI protection 5. Antispasmodic for bladder spasms, bladder scan r/o obstruction
[2018-08-28 09:59] LABS: BASO % 0.4 % (0-2.0); EOS % 0.2 % (0-4.5); HEMATOCRIT 26.6 % (35.4-49); HEMOGLOBIN 8.5 GM/dL (11.7-16.9); LYMPH % 36.8 % (8-40); MCH 30.3 pg (25.7-33.7); MCHC 32.1 g/dl (32.0-35.9); MEAN CELL VOLUME 94.3 fl (80-96); MONO % 5.8 % (3.8-10.2); NEUT % 56.8 % (42.8-82.8); PLATELET COUNT 100 K/MM3 (134-434); RBC 2.82 M/mm3 (4.00-5.60); RDW 18.3 % (11.9-15.9); WHITE BLOOD COUNT 6.8 K/mm3 (4.0-10.0)
--- NOTE | 2018-08-28 11:09 | PN ---
Progress Note, Physician Chief Complaint: Sepsis Hematuria Anemia History of Present Illness: NAD, very alert, oriented x 3 in bed, Mirtha Barraza at bedside Indwelling chamberlain cath-light pink urine Seen by Urology s/p cystoscopy Renal fxn improving Had U/S abdomen- awaiting results Drop in Hgb- repeat again later in the afternoon Eliquis restarted last evening Pt at high risk for stroke - Current Medication List Current Medications: Active Medications Acetaminophen (Tylenol -) 650 mg PO Q4H PRN PRN Reason: PAIN Last Admin: 08/27/18 16:58 Dose: 650 mg Acetaminophen (Tylenol -) 650 mg PO Q4H PRN PRN Reason: FEVER Allopurinol (Zyloprim -) 100 mg PO DAILY [facility] Last Admin: 08/27/18 11:10 Dose: 100 mg Apixaban (Eliquis -) 2.5 mg PO BID [facility] Last Admin: 08/27/18 22:24 Dose: 2.5 mg Atorvastatin Calcium (Lipitor -) 20 mg PO HS [facility] Last Admin: 08/27/18 22:24 Dose: 20 mg Diltiazem HCl (Cardizem Injection -) 10 mg IVPUSH Q4H PRN PRN Reason: HR <110 BPM Last Admin: 08/27/18 16:58 Dose: 10 mg Diltiazem HCl (Cardizem -) 30 mg PO QID [facility] Furosemide (Lasix -) 80 mg PO DAILY@0600 [facility] Last Admin: 08/28/18 06:46 Dose: Not Given Furosemide (Lasix -) 40 mg PO DAILY@1400 [facility] Last Admin: 08/27/18 14:26 Dose: 40 mg Metoprolol Tartrate (Lopressor -) 25 mg PO TID [facility] Last Admin: 08/28/18 06:46 Dose: 25 mg Pantoprazole Sodium (Protonix -) 40 mg PO DAILY [facility] Last Admin: 08/27/18 11:10 Dose: 40 mg Phenazopyridine HCl (Pyridium -) 100 mg PO TID PRN PRN Reason: bladder spasm Last Admin: 08/27/18 16:58 Dose: 100 mg - Objective Vital Signs: Vital Signs Temperature 97.9 F 08/28/18 10:00 Pulse Rate 107 H 08/28/18 10:00 Respiratory Rate 18 08/28/18 10:00 Blood Pressure 93/55 L 08/28/18 10:00 O2 Sat by Pulse Oximetry (%) 98 08/27/18 21:00 Constitutional: Yes: Well Nourished, No Distress, Calm Cardiovascular: Yes: Tachycardia, Pulse Irregular, Murmur (Grade IV/) Respiratory: Yes: Regular Gastrointestinal: Yes: Normal Bowel Sounds, Soft, Tenderness (diffuse) Musculoskeletal: Yes: Muscle Weakness Extremities: Yes: WNL Edema: No Peripheral Pulses WNL: Yes Neurological: Yes: Alert, Oriented Psychiatric: Yes: Alert, Oriented Labs: CBC, BMP 08/28/18 06:00 08/28/18 06:00 INR, PTT INR 1.12 (0.83-1.09) H 08/16/18 07:30 Problem List - Problems (1) Afib Assessment/Plan: -Hold Eliquis, repeat CBC in afternoon -tele monitoring- uncontrolled afib- rate improved, still consistently above 110 -Cardizem adjusted to 30 mg QID to med regimen for rate control. -lopressor to 25 mg po TID -Cardiology on board Code(s): I48.91 - UNSPECIFIED ATRIAL FIBRILLATION Qualifiers: Atrial fibrillation type: chronic Qualified Code(s): I48.2 - Chronic atrial fibrillation (2) Anemia Assessment/Plan: 12/20 to hematuria -Hold eliquis -repeat CBC in afternoon -Hematology consult -Transfuse if Hg <7.0 Code(s): D64.9 - ANEMIA, UNSPECIFIED Qualifiers: Anemia type: other cause Other causes of anemia: antineoplastic chemotherapy Qualified Code(s): D64.81 - Anemia due to antineoplastic chemotherapy; T45.1X5A - Adverse effect of antineoplastic and immunosuppressive drugs, initial encounter (3) Chronic kidney disease (CKD) Assessment/Plan: at baseline now -monitor trend -U/S renal/bladder left hydronephrosis -s/p cystoscopy Code(s): N18.9 - CHRONIC KIDNEY DISEASE, UNSPECIFIED Qualifiers: Chronic kidney disease stage: stage 3 (moderate) Qualified Code(s): N18.3 - Chronic kidney disease, stage 3 (moderate) (4) Chronic lymphocytic leukemia (CLL), B-cell Code(s): C91.10 - CHRONIC LYMPHOCYTIC LEUK OF B-CELL TYPE NOT ACHIEVE REMIS Qualifiers: Leukemia Active/Remission status: in remission Qualified Code(s): C91.11 - Chronic lymphocytic leukemia of B-cell type in remission (5) Hematuria Assessment/Plan: -chamberlain cath-light pink urine -urology consult -UC negative -Had Cystoscopy: Operative Date: 08/25/18 Pre-Operative Diagnosis: Hematuria Operation: Cysto clot evacuation and chamberlain placement Findings: Bladder filled with clots. Active bleeding noted from the prostate Prostate is moderately obstructive. Ureteral orifices normally located with clear efflux Post-Operative Diagnosis: Same as Pre-op Surgeon: Mila Wise S -pt will be discharged when ready with FC and if medically stable outpatient, Urology will consider TURS Code(s): R31.9 - HEMATURIA, UNSPECIFIED Qualifiers: Hematuria type: gross Qualified Code(s): R31.0 - Gross hematuria (6) Assessment/Plan: -Seen by Psychiatry -alert and oriented x 3, periods of confusion -Remeron 7.5 mg po HS Code(s): F05 - DELIRIUM DUE TO KNOWN PHYSIOLOGICAL CONDITION (7) Metabolic encephalopathy Assessment/Plan: -multifactorial -much improved Code(s): G93.41 - METABOLIC ENCEPHALOPATHY (8) Dysphagia Assessment/Plan: -speech consult -diet changed to nectar thicken liquids Code(s): R13.10 - DYSPHAGIA, UNSPECIFIED (9) Abdominal pain Assessment/Plan: -abdominal US done- pending results Code(s): R10.9 - UNSPECIFIED ABDOMINAL PAIN Qualifiers: Abdominal location: lower abdomen, unspecified Qualified Code(s): R10.30 - Lower abdominal pain, unspecified (10) Bladder spasm Assessment/Plan: -pyridium 100mg tab po tid prn Code(s): N32.89 - OTHER SPECIFIED DISORDERS OF BLADDER Assessment/Plan see problem list physical therapy when ready for discharge will go to [facility], spoke with grandson in agreement with plan
--- NOTE | 2018-08-28 11:16 | CONSULT ---
Admitting History and Physical - Primary Care Physician PCP: Julia Woods - Admission History of Present Illness: Pt referred for a swallowing evaluation, noted to be coughing mealtime. Per grandson, pt seen by ENT 2 months ago, because of "black phlegm" which family thought was blood. It turned out to be upper/permanent dentures that were rotting and removed. However, at that time, ENT noted a weak unilateral vocal cord. The grandson thought it was on right. Pt reports intermittent coughing while drinking. History Source: Patient, Family Member, Medical Record Limitations to Obtaining History: No Limitations - Past Medical History RELIGION PROFESSOR: No: Alzheimer's, CVA, Dementia, Migraine, Multiple Sclerosis, Peripheral Neuropathy, Parkinson's, Seizure, Syncope, TIA, Vertigo, Other Cardiovascular: Yes: AFIB (on Eliquis, currently held), HTN, Other (BLE edema) Pulmonary: Yes: Pneumonia Gastrointestinal: Yes: Diverticulosis, GI Bleed (diverticular bleeding), Other ( HEMORRHOIDS, antral and gastric body erosions, embolic distal ileal ischemia ; right ischemic colitis) Hepatobiliary: Yes: Other (developing abnormalities of LFT's -progressive). No : Cirrhosis, Cholelithiasis, Cholecystitis, Choledocholithiasis, Hepatitis A, Hepatitis B, Hepatitis C Renal/: Yes: Renal Inusuff, BPH, Hematuria, Other (consideration for prostate procedure mentioned by ) Heme/Onc: Yes: Anemia, Cancer (non-Hodgkins lymphoma dx ~5y ago, recently on Imbruvica currently held) Infectious Disease: Yes: Other (gram negative bacteremia, and gram negatives in urine). 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 History of Recent Travel: No History - Admission Reason For Visit: SEPSIS - Diagnostics X-ray: Report Reviewed CT Scan: Report Reviewed - General Mental Status: Alert and Oriented, Awake and Alert, Able to Follow Commands, Forgetful Attention: Intact Ability to Follow Directions: Good Head/Neck Control: WFL - Hearing Hearing: Functional Hearing Aide: No With Patient: No Speech Evaluation - Communication Primary Language: KOREAN Communication: Yes: Within Normal Limits Oral Expression Ability: Yes: No Impairment - Speech Production Able to Make Needs Known: Yes: WNL Intelligibility: Yes: WNL - Speech Characteristics Voice Loudness: Normal Voice Pitch: Yes: Normal Voice Phonatory-based Quality: Yes: Normal (slight dysphonia. Euphonic upon forced phonation) Speech Pattern: Normal Speech Clarity: < 100% Nasal Resonance: Normal - Language/Auditory Comprehension Follows: Yes: 2 Stage Simple Commands - Language/Verbal Expression Able to Respond to Simple Queries: Yes: WNL Able to Communicate Wants and Needs: Yes: WNL Functional Communication Status: Yes: WNL - Swallow Evaluation/Bedside Assessment Current Nutritional Intake: Regular, Meigs Textured Liquids Oral Secretions: Yes: WFL Dentition: Yes: Edentulous (edentulous uppers. Few lower anterior teeth), Missing Teeth (many) Facial Symmetry at Rest: Symmetrical Facial Symmetry on Retraction: Symmetrical Facial Movement: Controlled Sensation: Normal Against Resistance Opening: Normal Against Resistance Closing: Normal Pucker Lips: Normal Smile: Normal Lingual Movement: Normal, Symmetric Lingual Speed of Movement: Normal Lingual Movement Strgth Against Opposition: Normal Lingual Movement Characteristics: Normal Velopharyngeal Movement: Normal Laryngeal Movement: Able to Palpate Rate of Intake: WFL Bolus Size: Small (careful) Labial Seal: WFL Chewing: Impaired (poor dentition) A-P Transit: WFL Pocketing: None Coughing/Throat Clear: Yes (thin. Intermittent) Change in Voice: No Recommendations - Speech Evaluation, Impression/Plan Impression: Reported Right? 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 Impaired mastication - Dysphagia Impressions/Plan Swallowing Skills: Impaired Dysphagia Impressions: Mild Impairment, Ongoing Evaluation, Suspect Aspiration *Silent aspiration: cannot be R/O at bedside Dysphagia Treatment Plan: Small Bites, Chin Tuck/Down, Safe Rate, 1/2 tsp. at a time, OOB for meals, OOB for 1 h. after meals Recommendations: Modified Barium Swallow, Other (Voice/swallowing tx upon d/c to improve vocal cord function, glottic closure,airway protection) - Recommendations Diet Consistency: Other (Soft, easy to chew foods with chopped meats/extra gravy ) Liquids: Meigs Thick (pt prefers OJ) Supplement: Magic Cup, Other (ensure compact)
[2018-08-28] MEDS: PANTOPRAZOLE 40 MG TABLET (FP) PO SCH (12:06)
[2018-08-28] MEDS: ALLOPURINOL 100 MG TABLET (FP) PO SCH (12:06)
[2018-08-28] MEDS: APIXABAN 2.5 MG TABLET PO SCH (12:06)
[2018-08-28] MEDS: ACETAMINOPHEN 325 MG TABLET (FP) PO PRN (18:40)
[2018-08-28] MEDS: PHENAZOPYRIDINE HCL 100 MG TABLET (FP) PO PRN (18:40)
--- NOTE | 2018-08-28 20:57 | PN ---
Mental Health Exam - Mental Status Exam Alert and Oriented to: Place, Person Cognitive Function: Impaired Patient Appearance: Well Groomed Mood: Apprehensive, Hopeful Affect: Flat Patient Behavior: Cooperative (SPOKE ELEQUENTLY TO DIGESTER HAND IN [place]. ) Speech Pattern: Clear Voice Loudness: Mildly Loud Thought Process: Intact Thought Disorder: Not Present Hallucinations: None Suicidal Ideation: None Homicidal Ideation: None Insight/Judgement: Impaired Sleep: Well (' SLEEP WELL") Appetite: Fair Muscle strength/Tone: Mild Hypotonicity Gait/Station: Deferred (I WALK WITH A WALKER, I DONT FALL...)
[2018-08-28] MEDS: ATORVASTATIN CA 20 MG TABLET (FP) PO SCH (22:49)
[2018-08-29] MEDS: FUROSEMIDE 40 MG TABLET (FP) PO SCH ×2 (06:10→14:01)
[2018-08-29] MEDS: METOPROLOL TARTRATE 25 MG TABLET (FP) PO SCH ×3 (06:10→21:50)
[2018-08-29 07:44] LABS: BASO % 0.3 % (0-2.0); EOS % 0.4 % (0-4.5); HEMATOCRIT 27.3 % (35.4-49); HEMOGLOBIN 8.9 GM/dL (11.7-16.9); LYMPH % 25.4 % (8-40); MCH 30.3 pg (25.7-33.7); MCHC 32.4 g/dl (32.0-35.9); MEAN CELL VOLUME 93.4 fl (80-96); MEAN PLT VOLUME 10.5 fl (7.5-11.1); MONO % 4.2 % (3.8-10.2); NEUT % 69.7 % (42.8-82.8); PLATELET COUNT 103 K/MM3 (134-434); RBC 2.93 M/mm3 (4.00-5.60); WHITE BLOOD COUNT 9.2 K/mm3 (4.0-10.0)
[2018-08-29 08:10] LABS: ALBUMIN 1.4 g/dl (3.4-5.0); ALK PHOS 81 U/L (45-117); ANION GAP 5 MMOL/L (8-16); BILIRUBIN,TOTAL 0.7 mg/dL (0.2-1); BLOOD UREA NITROGEN 40 mg/dL (7-18); CALCIUM 7.6 mg/dL (8.5-10.1); CHLORIDE 113 mmol/L (98-107); CO2 31 mmol/L (21-32); CREATININE 1.4 mg/dL (0.55-1.3); GLUCOSE,RANDOM 87 mg/dL (74-106); POTASSIUM 4.4 mmol/L (3.5-5.1); SGOT/AST 20 U/L (15-37); SGPT/ALT 11 U/L (13-61); SODIUM 149 mmol/L (136-145); TOT PROT 4.8 g/dl (6.4-8.2)
--- NOTE | 2018-08-29 09:11 | PN ---
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 Pt reported not feeling well for few days prior to admission. ED note indicated he had been feeling weak and lightheaded for the past week and has had multiple times where he needed to sit down to rest. On day prior to admission, he had an episode of passing out while standing after feeling lightheaded and weak. Unclear how long he had LOC. Of note, pt was evaluated here in the ED on 08/08 for hematuria and signed out AMA when admission was recommended due to low BP. I was consulted for altered mental status. CT head completed and reviewed and no acute changes. Degenerative subluxation of C7 in relation to T1, C6 on C spine CT. Completed repeat CT head last saturday, reviewed and no acute changes. Completed urology procedure 08/25, cysto clot evacuation per notes reviewed. Knows he's in the hospital, can tell me it's August 2018. Can tell me name of President. Today, was able to tell he's at [facility]. Sitting in chair and comfortable appearing. Active Medications Acetaminophen (Tylenol -) 650 mg PO Q4H PRN PRN Reason: PAIN Last Admin: 08/28/18 18:40 Dose: 650 mg Acetaminophen (Tylenol -) 650 mg PO Q4H PRN PRN Reason: FEVER Allopurinol (Zyloprim -) 100 mg PO DAILY [facility] Last Admin: 08/28/18 12:06 Dose: 100 mg Apixaban (Eliquis -) 2.5 mg PO BID [facility] Last Admin: 08/28/18 12:06 Dose: 2.5 mg Atorvastatin Calcium (Lipitor -) 20 mg PO HS [facility] Last Admin: 08/28/18 22:49 Dose: 20 mg Diltiazem HCl (Cardizem Injection -) 10 mg IVPUSH Q4H PRN PRN Reason: HR <110 BPM Last Admin: 08/27/18 16:58 Dose: 10 mg Diltiazem HCl (Cardizem -) 30 mg PO QID [facility] Last Admin: 08/28/18 22:49 Dose: 30 mg Furosemide (Lasix -) 80 mg PO DAILY@0600 [facility] Last Admin: 08/29/18 06:10 Dose: 80 mg Furosemide (Lasix -) 40 mg PO DAILY@1400 [facility] Last Admin: 08/28/18 14:54 Dose: 40 mg Metoprolol Tartrate (Lopressor -) 25 mg PO TID [facility] Last Admin: 08/29/18 06:10 Dose: 25 mg Pantoprazole Sodium (Protonix -) 40 mg PO DAILY [facility] Last Admin: 08/28/18 12:06 Dose: 40 mg Phenazopyridine HCl (Pyridium -) 100 mg PO TID PRN PRN Reason: bladder spasm Last Admin: 08/28/18 18:40 Dose: 100 mg PHYSICAL EXAMINATION Vital Signs Period Temp Pulse Resp BP Sys/Gerardo Pulse Ox Last 24 Hr 97.8 F-98.8 F 88-116 18-20 93-117/42-71 98-98 GENERAL: Awake, alert, in no acute distress. HEAD: ecchymosis and abrasion left forehead, hematoma around left eye. abrasion below left eye EYES: Pupils equal, round and reactive to light, extraocular movements intact, sclera anicteric, conjunctiva clear. No lid lag. EARS, NOSE, THROAT: Ears normal, nares patent, oropharynx clear without exudates. Moist mucous membranes. NECK: Normal range of motion, supple without lymphadenopathy, JVD, or masses. LUNGS: Breath sounds equal, clear to auscultation bilaterally. No wheezes, and no crackles. No accessory muscle use. HEART: Regular rate and rhythm, normal S1 and S2 without murmur, rub or gallop. ABDOMEN: Soft, nontender, not distended, normoactive bowel sounds, no guarding, no rebound, no masses. No hepatomegaly or splenomegaly. chamberlain draining bloody urine MUSCULOSKELETAL: Normal range of motion at all joints. No bony deformities or tenderness. No CVA tenderness. UPPER EXTREMITIES: 2+ pulses, warm, well-perfused. No cyanosis. No clubbing. No peripheral edema. LOWER EXTREMITIES: 2+ pulses, warm, well-perfused. No calf tenderness. No peripheral edema. chronic vascular skin changes B/L LE: darkened, hypertrophic skin. NEUROLOGICAL: Awake, alert, dysarthric, sensory intact, moving extremities grossly, gait deferred PSYCHIATRIC: Cooperative. Good eye contact. Appropriate mood and affect. SKIN: Warm, dry, normal turgor, no rashes or lesions noted, normal capillary refill. CBCD WBC 9.2 K/mm3 (4.0-10.0) 08/29/18 07:10 RBC 2.93 M/mm3 (4.00-5.60) L 08/29/18 07:10 Hgb 8.9 GM/dL (11.7-16.9) L 08/29/18 07:10 Hct 27.3 % (35.4-49) L 08/29/18 07:10 MCV 93.4 fl (80-96) 08/29/18 07:10 MCHC 32.4 g/dl (32.0-35.9) 08/29/18 07:10 RDW 19.0 % (11.9-15.9) H 08/29/18 07:10 Plt Count 103 K/MM3 (134-434) L 08/29/18 07:10 MPV 10.5 fl (7.5-11.1) 08/29/18 07:10 CMP Sodium 149 mmol/L (136-145) H 08/29/18 07:10 Potassium 4.4 mmol/L (3.5-5.1) 08/29/18 07:10 Chloride 113 mmol/L (98-107) H 08/29/18 07:10 Carbon Dioxide 31 mmol/L (21-32) 08/29/18 07:10 Anion Gap 5 MMOL/L (8-16) L 08/29/18 07:10 BUN 40 mg/dL (7-18) H 08/29/18 07:10 Creatinine 1.4 mg/dL (0.55-1.3) H 08/29/18 07:10 Creat Clearance w eGFR 47.94 (>60) 08/29/18 07:10 Random Glucose 87 mg/dL (74-106) 08/29/18 07:10 Calcium 7.6 mg/dL (8.5-10.1) L 08/29/18 07:10 Total Bilirubin 0.7 mg/dL (0.2-1) 08/29/18 07:10 AST 20 U/L (15-37) 08/29/18 07:10 ALT 11 U/L (13-61) L 08/29/18 07:10 Alkaline Phosphatase 81 U/L (45-117) 08/29/18 07:10 Total Protein 4.8 g/dl (6.4-8.2) L 08/29/18 07:10 Albumin 1.4 g/dl (3.4-5.0) L 08/29/18 07:10 CARDIAC ENZYMES Creatine Kinase 64 IU/L (26-308) 08/15/18 05:30 Troponin I 0.05 ng/ml (0.00-0.05) 08/15/18 05:[address] head Impression. No evidence of acute intracranial hemorrhage, edema, midline shift, mass effect , or skull fracture. No CT evidence of acute territorial infarction. CT c spine Impression. No acute bony abnormalities are seen. Intact odontoid. The predental space is not widened. Multilevel cervical spondylosis. Facet joint arthropathy. Osteoarthritis of uncovertebral joints. 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 Pt reported not feeling well for few days prior to admission. ED note indicated he had been feeling weak and lightheaded for the past week and has had multiple times where he needed to sit down to rest. On day prior to admission, he had an episode of passing out while standing after feeling lightheaded and weak. Unclear how long he had LOC. Of note, pt was evaluated here in the ED on 08/08 for hematuria and signed out AMA when admission was recommended due to low BP. He had a chamberlain catheter in place from home which was draining bloody urine. I was consulted for alerted mental status. Mental status has been stable, more interactive today and able to tell me he's at [facility] Infectious treatment ongoing, no longer on Abx Monitor renal function, optimize Monitor bp, maintain normotensive range Urology follow up, status post clot evacuation Monitor hematuria, H/H, maintain normal range IV/PO hydration DVT ppx Discharge planning
--- NOTE | 2018-08-29 10:15 | PN ---
Progress Note, Physician History of Present Illness: Hematuria clearing after cystoscopy showing bladder filled with clots. Active bleeding noted from the prostate, prostate is moderately obstructive. Ureteral orifices normally located with clear efflux. Sensorium improved to baseline, suprapubic discomfort resolved on pyridium. Eliquis resumed, HR control improved with addition of Cardizem but still not at goal control. - Current Medication List Current Medications: Active Medications Acetaminophen (Tylenol -) 650 mg PO Q4H PRN PRN Reason: PAIN Last Admin: 08/28/18 18:40 Dose: 650 mg Acetaminophen (Tylenol -) 650 mg PO Q4H PRN PRN Reason: FEVER Allopurinol (Zyloprim -) 100 mg PO DAILY [facility] Last Admin: 08/28/18 12:06 Dose: 100 mg Apixaban (Eliquis -) 2.5 mg PO BID [facility] Last Admin: 08/28/18 12:06 Dose: 2.5 mg Atorvastatin Calcium (Lipitor -) 20 mg PO HS [facility] Last Admin: 08/28/18 22:49 Dose: 20 mg Diltiazem HCl (Cardizem Injection -) 10 mg IVPUSH Q4H PRN PRN Reason: HR <110 BPM Last Admin: 08/27/18 16:58 Dose: 10 mg Diltiazem HCl (Cardizem -) 30 mg PO QID [facility] Last Admin: 08/28/18 22:49 Dose: 30 mg Furosemide (Lasix -) 80 mg PO DAILY@0600 [facility] Last Admin: 08/29/18 06:10 Dose: 80 mg Furosemide (Lasix -) 40 mg PO DAILY@1400 [facility] Last Admin: 08/28/18 14:54 Dose: 40 mg Metoprolol Tartrate (Lopressor -) 25 mg PO TID [facility] Last Admin: 08/29/18 06:10 Dose: 25 mg Pantoprazole Sodium (Protonix -) 40 mg PO DAILY [facility] Last Admin: 08/28/18 12:06 Dose: 40 mg Phenazopyridine HCl (Pyridium -) 100 mg PO TID PRN PRN Reason: bladder spasm Last Admin: 08/28/18 18:40 Dose: 100 mg - Objective Vital Signs: Vital Signs Temperature 98.2 F 08/29/18 02:00 Pulse Rate 106 H 08/29/18 06:00 Respiratory Rate 18 08/29/18 06:00 Blood Pressure 106/61 08/29/18 06:00 O2 Sat by Pulse Oximetry (%) 98 08/28/18 21:00 Constitutional: Yes: No Distress, Calm, Thin Neck: Yes: Supple Cardiovascular: Yes: Tachycardia, Pulse Irregular Respiratory: Yes: Regular, Diminished Gastrointestinal: Yes: Normal Bowel Sounds, Soft Genitourinary: Yes: Chamberlain Present Edema: No Labs: CBC, BMP 08/29/18 07:10 08/29/18 07:10 INR, PTT INR 1.12 (0.83-1.09) H 08/16/18 07:30 - ....Imaging Ultrasound: Report Reviewed (No hydro) Problem List - Problems (1) Syncope Code(s): R55 - SYNCOPE AND COLLAPSE Qualifiers: Syncope type: vasovagal syncope Qualified Code(s): R55 - Syncope and collapse (2) Acute kidney injury Code(s): N17.9 - ACUTE KIDNEY FAILURE, UNSPECIFIED (3) Anemia due to blood loss, acute Code(s): D62 - ACUTE POSTHEMORRHAGIC ANEMIA (4) Atrial fibrillation with rapid ventricular response Code(s): I48.91 - UNSPECIFIED ATRIAL FIBRILLATION (5) Chronic lymphocytic leukemia (CLL), B-cell Code(s): C91.10 - CHRONIC LYMPHOCYTIC LEUK OF B-CELL TYPE NOT ACHIEVE REMIS Qualifiers: Leukemia Active/Remission status: in remission Qualified Code(s): C91.11 - Chronic lymphocytic leukemia of B-cell type in remission (6) Hyperlipidemia Code(s): E78.5 - HYPERLIPIDEMIA, UNSPECIFIED Qualifiers: Hyperlipidemia type: pure hypercholesterolemia Qualified Code(s): E78.00 - Pure hypercholesterolemia, unspecified; E78.0 - Pure hypercholesterolemia (7) Mesenteric infarction Code(s): K55.069 - ACUTE INFARCTION OF INTESTINE, PART AND EXTENT UNSPECIFIED (8) TIA (transient ischemic attack) Code(s): G45.9 - TRANSIENT CEREBRAL ISCHEMIC ATTACK, UNSPECIFIED Qualifiers: Transient cerebral ischemia type: unspecified Qualified Code(s): G45.9 - Transient cerebral ischemic attack, unspecified (9) Urinary hesitancy Code(s): R39.11 - HESITANCY OF MICTURITION (10) Weakness due to cerebrovascular accident (CVA) Code(s): I63.9 - CEREBRAL INFARCTION, UNSPECIFIED; R53.1 - WEAKNESS (11) Acute on chronic diastolic heart failure Code(s): I50.33 - ACUTE ON CHRONIC DIASTOLIC (CONGESTIVE) HEART FAILURE Assessment/Plan Echo: 01/23/2018 Normal biventricular size and fxn, mild-mod TR, mild , mod LAE, mild [place] 1. Post op day #3 post cysto clot evacuation and chamberlain placement, for persistent hematuria 2. Syncope in setting of anemia and intravascular volume depletion from overdiuresis 3. 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 CAD angina pectoris, stable 5. Acute on chronic diastolic heart failure 6. Persistent atrial fibrillation with RVR [id number] score of 6 on A/C now off DOAC's/Eliquis 7. History of CVA/TIA 8. HTN 9. Hypercholesterolemia 10. 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 History of recurrent diverticular bleed 12. Acute on CKD (pre-renal) referable to volume depletion from overdiuresis improving, chronic mild-moderate left hydronephrosis 13. 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 Continue Eliquis 2.5 bid as hematuria resolved, continue Metoprolol 25 tid and increase cardizem 180 qd, Lipitor 20 qhs for rate-control 2. Transfuse to maintain Hgb equal or > 8.0 3. Lasix 80/40 qd with monitor diuretic response, renal function and electrolytes 4. Completed empiric zosyn course per ID, GI protection 5. Antispasmodic for bladder spasms
--- NOTE | 2018-08-29 10:59 | PN ---
Progress Note, Physician Chief Complaint: Sepsis Hematuria Anemia History of Present Illness: NAD, very alert, oriented x 3 Indwelling chamberlain cath-light pink urine Seen by Urology s/p cystoscopy Renal fxn improving Had U/S abdomen- unremarakable H/H stable this AM, Eliquis was held last evening Eliquis restarted this AM by Cardiology Pt at high risk for stroke - Current Medication List Current Medications: Active Medications Acetaminophen (Tylenol -) 650 mg PO Q4H PRN PRN Reason: PAIN Last Admin: 08/28/18 18:40 Dose: 650 mg Acetaminophen (Tylenol -) 650 mg PO Q4H PRN PRN Reason: FEVER Allopurinol (Zyloprim -) 100 mg PO DAILY [facility] Last Admin: 08/28/18 12:06 Dose: 100 mg Apixaban (Eliquis -) 2.5 mg PO BID [facility] Last Admin: 08/28/18 12:06 Dose: 2.5 mg Atorvastatin Calcium (Lipitor -) 20 mg PO HS [facility] Last Admin: 08/28/18 22:49 Dose: 20 mg Diltiazem HCl (Cardizem Injection -) 10 mg IVPUSH Q4H PRN PRN Reason: HR <110 BPM Last Admin: 08/27/18 16:58 Dose: 10 mg Diltiazem HCl (Cardizem Cd -) 180 mg PO DAILY [facility] Docusate Sodium (Colace -) 300 mg PO HS [facility] Furosemide (Lasix -) 80 mg PO DAILY@0600 [facility] Last Admin: 08/29/18 06:10 Dose: 80 mg Furosemide (Lasix -) 40 mg PO DAILY@1400 [facility] Last Admin: 08/28/18 14:54 Dose: 40 mg Metoprolol Tartrate (Lopressor -) 25 mg PO TID [facility] Last Admin: 08/29/18 06:10 Dose: 25 mg Pantoprazole Sodium (Protonix -) 40 mg PO DAILY [facility] Last Admin: 08/28/18 12:06 Dose: 40 mg Phenazopyridine HCl (Pyridium -) 100 mg PO TID PRN PRN Reason: bladder spasm Last Admin: 08/28/18 18:40 Dose: 100 mg - Objective Vital Signs: Vital Signs Temperature 98.2 F 08/29/18 02:00 Pulse Rate 106 H 08/29/18 06:00 Respiratory Rate 18 08/29/18 06:00 Blood Pressure 106/61 08/29/18 06:00 O2 Sat by Pulse Oximetry (%) 98 08/28/18 21:00 Constitutional: Yes: No Distress, Calm, Thin Cardiovascular: Yes: Regular Rate and Rhythm Respiratory: Yes: Regular Gastrointestinal: Yes: Normal Bowel Sounds, Soft Genitourinary: Yes: Chamberlain Present Musculoskeletal: Yes: Muscle Weakness Extremities: Yes: WNL Edema: No Peripheral Pulses WNL: Yes Neurological: Yes: Alert, Oriented Psychiatric: Yes: Alert, Oriented Labs: CBC, BMP 08/29/18 07:10 08/29/18 07:10 INR, PTT INR 1.12 (0.83-1.09) H 08/16/18 07:30 Problem List - Problems (1) Afib Assessment/Plan: -Eliquis restarted -Monitor H/H -tele monitoring- uncontrolled afib- rate improved, still consistently above 110 -Cardizem SA D/C'd -Started on Cardizem CD 180 mg po daily -lopressor to 25 mg po TID -Cardiology on board Code(s): I48.91 - UNSPECIFIED ATRIAL FIBRILLATION Qualifiers: Atrial fibrillation type: chronic Qualified Code(s): I48.2 - Chronic atrial fibrillation (2) Anemia Assessment/Plan: 12/20 to hematuria Eliquis restarted -monitor daily labs -Hematology consult -Transfuse if Hg <7.0 Code(s): D64.9 - ANEMIA, UNSPECIFIED Qualifiers: Anemia type: other cause Other causes of anemia: antineoplastic chemotherapy Qualified Code(s): D64.81 - Anemia due to antineoplastic chemotherapy; T45.1X5A - Adverse effect of antineoplastic and immunosuppressive drugs, initial encounter (3) Chronic kidney disease (CKD) Assessment/Plan: at baseline now -monitor trend -U/S renal/bladder left hydronephrosis -s/p cystoscopy Code(s): N18.9 - CHRONIC KIDNEY DISEASE, UNSPECIFIED Qualifiers: Chronic kidney disease stage: stage 3 (moderate) Qualified Code(s): N18.3 - Chronic kidney disease, stage 3 (moderate) (4) Chronic lymphocytic leukemia (CLL), B-cell Code(s): C91.10 - CHRONIC LYMPHOCYTIC LEUK OF B-CELL TYPE NOT ACHIEVE REMIS Qualifiers: Leukemia Active/Remission status: in remission Qualified Code(s): C91.11 - Chronic lymphocytic leukemia of B-cell type in remission (5) Hematuria Assessment/Plan: -chamberlain cath-light pink urine -urology consult -UC negative -Had Cystoscopy: Operative Date: 08/25/18 Pre-Operative Diagnosis: Hematuria Operation: Cysto clot evacuation and chamberlain placement Findings: Bladder filled with clots. Active bleeding noted from the prostate Prostate is moderately obstructive. Ureteral orifices normally located with clear efflux Post-Operative Diagnosis: Same as Pre-op Surgeon: Mila Wise S -pt will be discharged when ready with FC and if medically stable outpatient, Urology will consider TURS Code(s): R31.9 - HEMATURIA, UNSPECIFIED Qualifiers: Hematuria type: gross Qualified Code(s): R31.0 - Gross hematuria (6) Assessment/Plan: -Seen by Psychiatry -alert and oriented x 3, periods of confusion -Remeron 7.5 mg po HS Code(s): F05 - DELIRIUM DUE TO KNOWN PHYSIOLOGICAL CONDITION (7) Metabolic encephalopathy Assessment/Plan: -multifactorial -much improved Code(s): G93.41 - METABOLIC ENCEPHALOPATHY (8) Dysphagia Assessment/Plan: -speech consult -Failed MBS -ENT consult placed -pureed diet with nectar thick liquids -Crush all medication, give with nectar thick liquids -Added Ensure -Keep HOB elevated during and after meals for at least 2 hours Code(s): R13.10 - DYSPHAGIA, UNSPECIFIED (9) Abdominal pain Assessment/Plan: -abdominal US done- unremarkable -On Pantoprazole -Added Colace 300 mg po HS for constipation Code(s): R10.9 - UNSPECIFIED ABDOMINAL PAIN Qualifiers: Abdominal location: lower abdomen, unspecified Qualified Code(s): R10.30 - Lower abdominal pain, unspecified (10) Bladder spasm Assessment/Plan: -pyridium 100mg tab po tid prn Code(s): N32.89 - OTHER SPECIFIED DISORDERS OF BLADDER (11) Hypoalbuminemia Assessment/Plan: -add prosource BID Code(s): E88.09 - OTH DISORDERS OF PLASMA-PROTEIN METABOLISM, NEC Assessment/Plan see problem list Physical therapy Disp: SNF when cleared by Cardiology
[2018-08-29] MEDS: ALLOPURINOL 100 MG TABLET (FP) PO SCH (11:17)
[2018-08-29] MEDS: PANTOPRAZOLE 40 MG TABLET (FP) PO SCH (11:17)
--- NOTE | 2018-08-29 11:27 | PN ---
Progress Note, [employer] - Note Progress Note: MBS reviewed with PNP, nursing, and again with patient. Pt had difficulty with eggs and is receiving nectar thick liquid. Pending otolaryngology to visualize vocal cords. 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 2 months ago on ENT evaluation. REC: THINNED OUT Dys puree/thin liquids. Review compensatory swallowing strategies. Monitor tolerance.
[2018-08-29] MEDS: dilTIAZem HCL 30 MG TABLET (FP) PO SCH (12:05)
[2018-08-29] MEDS: PHENAZOPYRIDINE HCL 100 MG TABLET (FP) PO PRN (14:08)
--- NOTE | 2018-08-29 14:32 | PN ---
Progress Note (short form) - Note Progress Note: Renal follow up for JOON on CKD Pt seen and examined at the bedside awake and alert no acute complaints feels well wants to go to horse race tomorrow Vital Signs Temperature 98.3 F 08/29/18 14:24 Pulse Rate 121 H 08/29/18 14:24 Respiratory Rate 18 08/29/18 14:24 Blood Pressure 101/59 L 08/29/18 14:24 O2 Sat by Pulse Oximetry (%) 98 08/28/18 21:00 Intake & Output 08/26/18 08/27/18 08/28/18 08/29/18 23:59 23:59 23:59 23:59 Intake Total 680 600 200 Output Total 2800 3450 1350 1850 Balance -2120 -2850 -1150 -1850 Weight 64.07 kg NAD confused No LE edema chamberlain with bloody urine CBC, BMP 08/29/18 07:10 08/29/18 07:10 Current Medications Acetaminophen (Tylenol -) 650 mg PO Q4H PRN PRN Reason: PAIN Last Admin: 08/28/18 18:40 Dose: 650 mg Acetaminophen (Tylenol -) 650 mg PO Q4H PRN PRN Reason: FEVER Allopurinol (Zyloprim -) 100 mg PO DAILY [facility] B[facility]S AT [facility] Last Admin: 08/29/18 11:17 Dose: 100 mg Amino Acids (Prosource No Carb Liquid Pkt) 30 ml PO BID@0800,1730 COUNTS INCLUDE 234 BEDS AT THE [facility] Apixaban (Eliquis -) 2.5 mg PO BID COUNT[facility] 234 BEDS AT THE [facility] Last Admin: 08/28/18 12:06 Dose: 2.5 mg Atorvastatin Calcium (Lipitor -) 20 mg PO HS [facility] 234 B[facility]S AT [facility] Last Admin: 08/28/18 22:49 Dose: 20 mg Diltiazem HCl (Cardizem Injection -) 10 mg IVPUSH Q4H PRN PRN Reason: HR <110 BPM Last Admin: 08/27/18 16:58 Dose: 10 mg Diltiazem HCl (Cardizem Cd -) 180 mg PO DAILY [facility] 234 BEDS AT [facility] Last Admin: 08/29/18 11:17 Dose: 180 mg Docusate Sodium (Colace -) 300 mg PO [facility] Furosemide (Lasix -) 80 mg PO DAILY@0600 [facility]S [facility] 234 BEDS AT [facility] Last Admin: 08/29/18 06:10 Dose: 80 mg Furosemide (Lasix -) 40 mg PO DAILY@1400 [facility]S [facility]CLUDE 234 BEDS AT [facility] Last Admin: 08/29/18 14:01 Dose: 40 mg Metoprolol Tartrate (Lopressor -) 25 mg PO TID [facility]S AT [facility] Last Admin: 08/29/18 14:02 Dose: 25 mg Pantoprazole Sodium (Protonix -) 40 mg PO DAILY [facility] 234 [facility]S [facility] Last Admin: 08/29/18 11:17 Dose: 40 mg Phenazopyridine HCl (Pyridium -) 100 mg PO TID PRN PRN Reason: bladder spasm Last Admin: 08/29/18 14:08 Dose: 100 mg 87 year old gentleman known to our service with 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 #Syncope #JOON secondary to volume depletion +/- bladder outlet obstruction #Lactic acidosis (now resolved) #Leukocytosis #Urinary retention with chronic chamberlain #Hx of LE edema #Hematuria #Hypernatremia Renal function now improved and stable Continue Lasix 80/40mg Daily Hematuria resolved H.H stable maintain chamberlain for now discharge planning as per primary Peewee Torres DO
[2018-08-29 14:56] VITALS: BMI 20.2
[2018-08-29] MEDS: AMINO ACIDS/PROTEIN HYDROLYS 30 ML LIQUID.PKT PO SCH (17:27)
--- NOTE | 2018-08-29 19:28 | HOSP ---
Subjective - Review of Symptoms Events since last encounter: At 6:10pm received a call from radiologist Dr. Madden advising that patient has a pneumoperitoneum on CT imaging. Called Dr. Smith and Dr. Soto. Spoke with Dr. Soto who immediately went to see the patient. At 7:20pm advised by Dr. Soto patient wants to speak with his PCP, Dr. West, about treatment options. Dr. Soto left voice and text messages for Dr. West and I said I would try as well. Left text message for Dr. West at 7:27pm stating patient with pneumoperitoneum who wants to speak to Dr. Chapa prior to surgery and that Dr. Soto also need to speak to him. Spoke with Dr. Soto at 8:45pm Advised her I had not heard back from Dr. West. Physical Examination Vital Signs: Vital Signs Temperature 98.3 F 08/29/18 14:24 Pulse Rate 121 H 08/29/18 14:24 Respiratory Rate 18 08/29/18 14:24 Blood Pressure 101/59 L 08/29/18 14:24 O2 Sat by Pulse Oximetry (%) 98 08/28/18 21:00 Labs: CBC, BMP 08/29/18 07:10 08/29/18 07:10
--- NOTE | 2018-08-29 19:30 | CONSULT ---
Consult Consult Specialty:: General Surgery Referred by:: Zuleyma Mesa Reason for Consultation:: pneumoperitoneum - History of Present Illness Chief Complaint: free air in abdomen on chest CT History of Present Illness: 87yoM with multiple medical problems including NHL on Imbruvica and h/o emergent laparotomy with distal ileum resection (1ft) for embolic ischemia 02/02 , anticoagulated for afib (last dose Eliquis yesterday noon), who was admitted almost 2 wks ago after a syncopal fall at home. He has been transfused for anemia, had hematuria requiring cystoscopy with clot evacuation for prostatic bleeding 4d ago, with pre-existing indwelling Resendiz, and has been evaluated for dysphagia and possible aspiration with MBS done yesterday and diet modification. He had CT today of sinuses, neck and chest for dysphagia, and radiology notified his primary team that pneumoperitoneum was noted in the upper abdomen. Surgery was asked to assess urgently. He is seen in bed in his room, nephew at bedside. He complained of some abdominal pain yesterday, which is improved today. He had pureed dinner after the CT within the last few hours. He felt like he just had BM in diaper, and nursing is about to clean him up. He denies N/V, subjective swallowing difficulty, abdominal distention. He is a fair historian, but is forgetful per nursing. - History Source History Provided By: Patient, Family Member (nephew at bedside), Medical Record , Caregiver Limitations to Obtaining History: Poor Historian - Past Medical History Cardio/Vascular: Yes: AFIB (on Eliquis, last dose noon yesterday), HTN, Other ( BLE edema) Pulmonary: Yes: Pneumonia, Other (aspiration) Gastrointestinal: Yes: Diverticulosis, GI Bleed (diverticular bleeding), Other ( hemorrhoids, antral and gastric body erosions, embolic distal ileal ischemia ; right ischemic colitis) Hepatobiliary: Yes: Other (developing abnormalities of LFT's -progressive) Renal/: Yes: Renal Inusuff, BPH, Hematuria, Other (prostatic bleeding) Heme/Onc: Yes: Anemia, Cancer (NHL on Imbruvica) Infectious Disease: Yes: Other (gram negative bacteremia, and gram negatives in urine) Musculoskeletal: Yes: Osteoarthritis Additional Medical History: left inguinal hernia - Past Surgical History Past Surgical History: Yes: Cholecystectomy, Colonoscopy, Upper Endoscopy Additional Surgical History: cystoscopy with clot evacuation, control of prostatic bleeding 4 days ago; resection of 1ft of distal ileum for ischemia (Dr. 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 History of Recent Travel: No Home Medications - Allergies Allergies/Adverse Reactions: Allergies Allergy/AdvReac Type Severity Reaction Status Date / Time warfarin sodium Allergy Severe bleeding Verified 08/14/18 13:30 [From Coumadin] Benzodiazepines AdvReac Verified 08/22/18 16:01 haloperidol [From Haldol] AdvReac Verified 08/22/18 16:01 - Home Medications Home Medications: Ambulatory Orders Atorvastatin Ca [Lipitor] 20 mg PO HS 12/06/16 Furosemide [Lasix] 80 mg PO BID 12/06/16 Melatonin 5 mg PO HS 12/06/16 Metoprolol Succinate [Toprol XL -] 50 mg PO BID #60 tab.sr.24h 01/30/18 Ibrutinib [Imbruvica] 120 mg PO DAILY 06/20/18 Pantoprazole Sodium [Protonix -] 40 mg PO BID #60 tablet.ec 06/27/18 Allopurinol [Zyloprim -] 100 mg PO DAILY 08/08/18 Family Disease History - Family Disease History Family Disease History: Heart Disease: Father (heart attack/stroke at 74), Other : Father, Mother ( 72 of aspiration), Brother (recent stroke in 80s, recovering) Review of Systems Unable to obtain ROS, reason: limited - Review of Systems Constitutional: reports: Weakness. denies: Chills, Fever, Loss of Appetite Eyes: reports: Other (glasses). denies: Recent Change in Vision HENT: denies: Difficult Swallowing (pt denies feeling difficulty), Throat Pain Cardiovascular: reports: Edema. denies: Chest Pain Respiratory: reports: Cough, Other (on NC O2). denies: SOB Gastrointestinal: reports: Abdominal Pain (some yesterday, better today). denies: Bloating, Constipation, Diarrhea, Nausea, Vomiting Genitourinary: reports: Hematuria (not currently), Other (Resendiz in place) Musculoskeletal: denies: Back Pain, Joint Pain Integumentary: denies: Change in Color, Rash Neurological: reports: Dizziness, Unsteady Gait. denies: Headache Hematology/Lymphatic: reports: Easily Bruised Physical Exam Vital Signs: Vital Signs Temperature 98.3 F 08/29/18 14:24 Pulse Rate 121 H 08/29/18 14:24 Respiratory Rate 18 08/29/18 14:24 Blood Pressure 101/59 L 08/29/18 14:24 O2 Sat by Pulse Oximetry (%) 98 08/28/18 21:00 Constitutional: Yes: No Distress, Calm, Thin Eyes: Yes: Conjunctiva Clear, EOM Intact HENT: Yes: Atraumatic, Normocephalic Neck: Yes: Supple, Trachea Midline Cardiovascular: Yes: Tachycardia, Pulse Irregular (irregularly) Respiratory: Yes: Regular, CTA Bilaterally, Diminished (a little at bases), On Nasal O2. No: SOB Gastrointestinal: Yes: Normal Bowel Sounds, Soft, Hernia (left inguinal bulge present), Tenderness (mild upper quadrants, no jessica/guarding), Other (healed midline scar). No: Distention (minimal if any; tympanic to percussion), Tenderness, Epigastrium (minimal if any), Tenderness, Rebound ...Rectal Exam: Yes: Deferred, Other (nurses just cleaned - small smear of soft brown stool in diaper, no actual BM) Renal/: Yes: Resendiz Present (dark yellow urine). No: Hematuria Musculoskeletal: No: Joint Stiffness, Joint Swelling Extremities: No: Cool, Cyanosis Edema: Yes Edema: LUE: 2+, RUE: 1+, LLE: 1+, RLE: 1+ Peripheral Pulses WNL: Yes (present) Integumentary: Yes: Bruising (scattered ecchymoses), Skin Tear (with adaptic on arms). No: Jaundice, Rash Neurological: Yes: Alert, Oriented (mostly - to person, place, but forgetful) Psychiatric: Yes: Alert. No: Agitated Labs: CBC, BMP 08/29/18 07:10 08/29/18 07:10 CMP Sodium 149 mmol/L (136-145) H 08/29/18 07:10 Potassium 4.4 mmol/L (3.5-5.1) 08/29/18 07:10 Chloride 113 mmol/L (98-107) H 08/29/18 07:10 Carbon Dioxide 31 mmol/L (21-32) 08/29/18 07:10 Anion Gap 5 MMOL/L (8-16) L 08/29/18 07:10 BUN 40 mg/dL (7-18) H 08/29/18 07:10 Creatinine 1.4 mg/dL (0.55-1.3) H 08/29/18 07:10 Creat Clearance w eGFR 47.94 (>60) 08/29/18 07:10 POC Glucometer 118 UNITS (80-120) 08/27/18 11:42 Random Glucose 87 mg/dL (74-106) 08/29/18 07:10 Lactic Acid 1.6 mmol/L (0.4-2.0) 08/14/18 22:30 Uric Acid 4.8 mg/dL (2.6-7.2) 08/24/18 06:00 Calcium 7.6 mg/dL (8.5-10.1) L 08/29/18 07:10 Phosphorus 3.9 mg/dL (2.5-4.9) 08/24/18 06:00 Magnesium 2.1 mg/dL (1.8-2.4) 08/24/18 06:00 Total Bilirubin 0.7 mg/dL (0.2-1) 08/29/18 07:10 AST 20 U/L (15-37) 08/29/18 07:10 ALT 11 U/L (13-61) L 08/29/18 07:10 Alkaline Phosphatase 81 U/L (45-117) 08/29/18 07:10 LD Total 256 U/L (87-246) H 08/24/18 06:00 Creatine Kinase 64 IU/L (26-308) 08/15/18 05:30 Troponin I 0.05 ng/ml (0.00-0.05) 08/15/18 05:30 Total Protein 4.8 g/dl (6.4-8.2) L 08/29/18 07:10 Albumin 1.4 g/dl (3.4-5.0) L 08/29/18 07:10 INR, PTT INR 1.12 (0.83-1.09) H 08/16/18 07:30 Urine Test Results Urine Color Red 08/14/18 14:56 Urine Appearance Cloudy 08/14/18 14:56 Urine pH 6.0 (5.0-8.0) 08/14/18 14:56 Ur Specific [place] 1.013 (1.001-1.035) 08/14/18 14:56 Urine Protein 2+ (NEGATIVE) H 08/14/18 14:56 Urine Glucose (UA) Negative (NEGATIVE) 08/14/18 14:56 Urine Ketones Negative (NEGATIVE) 08/14/18 14:56 Urine Blood 2+ (NEGATIVE) H 08/14/18 14:56 Urine Nitrite Negative (NEGATIVE) 08/14/18 14:56 Urine Bilirubin Negative (<2.0 mg/dL) 08/14/18 14:56 Ur Leukocyte Esterase 1+ (NEGATIVE) H 08/14/18 14:56 albumin very low anemic but Hb stable BUN/Cr noted last coag over a week ago last T&S in late July Imaging - Results Chest X-ray: Report Reviewed, Image Reviewed (last CXR without suggestion of free air) Cat Scan: Pending (abd/pelvis CT pending), Report Reviewed, Image Reviewed ( images personally reviewed from chest CT today - anterior pneumoperitoneum noted in upper abdomen, some residual barium present in SB loops from MBS yesterday; pleural effusions present) Ultrasound: Report Reviewed (no mention of pneumoperitoneum on abd US yesterday) Problem List - Problems (1) Pneumoperitoneum Assessment/Plan: Incidentally noted on chest CT today done for dysphagia Pt HD stable, comfortable, without acute abdomen and tolerated pureed dinner after CT scan Abdominal pain from yesterday is better today, per patient, and he is minimally tender and minimally distended, if at all Pt with multiple high risk factors for surgical morbidity/mortality, including very low albumin, active anticoagulation, not NPO, advanced age, immunocompromise, as well as multiple medical problems Surgical intervention in this particular case may be urgent, but is not emergent Discussed with patient and nephew at bedside what surgery would involve - laparotomy to look for source of pneumoperitoneum; if hole in stomach, could be patched; if hole in small intestine, could be resected and reconnected; if hole in colon, could result in resection and likely colostomy, which could end up being permanent. He is at high risk for complications, and would likely be in ICU postoperatively, and may not survive surgery, even if not right away. If surgery is not done, since we do not know where the perforation is or whether it may have sealed over, he could do well with observation, or he could continue to leak abdominal contents and get sicker, progressing to sepsis and even possibly dying. The patient requests that I speak with Dr. West, and also with Dr. Blank, who did his surgery in January, if possible. His nephew indicates that he is the patient's proxy. I called and left message for Dr. West and am awaiting call back. Also spoke with Zuleyma Mesa NP. Will get CT abd/pelvis without contrast to better characterize intraabdominal process Further recommendations to follow pending above Code(s): K66.8 - OTHER SPECIFIED DISORDERS OF PERITONEUM (2) Hypoalbuminemia Code(s): E88.09 - OTH DISORDERS OF PLASMA-PROTEIN METABOLISM, NEC (3) Chronic anticoagulation Code(s): Z79.01 - SALES SUPPORT TECHNICIAN (CURRENT) USE OF ANTICOAGULANTS (4) Atrial fibrillation with rapid ventricular response Code(s): I48.91 - UNSPECIFIED ATRIAL FIBRILLATION (5) Anemia Code(s): D64.9 - ANEMIA, UNSPECIFIED Qualifiers: Anemia type: other cause Other causes of anemia: antineoplastic chemotherapy Qualified Code(s): D64.81 - Anemia due to antineoplastic chemotherapy; T45.1X5A - Adverse effect of antineoplastic and immunosuppressive drugs, initial encounter (6) NHL (non-Hodgkin's lymphoma) Code(s): C85.90 - NON-HODGKIN LYMPHOMA, UNSPECIFIED, UNSPECIFIED SITE Qualifiers: Non-Hodgkin lymphoma type: B-cell B-cell lymphoma type: unspecified B-cell Lymphoma site: unspecified region Qualified Code(s): C85.10 - Unspecified B -cell lymphoma, unspecified site
[2018-08-29] MEDS ORDERED: DEXTROSE 5%-0.45% SALINE 1,000 ML IV SCH (21:00)
[2018-08-29] MEDS: DEXTROSE 5%-0.45% SALINE 1,000 ML IV SCH (21:43)
[2018-08-29] MEDS: ATORVASTATIN CA 20 MG TABLET (FP) PO SCH (21:49)
[2018-08-29] MEDS: DOCUSATE SODIUM 100 MG CAPSULE (FP) PO SCH (21:50)
[2018-08-30] MEDS: METOPROLOL TARTRATE 25 MG TABLET (FP) PO SCH ×3 (06:13→21:13)
[2018-08-30] MEDS: FUROSEMIDE 40 MG TABLET (FP) PO SCH ×2 (06:13→13:59)
[2018-08-30 08:05] LABS: BASO % 0.5 % (0-2.0); EOS % 2.7 % (0-4.5); HEMATOCRIT 25.9 % (35.4-49); HEMOGLOBIN 8.4 GM/dL (11.7-16.9); LYMPH % 38.7 % (8-40); MCH 30.8 pg (25.7-33.7); MCHC 32.6 g/dl (32.0-35.9); MEAN CELL VOLUME 94.5 fl (80-96); MEAN PLT VOLUME 10.6 fl (7.5-11.1); MONO % 4.9 % (3.8-10.2); NEUT % 53.2 % (42.8-82.8); PLATELET COUNT 123 K/MM3 (134-434); RBC 2.74 M/mm3 (4.00-5.60); RDW 18.6 % (11.9-15.9); WHITE BLOOD COUNT 6.7 K/mm3 (4.0-10.0)
[2018-08-30 08:52] LABS: ALBUMIN 1.4 g/dl (3.4-5.0); ALK PHOS 82 U/L (45-117); ANION GAP 6 MMOL/L (8-16); BILIRUBIN,TOTAL 0.4 mg/dL (0.2-1); BLOOD UREA NITROGEN 39 mg/dL (7-18); CALCIUM 7.6 mg/dL (8.5-10.1); CHLORIDE 108 mmol/L (98-107); CO2 32 mmol/L (21-32); CREATININE 1.4 mg/dL (0.55-1.3); GLUCOSE,RANDOM 82 mg/dL (74-106); POTASSIUM 3.9 mmol/L (3.5-5.1); SGOT/AST 13 U/L (15-37); SGPT/ALT 10 U/L (13-61); SODIUM 146 mmol/L (136-145); TOT PROT 4.8 g/dl (6.4-8.2)
[2018-08-30] MEDS: PANTOPRAZOLE 40 MG TABLET (FP) PO SCH (10:09)
[2018-08-30] MEDS: ALLOPURINOL 100 MG TABLET (FP) PO SCH (10:09)
[2018-08-30] MEDS: AMINO ACIDS/PROTEIN HYDROLYS 30 ML LIQUID.PKT PO SCH ×2 (10:09→17:17)
--- NOTE | 2018-08-30 10:48 | PN ---
Progress Note, Physician History of Present Illness: Above noted and discussed withpt denies abdominal pain - Current Medication List Current Medications: Active Medications Acetaminophen (Tylenol -) 650 mg PO Q4H PRN PRN Reason: PAIN Last Admin: 08/28/18 18:40 Dose: 650 mg Acetaminophen (Tylenol -) 650 mg PO Q4H PRN PRN Reason: FEVER Allopurinol (Zyloprim -) 100 mg PO DAILY [facility] Last Admin: 08/30/18 10:09 Dose: 100 mg Amino Acids (Prosource No Carb Liquid Pkt) 30 ml PO BID@0800,1730 [facility] Last Admin: 08/30/18 10:09 Dose: 30 ml Apixaban (Eliquis -) 2.5 mg PO BID [facility] Last Admin: 08/28/18 12:06 Dose: 2.5 mg Atorvastatin Calcium (Lipitor -) 20 mg PO HS [facility] Last Admin: 08/29/18 21:49 Dose: 20 mg Diltiazem HCl (Cardizem Injection -) 10 mg IVPUSH Q4H PRN PRN Reason: HR <110 BPM Last Admin: 08/27/18 16:58 Dose: 10 mg Diltiazem HCl (Cardizem Cd -) 180 mg PO DAILY [facility] Last Admin: 08/30/18 10:09 Dose: 180 mg Docusate Sodium (Colace -) 300 mg PO HS [facility] Last Admin: 08/29/18 21:50 Dose: Not Given Furosemide (Lasix -) 80 mg PO DAILY@0600 [facility] Last Admin: 08/30/18 06:13 Dose: 80 mg Furosemide (Lasix -) 40 mg PO DAILY@1400 [facility] Last Admin: 08/29/18 14:01 Dose: 40 mg Dextrose/Sodium Chloride (D5-1/2ns -) 1,000 mls @ 42 mls/hr IV ASDIR [facility] Last Admin: 08/29/18 21:43 Dose: 42 mls/hr Metoprolol Tartrate (Lopressor -) 25 mg PO TID [facility] Last Admin: 08/30/18 06:13 Dose: 25 mg Pantoprazole Sodium (Protonix -) 40 mg PO DAILY [facility] Last Admin: 08/30/18 10:09 Dose: 40 mg Phenazopyridine HCl (Pyridium -) 100 mg PO TID PRN PRN Reason: bladder spasm Last Admin: 08/29/18 14:08 Dose: 100 mg - Objective Vital Signs: Vital Signs Temperature 97.6 F 08/30/18 10:00 Pulse Rate 96 H 08/30/18 10:00 Respiratory Rate 19 08/30/18 10:00 Blood Pressure 110/55 L 08/30/18 10:00 O2 Sat by Pulse Oximetry (%) 98 08/29/18 22:00 Cardiovascular: Yes: S1, S2 Respiratory: Yes: Regular, CTA Bilaterally Gastrointestinal: Yes: Normal Bowel Sounds, Soft. No: Tenderness Labs: CBC, BMP 08/30/18 06:00 08/30/18 06:00 INR, PTT INR 1.12 (0.83-1.09) H 08/16/18 07:30 Problem List - Problems (1) Syncope Code(s): R55 - SYNCOPE AND COLLAPSE Qualifiers: Syncope type: vasovagal syncope Qualified Code(s): R55 - Syncope and collapse (2) Sepsis Code(s): A41.9 - SEPSIS, UNSPECIFIED ORGANISM Qualifiers: Sepsis type: Escherichia coli Qualified Code(s): A41.51 - Sepsis due to Escherichia coli [E. coli] (3) Anemia Code(s): D64.9 - ANEMIA, UNSPECIFIED Qualifiers: Anemia type: other cause Other causes of anemia: antineoplastic chemotherapy Qualified Code(s): D64.81 - Anemia due to antineoplastic chemotherapy; T45.1X5A - Adverse effect of antineoplastic and immunosuppressive drugs, initial encounter (4) Afib Code(s): I48.91 - UNSPECIFIED ATRIAL FIBRILLATION Qualifiers: Atrial fibrillation type: chronic Qualified Code(s): I48.2 - Chronic atrial fibrillation (5) Chronic kidney disease (CKD) Code(s): N18.9 - CHRONIC KIDNEY DISEASE, UNSPECIFIED Qualifiers: Chronic kidney disease stage: stage 3 (moderate) Qualified Code(s): N18.3 - Chronic kidney disease, stage 3 (moderate) (6) Chronic lymphocytic leukemia (CLL), B-cell Code(s): C91.10 - CHRONIC LYMPHOCYTIC LEUK OF B-CELL TYPE NOT ACHIEVE REMIS Qualifiers: Leukemia Active/Remission status: in remission Qualified Code(s): C91.11 - Chronic lymphocytic leukemia of B-cell type in remission Assessment/Plan - Problems (1) Afib Assessment/Plan: -Eliquis restarted -Monitor H/H -tele monitoring- uncontrolled afib- rate improved, still consistently above 110 -Cardizem SA D/C'd -Started on Cardizem CD 180 mg po daily -lopressor to 25 mg po TID -Cardiology on board Code(s): I48.91 - UNSPECIFIED ATRIAL FIBRILLATION Qualifiers: Atrial fibrillation type: chronic Qualified Code(s): I48.2 - Chronic atrial fibrillation (2) Anemia Assessment/Plan: 12/20 to hematuria Eliquis restarted -monitor daily labs -Hematology consult -Transfuse if Hg <7.0 Code(s): D64.9 - ANEMIA, UNSPECIFIED Qualifiers: Anemia type: other cause Other causes of anemia: antineoplastic chemotherapy Qualified Code(s): D64.81 - Anemia due to antineoplastic chemotherapy; T45.1X5A - Adverse effect of antineoplastic and immunosuppressive drugs, initial encounter (3) Chronic kidney disease (CKD) Assessment/Plan: at baseline now -monitor trend -U/S renal/bladder left hydronephrosis -s/p cystoscopy Code(s): N18.9 - CHRONIC KIDNEY DISEASE, UNSPECIFIED Qualifiers: Chronic kidney disease stage: stage 3 (moderate) Qualified Code(s): N18.3 - Chronic kidney disease, stage 3 (moderate) (4) Chronic lymphocytic leukemia (CLL), B-cell Code(s): C91.10 - CHRONIC LYMPHOCYTIC LEUK OF B-CELL TYPE NOT ACHIEVE REMIS Qualifiers: Leukemia Active/Remission status: in remission Qualified Code(s): C91.11 - Chronic lymphocytic leukemia of B-cell type in remission (5) Hematuria Assessment/Plan: -chamberlain cath-light pink urine -urology consult -UC negative -Had Cystoscopy: Operative Date: 08/25/18 Pre-Operative Diagnosis: Hematuria Operation: Cysto clot evacuation and chamberlain placement Findings: Bladder filled with clots. Active bleeding noted from the prostate Prostate is moderately obstructive. Ureteral orifices normally located with clear efflux Post-Operative Diagnosis: Same as Pre-op Surgeon: Mila Wise S -pt will be discharged when ready with FC and if medically stable outpatient, Urology will consider TURS Code(s): R31.9 - HEMATURIA, UNSPECIFIED Qualifiers: Hematuria type: gross Qualified Code(s): R31.0 - Gross hematuria (6) Assessment/Plan: -Seen by Psychiatry -alert and oriented x 3, periods of confusion -Remeron 7.5 mg po HS Code(s): F05 - DELIRIUM DUE TO KNOWN PHYSIOLOGICAL CONDITION (7) Metabolic encephalopathy Assessment/Plan: -multifactorial -much improved Code(s): G93.41 - METABOLIC ENCEPHALOPATHY (8) Dysphagia Assessment/Plan: -speech consult -Failed MBS -ENT consult placed -pureed diet with nectar thick liquids -Crush all medication, give with nectar thick liquids -Added Ensure -Keep HOB elevated during and after meals for at least 2 hours Code(s): R13.10 - DYSPHAGIA, UNSPECIFIED (9) Abdominal pain Assessment/Plan: -abdominal US done- unremarkable -On Pantoprazole -Added Colace 300 mg po HS for constipation Code(s): R10.9 - UNSPECIFIED ABDOMINAL PAIN Qualifiers: Abdominal location: lower abdomen, unspecified Qualified Code(s): R10.30 - Lower abdominal pain, unspecified (10) Bladder spasm Assessment/Plan: -pyridium 100mg tab po tid prn Code(s): N32.89 - OTHER SPECIFIED DISORDERS OF BLADDER (11) Hypoalbuminemia Assessment/Plan: -add prosource BID Code(s): E88.09 - OTH DISORDERS OF PLASMA-PROTEIN METABOLISM, NEC (12) Pneumoperitoneum Assessment/Plan: Surgical consult noted and appreciated Incidentally noted on chest CT today done for dysphagia Pt HD stable, comfortable, without acute abdomen and tolerated pureed dinner after CT scan Abdominal pain from yesterday is better today, per patient, and he is minimally tender and minimally distended, if at all Pt with multiple high risk factors for surgical morbidity/mortality, including very low albumin, active anticoagulation, not NPO, advanced age, immunocompromise, as well as multiple medical problems Surgical intervention in this particular case may be urgent, but is not emergent Discussed with patient and nephew at bedside what surgery would involve - laparotomy to look for source of pneumoperitoneum; if hole in stomach, could be patched; if hole in small intestine, could be resected and reconnected; if hole in colon, could result in resection and likely colostomy, which could end up being permanent. He is at high risk for complications, and would likely be in ICU postoperatively, and may not survive surgery, even if not right away. If surgery is not done, since we do not know where the perforation is or whether it may have sealed over, he could do well with observation, or he could continue to leak abdominal contents and get sicker, progressing to sepsis and even possibly dying. The patient requests that I speak with Dr. West, and also with Dr. Blank, who did his surgery in January, if possible. His nephew indicates that he is the patient's proxy. I called and left message for Dr. West and am awaiting call back. Also spoke with Zuleyma Mesa NP. Will get CT abd/pelvis without contrast to better characterize intraabdominal process Further recommendations to follow pending above Code(s): K66.8 - OTHER SPECIFIED DISORDERS OF PERITONEUM
--- NOTE | 2018-08-30 14:00 | PN ---
Progress Note, Physician History of Present Illness: Pt with incidentally noted pneumoperitoneum, small to moderate, stable, and essentially asymptomatic. He is seen and examined in bed, with nephew present. He appears comfortable, and is hungry, asking when he can eat or drink again. He is not sure about having any BMs, which would have been in his diaper. Per nursing, no BM today. No acute events overnight after CT scan. NPO except meds with gentle IVF. - Current Medication List Current Medications: Active Medications Acetaminophen (Tylenol -) 650 mg PO Q4H PRN PRN Reason: PAIN Last Admin: 08/28/18 18:40 Dose: 650 mg Acetaminophen (Tylenol -) 650 mg PO Q4H PRN PRN Reason: FEVER Allopurinol (Zyloprim -) 100 mg PO DAILY [facility] Last Admin: 08/30/18 10:09 Dose: 100 mg Amino Acids (Prosource No Carb Liquid Pkt) 30 ml PO BID@0800,1730 [facility] Last Admin: 08/30/18 10:09 Dose: 30 ml Apixaban (Eliquis -) 2.5 mg PO BID [facility] Last Admin: 08/28/18 12:06 Dose: 2.5 mg Atorvastatin Calcium (Lipitor -) 20 mg PO HS [facility] Last Admin: 08/29/18 21:49 Dose: 20 mg Diltiazem HCl (Cardizem Injection -) 10 mg IVPUSH Q4H PRN PRN Reason: HR <110 BPM Last Admin: 08/27/18 16:58 Dose: 10 mg Diltiazem HCl (Cardizem Cd -) 180 mg PO DAILY [facility] Last Admin: 08/30/18 10:09 Dose: 180 mg Docusate Sodium (Colace -) 300 mg PO HS [facility] Last Admin: 08/29/18 21:50 Dose: Not Given Furosemide (Lasix -) 80 mg PO DAILY@0600 [facility] Last Admin: 08/30/18 06:13 Dose: 80 mg Furosemide (Lasix -) 40 mg PO DAILY@1400 [facility] Last Admin: 08/30/18 13:59 Dose: 40 mg Dextrose/Sodium Chloride (D5-1/2ns -) 1,000 mls @ 42 mls/hr IV ASDIR [facility] Last Admin: 08/29/18 21:43 Dose: 42 mls/hr Metoprolol Tartrate (Lopressor -) 25 mg PO TID [facility] Last Admin: 08/30/18 13:59 Dose: 25 mg Pantoprazole Sodium (Protonix -) 40 mg PO DAILY [facility] Last Admin: 08/30/18 10:09 Dose: 40 mg Phenazopyridine HCl (Pyridium -) 100 mg PO TID PRN PRN Reason: bladder spasm Last Admin: 08/29/18 14:08 Dose: 100 mg - Objective Vital Signs: Vital Signs Temperature 97.6 F 08/30/18 10:00 Pulse Rate 96 H 08/30/18 10:00 Respiratory Rate 19 08/30/18 10:00 Blood Pressure 110/55 L 08/30/18 10:00 O2 Sat by Pulse Oximetry (%) 97 08/30/18 09:00 Constitutional: Yes: No Distress, Calm, Thin Eyes: Yes: Conjunctiva Clear, EOM Intact HENT: Yes: Atraumatic, Normocephalic Respiratory: Yes: On Nasal O2. No: SOB Gastrointestinal: Yes: Soft, Distention (minimal - no increase), Tenderness ( minimal upper abd). No: Tenderness, Rebound, Vomiting ...Rectal Exam: Yes: Deferred Genitourinary: Yes: Resendiz Present Extremities: No: Cool, Cyanosis Integumentary: Yes: Skin Tear (with adaptic on arms). No: Jaundice, Rash Neurological: Yes: Alert, Oriented (but forgetful) Labs: CBC, BMP 08/30/18 06:00 08/30/18 06:00 CMP Sodium 146 mmol/L (136-145) H 08/30/18 06:00 Potassium 3.9 mmol/L (3.5-5.1) 08/30/18 06:00 Chloride 108 mmol/L (98-107) H 08/30/18 06:00 Carbon Dioxide 32 mmol/L (21-32) 08/30/18 06:00 Anion Gap 6 MMOL/L (8-16) L 08/30/18 06:00 BUN 39 mg/dL (7-18) H 08/30/18 06:00 Creatinine 1.4 mg/dL (0.55-1.3) H 08/30/18 06:00 Creat Clearance w eGFR 47.94 (>60) 08/30/18 06:00 POC Glucometer 118 UNITS (80-120) 08/27/18 11:42 Random Glucose 82 mg/dL (74-106) 08/30/18 06:00 Lactic Acid 1.6 mmol/L (0.4-2.0) 08/14/18 22:30 Uric Acid 4.8 mg/dL (2.6-7.2) 08/24/18 06:00 Calcium 7.6 mg/dL (8.5-10.1) L 08/30/18 06:00 Phosphorus 3.9 mg/dL (2.5-4.9) 08/24/18 06:00 Magnesium 2.1 mg/dL (1.8-2.4) 08/24/18 06:00 Total Bilirubin 0.4 mg/dL (0.2-1) 08/30/18 06:00 AST 13 U/L (15-37) L 08/30/18 06:00 ALT 10 U/L (13-61) L 08/30/18 06:00 Alkaline Phosphatase 82 U/L (45-117) 08/30/18 06:00 LD Total 256 U/L (87-246) H 08/24/18 06:00 Creatine Kinase 64 IU/L (26-308) 08/15/18 05:30 Troponin I 0.05 ng/ml (0.00-0.05) 08/15/18 05:30 Total Protein 4.8 g/dl (6.4-8.2) L 08/30/18 06:00 Albumin 1.4 g/dl (3.4-5.0) L 08/30/18 06:00 Problem List - Problems (1) Pneumoperitoneum Assessment/Plan: Incidentally noted on chest CT yesterday Pt HD stable, comfortable, without acute abdomen and tolerated pureed dinner after CT scan Abd/pelvic CT then showed no increase in free air, no free fluid, no barium extravasation though it was mostly distal, and extensive diverticulosis but no obvious source of perforation Minimal abd pain, minimally tender and minimally distended, if at all Pt with multiple high risk factors for surgical morbidity/mortality, as noted last night. He would understandably prefer to avoid unnecessary surgery. He still requests that I speak with Dr. West, who has not yet returned messages or texts. Also spoke with Zuleyma Mesa NP. Given patient's stability over nearly 24 hours after discovery of pneumoperitoneum, and essentially asymptomatic exam, I am inclined to let him resume dysphagia diet in am and continue to monitor. If he experiences sudden or significant pain or distention, would then consider repeating CT and/or emergent surgical intervention. Repeat CT with thickened oral contrast would otherwise be an option to rule out extravasation from any proximal sites, though the longer he is without clinical signs of acute abdomen, the greater the likelihood that whatever perforated has already sealed itself off. Code(s): K66.8 - OTHER SPECIFIED DISORDERS OF PERITONEUM (2) Hypoalbuminemia Code(s): E88.09 - [facility] DISORDERS OF PLASMA-PROTEIN METABOLISM, NEC (3) Chronic anticoagulation Code(s): Z79.01 - [employer] (CURRENT) USE OF ANTICOAGULANTS (4) Atrial fibrillation with rapid ventricular response Code(s): I48.91 - UNSPECIFIED ATRIAL FIBRILLATION (5) Anemia Code(s): D64.9 - ANEMIA, UNSPECIFIED Qualifiers: Anemia type: other cause Other causes of anemia: antineoplastic chemotherapy Qualified Code(s): D64.81 - Anemia due to antineoplastic chemotherapy; T45.1X5A - Adverse effect of antineoplastic and immunosuppressive drugs, initial encounter (6) NHL (non-Hodgkin's lymphoma) Code(s): C85.90 - NON-HODGKIN LYMPHOMA, UNSPECIFIED, UNSPECIFIED SITE Qualifiers: Non-Hodgkin lymphoma type: B-cell B-cell lymphoma type: unspecified B-cell Lymphoma site: unspecified region Qualified Code(s): C85.10 - Unspecified B -cell lymphoma, unspecified site
[2018-08-30] MEDS: DOCUSATE SODIUM 100 MG CAPSULE (FP) PO SCH (21:13)
[2018-08-30] MEDS: ATORVASTATIN CA 20 MG TABLET (FP) PO SCH (21:14)
[2018-08-31] MEDS: FUROSEMIDE 40 MG TABLET (FP) PO SCH ×2 (06:04→14:19)
[2018-08-31] MEDS: METOPROLOL TARTRATE 25 MG TABLET (FP) PO SCH ×3 (06:04→21:08)
[2018-08-31] MEDS: DEXTROSE 5%-0.45% SALINE 1,000 ML IV SCH ×2 (06:05→21:08)
[2018-08-31 07:46] LABS: BASO % 0.6 % (0-2.0); EOS % 1.9 % (0-4.5); HEMATOCRIT 26.3 % (35.4-49); HEMOGLOBIN 8.7 GM/dL (11.7-16.9); LYMPH % 38.5 % (8-40); MCH 31.1 pg (25.7-33.7); MCHC 33.2 g/dl (32.0-35.9); MEAN CELL VOLUME 93.8 fl (80-96); MEAN PLT VOLUME 10.3 fl (7.5-11.1); MONO % 5.7 % (3.8-10.2); NEUT % 53.3 % (42.8-82.8); PLATELET COUNT 150 K/MM3 (134-434); RBC 2.81 M/mm3 (4.00-5.60); RDW 18.6 % (11.9-15.9); WHITE BLOOD COUNT 6.4 K/mm3 (4.0-10.0)
--- NOTE | 2018-08-31 09:08 | PN ---
Progress Note, Physician History of Present Illness: Above noted and discussed with pt denies abdominal pain - Current Medication List Current Medications: Active Medications Acetaminophen (Tylenol -) 650 mg PO Q4H PRN PRN Reason: PAIN Last Admin: 08/28/18 18:40 Dose: 650 mg Acetaminophen (Tylenol -) 650 mg PO Q4H PRN PRN Reason: FEVER Allopurinol (Zyloprim -) 100 mg PO DAILY [facility] Last Admin: 08/30/18 10:09 Dose: 100 mg Amino Acids (Prosource No Carb Liquid Pkt) 30 ml PO BID@0800,1730 [facility] Last Admin: 08/30/18 17:17 Dose: 30 ml Apixaban (Eliquis -) 2.5 mg PO BID [facility] Last Admin: 08/28/18 12:06 Dose: 2.5 mg Atorvastatin Calcium (Lipitor -) 20 mg PO HS [facility] Last Admin: 08/30/18 21:14 Dose: Not Given Diltiazem HCl (Cardizem Injection -) 10 mg IVPUSH Q4H PRN PRN Reason: HR <110 BPM Last Admin: 08/27/18 16:58 Dose: 10 mg Diltiazem HCl (Cardizem Cd -) 180 mg PO DAILY [facility] Last Admin: 08/30/18 10:09 Dose: 180 mg Docusate Sodium (Colace -) 300 mg PO HS [facility] Last Admin: 08/30/18 21:13 Dose: Not Given Furosemide (Lasix -) 80 mg PO DAILY@0600 [facility] Last Admin: 08/31/18 06:04 Dose: 80 mg Furosemide (Lasix -) 40 mg PO DAILY@1400 [facility] Last Admin: 08/30/18 13:59 Dose: 40 mg Dextrose/Sodium Chloride (D5-1/2ns -) 1,000 mls @ 42 mls/hr IV ASDIR [facility] Last Admin: 08/31/18 06:05 Dose: 42 mls/hr Metoprolol Tartrate (Lopressor -) 25 mg PO TID [facility] Last Admin: 08/31/18 06:04 Dose: 25 mg Pantoprazole Sodium (Protonix -) 40 mg PO DAILY [facility] Last Admin: 08/30/18 10:09 Dose: 40 mg Phenazopyridine HCl (Pyridium -) 100 mg PO TID PRN PRN Reason: bladder spasm Last Admin: 08/29/18 14:08 Dose: 100 mg - Objective Vital Signs: Vital Signs Temperature 98.0 F 08/31/18 06:00 Pulse Rate 105 H 08/31/18 06:00 Respiratory Rate 20 08/31/18 06:00 Blood Pressure 106/59 L 08/31/18 06:00 O2 Sat by Pulse Oximetry (%) 98 08/30/18 21:00 Cardiovascular: Yes: S1, S2 Respiratory: Yes: Regular, CTA Bilaterally Gastrointestinal: Yes: Normal Bowel Sounds, Soft. No: Tenderness Labs: CBC, BMP 08/31/18 07:30 INR, PTT INR 1.12 (0.83-1.09) H 08/16/18 07:30 Problem List - Problems (1) Syncope Code(s): R55 - SYNCOPE AND COLLAPSE Qualifiers: Syncope type: vasovagal syncope Qualified Code(s): R55 - Syncope and collapse (2) Sepsis Code(s): A41.9 - SEPSIS, UNSPECIFIED ORGANISM Qualifiers: Sepsis type: Escherichia coli Qualified Code(s): A41.51 - Sepsis due to Escherichia coli [E. coli] (3) Anemia Code(s): D64.9 - ANEMIA, UNSPECIFIED Qualifiers: Anemia type: other cause Other causes of anemia: antineoplastic chemotherapy Qualified Code(s): D64.81 - Anemia due to antineoplastic chemotherapy; T45.1X5A - Adverse effect of antineoplastic and immunosuppressive drugs, initial encounter (4) Afib Code(s): I48.91 - UNSPECIFIED ATRIAL FIBRILLATION Qualifiers: Atrial fibrillation type: chronic Qualified Code(s): I48.2 - Chronic atrial fibrillation (5) Chronic kidney disease (CKD) Code(s): N18.9 - CHRONIC KIDNEY DISEASE, UNSPECIFIED Qualifiers: Chronic kidney disease stage: stage 3 (moderate) Qualified Code(s): N18.3 - Chronic kidney disease, stage 3 (moderate) (6) Chronic lymphocytic leukemia (CLL), B-cell Code(s): C91.10 - CHRONIC LYMPHOCYTIC LEUK OF B-CELL TYPE NOT ACHIEVE REMIS Qualifiers: Leukemia Active/Remission status: in remission Qualified Code(s): C91.11 - Chronic lymphocytic leukemia of B-cell type in remission Assessment/Plan - Problems (1) Afib Assessment/Plan: -Eliquis restarted -Monitor H/H -tele monitoring- uncontrolled afib- rate improved, still consistently above 110 -Cardizem SA D/C'd -Started on Cardizem CD 180 mg po daily -lopressor to 25 mg po TID -Cardiology on board Code(s): I48.91 - UNSPECIFIED ATRIAL FIBRILLATION Qualifiers: Atrial fibrillation type: chronic Qualified Code(s): I48.2 - Chronic atrial fibrillation (2) Anemia Assessment/Plan: 12/20 to hematuria Eliquis restarted -monitor daily labs -Hematology consult -Transfuse if Hg <7.0 Code(s): D64.9 - ANEMIA, UNSPECIFIED Qualifiers: Anemia type: other cause Other causes of anemia: antineoplastic chemotherapy Qualified Code(s): D64.81 - Anemia due to antineoplastic chemotherapy; T45.1X5A - Adverse effect of antineoplastic and immunosuppressive drugs, initial encounter (3) Chronic kidney disease (CKD) Assessment/Plan: at baseline now -monitor trend -U/S renal/bladder left hydronephrosis -s/p cystoscopy Code(s): N18.9 - CHRONIC KIDNEY DISEASE, UNSPECIFIED Qualifiers: Chronic kidney disease stage: stage 3 (moderate) Qualified Code(s): N18.3 - Chronic kidney disease, stage 3 (moderate) (4) Chronic lymphocytic leukemia (CLL), B-cell Code(s): C91.10 - CHRONIC LYMPHOCYTIC LEUK OF B-CELL TYPE NOT ACHIEVE REMIS Qualifiers: Leukemia Active/Remission status: in remission Qualified Code(s): C91.11 - Chronic lymphocytic leukemia of B-cell type in remission (5) Hematuria Assessment/Plan: -chamberlain cath-light pink urine -urology consult -UC negative -Had Cystoscopy: Operative Date: 08/25/18 Pre-Operative Diagnosis: Hematuria Operation: Cysto clot evacuation and chamberlain placement Findings: Bladder filled with clots. Active bleeding noted from the prostate Prostate is moderately obstructive. Ureteral orifices normally located with clear efflux Post-Operative Diagnosis: Same as Pre-op Surgeon: Mila Wise S -pt will be discharged when ready with FC and if medically stable outpatient, Urology will consider TURS Code(s): R31.9 - HEMATURIA, UNSPECIFIED Qualifiers: Hematuria type: gross Qualified Code(s): R31.0 - Gross hematuria (6) Assessment/Plan: -Seen by Psychiatry -alert and oriented x 3, periods of confusion -Remeron 7.5 mg po HS Code(s): F05 - DELIRIUM DUE TO KNOWN PHYSIOLOGICAL CONDITION (7) Metabolic encephalopathy Assessment/Plan: -multifactorial -much improved Code(s): G93.41 - METABOLIC ENCEPHALOPATHY (8) Dysphagia Assessment/Plan: -speech consult -Failed MBS -ENT consult placed -pureed diet with nectar thick liquids -Crush all medication, give with nectar thick liquids -Added Ensure -Keep HOB elevated during and after meals for at least 2 hours Code(s): R13.10 - DYSPHAGIA, UNSPECIFIED (9) Abdominal pain Assessment/Plan: -abdominal US done- unremarkable -On Pantoprazole -Added Colace 300 mg po HS for constipation Code(s): R10.9 - UNSPECIFIED ABDOMINAL PAIN Qualifiers: Abdominal location: lower abdomen, unspecified Qualified Code(s): R10.30 - Lower abdominal pain, unspecified (10) Bladder spasm Assessment/Plan: -pyridium 100mg tab po tid prn Code(s): N32.89 - OTHER SPECIFIED DISORDERS OF BLADDER (11) Hypoalbuminemia Assessment/Plan: -add prosource BID Code(s): E88.09 - OTH DISORDERS OF PLASMA-PROTEIN METABOLISM, NEC (12) Pneumoperitoneum Assessment/Plan: Surgical consult noted and appreciated Incidentally noted on chest CT today done for dysphagia Pt HD stable, comfortable, without acute abdomen and tolerated pureed dinner after CT scan Abdominal pain from yesterday is better today, per patient, and he is minimally tender and minimally distended, if at all Pt with multiple high risk factors for surgical morbidity/mortality, including very low albumin, active anticoagulation, not NPO, advanced age, immunocompromise, as well as multiple medical problems Surgical intervention in this particular case may be urgent, but is not emergent Discussed with patient and nephew at bedside what surgery would involve - laparotomy to look for source of pneumoperitoneum; if hole in stomach, could be patched; if hole in small intestine, could be resected and reconnected; if hole in colon, could result in resection and likely colostomy, which could end up being permanent. He is at high risk for complications, and would likely be in ICU postoperatively, and may not survive surgery, even if not right away. If surgery is not done, since we do not know where the perforation is or whether it may have sealed over, he could do well with observation, or he could continue to leak abdominal contents and get sicker, progressing to sepsis and even possibly dying. The patient requests that I speak with Dr. West, and also with Dr. Blank, who did his surgery in January, if possible. His nephew indicates that he is the patient's proxy. I called and left message for Dr. West and am awaiting call back. Also spoke with Zuleyma Mesa NP. Will get CT abd/pelvis without contrast to better characterize intraabdominal process Further recommendations to follow pending above Code(s): K66.8 - OTHER SPECIFIED DISORDERS OF PERITONEUM
[2018-08-31] MEDS: ALLOPURINOL 100 MG TABLET (FP) PO SCH (09:17)
[2018-08-31] MEDS: AMINO ACIDS/PROTEIN HYDROLYS 30 ML LIQUID.PKT PO SCH ×2 (09:17→17:59)
[2018-08-31] MEDS: PANTOPRAZOLE 40 MG TABLET (FP) PO SCH (09:17)
[2018-08-31 09:43] LABS: ALBUMIN 1.4 g/dl (3.4-5.0); ALK PHOS 78 U/L (45-117); ANION GAP 4 MMOL/L (8-16); BILIRUBIN,TOTAL 0.4 mg/dL (0.2-1); BLOOD UREA NITROGEN 41 mg/dL (7-18); CALCIUM 7.5 mg/dL (8.5-10.1); CHLORIDE 106 mmol/L (98-107); CO2 33 mmol/L (21-32); CREATININE 1.4 mg/dL (0.55-1.3); GLUCOSE,RANDOM 95 mg/dL (74-106); SGOT/AST 16 U/L (15-37); SGPT/ALT 14 U/L (13-61); SODIUM 144 mmol/L (136-145); TOT PROT 4.9 g/dl (6.4-8.2)
--- NOTE | 2018-08-31 12:25 | PN ---
Progress Note, Physician History of Present Illness: Pt with incidentally noted pneumoperitoneum, small to moderate, stable, and essentially asymptomatic. He is seen and examined in bed. He appears comfortable , and states he feels even better than yesterday. He has tolerated his breakfast and is ready for lunch. He is not sure about having any BMs, but inspection of his diaper reveals a moderate very soft brown BM. No acute events overnight. Resendiz with pink-tinged yellow urine. - Current Medication List Current Medications: Active Medications Acetaminophen (Tylenol -) 650 mg PO Q4H PRN PRN Reason: PAIN Last Admin: 08/28/18 18:40 Dose: 650 mg Acetaminophen (Tylenol -) 650 mg PO Q4H PRN PRN Reason: FEVER Allopurinol (Zyloprim -) 100 mg PO DAILY [facility] Last Admin: 08/31/18 09:17 Dose: 100 mg Amino Acids (Prosource No Carb Liquid Pkt) 30 ml PO BID@0800,1730 [facility] Last Admin: 08/31/18 09:17 Dose: 30 ml Apixaban (Eliquis -) 2.5 mg PO BID [facility] Last Admin: 08/28/18 12:06 Dose: 2.5 mg Atorvastatin Calcium (Lipitor -) 20 mg PO HS [facility] Last Admin: 08/30/18 21:14 Dose: Not Given Diltiazem HCl (Cardizem Injection -) 10 mg IVPUSH Q4H PRN PRN Reason: HR <110 BPM Last Admin: 08/27/18 16:58 Dose: 10 mg Diltiazem HCl (Cardizem Cd -) 180 mg PO DAILY [facility] Last Admin: 08/31/18 09:17 Dose: 180 mg Docusate Sodium (Colace -) 300 mg PO HS [facility] Last Admin: 08/30/18 21:13 Dose: Not Given Furosemide (Lasix -) 80 mg PO DAILY@0600 [facility] Last Admin: 08/31/18 06:04 Dose: 80 mg Furosemide (Lasix -) 40 mg PO DAILY@1400 [facility] Last Admin: 08/30/18 13:59 Dose: 40 mg Dextrose/Sodium Chloride (D5-1/2ns -) 1,000 mls @ 42 mls/hr IV ASDIR [facility] Last Admin: 08/31/18 06:05 Dose: 42 mls/hr Metoprolol Tartrate (Lopressor -) 25 mg PO TID [facility] Last Admin: 08/31/18 06:04 Dose: 25 mg Pantoprazole Sodium (Protonix -) 40 mg PO DAILY [facility] Last Admin: 08/31/18 09:17 Dose: 40 mg Phenazopyridine HCl (Pyridium -) 100 mg PO TID PRN PRN Reason: bladder spasm Last Admin: 08/29/18 14:08 Dose: 100 mg - Objective Vital Signs: Vital Signs Temperature 98.1 F 08/31/18 09:41 Pulse Rate 99 H 08/31/18 09:41 Respiratory Rate 20 08/31/18 09:41 Blood Pressure 94/60 08/31/18 09:41 O2 Sat by Pulse Oximetry (%) 98 08/31/18 09:00 Constitutional: Yes: No Distress, Calm, Thin Eyes: Yes: Conjunctiva Clear, EOM Intact HENT: Yes: Atraumatic, Normocephalic Respiratory: Yes: On Nasal O2. No: SOB Gastrointestinal: Yes: Soft, Distention (minimal). No: Tenderness (no significant), Tenderness, Epigastrium, Tenderness, Rebound ...Rectal Exam: Yes: Other (+ mod soft brown BM in diaper) Genitourinary: Yes: Resendiz Present, Hematuria (pink-tinged urine) Extremities: No: Cool, Cyanosis Integumentary: Yes: Skin Tear (with adaptic on arms). No: Jaundice, Rash Neurological: Yes: Alert, Oriented (but forgetful at times) Labs: CBC, BMP 08/31/18 07:30 08/31/18 07:00 H/H stable renal function stable CO2 gradually up slightly Problem List - Problems (1) Pneumoperitoneum Assessment/Plan: Incidentally noted on chest CT Abd/pelvic CT then showed no increase in free air, no free fluid, no barium extravasation though it was mostly distal, and extensive diverticulosis but no obvious source of perforation Pt HD stable, comfortable, without acute abdomen and tolerating resumed diet after 24 hrs NPO except meds No sig abd pain or tenderness and minimally distended, if at all + bowel function Pt with multiple high risk factors for surgical morbidity/mortality. He would understandably prefer to avoid unnecessary surgery. I will speak with Dr. West today. Would continue dysphagia diet as indicated by Darline Rich, and follow clinically for any signs of acute deterioration. If still doing well tomorrow, will likely sign off and defer further management to primary team. If he experiences sudden or significant pain or distention, would then consider repeating CT and/or emergent surgical intervention. Repeat CT with thickened oral contrast would otherwise be an option to rule out extravasation from any proximal sites, though the longer he is without clinical signs of acute abdomen , the greater the likelihood that whatever perforated has already sealed itself off. Code(s): K66.8 - OTHER SPECIFIED DISORDERS OF PERITONEUM (2) Hypoalbuminemia Code(s): E88.09 - H DISORDERS OF PLASMA-PROTEIN METABOLISM, NEC (3) Chronic anticoagulation Code(s): Z79.01 - HALFWAY (CURRENT) USE OF ANTICOAGULANTS (4) Atrial fibrillation with rapid ventricular response Code(s): I48.91 - UNSPECIFIED ATRIAL FIBRILLATION (5) Anemia Code(s): D64.9 - ANEMIA, UNSPECIFIED Qualifiers: Anemia type: other cause Other causes of anemia: antineoplastic chemotherapy Qualified Code(s): D64.81 - Anemia due to antineoplastic chemotherapy; T45.1X5A - Adverse effect of antineoplastic and immunosuppressive drugs, initial encounter (6) NHL (non-Hodgkin's lymphoma) Code(s): C85.90 - NON-HODGKIN LYMPHOMA, UNSPECIFIED, UNSPECIFIED SITE Qualifiers: Non-Hodgkin lymphoma type: B-cell B-cell lymphoma type: unspecified B-cell Lymphoma site: unspecified region Qualified Code(s): C85.10 - Unspecified B -cell lymphoma, unspecified site
--- NOTE | 2018-08-31 13:53 | PN ---
Progress Note, Physician History of Present Illness: Hematuria clearing after cystoscopy showing bladder filled with clots. Active bleeding noted from the prostate, prostate is moderately obstructive. Ureteral orifices normally located with clear efflux. Sensorium improved to baseline, suprapubic discomfort resolved on pyridium. Eliquis resumed, HR control improved with addition of Cardizem, asymptomatic pneumoperitoneum being observed. - Current Medication List Current Medications: Active Medications Acetaminophen (Tylenol -) 650 mg PO Q4H PRN PRN Reason: PAIN Last Admin: 08/28/18 18:40 Dose: 650 mg Acetaminophen (Tylenol -) 650 mg PO Q4H PRN PRN Reason: FEVER Allopurinol (Zyloprim -) 100 mg PO DAILY [facility] Last Admin: 08/31/18 09:17 Dose: 100 mg Amino Acids (Prosource No Carb Liquid Pkt) 30 ml PO BID@0800,1730 [facility] Last Admin: 08/31/18 09:17 Dose: 30 ml Apixaban (Eliquis -) 2.5 mg PO BID [facility] Last Admin: 08/28/18 12:06 Dose: 2.5 mg Atorvastatin Calcium (Lipitor -) 20 mg PO HS [facility] Last Admin: 08/30/18 21:14 Dose: Not Given Diltiazem HCl (Cardizem Injection -) 10 mg IVPUSH Q4H PRN PRN Reason: HR <110 BPM Last Admin: 08/27/18 16:58 Dose: 10 mg Diltiazem HCl (Cardizem Cd -) 180 mg PO DAILY [facility] Last Admin: 08/31/18 09:17 Dose: 180 mg Docusate Sodium (Colace -) 300 mg PO HS [facility] Last Admin: 08/30/18 21:13 Dose: Not Given Furosemide (Lasix -) 80 mg PO DAILY@0600 [facility] Last Admin: 08/31/18 06:04 Dose: 80 mg Furosemide (Lasix -) 40 mg PO DAILY@1400 [facility] Last Admin: 08/30/18 13:59 Dose: 40 mg Dextrose/Sodium Chloride (D5-1/2ns -) 1,000 mls @ 42 mls/hr IV ASDIR [facility] Last Admin: 08/31/18 06:05 Dose: 42 mls/hr Metoprolol Tartrate (Lopressor -) 25 mg PO TID [facility] Last Admin: 08/31/18 06:04 Dose: 25 mg Pantoprazole Sodium (Protonix -) 40 mg PO DAILY [facility] Last Admin: 08/31/18 09:17 Dose: 40 mg Phenazopyridine HCl (Pyridium -) 100 mg PO TID PRN PRN Reason: bladder spasm Last Admin: 08/29/18 14:08 Dose: 100 mg - Objective Vital Signs: Vital Signs Temperature 98.1 F 08/31/18 09:41 Pulse Rate 99 H 08/31/18 09:41 Respiratory Rate 20 08/31/18 09:41 Blood Pressure 94/60 08/31/18 09:41 O2 Sat by Pulse Oximetry (%) 98 08/31/18 09:00 Constitutional: Yes: No Distress, Calm, Thin Neck: Yes: Supple Cardiovascular: Yes: Pulse Irregular Respiratory: Yes: Regular, Diminished, On Nasal O2 Gastrointestinal: Yes: Soft, Hypoactive Bowel Sounds Genitourinary: Yes: Chamberlain Present Edema: No Labs: CBC, BMP 08/31/18 07:30 08/31/18 07:00 INR, PTT INR 1.12 (0.83-1.09) H 08/16/18 07:30 - ....Imaging EKG: Report Reviewed (Tele: Rate-controlled afib) Problem List - Problems (1) Syncope Code(s): R55 - SYNCOPE AND COLLAPSE Qualifiers: Syncope type: vasovagal syncope Qualified Code(s): R55 - Syncope and collapse (2) Acute kidney injury Code(s): N17.9 - ACUTE KIDNEY FAILURE, UNSPECIFIED (3) Anemia due to blood loss, acute Code(s): D62 - ACUTE POSTHEMORRHAGIC ANEMIA (4) Atrial fibrillation with rapid ventricular response Code(s): I48.91 - UNSPECIFIED ATRIAL FIBRILLATION (5) Chronic lymphocytic leukemia (CLL), B-cell Code(s): C91.10 - CHRONIC LYMPHOCYTIC LEUK OF B-CELL TYPE NOT ACHIEVE REMIS Qualifiers: Leukemia Active/Remission status: in remission Qualified Code(s): C91.11 - Chronic lymphocytic leukemia of B-cell type in remission (6) Hyperlipidemia Code(s): E78.5 - HYPERLIPIDEMIA, UNSPECIFIED Qualifiers: Hyperlipidemia type: pure hypercholesterolemia Qualified Code(s): E78.00 - Pure hypercholesterolemia, unspecified; E78.0 - Pure hypercholesterolemia (7) Mesenteric infarction Code(s): K55.069 - ACUTE INFARCTION OF INTESTINE, PART AND EXTENT UNSPECIFIED (8) TIA (transient ischemic attack) Code(s): G45.9 - TRANSIENT CEREBRAL ISCHEMIC ATTACK, UNSPECIFIED Qualifiers: Transient cerebral ischemia type: unspecified Qualified Code(s): G45.9 - Transient cerebral ischemic attack, unspecified (9) Urinary hesitancy Code(s): R39.11 - HESITANCY OF MICTURITION (10) Weakness due to cerebrovascular accident (CVA) Code(s): I63.9 - CEREBRAL INFARCTION, UNSPECIFIED; R53.1 - WEAKNESS (11) Acute on chronic diastolic heart failure Code(s): I50.33 - ACUTE ON CHRONIC DIASTOLIC (CONGESTIVE) HEART FAILURE (12) Pneumoperitoneum Code(s): K66.8 - OTHER SPECIFIED DISORDERS OF PERITONEUM Assessment/Plan Echo: 01/23/2018 Normal biventricular size and fxn, mild-mod TR, mild , mod LAE, mild [place] 1. Post op day #5 post cysto clot evacuation and chamberlain placement, for persistent hematuria 2. Syncope in setting of anemia and intravascular volume depletion from overdiuresis 3. Asymptomatic pneumoperitoneum w/o obvious perforation source 4. 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 CAD angina pectoris, stable 6. Acute on chronic diastolic heart failure 7. Persistent atrial fibrillation with RVR [id number] score of 6 on A/C now off DOAC's/Eliquis 8. History of CVA/TIA 9. HTN 10. Hypercholesterolemia 11. 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 History of recurrent diverticular bleed 13. Acute on CKD (pre-renal) referable to volume depletion from overdiuresis improving, chronic mild-moderate left hydronephrosis 14. 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 Continue Eliquis 2.5 bid as hematuria resolved, continue Metoprolol 25 tid and cardizem 180 qd, Lipitor 20 qhs for rate-control 2. Transfuse to maintain Hgb equal or > 8.0 3. Lasix 80/40 qd with monitor diuretic response, renal function and electrolytes 4. Completed empiric zosyn course per ID, GI protection 5. Antispasmodic for bladder spasms 6. Observation for asymptomatic pneumoperitoneum given multiple co-morbidities
[2018-08-31] MEDS: DOCUSATE SODIUM 100 MG CAPSULE (FP) PO SCH (21:08)
[2018-08-31] MEDS: ATORVASTATIN CA 20 MG TABLET (FP) PO SCH (21:08)
[2018-09-01] MEDS: FUROSEMIDE 40 MG TABLET (FP) PO SCH ×2 (05:47→14:16)
[2018-09-01] MEDS: METOPROLOL TARTRATE 25 MG TABLET (FP) PO SCH ×3 (05:47→21:10)
[2018-09-01 07:34] LABS: BASO % 0.5 % (0-2.0); EOS % 0.8 % (0-4.5); HEMATOCRIT 24.2 % (35.4-49); HEMOGLOBIN 7.9 GM/dL (11.7-16.9); LYMPH % 43.4 % (8-40); MCH 30.5 pg (25.7-33.7); MCHC 32.6 g/dl (32.0-35.9); MEAN CELL VOLUME 93.4 fl (80-96); MEAN PLT VOLUME 10.1 fl (7.5-11.1); NEUT % 48.3 % (42.8-82.8); PLATELET COUNT 144 K/MM3 (134-434); RBC 2.59 M/mm3 (4.00-5.60); RDW 18.4 % (11.9-15.9); WHITE BLOOD COUNT 6.4 K/mm3 (4.0-10.0)
[2018-09-01 08:14] LABS: ALBUMIN 1.4 g/dl (3.4-5.0); ALK PHOS 79 U/L (45-117); ANION GAP -1 MMOL/L (8-16); BILIRUBIN,TOTAL 0.4 mg/dL (0.2-1); BLOOD UREA NITROGEN 46 mg/dL (7-18); CALCIUM 7.3 mg/dL (8.5-10.1); CHLORIDE 107 mmol/L (98-107); CO2 34 mmol/L (21-32); CREATININE 1.4 mg/dL (0.55-1.3); GLUCOSE,RANDOM 89 mg/dL (74-106); POTASSIUM 3.8 mmol/L (3.5-5.1); SGOT/AST 11 U/L (15-37); SGPT/ALT 11 U/L (13-61); SODIUM 140 mmol/L (136-145); TOT PROT 4.6 g/dl (6.4-8.2)
--- NOTE | 2018-09-01 09:00 | PN ---
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 Pt reported not feeling well for few days prior to admission. ED note indicated he had been feeling weak and lightheaded for the past week and has had multiple times where he needed to sit down to rest. On day prior to admission, he had an episode of passing out while standing after feeling lightheaded and weak. Unclear how long he had LOC. Of note, pt was evaluated here in the ED on 08/08 for hematuria and signed out AMA when admission was recommended due to low BP. I was consulted for altered mental status. CT head completed and reviewed and no acute changes. Degenerative subluxation of C7 in relation to T1, C6 on C spine CT. Completed urology procedure 08/25, cysto clot evacuation per notes reviewed. Knows he's in the hospital, can tell me it's August 2018. Can tell me name of President. Today, was able to tell he's at [facility]. Neurologically stable over weekend. Notes reviewed, dispo planning. Active Medications Acetaminophen (Tylenol -) 650 mg PO Q4H PRN PRN Reason: PAIN Last Admin: 08/28/18 18:40 Dose: 650 mg Acetaminophen (Tylenol -) 650 mg PO Q4H PRN PRN Reason: FEVER Allopurinol (Zyloprim -) 100 mg PO DAILY [facility] Last Admin: 08/31/18 09:17 Dose: 100 mg Amino Acids (Prosource No Carb Liquid Pkt) 30 ml PO BID@0800,1730 [facility] Last Admin: 08/31/18 17:59 Dose: 30 ml Apixaban (Eliquis -) 2.5 mg PO BID [facility] Last Admin: 08/28/18 12:06 Dose: 2.5 mg Atorvastatin Calcium (Lipitor -) 20 mg PO HS [facility] Last Admin: 08/31/18 21:08 Dose: 20 mg Diltiazem HCl (Cardizem Injection -) 10 mg IVPUSH Q4H PRN PRN Reason: HR <110 BPM Last Admin: 08/27/18 16:58 Dose: 10 mg Diltiazem HCl (Cardizem Cd -) 180 mg PO DAILY [facility] Last Admin: 08/31/18 09:17 Dose: 180 mg Docusate Sodium (Colace -) 300 mg PO HS [facility] Last Admin: 08/31/18 21:08 Dose: Not Given Furosemide (Lasix -) 80 mg PO DAILY@0600 [facility] Last Admin: 09/01/18 05:47 Dose: 80 mg Furosemide (Lasix -) 40 mg PO DAILY@1400 [facility] Last Admin: 08/31/18 14:19 Dose: 40 mg Dextrose/Sodium Chloride (D5-1/2ns -) 1,000 mls @ 42 mls/hr IV ASDIR [facility] Last Admin: 08/31/18 21:08 Dose: Not Given Metoprolol Tartrate (Lopressor -) 25 mg PO TID [facility] Last Admin: 09/01/18 05:47 Dose: 25 mg Pantoprazole Sodium (Protonix -) 40 mg PO DAILY [facility] Last Admin: 08/31/18 09:17 Dose: 40 mg Phenazopyridine HCl (Pyridium -) 100 mg PO TID PRN PRN Reason: bladder spasm Last Admin: 08/29/18 14:08 Dose: 100 mg PHYSICAL EXAMINATION Vital Signs Period Temp Pulse Resp BP Sys/Gerardo Pulse Ox Last 24 Hr 97.5 F-98.6 F 89-115 18-20 80-125/44-61 97-98 GENERAL: Awake, alert, in no acute distress. HEAD: ecchymosis and abrasion left forehead, hematoma around left eye. abrasion below left eye EYES: Pupils equal, round and reactive to light, extraocular movements intact, sclera anicteric, conjunctiva clear. No lid lag. EARS, NOSE, THROAT: Ears normal, nares patent, oropharynx clear without exudates. Moist mucous membranes. NECK: Normal range of motion, supple without lymphadenopathy, JVD, or masses. LUNGS: Breath sounds equal, clear to auscultation bilaterally. No wheezes, and no crackles. No accessory muscle use. HEART: Regular rate and rhythm, normal S1 and S2 without murmur, rub or gallop. ABDOMEN: Soft, nontender, not distended, normoactive bowel sounds, no guarding, no rebound, no masses. No hepatomegaly or splenomegaly. chamberlain draining bloody urine MUSCULOSKELETAL: Normal range of motion at all joints. No bony deformities or tenderness. No CVA tenderness. UPPER EXTREMITIES: 2+ pulses, warm, well-perfused. No cyanosis. No clubbing. No peripheral edema. LOWER EXTREMITIES: 2+ pulses, warm, well-perfused. No calf tenderness. No peripheral edema. chronic vascular skin changes B/L LE: darkened, hypertrophic skin. NEUROLOGICAL: Awake, alert, dysarthric, sensory intact, moving extremities grossly, gait deferred PSYCHIATRIC: Cooperative. Good eye contact. Appropriate mood and affect. SKIN: Warm, dry, normal turgor, no rashes or lesions noted, normal capillary refill. CBCD WBC 6.4 K/mm3 (4.0-10.0) 09/01/18 06:00 RBC 2.59 M/mm3 (4.00-5.60) L 09/01/18 06:00 Hgb 7.9 GM/dL (11.7-16.9) L 09/01/18 06:00 Hct 24.2 % (35.4-49) L 09/01/18 06:00 MCV 93.4 fl (80-96) 09/01/18 06:00 MCHC 32.6 g/dl (32.0-35.9) 09/01/18 06:00 RDW 18.4 % (11.9-15.9) H 09/01/18 06:00 Plt Count 144 K/MM3 (134-434) 09/01/18 06:00 MPV 10.1 fl (7.5-11.1) 09/01/18 06:00 CMP Sodium 140 mmol/L (136-145) 09/01/18 06:00 Potassium 3.8 mmol/L (3.5-5.1) 09/01/18 06:00 Chloride 107 mmol/L (98-107) 09/01/18 06:00 Carbon Dioxide 34 mmol/L (21-32) H 09/01/18 06:00 Anion Gap -1 MMOL/L (8-16) L 09/01/18 06:00 BUN 46 mg/dL (7-18) H 09/01/18 06:00 Creatinine 1.4 mg/dL (0.55-1.3) H 09/01/18 06:00 Creat Clearance w eGFR 47.94 (>60) 09/01/18 06:00 Random Glucose 89 mg/dL (74-106) 09/01/18 06:00 Calcium 7.3 mg/dL (8.5-10.1) L 09/01/18 06:00 Total Bilirubin 0.4 mg/dL (0.2-1) 09/01/18 06:00 AST 11 U/L (15-37) L 09/01/18 06:00 ALT 11 U/L (13-61) L 09/01/18 06:00 Alkaline Phosphatase 79 U/L (45-117) 09/01/18 06:00 Total Protein 4.6 g/dl (6.4-8.2) L 09/01/18 06:00 Albumin 1.4 g/dl (3.4-5.0) L 09/01/18 06:00 CARDIAC ENZYMES Creatine Kinase 64 IU/L (26-308) 08/15/18 05:30 Troponin I 0.05 ng/ml (0.00-0.05) 08/15/18 05:[address] head Impression. No evidence of acute intracranial hemorrhage, edema, midline shift, mass effect , or skull fracture. No CT evidence of acute territorial infarction. CT c spine Impression. No acute bony abnormalities are seen. Intact odontoid. The predental space is not widened. Multilevel cervical spondylosis. Facet joint arthropathy. Osteoarthritis of uncovertebral joints. 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 Pt reported not feeling well for few days prior to admission. ED note indicated he had been feeling weak and lightheaded for the past week and has had multiple times where he needed to sit down to rest. On day prior to admission, he had an episode of passing out while standing after feeling lightheaded and weak. Unclear how long he had LOC. Of note, pt was evaluated here in the ED on 08/08 for hematuria and signed out AMA when admission was recommended due to low BP. He had a chamberlain catheter in place from home which was draining bloody urine. I was consulted for alerted mental status. Infectious treatment ongoing, no longer on Abx Monitor renal function, optimize Monitor bp, maintain normotensive range Urology follow up, status post clot evacuation Monitor hematuria, H/H, maintain normal range IV/PO hydration DVT ppx Neurologically stable over weekend Mental status at baseline
--- NOTE | 2018-09-01 09:32 | PN ---
Progress Note, Physician History of Present Illness: Hematuria cleared and Eliquis resumed, HR control improved with addition of Cardizem, asymptomatic pneumoperitoneum being observed, sensorium is at baseline. - Current Medication List Current Medications: Active Medications Acetaminophen (Tylenol -) 650 mg PO Q4H PRN PRN Reason: PAIN Last Admin: 08/28/18 18:40 Dose: 650 mg Acetaminophen (Tylenol -) 650 mg PO Q4H PRN PRN Reason: FEVER Allopurinol (Zyloprim -) 100 mg PO DAILY [facility] Last Admin: 08/31/18 09:17 Dose: 100 mg Amino Acids (Prosource No Carb Liquid Pkt) 30 ml PO BID@0800,1730 [facility] Last Admin: 08/31/18 17:59 Dose: 30 ml Apixaban (Eliquis -) 2.5 mg PO BID [facility] Last Admin: 08/28/18 12:06 Dose: 2.5 mg Atorvastatin Calcium (Lipitor -) 20 mg PO HS [facility] Last Admin: 08/31/18 21:08 Dose: 20 mg Diltiazem HCl (Cardizem Injection -) 10 mg IVPUSH Q4H PRN PRN Reason: HR <110 BPM Last Admin: 08/27/18 16:58 Dose: 10 mg Diltiazem HCl (Cardizem Cd -) 180 mg PO DAILY [facility] Last Admin: 09/01/18 09:11 Dose: Not Given Docusate Sodium (Colace -) 300 mg PO HS [facility] Last Admin: 08/31/18 21:08 Dose: Not Given Furosemide (Lasix -) 80 mg PO DAILY@0600 [facility] Last Admin: 09/01/18 05:47 Dose: 80 mg Furosemide (Lasix -) 40 mg PO DAILY@1400 [facility] Last Admin: 08/31/18 14:19 Dose: 40 mg Dextrose/Sodium Chloride (D5-1/2ns -) 1,000 mls @ 42 mls/hr IV ASDIR [facility] Last Admin: 08/31/18 21:08 Dose: Not Given Metoprolol Tartrate (Lopressor -) 25 mg PO TID [facility] Last Admin: 09/01/18 05:47 Dose: 25 mg Pantoprazole Sodium (Protonix -) 40 mg PO DAILY [facility] Last Admin: 08/31/18 09:17 Dose: 40 mg Phenazopyridine HCl (Pyridium -) 100 mg PO TID PRN PRN Reason: bladder spasm Last Admin: 08/29/18 14:08 Dose: 100 mg - Objective Vital Signs: Vital Signs Temperature 97.5 F L 09/01/18 08:31 Pulse Rate 103 H 09/01/18 08:31 Respiratory Rate 20 09/01/18 08:31 Blood Pressure 80/52 L 09/01/18 08:31 O2 Sat by Pulse Oximetry (%) 97 08/31/18 21:00 Constitutional: Yes: No Distress, Calm, Thin Neck: Yes: Supple Cardiovascular: Yes: Pulse Irregular Respiratory: Yes: Regular, Diminished, On Nasal O2 Gastrointestinal: Yes: Normal Bowel Sounds, Soft Edema: No Labs: CBC, BMP 09/01/18 06:00 09/01/18 06:00 INR, PTT INR 1.12 (0.83-1.09) H 08/16/18 07:30 - ....Imaging EKG: Report Reviewed (Tele: Rate-controlled afib) Problem List - Problems (1) Syncope Code(s): R55 - SYNCOPE AND COLLAPSE Qualifiers: Syncope type: vasovagal syncope Qualified Code(s): R55 - Syncope and collapse (2) Acute kidney injury Code(s): N17.9 - ACUTE KIDNEY FAILURE, UNSPECIFIED (3) Anemia due to blood loss, acute Code(s): D62 - ACUTE POSTHEMORRHAGIC ANEMIA (4) Atrial fibrillation with rapid ventricular response Code(s): I48.91 - UNSPECIFIED ATRIAL FIBRILLATION (5) Chronic lymphocytic leukemia (CLL), B-cell Code(s): C91.10 - CHRONIC LYMPHOCYTIC LEUK OF B-CELL TYPE NOT ACHIEVE REMIS Qualifiers: Leukemia Active/Remission status: in remission Qualified Code(s): C91.11 - Chronic lymphocytic leukemia of B-cell type in remission (6) Hyperlipidemia Code(s): E78.5 - HYPERLIPIDEMIA, UNSPECIFIED Qualifiers: Hyperlipidemia type: pure hypercholesterolemia Qualified Code(s): E78.00 - Pure hypercholesterolemia, unspecified; E78.0 - Pure hypercholesterolemia (7) Mesenteric infarction Code(s): K55.069 - ACUTE INFARCTION OF INTESTINE, PART AND EXTENT UNSPECIFIED (8) TIA (transient ischemic attack) Code(s): G45.9 - TRANSIENT CEREBRAL ISCHEMIC ATTACK, UNSPECIFIED Qualifiers: Transient cerebral ischemia type: unspecified Qualified Code(s): G45.9 - Transient cerebral ischemic attack, unspecified (9) Urinary hesitancy Code(s): R39.11 - HESITANCY OF MICTURITION (10) Weakness due to cerebrovascular accident (CVA) Code(s): I63.9 - CEREBRAL INFARCTION, UNSPECIFIED; R53.1 - WEAKNESS (11) Acute on chronic diastolic heart failure Code(s): I50.33 - ACUTE ON CHRONIC DIASTOLIC (CONGESTIVE) HEART FAILURE (12) Pneumoperitoneum Code(s): K66.8 - OTHER SPECIFIED DISORDERS OF PERITONEUM Assessment/Plan Echo: 01/23/2018 Normal biventricular size and fxn, mild-mod TR, mild , mod LAE, mild [place] 1. Post op day #6 post cysto clot evacuation and chamberlain placement, for persistent hematuria 2. Syncope in setting of anemia and intravascular volume depletion from overdiuresis 3. Asymptomatic pneumoperitoneum w/o obvious perforation source 4. 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 CAD angina pectoris, stable 6. Acute on chronic diastolic heart failure 7. Persistent atrial fibrillation with RVR [id number] score of 6 on A/C now off DOAC's/Eliquis 8. History of CVA/TIA 9. HTN 10. Hypercholesterolemia 11. 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 History of recurrent diverticular bleed 13. Acute on CKD (pre-renal) referable to volume depletion from overdiuresis improving, chronic mild-moderate left hydronephrosis 14. 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 Continue Eliquis 2.5 bid as hematuria has resolved, continue Metoprolol 25 tid and cardizem 180 qd, Lipitor 20 qhs for rate-control 2. Transfuse to maintain Hgb equal or > 8.0 3. Lasix 80/40 qd with monitor diuretic response, renal function and electrolytes 4. Completed empiric zosyn course per ID, GI protection 5. Antispasmodic for bladder spasms 6. Observation for asymptomatic pneumoperitoneum given multiple co-morbidities
[2018-09-01] MEDS: ALLOPURINOL 100 MG TABLET (FP) PO SCH (09:56)
[2018-09-01] MEDS: AMINO ACIDS/PROTEIN HYDROLYS 30 ML LIQUID.PKT PO SCH ×2 (09:56→17:04)
[2018-09-01] MEDS: PANTOPRAZOLE 40 MG TABLET (FP) PO SCH (09:56)
--- NOTE | 2018-09-01 11:32 | PN ---
Progress Note, Physician Chief Complaint: Sepsis Hematuria Anemia History of Present Illness: NAD, very alert, oriented x 3 Indwelling chamberlain cath-light pink urine Seen by Urology s/p cystoscopy Renal fxn improving Pt at high risk for stroke Now with Pneumoperitoneum Tolerating PO intake mild hypotension Seen by nephrology and cardiology On tele - Current Medication List Current Medications: Active Medications Acetaminophen (Tylenol -) 650 mg PO Q4H PRN PRN Reason: PAIN Last Admin: 08/28/18 18:40 Dose: 650 mg Acetaminophen (Tylenol -) 650 mg PO Q4H PRN PRN Reason: FEVER Allopurinol (Zyloprim -) 100 mg PO DAILY [facility] Last Admin: 09/01/18 09:56 Dose: 100 mg Amino Acids (Prosource No Carb Liquid Pkt) 30 ml PO BID@0800,1730 [facility] Last Admin: 09/01/18 09:56 Dose: 30 ml Apixaban (Eliquis -) 2.5 mg PO BID [facility] Last Admin: 08/28/18 12:06 Dose: 2.5 mg Atorvastatin Calcium (Lipitor -) 20 mg PO HS [facility] Last Admin: 08/31/18 21:08 Dose: 20 mg Diltiazem HCl (Cardizem Injection -) 10 mg IVPUSH Q4H PRN PRN Reason: HR <110 BPM Last Admin: 08/27/18 16:58 Dose: 10 mg Diltiazem HCl (Cardizem Cd -) 180 mg PO DAILY [facility] Last Admin: 09/01/18 09:11 Dose: Not Given Docusate Sodium (Colace -) 300 mg PO HS [facility] Last Admin: 08/31/18 21:08 Dose: Not Given Furosemide (Lasix -) 80 mg PO DAILY@0600 [facility] Last Admin: 09/01/18 05:47 Dose: 80 mg Furosemide (Lasix -) 40 mg PO DAILY@1400 [facility] Last Admin: 08/31/18 14:19 Dose: 40 mg Dextrose/Sodium Chloride (D5-1/2ns -) 1,000 mls @ 42 mls/hr IV ASDIR [facility] Last Admin: 08/31/18 21:08 Dose: Not Given Metoprolol Tartrate (Lopressor -) 25 mg PO TID [facility] Last Admin: 09/01/18 05:47 Dose: 25 mg Pantoprazole Sodium (Protonix -) 40 mg PO DAILY [facility] Last Admin: 09/01/18 09:56 Dose: 40 mg Phenazopyridine HCl (Pyridium -) 100 mg PO TID PRN PRN Reason: bladder spasm Last Admin: 08/29/18 14:08 Dose: 100 mg - Objective Vital Signs: Vital Signs Temperature 97.5 F L 09/01/18 08:31 Pulse Rate 103 H 09/01/18 08:31 Respiratory Rate 20 09/01/18 09:00 Blood Pressure 80/52 L 09/01/18 08:31 O2 Sat by Pulse Oximetry (%) 97 09/01/18 09:00 Constitutional: Yes: No Distress, Calm, Thin Cardiovascular: Yes: Pulse Irregular Respiratory: Yes: Regular Gastrointestinal: Yes: Normal Bowel Sounds, Distention, Tenderness (diffuse) Musculoskeletal: Yes: Muscle Weakness Extremities: Yes: WNL Edema: No Peripheral Pulses WNL: Yes Neurological: Yes: Alert, Oriented Psychiatric: Yes: Alert, Oriented Labs: CBC, BMP 09/01/18 06:00 09/01/18 06:00 INR, PTT INR 1.12 (0.83-1.09) H 08/16/18 07:30 Problem List - Problems (1) Afib Assessment/Plan: -Eliquis restarted -Monitor H/H -tele monitoring- uncontrolled afib- rate improved -Cardizem SA D/C'd -Started on Cardizem CD 180 mg po daily -lopressor to 25 mg po TID -Cardiology on board Code(s): I48.91 - UNSPECIFIED ATRIAL FIBRILLATION Qualifiers: Atrial fibrillation type: chronic Qualified Code(s): I48.2 - Chronic atrial fibrillation (2) Anemia Assessment/Plan: 2/2 to hematuria -Eliquis restarted -Hg-7.9 today, repeat labs in afternoon ordered by nephrology -monitor daily labs -Hematology consult -Transfuse if Hg <7.0 -Added Iron profile -Epogen ordered by nephrology Code(s): D64.9 - ANEMIA, UNSPECIFIED Qualifiers: Anemia type: other cause Other causes of anemia: antineoplastic chemotherapy Qualified Code(s): D64.81 - Anemia due to antineoplastic chemotherapy; T45.1X5A - Adverse effect of antineoplastic and immunosuppressive drugs, initial encounter (3) Chronic kidney disease (CKD) Assessment/Plan: at baseline now -monitor trend -U/S renal/bladder left hydronephrosis -s/p cystoscopy Code(s): N18.9 - CHRONIC KIDNEY DISEASE, UNSPECIFIED Qualifiers: Chronic kidney disease stage: stage 3 (moderate) Qualified Code(s): N18.3 - Chronic kidney disease, stage 3 (moderate) (4) Chronic lymphocytic leukemia (CLL), B-cell Code(s): C91.10 - CHRONIC LYMPHOCYTIC LEUK OF B-CELL TYPE NOT ACHIEVE REMIS Qualifiers: Leukemia Active/Remission status: in remission Qualified Code(s): C91.11 - Chronic lymphocytic leukemia of B-cell type in remission (5) Hematuria Assessment/Plan: -chamberlain cath -urology consult -UC negative -Had Cystoscopy: Operative Date: 08/25/18 Pre-Operative Diagnosis: Hematuria Operation: Cysto clot evacuation and chamberlain placement Findings: Bladder filled with clots. Active bleeding noted from the prostate Prostate is moderately obstructive. Ureteral orifices normally located with clear efflux Post-Operative Diagnosis: Same as Pre-op Surgeon: Mila Wise S -pt will be discharged when ready with FC and if medically stable outpatient, Urology will consider TURS Code(s): R31.9 - HEMATURIA, UNSPECIFIED Qualifiers: Hematuria type: gross Qualified Code(s): R31.0 - Gross hematuria (6) Sundowning Assessment/Plan: -Seen by Psychiatry -alert and oriented x 3, periods of confusion -Remeron 7.5 mg po HS Code(s): F05 - DELIRIUM DUE TO KNOWN PHYSIOLOGICAL CONDITION (7) Metabolic encephalopathy Assessment/Plan: -multifactorial -much improved Code(s): G93.41 - METABOLIC ENCEPHALOPATHY (8) Dysphagia Assessment/Plan: -speech consult -Failed MBS -ENT consult -pureed diet with nectar thick liquids -Crush all medication, give with nectar thick liquids -Added Ensure -Keep HOB elevated during and after meals for at least 2 hours Code(s): R13.10 - DYSPHAGIA, UNSPECIFIED (9) Abdominal pain Assessment/Plan: -2/2 to pneumoperitoneum -tolerating PO intake -Surgery on board -On Pantoprazole -Added Colace 300 mg po HS for constipation Code(s): R10.9 - UNSPECIFIED ABDOMINAL PAIN Qualifiers: Abdominal location: lower abdomen, unspecified Qualified Code(s): R10.30 - Lower abdominal pain, unspecified (10) Bladder spasm Assessment/Plan: -pyridium 100mg tab po tid prn Code(s): N32.89 - OTHER SPECIFIED DISORDERS OF BLADDER (11) Hypoalbuminemia Assessment/Plan: -add prosource BID Code(s): E88.09 - OTH DISORDERS OF PLASMA-PROTEIN METABOLISM, NEC Assessment/Plan see problem list Physical therapy
[2018-09-01] MEDS ORDERED: dilTIAZem HCL 25 MG/5 ML - 5 ML VIAL IVPUSH PRN (11:52)
--- NOTE | 2018-09-01 11:56 | PN ---
Progress Note (short form) - Note Progress Note: Renal follow up for JOON on CKD Pt seen and examined at the bedside awake and alert no acute complaints no abd pain, N/V/D no fever or chills BP is low this am on 11/19 NS Vital Signs Temperature 97.5 F L 09/01/18 08:31 Pulse Rate 103 H 09/01/18 08:31 Respiratory Rate 20 09/01/18 09:00 Blood Pressure 80/52 L 09/01/18 08:31 O2 Sat by Pulse Oximetry (%) 97 09/01/18 09:00 Intake & Output 08/29/18 08/30/18 08/31/18 09/01/18 23:59 23:59 23:59 23:59 Intake Total 1050 2284 414 Output Total 2450 3800 1950 850 Balance -2450 -2750 334 -436 NAD confused No LE edema chamberlain with bloody urine CBC, BMP 09/01/18 06:00 09/01/18 06:00 Current Medications Acetaminophen (Tylenol -) 650 mg PO Q4H PRN PRN Reason: PAIN Last Admin: 08/28/18 18:40 Dose: 650 mg Acetaminophen (Tylenol -) 650 mg PO Q4H PRN PRN Reason: FEVER Allopurinol (Zyloprim -) 100 mg PO DAILY [facility] Last Admin: 09/01/18 09:56 Dose: 100 mg Amino Acids (Prosource No Carb Liquid Pkt) 30 ml PO BID@0800,1730 [facility] Last Admin: 09/01/18 09:56 Dose: 30 ml Apixaban (Eliquis -) 2.5 mg PO BID [facility] Last Admin: 08/28/18 12:06 Dose: 2.5 mg Atorvastatin Calcium (Lipitor -) 20 mg PO HS [facility] Last Admin: 08/31/18 21:08 Dose: 20 mg Diltiazem HCl (Cardizem Cd -) 180 mg PO DAILY [facility] Last Admin: 09/01/18 09:11 Dose: Not Given Diltiazem HCl (Cardizem Injection -) 10 mg IVPUSH Q4H PRN PRN Reason: HR >110 BPM Docusate Sodium (Colace -) 300 mg PO [facility] Last Admin: 08/31/18 21:08 Dose: Not Given Furosemide (Lasix -) 40 mg PO DAILY@1400 [facility] Furosemide (Lasix -) 80 mg PO DAILY@0600 [facility] Metoprolol Tartrate (Lopressor -) 25 mg PO TID [facility] Last Admin: 09/01/18 05:47 Dose: 25 mg Pantoprazole Sodium (Protonix -) 40 mg PO DAILY [facility] Last Admin: 09/01/18 09:56 Dose: 40 mg Phenazopyridine HCl (Pyridium -) 100 mg PO TID PRN PRN Reason: bladder spasm Last Admin: 08/29/18 14:08 Dose: 100 mg 87 year old gentleman known to our service with 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 #Syncope #JOON secondary to volume depletion +/- bladder outlet obstruction #Lactic acidosis (now resolved) #Leukocytosis #Urinary retention with chronic chamberlain #Hx of LE edema #Hematuria #Hypernatremia #Pneumoperitonieum Renal function stable BP is low, if remains low will need to hold diuretics and istonic saline bolous on BB and CCB for HR control, adjust as per cardiology Surgical follow up for Abd, no tenderness or distension repeat CBC this afternoon, transfuse for Hgb < 7 will give Epogen 71371 units SC x 1 today f/u iron profile Peewee Torres DO
[2018-09-01] MEDS ORDERED: SODIUM CHLORIDE 250 ML IV ONE (14:45)
--- NOTE | 2018-09-01 14:49 | PN ---
Progress Note, CUSTOMER CONSULTING MANAGER - Note Progress Note: Selected Entries 08/29/18 08/29/18 08/31/18 02:00 10:50 02:00 Breakfast 75% Lunch Supper Temperature 98.2 F 97.7 F 08/31/18 08/31/18 08/31/18 06:00 09:41 09:55 Breakfast 100% Lunch Supper Temperature 98.0 F 98.1 F 08/31/18 08/31/18 08/31/18 14:00 16:20 21:48 Breakfast 100% Lunch 100% Supper 25% Temperature 97.9 F 97.9 F 08/31/18 09/01/18 09/01/18 22:00 02:00 06:00 Breakfast Lunch Supper Temperature 98.1 F 97.9 F 98.6 F 09/01/18 09/01/18 09/01/18 08:25 08:31 09:00 Breakfast 100% 100% Lunch Supper Temperature 97.5 F L Laboratory Tests 08/29/18 09/01/18 07:10 06:00 WBC 9.2 6.4 Medical events noted. Handout of compensatory swallowing recommendations and swallowing exercise given to pt. Ct chest/soft tissue of neck reviewed. ENT pending. Pt tolerating modified diet. Pt will benefit from continued swallowing rehab upon d/c to [facility].
[2018-09-01 16:54] LABS: HEMATOCRIT 26.6 % (35.4-49); HEMOGLOBIN 8.7 GM/dL (11.7-16.9); MCH 30.3 pg (25.7-33.7); MCHC 32.8 g/dl (32.0-35.9); MEAN CELL VOLUME 92.3 fl (80-96); MEAN PLT VOLUME 10.7 fl (7.5-11.1); PLATELET COUNT 186 K/MM3 (134-434); RBC 2.89 M/mm3 (4.00-5.60); RDW 18.2 % (11.9-15.9)
--- NOTE | 2018-09-01 17:10 | PN ---
Progress Note, Physician History of Present Illness: Pt with incidentally noted pneumoperitoneum, small to moderate, stable, and essentially asymptomatic. He is seen and examined in bed with grandnephew present. He appears comfortable, and states he feels well. He is tolerating his dysphagia/modified diet. No acute events overnight. Resendiz with hematuria. Having BMs. - Current Medication List Current Medications: Active Medications Acetaminophen (Tylenol -) 650 mg PO Q4H PRN PRN Reason: PAIN Last Admin: 08/28/18 18:40 Dose: 650 mg Acetaminophen (Tylenol -) 650 mg PO Q4H PRN PRN Reason: FEVER Allopurinol (Zyloprim -) 100 mg PO DAILY [facility] Last Admin: 09/01/18 09:56 Dose: 100 mg Amino Acids (Prosource No Carb Liquid Pkt) 30 ml PO BID@0800,1730 [facility] Last Admin: 09/01/18 17:04 Dose: 30 ml Apixaban (Eliquis -) 2.5 mg PO BID [facility] Last Admin: 08/28/18 12:06 Dose: 2.5 mg Atorvastatin Calcium (Lipitor -) 20 mg PO [facility] Last Admin: 08/31/18 21:08 Dose: 20 mg Diltiazem HCl (Cardizem Cd -) 180 mg PO DAILY [facility] Last Admin: 09/01/18 09:11 Dose: Not Given Diltiazem HCl (Cardizem Injection -) 10 mg IVPUSH Q4H PRN PRN Reason: HR >110 BPM Docusate Sodium (Colace -) 300 mg PO [facility] Last Admin: 08/31/18 21:08 Dose: Not Given Furosemide (Lasix -) 40 mg PO DAILY@1400 [facility] Last Admin: 09/01/18 14:16 Dose: Not Given Furosemide (Lasix -) 80 mg PO DAILY@0600 [facility] Metoprolol Tartrate (Lopressor -) 25 mg PO TID [facility] Last Admin: 09/01/18 13:56 Dose: Not Given Pantoprazole Sodium (Protonix -) 40 mg PO DAILY [facility] Last Admin: 09/01/18 09:56 Dose: 40 mg Phenazopyridine HCl (Pyridium -) 100 mg PO TID PRN PRN Reason: bladder spasm Last Admin: 08/29/18 14:08 Dose: 100 mg - Objective Vital Signs: Vital Signs Temperature 97.5 F L 10/15/18 08:31 Pulse Rate 103 H 09/01/18 08:31 Respiratory Rate 20 09/01/18 09:00 Blood Pressure 80/52 L 09/01/18 08:31 O2 Sat by Pulse Oximetry (%) 97 09/01/18 09:00 Constitutional: Yes: No Distress, Calm, Thin Eyes: Yes: Conjunctiva Clear, EOM Intact, Other (glasses) HENT: Yes: Atraumatic, Normocephalic Gastrointestinal: Yes: Soft. No: Distention, Tenderness, Tenderness, Epigastrium ...Rectal Exam: Yes: Deferred Genitourinary: Yes: Resendiz Present, Hematuria Extremities: No: Cool, Cyanosis Integumentary: Yes: Bruising (few scattered ecchymoses), Skin Tear (with mepilex on arms). No: Rash Neurological: Yes: Alert, Oriented Labs: CBC, BMP 09/01/18 16:00 09/01/18 06:00 CO2 little high H/H stable Problem List - Problems (1) Pneumoperitoneum Assessment/Plan: Incidentally noted on chest CT Abd/pelvic CT then showed no increase in free air, no free fluid, no barium extravasation though it was mostly distal, and extensive diverticulosis but no obvious source of perforation Pt HD stable, comfortable, without acute abdomen and tolerating diet after 24 hrs NPO except meds No sig abd pain, tenderness or distention + bowel function Dr. West and I have not yet been able to speak, though have left messages for each other. Plan to discuss with BAG SHAKER Peggy. Would continue dysphagia diet as indicated by Darline Rich, and follow clinically for any signs of acute deterioration. Will sign off and defer further management to primary team. If he experiences sudden or significant pain or distention, would then consider repeating CT and/or surgical intervention. The longer he is without clinical signs of acute abdomen, the greater the likelihood that whatever led to pneumoperitoneum has already sealed itself off. Code(s): K66.8 - OTHER SPECIFIED DISORDERS OF PERITONEUM (2) Hypoalbuminemia Code(s): E88.09 - OTH DISORDERS OF PLASMA-PROTEIN METABOLISM, NEC (3) Chronic anticoagulation Assessment/Plan: defer to urology and primary team concerning resumption Code(s): Z79.01 - OWNER/PHOTOGRAPHER (CURRENT) USE OF ANTICOAGULANTS (4) Atrial fibrillation with rapid ventricular response Code(s): I48.91 - UNSPECIFIED ATRIAL FIBRILLATION (5) Anemia Code(s): D64.9 - ANEMIA, UNSPECIFIED Qualifiers: Anemia type: other cause Other causes of anemia: antineoplastic chemotherapy Qualified Code(s): D64.81 - Anemia due to antineoplastic chemotherapy; T45.1X5A - Adverse effect of antineoplastic and immunosuppressive drugs, initial encounter (6) NHL (non-Hodgkin's lymphoma) Code(s): C85.90 - NON-HODGKIN LYMPHOMA, UNSPECIFIED, UNSPECIFIED SITE Qualifiers: Non-Hodgkin lymphoma type: B-cell B-cell lymphoma type: unspecified B-cell Lymphoma site: unspecified region Qualified Code(s): C85.10 - Unspecified B -cell lymphoma, unspecified site
[2018-09-01] MEDS: APIXABAN 2.5 MG TABLET PO SCH (21:09)
[2018-09-01] MEDS: DOCUSATE SODIUM 100 MG CAPSULE (FP) PO SCH (21:09)
[2018-09-01] MEDS: ATORVASTATIN CA 20 MG TABLET (FP) PO SCH (21:09)
[2018-09-01] MEDS: ACETAMINOPHEN 325 MG TABLET (FP) PO PRN (23:02)
[2018-09-02] MEDS: METOPROLOL TARTRATE 25 MG TABLET (FP) PO SCH ×3 (05:12→21:54)
[2018-09-02] MEDS: FUROSEMIDE 40 MG TABLET (FP) PO SCH ×2 (05:12→13:58)
[2018-09-02 06:57] LABS: BASO % 0.6 % (0-2.0); EOS % 1.2 % (0-4.5); HEMATOCRIT 23.3 % (35.4-49); HEMOGLOBIN 7.7 GM/dL (11.7-16.9); LYMPH % 45.4 % (8-40); MCH 30.7 pg (25.7-33.7); MCHC 32.9 g/dl (32.0-35.9); MEAN CELL VOLUME 93.1 fl (80-96); MEAN PLT VOLUME 10.1 fl (7.5-11.1); MONO % 6.4 % (3.8-10.2); NEUT % 46.4 % (42.8-82.8); PLATELET COUNT 150 K/MM3 (134-434); RBC 2.51 M/mm3 (4.00-5.60); RDW 17.8 % (11.9-15.9); WHITE BLOOD COUNT 6.2 K/mm3 (4.0-10.0)
[2018-09-02 07:18] LABS: ANION GAP 4 MMOL/L (8-16); BLOOD UREA NITROGEN 49 mg/dL (7-18); CALCIUM 7.1 mg/dL (8.5-10.1); CHLORIDE 104 mmol/L (98-107); CO2 34 mmol/L (21-32); CREATININE 1.4 mg/dL (0.55-1.3); GLUCOSE,RANDOM 84 mg/dL (74-106); MAGNESIUM 1.7 mg/dL (1.8-2.4); POTASSIUM 3.9 mmol/L (3.5-5.1); SODIUM 141 mmol/L (136-145)
--- NOTE | 2018-09-02 08:40 | PN ---
Progress Note, Physician - Current Medication List Current Medications: Active Medications Acetaminophen (Tylenol -) 650 mg PO Q4H PRN PRN Reason: PAIN Last Admin: 09/01/18 23:02 Dose: 650 mg Acetaminophen (Tylenol -) 650 mg PO Q4H PRN PRN Reason: FEVER Allopurinol (Zyloprim -) 100 mg PO DAILY [facility] Last Admin: 09/01/18 09:56 Dose: 100 mg Amino Acids (Prosource No Carb Liquid Pkt) 30 ml PO BID@0800,1730 [facility] Last Admin: 09/01/18 17:04 Dose: 30 ml Apixaban (Eliquis -) 2.5 mg PO BID [facility] Last Admin: 09/01/18 21:09 Dose: 2.5 mg Atorvastatin Calcium (Lipitor -) 20 mg PO HS [facility] Last Admin: 09/01/18 21:09 Dose: 20 mg Diltiazem HCl (Cardizem Cd -) 180 mg PO DAILY [facility] Last Admin: 09/01/18 09:11 Dose: Not Given Diltiazem HCl (Cardizem Injection -) 10 mg IVPUSH Q4H PRN PRN Reason: HR >110 BPM Docusate Sodium (Colace -) 300 mg PO HS [facility] Last Admin: 09/01/18 21:09 Dose: Not Given Furosemide (Lasix -) 40 mg PO DAILY@1400 [facility] Last Admin: 09/01/18 14:16 Dose: Not Given Furosemide (Lasix -) 80 mg PO DAILY@0600 [facility] Last Admin: 09/02/18 05:12 Dose: 80 mg Metoprolol Tartrate (Lopressor -) 25 mg PO TID [facility] Last Admin: 09/02/18 05:12 Dose: 25 mg Pantoprazole Sodium (Protonix -) 40 mg PO DAILY [facility] Last Admin: 09/01/18 09:56 Dose: 40 mg Phenazopyridine HCl (Pyridium -) 100 mg PO TID PRN PRN Reason: bladder spasm Last Admin: 08/29/18 14:08 Dose: 100 mg - Objective Vital Signs: Vital Signs Temperature 98.7 F 09/02/18 06:02 Pulse Rate 123 H 09/02/18 06:02 Respiratory Rate 18 09/02/18 06:02 Blood Pressure 103/58 L 09/02/18 06:02 O2 Sat by Pulse Oximetry (%) 98 09/01/18 21:00 Labs: CBC, BMP 09/02/18 06:00 09/02/18 06:00 INR, PTT INR 1.12 (0.83-1.09) H 08/16/18 07:30 Problem List - Problems (1) Syncope Code(s): R55 - SYNCOPE AND COLLAPSE Qualifiers: Syncope type: vasovagal syncope Qualified Code(s): R55 - Syncope and collapse (2) Sepsis Code(s): A41.9 - SEPSIS, UNSPECIFIED ORGANISM Qualifiers: Sepsis type: Escherichia coli Qualified Code(s): A41.51 - Sepsis due to Escherichia coli [E. coli] (3) Anemia Code(s): D64.9 - ANEMIA, UNSPECIFIED Qualifiers: Anemia type: other cause Other causes of anemia: antineoplastic chemotherapy Qualified Code(s): D64.81 - Anemia due to antineoplastic chemotherapy; T45.1X5A - Adverse effect of antineoplastic and immunosuppressive drugs, initial encounter (4) Afib Code(s): I48.91 - UNSPECIFIED ATRIAL FIBRILLATION Qualifiers: Atrial fibrillation type: chronic Qualified Code(s): I48.2 - Chronic atrial fibrillation (5) Chronic kidney disease (CKD) Code(s): N18.9 - CHRONIC KIDNEY DISEASE, UNSPECIFIED Qualifiers: Chronic kidney disease stage: stage 3 (moderate) Qualified Code(s): N18.3 - Chronic kidney disease, stage 3 (moderate) (6) Chronic lymphocytic leukemia (CLL), B-cell Code(s): C91.10 - CHRONIC LYMPHOCYTIC LEUK OF B-CELL TYPE NOT ACHIEVE REMIS Qualifiers: Leukemia Active/Remission status: in remission Qualified Code(s): C91.11 - Chronic lymphocytic leukemia of B-cell type in remission
--- NOTE | 2018-09-02 09:09 | PN ---
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 Pt reported not feeling well for few days prior to admission. ED note indicated he had been feeling weak and lightheaded for the past week and has had multiple times where he needed to sit down to rest. On day prior to admission, he had an episode of passing out while standing after feeling lightheaded and weak. Unclear how long he had LOC. Of note, pt was evaluated here in the ED on 08/08 for hematuria and signed out AMA when admission was recommended due to low BP. I was consulted for altered mental status. CT head completed and reviewed and no acute changes. Degenerative subluxation of C7 in relation to T1, C6 on C spine CT. Completed urology procedure 08/25, cysto clot evacuation per notes reviewed. Is awake, alert, knows he's in hospital. Is being planned for SNF at this time. Neurologically no acute events and has been stable. Active Medications Acetaminophen (Tylenol -) 650 mg PO Q4H PRN PRN Reason: PAIN Last Admin: 09/01/18 23:02 Dose: 650 mg Acetaminophen (Tylenol -) 650 mg PO Q4H PRN PRN Reason: FEVER Allopurinol (Zyloprim -) 100 mg PO DAILY [facility] Last Admin: 09/01/18 09:56 Dose: 100 mg Amino Acids (Prosource No Carb Liquid Pkt) 30 ml PO BID@0800,1730 [facility] Last Admin: 09/01/18 17:04 Dose: 30 ml Apixaban (Eliquis -) 2.5 mg PO BID [facility] Last Admin: 09/01/18 21:09 Dose: 2.5 mg Atorvastatin Calcium (Lipitor -) 20 mg PO HS [facility] Last Admin: 09/01/18 21:09 Dose: 20 mg Diltiazem HCl (Cardizem Cd -) 180 mg PO DAILY [facility] Last Admin: 09/01/18 09:11 Dose: Not Given Diltiazem HCl (Cardizem Injection -) 10 mg IVPUSH Q4H PRN PRN Reason: HR >110 BPM Docusate Sodium (Colace -) 300 mg PO [facility] Last Admin: 09/01/18 21:09 Dose: Not Given Furosemide (Lasix -) 40 mg PO DAILY@1400 [facility] Last Admin: 09/01/18 14:16 Dose: Not Given Furosemide (Lasix -) 80 mg PO DAILY@0600 [facility] Last Admin: 09/02/18 05:12 Dose: 80 mg Metoprolol Tartrate (Lopressor -) 25 mg PO TID [facility] Last Admin: 09/02/18 05:12 Dose: 25 mg Pantoprazole Sodium (Protonix -) 40 mg PO DAILY [facility] Last Admin: 09/01/18 09:56 Dose: 40 mg Phenazopyridine HCl (Pyridium -) 100 mg PO TID PRN PRN Reason: bladder spasm Last Admin: 08/29/18 14:08 Dose: 100 mg PHYSICAL EXAMINATION Vital Signs Period Temp Pulse Resp BP Sys/Gerardo Pulse Ox Last 24 Hr 97 F-98.7 F 107-123 18-20 96-107/56-64 98 GENERAL: Awake, alert, in no acute distress. HEAD: ecchymosis and abrasion left forehead, hematoma around left eye. abrasion below left eye EYES: Pupils equal, round and reactive to light, extraocular movements intact, sclera anicteric, conjunctiva clear. No lid lag. EARS, NOSE, THROAT: Ears normal, nares patent, oropharynx clear without exudates. Moist mucous membranes. NECK: Normal range of motion, supple without lymphadenopathy, JVD, or masses. LUNGS: Breath sounds equal, clear to auscultation bilaterally. No wheezes, and no crackles. No accessory muscle use. HEART: Regular rate and rhythm, normal S1 and S2 without murmur, rub or gallop. ABDOMEN: Soft, nontender, not distended, normoactive bowel sounds, no guarding, no rebound, no masses. No hepatomegaly or splenomegaly. chamberlain draining bloody urine MUSCULOSKELETAL: Normal range of motion at all joints. No bony deformities or tenderness. No CVA tenderness. UPPER EXTREMITIES: 2+ pulses, warm, well-perfused. No cyanosis. No clubbing. No peripheral edema. LOWER EXTREMITIES: 2+ pulses, warm, well-perfused. No calf tenderness. No peripheral edema. chronic vascular skin changes B/L LE: darkened, hypertrophic skin. NEUROLOGICAL: Awake, alert, dysarthric, sensory intact, moving extremities grossly, gait deferred PSYCHIATRIC: Cooperative. Good eye contact. Appropriate mood and affect. SKIN: Warm, dry, normal turgor, no rashes or lesions noted, normal capillary refill. CBCD WBC 6.2 K/mm3 (4.0-10.0) 09/02/18 06:00 RBC 2.51 M/mm3 (4.00-5.60) L 09/02/18 06:00 Hgb 7.7 GM/dL (11.7-16.9) L 09/02/18 06:00 Hct 23.3 % (35.4-49) L 09/02/18 06:00 MCV 93.1 fl (80-96) 09/02/18 06:00 MCHC 32.9 g/dl (32.0-35.9) 09/02/18 06:00 RDW 17.8 % (11.9-15.9) H 09/02/18 06:00 Plt Count 150 K/MM3 (134-434) 09/02/18 06:00 MPV 10.1 fl (7.5-11.1) 09/02/18 06:00 CMP Sodium 141 mmol/L (136-145) 09/02/18 06:00 Potassium 3.9 mmol/L (3.5-5.1) 09/02/18 06:00 Chloride 104 mmol/L (98-107) 09/02/18 06:00 Carbon Dioxide 34 mmol/L (21-32) H 09/02/18 06:00 Anion Gap 4 MMOL/L (8-16) L 09/02/18 06:00 BUN 49 mg/dL (7-18) H 09/02/18 06:00 Creatinine 1.4 mg/dL (0.55-1.3) H 09/02/18 06:00 Creat Clearance w eGFR 47.94 (>60) 09/02/18 06:00 Random Glucose 84 mg/dL (74-106) 09/02/18 06:00 Calcium 7.1 mg/dL (8.5-10.1) L 09/02/18 06:00 Total Bilirubin 0.4 mg/dL (0.2-1) 09/01/18 06:00 AST 11 U/L (15-37) L 09/01/18 06:00 ALT 11 U/L (13-61) L 09/01/18 06:00 Alkaline Phosphatase 79 U/L (45-117) 09/01/18 06:00 Total Protein 4.6 g/dl (6.4-8.2) L 09/01/18 06:00 Albumin 1.4 g/dl (3.4-5.0) L 09/01/18 06:00 CARDIAC ENZYMES Creatine Kinase 64 IU/L (26-308) 08/15/18 05:30 Troponin I 0.05 ng/ml (0.00-0.05) 08/15/18 05:[address] head Impression. No evidence of acute intracranial hemorrhage, edema, midline shift, mass effect , or skull fracture. No CT evidence of acute territorial infarction. CT c spine Impression. No acute bony abnormalities are seen. Intact odontoid. The predental space is not widened. Multilevel cervical spondylosis. Facet joint arthropathy. Osteoarthritis of uncovertebral joints. 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 Pt reported not feeling well for few days prior to admission. ED note indicated he had been feeling weak and lightheaded for the past week and has had multiple times where he needed to sit down to rest. On day prior to admission, he had an episode of passing out while standing after feeling lightheaded and weak. Unclear how long he had LOC. Of note, pt was evaluated here in the ED on 08/08 for hematuria and signed out AMA when admission was recommended due to low BP. He had a chamberlain catheter in place from home which was draining bloody urine. I was consulted for alerted mental status. Infection improved Renal function improved Monitor bp, maintain normotensive range Urology follow up, status post clot evacuation Monitor hematuria, H/H, maintain normal range IV/PO hydration DVT ppx Neurologically stable Mental status at baseline Plan for SNF placement
--- NOTE | 2018-09-02 09:20 | PN ---
Progress Note, Physician - Current Medication List Current Medications: Active Medications Acetaminophen (Tylenol -) 650 mg PO Q4H PRN PRN Reason: PAIN Last Admin: 09/01/18 23:02 Dose: 650 mg Acetaminophen (Tylenol -) 650 mg PO Q4H PRN PRN Reason: FEVER Allopurinol (Zyloprim -) 100 mg PO DAILY [facility] Last Admin: 09/01/18 09:56 Dose: 100 mg Amino Acids (Prosource No Carb Liquid Pkt) 30 ml PO BID@0800,1730 [facility] Last Admin: 09/01/18 17:04 Dose: 30 ml Apixaban (Eliquis -) 2.5 mg PO BID [facility] Last Admin: 09/01/18 21:09 Dose: 2.5 mg Atorvastatin Calcium (Lipitor -) 20 mg PO HS [facility] Last Admin: 09/01/18 21:09 Dose: 20 mg Diltiazem HCl (Cardizem Cd -) 180 mg PO DAILY [facility] Last Admin: 09/01/18 09:11 Dose: Not Given Diltiazem HCl (Cardizem Injection -) 10 mg IVPUSH Q4H PRN PRN Reason: HR >110 BPM Docusate Sodium (Colace -) 300 mg PO HS [facility] Last Admin: 09/01/18 21:09 Dose: Not Given Furosemide (Lasix -) 40 mg PO DAILY@1400 [facility] Last Admin: 09/01/18 14:16 Dose: Not Given Furosemide (Lasix -) 80 mg PO DAILY@0600 [facility] Last Admin: 09/02/18 05:12 Dose: 80 mg Metoprolol Tartrate (Lopressor -) 25 mg PO TID [facility] Last Admin: 09/02/18 05:12 Dose: 25 mg Pantoprazole Sodium (Protonix -) 40 mg PO DAILY [facility] Last Admin: 09/01/18 09:56 Dose: 40 mg Phenazopyridine HCl (Pyridium -) 100 mg PO TID PRN PRN Reason: bladder spasm Last Admin: 08/29/18 14:08 Dose: 100 mg - Objective Vital Signs: Vital Signs Temperature 97 F L 09/02/18 08:44 Pulse Rate 107 H 09/02/18 08:44 Respiratory Rate 20 09/02/18 08:44 Blood Pressure 102/61 09/02/18 08:44 O2 Sat by Pulse Oximetry (%) 98 09/01/18 21:00 Cardiovascular: Yes: S1, S2 Respiratory: Yes: Regular, CTA Bilaterally Gastrointestinal: Yes: Normal Bowel Sounds, Soft Labs: CBC, BMP 09/02/18 06:00 09/02/18 06:00 INR, PTT INR 1.12 (0.83-1.09) H 08/16/18 07:30 Problem List - Problems (1) Anemia Assessment/Plan: - anemia, likely due to hematuria - monitor closely, transfused prbc Code(s): D64.9 - ANEMIA, UNSPECIFIED Qualifiers: Anemia type: other cause Other causes of anemia: antineoplastic chemotherapy Qualified Code(s): D64.81 - Anemia due to antineoplastic chemotherapy; T45.1X5A - Adverse effect of antineoplastic and immunosuppressive drugs, initial encounter (2) Afib Assessment/Plan: -ac per cardio Code(s): I48.91 - UNSPECIFIED ATRIAL FIBRILLATION Qualifiers: Atrial fibrillation type: chronic Qualified Code(s): I48.2 - Chronic atrial fibrillation (3) Chronic kidney disease (CKD) Assessment/Plan: - baseline cr 1.5 - nephrology consult Code(s): N18.9 - CHRONIC KIDNEY DISEASE, UNSPECIFIED Qualifiers: Chronic kidney disease stage: stage 3 (moderate) Qualified Code(s): N18.3 - Chronic kidney disease, stage 3 (moderate) (4) Chronic lymphocytic leukemia (CLL), B-cell Code(s): C91.10 - CHRONIC LYMPHOCYTIC LEUK OF B-CELL TYPE NOT ACHIEVE REMIS Qualifiers: Leukemia Active/Remission status: in remission Qualified Code(s): C91.11 - Chronic lymphocytic leukemia of B-cell type in remission Assessment/Plan - Problems (1) Afib Assessment/Plan: -Eliquis restarted -Monitor H/H -tele monitoring- uncontrolled afib- rate improved, still consistently above 110 -Cardizem SA D/C'd -Started on Cardizem CD 180 mg po daily -lopressor to 25 mg po TID -Cardiology on board Code(s): I48.91 - UNSPECIFIED ATRIAL FIBRILLATION Qualifiers: Atrial fibrillation type: chronic Qualified Code(s): I48.2 - Chronic atrial fibrillation (2) Anemia Assessment/Plan: 2/2 to hematuria Eliquis restarted -monitor daily labs -Hematology consult -Transfuse if Hg <7.0 Code(s): D64.9 - ANEMIA, UNSPECIFIED Qualifiers: Anemia type: other cause Other causes of anemia: antineoplastic chemotherapy Qualified Code(s): D64.81 - Anemia due to antineoplastic chemotherapy; T45.1X5A - Adverse effect of antineoplastic and immunosuppressive drugs, initial encounter (3) Chronic kidney disease (CKD) Assessment/Plan: at baseline now -monitor trend -U/S renal/bladder left hydronephrosis -s/p cystoscopy Code(s): N18.9 - CHRONIC KIDNEY DISEASE, UNSPECIFIED Qualifiers: Chronic kidney disease stage: stage 3 (moderate) Qualified Code(s): N18.3 - Chronic kidney disease, stage 3 (moderate) (4) Chronic lymphocytic leukemia (CLL), B-cell Code(s): C91.10 - CHRONIC LYMPHOCYTIC LEUK OF B-CELL TYPE NOT ACHIEVE REMIS Qualifiers: Leukemia Active/Remission status: in remission Qualified Code(s): C91.11 - Chronic lymphocytic leukemia of B-cell type in remission (5) Hematuria Assessment/Plan: -chamberlain cath-light pink urine -urology consult -UC negative -Had Cystoscopy: Operative Date: 08/25/18 Pre-Operative Diagnosis: Hematuria Operation: Cysto clot evacuation and chamberlain placement Findings: Bladder filled with clots. Active bleeding noted from the prostate Prostate is moderately obstructive. Ureteral orifices normally located with clear efflux Post-Operative Diagnosis: Same as Pre-op Surgeon: Mila Wise S -pt will be discharged when ready with FC and if medically stable outpatient, Urology will consider TURS Code(s): R31.9 - HEMATURIA, UNSPECIFIED Qualifiers: Hematuria type: gross Qualified Code(s): R31.0 - Gross hematuria (6) Assessment/Plan: -Seen by Psychiatry -alert and oriented x 3, periods of confusion -Remeron 7.5 mg po HS Code(s): F05 - DELIRIUM DUE TO KNOWN PHYSIOLOGICAL CONDITION (7) Metabolic encephalopathy Assessment/Plan: -multifactorial -much improved Code(s): G93.41 - METABOLIC ENCEPHALOPATHY (8) Dysphagia Assessment/Plan: -speech consult -Failed MBS -ENT consult placed -pureed diet with nectar thick liquids -Crush all medication, give with nectar thick liquids -Added Ensure -Keep HOB elevated during and after meals for at least 2 hours Code(s): R13.10 - DYSPHAGIA, UNSPECIFIED (9) Abdominal pain Assessment/Plan: -abdominal US done- unremarkable -On Pantoprazole -Added Colace 300 mg po HS for constipation Code(s): R10.9 - UNSPECIFIED ABDOMINAL PAIN Qualifiers: Abdominal location: lower abdomen, unspecified Qualified Code(s): R10.30 - Lower abdominal pain, unspecified (10) Bladder spasm Assessment/Plan: -pyridium 100mg tab po tid prn Code(s): N32.89 - OTHER SPECIFIED DISORDERS OF BLADDER (11) Hypoalbuminemia Assessment/Plan: -add prosource BID Code(s): E88.09 - OTH DISORDERS OF PLASMA-PROTEIN METABOLISM, NEC (12) Pneumoperitoneum Assessment/Plan: Surgical consult noted and appreciated Monitor per surgery Incidentally noted on chest CT today done for dysphagia Pt HD stable, comfortable, without acute abdomen and tolerated pureed dinner after CT scan Abdominal pain from yesterday is better today, per patient, and he is minimally tender and minimally distended, if at all Pt with multiple high risk factors for surgical morbidity/mortality, including very low albumin, active anticoagulation, not NPO, advanced age, immunocompromise, as well as multiple medical problems Surgical intervention in this particular case may be urgent, but is not emergent Discussed with patient and nephew at bedside what surgery would involve - laparotomy to look for source of pneumoperitoneum; if hole in stomach, could be patched; if hole in small intestine, could be resected and reconnected; if hole in colon, could result in resection and likely colostomy, which could end up being permanent. He is at high risk for complications, and would likely be in ICU postoperatively, and may not survive surgery, even if not right away. If surgery is not done, since we do not know where the perforation is or whether it may have sealed over, he could do well with observation, or he could continue to leak abdominal contents and get sicker, progressing to sepsis and even possibly dying. The patient requests that I speak with Dr. West, and also with Dr. Blank, who did his surgery in January, if possible. His nephew indicates that he is the patient's proxy. I called and left message for Dr. West and am awaiting call back. Also spoke with Zuleyma [place], [employer]. Will get CT abd/pelvis without contrast to better characterize intraabdominal process Further recommendations to follow pending above Code(s): K66.8 - OTHER SPECIFIED DISORDERS OF PERITONEUM
[2018-09-02] MEDS: AMINO ACIDS/PROTEIN HYDROLYS 30 ML LIQUID.PKT PO SCH ×2 (09:33→17:35)
[2018-09-02] MEDS: PANTOPRAZOLE 40 MG TABLET (FP) PO SCH (09:34)
[2018-09-02] MEDS: ALLOPURINOL 100 MG TABLET (FP) PO SCH (09:34)
[2018-09-02] MEDS: APIXABAN 2.5 MG TABLET PO SCH ×2 (09:34→21:54)
--- NOTE | 2018-09-02 10:10 | PN ---
Progress Note, Physician Chief Complaint: Events noted Not in distress History of Present Illness: Patient was seen and examined. Awake and alert. Chart was reviewed Denies chest pain, SOB or palpitations - Current Medication List Current Medications: Active Medications Acetaminophen (Tylenol -) 650 mg PO Q4H PRN PRN Reason: PAIN Last Admin: 09/01/18 23:02 Dose: 650 mg Acetaminophen (Tylenol -) 650 mg PO Q4H PRN PRN Reason: FEVER Allopurinol (Zyloprim -) 100 mg PO DAILY [facility] Last Admin: 09/02/18 09:34 Dose: 100 mg Amino Acids (Prosource No Carb Liquid Pkt) 30 ml PO BID@0800,1730 [facility] Last Admin: 09/02/18 09:33 Dose: 30 ml Apixaban (Eliquis -) 2.5 mg PO BID [facility] Last Admin: 09/02/18 09:34 Dose: 2.5 mg Atorvastatin Calcium (Lipitor -) 20 mg PO [facility] Last Admin: 09/01/18 21:09 Dose: 20 mg Diltiazem HCl (Cardizem Cd -) 180 mg PO DAILY [facility] Last Admin: 09/02/18 09:34 Dose: 180 mg Diltiazem HCl (Cardizem Injection -) 10 mg IVPUSH Q4H PRN PRN Reason: HR >110 BPM Docusate Sodium (Colace -) 300 mg PO HS [facility] Last Admin: 09/01/18 21:09 Dose: Not Given Furosemide (Lasix -) 40 mg PO DAILY@1400 [facility] Last Admin: 09/01/18 14:16 Dose: Not Given Furosemide (Lasix -) 80 mg PO DAILY@0600 [facility] Last Admin: 09/02/18 05:12 Dose: 80 mg Metoprolol Tartrate (Lopressor -) 25 mg PO TID [facility] Last Admin: 09/02/18 05:12 Dose: 25 mg Pantoprazole Sodium (Protonix -) 40 mg PO DAILY [facility] Last Admin: 09/02/18 09:34 Dose: 40 mg Phenazopyridine HCl (Pyridium -) 100 mg PO TID PRN PRN Reason: bladder spasm Last Admin: 08/29/18 14:08 Dose: 100 mg - Objective Vital Signs: Vital Signs Temperature 97 F L 09/02/18 08:44 Pulse Rate 107 H 09/02/18 08:44 Respiratory Rate 20 10/16/18 08:44 Blood Pressure 102/61 09/02/18 08:44 O2 Sat by Pulse Oximetry (%) 97 09/02/18 09:39 HENT: Yes: Atraumatic Neck: Yes: Supple Cardiovascular: Yes: Pulse Irregular, Murmur (Soft SM), S1, S2 Respiratory: Yes: CTA Bilaterally Gastrointestinal: Yes: Normal Bowel Sounds, Soft. No: Tenderness Edema: No Additional Findings/Remarks: Review of Systems HEENT:denies headache, photophobia, blurring of vision Cardiovascular: denies chest pain, SOB, palpitations Respiratory: denies Cough, Sputum Production Gastrointestinal: denies: Nausea, Vomiting, Diarrhea, Constipation or Abdominal Discomfort Musculoskeletal: denies joint pains Endocrine: No Symptoms Reported Neuro: denies seizure, syncope Labs: CBC, BMP 09/02/18 06:00 09/02/18 06:00 Problem List - Problems (1) Syncope Code(s): R55 - SYNCOPE AND COLLAPSE Qualifiers: Syncope type: vasovagal syncope Qualified Code(s): R55 - Syncope and collapse (2) Acute ischemic colitis Code(s): K55.039 - ACUTE ISCHEMIA OF LARGE INTESTINE, EXTENT UNSPECIFIED (3) Afib Code(s): I48.91 - UNSPECIFIED ATRIAL FIBRILLATION Qualifiers: Atrial fibrillation type: chronic Qualified Code(s): I48.2 - Chronic atrial fibrillation (4) Anemia Code(s): D64.9 - ANEMIA, UNSPECIFIED Qualifiers: Anemia type: other cause Other causes of anemia: antineoplastic chemotherapy Qualified Code(s): D64.81 - Anemia due to antineoplastic chemotherapy; T45.1X5A - Adverse effect of antineoplastic and immunosuppressive drugs, initial encounter (5) CLL (chronic lymphocytic leukemia) Code(s): C91.10 - CHRONIC LYMPHOCYTIC LEUK OF B-CELL TYPE NOT ACHIEVE REMIS (6) CVA (cerebrovascular accident) Code(s): I63.9 - CEREBRAL INFARCTION, UNSPECIFIED Qualifiers: CVA mechanism: embolism Precerebral and cerebral artery: middle cerebral artery, left (7) Chronic kidney disease (CKD) Code(s): N18.9 - CHRONIC KIDNEY DISEASE, UNSPECIFIED Qualifiers: Chronic kidney disease stage: stage 3 (moderate) Qualified Code(s): N18.3 - Chronic kidney disease, stage 3 (moderate) (8) Chronic lymphocytic leukemia (CLL), B-cell Code(s): C91.10 - CHRONIC LYMPHOCYTIC LEUK OF B-CELL TYPE NOT ACHIEVE REMIS Qualifiers: Leukemia Active/Remission status: in remission Qualified Code(s): C91.11 - Chronic lymphocytic leukemia of B-cell type in remission (9) Diverticulosis Code(s): K57.90 - DVRTCLOS OF INTEST, PART UNSP, W/O PERF OR ABSCESS W/O BLEED Qualifiers: Diverticulosis site: diverticulosis of small and large intestine Diverticulosis bleeding: diverticulosis without bleeding Qualified Code(s): K57.50 - Diverticulosis of both small and large intestine without perforation or abscess without bleeding (10) GIB (gastrointestinal bleeding) Code(s): K92.2 - GASTROINTESTINAL HEMORRHAGE, UNSPECIFIED Qualifiers: GI bleed type/associated pathology: unspecified gastrointestinal hemorrhage type Qualified Code(s): K92.2 - Gastrointestinal hemorrhage, unspecified (11) Hematuria Code(s): R31.9 - HEMATURIA, UNSPECIFIED Qualifiers: Hematuria type: gross Qualified Code(s): R31.0 - Gross hematuria (12) Hyperlipidemia Code(s): E78.5 - HYPERLIPIDEMIA, UNSPECIFIED Qualifiers: Hyperlipidemia type: pure hypercholesterolemia Qualified Code(s): E78.00 - Pure hypercholesterolemia, unspecified; E78.0 - Pure hypercholesterolemia (13) Sepsis Code(s): A41.9 - SEPSIS, UNSPECIFIED ORGANISM Qualifiers: Sepsis type: Escherichia coli Qualified Code(s): A41.51 - Sepsis due to Escherichia coli [E. coli] (14) Small bowel obstruction Code(s): K56.609 - UNSP INTESTNL OBST, UNSP TO PARTIAL VERSUS COMPLETE OBST (15) TIA (transient ischemic attack) Code(s): G45.9 - TRANSIENT CEREBRAL ISCHEMIC ATTACK, UNSPECIFIED Qualifiers: Transient cerebral ischemia type: unspecified Qualified Code(s): G45.9 - Transient cerebral ischemic attack, unspecified Assessment/Plan 1. Post op cystoscopy clot evacuation and chamberlain placement for persistent hematuria currently improved 2. Syncope in setting of anemia and intravascular volume depletion from overdiuresis 3. Asymptomatic pneumo-peritoneum 4. Anemia received PRBC with h/o GI bleed related to ischemic colitis, angiodysplasias of the stomach and colon 5. CAD angina pectoris, stable 6. Acute on chronic diastolic heart failure 7. Persistent atrial fibrillation with RVR [id number] score of 6 8. History of CVA/TIA 9. HTN 10. Hypercholesterolemia 11. 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 History of recurrent diverticular bleed 13. Acute on CKD (pre-renal) referable to volume depletion from overdiuresis, chronic mild-moderate left hydronephrosis 14. 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 Continue Eliquis 2.5 BID as hematuria has resolved, continue Metoprolol 25 TID, Cardizem 180 QD and Lipitor 20 QHS 2. Transfuse to maintain Hgb equal or > 8.0 3. Lasix 80/40 qd with monitor renal function and electrolytes 4. Completed empiric antibiotic course 5. Observation for asymptomatic pneumo-peritoneum given multiple co-morbidities Further plans are to follow. Follow up in office. Juan Durán MD
--- NOTE | 2018-09-02 11:17 | PN ---
Progress Note, MANAGER DATABASE ADMINISTRATION - Note Progress Note: Selected Entries 09/01/18 09/01/18 09/01/18 02:00 06:00 08:25 Breakfast 100% Supper Temperature 97.9 F 98.6 F 09/01/18 09/01/18 09/01/18 08:31 09:00 22:00 Breakfast 100% Supper Temperature 97.5 F L 97.8 F 09/01/18 09/02/18 09/02/18 23:51 02:00 06:02 Breakfast Supper 75% Temperature 97.8 F 98.7 F 09/02/18 09/02/18 08:44 11:00 Breakfast 100% Supper Temperature 97 F L Laboratory Tests 09/02/18 06:00 WBC 6.2 Continue compensatory swallowing recommendations and swallowing exercises. Plan is for d/c to [place] for STR.
--- NOTE | 2018-09-02 15:19 | PN ---
Progress Note (short form) - Note Progress Note: Renal follow up for JOON on CKD Pt seen and examined at the bedside awake and alert no acute complaints no abd pain, N/V/D Vital Signs Temperature 97.8 F 09/02/18 14:10 Pulse Rate 117 H 09/02/18 14:10 Respiratory Rate 18 09/02/18 14:10 Blood Pressure 109/60 09/02/18 14:10 O2 Sat by Pulse Oximetry (%) 97 09/02/18 09:39 Intake & Output 08/30/18 08/31/18 09/01/18 09/02/18 23:59 23:59 23:59 23:59 Intake Total 1050 2284 784 240 Output Total 3800 1950 1650 300 Balance -2750 334 -866 -60 NAD confused No LE edema chamberlian with bloody urine CBC, BMP 09/02/18 06:00 09/02/18 06:00 Current Medications Acetaminophen (Tylenol -) 650 mg PO Q4H PRN PRN Reason: PAIN Last Admin: 09/01/18 23:02 Dose: 650 mg Acetaminophen (Tylenol -) 650 mg PO Q4H PRN PRN Reason: FEVER Allopurinol (Zyloprim -) 100 mg PO DAILY [facility] Last Admin: 09/02/18 09:34 Dose: 100 mg Amino Acids (Prosource No Carb Liquid Pkt) 30 ml PO BID@0800,1730 [facility] Last Admin: 09/02/18 09:33 Dose: 30 ml Apixaban (Eliquis -) 2.5 mg PO BID [facility] Last Admin: 09/02/18 09:34 Dose: 2.5 mg Atorvastatin Calcium (Lipitor -) 20 mg PO HS [facility] Last Admin: 09/01/18 21:09 Dose: 20 mg Diltiazem HCl (Cardizem Cd -) 180 mg PO DAILY [facility] Last Admin: 09/02/18 09:34 Dose: 180 mg Diltiazem HCl (Cardizem Injection -) 10 mg IVPUSH Q4H PRN PRN Reason: HR >110 BPM Docusate Sodium (Colace -) 300 mg PO HS [facility] Last Admin: 09/01/18 21:09 Dose: Not Given Furosemide (Lasix -) 40 mg PO DAILY@1400 [facility] Last Admin: 09/02/18 13:58 Dose: 40 mg Furosemide (Lasix -) 80 mg PO DAILY@0600 [facility] Last Admin: 09/02/18 05:12 Dose: 80 mg Metoprolol Tartrate (Lopressor -) 25 mg PO TID [facility] Last Admin: 09/02/18 13:58 Dose: 25 mg Pantoprazole Sodium (Protonix -) 40 mg PO DAILY [facility] Last Admin: 09/02/18 09:34 Dose: 40 mg Phenazopyridine HCl (Pyridium -) 100 mg PO TID PRN PRN Reason: bladder spasm Last Admin: 08/29/18 14:08 Dose: 100 mg 87 year old gentleman known to our service with 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 #Syncope #JOON secondary to volume depletion +/- bladder outlet obstruction #Lactic acidosis (now resolved) #Leukocytosis #Urinary retention with chronic chamberlain #Hx of LE edema #Hematuria #Hypernatremia #Pneumoperitonieum Renal function stable BP is improved continue BID lasix Surgical follow up discharge planning as per primary Peewee Torres DO
[2018-09-02] MEDS: ATORVASTATIN CA 20 MG TABLET (FP) PO SCH (21:54)
[2018-09-02] MEDS: DOCUSATE SODIUM 100 MG CAPSULE (FP) PO SCH (21:54)
[2018-09-02] MEDS: ACETAMINOPHEN 325 MG TABLET (FP) PO PRN (21:56)
[2018-09-03] MEDS: FUROSEMIDE 40 MG TABLET (FP) PO SCH ×2 (06:11→13:52)
[2018-09-03] MEDS: METOPROLOL TARTRATE 25 MG TABLET (FP) PO SCH ×3 (06:11→21:40)
[2018-09-03 08:06] LABS: SERUM IRON SATURATION 25 % (15-55); TOTAL IRON BINDING CAPACITY 151 ug/dL (250-450); UIBC 114 ug/dL (111-343)
--- NOTE | 2018-09-03 08:54 | PN ---
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 Pt reported not feeling well for few days prior to admission. ED note indicated he had been feeling weak and lightheaded for the past week and has had multiple times where he needed to sit down to rest. On day prior to admission, he had an episode of passing out while standing after feeling lightheaded and weak. Unclear how long he had LOC. Of note, pt was evaluated here in the ED on 08/08 for hematuria and signed out AMA when admission was recommended due to low BP. I was consulted for altered mental status. CT head completed and reviewed and no acute changes. Degenerative subluxation of C7 in relation to T1, C6 on C spine CT. Completed urology procedure 08/25, cysto clot evacuation per notes reviewed. Is awake, alert, knows he's in hospital. Is being planned for SNF at this time. Neurologically no acute events and has been stable. Is aggrevated that he's still here and wants to leave hospital. States he's been here three weeks now. Tried to provide reassurance that staff was trying to provide safe discharge. Mental status is intact. Active Medications Acetaminophen (Tylenol -) 650 mg PO Q4H PRN PRN Reason: PAIN Last Admin: 09/02/18 21:56 Dose: 650 mg Acetaminophen (Tylenol -) 650 mg PO Q4H PRN PRN Reason: FEVER Allopurinol (Zyloprim -) 100 mg PO DAILY [facility] Last Admin: 09/02/18 09:34 Dose: 100 mg Amino Acids (Prosource No Carb Liquid Pkt) 30 ml PO BID@0800,1730 [facility] Last Admin: 09/02/18 17:35 Dose: 30 ml Apixaban (Eliquis -) 2.5 mg PO BID [facility] Last Admin: 09/02/18 21:54 Dose: 2.5 mg Atorvastatin Calcium (Lipitor -) 20 mg PO HS [facility] Last Admin: 09/02/18 21:54 Dose: 20 mg Diltiazem HCl (Cardizem Cd -) 180 mg PO DAILY [facility] Last Admin: 09/02/18 09:34 Dose: 180 mg Diltiazem HCl (Cardizem Injection -) 10 mg IVPUSH Q4H PRN PRN Reason: HR >110 BPM Docusate Sodium (Colace -) 300 mg PO HS [facility] Last Admin: 09/02/18 21:54 Dose: Not Given Furosemide (Lasix -) 40 mg PO DAILY@1400 [facility] Last Admin: 09/02/18 13:58 Dose: 40 mg Furosemide (Lasix -) 80 mg PO DAILY@0600 [facility] Last Admin: 09/03/18 06:11 Dose: 80 mg Metoprolol Tartrate (Lopressor -) 25 mg PO TID [facility] Last Admin: 09/03/18 06:11 Dose: 25 mg Pantoprazole Sodium (Protonix -) 40 mg PO DAILY [facility] Last Admin: 09/02/18 09:34 Dose: 40 mg Phenazopyridine HCl (Pyridium -) 100 mg PO TID PRN PRN Reason: bladder spasm Last Admin: 08/29/18 14:08 Dose: 100 mg PHYSICAL EXAMINATION Vital Signs Period Temp Pulse Resp BP Sys/Gerardo Pulse Ox Last 24 Hr 97.3 F-98.3 F 95-117 16-20 88-109/51-60 97-97 GENERAL: Awake, alert, in no acute distress. HEAD: ecchymosis and abrasion left forehead, hematoma around left eye. abrasion below left eye EYES: Pupils equal, round and reactive to light, extraocular movements intact, sclera anicteric, conjunctiva clear. No lid lag. EARS, NOSE, THROAT: Ears normal, nares patent, oropharynx clear without exudates. Moist mucous membranes. NECK: Normal range of motion, supple without lymphadenopathy, JVD, or masses. LUNGS: Breath sounds equal, clear to auscultation bilaterally. No wheezes, and no crackles. No accessory muscle use. HEART: Regular rate and rhythm, normal S1 and S2 without murmur, rub or gallop. ABDOMEN: Soft, nontender, not distended, normoactive bowel sounds, no guarding, no rebound, no masses. No hepatomegaly or splenomegaly. chamberlain draining bloody urine MUSCULOSKELETAL: Normal range of motion at all joints. No bony deformities or tenderness. No CVA tenderness. UPPER EXTREMITIES: 2+ pulses, warm, well-perfused. No cyanosis. No clubbing. No peripheral edema. LOWER EXTREMITIES: 2+ pulses, warm, well-perfused. No calf tenderness. No peripheral edema. chronic vascular skin changes B/L LE: darkened, hypertrophic skin. NEUROLOGICAL: Awake, alert, dysarthric, sensory intact, moving extremities grossly, gait deferred PSYCHIATRIC: Cooperative. Good eye contact. Appropriate mood and affect. SKIN: Warm, dry, normal turgor, no rashes or lesions noted, normal capillary refill. CBCD WBC 6.2 K/mm3 (4.0-10.0) 09/02/18 06:00 RBC 2.51 M/mm3 (4.00-5.60) L 09/02/18 06:00 Hgb 7.7 GM/dL (11.7-16.9) L 09/02/18 06:00 Hct 23.3 % (35.4-49) L 09/02/18 06:00 MCV 93.1 fl (80-96) 09/02/18 06:00 MCHC 32.9 g/dl (32.0-35.9) 09/02/18 06:00 RDW 17.8 % (11.9-15.9) H 09/02/18 06:00 Plt Count 150 K/MM3 (134-434) 09/02/18 06:00 MPV 10.1 fl (7.5-11.1) 09/02/18 06:00 CMP Sodium 141 mmol/L (136-145) 09/02/18 06:00 Potassium 3.9 mmol/L (3.5-5.1) 09/02/18 06:00 Chloride 104 mmol/L (98-107) 09/02/18 06:00 Carbon Dioxide 34 mmol/L (21-32) H 09/02/18 06:00 Anion Gap 4 MMOL/L (8-16) L 09/02/18 06:00 BUN 49 mg/dL (7-18) H 09/02/18 06:00 Creatinine 1.4 mg/dL (0.55-1.3) H 09/02/18 06:00 Creat Clearance w eGFR 47.94 (>60) 09/02/18 06:00 Random Glucose 84 mg/dL (74-106) 09/02/18 06:00 Calcium 7.1 mg/dL (8.5-10.1) L 09/02/18 06:00 Total Bilirubin 0.4 mg/dL (0.2-1) 09/01/18 06:00 AST 11 U/L (15-37) L 09/01/18 06:00 ALT 11 U/L (13-61) L 09/01/18 06:00 Alkaline Phosphatase 79 U/L (45-117) 09/01/18 06:00 Total Protein 4.6 g/dl (6.4-8.2) L 09/01/18 06:00 Albumin 1.4 g/dl (3.4-5.0) L 09/01/18 06:00 CARDIAC ENZYMES Creatine Kinase 64 IU/L (26-308) 08/15/18 05:30 Troponin I 0.05 ng/ml (0.00-0.05) 08/15/18 05:[address] head Impression. No evidence of acute intracranial hemorrhage, edema, midline shift, mass effect , or skull fracture. No CT evidence of acute territorial infarction. CT c spine Impression. No acute bony abnormalities are seen. Intact odontoid. The predental space is not widened. Multilevel cervical spondylosis. Facet joint arthropathy. Osteoarthritis of uncovertebral joints. 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 Pt reported not feeling well for few days prior to admission. ED note indicated he had been feeling weak and lightheaded for the past week and has had multiple times where he needed to sit down to rest. On day prior to admission, he had an episode of passing out while standing after feeling lightheaded and weak. Unclear how long he had LOC. Of note, pt was evaluated here in the ED on 08/08 for hematuria and signed out AMA when admission was recommended due to low BP. He had a chamberlain catheter in place from home which was draining bloody urine. I was consulted for alerted mental status. Infection improved Renal function improved Monitor bp, maintain normotensive range Urology follow up, status post clot evacuation Monitor hematuria, H/H, maintain normal range IV/PO hydration DVT ppx Neurologically stable Mental status at baseline Plan for SNF placement
[2018-09-03] MEDS: AMINO ACIDS/PROTEIN HYDROLYS 30 ML LIQUID.PKT PO SCH ×2 (09:51→17:01)
[2018-09-03] MEDS: APIXABAN 2.5 MG TABLET PO SCH ×2 (09:53→21:40)
[2018-09-03] MEDS: ALLOPURINOL 100 MG TABLET (FP) PO SCH (09:53)
[2018-09-03] MEDS: PANTOPRAZOLE 40 MG TABLET (FP) PO SCH (09:53)
--- NOTE | 2018-09-03 10:17 | PN ---
Progress Note, AUDIO TAPE LIBRARIAN - Note Progress Note: Selected Entries 09/01/18 09/01/18 09/01/18 02:00 06:00 08:25 Breakfast 100% Supper Temperature 97.9 F 98.6 F 09/01/18 09/01/18 09/01/18 08:31 09:00 22:00 Breakfast 100% Supper Temperature 97.5 F L 97.8 F 09/01/18 09/02/18 09/02/18 23:51 02:00 06:02 Breakfast Supper 75% Temperature 97.8 F 98.7 F 09/02/18 09/02/18 08:44 11:00 Breakfast 100% Supper Temperature 97 F L Laboratory Tests 09/02/18 06:00 WBC 6.2 Selected Entries 09/02/18 09/02/18 09/02/18 02:00 06:02 08:44 Breakfast Lunch Supper Temperature 97.8 F 98.7 F 97 F L 09/02/18 09/02/18 09/02/18 11:00 14:10 16:30 Breakfast 100% Lunch 75% Supper Temperature 97.8 F 98.3 F 09/02/18 09/02/18 09/03/18 21:00 22:55 02:00 Breakfast Lunch Supper 50% Temperature 98.1 F 97.3 F L 09/03/18 06:00 Breakfast Lunch Supper Temperature 97.4 F L Laboratory Tests 09/02/18 06:00 WBC 6.2 Continue compensatory swallowing recommendations and swallowing exercises. Plan is for d/c to [facility] for STR.
--- NOTE | 2018-09-03 11:05 | PN ---
Progress Note, Physician History of Present Illness: Hematuria cleared and Eliquis resumed, HR control improved with addition of Cardizem, asymptomatic pneumoperitoneum being observed, sensorium is at baseline , ambulating with PT and walker assistance. - Current Medication List Current Medications: Active Medications Acetaminophen (Tylenol -) 650 mg PO Q4H PRN PRN Reason: PAIN Last Admin: 09/02/18 21:56 Dose: 650 mg Acetaminophen (Tylenol -) 650 mg PO Q4H PRN PRN Reason: FEVER Allopurinol (Zyloprim -) 100 mg PO DAILY [facility] Last Admin: 09/03/18 09:53 Dose: 100 mg Amino Acids (Prosource No Carb Liquid Pkt) 30 ml PO BID@0800,1730 [facility] Last Admin: 09/03/18 09:51 Dose: 30 ml Apixaban (Eliquis -) 2.5 mg PO BID [facility] Last Admin: 09/03/18 09:53 Dose: 2.5 mg Atorvastatin Calcium (Lipitor -) 20 mg PO [facility] Last Admin: 09/02/18 21:54 Dose: 20 mg Diltiazem HCl (Cardizem Cd -) 180 mg PO DAILY [facility] Last Admin: 09/03/18 09:50 Dose: 180 mg Diltiazem HCl (Cardizem Injection -) 10 mg IVPUSH Q4H PRN PRN Reason: HR >110 BPM Docusate Sodium (Colace -) 300 mg PO HS [facility] Last Admin: 09/02/18 21:54 Dose: Not Given Furosemide (Lasix -) 40 mg PO DAILY@1400 [facility] Last Admin: 09/02/18 13:58 Dose: 40 mg Furosemide (Lasix -) 80 mg PO DAILY@0600 [facility] Last Admin: 09/03/18 06:11 Dose: 80 mg Metoprolol Tartrate (Lopressor -) 25 mg PO TID [facility] Last Admin: 09/03/18 06:11 Dose: 25 mg Pantoprazole Sodium (Protonix -) 40 mg PO DAILY [facility] Last Admin: 09/03/18 09:53 Dose: 40 mg Phenazopyridine HCl (Pyridium -) 100 mg PO TID PRN PRN Reason: bladder spasm Last Admin: 08/29/18 14:08 Dose: 100 mg - Objective Vital Signs: Vital Signs Temperature 97.4 F L 09/03/18 06:00 Pulse Rate 95 H 10/17/18 08:25 Respiratory Rate 18 09/03/18 08:25 Blood Pressure 93/60 09/03/18 08:25 O2 Sat by Pulse Oximetry (%) 97 09/02/18 21:00 Constitutional: Yes: No Distress, Calm, Thin Neck: Yes: Supple Cardiovascular: Yes: Pulse Irregular Respiratory: Yes: Regular, Diminished, On Nasal O2 Gastrointestinal: Yes: Normal Bowel Sounds, Soft Genitourinary: Yes: Chamberlain Present Edema: No Labs: CBC, BMP 09/02/18 06:00 09/02/18 06:00 INR, PTT INR 1.12 (0.83-1.09) H 08/16/18 07:30 - ....Imaging EKG: Report Reviewed (Tele: Rate-controlled afib) Problem List - Problems (1) Syncope Code(s): R55 - SYNCOPE AND COLLAPSE Qualifiers: Syncope type: vasovagal syncope Qualified Code(s): R55 - Syncope and collapse (2) Acute kidney injury Code(s): N17.9 - ACUTE KIDNEY FAILURE, UNSPECIFIED (3) Anemia due to blood loss, acute Code(s): D62 - ACUTE POSTHEMORRHAGIC ANEMIA (4) Atrial fibrillation with rapid ventricular response Code(s): I48.91 - UNSPECIFIED ATRIAL FIBRILLATION (5) Chronic lymphocytic leukemia (CLL), B-cell Code(s): C91.10 - CHRONIC LYMPHOCYTIC LEUK OF B-CELL TYPE NOT ACHIEVE REMIS Qualifiers: Leukemia Active/Remission status: in remission Qualified Code(s): C91.11 - Chronic lymphocytic leukemia of B-cell type in remission (6) Hyperlipidemia Code(s): E78.5 - HYPERLIPIDEMIA, UNSPECIFIED Qualifiers: Hyperlipidemia type: pure hypercholesterolemia Qualified Code(s): E78.00 - Pure hypercholesterolemia, unspecified; E78.0 - Pure hypercholesterolemia (7) Mesenteric infarction Code(s): K55.069 - ACUTE INFARCTION OF INTESTINE, PART AND EXTENT UNSPECIFIED (8) TIA (transient ischemic attack) Code(s): G45.9 - TRANSIENT CEREBRAL ISCHEMIC ATTACK, UNSPECIFIED Qualifiers: Transient cerebral ischemia type: unspecified Qualified Code(s): G45.9 - Transient cerebral ischemic attack, unspecified (9) Urinary hesitancy Code(s): R39.11 - HESITANCY OF MICTURITION (10) Weakness due to cerebrovascular accident (CVA) Code(s): I63.9 - CEREBRAL INFARCTION, UNSPECIFIED; R53.1 - WEAKNESS (11) Acute on chronic diastolic heart failure Code(s): I50.33 - ACUTE ON CHRONIC DIASTOLIC (CONGESTIVE) HEART FAILURE (12) Pneumoperitoneum Code(s): K66.8 - OTHER SPECIFIED DISORDERS OF PERITONEUM Assessment/Plan Echo: 01/23/2018 Normal biventricular size and fxn, mild-mod TR, mild , mod LAE, mild HILTON 1. Post op day #8 post cysto clot evacuation and chamberlain placement, for hematuria since resolved 2. Syncope in setting of anemia and intravascular volume depletion from overdiuresis 3. Asymptomatic pneumoperitoneum w/o obvious perforation source 4. 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 CAD angina pectoris, stable 6. Acute on chronic diastolic heart failure 7. Persistent atrial fibrillation with RVR [id number] score of 6 on A/C now off DOAC's/Eliquis 8. History of CVA/TIA 9. HTN 10. Hypercholesterolemia 11. 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 History of recurrent diverticular bleed 13. Acute on CKD (pre-renal) referable to volume depletion from overdiuresis improving, chronic mild-moderate left hydronephrosis 14. 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 Continue Eliquis 2.5 BID as hematuria has resolved, continue Metoprolol 25 TID, Cardizem 180 QD and Lipitor 20 QHS 2. Transfuse to maintain Hgb equal or > 8.0 3. Lasix 80/40 qd with monitor renal function and electrolytes 4. Completed empiric antibiotic course 5. Observation for asymptomatic pneumo-peritoneum given multiple co-morbidities
--- NOTE | 2018-09-03 14:35 | PN ---
Progress Note, Physician Chief Complaint: Sepsis Hematuria Anemia History of Present Illness: NAD, very alert, oriented x 3 Indwelling chamberlain cath-light pink urine Seen by Urology s/p cystoscopy Renal fxn improving Pt at high risk for stroke Now with Pneumoperitoneum Tolerating PO intake mild hypotension Seen by nephrology and cardiology On tele mild drop in H/H - Current Medication List Current Medications: Active Medications Acetaminophen (Tylenol -) 650 mg PO Q4H PRN PRN Reason: PAIN Last Admin: 09/02/18 21:56 Dose: 650 mg Acetaminophen (Tylenol -) 650 mg PO Q4H PRN PRN Reason: FEVER Allopurinol (Zyloprim -) 100 mg PO DAILY [facility] Last Admin: 09/03/18 09:53 Dose: 100 mg Amino Acids (Prosource No Carb Liquid Pkt) 30 ml PO BID@0800,1730 [facility] Last Admin: 09/03/18 09:51 Dose: 30 ml Apixaban (Eliquis -) 2.5 mg PO BID [facility] Last Admin: 09/03/18 09:53 Dose: 2.5 mg Atorvastatin Calcium (Lipitor -) 20 mg PO HS [facility] Last Admin: 09/02/18 21:54 Dose: 20 mg Darbepoetin Simeon (Aranesp -) 25 mcg SQ ONCE ONE Stop: 09/03/18 15:01 Diltiazem HCl (Cardizem Cd -) 180 mg PO DAILY [facility] Last Admin: 09/03/18 09:50 Dose: 180 mg Diltiazem HCl (Cardizem Injection -) 10 mg IVPUSH Q4H PRN PRN Reason: HR >110 BPM Docusate Sodium (Colace -) [address] [facility] Last Admin: 09/02/18 21:54 Dose: Not Given Furosemide (Lasix -) 40 mg PO DAILY@1400 [facility] Last Admin: 09/03/18 13:52 Dose: 40 mg Furosemide (Lasix -) 80 mg PO DAILY@0600 [facility] Last Admin: 09/03/18 06:11 Dose: 80 mg Metoprolol Tartrate (Lopressor -) 25 mg PO TID [facility] Last Admin: 09/03/18 13:52 Dose: 25 mg Pantoprazole Sodium (Protonix -) 40 mg PO DAILY [facility] Last Admin: 09/03/18 09:53 Dose: 40 mg Phenazopyridine HCl (Pyridium -) 100 mg PO TID PRN PRN Reason: bladder spasm Last Admin: 08/29/18 14:08 Dose: 100 mg - Objective Vital Signs: Vital Signs Temperature 97.4 F L 09/03/18 10:00 Pulse Rate 95 H 09/03/18 10:00 Respiratory Rate 18 09/03/18 10:00 Blood Pressure 90/47 L 09/03/18 10:00 O2 Sat by Pulse Oximetry (%) 97 09/02/18 21:00 Constitutional: Yes: Well Nourished, No Distress, Calm Cardiovascular: Yes: Pulse Irregular Respiratory: Yes: Regular Gastrointestinal: Yes: Normal Bowel Sounds, Soft, Distention (mild) Genitourinary: Yes: Chamberlain Present Musculoskeletal: Yes: WNL Extremities: Yes: WNL Edema: No Peripheral Pulses WNL: Yes Neurological: Yes: Alert, Oriented Psychiatric: Yes: Alert, Oriented Labs: CBC, BMP 09/02/18 06:00 09/02/18 06:00 INR, PTT INR 1.12 (0.83-1.09) H 08/16/18 07:30 Problem List - Problems (1) Afib Assessment/Plan: -On Eliquis -Monitor H/H -tele monitoring- uncontrolled afib- rate improved -Cardizem SA D/C'd -Started on Cardizem CD 180 mg po daily -lopressor to 25 mg po TID -Cardiology on board Code(s): I48.91 - UNSPECIFIED ATRIAL FIBRILLATION Qualifiers: Atrial fibrillation type: chronic Qualified Code(s): I48.2 - Chronic atrial fibrillation (2) Anemia Assessment/Plan: 2/2 to hematuria -Eliquis restarted -Hg-7.7 today -transfuse if Hg below 7.0, as patient is chronically anemic -monitor daily labs -Hematology consult Code(s): D64.9 - ANEMIA, UNSPECIFIED Qualifiers: Anemia type: other cause Other causes of anemia: antineoplastic chemotherapy Qualified Code(s): D64.81 - Anemia due to antineoplastic chemotherapy; T45.1X5A - Adverse effect of antineoplastic and immunosuppressive drugs, initial encounter (3) Chronic kidney disease (CKD) Assessment/Plan: at baseline now -monitor trend -U/S renal/bladder left hydronephrosis -s/p cystoscopy Code(s): N18.9 - CHRONIC KIDNEY DISEASE, UNSPECIFIED Qualifiers: Chronic kidney disease stage: stage 3 (moderate) Qualified Code(s): N18.3 - Chronic kidney disease, stage 3 (moderate) (4) Chronic lymphocytic leukemia (CLL), B-cell Code(s): C91.10 - CHRONIC LYMPHOCYTIC LEUK OF B-CELL TYPE NOT ACHIEVE REMIS Qualifiers: Leukemia Active/Remission status: in remission Qualified Code(s): C91.11 - Chronic lymphocytic leukemia of B-cell type in remission (5) Hematuria Assessment/Plan: -chamberlain cath -urology consult -UC negative -Had Cystoscopy: Operative Date: 08/25/18 Pre-Operative Diagnosis: Hematuria Operation: Cysto clot evacuation and chamberlain placement Findings: Bladder filled with clots. Active bleeding noted from the prostate Prostate is moderately obstructive. Ureteral orifices normally located with clear efflux Post-Operative Diagnosis: Same as Pre-op Surgeon: Mila Wise -pt will be discharged when ready with FC and if medically stable outpatient, Urology will consider TURS Code(s): R31.9 - HEMATURIA, UNSPECIFIED Qualifiers: Hematuria type: gross Qualified Code(s): R31.0 - Gross hematuria (6) Sundowning Assessment/Plan: -Seen by Psychiatry -alert and oriented x 3, periods of confusion -Remeron 7.5 mg po HS Code(s): F05 - DELIRIUM DUE TO KNOWN PHYSIOLOGICAL CONDITION (7) Metabolic encephalopathy Assessment/Plan: -multifactorial -much improved Code(s): G93.41 - METABOLIC ENCEPHALOPATHY (8) Dysphagia Assessment/Plan: -speech consult -Failed MBS -ENT consult -dysphagia pureed diet with nectar thick liquids -Crush all medication, give with nectar thick liquids -Added Ensure -Keep HOB elevated during and after meals for at least 2 hours Code(s): R13.10 - DYSPHAGIA, UNSPECIFIED (9) Abdominal pain Assessment/Plan: -2/2 to pneumoperitoneum -tolerating PO intake -Surgery on board -On Pantoprazole -Added Colace 300 mg po HS for constipation Code(s): R10.9 - UNSPECIFIED ABDOMINAL PAIN Qualifiers: Abdominal location: lower abdomen, unspecified Qualified Code(s): R10.30 - Lower abdominal pain, unspecified (10) Bladder spasm Assessment/Plan: -pyridium 100mg tab po tid prn Code(s): N32.89 - OTHER SPECIFIED DISORDERS OF BLADDER (11) Hypoalbuminemia Assessment/Plan: -add prosource BID Code(s): E88.09 - OTH DISORDERS OF PLASMA-PROTEIN METABOLISM, NEC (12) Protein calorie malnutrition Assessment/Plan: -Prosource BID -Ensure with meals Code(s): E46 - UNSPECIFIED PROTEIN-CALORIE MALNUTRITION (13) Pneumoperitoneum Assessment/Plan: -Seen by Surgery -No further increase in abdominal distention or pain -Tolerating po intake -Continue to monitor Code(s): K66.8 - OTHER SPECIFIED DISORDERS OF PERITONEUM Assessment/Plan see problem list Physical therapy
[2018-09-03] MEDS ORDERED: Darbepoetin Alfa in Polysorbat 25 MCG/0.4 ML DISP.SYRIN SQ ONE (15:00)
--- NOTE | 2018-09-03 15:16 | PN ---
Physical Exam: SUBJECTIVE: Patient seen and examined at bedside. No overnight events. No new complaints. Denies CP,DE [place] FUENTE, SOB, abdominal pain, nausea or vomiting. OBJECTIVE: Vital Signs Period Temp Pulse Resp BP Sys/Gerardo Pulse Ox Last 24 Hr 97.3 F-98.3 F 95-104 16-20 88-103/47-60 97 ENERAL:Awake and alert, NAD EYES: PERRLA,EOMI., sclera anicteric, conjunctiva clear. EARS, NOSE, THROAT: Moist mucous membranes. NECK: Supple without lymphadenopathy, JVD, or masses. LUNGS: CTAB. No wheezes, and no crackles. No accessory muscle use. HEART: Irregularly irregular, normal S1 and S2 without murmur, rub or gallop. ABDOMEN: Soft, NTND, NABS, no guarding, no rebound, no masses. No hepatomegaly or splenomegaly. UPPER EXTREMITIES: 2+ pulses, warm, well-perfused. No cyanosis. No clubbing. Cap refill No peripheral edema. LOWER EXTREMITIES: 2+ pulses, warm, well-perfused. No calf tenderness. No peripheral edema. NEUROLOGICAL: Cranial nerves II-XII intact. no facial droop. Normal speech. gait not observed. SKIN: multiple bruising on extremities. Laboratory Results - last 24 hr 09/01/18 09/03/18 14:45 11:48 POC Glucometer 150 Iron 37 L TIBC 151 L Iron Saturation 25 Active Medications Generic Name Dose Route Start Last Admin Trade Name Freq PRN Reason Stop Dose Admin Acetaminophen 650 mg 08/27/18 15:38 09/02/18 21:56 Tylenol - PO 650 mg Q4H PRN Administration PAIN Acetaminophen 650 mg 08/27/18 15:38 Tylenol - PO Q4H PRN FEVER Allopurinol 100 mg 08/26/18 11:15 09/03/18 09:53 Zyloprim - PO 100 mg DAILY CORNELIA Administration Amino Acids 30 ml 08/29/18 17:30 09/03/18 09:51 Prosource No Carb Liquid Pkt PO 30 ml BID@0800,1730 CORNELIA Administration Apixaban 2.5 mg 08/27/18 22:00 09/03/18 09:53 Eliquis - PO 2.5 mg BID CORNELIA Administration Atorvastatin Calcium 20 mg 08/26/18 22:00 09/02/18 21:54 Lipitor - PO 20 mg HS CORNELIA Administration Diltiazem HCl 180 mg 08/29/18 10:30 09/03/18 09:50 Cardizem Cd - PO 180 mg DAILY CORNELIA Administration Diltiazem HCl 10 mg 09/01/18 11:52 Cardizem Injection - IVPUSH Q4H PRN HR >110 BPM Docusate Sodium 300 mg 08/29/18 22:00 09/02/18 21:54 Colace - PO Not Given HS CORNELIA Furosemide 40 mg 09/01/18 11:38 09/03/18 13:52 Lasix - PO 40 mg DAILY@1400 CORNELIA Administration Furosemide 80 mg 09/01/18 11:38 09/03/18 06:11 Lasix - PO 80 mg DAILY@0600 CORNELIA Administration Metoprolol Tartrate 25 mg 08/26/18 15:55 09/03/18 13:52 Lopressor - PO 25 mg TID CORNELIA Administration Pantoprazole Sodium 40 mg 08/26/18 11:15 09/03/18 09:53 Protonix - PO 40 mg DAILY CORNELIA Administration Phenazopyridine HCl 100 mg 08/27/18 15:36 08/29/18 14:08 Pyridium - PO 100 mg TID PRN Administration bladder spasm ASSESSMENT/PLAN: 87 yo male with a significant past medical history of 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 Reyes at [facility]. * Imbruvica was held because may cause bleeding. * Patient has been instructed that he should see his oncologist as soon as possible. (2) Anemia (3) Syncope (4) Afib (5) Hematuria Visit type - Emergency Visit Emergency Visit: Yes ED Registration Date: 08/14/18 Care time: The patient presented to the Emergency Department on the above date and was hospitalized for further evaluation of their emergent condition. - New Patient This patient is new to me today: No - Critical Care Critical Care patient: No
--- NOTE | 2018-09-03 17:45 | PN ---
Progress Note (short form) - Note Progress Note: Renal follow up for JOON on CKD Pt seen and examined at the bedside no acute complaints no abd pain, sob, N/V/D making urine via chamberlain Vital Signs Temperature 97.9 F 09/03/18 14:00 Pulse Rate 104 H 09/03/18 14:00 Respiratory Rate 18 09/03/18 14:00 Blood Pressure 91/54 L 09/03/18 14:00 O2 Sat by Pulse Oximetry (%) 97 09/02/18 21:00 NAD confused No LE edema chamberlain with bloody urine CBC, BMP 09/02/18 06:00 09/02/18 06:00 Current Medications Acetaminophen (Tylenol -) 650 mg PO Q4H PRN PRN Reason: FEVER Allopurinol (Zyloprim -) 100 mg PO DAILY [facility] Last Admin: 09/03/18 09:53 Dose: 100 mg Amino Acids (Prosource No Carb Liquid Pkt) 30 ml PO BID@0800,1730 [facility] Last Admin: 09/03/18 17:01 Dose: 30 ml Apixaban (Eliquis -) 2.5 mg PO BID [facility] Last Admin: 09/03/18 09:53 Dose: 2.5 mg Atorvastatin Calcium (Lipitor -) 20 mg PO HS [facility] Last Admin: 09/02/18 21:54 Dose: 20 mg Diltiazem HCl (Cardizem Cd -) 180 mg PO DAILY [facility] Last Admin: 09/03/18 09:50 Dose: 180 mg Diltiazem HCl (Cardizem Injection -) 10 mg IVPUSH Q4H PRN PRN Reason: HR >110 BPM Diltiazem HCl (Cardizem -) 30 mg PO TID [facility] Docusate Sodium (Colace -) 300 mg PO HS [facility] Last Admin: 09/02/18 21:54 Dose: Not Given Furosemide (Lasix -) 40 mg PO DAILY@1400 [facility] Last Admin: 09/03/18 13:52 Dose: 40 mg Furosemide (Lasix -) 80 mg PO DAILY@0600 [facility] Last Admin: 09/03/18 06:11 Dose: 80 mg Metoprolol Tartrate (Lopressor -) 25 mg PO TID [facility] Last Admin: 09/03/18 13:52 Dose: 25 mg Pantoprazole Sodium (Protonix -) 40 mg PO DAILY [facility] Last Admin: 09/03/18 09:53 Dose: 40 mg Phenazopyridine HCl (Pyridium -) 100 mg PO TID PRN PRN Reason: bladder spasm Last Admin: 08/29/18 14:08 Dose: 100 mg 87 year old gentleman known to our service with 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 #Syncope #JOON secondary to volume depletion +/- bladder outlet obstruction #Lactic acidosis (now resolved) #Leukocytosis #Urinary retention with chronic chamberlain #Hx of LE edema #Hematuria #Hypernatremia #Pneumoperitonieum Renal function remains stable continue present diuretics BP stable as well continue chamberlain surgical follow will give aranesp SC for anemia no acute indication for transfusion Peewee Torres DO
[2018-09-03] MEDS: DOCUSATE SODIUM 100 MG CAPSULE (FP) PO SCH (21:37)
[2018-09-03] MEDS: ATORVASTATIN CA 20 MG TABLET (FP) PO SCH (21:40)
[2018-09-03] MEDS ORDERED: dilTIAZem HCL 30 MG TABLET (FP) PO SCH ×2 (22:00)
[2018-09-04] MEDS: METOPROLOL TARTRATE 25 MG TABLET (FP) PO SCH ×2 (05:35→13:38)
[2018-09-04] MEDS: FUROSEMIDE 40 MG TABLET (FP) PO SCH ×2 (05:37→13:38)
[2018-09-04 06:36] LABS: BASO % 0.5 % (0-2.0); HEMATOCRIT 23.8 % (35.4-49); HEMOGLOBIN 7.5 GM/dL (11.7-16.9); LYMPH % 38.6 % (8-40); MCH 29.8 pg (25.7-33.7); MCHC 31.7 g/dl (32.0-35.9); NEUT % 54.9 % (42.8-82.8); PLATELET COUNT 196 K/MM3 (134-434); RBC 2.53 M/mm3 (4.00-5.60); RDW 18.2 % (11.9-15.9); WHITE BLOOD COUNT 7.4 K/mm3 (4.0-10.0)
[2018-09-04 06:38] LABS: ALBUMIN 1.4 g/dl (3.4-5.0); ALK PHOS 80 U/L (45-117); ANION GAP 5 MMOL/L (8-16); BILIRUBIN,TOTAL 0.4 mg/dL (0.2-1); BLOOD UREA NITROGEN 55 mg/dL (7-18); CALCIUM 7.6 mg/dL (8.5-10.1); CHLORIDE 103 mmol/L (98-107); CO2 35 mmol/L (21-32); CREATININE 1.5 mg/dL (0.55-1.3); GLUCOSE,RANDOM 85 mg/dL (74-106); POTASSIUM 3.7 mmol/L (3.5-5.1); SGOT/AST 15 U/L (15-37); SGPT/ALT 13 U/L (13-61); SODIUM 143 mmol/L (136-145); TOT PROT 4.8 g/dl (6.4-8.2)
[2018-09-04] MEDS: AMINO ACIDS/PROTEIN HYDROLYS 30 ML LIQUID.PKT PO SCH ×2 (08:46→17:50)
--- NOTE | 2018-09-04 09:18 | PN ---
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 Pt reported not feeling well for few days prior to admission. ED note indicated he had been feeling weak and lightheaded for the past week and has had multiple times where he needed to sit down to rest. On day prior to admission, he had an episode of passing out while standing after feeling lightheaded and weak. Unclear how long he had LOC. Of note, pt was evaluated here in the ED on 08/08 for hematuria and signed out AMA when admission was recommended due to low BP. I was consulted for altered mental status. CT head completed and reviewed and no acute changes. Degenerative subluxation of C7 in relation to T1, C6 on C spine CT. Completed urology procedure 08/25, cysto clot evacuation per notes reviewed. Is awake, alert, knows he's in hospital. Is being planned for SNF at this time. Neurologically no acute events and has been stable. Is aggrevated that he's still here and wants to leave hospital. Being planned for discharge and placement. Neurologically stable and not confused at this time. Active Medications Acetaminophen (Tylenol -) 650 mg PO Q4H PRN PRN Reason: FEVER Allopurinol (Zyloprim -) 100 mg PO DAILY [facility] Last Admin: 09/03/18 09:53 Dose: 100 mg Amino Acids (Prosource No Carb Liquid Pkt) 30 ml PO BID@0800,1730 [facility] Last Admin: 09/04/18 08:46 Dose: 30 ml Apixaban (Eliquis -) 2.5 mg PO BID [facility] Last Admin: 09/03/18 21:40 Dose: 2.5 mg Atorvastatin Calcium (Lipitor -) 20 mg PO HS [facility] Last Admin: 09/03/18 21:40 Dose: 20 mg Diltiazem HCl (Cardizem Cd -) 180 mg PO DAILY [facility] Last Admin: 09/03/18 09:50 Dose: 180 mg Diltiazem HCl (Cardizem Injection -) 10 mg IVPUSH Q4H PRN PRN Reason: HR >110 BPM Diltiazem HCl (Cardizem -) 30 mg PO TID [facility] Docusate Sodium (Colace -) 300 mg PO HS [facility] Last Admin: 09/03/18 21:37 Dose: Not Given Furosemide (Lasix -) 40 mg PO DAILY@1400 [facility] Last Admin: 09/03/18 13:52 Dose: 40 mg Furosemide (Lasix -) 80 mg PO DAILY@0600 [facility] Last Admin: 09/04/18 05:37 Dose: Not Given Metoprolol Tartrate (Lopressor -) 25 mg PO TID [facility] Last Admin: 09/04/18 05:35 Dose: Not Given Pantoprazole Sodium (Protonix -) 40 mg PO DAILY [facility] Last Admin: 09/03/18 09:53 Dose: 40 mg Phenazopyridine HCl (Pyridium -) 100 mg PO TID PRN PRN Reason: bladder spasm Last Admin: 08/29/18 14:08 Dose: 100 mg PHYSICAL EXAMINATION Vital Signs Period Temp Pulse Resp BP Sys/Gerardo Pulse Ox Last 24 Hr 97.4 F-98.1 F 95-104 18-20 85-100/45-60 98 GENERAL: Awake, alert, in no acute distress. HEAD: ecchymosis and abrasion left forehead, hematoma around left eye. abrasion below left eye EYES: Pupils equal, round and reactive to light, extraocular movements intact, sclera anicteric, conjunctiva clear. No lid lag. EARS, NOSE, THROAT: Ears normal, nares patent, oropharynx clear without exudates. Moist mucous membranes. NECK: Normal range of motion, supple without lymphadenopathy, JVD, or masses. LUNGS: Breath sounds equal, clear to auscultation bilaterally. No wheezes, and no crackles. No accessory muscle use. HEART: Regular rate and rhythm, normal S1 and S2 without murmur, rub or gallop. ABDOMEN: Soft, nontender, not distended, normoactive bowel sounds, no guarding, no rebound, no masses. No hepatomegaly or splenomegaly. chamberlain draining bloody urine MUSCULOSKELETAL: Normal range of motion at all joints. No bony deformities or tenderness. No CVA tenderness. UPPER EXTREMITIES: 2+ pulses, warm, well-perfused. No cyanosis. No clubbing. No peripheral edema. LOWER EXTREMITIES: 2+ pulses, warm, well-perfused. No calf tenderness. No peripheral edema. chronic vascular skin changes B/L LE: darkened, hypertrophic skin. NEUROLOGICAL: Awake, alert, dysarthric, sensory intact, moving extremities grossly, gait deferred PSYCHIATRIC: Cooperative. Good eye contact. Appropriate mood and affect. SKIN: Warm, dry, normal turgor, no rashes or lesions noted, normal capillary refill. CBCD WBC 7.4 K/mm3 (4.0-10.0) 09/04/18 06:00 RBC 2.53 M/mm3 (4.00-5.60) L 09/04/18 06:00 Hgb 7.5 GM/dL (11.7-16.9) L 09/04/18 06:00 Hct 23.8 % (35.4-49) L 09/04/18 06:00 MCV 94.0 fl (80-96) 09/04/18 06:00 MCHC 31.7 g/dl (32.0-35.9) L 09/04/18 06:00 RDW 18.2 % (11.9-15.9) H 09/04/18 06:00 Plt Count 196 K/MM3 (134-434) D 09/04/18 06:00 MPV 10.0 fl (7.5-11.1) 09/04/18 06:00 CMP Sodium 143 mmol/L (136-145) 09/04/18 06:00 Potassium 3.7 mmol/L (3.5-5.1) 09/04/18 06:00 Chloride 103 mmol/L (98-107) 09/04/18 06:00 Carbon Dioxide 35 mmol/L (21-32) H 09/04/18 06:00 Anion Gap 5 MMOL/L (8-16) L 09/04/18 06:00 BUN 55 mg/dL (7-18) H 09/04/18 06:00 Creatinine 1.5 mg/dL (0.55-1.3) H 09/04/18 06:00 Creat Clearance w eGFR 44.27 (>60) 09/04/18 06:00 Random Glucose 85 mg/dL (74-106) 09/04/18 06:00 Calcium 7.6 mg/dL (8.5-10.1) L 09/04/18 06:00 Total Bilirubin 0.4 mg/dL (0.2-1) 09/04/18 06:00 AST 15 U/L (15-37) 09/04/18 06:00 ALT 13 U/L (13-61) 09/04/18 06:00 Alkaline Phosphatase 80 U/L (45-117) 09/04/18 06:00 Total Protein 4.8 g/dl (6.4-8.2) L 09/04/18 06:00 Albumin 1.4 g/dl (3.4-5.0) L 09/04/18 06:00 CARDIAC ENZYMES Creatine Kinase 64 IU/L (26-308) 08/15/18 05:30 Troponin I 0.05 ng/ml (0.00-0.05) 08/15/18 05:[address] head Impression. No evidence of acute intracranial hemorrhage, edema, midline shift, mass effect , or skull fracture. No CT evidence of acute territorial infarction. CT c spine Impression. No acute bony abnormalities are seen. Intact odontoid. The predental space is not widened. Multilevel cervical spondylosis. Facet joint arthropathy. Osteoarthritis of uncovertebral joints. 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 Pt reported not feeling well for few days prior to admission. ED note indicated he had been feeling weak and lightheaded for the past week and has had multiple times where he needed to sit down to rest. On day prior to admission, he had an episode of passing out while standing after feeling lightheaded and weak. Unclear how long he had LOC. Of note, pt was evaluated here in the ED on 08/08 for hematuria and signed out AMA when admission was recommended due to low BP. He had a chamberlain catheter in place from home which was draining bloody urine. I was consulted for alerted mental status. Infection improved Renal function improved Monitor bp, maintain normotensive range Urology follow up, status post clot evacuation Monitor hematuria, H/H, maintain normal range IV/PO hydration DVT ppx Mental status at baseline Plan for SNF placement, placement as per case mgmt
[2018-09-04] MEDS: APIXABAN 2.5 MG TABLET PO SCH (10:22)
[2018-09-04] MEDS: ALLOPURINOL 100 MG TABLET (FP) PO SCH (10:22)
[2018-09-04] MEDS: PANTOPRAZOLE 40 MG TABLET (FP) PO SCH (10:22)
--- NOTE | 2018-09-04 10:25 | PN ---
Progress Note, Physician History of Present Illness: Hematuria cleared and Eliquis resumed, HR control improved with addition of Cardizem, asymptomatic pneumoperitoneum being observed, sensorium is at baseline , Imbruvica held for anemia. - Current Medication List Current Medications: Active Medications Acetaminophen (Tylenol -) 650 mg PO Q4H PRN PRN Reason: FEVER Allopurinol (Zyloprim -) 100 mg PO DAILY [facility] Last Admin: 09/04/18 10:22 Dose: 100 mg Amino Acids (Prosource No Carb Liquid Pkt) 30 ml PO BID@0800,1730 [facility] Last Admin: 09/04/18 08:46 Dose: 30 ml Apixaban (Eliquis -) 2.5 mg PO BID [facility] Last Admin: 09/04/18 10:22 Dose: 2.5 mg Atorvastatin Calcium (Lipitor -) 20 mg PO HS [facility] Last Admin: 09/03/18 21:40 Dose: 20 mg Diltiazem HCl (Cardizem Cd -) 180 mg PO DAILY [facility] Last Admin: 09/04/18 10:22 Dose: 180 mg Diltiazem HCl (Cardizem Injection -) 10 mg IVPUSH Q4H PRN PRN Reason: HR >110 BPM Diltiazem HCl (Cardizem -) 30 mg PO TID [facility] Docusate Sodium (Colace -) 300 mg PO HS [facility] Last Admin: 09/03/18 21:37 Dose: Not Given Furosemide (Lasix -) 40 mg PO DAILY@1400 [facility] Last Admin: 09/03/18 13:52 Dose: 40 mg Furosemide (Lasix -) 80 mg PO DAILY@0600 [facility] Last Admin: 09/04/18 05:37 Dose: Not Given Metoprolol Tartrate (Lopressor -) 25 mg PO TID [facility] Last Admin: 09/04/18 05:35 Dose: Not Given Pantoprazole Sodium (Protonix -) 40 mg PO DAILY [facility] Last Admin: 09/04/18 10:22 Dose: 40 mg Phenazopyridine HCl (Pyridium -) 100 mg PO TID PRN PRN Reason: bladder spasm Last Admin: 08/29/18 14:08 Dose: 100 mg - Objective Vital Signs: Vital Signs Temperature 97.5 F L 09/04/18 05:54 Pulse Rate 98 H 09/04/18 05:54 Respiratory Rate 20 09/04/18 05:54 Blood Pressure 90/50 L 09/04/18 05:54 O2 Sat by Pulse Oximetry (%) 98 09/03/18 21:00 Constitutional: Yes: No Distress, Calm, Thin Neck: Yes: Supple Cardiovascular: Yes: Pulse Irregular Respiratory: Yes: Regular, Diminished, On Nasal O2 Gastrointestinal: Yes: Normal Bowel Sounds, Soft Edema: No Labs: CBC, BMP 09/04/18 06:00 09/04/18 06:00 INR, PTT INR 1.12 (0.83-1.09) H 08/16/18 07:30 - ....Imaging EKG: Report Reviewed (Tele: Rate-controlled afib) Problem List - Problems (1) Syncope Code(s): R55 - SYNCOPE AND COLLAPSE Qualifiers: Syncope type: vasovagal syncope Qualified Code(s): R55 - Syncope and collapse (2) Acute kidney injury Code(s): N17.9 - ACUTE KIDNEY FAILURE, UNSPECIFIED (3) Anemia due to blood loss, acute Code(s): D62 - ACUTE POSTHEMORRHAGIC ANEMIA (4) Atrial fibrillation with rapid ventricular response Code(s): I48.91 - UNSPECIFIED ATRIAL FIBRILLATION (5) Chronic lymphocytic leukemia (CLL), B-cell Code(s): C91.10 - CHRONIC LYMPHOCYTIC LEUK OF B-CELL TYPE NOT ACHIEVE REMIS Qualifiers: Leukemia Active/Remission status: in remission Qualified Code(s): C91.11 - Chronic lymphocytic leukemia of B-cell type in remission (6) Hyperlipidemia Code(s): E78.5 - HYPERLIPIDEMIA, UNSPECIFIED Qualifiers: Hyperlipidemia type: pure hypercholesterolemia Qualified Code(s): E78.00 - Pure hypercholesterolemia, unspecified; E78.0 - Pure hypercholesterolemia (7) Mesenteric infarction Code(s): K55.069 - ACUTE INFARCTION OF INTESTINE, PART AND EXTENT UNSPECIFIED (8) TIA (transient ischemic attack) Code(s): G45.9 - TRANSIENT CEREBRAL ISCHEMIC ATTACK, UNSPECIFIED Qualifiers: Transient cerebral ischemia type: unspecified Qualified Code(s): G45.9 - Transient cerebral ischemic attack, unspecified (9) Urinary hesitancy Code(s): R39.11 - HESITANCY OF MICTURITION (10) Weakness due to cerebrovascular accident (CVA) Code(s): I63.9 - CEREBRAL INFARCTION, UNSPECIFIED; R53.1 - WEAKNESS (11) Acute on chronic diastolic heart failure Code(s): I50.33 - ACUTE ON CHRONIC DIASTOLIC (CONGESTIVE) HEART FAILURE (12) Pneumoperitoneum Code(s): K66.8 - OTHER SPECIFIED DISORDERS OF PERITONEUM Assessment/Plan Echo: 01/23/2018 Normal biventricular size and fxn, mild-mod TR, mild , mod LAE, mild [place] 1. Post op day #9 post cysto clot evacuation and chamberlain placement, for hematuria since resolved 2. Syncope in setting of anemia and intravascular volume depletion from overdiuresis 3. Asymptomatic pneumoperitoneum w/o obvious perforation source 4. 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 CAD angina pectoris, stable 6. Acute on chronic diastolic heart failure 7. Persistent atrial fibrillation with RVR [id number] score of 6 on A/C now off DOAC's/Eliquis 8. History of CVA/TIA 9. HTN 10. Hypercholesterolemia 11. 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 History of recurrent diverticular bleed 13. Acute on CKD (pre-renal) referable to volume depletion from overdiuresis improving, chronic mild-moderate left hydronephrosis 14. 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 Continue Eliquis 2.5 BID as hematuria has resolved, continue Metoprolol 25 TID, consolidate dosing Cardizem CD 240 qd and Lipitor 20 QHS 2. Transfuse to maintain Hgb equal or > 8.0, aranesp SC for anemia 3. Lasix 80/40 qd with monitor renal function and electrolytes 4. Completed empiric antibiotic course 5. Observation for asymptomatic pneumo-peritoneum given multiple co-morbidities 6. D/c planning to [facility]
[2018-09-04 10:28] VITALS: BP 99/50; PULSE 109; TEMP 97.3
--- NOTE | 2018-09-04 11:10 | DS ---
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 Pt reports not feeling well for the past few days. He is unclear on the timeline of events but he reports falling this morning and does not recall events. ED note reflects the following events: Pt says he has been feeling weak and lightheaded for the past week and has had multiple times where he needed to sit down to rest. Yesterday and today he had an episode of passing out while standing after feeling lightheaded and weak. Unclear how long he had LOC. Of note, pt was evaluated here in the ED on 08/08 for hematuria and signed out AMA when admission was recommended due to low BP. He has a chamberlain catheter in place from home which is draining bloody urine. Constitutional: Yes: No Distress, Calm, Cachectic Cardiovascular: Yes: Tachycardia, Pulse Irregular Respiratory: Yes: Regular Gastrointestinal: Yes: Normal Bowel Sounds, Soft Renal/: Yes: Chamberlain Present Musculoskeletal: Yes: Muscle Weakness Edema: No Peripheral Pulses WNL: Yes Neurological: Yes: Alert, Oriented Psychiatric: Yes: Alert, Oriented Labs: CBC, BMP 09/04/18 06:00 09/04/18 06:00 Discharge Summary Reason For Visit: SEPSIS Current Active Problems Acute on chronic diastolic heart failure (Acute) Bladder spasm (Acute) Dysphagia (Acute) Hypoalbuminemia (Acute) Hypotension (Acute) Metabolic encephalopathy (Acute) NHL (non-Hodgkin's lymphoma) (Acute) Pneumoperitoneum (Acute) Protein calorie malnutrition (Acute) Severe sepsis (Acute) Sundowning (Acute) Syncope (Acute) Hospital Course: Laboratory Last Values WBC 7.4 K/mm3 (4.0-10.0) 09/04/18 06:00 RBC 2.53 M/mm3 (4.00-5.60) L 09/04/18 06:00 Hgb 7.5 GM/dL (11.7-16.9) L 09/04/18 06:00 Hct 23.8 % (35.4-49) L 09/04/18 06:00 MCV 94.0 fl (80-96) 09/04/18 06:00 MCH 29.8 pg (25.7-33.7) 09/04/18 06:00 MCHC 31.7 g/dl (32.0-35.9) L 09/04/18 06:00 RDW 18.2 % (11.9-15.9) H 09/04/18 06:00 Plt Count 196 K/MM3 (134-434) D 09/04/18 06:00 MPV 10.0 fl (7.5-11.1) 09/04/18 06:00 Absolute Neuts (auto) 4.1 K/mm3 (1.5-8.0) 09/04/18 06:00 Neutrophils % 54.9 % (42.8-82.8) 09/04/18 06:00 Lymphocytes % 38.6 % (8-40) 09/04/18 06:00 Monocytes % 5.0 % (3.8-10.2) 09/04/18 06:00 Eosinophils % 1.0 % (0-4.5) 09/04/18 06:00 Basophils % 0.5 % (0-2.0) 09/04/18 06:00 Nucleated RBC % 0 % (0-0) 09/04/18 06:00 PT with INR 13.20 SEC (9.7-13.0) H 08/16/18 07:30 INR 1.12 (0.83-1.09) H 08/16/18 07:30 PTT (Actin FS) 28.6 SECONDS (25.2-36.5) 08/14/18 14:31 VBG pH 7.43 (7.32-7.42) H 08/14/18 17:30 POC VBG pCO2 41.6 mmHg (38-52) D 08/14/18 17:30 POC VBG pO2 23.9 mmHg (28-48) L D 08/14/18 17:30 Mixed VBG HCO3 27.2 meq/L (19-25) H 08/14/18 17:30 Sodium 143 mmol/L (136-145) 09/04/18 06:00 Potassium 3.7 mmol/L (3.5-5.1) 09/04/18 06:00 Chloride 103 mmol/L (98-107) 09/04/18 06:00 Carbon Dioxide 35 mmol/L (21-32) H 09/04/18 06:00 Anion Gap 5 MMOL/L (8-16) L 09/04/18 06:00 BUN 55 mg/dL (7-18) H 09/04/18 06:00 Creatinine 1.5 mg/dL (0.55-1.3) H 09/04/18 06:00 Creat Clearance w eGFR 44.27 (>60) 09/04/18 06:00 POC Glucometer 150 UNITS (80-120) 09/03/18 11:48 Random Glucose 85 mg/dL (74-106) 09/04/18 06:00 Lactic Acid 1.6 mmol/L (0.4-2.0) 08/14/18 22:30 Uric Acid 4.8 mg/dL (2.6-7.2) 08/24/18 06:00 Calcium 7.6 mg/dL (8.5-10.1) L 09/04/18 06:00 Phosphorus 2.0 mg/dL (2.5-4.9) L 09/02/18 06:00 Magnesium 1.7 mg/dL (1.8-2.4) L 09/02/18 06:00 Iron 37 ug/dL (38-169) L 09/01/18 14:45 TIBC 151 ug/dL (250-450) L 09/01/18 14:45 Iron Saturation 25 % (15-55) 09/01/18 14:45 Ferritin 298.7 ng/ml (8-388) 09/01/18 14:45 Total Bilirubin 0.4 mg/dL (0.2-1) 09/04/18 06:00 AST 15 U/L (15-37) 09/04/18 06:00 ALT 13 U/L (13-61) 09/04/18 06:00 Alkaline Phosphatase 80 U/L (45-117) 09/04/18 06:00 LD Total 256 U/L (87-246) H 08/24/18 06:00 Creatine Kinase 64 IU/L (26-308) 08/15/18 05:30 Troponin I 0.05 ng/ml (0.00-0.05) 08/15/18 05:30 Total Protein 4.8 g/dl (6.4-8.2) L 09/04/18 06:00 Albumin 1.4 g/dl (3.4-5.0) L 09/04/18 06:00 Urine Color Red 08/14/18 14:56 Urine Appearance Cloudy 08/14/18 14:56 Urine pH 6.0 (5.0-8.0) 08/14/18 14:56 Ur Specific Carney 1.013 (1.001-1.035) 08/14/18 14:56 Urine Protein 2+ (NEGATIVE) H 08/14/18 14:56 Urine Glucose (UA) Negative (NEGATIVE) 08/14/18 14:56 Urine Ketones Negative (NEGATIVE) 08/14/18 14:56 Urine Blood 2+ (NEGATIVE) H 08/14/18 14:56 Urine Nitrite Negative (NEGATIVE) 08/14/18 14:56 Urine Bilirubin Negative (<2.0 mg/dL) 08/14/18 14:56 Urine Urobilinogen Negative mg/dL (0.2-1.0) 08/14/18 14:56 Ur Leukocyte Esterase 1+ (NEGATIVE) H 08/14/18 14:56 Urine WBC (Auto) 258 /hpf (3-5) 08/14/18 14:56 Urine RBC (Auto) 4947 /hpf (0-3) 08/14/18 14:56 Blood Type O POSITIVE 08/30/18 06:00 Antibody Screen Negative 08/14/18 14:31 Crossmatch See Detail 08/14/18 14:31 Microbiology 08/21/18 11:45 Stool Clostridium difficile Antigen (JOHN) - Final 08/21/18 11:45 Stool Clostridium difficile Toxin Assay - Final 08/14/18 14:30 Blood - Peripheral Venous Blood Culture - Final NO GROWTH AFTER 5 DAYS INCUBATION 08/14/18 14:31 Blood - Peripheral Venous Blood Culture - Final NO GROWTH AFTER 5 DAYS INCUBATION 08/14/18 14:56 Urine - Urine Clean Catch Urine Culture - Final NO GROWTH OBTAINED CYCSTOSCOPY: Operative Date: 08/25/18 Pre-Operative Diagnosis: Hematuria Operation: Cysto clot evacuation and chamberlain placement Findings: Bladder filled with clots. Active bleeding noted from the prostate Prostate is moderately obstructive. Ureteral orifices normally located with clear efflux Post-Operative Diagnosis: Same as Pre-op Surgeon: Mila Wise CT ABDOMEN ON 08/29/18: Pneumoperitoneum has developed in comparison to a CT study of 07/20/2018 - ? source. Choledocholithiasis is noted. Status post cholecystectomy. Pancreatic cysts identified on MRI/MRCP are difficult to appreciate on noncontrast imaging. Mild to moderate left hydronephrosis without obvious interval change. Left inguinal hernia containing a segment of nondilated sigmoid colon. Mild splenomegaly. CT SOFT TISSUE NECK 08/29/18: Minimal to mild bilateral ethmoid sinus mucosal thickening is seen. There is mild mucosal thickening along the right ostiomeatal unit. No fluid accumulation is noted. There is no discrete bone erosion. The cribriform plate and fully ethmoidalis appear intact. MODIFIED BARIUM SWALLOW ON 08/28/18: IMPRESSION: Impaired laryngeal elevation and relaxation of the upper esophageal sphincter with moderate to severe stasis of puree and easier flow of liquid boluses through the UES. RECOMMENDATIONS: Otolaryngology consult to visualize vocal cords and rule out vocal cords paresis/ paralysis. Workup regarding etiology. Trial of thinned out pureed food, added to thin soup or ensure. Trial of Ensure plus 4 times daily Single sips, swallow hard with effort to 3 times per bite or sip. Alternate thinned out puree with sip of thin liquid. Monitor by mouth tolerance, pulmonary status, nutritional intake. Head of bed needs to be fully elevated, ideally out of bed in chair for meals, and upright for least 2 hours after bedtime. Crush medication and give in nectar thick liquid.Single sips, swallow hard with effort to 3 times per bite or sip Condition: Guarded - Instructions Diet, Activity, Other Instructions: Follow up with Dr West and Dr Wise within 2 weeks Follow up with Dr Durán and Dr Torres within 4 weeks Take Furosemide 80 mg at breakfast and 40 mg at lunch time Resume Eliquis 2.5 mg po BID Also, start Diltiazem CD 240 mg daily D/C metoprolol Referrals: Denise West MD [Primary Care Provider] - Juan Durán MD [Staff Physician] - Mila Wise MD [Staff Physician] - Peewee Torres MD [Staff Physician] - Disposition: VNS/HOME HEALTH CARE - Home Medications Comprehensive Discharge Medication List: Ambulatory Orders Atorvastatin Ca [Lipitor] 20 mg PO HS 12/06/16 Furosemide [Lasix] 80 mg PO BID 12/06/16 Melatonin 5 mg PO HS 12/06/16 Metoprolol Succinate [Toprol XL -] 50 mg PO BID #60 tab.sr.24h 01/30/18 Ibrutinib [Imbruvica] 120 mg PO DAILY 06/20/18 Pantoprazole Sodium [Protonix -] 40 mg PO BID #60 tablet.ec 06/27/18 Allopurinol [Zyloprim -] 100 mg PO DAILY 08/08/18
--- NOTE | 2018-09-04 19:06 | PN ---
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 #Syncope #JOON secondary to volume depletion +/- bladder outlet obstruction #Lactic acidosis (now resolved) #Leukocytosis #Urinary retention with chronic chamberlain #Hx of LE edema #Hematuria #Hypernatremia #Pneumoperitonieum Renal function remains stable Continue Lasix 80/40 dialy F/u urology as outpatient would check BMP Qweekly s/p Aransep SC yesterday Peewee Torres DO
== END 2018-09-04 18:37 | disposition home health service (06) | DRG 698 ==
LOC: JER 13:11 → JERBED 16:53 → J2W 19:40 → J4W 08-15 18:03 → J7W 08-22 16:25 → J4S 08-26 00:30
PROVIDERS: ADMIT Family Medicine; ATTEND Family Medicine
PROC: 30233N1 Transfusion of Nonautologous Red Blood Cells into Peripheral Vein, Percutaneous Approach (ICD-10-PCS; 2018-08-15)
PROC: 0TCB8ZZ Extirpation of Matter from Bladder, Via Natural or Artificial Opening Endoscopic (ICD-10-PCS; principal; 2018-08-25 14:00)
DX: T83.518A Infection and inflammatory reaction due to other urinary catheter, initial encounter (principal); A41.9 Sepsis, unspecified organism; I50.33 Acute on chronic diastolic (congestive) heart failure; G93.41 Metabolic encephalopathy; N39.0 Urinary tract infection, site not specified; C85.90 Non-Hodgkin lymphoma, unspecified, unspecified site; N17.9 Acute kidney failure, unspecified; C91.10 Chronic lymphocytic leukemia of B-cell type not having achieved remission; I48.1 Persistent atrial fibrillation; E87.2 Acidosis; E87.0 Hyperosmolality and hypernatremia; E46 Unspecified protein-calorie malnutrition; I13.0 Hypertensive heart and chronic kidney disease with heart failure and stage 1 through stage 4 chronic kidney disease, or unspecified chronic kidney disease; D62 Acute posthemorrhagic anemia; R64 Cachexia; Y83.9 Surgical procedure, unspecified as the cause of abnormal reaction of the patient, or of later complication, without mention of misadventure at the time of the procedure; N42.1 Congestion and hemorrhage of prostate; R55 Syncope and collapse; R33.9 Retention of urine, unspecified; R13.10 Dysphagia, unspecified; E88.09 Other disorders of plasma-protein metabolism, not elsewhere classified; I95.9 Hypotension, unspecified; Z68.20 Body mass index [BMI] 20.0-20.9, adult; E78.5 Hyperlipidemia, unspecified; D72.829 Elevated white blood cell count, unspecified; N40.0 Benign prostatic hyperplasia without lower urinary tract symptoms; N18.3 Chronic kidney disease, stage 3 (moderate); K66.8 Other specified disorders of peritoneum; I25.119 Atherosclerotic heart disease of native coronary artery with unspecified angina pectoris; R31.0 Gross hematuria
CPT/HCPCS: 36415; 36430; 70450-TC; 70486-TC; 70490-TC; 71045-TC-FY; 71250-TC; 72125-TC; 74176-TC; 74230-TC-FY; 76700-TC; 76775-TC; 76856-TC; 80048; 80053; 81003; 81015; 82550; 82728; 82803; 82962; 83540; 83550; 83605; 83615; 83735; 84100; 84484; 84550; 85025; 85027; 85610; 85730; 86850; 86900; 86901; 86922; 87040; 87086; 87324; 87449; 92611-GN; 93005; 93010; 93971; 94760; 97116-GP; 97161-GP; 99285-25; J0881; J1756; J7030; P9038; P9058

== ENCOUNTER 2018-09-07 16:50 | Inpatient (IN) | payer OTHER, MEDICARE ==
[2018-09-07] MEDS ORDERED: SODIUM CHLORIDE 1,000 ML IV STA (18:17)
--- NOTE | 2018-09-07 18:45 | PDOC ---
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 Pt's nephew is his beer brewer and reports that pt was just discharged from the hospital 4 days ago. While at home, pt was doing well until today when he attempted to get out of bed. Pt states he felt very lightheaded. Denies LOC. The patient denies chest pain, shortness of breath. Denies fever, chills, nausea, vomiting, diarrhea or constipation. Nephew notes that pt has had hematuria intermittently since the chamberlain was placed several weeks ago. He also notes that over the past day, the pt has had dark stools. Allergies: Coumadin Past surgical history: Hernia Surgery Social History: No alcohol, tobacco or drug use reported Past History - Past Medical History Allergies/Adverse Reactions: Allergies Allergy/AdvReac Type Severity Reaction Status Date / Time warfarin sodium Allergy Severe bleeding Verified 09/07/18 17:19 [From Coumadin] Benzodiazepines AdvReac Verified 09/07/18 17:19 haloperidol [From Haldol] AdvReac Verified 09/07/18 17:19 Home Medications: Ambulatory Orders Melatonin 5 mg PO HS 12/06/16 Allopurinol [Zyloprim -] 100 mg PO DAILY 08/08/18 Acetaminophen [Tylenol .Regular Strength -] 650 mg PO Q4H PRN tablet 09/04/18 Apixaban [Eliquis -] 2.5 mg PO BID #60 tablet 09/04/18 Atorvastatin Ca [Lipitor] 20 mg PO HS tablet 09/04/18 Docusate Sodium [Colace -] 300 mg PO HS #90 capsule 09/04/18 Furosemide [Lasix -] 40 mg PO DAILY@1400 #30 tablet 09/04/18 Diltiazem Cd [Cardizem Cd -] 240 mg PO DAILY 09/08/18 Furosemide 80 mg PO DAILY@0600 09/08/18 Metoprolol Tartrate 25 mg PO TID 09/08/18 Anemia: No Asthma: No Cancer: Yes (lymphoma non hodgkins) Cardiac Disorders: Yes (afib-CARDIOVERSION) CVA: No COPD: No CHF: No Dementia: No Diabetes: No GI Disorders: Yes (RECTAL BLEEDING;DIVERTICULOSIS) Disorders: Yes (hematuria) HTN: No Hypercholesterolemia: Yes Liver Disease: No Seizures: No Thyroid Disease: No - Surgical History Abdominal Surgery: Yes (HERNIA SX) Appendectomy: No Cardiac Surgery: No Cholecystectomy: Yes Lung Surgery: No Neurologic Surgery: No Orthopedic Surgery: No - Suicide/Smoking/Psychosocial Hx Smoking Status: No Smoking History: Never smoked Have you smoked in the past 12 months: No Number of Cigarettes Smoked Daily: 0 If you are a former smoker, when did you quit?: 2006 Cigars Per Day: 0 Information on smoking cessation initiated: No 'Breaking Loose' booklet given: 08/23/15 Hx Alcohol Use: No Drug/Substance Use Hx: No Substance Use Type: None Hx Substance Use Treatment: No Review of Systems - Review of Systems Comments:: 09/07/18 18:44 "GENERAL/CONSTITUTIONAL: (+) Weakness and lightheadedness. No fever or chills. HEAD, EYES, EARS, NOSE AND THROAT: No change in vision. No ear pain or discharge. No sore throat. CARDIOVASCULAR: No chest pain, no shortness of breath, no loss of consciousness RESPIRATORY: No cough, wheezing, or hemoptysis. GASTROINTESTINAL: No vomiting, diarrhea or constipation. GENITOURINARY: No dysuria, frequency, or change in urination. MUSCULOSKELETAL: No joint or muscle swelling or pain. No neck or back pain. SKIN: No rash NEUROLOGIC: No change in strength/sensation. ENDOCRINE: No increased thirst. No abnormal weight change. HEMATOLOGIC/LYMPHATIC: No anemia, easy bleeding, or history of blood clots. ALLERGIC/IMMUNOLOGIC: No hives or skin allergy." *Physical Exam - Vital Signs Last Vital Signs Temp Pulse Resp BP Pulse Ox 97.4 F L 106 H 18 96/71 95 09/07/18 16:50 09/07/18 18:00 09/07/18 18:00 09/07/18 18:00 09/07/18 18:21 - Physical Exam Comments: 09/07/18 18:44 GENERAL: Awake, alert, and fully oriented, in no acute distress. HEAD: No signs of trauma EYES: PERRLA, EOMI, sclera anicteric, conjunctiva clear ENT: Auricles normal inspection, hearing grossly normal, nares patent, oropharynx clear without exudates. Moist mucosa NECK: Nontender, no stepoffs, Normal ROM, supple, no lymphadenopathy, JVD, or masses LUNGS: Breath sounds equal, clear to auscultation bilaterally. No wheezes, and no crackles HEART: Regular rate and rhythm, normal S1 and S2, no murmurs, rubs or gallops ABDOMEN: Soft, nontender, normoactive bowel sounds. No guarding, no rebound. No masses EXTREMITIES: Normal range of motion, no edema. No clubbing or cyanosis. No cords, erythema, or tenderness NEUROLOGICAL: Cranial nerves II through XII intact. 5/5 strength and sensation in all extremities, Normal speech, normal gait, normal cerebellar function SKIN: Warm, Dry, normal turgor, no rashes or lesions noted. Heart Score/ECG Review - ECG Impressions Comment:: 09/07/18 18:44 atrial fibrillation, rate 99, RBBB, TW inversions in septal leads ED Treatment Course - LABORATORY CBC & Chemistry Diagram: 09/08/18 07:30 09/08/18 07:30 - RADIOLOGY Radiology Studies Ordered: Category Date Time Status CHEST X-RAY PORTABLE* [RAD] Stat Radiology 09/07/18 18:14 Ordered Medical Decision Making - Critical Care Time Total Critical Care Time (minutes): 60 Critical Care Statement: The care of this patient involved high complexity decision making to prevent further life threatening deterioration of the patient 's condition and/or to evaluate & treat vital organ system(s) failure or risk of failure. - Medical Decision Making 09/07/18 18:45 87 M presenting with weakness and lightheadedness. FOund in ED to be hypotensive and tachycardic. Suspect symptomatic anemia 2/2 hematuria and possible GI bleed. Pt may also be dehydrated as he has had poor PO intake for the past few days. Also consider sepsis, though pt with no fevers or chills. - Labs, cultures, trop, T&S - CXR, UA - stool guaiac - IVF - Transfuse PRN 09/07/18 19:13 Pt's Hb at baseline Stool guaiac negative Pt likely dehydrated 2/2 poor PO. Admit to hospitalist. *DC/Admit/Observation/Transfer Diagnosis at time of Disposition: Hypotension Anemia Qualifiers: Anemia type: other cause Other causes of anemia: antineoplastic chemotherapy Qualified Code(s): D64.81 - Anemia due to antineoplastic chemotherapy Hematuria Qualifiers: Hematuria type: gross Qualified Code(s): R31.0 - Gross hematuria - Discharge Dispostion Decision to Admit order: Yes - Referrals - Patient Instructions - Post Discharge Activity - Attestations Physician Attestion: 09/08/18 11:14 I, Dr. Cristi Shaw MD, attest that this document has been prepared under my direction and personally reviewed by me in its entirety. I further attest, that it accurately reflects all work, treatment, procedures and medical decision -making performed by me.
[2018-09-07 19:16] LABS: BASO % 0.8 % (0-2.0); EOS % 0.7 % (0-4.5); HEMATOCRIT 26.6 % (35.4-49); HEMOGLOBIN 8.5 GM/dL (11.7-16.9); LYMPH % 42.1 % (8-40); MCH 30.6 pg (25.7-33.7); MCHC 31.9 g/dl (32.0-35.9); MEAN CELL VOLUME 95.9 fl (80-96); MEAN PLT VOLUME 9.8 fl (7.5-11.1); MONO % 5.8 % (3.8-10.2); NEUT % 50.6 % (42.8-82.8); PLATELET COUNT 294 K/MM3 (134-434); RBC 2.77 M/mm3 (4.00-5.60); RDW 20.2 % (11.9-15.9); WHITE BLOOD COUNT 8.6 K/mm3 (4.0-10.0)
[2018-09-07 19:42] LABS: URINE APPEARANCE CLOUDY; URINE BILIRUBIN NEGATIVE (<2.0 mg/dL); URINE COLOR RED; URINE GLUCOSE (UA) NEGATIVE (NEGATIVE); URINE KETONE NEGATIVE (NEGATIVE); URINE LEUK ESTERASE 2+ (NEGATIVE); URINE NITRITE NEGATIVE (NEGATIVE); URINE PROTEIN 2+ (NEGATIVE)
[2018-09-07 19:53] LABS: ALBUMIN 1.8 g/dl (3.4-5.0); ALK PHOS 107 U/L (45-117); ANION GAP 7 MMOL/L (8-16); BILIRUBIN,TOTAL 0.4 mg/dL (0.2-1); BLOOD UREA NITROGEN 47 mg/dL (7-18); CALCIUM 7.6 mg/dL (8.5-10.1); CHLORIDE 106 mmol/L (98-107); CO2 32 mmol/L (21-32); CREATININE 1.9 mg/dL (0.55-1.3); GLUCOSE,RANDOM 88 mg/dL (74-106); POTASSIUM 4.6 mmol/L (3.5-5.1); SGOT/AST 19 U/L (15-37); SGPT/ALT 17 U/L (13-61); SODIUM 145 mmol/L (136-145); TOT PROT 5.6 g/dl (6.4-8.2)
[2018-09-07 20:25] LABS: INR 1.44 (0.83-1.09); PROTHROMBIN TIME (PATIENT) 17.1 SEC (9.7-13.0)
[2018-09-07] MEDS ORDERED: SODIUM CHLORIDE 0.9% 1000 ML INFUS.BAG IV ONE (21:13)
[2018-09-07] MEDS ORDERED: VANCOMYCIN 1,000 MG in DEXTROSE 5%-WATER - 250 ML IVPB ONE (21:13)
[2018-09-07] MEDS ORDERED: ACETAMINOPHEN 1000 MG/100 ML VIAL (NON FORMULARY) IVPB ONE (21:13)
[2018-09-07] MEDS ORDERED: VANCOMYCIN 1 GRAM (PRE-DOCKED) 1,000 MG/250 ML BAG IVPB ONE (21:36)
[2018-09-07] MEDS ORDERED: ACETAMINOPHEN INJECTION 100 ML IVPB ONE (21:36)
--- NOTE | 2018-09-07 23:46 | HP ---
CHIEF COMPLAINT: lightheadedness PCP: Shamar Coronado HISTORY OF PRESENT ILLNESS: This is an 87 year old male with a past medical history significant for Afib on Eliquis, HTN, diastolic dysfunction, anemia, CKD who is s/p hospitalization from 08/14-09/04 for syncope, initially hypovolemic due to overdiuresis, later acute on chronic diastolic HF, anemia requiring transfusion and acute delirium. He presented to the ED today for lightheadedness after getting up today. Nephew reports that pt BP has been running low and patient has thus been unable to receive his cardizem at home since DC from the hospital. He did receive one dose of metoprolol at 4pm. The visiting nurse advised nephew to hold his cardizem if his BP was too low. He has been receiving his furosemide as prescribed twice daily. 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 cholecystectomy Social History: Smoking: quit 2005, 1/2 PPD prior Alcohol: pt denies Drugs: pt denies Family History: father age 74, CVA mother age 72, unk sister age 70, unk brother alive s/p CVA Allergies warfarin sodium [From Coumadin] Allergy (Severe, Verified 09/07/18 17:19) bleeding Benzodiazepines Adverse Reaction (Verified 09/07/18 17:19) haloperidol [From Haldol] Adverse Reaction (Verified 09/07/18 17:19) HOME MEDICATIONS: 3 Medication Instructions Recorded Melatonin 5 mg PO HS 12/06/16 Allopurinol [Zyloprim -] 100 mg PO DAILY 08/08/18 Acetaminophen [Tylenol .Regular 650 mg PO Q4H PRN tablet 09/04/18 Strength -] Apixaban [Eliquis -] 2.5 mg PO BID #60 tablet 09/04/18 Atorvastatin Ca [Lipitor] 20 mg PO HS tablet 09/04/18 Docusate Sodium [Colace -] 300 mg PO HS #90 capsule 09/04/18 Furosemide [Lasix -] 40 mg PO DAILY@1400 #30 tablet 09/04/18 REVIEW OF SYSTEMS CONSTITUTIONAL: Present: Absent: fever, chills, diaphoresis, generalized weakness, malaise, loss of appetite, weight change HEENT: Absent: rhinorrhea, nasal congestion, throat pain, throat swelling, difficulty swallowing, mouth swelling, ear pain, eye pain, visual changes CARDIOVASCULAR: Present: lightheadedness Absent: chest pain, syncope, palpitations, irregular heart rate, peripheral edema RESPIRATORY: Absent: cough, shortness of breath, dyspnea with exertion, orthopnea, wheezing, stridor, hemoptysis GASTROINTESTINAL: Absent: abdominal pain, abdominal distension, nausea, vomiting, diarrhea, constipation, melena, hematochezia GENITOURINARY: Absent: dysuria, frequency, urgency, hesitancy, hematuria, flank pain, genital pain MUSCULOSKELETAL: Absent: myalgia, arthralgia, joint swelling, back pain, neck pain SKIN: Absent: rash, itching, pallor HEMATOLOGIC/IMMUNOLOGIC: Absent: easy bleeding, easy bruising, lymphadenopathy, frequent infections ENDOCRINE: Absent: unexplained weight gain, unexplained weight loss, heat intolerance, cold intolerance NEUROLOGIC: Absent: headache, focal weakness or paresthesias, dizziness, unsteady gait, seizure, mental status changes, bladder or bowel incontinence PSYCHIATRIC: Absent: anxiety, depression, suicidal or homicidal ideation, hallucinations. PHYSICAL EXAMINATION Vital Signs - 24 hr 3 09/07/18 09/07/18 09/07/18 16:50 17:15 17:25 Temperature 97.4 F L Pulse Rate 66 Pulse Rate [ 106 H 99 H Apical] Respiratory 16 20 18 Rate Blood Pressure 81/57 L Blood Pressure 81/57 L 87/56 L [Right Arm] O2 Sat by Pulse 95 95 99 Oximetry (%) 3 09/07/18 09/07/18 09/07/18 17:45 18:00 18:20 Temperature Pulse Rate Pulse Rate [ 96 H 106 H 106 H Apical] Respiratory 18 18 18 Rate Blood Pressure Blood Pressure 83/69 L 96/71 96/62 [Right Arm] O2 Sat by Pulse 98 98 96 Oximetry (%) 3 09/07/18 09/07/18 09/07/18 18:21 18:40 19:00 Temperature Pulse Rate Pulse Rate [ 104 H 102 H Apical] Respiratory 22 H 20 Rate Blood Pressure Blood Pressure 87/62 L 95/66 [Right Arm] O2 Sat by Pulse 95 100 99 Oximetry (%) 3 09/07/18 20:00 Temperature Pulse Rate Pulse Rate [ 104 H Apical] Respiratory 18 Rate Blood Pressure Blood Pressure 96/67 [Right Arm] O2 Sat by Pulse 100 Oximetry (%) GENERAL: Awake, alert, and fully oriented, in no acute distress. HEAD: Normal with no signs of trauma. EYES: Pupils equal, round and reactive to light, extraocular movements intact, sclera anicteric, conjunctiva clear. No lid lag. EARS, NOSE, THROAT: Ears normal, nares patent, oropharynx clear without exudates. Moist mucous membranes. NECK: Normal range of motion, supple without lymphadenopathy, JVD, or masses. LUNGS: Breath sounds equal, clear to auscultation bilaterally. No wheezes, and no crackles. No accessory muscle use. HEART: Regular rate and rhythm, normal S1 and S2 without murmur, rub or gallop. ABDOMEN: Soft, nontender, not distended, normoactive bowel sounds, no guarding, no rebound, no masses. No hepatomegaly or splenomegaly. MUSCULOSKELETAL: Normal range of motion at all joints. No bony deformities or tenderness. No CVA tenderness. UPPER EXTREMITIES: 2+ pulses, warm, well-perfused. No cyanosis. No clubbing. No peripheral edema. LOWER EXTREMITIES: 2+ pulses, warm, well-perfused. No calf tenderness. No peripheral edema. NEUROLOGICAL: Cranial nerves II-XII intact. Normal speech. Normal gait. PSYCHIATRIC: Cooperative. Good eye contact. Appropriate mood and affect. SKIN: Warm, dry, normal turgor, no rashes or lesions noted, normal capillary refill. Laboratory Results - last 24 hr 3 09/07/18 09/07/18 09/07/18 18:18 18:24 19:10 WBC 8.6 RBC 2.77 L Hgb 8.5 L Hct 26.6 L MCV 95.9 MCH 30.6 MCHC 31.9 L RDW 20.2 H Plt Count 294 D MPV 9.8 Absolute Neuts (auto) 4.4 Neutrophils % 50.6 Lymphocytes % 42.1 H Monocytes % 5.8 Eosinophils % 0.7 Basophils % 0.8 Nucleated RBC % 0 PT with INR INR PTT (Actin FS) Sodium Potassium Chloride Carbon Dioxide Anion Gap BUN Creatinine Creat Clearance w eGFR Random Glucose Lactic Acid Calcium Total Bilirubin AST ALT Alkaline Phosphatase Total Protein Albumin Urine Color Red Urine Appearance Cloudy Urine pH 7.0 Ur Specific [place] 1.010 Urine Protein 2+ H Urine Glucose (UA) Negative Urine Ketones Negative Urine Blood 3+ H Urine Nitrite Negative Urine Bilirubin Negative Urine Urobilinogen 2.0 Ur Leukocyte Esterase 2+ H Urine WBC (Auto) 2255 Urine RBC (Auto) 541 Stool Occult Blood Negative Blood Type Antibody Screen 3 09/07/18 09/07/18 09/07/18 19:10 19:45 19:45 WBC RBC Hgb Hct MCV MCH MCHC RDW Plt Count MPV Absolute Neuts (auto) Neutrophils % Lymphocytes % Monocytes % Eosinophils % Basophils % Nucleated RBC % PT with INR 17.10 H INR 1.44 H PTT (Actin FS) 33.0 Sodium 145 Potassium 4.6 Chloride 106 Carbon Dioxide 32 Anion Gap 7 L BUN 47 H Creatinine 1.9 H Creat Clearance w eGFR 33.70 Random Glucose 88 Lactic Acid 3.0 H* Calcium 7.6 L Total Bilirubin 0.4 AST 19 ALT 17 Alkaline Phosphatase 107 Total Protein 5.6 L Albumin 1.8 L Urine Color Urine Appearance Urine pH Ur Specific [place] Urine Protein Urine Glucose (UA) Urine Ketones Urine Blood Urine Nitrite Urine Bilirubin Urine Urobilinogen Ur Leukocyte Esterase Urine WBC (Auto) Urine RBC (Auto) Stool Occult Blood Blood Type O POSITIVE Antibody Screen Negative ECG atrial fibrillation vent rate 99, QTC 503 left axis deviation RBBB inferior infarct, age undetermined possbile anterolateral infarct, age undetermined Radiology Reports CXR-portable official read pending, no obvious infiltrates or effusions, congestion much improved from CXR on 08/25/18 ASSESSMENT/PLAN: 87yM with PMH NHL, aFIB, HTN, diastolic dysfunction, anemia, chronic venous stasis, PNA, BPH, mesenteric ischemia, diverticulsis, ileus presented to the ED with lightheadedness today. lightheadedness - likely r/t low bp - ? overdiuresis - pt reports feeling better after IVF in ED - hold further ivf for now - hold diuretics as well - trend H/h to r/o anemia as cause Afib - cont eliquis - rate poorly controlled, has not been receiving his cardizem at all since DC and is receiving his metoprolol only intermittently - [id number] x1 now, bp now in 100s - restart home cardizem - cont home metoprolol diastolic HF - may be slightly overdiuresed presently given BP - hold lasix for now - cardiology consult Anemia - trend H/H JOON on CKD - Cr jumped to 1.9 from 1.5 upon DC - given IVF in ED - appears well hydrated at present - trend BMP - hold diuretics for now - consider renal consult UTI - change chamberlain, repeat C/S from new chamberlain - given vanc in ED - ID consult, followed by colin in past DVT PPX - on eliquis FEN - po fluids as tolerated - BMP in am - Low sodium diet as tolerated Dispo: Pt currently requires further observation. Visit type - Emergency Visit Emergency Visit: Yes ED Registration Date: 09/07/18 Care time: The patient presented to the Emergency Department on the above date and was hospitalized for further evaluation of their emergent condition. - New Patient This patient is new to me today: Yes Date on this admission: 09/07/18 - Critical Care Critical Care patient: No
[2018-09-08] MEDS ORDERED: dilTIAZem HCL 30 MG TABLET (FP) PO ONE (04:15)
[2018-09-08] MEDS: METOPROLOL TARTRATE 25 MG TABLET (FP) PO SCH ×3 (05:56→21:50)
[2018-09-08 08:14] LABS: BASO % 0.5 % (0-2.0); EOS % 1.9 % (0-4.5); HEMATOCRIT 24.7 % (35.4-49); HEMOGLOBIN 7.9 GM/dL (11.7-16.9); LYMPH % 44.5 % (8-40); MCH 30.7 pg (25.7-33.7); MCHC 32.2 g/dl (32.0-35.9); MEAN CELL VOLUME 95.3 fl (80-96); MEAN PLT VOLUME 9.9 fl (7.5-11.1); MONO % 6.9 % (3.8-10.2); NEUT % 46.2 % (42.8-82.8); PLATELET COUNT 238 K/MM3 (134-434); RBC 2.59 M/mm3 (4.00-5.60); WHITE BLOOD COUNT 6.6 K/mm3 (4.0-10.0)
[2018-09-08 08:24] LABS: ANION GAP 5 MMOL/L (8-16); BLOOD UREA NITROGEN 44 mg/dL (7-18); CALCIUM 7.6 mg/dL (8.5-10.1); CHLORIDE 105 mmol/L (98-107); CO2 32 mmol/L (21-32); CREATININE 1.7 mg/dL (0.55-1.3); GLUCOSE,RANDOM 86 mg/dL (74-106); MAGNESIUM 2.1 mg/dL (1.8-2.4); PHOSPHOROUS 3.5 mg/dL (2.5-4.9); POTASSIUM 4.1 mmol/L (3.5-5.1); SODIUM 142 mmol/L (136-145)
[2018-09-08] MEDS: APIXABAN 2.5 MG TABLET PO SCH ×2 (10:10→21:51)
[2018-09-08] MEDS: ACETAMINOPHEN 325 MG TABLET (FP) PO PRN (10:10)
[2018-09-08] MEDS: ALLOPURINOL 100 MG TABLET (FP) PO SCH (10:10)
--- NOTE | 2018-09-08 12:06 | PN ---
Progress Note, Physician Chief Complaint: patient admited to hospital for low BP did not take cardizem at home given low BP currently awake and alert BP in 90's systolic - Current Medication List Current Medications: Active Medications Acetaminophen (Tylenol -) 650 mg PO Q6H PRN PRN Reason: PAIN LEVEL 1 - 3 Last Admin: 09/08/18 10:10 Dose: 650 mg Allopurinol (Zyloprim -) 100 mg PO DAILY [facility] Last Admin: 09/08/18 10:10 Dose: 100 mg Apixaban (Eliquis -) 2.5 mg PO BID [facility] Last Admin: 09/08/18 10:10 Dose: 2.5 mg Atorvastatin Calcium (Lipitor -) 20 mg PO HS [facility] Diltiazem HCl (Cardizem Cd -) 240 mg PO DAILY [facility] Last Admin: 09/08/18 11:41 Dose: Not Given Docusate Sodium (Colace -) 300 mg PO HS [facility] Melatonin (Melatonin) 5 mg PO HS PRN PRN Reason: INSOMNIA Metoprolol Tartrate (Lopressor -) 25 mg PO TID [facility] Last Admin: 09/08/18 05:56 Dose: Not Given - Objective Vital Signs: Vital Signs Temperature 97.6 F 09/08/18 04:10 Pulse Rate 107 H 09/08/18 05:55 Respiratory Rate 20 09/08/18 05:55 Blood Pressure 96/69 09/08/18 05:55 O2 Sat by Pulse Oximetry (%) 94 L 09/08/18 04:05 Constitutional: Yes: Calm, Thin Cardiovascular: Yes: Pulse Irregular, S1, S2 Respiratory: Yes: CTA Bilaterally, Diminished (at bases) Gastrointestinal: Yes: Normal Bowel Sounds, Soft Edema: No Neurological: Yes: Alert, Oriented (to name) Labs: CBC, BMP 09/08/18 07:30 09/08/18 07:30 INR, PTT INR 1.44 (0.83-1.09) H 09/07/18 19:45 Problem List - Problems (1) Anemia Assessment/Plan: SC aranesp last dose on 09/03 transfuse if h/h drop further currently is 7.9 Code(s): D64.9 - ANEMIA, UNSPECIFIED Qualifiers: Anemia type: other cause Other causes of anemia: antineoplastic chemotherapy Qualified Code(s): D64.81 - Anemia due to antineoplastic chemotherapy; T45.1X5A - Adverse effect of antineoplastic and immunosuppressive drugs, initial encounter (2) Afib Assessment/Plan: eliquis telemetry caridzem and metoprolol Code(s): I48.91 - UNSPECIFIED ATRIAL FIBRILLATION Qualifiers: Atrial fibrillation type: chronic Qualified Code(s): I48.2 - Chronic atrial fibrillation (3) Hypotension Assessment/Plan: telemetry cardiology eval elevated lactic acid on admission now normal got iv vanco in ER cultures pending Code(s): I95.9 - HYPOTENSION, UNSPECIFIED (4) CLL (chronic lymphocytic leukemia) Assessment/Plan: chemo per heme Code(s): C91.10 - CHRONIC LYMPHOCYTIC LEUK OF B-CELL TYPE NOT ACHIEVE REMIS (5) Chronic kidney disease (CKD) Assessment/Plan: renal eval takes lasix at home 80/40mg Code(s): N18.9 - CHRONIC KIDNEY DISEASE, UNSPECIFIED Qualifiers: Chronic kidney disease stage: stage 3 (moderate) Qualified Code(s): N18.3 - Chronic kidney disease, stage 3 (moderate) (6) UTI (urinary tract infection) Assessment/Plan: chamberlain cath ID eval awaiting cultures Code(s): N39.0 - URINARY TRACT INFECTION, SITE NOT SPECIFIED
--- NOTE | 2018-09-08 12:43 | PN ---
Progress Note (short form) - Note Progress Note: Renal follow up for CKD This is a 87 year old gentleman with hx of CKD, NHL on tx, CHF who presented from home with weakness and low BP. Pt s/p recent discharge from [facility]. Vital Signs Temperature 97.8 F 09/08/18 14:53 Pulse Rate 109 H 09/08/18 14:53 Respiratory Rate 19 09/08/18 14:53 Blood Pressure 102/54 L 09/08/18 14:53 O2 Sat by Pulse Oximetry (%) 94 L 09/08/18 04:05 Intake & Output 09/05/18 09/06/18 09/07/18 09/08/18 23:59 23:59 23:59 23:59 Intake Total 1000 Output Total 200 Balance 800 Weight 58.967 kg 56.416 kg NAD awake and alert RRR, no M/R CTA, no rales or wheeze soft NT/ND No LE edema chamberlain in place CBC, BMP 09/08/18 07:30 09/08/18 07:30 Current Medications Acetaminophen (Tylenol -) 650 mg PO Q6H PRN PRN Reason: PAIN LEVEL 1 - 3 Last Admin: 09/08/18 10:10 Dose: 650 mg Allopurinol (Zyloprim -) 100 mg PO DAILY [facility] Last Admin: 09/08/18 10:10 Dose: 100 mg Apixaban (Eliquis -) 2.5 mg PO BID [facility] Last Admin: 09/08/18 10:10 Dose: 2.5 mg Atorvastatin Calcium (Lipitor -) 20 mg PO HS [facility] Diltiazem HCl (Cardizem Cd -) 240 mg PO DAILY [facility] Last Admin: 09/08/18 11:41 Dose: Not Given Docusate Sodium (Colace -) 300 mg PO HS [facility] Melatonin (Melatonin) 5 mg PO HS PRN PRN Reason: INSOMNIA Metoprolol Tartrate (Lopressor -) 25 mg PO TID [facility] Last Admin: 09/08/18 14:51 Dose: 25 mg 87 year old gentleman with hx of CKD, NHL on tx, CHF who presented from home with weakness and low BP and admitted for r/o sepsis #Suspected UTI #Hypotension #CKD #Anemia Continue emperic abx for now, follow up cultures Renal function stable, no indication for [employer] off IVF for now holding diuretics for now as pt does not have any edema Check iron studies, transfuse as per protocol Thank you Will follow Peewee Torres DO
--- NOTE | 2018-09-08 18:23 | CONS ---
DATE OF CONSULTATION: DATE OF DICTATION: 09/08/2018 INFECTIOUS DISEASE CONSULTATION HISTORY OF PRESENT ILLNESS: The patient is an 87-year-old male who was evaluated for sepsis. History is obtained from the chart as well as the patient and the patient's nephew present at the time of the examination. He has had multiple recent hospitalization, hospitalization most recently from August 14 through September 04 after presenting with syncope. At that time he was treated for congestive heart failure and gross hematuria. He now returns with reports of dizziness, weakness, and hypotension. He was seen in the emergency room where he was hypotensive and tachycardic. He was also noted to have hematuria, pyuria, and elevated lactic acid level. At the present time, he has no focal complaint. He complains of generalized weakness, no complaints of pain. He has an indwelling Resendiz catheter, which he reports was changed today. He denies any suprapubic or flank pain, no complaints of fever or chills. PAST MEDICAL HISTORY: Positive for CLL. History of non-Hodgkin's lymphoma, atrial fibrillation, chronic kidney disease, BPH, chronic anemia. PAST SURGICAL HISTORY: Status post ischemic bowel, status post resection in January of 2018. ALLERGIES: Coumadin. SOCIAL HISTORY: Lives at home. Nonsmoker. Nondrinker. SYSTEMS REVIEW: Neurologic: No loss of consciousness, seizure activity, focal weakness. Cardiac: Negative chest pain or palpitations. Respiratory: Negative for cough or sputum production. Gastrointestinal: Negative vomiting or diarrhea. Genitourinary: Positive for gross hematuria. LABORATORY DATA: White count 6.6, with 46 neutrophils, 44 lymphocytes, 6 monocytes. Hematocrit 24.7, platelet count 238, creatinine 1.7, lactic acid 3.0. Urinalysis 2255 white cells. Chest x-ray negative for acute infiltrate. PHYSICAL EXAMINATION: General: On exam, he is chronically ill appearing, weak, supine in bed, in no acute distress. Breathing is nonlabored. Vital signs: Temperature is 97.8, blood pressure 102/54, pulse 109 regular, respirations 90 per minute. HEENT: Sclerae anicteric. Cardiovascular: Heart sounds S1, S2. Lungs: Clear. Abdomen: Soft, no suprapubic or flank tenderness. Extremities: Negative for edema. IMPRESSION: 1. Urinary tract infection/possible sepsis secondary to urinary tract infection. 2. Hypotension, rule out early septic shock. 3. Lactic acidosis. 4. Chronic kidney disease. 5. Chronic anemia. Await sepsis workup. Empiric antibiotic coverage pending. Cultures with vancomycin 1 g IV piggyback stat dose plus cefepime 1 g IV piggyback every 12 hours. Supportive measures. Hydration. Will follow. Thank you for the kind referral. SHAUNA MACARIO M.D. [id number]
--- NOTE | 2018-09-08 20:44 | PN ---
Progress Note (short form) - Note Progress Note: ID Consult dictated UTI/possible sepsis secondary to UTI Obstructive uropathy / indwelling chamberlain catheter Azotemia Pending c/s empiric coverage vancomycin/ cefepime adjusted for azotemia
--- NOTE | 2018-09-08 21:30 | EKG ---
Test Reason : Blood Pressure : / mmHG Vent. Rate : 099 BPM Atrial Rate : 133 BPM P-R Int : 000 ms QRS Dur : 114 ms QT Int : 392 ms P-R-T Axes : 000 -80 -27 degrees QTc Int : 503 ms ATRIAL FIBRILLATION LEFT AXIS DEVIATION LOW VOLTAGE QRS RIGHT BUNDLE BRANCH BLOCK INFERIOR INFARCT (CITED ON OR BEFORE 23-JAN-2018) POSSIBLE ANTEROLATERAL INFARCT (CITED ON OR BEFORE 23-APR-2018) ABNORMAL ECG WHEN COMPARED WITH ECG OF 16-AUG-2018 06:10, Confirmed by SONA ROJO MD ([id number]) on 09/08/2018 9:30:09 PM Referred By: Confirmed By:SONA ROJO MD
[2018-09-08] MEDS ORDERED: DEXTROSE 5%-WATER 100 ML IVPB ONE (21:45)
[2018-09-08] MEDS ORDERED: CEFEPIME HCL 1 GM VIAL (RESTRICTED TO ID) ONE (21:45)
[2018-09-08] MEDS: MELATONIN 5 MG TABLETS PO PRN (21:50)
[2018-09-08] MEDS: VANCOMYCIN 1 GRAM (PRE-DOCKED) 1,000 MG/250 ML BAG IVPB SCH (21:51)
[2018-09-08] MEDS: ATORVASTATIN CA 20 MG TABLET (FP) PO SCH (21:51)
[2018-09-08] MEDS: CEFEPIME 1 GM in DEXTROSE 5%-WATER 100 ML IVPB SCH (21:51)
[2018-09-08] MEDS: DOCUSATE SODIUM 100 MG CAPSULE (FP) PO SCH (21:51)
[2018-09-09] MEDS: METOPROLOL TARTRATE 25 MG TABLET (FP) PO SCH ×3 (05:48→22:17)
[2018-09-09 06:54] LABS: BASO % 0.5 % (0-2.0); HEMATOCRIT 24.2 % (35.4-49); HEMOGLOBIN 7.7 GM/dL (11.7-16.9); LYMPH % 39.5 % (8-40); MCH 30.3 pg (25.7-33.7); MCHC 31.7 g/dl (32.0-35.9); MEAN CELL VOLUME 95.8 fl (80-96); MEAN PLT VOLUME 10.1 fl (7.5-11.1); MONO % 5.2 % (3.8-10.2); NEUT % 52.8 % (42.8-82.8); PLATELET COUNT 240 K/MM3 (134-434); RBC 2.53 M/mm3 (4.00-5.60); RDW 20.3 % (11.9-15.9); WHITE BLOOD COUNT 8.4 K/mm3 (4.0-10.0)
[2018-09-09 07:05] LABS: ALBUMIN 1.6 g/dl (3.4-5.0); ALK PHOS 98 U/L (45-117); ANION GAP 5 MMOL/L (8-16); BILIRUBIN,TOTAL 0.4 mg/dL (0.2-1); BLOOD UREA NITROGEN 37 mg/dL (7-18); CALCIUM 7.5 mg/dL (8.5-10.1); CHLORIDE 103 mmol/L (98-107); CO2 31 mmol/L (21-32); CREATININE 1.4 mg/dL (0.55-1.3); GLUCOSE,RANDOM 87 mg/dL (74-106); POTASSIUM 3.7 mmol/L (3.5-5.1); SGOT/AST 16 U/L (15-37); SGPT/ALT 14 U/L (13-61); SODIUM 139 mmol/L (136-145); TOT PROT 4.8 g/dl (6.4-8.2)
[2018-09-09] MEDS ORDERED: CEFEPIME HCL 1 GM VIAL (RESTRICTED TO ID) ONE ×2 (09:19→21:51)
[2018-09-09] MEDS ORDERED: DEXTROSE 5%-WATER 100 ML IVPB ONE ×2 (09:20→21:51)
[2018-09-09] MEDS: APIXABAN 2.5 MG TABLET PO SCH ×2 (11:35→22:12)
[2018-09-09] MEDS: CEFEPIME 1 GM in DEXTROSE 5%-WATER 100 ML IVPB SCH ×2 (11:35→22:03)
[2018-09-09] MEDS: ALLOPURINOL 100 MG TABLET (FP) PO SCH (11:35)
--- NOTE | 2018-09-09 12:13 | PN ---
Progress Note, Physician Chief Complaint: UTI Hypotension Anemia History of Present Illness: NAD Seen by ID Started on IV abx UC- contaminated due to indwelling chamberlain Lactic acid normalized Nephrology on board Diuretics on hold-not indicated Awaiting Cardiology consult - Current Medication List Current Medications: Active Medications Acetaminophen (Tylenol -) 650 mg PO Q6H PRN PRN Reason: PAIN LEVEL 1 - 3 Last Admin: 09/08/18 10:10 Dose: 650 mg Allopurinol (Zyloprim -) 100 mg PO DAILY [facility] Last Admin: 09/09/18 11:35 Dose: 100 mg Apixaban (Eliquis -) 2.5 mg PO BID [facility] Last Admin: 09/09/18 11:35 Dose: 2.5 mg Atorvastatin Calcium (Lipitor -) 20 mg PO HS [facility] Last Admin: 09/08/18 21:51 Dose: 20 mg Diltiazem HCl (Cardizem Cd -) 240 mg PO DAILY [facility] Last Admin: 09/09/18 11:35 Dose: 240 mg Docusate Sodium (Colace -) 300 mg PO HS [facility] Last Admin: 09/08/18 21:51 Dose: 300 mg Vancomycin HCl (Vancomycin (Pre-Docked)) 1,000 mg in 250 mls @ 166.667 mls/hr IVPB DAILY@2200 [facility]; Protocol Last Admin: 09/08/18 21:51 Dose: 166.667 mls/hr Cefepime HCl 1 gm/ Dextrose 100 mls @ 100 mls/hr IVPB BID [facility]; Protocol Last Admin: 09/09/18 11:35 Dose: 100 mls/hr Melatonin (Melatonin) 5 mg PO HS PRN PRN Reason: INSOMNIA Last Admin: 09/08/18 21:50 Dose: 5 mg Metoprolol Tartrate (Lopressor -) 25 mg PO TID [facility] Last Admin: 09/09/18 05:48 Dose: 25 mg - Objective Vital Signs: Vital Signs Temperature 97.9 F 09/09/18 09:00 Pulse Rate 101 H 09/09/18 09:00 Respiratory Rate 20 09/09/18 09:00 Blood Pressure 111/52 L 09/09/18 09:00 O2 Sat by Pulse Oximetry (%) 96 09/09/18 09:00 Constitutional: Yes: No Distress, Calm, Cachectic Cardiovascular: Yes: Pulse Irregular Respiratory: Yes: Regular Gastrointestinal: Yes: Normal Bowel Sounds, Soft Musculoskeletal: Yes: Muscle Weakness Extremities: Yes: WNL Edema: No Peripheral Pulses WNL: Yes Neurological: Yes: Alert, Oriented Psychiatric: Yes: Alert, Oriented Labs: CBC, BMP 09/09/18 05:30 09/09/18 05:30 INR, PTT INR 1.44 (0.83-1.09) H 09/07/18 19:45 Problem List - Problems (1) Anemia Assessment/Plan: -2/2 to bleeding in the bladder -On Eliquis -chronically anemiac -Recent Iron studies normal -Monitor trend -Conservative Transfusion to avoid fluid overload, only if Hg <7.0 Code(s): D64.9 - ANEMIA, UNSPECIFIED Qualifiers: Anemia type: other cause Other causes of anemia: antineoplastic chemotherapy Qualified Code(s): D64.81 - Anemia due to antineoplastic chemotherapy; T45.1X5A - Adverse effect of antineoplastic and immunosuppressive drugs, initial encounter (2) Hypotension Assessment/Plan: -Diuretics being held -BP okay now Code(s): I95.9 - HYPOTENSION, UNSPECIFIED (3) Afib Assessment/Plan: -rate controlled -On CCB -Awaiting cardiology consult -Tele monitoring Code(s): I48.91 - UNSPECIFIED ATRIAL FIBRILLATION Qualifiers: Atrial fibrillation type: chronic Qualified Code(s): I48.2 - Chronic atrial fibrillation (4) UTI (urinary tract infection) Assessment/Plan: -UC contaminated -ID on board -Lactic acid normalized -IV abx -afebrile -WBC normal Code(s): N39.0 - URINARY TRACT INFECTION, SITE NOT SPECIFIED Assessment/Plan see problem list Physical therapy
--- NOTE | 2018-09-09 17:13 | PN ---
Progress Note (short form) - Note Progress Note: Renal follow up for CKD Pt seen and examined at the bedside no acute complaints feels better BP is better Vital Signs Temperature 97.9 F 09/09/18 14:00 Pulse Rate 103 H 09/09/18 14:00 Respiratory Rate 20 09/09/18 09:00 Blood Pressure 105/59 L 09/09/18 14:00 O2 Sat by Pulse Oximetry (%) 96 09/09/18 09:00 Intake & Output 09/06/18 09/07/18 09/08/18 09/09/18 23:59 23:59 23:59 23:59 Intake Total 1300 250 Output Total 600 1100 Balance 700 -850 Weight 58.967 kg 56.416 kg 56.245 kg NAD awake and alert RRR, no M/R CTA, no rales or wheeze soft NT/ND No LE edema chamberlain in place CBC, BMP 09/09/18 05:30 09/09/18 05:30 Current Medications Acetaminophen (Tylenol -) 650 mg PO Q6H PRN PRN Reason: PAIN LEVEL 1 - 3 Last Admin: 09/08/18 10:10 Dose: 650 mg Allopurinol (Zyloprim -) 100 mg PO DAILY [facility] Last Admin: 09/09/18 11:35 Dose: 100 mg Apixaban (Eliquis -) 2.5 mg PO BID [facility] Last Admin: 09/09/18 11:35 Dose: 2.5 mg Atorvastatin Calcium (Lipitor -) 20 mg PO HS [facility] Last Admin: 09/08/18 21:51 Dose: 20 mg Diltiazem HCl (Cardizem Cd -) 240 mg PO DAILY [facility] Last Admin: 09/09/18 11:35 Dose: 240 mg Docusate Sodium (Colace -) 300 mg PO HS [facility] Last Admin: 09/08/18 21:51 Dose: 300 mg Vancomycin HCl (Vancomycin (Pre-Docked)) 1,000 mg in 250 mls @ 166.667 mls/hr IVPB DAILY@2200 [facility]; Protocol Last Admin: 09/08/18 21:51 Dose: 166.667 mls/hr Cefepime HCl 1 gm/ Dextrose 100 mls @ 100 mls/hr IVPB BID [facility]; Protocol Last Admin: 09/09/18 11:35 Dose: 100 mls/hr Melatonin (Melatonin) 5 mg PO HS PRN PRN Reason: INSOMNIA Last Admin: 09/08/18 21:50 Dose: 5 mg Metoprolol Tartrate (Lopressor -) 25 mg PO TID [facility] Last Admin: 09/09/18 15:32 Dose: 25 mg 87 year old gentleman with hx of CKD, NHL on tx, CHF who presented from home with weakness and low BP and admitted for r/o sepsis #Suspected UTI #Hypotension #CKD #Anemia Renal function stable holding diuretics for the time being Hgb noted, holding transfusion for now will give SC Aranesp Iron saturation was 25% from 09/01 Continue Abx Peewee Torres DO
[2018-09-09] MEDS ORDERED: Darbepoetin Alfa in Polysorbat 25 MCG/0.4 ML DISP.SYRIN SQ ONE (17:30)
[2018-09-09] MEDS: VANCOMYCIN 1 GRAM (PRE-DOCKED) 1,000 MG/250 ML BAG IVPB SCH (22:03)
[2018-09-09] MEDS: DOCUSATE SODIUM 100 MG CAPSULE (FP) PO SCH (22:12)
[2018-09-09] MEDS: ATORVASTATIN CA 20 MG TABLET (FP) PO SCH (22:12)
[2018-09-09] MEDS: MELATONIN 5 MG TABLETS PO PRN (22:12)
[2018-09-10 06:17] LABS: BASO % 0.5 % (0-2.0); EOS % 2.1 % (0-4.5); HEMOGLOBIN 7.6 GM/dL (11.7-16.9); MCH 30.3 pg (25.7-33.7); MCHC 31.8 g/dl (32.0-35.9); MEAN CELL VOLUME 95.3 fl (80-96); MEAN PLT VOLUME 9.9 fl (7.5-11.1); MONO % 8.1 % (3.8-10.2); NEUT % 44.3 % (42.8-82.8); PLATELET COUNT 214 K/MM3 (134-434); RBC 2.51 M/mm3 (4.00-5.60); WHITE BLOOD COUNT 8.5 K/mm3 (4.0-10.0)
[2018-09-10] MEDS: METOPROLOL TARTRATE 25 MG TABLET (FP) PO SCH ×3 (06:46→21:21)
[2018-09-10 07:09] LABS: ANION GAP 5 MMOL/L (8-16); BLOOD UREA NITROGEN 31 mg/dL (7-18); CALCIUM 7.4 mg/dL (8.5-10.1); CHLORIDE 106 mmol/L (98-107); CO2 29 mmol/L (21-32); CREATININE 1.4 mg/dL (0.55-1.3); GLUCOSE,RANDOM 79 mg/dL (74-106); MAGNESIUM 1.8 mg/dL (1.8-2.4); PHOSPHOROUS 2.8 mg/dL (2.5-4.9); SODIUM 139 mmol/L (136-145)
[2018-09-10] MEDS ORDERED: CEFEPIME HCL 1 GM VIAL (RESTRICTED TO ID) ONE ×2 (09:26→21:12)
[2018-09-10] MEDS ORDERED: DEXTROSE 5%-WATER 100 ML IVPB ONE ×2 (09:26→21:13)
[2018-09-10] MEDS: CEFEPIME 1 GM in DEXTROSE 5%-WATER 100 ML IVPB SCH ×2 (09:47→21:22)
[2018-09-10] MEDS: ALLOPURINOL 100 MG TABLET (FP) PO SCH (09:48)
[2018-09-10] MEDS: APIXABAN 2.5 MG TABLET PO SCH ×2 (09:48→21:21)
--- NOTE | 2018-09-10 12:19 | PN ---
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 Suspect UTI/possible sepsis secondary to UTI with obstructive uropathy / indwelling chamberlain catheter and azotemia. He was placed on empiric coverage vancomycin/ cefepime adjusted for azotemia pending C&S. - Current Medication List Current Medications: Active Medications Acetaminophen (Tylenol -) 650 mg PO Q6H PRN PRN Reason: PAIN LEVEL 1 - 3 Last Admin: 09/08/18 10:10 Dose: 650 mg Allopurinol (Zyloprim -) 100 mg PO DAILY [facility] Last Admin: 09/10/18 09:48 Dose: 100 mg Apixaban (Eliquis -) 2.5 mg PO BID [facility] Last Admin: 09/10/18 09:48 Dose: 2.5 mg Atorvastatin Calcium (Lipitor -) 20 mg PO HS [facility] Last Admin: 09/09/18 22:12 Dose: 20 mg Diltiazem HCl (Cardizem Cd -) 240 mg PO DAILY [facility] Last Admin: 09/09/18 11:35 Dose: 240 mg Docusate Sodium (Colace -) 300 mg PO HS [facility] Last Admin: 09/09/18 22:12 Dose: 300 mg Vancomycin HCl (Vancomycin (Pre-Docked)) 1,000 mg in 250 mls @ 166.667 mls/hr IVPB DAILY@2200 [facility]; Protocol Last Admin: 09/09/18 22:03 Dose: 166.667 mls/hr Cefepime HCl 1 gm/ Dextrose 100 mls @ 100 mls/hr IVPB BID [facility]; Protocol Last Admin: 09/10/18 09:47 Dose: 100 mls/hr Melatonin (Melatonin) 5 mg PO HS PRN PRN Reason: INSOMNIA Last Admin: 09/09/18 22:12 Dose: 5 mg Metoprolol Tartrate (Lopressor -) 25 mg PO TID [facility] Last Admin: 09/10/18 06:46 Dose: Not Given - Objective Vital Signs: Vital Signs Temperature 97 F L 09/10/18 09:45 Pulse Rate 98 H 09/10/18 09:46 Respiratory Rate 20 09/10/18 09:46 Blood Pressure 90/49 L 09/10/18 09:46 O2 Sat by Pulse Oximetry (%) 95 09/10/18 09:00 Constitutional: Yes: No Distress, Calm, Thin Neck: Yes: Supple Cardiovascular: Yes: Pulse Irregular Respiratory: Yes: Regular, Diminished, On Nasal O2 Gastrointestinal: Yes: Normal Bowel Sounds, Soft Genitourinary: Yes: Chamberlain Present, Hematuria Edema: No Labs: CBC, BMP 09/10/18 05:30 09/10/18 05:30 INR, PTT INR 1.44 (0.83-1.09) H 09/07/18 19:45 - ....Imaging EKG: Report Reviewed (Tele: Rate-controlled afib) Problem List - Problems (1) Anemia Code(s): D64.9 - ANEMIA, UNSPECIFIED Qualifiers: Anemia type: other cause Other causes of anemia: antineoplastic chemotherapy Qualified Code(s): D64.81 - Anemia due to antineoplastic chemotherapy; T45.1X5A - Adverse effect of antineoplastic and immunosuppressive drugs, initial encounter (2) Hematuria Code(s): R31.9 - HEMATURIA, UNSPECIFIED Qualifiers: Hematuria type: gross Qualified Code(s): R31.0 - Gross hematuria (3) Afib Code(s): I48.91 - UNSPECIFIED ATRIAL FIBRILLATION Qualifiers: Atrial fibrillation type: chronic Qualified Code(s): I48.2 - Chronic atrial fibrillation (4) Chronic anticoagulation Code(s): Z79.01 - SAFETY FIRE BOSS (CURRENT) USE OF ANTICOAGULANTS (5) Chronic kidney disease (CKD) Code(s): N18.9 - CHRONIC KIDNEY DISEASE, UNSPECIFIED Qualifiers: Chronic kidney disease stage: stage 3 (moderate) Qualified Code(s): N18.3 - Chronic kidney disease, stage 3 (moderate) (6) Chronic lymphocytic leukemia (CLL), B-cell Code(s): C91.10 - CHRONIC LYMPHOCYTIC LEUK OF B-CELL TYPE NOT ACHIEVE REMIS Qualifiers: Leukemia Active/Remission status: in remission Qualified Code(s): C91.11 - Chronic lymphocytic leukemia of B-cell type in remission (7) Hyperlipidemia Code(s): E78.5 - HYPERLIPIDEMIA, UNSPECIFIED Qualifiers: Hyperlipidemia type: pure hypercholesterolemia Qualified Code(s): E78.00 - Pure hypercholesterolemia, unspecified; E78.0 - Pure hypercholesterolemia (8) Pneumoperitoneum Code(s): K66.8 - OTHER SPECIFIED DISORDERS OF PERITONEUM (9) UTI (urinary tract infection) Code(s): N39.0 - URINARY TRACT INFECTION, SITE NOT SPECIFIED Assessment/Plan Echo: 01/23/2018 Normal biventricular size and fxn, mild-mod TR, mild , mod LAE, mild HILTON 1. UTI/possible sepsis source 2. Recent cysto clot evacuation and chamberlain placement, for hematuria since resolved 2. H/o syncope in setting of anemia and intravascular volume depletion from overdiuresis 3. Asymptomatic pneumoperitoneum w/o obvious perforation source 4. 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 CAD angina pectoris, stable 6. Chronic diastolic heart failure 7. Persistent atrial fibrillation with RVR [id number] score of 6 on Eliquis 8. History of CVA/TIA 9. HTN 10. Hypercholesterolemia 11. 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 History of recurrent diverticular bleed 13. H/o Acute on CKD (pre-renal) referable to volume depletion from overdiuresis , chronic mild-moderate left hydronephrosis 14. 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 Continue Eliquis 2.5 BID, continue Metoprolol 25 TID, Cardizem 240 QD and Lipitor 20 QHS 2. Transfuse to maintain Hgb equal or > 8.0 3. Holding diuretics with monitor renal function and electrolytes 4. Empiric coverage vancomycin/cefepime per C&S 5. Observation for asymptomatic pneumo-peritoneum given multiple co-morbidities
--- NOTE | 2018-09-10 15:42 | PN ---
Progress Note (short form) - Note Progress Note: Renal follow up for CKD Pt seen and examined at the bedside no acute complaints Vital Signs Temperature 97.8 F 09/10/18 14:00 Pulse Rate 109 H 09/10/18 14:00 Respiratory Rate 20 09/10/18 14:00 Blood Pressure 104/53 L 09/10/18 14:00 O2 Sat by Pulse Oximetry (%) 95 09/10/18 09:00 Intake & Output 09/07/18 09/08/18 09/09/18 09/10/18 23:59 23:59 23:59 23:59 Intake Total 1300 370 490 Output Total 600 1250 Balance 700 -880 490 Weight 58.967 kg 56.416 kg 56.245 kg NAD awake and alert RRR, no M/R CTA, no rales or wheeze soft NT/ND No LE edema chamberlain in place CBC, BMP 09/10/18 05:30 09/10/18 05:30 Current Medications Acetaminophen (Tylenol -) 650 mg PO Q6H PRN PRN Reason: PAIN LEVEL 1 - 3 Last Admin: 09/08/18 10:10 Dose: 650 mg Allopurinol (Zyloprim -) 100 mg PO DAILY [facility] Last Admin: 09/10/18 09:48 Dose: 100 mg Apixaban (Eliquis -) 2.5 mg PO BID [facility] Last Admin: 09/10/18 09:48 Dose: 2.5 mg Atorvastatin Calcium (Lipitor -) 20 mg PO HS [facility] Last Admin: 09/09/18 22:12 Dose: 20 mg Diltiazem HCl (Cardizem Cd -) 240 mg PO DAILY [facility] Last Admin: 09/10/18 15:03 Dose: Not Given Docusate Sodium (Colace -) 300 mg PO HS [facility] Last Admin: 09/09/18 22:12 Dose: 300 mg Vancomycin HCl (Vancomycin (Pre-Docked)) 1,000 mg in 250 mls @ 166.667 mls/hr IVPB DAILY@2200 [facility]; Protocol Last Admin: 09/09/18 22:03 Dose: 166.667 mls/hr Cefepime HCl 1 gm/ Dextrose 100 mls @ 100 mls/hr IVPB BID [facility]; Protocol Last Admin: 09/10/18 09:47 Dose: 100 mls/hr Melatonin (Melatonin) 5 mg PO HS PRN PRN Reason: INSOMNIA Last Admin: 09/09/18 22:12 Dose: 5 mg Metoprolol Tartrate (Lopressor -) 25 mg PO TID [facility] Last Admin: 09/10/18 15:03 Dose: Not Given 87 year old gentleman with hx of CKD, NHL on tx, CHF who presented from home with weakness and low BP and admitted for r/o sepsis #Suspected UTI #Hypotension #CKD #Anemia Renal function stable can resume diuretics if pt develops edema s/p SC Aranesp Iron saturation was 25% from 09/01 Continue Abx as per ARI Torres DO
--- NOTE | 2018-09-10 18:48 | PN ---
Progress Note, Physician Chief Complaint: UTI Hypotension Anemia History of Present Illness: NAD Seen by ID Started on IV abx UC- contaminated due to indwelling chamberlain Lactic acid normalized Nephrology on board Diuretics on hold-not indicated - Current Medication List Current Medications: Active Medications Acetaminophen (Tylenol -) 650 mg PO Q6H PRN PRN Reason: PAIN LEVEL 1 - 3 Last Admin: 09/08/18 10:10 Dose: 650 mg Allopurinol (Zyloprim -) 100 mg PO DAILY [facility] Last Admin: 09/10/18 09:48 Dose: 100 mg Apixaban (Eliquis -) 2.5 mg PO BID [facility] Last Admin: 09/10/18 09:48 Dose: 2.5 mg Atorvastatin Calcium (Lipitor -) 20 mg PO HS [facility] Last Admin: 09/09/18 22:12 Dose: 20 mg Diltiazem HCl (Cardizem Cd -) 240 mg PO DAILY [facility] Last Admin: 09/10/18 15:03 Dose: Not Given Docusate Sodium (Colace -) 300 mg PO HS [facility] Last Admin: 09/09/18 22:12 Dose: 300 mg Vancomycin HCl (Vancomycin (Pre-Docked)) 1,000 mg in 250 mls @ 166.667 mls/hr IVPB DAILY@2200 [facility]; Protocol Last Admin: 09/09/18 22:03 Dose: 166.667 mls/hr Cefepime HCl 1 gm/ Dextrose 100 mls @ 100 mls/hr IVPB BID [facility]; Protocol Last Admin: 09/10/18 09:47 Dose: 100 mls/hr Melatonin (Melatonin) 5 mg PO HS PRN PRN Reason: INSOMNIA Last Admin: 09/09/18 22:12 Dose: 5 mg Metoprolol Tartrate (Lopressor -) 25 mg PO TID [facility] Last Admin: 09/10/18 15:03 Dose: Not Given - Objective Vital Signs: Vital Signs Temperature 97.8 F 09/10/18 14:00 Pulse Rate 109 H 09/10/18 14:00 Respiratory Rate 20 09/10/18 14:00 Blood Pressure 104/53 L 09/10/18 14:00 O2 Sat by Pulse Oximetry (%) 95 09/10/18 09:00 Constitutional: Yes: No Distress, Calm, Cachectic Cardiovascular: Yes: Pulse Irregular Respiratory: Yes: Regular Genitourinary: Yes: Chamberlain Present Musculoskeletal: Yes: Muscle Weakness Edema: No Peripheral Pulses WNL: Yes Neurological: Yes: Alert, Oriented Psychiatric: Yes: Alert, Oriented Labs: CBC, BMP 09/10/18 05:30 09/10/18 05:30 INR, PTT INR 1.44 (0.83-1.09) H 09/07/18 19:45 Problem List - Problems (1) Anemia Assessment/Plan: -2/2 to bleeding in the bladder -On Eliquis -chronically anemic -Recent Iron studies normal -Monitor trend -Conservative Transfusion to avoid fluid overload, only if Hg <7.0 Code(s): D64.9 - ANEMIA, UNSPECIFIED Qualifiers: Anemia type: other cause Other causes of anemia: antineoplastic chemotherapy Qualified Code(s): D64.81 - Anemia due to antineoplastic chemotherapy; T45.1X5A - Adverse effect of antineoplastic and immunosuppressive drugs, initial encounter (2) Hypotension Assessment/Plan: -Diuretics being held -BP still running low -midodrine? if suggested with cardiology -orthostatic BP Code(s): I95.9 - HYPOTENSION, UNSPECIFIED (3) Afib Assessment/Plan: -rate controlled -On CCB -Awaiting cardiology consult -Tele monitoring Code(s): I48.91 - UNSPECIFIED ATRIAL FIBRILLATION Qualifiers: Atrial fibrillation type: chronic Qualified Code(s): I48.2 - Chronic atrial fibrillation (4) UTI (urinary tract infection) Assessment/Plan: -UC contaminated -ID on board -Lactic acid normalized -IV abx -afebrile -WBC normal Code(s): N39.0 - URINARY TRACT INFECTION, SITE NOT SPECIFIED Assessment/Plan see problem list Physical therapy
[2018-09-10] MEDS: MELATONIN 5 MG TABLETS PO PRN (21:21)
[2018-09-10] MEDS: ATORVASTATIN CA 20 MG TABLET (FP) PO SCH (21:21)
[2018-09-10] MEDS: DOCUSATE SODIUM 100 MG CAPSULE (FP) PO SCH (21:22)
[2018-09-10] MEDS: VANCOMYCIN 1 GRAM (PRE-DOCKED) 1,000 MG/250 ML BAG IVPB SCH (21:22)
[2018-09-11] MEDS: ACETAMINOPHEN 325 MG TABLET (FP) PO PRN (00:45)
[2018-09-11 06:28] LABS: BASO % 0.8 % (0-2.0); EOS % 3.6 % (0-4.5); HEMATOCRIT 22.6 % (35.4-49); HEMOGLOBIN 7.3 GM/dL (11.7-16.9); LYMPH % 47.1 % (8-40); MCH 30.7 pg (25.7-33.7); MCHC 32.4 g/dl (32.0-35.9); MEAN CELL VOLUME 94.9 fl (80-96); MEAN PLT VOLUME 9.9 fl (7.5-11.1); NEUT % 41.5 % (42.8-82.8); PLATELET COUNT 193 K/MM3 (134-434); RBC 2.38 M/mm3 (4.00-5.60); RDW 19.6 % (11.9-15.9); WHITE BLOOD COUNT 6.2 K/mm3 (4.0-10.0)
[2018-09-11] MEDS: METOPROLOL TARTRATE 25 MG TABLET (FP) PO SCH (06:35)
[2018-09-11 07:12] LABS: ALBUMIN 1.4 g/dl (3.4-5.0); ALK PHOS 107 U/L (45-117); ANION GAP 6 MMOL/L (8-16); BILIRUBIN,TOTAL 0.3 mg/dL (0.2-1); BLOOD UREA NITROGEN 29 mg/dL (7-18); CALCIUM 7.2 mg/dL (8.5-10.1); CHLORIDE 110 mmol/L (98-107); CO2 29 mmol/L (21-32); CREATININE 1.2 mg/dL (0.55-1.3); GLUCOSE,RANDOM 77 mg/dL (74-106); PHOSPHOROUS 2.3 mg/dL (2.5-4.9); POTASSIUM 4.6 mmol/L (3.5-5.1); SGOT/AST 11 U/L (15-37); SGPT/ALT 13 U/L (13-61); SODIUM 144 mmol/L (136-145); TOT PROT 4.7 g/dl (6.4-8.2)
[2018-09-11] MEDS ORDERED: CEFEPIME HCL 1 GM VIAL (RESTRICTED TO ID) ONE (09:52)
[2018-09-11] MEDS ORDERED: DEXTROSE 5%-WATER 100 ML IVPB ONE (09:53)
[2018-09-11] MEDS: ALLOPURINOL 100 MG TABLET (FP) PO SCH (09:55)
[2018-09-11] MEDS: CEFEPIME 1 GM in DEXTROSE 5%-WATER 100 ML IVPB SCH ×2 (09:55→22:30)
[2018-09-11] MEDS: APIXABAN 2.5 MG TABLET PO SCH ×2 (09:55→22:05)
--- NOTE | 2018-09-11 10:40 | PN ---
Progress Note, Physician History of Present Illness: Hypotensive, light-headed with rate-controlled afib. Admitted for UTI/possible sepsis secondary to UTI with obstructive uropathy / indwelling chamberlain catheter and azotemia and placed on empiric coverage vancomycin/ cefepime adjusted for azotemia pending C&S. - Current Medication List Current Medications: Active Medications Acetaminophen (Tylenol -) 650 mg PO Q6H PRN PRN Reason: PAIN LEVEL 1 - 3 Last Admin: 09/11/18 00:45 Dose: 650 mg Allopurinol (Zyloprim -) 100 mg PO DAILY [facility] Last Admin: 09/11/18 09:55 Dose: 100 mg Apixaban (Eliquis -) 2.5 mg PO BID [facility] Last Admin: 09/11/18 09:55 Dose: 2.5 mg Atorvastatin Calcium (Lipitor -) 20 mg PO HS [facility] Last Admin: 09/10/18 21:21 Dose: 20 mg Diltiazem HCl (Cardizem Cd -) 240 mg PO DAILY [facility] Last Admin: 09/11/18 09:51 Dose: Not Given Docusate Sodium (Colace -) 300 mg PO HS [facility] Last Admin: 09/10/18 21:22 Dose: 300 mg Vancomycin HCl (Vancomycin (Pre-Docked)) 1,000 mg in 250 mls @ 166.667 mls/hr IVPB DAILY@2200 [facility]; Protocol Last Admin: 09/10/18 21:22 Dose: 166.667 mls/hr Cefepime HCl 1 gm/ Dextrose 100 mls @ 100 mls/hr IVPB BID [facility]; Protocol Last Admin: 09/11/18 09:55 Dose: 100 mls/hr Melatonin (Melatonin) 5 mg PO HS PRN PRN Reason: INSOMNIA Last Admin: 09/10/18 21:21 Dose: 5 mg Metoprolol Tartrate (Lopressor -) 25 mg PO TID [facility] Last Admin: 09/11/18 06:35 Dose: 25 mg - Objective Vital Signs: Vital Signs Temperature 97.7 F 09/11/18 08:42 Pulse Rate 98 H 09/11/18 09:44 Respiratory Rate 18 09/11/18 09:00 Blood Pressure 79/55 L 09/11/18 09:44 O2 Sat by Pulse Oximetry (%) 96 09/11/18 09:00 Constitutional: Yes: No Distress, Calm, Thin Neck: Yes: Supple Cardiovascular: Yes: Pulse Irregular Respiratory: Yes: Regular, Diminished, On Nasal O2 Gastrointestinal: Yes: Normal Bowel Sounds, Soft Genitourinary: Yes: Chamberlain Present Edema: No Labs: CBC, BMP 09/11/18 05:30 09/11/18 05:30 INR, PTT INR 1.44 (0.83-1.09) H 09/07/18 19:45 - ....Imaging EKG: Report Reviewed (Tele: Rate-controlled afib) Problem List - Problems (1) Anemia Code(s): D64.9 - ANEMIA, UNSPECIFIED Qualifiers: Anemia type: other cause Other causes of anemia: antineoplastic chemotherapy Qualified Code(s): D64.81 - Anemia due to antineoplastic chemotherapy; T45.1X5A - Adverse effect of antineoplastic and immunosuppressive drugs, initial encounter (2) Hematuria Code(s): R31.9 - HEMATURIA, UNSPECIFIED Qualifiers: Hematuria type: gross Qualified Code(s): R31.0 - Gross hematuria (3) Afib Code(s): I48.91 - UNSPECIFIED ATRIAL FIBRILLATION Qualifiers: Atrial fibrillation type: chronic Qualified Code(s): I48.2 - Chronic atrial fibrillation (4) Chronic anticoagulation Code(s): Z79.01 - CLINICAL LABORATORY MANAGER (CURRENT) USE OF ANTICOAGULANTS (5) Chronic kidney disease (CKD) Code(s): N18.9 - CHRONIC KIDNEY DISEASE, UNSPECIFIED Qualifiers: Chronic kidney disease stage: stage 3 (moderate) Qualified Code(s): N18.3 - Chronic kidney disease, stage 3 (moderate) (6) Chronic lymphocytic leukemia (CLL), B-cell Code(s): C91.10 - CHRONIC LYMPHOCYTIC LEUK OF B-CELL TYPE NOT ACHIEVE REMIS Qualifiers: Leukemia Active/Remission status: in remission Qualified Code(s): C91.11 - Chronic lymphocytic leukemia of B-cell type in remission (7) Hyperlipidemia Code(s): E78.5 - HYPERLIPIDEMIA, UNSPECIFIED Qualifiers: Hyperlipidemia type: pure hypercholesterolemia Qualified Code(s): E78.00 - Pure hypercholesterolemia, unspecified; E78.0 - Pure hypercholesterolemia (8) Pneumoperitoneum Code(s): K66.8 - OTHER SPECIFIED DISORDERS OF PERITONEUM (9) UTI (urinary tract infection) Code(s): N39.0 - URINARY TRACT INFECTION, SITE NOT SPECIFIED Assessment/Plan Echo: 01/23/2018 Normal biventricular size and fxn, mild-mod TR, mild , mod LAE, mild [place] 1. Hypotension-> UTI/septic shock source 2. Recent cysto clot evacuation and chamberlain placement, for hematuria since resolved 3. H/o syncope in setting of anemia and intravascular volume depletion from overdiuresis 4. Asymptomatic pneumoperitoneum w/o obvious perforation source 5. 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 CAD angina pectoris, stable 7. Chronic diastolic heart failure 8. Persistent atrial fibrillation with RVR [id number] score of 6 on Eliquis 9. History of CVA/TIA 10. HTN 11. Hypercholesterolemia 12. 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 History of recurrent diverticular bleed 14. Acute on CKD (pre-renal) with chronic mild-moderate left hydronephrosis resolving 15. 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 IVF and pressors to maintain MAP>65 mmHg 2. Empiric coverage vancomycin/cefepime per C&S 3. Holding diuretics with monitor renal function and electrolytes 4. Continue Eliquis 2.5 BID with caution and Lipitor 20 qhs, hold Metoprolol 25 TID, Cardizem 240 QD pending hemodynamic stability 5. Transfuse to maintain Hgb equal or > 8.0 6. Observation for asymptomatic pneumo-peritoneum given multiple co-morbidities
[2018-09-11] MEDS ORDERED: SODIUM CHLORIDE 500 ML IV STA (10:53)
--- NOTE | 2018-09-11 10:58 | PN ---
Progress Note, Physician Chief Complaint: patient with low BP today 70' systolic - BP meds held NS bolus ordered - Current Medication List Current Medications: Active Medications Acetaminophen (Tylenol -) 650 mg PO Q6H PRN PRN Reason: PAIN LEVEL 1 - 3 Last Admin: 09/11/18 00:45 Dose: 650 mg Allopurinol (Zyloprim -) 100 mg PO DAILY [facility] Last Admin: 09/11/18 09:55 Dose: 100 mg Apixaban (Eliquis -) 2.5 mg PO BID [facility] Last Admin: 09/11/18 09:55 Dose: 2.5 mg Atorvastatin Calcium (Lipitor -) 20 mg PO HS [facility] Last Admin: 09/10/18 21:21 Dose: 20 mg Diltiazem HCl (Cardizem Cd -) 240 mg PO DAILY [facility] Last Admin: 09/11/18 09:51 Dose: Not Given Docusate Sodium (Colace -) 300 mg PO HS [facility] Last Admin: 09/10/18 21:22 Dose: 300 mg Vancomycin HCl (Vancomycin (Pre-Docked)) 1,000 mg in 250 mls @ 166.667 mls/hr IVPB DAILY@2200 [facility]; Protocol Last Admin: 09/10/18 21:22 Dose: 166.667 mls/hr Cefepime HCl 1 gm/ Dextrose 100 mls @ 100 mls/hr IVPB BID [facility]; Protocol Last Admin: 09/11/18 09:55 Dose: 100 mls/hr Melatonin (Melatonin) 5 mg PO HS PRN PRN Reason: INSOMNIA Last Admin: 09/10/18 21:21 Dose: 5 mg Metoprolol Tartrate (Lopressor -) 25 mg PO TID [facility] Last Admin: 09/11/18 06:35 Dose: 25 mg - Objective Vital Signs: Vital Signs Temperature 97.7 F 09/11/18 08:42 Pulse Rate 98 H 09/11/18 09:44 Respiratory Rate 18 09/11/18 09:00 Blood Pressure 79/55 L 09/11/18 09:44 O2 Sat by Pulse Oximetry (%) 96 09/11/18 09:00 Constitutional: Yes: Calm Cardiovascular: Yes: Pulse Irregular, S1, S2 Respiratory: Yes: Diminished Gastrointestinal: Yes: Normal Bowel Sounds, Soft Edema: No Neurological: Yes: Alert, Oriented Labs: CBC, BMP 09/11/18 05:30 09/11/18 05:30 INR, PTT INR 1.44 (0.83-1.09) H 09/07/18 19:45 Problem List - Problems (1) UTI (urinary tract infection) Assessment/Plan: change chamberlain and collect new culture-previous cultures are contaminated started on iv abx cefepime and vancomycin Code(s): N39.0 - URINARY TRACT INFECTION, SITE NOT SPECIFIED (2) Hypotension Assessment/Plan: hold metoprolol and cardizem NS bolus low h/h with hematuria- prbc today ICu monitoring most likely hypotension secondary to volume depletion- possibly septic shock given that patient has UTI on iv abx awaiting bed in icu ct scan of head neurology evaluation Code(s): I95.9 - HYPOTENSION, UNSPECIFIED (3) Anemia Assessment/Plan: SC aranesp last dose on 09/09 PRBC today as h/h is 7.3 Code(s): D64.9 - ANEMIA, UNSPECIFIED Qualifiers: Anemia type: other cause Other causes of anemia: antineoplastic chemotherapy Qualified Code(s): D64.81 - Anemia due to antineoplastic chemotherapy; T45.1X5A - Adverse effect of antineoplastic and immunosuppressive drugs, initial encounter (4) Afib Assessment/Plan: eliquis telemetry caridzem and metoprolol- on hold for low BP Code(s): I48.91 - UNSPECIFIED ATRIAL FIBRILLATION Qualifiers: Atrial fibrillation type: chronic Qualified Code(s): I48.2 - Chronic atrial fibrillation (5) CLL (chronic lymphocytic leukemia) Assessment/Plan: chemo per heme Code(s): C91.10 - CHRONIC LYMPHOCYTIC LEUK OF B-CELL TYPE NOT ACHIEVE REMIS (6) Chronic kidney disease (CKD) Assessment/Plan: renal function is better takes lasix at home 80/40mg- lasix on hold- no signs of volume overload Code(s): N18.9 - CHRONIC KIDNEY DISEASE, UNSPECIFIED Qualifiers: Chronic kidney disease stage: stage 3 (moderate) Qualified Code(s): N18.3 - Chronic kidney disease, stage 3 (moderate)
[2018-09-11] MEDS ORDERED: SODIUM CHLORIDE 1,000 ML IV STA (11:49)
--- NOTE | 2018-09-11 12:20 | CONSULT ---
Consultation: REQUESTING PROVIDER: CONSULT REQUEST: We have been asked to medically evaluate this patient for (pulm -critical care ). HISTORY OF PRESENT ILLNESS: This is an 87 year old male with a past medical history significant for Afib on Eliquis, HTN, diastolic dysfunction, anemia, CKD who is s/p hospitalization from 08/14-09/04 for syncope, initially hypovolemic due to overdiuresis, anemia requiring transfusion and acute delirium. He presented to the ED today for lightheadedness. Nephew reports that pt BP has been running low and patient has thus been unable to receive his cardizem at home since DC from the hospital. He did receive one dose of metoprolol at 4pm. also reports his SBP remains around 90 when he is aking cardiazema and metoprolol. The visiting nurse advised nephew to hold his cardizem if his BP was too low. He has been receiving his furosemide as prescribed twice daily. Reports some cough but it got better now. denies fever chills, diarrhoea, chest pain, nausea, vomiting, pain in back, supra pubic pain. Denies swelling in any part of body. reports cystoscopy done in previous admission for hematuria but it persist even after cystoscopy and s per pt cystoscopy was negative. Also found to have pneumoperitonium in previous admission but was not operated for it as symptoms got better. Was d/c with chamberlain in previous admission and was changed in this admission. Has h/o of urinary retention. 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/2018 cholecystectomy Social History: Smoking: quit 2005, 1/2 PPD prior Alcohol: pt denies Drugs: pt denies Family History: father age 74, CVA mother age 72, unk sister age 70, unk brother alive s/p CVA Allergies warfarin sodium [From Coumadin] Allergy (Severe, Verified 09/07/18 17:19) bleeding Benzodiazepines Adverse Reaction (Verified 09/07/18 17:19) haloperidol [From Haldol] Adverse Reaction (Verified 09/07/18 17:19) REVIEW OF SYSTEMS: CONSTITUTIONAL: Absent: fever, chills, diaphoresis, generalized weakness, malaise, HEENT: Absent: rhinorrhea, nasal congestion, throat pain, throat swelling, CARDIOVASCULAR: Absent: chest pain, syncope, palpitations, irregular heart rate, lightheadedness , peripheral edema RESPIRATORY: Absent: cough, shortness of breath, dyspnea with exertion, orthopnea, GASTROINTESTINAL: Absent: abdominal pain, abdominal distension, nausea, vomiting, diarrhea, constipation, GENITOURINARY: Absent: dysuria, frequency, urgency, hesitancy, hematuria, flank pain, genital pain PHYSICAL EXAMINATION Vital Signs - 24 hr 09/10/18 09/10/18 09/10/18 13:39 14:00 17:00 Temperature 97.8 F 97.3 F L Pulse Rate 100 H 109 H 106 H Respiratory 20 20 20 Rate Blood Pressure 84/51 L 104/53 L 94/52 L O2 Sat by Pulse Oximetry (%) 09/10/18 09/11/18 09/11/18 21:00 02:15 06:00 Temperature 98.4 F 98.6 F 98.6 F Pulse Rate 115 H 109 H 111 H Respiratory 17 18 17 Rate Blood Pressure 90/67 94/52 L 104/63 O2 Sat by Pulse 95 Oximetry (%) 09/11/18 09/11/18 09/11/18 08:42 08:43 09:00 Temperature 97.7 F Pulse Rate 105 H 96 H Respiratory 16 16 18 Rate Blood Pressure 75/43 L 69/43 L O2 Sat by Pulse 96 Oximetry (%) 09/11/18 09/11/18 09:44 11:56 Temperature Pulse Rate 98 H 101 H Respiratory 18 Rate Blood Pressure 79/55 L 88/46 L O2 Sat by Pulse Oximetry (%) GENERAL: Awake, alert, and fully oriented, in no acute distress. sitting in chair, having lunch HEAD: Normal with no signs of trauma. EARS, NOSE, THROAT: oropharynx clear without exudates. Moist mucous membranes. NECK: Normal range of motion, supple without lymphadenopathy, LUNGS: Breath sounds equal, clear to auscultation bilaterally. No wheezes, and no crackles. HEART: irregularly irregular ABDOMEN: Soft, nontender, not distended, normoactive bowel sounds, no guarding, no rebound, no masses. UPPER EXTREMITIES: 2+ pulses, warm, well-perfused. LOWER EXTREMITIES: No peripheral edema. SKIN: Warm, dry, Laboratory Results - last 24 hr 09/11/18 09/11/18 09/11/18 05:30 05:30 05:30 WBC 6.2 RBC 2.38 L Hgb 7.3 L Hct 22.6 L MCV 94.9 MCH 30.7 MCHC 32.4 RDW 19.6 H Plt Count 193 MPV 9.9 Absolute Neuts (auto) 2.6 Neutrophils % 41.5 L Lymphocytes % 47.1 H Monocytes % 7.0 Eosinophils % 3.6 Basophils % 0.8 Nucleated RBC % 0 Sodium 144 Potassium 4.6 Chloride 110 H Carbon Dioxide 29 Anion Gap 6 L BUN 29 H Creatinine 1.2 Creat Clearance w eGFR 57.27 Random Glucose 77 Calcium 7.2 L Phosphorus 2.3 L Total Bilirubin 0.3 AST 11 L ALT 13 Alkaline Phosphatase 107 Total Protein 4.7 L Albumin 1.4 L TSH 2.16 Free T4 1.29 H Cancelled Crossmatch 09/11/18 11:45 WBC RBC Hgb Hct MCV MCH MCHC RDW Plt Count MPV Absolute Neuts (auto) Neutrophils % Lymphocytes % Monocytes % Eosinophils % Basophils % Nucleated RBC % Sodium Potassium Chloride Carbon Dioxide Anion Gap BUN Creatinine Creat Clearance w eGFR Random Glucose Calcium Phosphorus Total Bilirubin AST ALT Alkaline Phosphatase Total Protein Albumin TSH Free T4 Crossmatch See Detail Active Medications Generic Name Dose Route Start Last Admin Trade Name Ayaanq PRN Reason Stop Dose Admin Acetaminophen 650 mg 09/08/18 03:08 09/11/18 00:45 Tylenol - PO 650 mg Q6H PRN Administration PAIN LEVEL 1 - 3 Allopurinol 100 mg 09/08/18 10:00 09/11/18 09:55 Zyloprim - PO 100 mg DAILY [facility] Administration Apixaban 2.5 mg 09/08/18 10:00 09/11/18 09:55 Eliquis - PO 2.5 mg BID [facility] Administration Atorvastatin Calcium 20 mg 09/08/18 22:00 09/10/18 21:21 Lipitor - PO 20 mg HS [facility] Administration Diltiazem HCl 240 mg 09/08/18 10:00 09/11/18 09:51 Cardizem Cd - PO Not Given DAILY [facility] Docusate Sodium 300 mg 09/08/18 22:00 09/10/18 21:22 Colace - PO 300 mg HS [facility] Administration Vancomycin HCl 1,000 mg in 250 mls @ 166.667 mls/hr 09/08/18 22:00 09/10/18 21:22 Vancomycin (Pre-Docked) IVPB 166.667 mls/hr DAILY@2200 [facility] Administration Protocol Cefepime HCl 1 gm/ Dextrose 100 mls @ 100 mls/hr 09/08/18 22:00 09/11/18 09: 55 IVPB 100 mls/hr BID [facility] Administration Protocol Sodium Chloride 1,000 mls @ 1,000 mls/hr 09/11/18 11:49 09/11/18 11:57 Normal Saline - IV 09/11/18 12:48 1,000 mls/hr ASDIR STA Administration Melatonin 5 mg 09/08/18 22:00 09/10/18 21:21 Melatonin PO 5 mg HS PRN Administration INSOMNIA Metoprolol Tartrate 25 mg 09/10/18 14:00 09/11/18 06:35 Lopressor - PO 25 mg TID [facility] Administration ASSESSMENT/PLAN: assessment uti with sepsis with shock Chronic anemia Persistent atrial fibrillation with RVR [id number] score of 6 on Eliquis chronic diastolic heart failure JOON on CKD Chronic hematuria s/p cystoscopy in previous admission HLD h/o htn PLAN: Monitor vitals Monitor intake / output IV fluid with repeated auscultation. Keep MAP > 65 IV antibiotics as per ID send blood and urine culture Getting one unit of blood, to keep hb 8 hold diuretics, metoprolol and cardiazem for now because of low BP. Rate control On eliquis 2.5 bid for afib. creatinine decreased from 1.9 to 1.2 Dispo: We will continue to follow the patient. Thank you for this consultative opportunity.
--- NOTE | 2018-09-11 14:14 | PN ---
Progress Note, Physician Chief Complaint: The patient seen in telemetry. Family visiting. Seems comfortable. No chest pain, no shortness of breath. Maintains good urne output. History of Present Illness: his is an 87 year old male with a past medical history significant for Afib on Eliquis, HTN, diastolic dysfunction, anemia, CKD who is s/p hospitalization for syncope, anemia requiring transfusion and acute delirium. He presented to the ED with lightheadedness. - Current Medication List Current Medications: Active Medications Acetaminophen (Tylenol -) 650 mg PO Q6H PRN PRN Reason: PAIN LEVEL 1 - 3 Last Admin: 09/11/18 00:45 Dose: 650 mg Allopurinol (Zyloprim -) 100 mg PO DAILY [facility] Last Admin: 09/11/18 09:55 Dose: 100 mg Apixaban (Eliquis -) 2.5 mg PO BID [facility] Last Admin: 09/11/18 09:55 Dose: 2.5 mg Atorvastatin Calcium (Lipitor -) 20 mg PO HS [facility] Last Admin: 09/10/18 21:21 Dose: 20 mg Diltiazem HCl (Cardizem Cd -) 240 mg PO DAILY [facility] Last Admin: 09/11/18 09:51 Dose: Not Given Docusate Sodium (Colace -) 300 mg PO HS [facility] Last Admin: 09/10/18 21:22 Dose: 300 mg Vancomycin HCl (Vancomycin (Pre-Docked)) 1,000 mg in 250 mls @ 166.667 mls/hr IVPB DAILY@2200 [facility]; Protocol Last Admin: 09/10/18 21:22 Dose: 166.667 mls/hr Cefepime HCl 1 gm/ Dextrose 100 mls @ 100 mls/hr IVPB BID [facility]; Protocol Last Admin: 09/11/18 09:55 Dose: 100 mls/hr Melatonin (Melatonin) 5 mg PO HS PRN PRN Reason: INSOMNIA Last Admin: 09/10/18 21:21 Dose: 5 mg Metoprolol Tartrate (Lopressor -) 25 mg PO TID [facility] Last Admin: 09/11/18 06:35 Dose: 25 mg - Objective Vital Signs: Vital Signs Temperature 97.7 F 09/11/18 08:42 Pulse Rate 95 H 09/11/18 12:48 Respiratory Rate 18 09/11/18 12:48 Blood Pressure 83/57 L 09/11/18 12:48 O2 Sat by Pulse Oximetry (%) 96 09/11/18 09:00 Constitutional: Yes: Calm, Pallor Eyes: Yes: Conjunctiva Clear HENT: Yes: Atraumatic Neck: Yes: Trachea Midline Cardiovascular: Yes: Pulse Irregular, S1, S2 Respiratory: Yes: CTA Bilaterally, Diminished Gastrointestinal: Yes: Normal Bowel Sounds, Soft Genitourinary: No: CVA Tenderness - Left, CVA Tenderness - Right Musculoskeletal: Yes: Back Pain Neurological: Yes: Alert Labs: CBC, BMP 09/11/18 05:30 09/11/18 05:30 INR, PTT INR 1.44 (0.83-1.09) H 09/07/18 19:45 Problem List - Problems (1) Anemia Code(s): D64.9 - ANEMIA, UNSPECIFIED Qualifiers: Anemia type: other cause Other causes of anemia: antineoplastic chemotherapy Qualified Code(s): D64.81 - Anemia due to antineoplastic chemotherapy; T45.1X5A - Adverse effect of antineoplastic and immunosuppressive drugs, initial encounter (2) Hypotension Code(s): I95.9 - HYPOTENSION, UNSPECIFIED (3) Afib Code(s): I48.91 - UNSPECIFIED ATRIAL FIBRILLATION Qualifiers: Atrial fibrillation type: chronic Qualified Code(s): I48.2 - Chronic atrial fibrillation Assessment/Plan 87 year old male with a past medical history significant for Afib on Eliquis, HTN, diastolic dysfunction, anemia, CKD Renal functions fairly stable. The electrolytes are at his baseline. No overt need to restart the loop diuretics at this moment. Will follow closely.
--- NOTE | 2018-09-11 15:44 | PN ---
Teaching Attending Note Name of Resident: Oliverio Jauregui ATTENDING PHYSICIAN STATEMENT I saw and evaluated the patient. I reviewed the resident's note and discussed the case with the resident. I agree with the resident's findings and plan as documented. SUBJECTIVE: Patient seen and examined in the ICU. 87 M, Afib on Eliquis, HTN, diastolic dysfunction, anemia, and CKD. Admitted recently due to syncope. Apparently was hypotensive and light headness that his cardizem and metoprolol were held. No travel history or sick contacts. Some dry cough. No GI symptoms. Does report active and chronic symptoms. Intake & Output 09/08/18 09/09/18 09/10/18 09/11/18 23:59 23:59 23:59 23:59 Intake Total 1300 027 140 4887 Output Total 600 1250 600 825 Balance 700 -485 86 3276 Weight 124 lb 6 oz 124 lb 130 lb 3.2 oz Last Vital Signs Temp Pulse Resp BP Pulse Ox 98.1 F 93 H 18 95/53 L 96 09/11/18 14:35 09/11/18 14:35 09/11/18 14:35 09/11/18 14:35 09/11/18 09:00 Active Medications Acetaminophen (Tylenol -) 650 mg PO Q6H PRN PRN Reason: PAIN LEVEL 1 - 3 Last Admin: 09/11/18 00:45 Dose: 650 mg Allopurinol (Zyloprim -) 100 mg PO DAILY [facility] Last Admin: 09/11/18 09:55 Dose: 100 mg Apixaban (Eliquis -) 2.5 mg PO BID [facility] Last Admin: 09/11/18 09:55 Dose: 2.5 mg Atorvastatin Calcium (Lipitor -) 20 mg PO [facility] Last Admin: 09/10/18 21:21 Dose: 20 mg Diltiazem HCl (Cardizem Cd -) 240 mg PO DAILY [facility] Last Admin: 09/11/18 09:51 Dose: Not Given Docusate Sodium (Colace -) 300 mg PO [facility] Last Admin: 09/10/18 21:22 Dose: 300 mg Vancomycin HCl (Vancomycin (Pre-Docked)) 1,000 mg in 250 mls @ 166.667 mls/hr IVPB DAILY@2200 [facility]; Protocol Last Admin: 09/10/18 21:22 Dose: 166.667 mls/hr Cefepime HCl 1 gm/ Dextrose 100 mls @ 100 mls/hr IVPB BID [facility]; Protocol Last Admin: 09/11/18 09:55 Dose: 100 mls/hr Melatonin (Melatonin) 5 mg PO HS PRN PRN Reason: INSOMNIA Last Admin: 09/10/18 21:21 Dose: 5 mg Metoprolol Tartrate (Lopressor -) 25 mg PO TID [facility] Last Admin: 09/11/18 06:35 Dose: 25 mg GENERAL: Awake, alert, and fully oriented, NAD HEAD: Normal with no signs of trauma. EARS, NOSE, THROAT: Moist mucous membranes. NECK: Normal range of motion, supple without lymphadenopathy, LUNGS: Breath sounds clear to auscultation bilaterally. No wheezes, and no crackles. HEART: irregularly irregular ABDOMEN: Soft, nontender, not distended, normoactive bowel sounds, no guarding, no rebound, no masses. UPPER EXTREMITIES: 2+ pulses, warm, well-perfused. LOWER EXTREMITIES: No peripheral edema. SKIN: Warm, dry, Laboratory Results - last 24 hr 09/11/18 09/11/18 09/11/18 05:30 05:30 05:30 WBC 6.2 RBC 2.38 L Hgb 7.3 L Hct 22.6 L MCV 94.9 MCH 30.7 MCHC 32.4 RDW 19.6 H Plt Count 193 MPV 9.9 Absolute Neuts (auto) 2.6 Neutrophils % 41.5 L Lymphocytes % 47.1 H Monocytes % 7.0 Eosinophils % 3.6 Basophils % 0.8 Nucleated RBC % 0 Sodium 144 Potassium 4.6 Chloride 110 H Carbon Dioxide 29 Anion Gap 6 L BUN 29 H Creatinine 1.2 Creat Clearance w eGFR 57.27 Random Glucose 77 Calcium 7.2 L Phosphorus 2.3 L Total Bilirubin 0.3 AST 11 L ALT 13 Alkaline Phosphatase 107 Total Protein 4.7 L Albumin 1.4 L TSH 2.16 Free T4 1.29 H Cancelled Crossmatch 09/11/18 11:45 WBC RBC Hgb Hct MCV MCH MCHC RDW Plt Count MPV Absolute Neuts (auto) Neutrophils % Lymphocytes % Monocytes % Eosinophils % Basophils % Nucleated RBC % Sodium Potassium Chloride Carbon Dioxide Anion Gap BUN Creatinine Creat Clearance w eGFR Random Glucose Calcium Phosphorus Total Bilirubin AST ALT Alkaline Phosphatase Total Protein Albumin TSH Free T4 Crossmatch See Detail ASSESSMENT/PLAN: Sepsis due to UTI Chronic anemia Persistent atrial fibrillation with RVR [id number] score of 6 Chronic diastolic heart failure JOON on CKD Chronic hematuria s/p cystoscopy in previous admission HLD HTN by history IVF Follow lactic acid O2 as needed Strict I & O Noted 1 unit of pRBCs ordered Panculture ABX per ID Eliquis ICU monitoring for hemodynamic monitoring due to Sepsis Dr Contreras Critical care time spent in reviewing chart, evaluating patient and formulating plan - 36 minutes.
[2018-09-11] MEDS: MELATONIN 5 MG TABLETS PO PRN (22:05)
[2018-09-11] MEDS: ATORVASTATIN CA 20 MG TABLET (FP) PO SCH (22:05)
[2018-09-11] MEDS: DOCUSATE SODIUM 100 MG CAPSULE (FP) PO SCH (22:06)
[2018-09-11] MEDS: VANCOMYCIN 1 GRAM (PRE-DOCKED) 1,000 MG/250 ML BAG IVPB SCH (22:06)
--- NOTE | 2018-09-11 22:52 | PN ---
Progress Note, Physician Chief Complaint: Transferred to ICU with hypotension Awake, alert Offers no complaints Afebrile Repeat BC obtained - Current Medication List Current Medications: Active Medications Acetaminophen (Tylenol -) 650 mg PO Q6H PRN PRN Reason: PAIN LEVEL 1 - 3 Last Admin: 09/11/18 00:45 Dose: 650 mg Allopurinol (Zyloprim -) 100 mg PO DAILY [facility] Last Admin: 09/11/18 09:55 Dose: 100 mg Apixaban (Eliquis -) 2.5 mg PO BID [facility] Last Admin: 09/11/18 22:05 Dose: 2.5 mg Atorvastatin Calcium (Lipitor -) 20 mg PO HS [facility] Last Admin: 09/11/18 22:05 Dose: 20 mg Diltiazem HCl (Cardizem Cd -) 240 mg PO DAILY [facility] Last Admin: 09/11/18 09:51 Dose: Not Given Docusate Sodium (Colace -) 300 mg PO HS [facility] Last Admin: 09/11/18 22:06 Dose: 300 mg Vancomycin HCl (Vancomycin (Pre-Docked)) 1,000 mg in 250 mls @ 166.667 mls/hr IVPB DAILY@2200 [facility]; Protocol Last Admin: 09/11/18 22:06 Dose: 166.667 mls/hr Cefepime HCl 1 gm/ Dextrose 100 mls @ 100 mls/hr IVPB BID [facility]; Protocol Last Admin: 09/11/18 09:55 Dose: 100 mls/hr Melatonin (Melatonin) 5 mg PO HS PRN PRN Reason: INSOMNIA Last Admin: 09/11/18 22:05 Dose: 5 mg Metoprolol Tartrate (Lopressor -) 25 mg PO TID [facility] Last Admin: 09/11/18 06:35 Dose: 25 mg - Objective Vital Signs: Vital Signs Temperature 97.4 F L 09/11/18 18:00 Pulse Rate 107 H 09/11/18 22:00 Respiratory Rate 22 H 09/11/18 22:00 Blood Pressure 99/64 09/11/18 22:00 O2 Sat by Pulse Oximetry (%) 96 09/11/18 20:29 Constitutional: Yes: No Distress Cardiovascular: Yes: Regular Rate and Rhythm, S1, S2 Respiratory: Yes: CTA Bilaterally Gastrointestinal: Yes: Normal Bowel Sounds, Soft Edema: No Labs: CBC, BMP 09/11/18 05:30 09/11/18 05:30 INR, PTT INR 1.44 (0.83-1.09) H 09/07/18 19:45 Assessment/Plan Hypotension R/O sepsis UTI/possible sepsis secondary to Lactic acidosis- resolved Azotemia Repeat BC obtained Continue empiric vancomycin/ cefepime
[2018-09-12 06:18] LABS: BASO % 0.7 % (0-2.0); EOS % 3.8 % (0-4.5); HEMATOCRIT 26.2 % (35.4-49); HEMOGLOBIN 8.4 GM/dL (11.7-16.9); LYMPH % 43.9 % (8-40); MCH 30.6 pg (25.7-33.7); MCHC 32.1 g/dl (32.0-35.9); MEAN CELL VOLUME 95.2 fl (80-96); MONO % 6.8 % (3.8-10.2); NEUT % 44.8 % (42.8-82.8); PLATELET COUNT 190 K/MM3 (134-434); RBC 2.75 M/mm3 (4.00-5.60); RDW 19.4 % (11.9-15.9); WHITE BLOOD COUNT 5.9 K/mm3 (4.0-10.0)
[2018-09-12 07:36] LABS: ALBUMIN 1.5 g/dl (3.4-5.0); ALK PHOS 109 U/L (45-117); ANION GAP 5 MMOL/L (8-16); BILIRUBIN,TOTAL 0.5 mg/dL (0.2-1); BLOOD UREA NITROGEN 23 mg/dL (7-18); CALCIUM 7.2 mg/dL (8.5-10.1); CHLORIDE 109 mmol/L (98-107); CO2 28 mmol/L (21-32); CREATININE 1.2 mg/dL (0.55-1.3); GLUCOSE,RANDOM 94 mg/dL (74-106); POTASSIUM 3.9 mmol/L (3.5-5.1); SGOT/AST 14 U/L (15-37); SGPT/ALT 13 U/L (13-61); SODIUM 141 mmol/L (136-145); TOT PROT 4.7 g/dl (6.4-8.2)
[2018-09-12] MEDS ORDERED: METOPROLOL TARTRATE 25 MG TABLET (FP) PO ONE (08:45)
[2018-09-12] MEDS ORDERED: PT OWN MED DRAWER 7, Y5N ONE ×2 (09:03→10:10)
--- NOTE | 2018-09-12 09:17 | PN ---
Progress Note, Physician - Current Medication List Current Medications: Active Medications Acetaminophen (Tylenol -) 650 mg PO Q6H PRN PRN Reason: PAIN LEVEL 1 - 3 Last Admin: 09/11/18 00:45 Dose: 650 mg Allopurinol (Zyloprim -) 100 mg PO DAILY [facility] Last Admin: 09/11/18 09:55 Dose: 100 mg Apixaban (Eliquis -) 2.5 mg PO BID [facility] Last Admin: 09/11/18 22:05 Dose: 2.5 mg Atorvastatin Calcium (Lipitor -) 20 mg PO HS [facility] Last Admin: 09/11/18 22:05 Dose: 20 mg Diltiazem HCl (Cardizem Cd -) 240 mg PO DAILY [facility] Last Admin: 09/11/18 09:51 Dose: Not Given Docusate Sodium (Colace -) 300 mg PO [facility] Last Admin: 09/11/18 22:06 Dose: 300 mg Vancomycin HCl (Vancomycin (Pre-Docked)) 1,000 mg in 250 mls @ 166.667 mls/hr IVPB DAILY@2200 [facility]; Protocol Last Admin: 09/11/18 22:06 Dose: 166.667 mls/hr Cefepime HCl 1 gm/ Dextrose 100 mls @ 100 mls/hr IVPB BID [facility]; Protocol Last Admin: 09/11/18 22:30 Dose: 100 mls/hr Melatonin (Melatonin) 5 mg PO HS PRN PRN Reason: INSOMNIA Last Admin: 09/11/18 22:05 Dose: 5 mg Metoprolol Tartrate (Lopressor -) 25 mg PO TID [facility] Last Admin: 09/11/18 06:35 Dose: 25 mg - Objective Vital Signs: Vital Signs Temperature 98 F 09/12/18 06:00 Pulse Rate 110 H 09/12/18 06:00 Respiratory Rate 14 09/12/18 06:00 Blood Pressure 91/57 L 09/12/18 06:00 O2 Sat by Pulse Oximetry (%) 96 09/11/18 20:29 Cardiovascular: Yes: S1, S2 Respiratory: Yes: Regular, CTA Bilaterally Gastrointestinal: Yes: Normal Bowel Sounds, Soft. No: Tenderness Labs: CBC, BMP 09/12/18 05:30 09/12/18 05:30 INR, PTT INR 1.44 (0.83-1.09) H 09/07/18 19:45 Assessment/Plan - Problems (1) UTI (urinary tract infection) Assessment/Plan: change chamberlain and collect new culture-previous cultures are contaminated started on iv abx cefepime and vancomycin Code(s): N39.0 - URINARY TRACT INFECTION, SITE NOT SPECIFIED (2) Hypotension Assessment/Plan: hold metoprolol and cardizem NS bolus given 09/11--bp better low h/h with hematuria- prbc given ICu monitoring most likely hypotension secondary to volume depletion- possibly septic shock given that patient has UTI on iv abx neurology evaluation Code(s): I95.9 - HYPOTENSION, UNSPECIFIED (3) Anemia Assessment/Plan: SC aranesp last dose on 09/09 PRBC given 09/11 as h/h is 7.3 Code(s): D64.9 - ANEMIA, UNSPECIFIED Qualifiers: Anemia type: other cause Other causes of anemia: antineoplastic chemotherapy Qualified Code(s): D64.81 - Anemia due to antineoplastic chemotherapy; T45.1X5A - Adverse effect of antineoplastic and immunosuppressive drugs, initial encounter (4) Afib Assessment/Plan: eliquis telemetry caridzem and metoprolol- on hold for low BP Code(s): I48.91 - UNSPECIFIED ATRIAL FIBRILLATION Qualifiers: Atrial fibrillation type: chronic Qualified Code(s): I48.2 - Chronic atrial fibrillation (5) CLL (chronic lymphocytic leukemia) Assessment/Plan: chemo per heme Code(s): C91.10 - CHRONIC LYMPHOCYTIC LEUK OF B-CELL TYPE NOT ACHIEVE REMIS (6) Chronic kidney disease (CKD) Assessment/Plan: renal function is better takes lasix at home 80/40mg- lasix on hold- no signs of volume overload Code(s): N18.9 - CHRONIC KIDNEY DISEASE, UNSPECIFIED Qualifiers: Chronic kidney disease stage: stage 3 (moderate) Qualified Code(s): N18.3 - Chronic kidney disease, stage 3 (moderate)
[2018-09-12] MEDS: APIXABAN 2.5 MG TABLET PO SCH ×2 (10:07→21:27)
[2018-09-12] MEDS: ALLOPURINOL 100 MG TABLET (FP) PO SCH (10:08)
[2018-09-12] MEDS: CEFEPIME 1 GM in DEXTROSE 5%-WATER 100 ML IVPB SCH ×2 (10:10→21:27)
--- NOTE | 2018-09-12 11:35 | PN ---
Progress Note, Physician Chief Complaint: Awake, alert Offers no complaint Remains hypotensive Afebrile Repeat BC prelim no growth - Current Medication List Current Medications: Active Medications Acetaminophen (Tylenol -) 650 mg PO Q6H PRN PRN Reason: PAIN LEVEL 1 - 3 Last Admin: 09/11/18 00:45 Dose: 650 mg Allopurinol (Zyloprim -) 100 mg PO DAILY [facility] Last Admin: 09/12/18 10:08 Dose: 100 mg Apixaban (Eliquis -) 2.5 mg PO BID [facility] Last Admin: 09/12/18 10:07 Dose: 2.5 mg Atorvastatin Calcium (Lipitor -) 20 mg PO HS [facility] Last Admin: 09/11/18 22:05 Dose: 20 mg Diltiazem HCl (Cardizem Cd -) 240 mg PO DAILY [facility] Last Admin: 09/11/18 09:51 Dose: Not Given Docusate Sodium (Colace -) 300 mg PO HS [facility] Last Admin: 09/11/18 22:06 Dose: 300 mg Vancomycin HCl (Vancomycin (Pre-Docked)) 1,000 mg in 250 mls @ 166.667 mls/hr IVPB DAILY@2200 [facility]; Protocol Last Admin: 09/11/18 22:06 Dose: 166.667 mls/hr Cefepime HCl 1 gm/ Dextrose 100 mls @ 100 mls/hr IVPB BID [facility]; Protocol Last Admin: 09/12/18 10:10 Dose: 100 mls/hr Melatonin (Melatonin) 5 mg PO HS PRN PRN Reason: INSOMNIA Last Admin: 09/11/18 22:05 Dose: 5 mg Metoprolol Tartrate (Lopressor -) 25 mg PO TID [facility] Last Admin: 09/11/18 06:35 Dose: 25 mg - Objective Vital Signs: Vital Signs Temperature 98.2 F 09/12/18 08:00 Pulse Rate 122 H 09/12/18 10:25 Respiratory Rate 16 09/12/18 10:25 Blood Pressure 88/60 L 09/12/18 10:25 O2 Sat by Pulse Oximetry (%) 96 09/11/18 20:29 Constitutional: Yes: No Distress, Thin Eyes: Yes: Conjunctiva Clear Cardiovascular: Yes: Regular Rate and Rhythm, S1, S2 Respiratory: Yes: CTA Bilaterally Gastrointestinal: Yes: Normal Bowel Sounds, Soft. No: Tenderness Edema: No Labs: CBC, BMP 09/12/18 05:30 09/12/18 05:30 INR, PTT INR 1.44 (0.83-1.09) H 09/07/18 19:45 Assessment/Plan Hypotension R/O sepsis UTI/possible sepsis secondary to Lactic acidosis- resolved Azotemia Repeat BC pending Continue empiric vancomycin/ cefepime
--- NOTE | 2018-09-12 11:40 | PN ---
Progress Note, Physician History of Present Illness: Hemodynamics improved with volume resuscitation, rate-controlled afib. Admitted for UTI/possible sepsis secondary to UTI with obstructive uropathy / indwelling chamberlain catheter and azotemia and placed on empiric coverage vancomycin/ cefepime adjusted for azotemia pending C&S. - Current Medication List Current Medications: Active Medications Acetaminophen (Tylenol -) 650 mg PO Q6H PRN PRN Reason: PAIN LEVEL 1 - 3 Last Admin: 09/11/18 00:45 Dose: 650 mg Allopurinol (Zyloprim -) 100 mg PO DAILY [facility] Last Admin: 09/12/18 10:08 Dose: 100 mg Apixaban (Eliquis -) 2.5 mg PO BID [facility] Last Admin: 09/12/18 10:07 Dose: 2.5 mg Atorvastatin Calcium (Lipitor -) 20 mg PO HS [facility] Last Admin: 09/11/18 22:05 Dose: 20 mg Diltiazem HCl (Cardizem Cd -) 240 mg PO DAILY [facility] Last Admin: 09/11/18 09:51 Dose: Not Given Docusate Sodium (Colace -) 300 mg PO HS [facility] Last Admin: 09/11/18 22:06 Dose: 300 mg Vancomycin HCl (Vancomycin (Pre-Docked)) 1,000 mg in 250 mls @ 166.667 mls/hr IVPB DAILY@2200 [facility]; Protocol Last Admin: 09/11/18 22:06 Dose: 166.667 mls/hr Cefepime HCl 1 gm/ Dextrose 100 mls @ 100 mls/hr IVPB BID [facility]; Protocol Last Admin: 09/12/18 10:10 Dose: 100 mls/hr Melatonin (Melatonin) 5 mg PO HS PRN PRN Reason: INSOMNIA Last Admin: 09/11/18 22:05 Dose: 5 mg Metoprolol Tartrate (Lopressor -) 25 mg PO TID [facility] Last Admin: 09/11/18 06:35 Dose: 25 mg - Objective Vital Signs: Vital Signs Temperature 98.2 F 09/12/18 08:00 Pulse Rate 122 H 09/12/18 10:25 Respiratory Rate 16 09/12/18 10:25 Blood Pressure 88/60 L 09/12/18 10:25 O2 Sat by Pulse Oximetry (%) 96 09/11/18 20:29 Constitutional: Yes: No Distress, Calm, Thin Neck: Yes: Supple Cardiovascular: Yes: Pulse Irregular Respiratory: Yes: Regular, On Nasal O2 Gastrointestinal: Yes: Normal Bowel Sounds, Soft Edema: No Labs: CBC, BMP 09/12/18 05:30 09/12/18 05:30 INR, PTT INR 1.44 (0.83-1.09) H 09/07/18 19:45 - ....Imaging EKG: Report Reviewed (Tele: Rate-controlled afib) Problem List - Problems (1) Anemia Code(s): D64.9 - ANEMIA, UNSPECIFIED Qualifiers: Anemia type: other cause Other causes of anemia: antineoplastic chemotherapy Qualified Code(s): D64.81 - Anemia due to antineoplastic chemotherapy; T45.1X5A - Adverse effect of antineoplastic and immunosuppressive drugs, initial encounter (2) Hematuria Code(s): R31.9 - HEMATURIA, UNSPECIFIED Qualifiers: Hematuria type: gross Qualified Code(s): R31.0 - Gross hematuria (3) Afib Code(s): I48.91 - UNSPECIFIED ATRIAL FIBRILLATION Qualifiers: Atrial fibrillation type: chronic Qualified Code(s): I48.2 - Chronic atrial fibrillation (4) Chronic anticoagulation Code(s): 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 (5) Chronic kidney disease (CKD) Code(s): N18.9 - CHRONIC KIDNEY DISEASE, UNSPECIFIED Qualifiers: Chronic kidney disease stage: stage 3 (moderate) Qualified Code(s): N18.3 - Chronic kidney disease, stage 3 (moderate) (6) Chronic lymphocytic leukemia (CLL), B-cell Code(s): C91.10 - CHRONIC LYMPHOCYTIC LEUK OF B-CELL TYPE NOT ACHIEVE REMIS Qualifiers: Leukemia Active/Remission status: in remission Qualified Code(s): C91.11 - Chronic lymphocytic leukemia of B-cell type in remission (7) Hyperlipidemia Code(s): E78.5 - HYPERLIPIDEMIA, UNSPECIFIED Qualifiers: Hyperlipidemia type: pure hypercholesterolemia Qualified Code(s): E78.00 - Pure hypercholesterolemia, unspecified; E78.0 - Pure hypercholesterolemia (8) Pneumoperitoneum Code(s): K66.8 - OTHER SPECIFIED DISORDERS OF PERITONEUM (9) UTI (urinary tract infection) Code(s): N39.0 - URINARY TRACT INFECTION, SITE NOT SPECIFIED Assessment/Plan Echo: 01/23/2018 Normal biventricular size and fxn, mild-mod TR, mild , mod LAE, mild [place] 1. Sepsis source 2. Recent cysto clot evacuation and chamberlain placement, for hematuria since resolved 3. H/o syncope in setting of anemia and intravascular volume depletion from overdiuresis 4. Asymptomatic pneumoperitoneum w/o obvious perforation source 5. 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 CAD angina pectoris, stable 7. Chronic diastolic heart failure 8. Persistent atrial fibrillation with RVR [id number] score of 6 on Eliquis 9. History of CVA/TIA 10. HTN 11. Hypercholesterolemia 12. 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 History of recurrent diverticular bleed 14. Acute on CKD (pre-renal) with chronic mild-moderate left hydronephrosis resolving 15. 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 IVF, empiric coverage vancomycin/cefepime per C&S 2. Holding diuretics with monitor renal function and electrolytes 3. Continue Eliquis 2.5 BID with caution and Lipitor 20 qhs, resume Metoprolol 25 TID, d/c Cardizem 240 QD 4. Transfuse to maintain Hgb equal or > 8.0 5. Observation for asymptomatic pneumo-peritoneum given multiple co-morbidities
--- NOTE | 2018-09-12 12:27 | PN ---
Teaching Attending Note Name of Resident: Di Mcknight ATTENDING PHYSICIAN STATEMENT I saw and evaluated the patient. I reviewed the resident's note and discussed the case with the resident. I agree with the resident's findings and plan as documented. SUBJECTIVE: Patient seen and examined in the ICU. Awake and alert. Feels overall better. No CP or SOB. BP marginal but asymptomatic. Intake & Output 09/09/18 09/10/18 09/11/18 09/12/18 23:59 23:59 23:59 23:59 Intake Total 767 795 0836 150 Output Total 5788 275 2498 800 Balance -612 79 6496 -650 Weight 124 lb 130 lb 3.2 oz 130 lb 3.2 oz Last Vital Signs Temp Pulse Resp BP Pulse Ox 98.2 F 122 H 16 88/60 L 96 09/12/18 08:00 09/12/18 10:25 09/12/18 10:25 09/12/18 10:25 09/12/18 09:00 Active Medications Acetaminophen (Tylenol -) 650 mg PO Q6H PRN PRN Reason: PAIN LEVEL 1 - 3 Last Admin: 09/11/18 00:45 Dose: 650 mg Allopurinol (Zyloprim -) 100 mg PO DAILY [facility] Last Admin: 09/12/18 10:08 Dose: 100 mg Apixaban (Eliquis -) 2.5 mg PO BID [facility] Last Admin: 09/12/18 10:07 Dose: 2.5 mg Atorvastatin Calcium (Lipitor -) 20 mg PO [facility] Last Admin: 09/11/18 22:05 Dose: 20 mg Diltiazem HCl (Cardizem Cd -) 240 mg PO DAILY [facility] Last Admin: 09/11/18 09:51 Dose: Not Given Docusate Sodium (Colace -) 300 mg PO [facility] Last Admin: 09/11/18 22:06 Dose: 300 mg Vancomycin HCl (Vancomycin (Pre-Docked)) 1,000 mg in 250 mls @ 166.667 mls/hr IVPB DAILY@2200 [facility]; Protocol Last Admin: 09/11/18 22:06 Dose: 166.667 mls/hr Cefepime HCl 1 gm/ Dextrose 100 mls @ 100 mls/hr IVPB BID [facility]; Protocol Last Admin: 09/12/18 10:10 Dose: 100 mls/hr Melatonin (Melatonin) 5 mg PO HS PRN PRN Reason: INSOMNIA Last Admin: 09/11/18 22:05 Dose: 5 mg Metoprolol Tartrate (Lopressor -) 25 mg PO TID [facility] Last Admin: 09/11/18 06:35 Dose: 25 mg GENERAL: Awake, alert, and fully oriented, NAD HEAD: Normal with no signs of trauma. EARS, NOSE, THROAT: Moist mucous membranes. NECK: Normal range of motion, supple without lymphadenopathy, LUNGS: Breath sounds clear to auscultation bilaterally. No wheezes, and no crackles. HEART: irregularly irregular ABDOMEN: Soft, nontender, not distended, normoactive bowel sounds, no guarding, no rebound, no masses. UPPER EXTREMITIES: 2+ pulses, warm, well-perfused. LOWER EXTREMITIES: No peripheral edema. SKIN: Warm, dry, Laboratory Results - last 24 hr 09/11/18 09/11/18 09/12/18 11:45 11:45 05:30 WBC 5.9 RBC 2.75 L Hgb 8.4 L Hct 26.2 L D MCV 95.2 MCH 30.6 MCHC 32.1 RDW 19.4 H Plt Count 190 MPV 10.0 Absolute Neuts (auto) 2.6 Neutrophils % 44.8 Lymphocytes % 43.9 H Monocytes % 6.8 Eosinophils % 3.8 Basophils % 0.7 Nucleated RBC % 0 Sodium Potassium Chloride Carbon Dioxide Anion Gap BUN Creatinine Creat Clearance w eGFR Random Glucose Calcium Magnesium 2.0 Total Bilirubin AST ALT Alkaline Phosphatase Total Protein Albumin Blood Type O POSITIVE Antibody Screen Negative Crossmatch See Detail 09/12/18 05:30 WBC RBC Hgb Hct MCV MCH MCHC RDW Plt Count MPV Absolute Neuts (auto) Neutrophils % Lymphocytes % Monocytes % Eosinophils % Basophils % Nucleated RBC % Sodium 141 Potassium 3.9 Chloride 109 H Carbon Dioxide 28 Anion Gap 5 L BUN 23 H Creatinine 1.2 Creat Clearance w eGFR 57.27 Random Glucose 94 Calcium 7.2 L Magnesium Total Bilirubin 0.5 AST 14 L ALT 13 Alkaline Phosphatase 109 Total Protein 4.7 L Albumin 1.5 L Blood Type Antibody Screen Crossmatch ASSESSMENT/PLAN: Sepsis due to UTI Chronic anemia Persistent atrial fibrillation with RVR [id number] score of 6 Chronic diastolic heart failure JOON on CKD Chronic hematuria s/p cystoscopy in previous admission HLD HTN by history IVF O2 as needed Strict I & O Normal transfusion threshold ABX per ID Eliquis Can be monitored on 4W/4S Dr Contreras
[2018-09-12 12:49] VITALS: BMI 19.2
--- NOTE | 2018-09-12 13:59 | PN ---
Physical Exam: SUBJECTIVE: Patient seen and examined at bedside. No acute events overnight. Patient denies chest pain, SOB, palpitations, abdominal pain, headache or dizziness. MAP remained at 70s-80s overnight. OBJECTIVE: Vital Signs Period Temp Pulse Resp BP Sys/Gerardo Pulse Ox Last 24 Hr 97.4 F-98.2 F 93-122 14-22 88-112/53-99 96-96 GENERAL: The patient is awake, alert, and fully oriented, in no acute distress. HEAD: Normal with no signs of trauma. EYES: PERRLA, EOMI, sclera anicteric, conjunctiva clear. NECK: Trachea midline, full range of motion, supple. LUNGS: Breath sounds equal, clear to auscultation bilaterally. HEART: Irregularly irregular without murmur, rub or gallop. ABDOMEN: Soft, nontender, nondistended, normoactive bowel sounds. EXTREMITIES: 2+ pulses, warm, well-perfused, no edema. NEUROLOGICAL: Normal speech, gait not observed. PSYCH: Normal mood, normal affect. SKIN: Warm, dry, normal turgor. Laboratory Results - last 24 hr 09/11/18 09/12/18 09/12/18 11:45 05:30 05:30 WBC 5.9 RBC 2.75 L Hgb 8.4 L Hct 26.2 L D MCV 95.2 MCH 30.6 MCHC 32.1 RDW 19.4 H Plt Count 190 MPV 10.0 Absolute Neuts (auto) 2.6 Neutrophils % 44.8 Lymphocytes % 43.9 H Monocytes % 6.8 Eosinophils % 3.8 Basophils % 0.7 Nucleated RBC % 0 Sodium 141 Potassium 3.9 Chloride 109 H Carbon Dioxide 28 Anion Gap 5 L BUN 23 H Creatinine 1.2 Creat Clearance w eGFR 57.27 Random Glucose 94 Calcium 7.2 L Total Bilirubin 0.5 AST 14 L ALT 13 Alkaline Phosphatase 109 Total Protein 4.7 L Albumin 1.5 L Blood Type O POSITIVE Antibody Screen Negative Crossmatch See Detail Active Medications Generic Name Dose Route Start Last Admin Trade Name Freq PRN Reason Stop Dose Admin Acetaminophen 650 mg 09/08/18 03:08 09/11/18 00:45 Tylenol - PO 650 mg Q6H PRN Administration PAIN LEVEL 1 - 3 Allopurinol 100 mg 09/08/18 10:00 09/12/18 10:08 Zyloprim - PO 100 mg DAILY [facility] Administration Apixaban 2.5 mg 09/08/18 10:00 09/12/18 10:07 Eliquis - PO 2.5 mg BID [facility] Administration Atorvastatin Calcium 20 mg 09/08/18 22:00 09/11/18 22:05 Lipitor - PO 20 mg HS [facility] Administration Diltiazem HCl 240 mg 09/08/18 10:00 09/11/18 09:51 Cardizem Cd - PO Not Given DAILY [facility] Docusate Sodium 300 mg 09/08/18 22:00 09/11/18 22:06 Colace - PO 300 mg HS [facility] Administration Vancomycin HCl 1,000 mg in 250 mls @ 166.667 mls/hr 09/08/18 22:00 09/11/18 22:06 Vancomycin (Pre-Docked) IVPB 166.667 mls/hr DAILY@2200 [facility] Administration Protocol Cefepime HCl 1 gm/ Dextrose 100 mls @ 100 mls/hr 09/08/18 22:00 09/12/18 10: 10 IVPB 100 mls/hr BID [facility] Administration Protocol Melatonin 5 mg 09/08/18 22:00 09/11/18 22:05 Melatonin PO 5 mg HS PRN Administration INSOMNIA Metoprolol Tartrate 25 mg 09/10/18 14:00 09/11/18 06:35 Lopressor - PO 25 mg TID [facility] Administration ASSESSMENT/PLAN: Patient is an 87 year old male with past medical history of NHL, aFIB, HTN, diastolic dysfunction, anemia, chronic venous stasis, PNA, BPH, mesenteric ischemia, diverticulosis, ileus presented to the ED with lightheadedness. Patient was transferred to ICU for hemodynamic monitoring of hypotension, likely secondary to #Sepsis likely 2/2 UTI -Gentle hydration with IV Fluids -On cefepime 1gm BID and Vancomycin 1g daily -ID on board -Diuretics, Metoprolol and Cardizem on hold #Persistent Atrial Fibrillation -HR at 130s this morning during breakfast -Lopressor 12.5mg given once -HR controlled at 100s -Hold lopressor and cardizem for now -to be resumed as per primary team #Chronic anemia -Hgb improved today at 8.3 s/p 1unit pRBC -Transfuse to keep Hgb >8 #Chronic diastolic heart failure -Hold diuretics for now -MAP at 70s-80s overnight -I&O -Daily weights #JOON on CKD, resolving -BUN/Cr at 23/1.2 today #Hyperlipidemia -Continue Lipitor 20mg PO HS #Hypertension -Hold diuretics, cardizem and metroprolol for now -To be resumed by primary team #FEN -not on any standing fluids -electrolytes wnl, routine bmp monitoring -sodium controlled diet #Prophylaxis -On eliquis 2.5 mg BID #Disposition -transfer to tele Visit type - Emergency Visit Emergency Visit: Yes ED Registration Date: 09/08/18 Care time: The patient presented to the Emergency Department on the above date and was hospitalized for further evaluation of their emergent condition. - New Patient This patient is new to me today: Yes Date on this admission: 09/12/18 - Critical Care Critical Care patient: Yes Total Critical Care Time (in minutes): 40 Critical Care Statement: The care of this patient involved high complexity decision making to prevent further life threatening deterioration of the patient 's condition and/or to evaluate & treat vital organ system(s) failure or risk of failure.
--- NOTE | 2018-09-12 14:15 | PN ---
Progress Note, Physician Chief Complaint: The patient seen in ICU. Was transferred due to hypotension. BP still remains low. Patient sitting by his bed. No dizziness. Seems comfortable. No chest pain, no shortness of breath. Maintains good urine output. History of Present Illness: his is an 87 year old male with a past medical history significant for Afib on Eliquis, HTN, diastolic dysfunction, anemia, CKD who is s/p hospitalization for syncope, anemia requiring transfusion and acute delirium. Admitted with light headedness. - Current Medication List Current Medications: Active Medications Acetaminophen (Tylenol -) 650 mg PO Q6H PRN PRN Reason: PAIN LEVEL 1 - 3 Last Admin: 09/11/18 00:45 Dose: 650 mg Allopurinol (Zyloprim -) 100 mg PO [facility]ILY [facility] Last Admin: 09/12/18 10:08 Dose: 100 mg Apixaban (Eliquis -) 2.5 mg PO BID [facility] Last Admin: 09/12/18 10:07 Dose: 2.5 mg Atorvastatin Calcium (Lipitor -) 20 mg PO HS [facility] Last Admin: 09/11/18 22:05 Dose: 20 mg Diltiazem HCl (Cardizem Cd -) 240 mg PO DAILY [facility] Last Admin: 09/11/18 09:51 Dose: Not Given Docusate Sodium (Colace -) 300 mg PO HS [facility] Last Admin: 09/11/18 22:06 Dose: 300 mg Vancomycin HCl (Vancomycin (Pre-Docked)) 1,000 mg in 250 mls @ 166.667 mls/hr IVPB DAILY@2200 [facility]; Protocol Last Admin: 09/11/18 22:06 Dose: 166.667 mls/hr Cefepime HCl 1 gm/ Dextrose 100 mls @ 100 mls/hr IVPB BID [facility]; Protocol Last Admin: 09/12/18 10:10 Dose: 100 mls/hr Melatonin (Melatonin) 5 mg PO HS PRN PRN Reason: INSOMNIA Last Admin: 09/11/18 22:05 Dose: 5 mg Metoprolol Tartrate (Lopressor -) 25 mg PO TID [facility] Last Admin: 09/11/18 06:35 Dose: 25 mg - Objective Vital Signs: Vital Signs Temperature 98.2 F 09/12/18 08:00 Pulse Rate 122 H 09/12/18 10:25 Respiratory Rate 16 09/12/18 10:25 Blood Pressure 88/60 L 09/12/18 10:25 O2 Sat by Pulse Oximetry (%) 96 09/12/18 09:00 Constitutional: Yes: No Distress, Anxious, Pallor Eyes: Yes: Conjunctiva Clear HENT: Yes: Normocephalic Neck: Yes: Trachea Midline Cardiovascular: Yes: Tachycardia, S1, S2 Respiratory: Yes: CTA Bilaterally, Diminished Gastrointestinal: Yes: Normal Bowel Sounds, Soft Genitourinary: Yes: Resendiz Present, Hematuria (The urine is minimally hemestained. He received PRBC transfusion.). No: Bladder Distention, CVA Tenderness - Left, CVA Tenderness - Right Edema: No Neurological: Yes: Alert, Oriented Psychiatric: Yes: Alert Labs: CBC, BMP 09/12/18 05:30 09/12/18 05:30 INR, PTT INR 1.44 (0.83-1.09) H 09/07/18 19:45 Problem List - Problems (1) Anemia Code(s): D64.9 - ANEMIA, UNSPECIFIED Qualifiers: Anemia type: other cause Other causes of anemia: antineoplastic chemotherapy Qualified Code(s): D64.81 - Anemia due to antineoplastic chemotherapy; T45.1X5A - Adverse effect of antineoplastic and immunosuppressive drugs, initial encounter (2) Hypotension Code(s): I95.9 - HYPOTENSION, UNSPECIFIED (3) Afib Code(s): I48.91 - UNSPECIFIED ATRIAL FIBRILLATION Qualifiers: Atrial fibrillation type: chronic Qualified Code(s): I48.2 - Chronic atrial fibrillation Assessment/Plan 87 year old male with a past medical history significant for Afib on Eliquis, HTN, diastolic dysfunction, anemia, CKD Admitted to the ICU with profound Hypotension, and Anemia. Received PRBC transfusion. Feeling better. BP remains low. Should consider holding the Diltiazem for now. Renal functions and electrolytes fairly stable. Thank you. Kayla Jaime MD
[2018-09-12] MEDS ORDERED: CEFEPIME HCL 1 GM VIAL (RESTRICTED TO ID) ONE (21:07)
[2018-09-12] MEDS ORDERED: DEXTROSE 5%-WATER 100 ML IVPB ONE (21:07)
[2018-09-12] MEDS: ATORVASTATIN CA 20 MG TABLET (FP) PO SCH (21:27)
[2018-09-12] MEDS: DOCUSATE SODIUM 100 MG CAPSULE (FP) PO SCH (21:27)
[2018-09-12] MEDS ORDERED: CEFEPIME 1 GM in DEXTROSE 5%-WATER 100 ML IVPB SCH (22:00)
[2018-09-12] MEDS ORDERED: METOPROLOL TARTRATE 25 MG TABLET (FP) PO SCH (22:00)
[2018-09-12] MEDS ORDERED: VANCOMYCIN 1 GRAM (PRE-DOCKED) 1,000 MG/250 ML BAG IVPB SCH (22:00)
[2018-09-12] MEDS: VANCOMYCIN 1 GRAM (PRE-DOCKED) 1,000 MG/250 ML BAG IVPB SCH (22:34)
[2018-09-12] MEDS: MELATONIN 5 MG TABLETS PO PRN (22:34)
[2018-09-12] MEDS ORDERED: SODIUM CHLORIDE NASAL SPRAY 44 ML BOTTLE NS PRN (23:59)
[2018-09-13] MEDS: ACETAMINOPHEN 325 MG TABLET (FP) PO PRN (03:04)
[2018-09-13 07:45] LABS: HEMATOCRIT 26.1 % (35.4-49); HEMOGLOBIN 8.5 GM/dL (11.7-16.9); MCH 31.1 pg (25.7-33.7); MCHC 32.5 g/dl (32.0-35.9); MEAN CELL VOLUME 95.8 fl (80-96); MEAN PLT VOLUME 10.1 fl (7.5-11.1); PLATELET COUNT 212 K/MM3 (134-434); RBC 2.72 M/mm3 (4.00-5.60); RDW 19.6 % (11.9-15.9); WHITE BLOOD COUNT 6.6 K/mm3 (4.0-10.0)
[2018-09-13 08:47] LABS: ANION GAP 7 MMOL/L (8-16); BLOOD UREA NITROGEN 22 mg/dL (7-18); CALCIUM 7.3 mg/dL (8.5-10.1); CHLORIDE 111 mmol/L (98-107); CO2 26 mmol/L (21-32); CREATININE 1.1 mg/dL (0.55-1.3); GLUCOSE,RANDOM 72 mg/dL (74-106); POTASSIUM 4.6 mmol/L (3.5-5.1); SODIUM 145 mmol/L (136-145)
[2018-09-13] MEDS ORDERED: CEFEPIME HCL 1 GM VIAL (RESTRICTED TO ID) ONE ×2 (09:03→22:03)
[2018-09-13] MEDS ORDERED: DEXTROSE 5%-WATER 100 ML IVPB ONE ×2 (09:03→22:03)
--- NOTE | 2018-09-13 09:07 | PN ---
Progress Note, Physician Chief Complaint: UTI Hypotension Anemia History of Present Illness: NAD Seen by ID Started on IV abx UC- contaminated due to indwelling chamberlain Lactic acid normalized Nephrology on board Diuretics on hold-not indicated BP improved - Current Medication List Current Medications: Active Medications Acetaminophen (Tylenol -) 650 mg PO Q6H PRN PRN Reason: PAIN LEVEL 1 - 3 Last Admin: 09/13/18 03:04 Dose: 650 mg Allopurinol (Zyloprim -) 100 mg PO DAILY [facility] Apixaban (Eliquis -) 2.5 mg PO BID [facility] Last Admin: 09/12/18 21: Dose: 2.5 mg Atorvastatin Calcium (Lipitor -) 20 mg PO HS [facility] Last Admin: 09/12/18: Dose: 20 mg Docusate Sodium (Colace -) 300 mg PO HS [facility] Last Admin: 09/12/18 21:27 Dose: 300 mg Cefepime HCl 1 gm/ Dextrose 100 mls @ 100 mls/hr IVPB BID [facility]; Protocol Last Admin: 09/12/18 21:27 Dose: 100 mls/hr Vancomycin HCl (Vancomycin (Pre-Docked)) 1,000 mg in 250 mls @ 166.667 mls/hr IVPB DAILY@2200 [facility]; Protocol Last Admin: 09/12/18 22:34 Dose: 166.667 mls/hr Melatonin (Melatonin) 5 mg PO HS PRN PRN Reason: INSOMNIA Last Admin: 09/12/18 22:34 Dose: 5 mg Metoprolol Tartrate (Lopressor -) 25 mg PO TID [facility] Sodium Chloride ([place] Nasal Opp -) 2 spray NS BID PRN PRN Reason: NASAL CONGESTION Last Admin: 09/13/18 00:09 Dose: 2 sprays - Objective Vital Signs: Vital Signs Temperature 97.8 F 09/13/18 05:00 Pulse Rate 99 H 09/13/18 05:00 Respiratory Rate 18 09/13/18 05:00 Blood Pressure 107/58 L 09/13/18 05:00 O2 Sat by Pulse Oximetry (%) 98 09/12/18 21:00 Constitutional: Yes: No Distress, Calm, Cachectic Cardiovascular: Yes: Pulse Irregular Respiratory: Yes: Regular Gastrointestinal: Yes: Normal Bowel Sounds, Soft Genitourinary: Yes: Chamberlain Present Musculoskeletal: Yes: Muscle Weakness Extremities: Yes: WNL Edema: No Peripheral Pulses WNL: Yes Neurological: Yes: Alert, Oriented, Pre-Existing Deficit Psychiatric: Yes: Alert, Oriented Labs: CBC, BMP 09/13/18 06:00 09/13/18 06:00 INR, PTT INR 1.44 (0.83-1.09) H 09/07/18 19:45 Problem List - Problems (1) Anemia Assessment/Plan: -2/2 to bleeding in the bladder -H/H stable -On Eliquis -chronically anemic -Recent Iron studies normal -Monitor trend -Conservative Transfusion to avoid fluid overload, only if Hg <7.0 Code(s): D64.9 - ANEMIA, UNSPECIFIED Qualifiers: Anemia type: other cause Other causes of anemia: antineoplastic chemotherapy Qualified Code(s): D64.81 - Anemia due to antineoplastic chemotherapy; T45.1X5A - Adverse effect of antineoplastic and immunosuppressive drugs, initial encounter (2) Hypotension Assessment/Plan: -Diuretics being held -BP improved -check orthostatic BP Code(s): I95.9 - HYPOTENSION, UNSPECIFIED (3) Afib Assessment/Plan: -rate controlled -Off CCB -Seen by cardiology consult -Tele monitoring Code(s): I48.91 - UNSPECIFIED ATRIAL FIBRILLATION Qualifiers: Atrial fibrillation type: chronic Qualified Code(s): I48.2 - Chronic atrial fibrillation (4) UTI (urinary tract infection) Assessment/Plan: -UC contaminated -ID on board -Lactic acid normalized -IV abx-received 5 days of Vancomycin and cefepime -afebrile -WBC normal Code(s): N39.0 - URINARY TRACT INFECTION, SITE NOT SPECIFIED Assessment/Plan see problem list Physical therapy
[2018-09-13] MEDS: CEFEPIME 1 GM in DEXTROSE 5%-WATER 100 ML IVPB SCH ×2 (09:15→22:08)
[2018-09-13] MEDS: APIXABAN 2.5 MG TABLET PO SCH ×2 (09:15→22:08)
[2018-09-13] MEDS: ALLOPURINOL 100 MG TABLET (FP) PO SCH (09:15)
--- NOTE | 2018-09-13 09:35 | PN ---
Progress Note (short form) - Note Progress Note: Chief Complaint: Events noted, notes reviewed, denies any chest pain or dyspnea , atrial fibrillation persists with periods of rapid ventricular response History of Present Illness: Seen and examined on telemetry. Events noted, notes reviewed, denies any chest pain or dyspnea, atrial fibrillation persists with periods of rapid ventricular response Echocardiography dated 01/23/2018 revealed normal bi-ventricular size and function, mild-moderate TR, mild , moderate LAE, mild [place] Medications: Current Medications Acetaminophen (Tylenol -) 650 mg PO Q6H PRN PRN Reason: PAIN LEVEL 1 - 3 Last Admin: 09/13/18 03:04 Dose: 650 mg Allopurinol (Zyloprim -) 100 mg PO DAILY [facility] Last Admin: 09/13/18 09:15 Dose: 100 mg Apixaban (Eliquis -) 2.5 mg PO BID [facility] Last Admin: 09/13/18 09:15 Dose: 2.5 mg Atorvastatin Calcium (Lipitor -) 20 mg PO HS [facility] Last Admin: 09/12/18 21:27 Dose: 20 mg Docusate Sodium (Colace -) 300 mg PO HS [facility] Last Admin: 09/12/18 21:27 Dose: 300 mg Cefepime HCl 1 gm/ Dextrose 100 mls @ 100 mls/hr IVPB BID [facility]; Protocol Last Admin: 09/13/18 09:15 Dose: 100 mls/hr Vancomycin HCl (Vancomycin (Pre-Docked)) 1,000 mg in 250 mls @ 166.667 mls/hr IVPB DAILY@2200 [facility]; Protocol Last Admin: 09/12/18 22:34 Dose: 166.667 mls/hr Melatonin (Melatonin) 5 mg PO HS PRN PRN Reason: INSOMNIA Last Admin: 09/12/18 22:34 Dose: 5 mg Metoprolol Tartrate (Lopressor -) 25 mg PO TID [facility] Sodium Chloride ([place] Nasal [place] -) 2 spray NS BID PRN PRN Reason: NASAL CONGESTION Last Admin: 09/13/18 00:09 Dose: 2 sprays Review of Systems - Review of Systems Constitutional: no symptoms reported Respiratory: denies Cough or Sputum Production Cardiovascular: as noted above Gastrointestinal: denies Nausea, Vomiting, Diarrhea, Constipation or Abdominal Pain Genitourinary: discomfort at the Resendiz catheter site Musculoskeletal: no symptoms reported Endocrine: no symptoms reported Vital Signs: Last Vital Signs Temp Pulse Resp BP Pulse Ox 97.8 F 99 H 18 107/58 L 98 09/13/18 05:00 09/13/18 05:00 09/13/18 05:00 09/13/18 05:00 09/12/18 21:00 Intake & Output 09/10/18 09/11/18 09/12/18 09/13/18 23:59 23:59 23:59 23:59 Intake Total 640 3190 530 600 Output Total 600 1025 1650 800 Balance 40 2165 -1120 -200 Weight 130 lb 3.2 oz 130 lb 3.2 oz 130 lb 3.2 oz Constitutional: Awake No Distress Neck: Supple Negative JVD No Bruit Respiratory: Diminished Breath Sounds at the Bases Cardiovascular: S1 S2 Irregularly Irregular Grade 2/6 SM Gastrointestinal: Soft Benign Normal Bowel Sounds Ext: Negative Edema Labs: CBC, BMP 09/13/18 06:00 09/13/18 06:00 Hepatic Panel Total Bilirubin 0.5 mg/dL (0.2-1) 09/12/18 05:30 AST 14 U/L (15-37) L 09/12/18 05:30 ALT 13 U/L (13-61) 09/12/18 05:30 Alkaline Phosphatase 109 U/L (45-117) 09/12/18 05:30 Albumin 1.5 g/dl (3.4-5.0) L 09/12/18 05:30 Assessment/Plan ASSESSMENT: 1. Uro-sepsis resolving 2. Post recent cysto clot evacuation and Resendiz placement 3. History syncope in setting of anemia and intravascular volume depletion from over-diuresis/dehydration, resolved 4. Asymptomatic pneumo-peritoneum with no obvious perforation source 5. 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 Persistent atrial fibrillation with periods of rapid ventricular response [id number] score of 6 on DOAC's/Eliquis 9. History of CVA/TIA 10. HTN, normotensive to hypotensive 11. Hypercholesterolemia 12. 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 CKD 14. History of CLL with anemia and thrombocytopenia PLAN: 1. Continue Lopressor with caution hemodynamics permitting 2. Continue to withhold Cardizem 3. Continue Eliquis with caution and close monitoring of CBC, shelter A/C is recommended considering the above noted [id number] score of 6 unless it is absolutely contraindicated 4. Lasix to administered as needed with close monitoring renal function 5. Monitor CBC and transfuse to maintain Hg equal or > 8.0 Bouchra Lu M.D.
--- NOTE | 2018-09-13 12:54 | PN ---
Progress Note (short form) - Note Progress Note: 87 year old male with a past medical history significant for Afib on Eliquis, HTN, diastolic dysfunction, anemia, CKD Admitted to the ICU with profound Hypotension/Anemia/PRBC transfusion. holding the Diltiazem for now. Current Medications Acetaminophen (Tylenol -) 650 mg PO Q6H PRN PRN Reason: PAIN LEVEL 1 - 3 Last Admin: 09/13/18 03:04 Dose: 650 mg Allopurinol (Zyloprim -) 100 mg PO DAILY [facility] Last Admin: 09/13/18 09:15 Dose: 100 mg Apixaban (Eliquis -) 2.5 mg PO BID [facility] Last Admin: 09/13/18 09:15 Dose: 2.5 mg Atorvastatin Calcium (Lipitor -) 20 mg PO HS [facility] Last Admin: 09/12/18 21:27 Dose: 20 mg Docusate Sodium (Colace -) 300 mg PO HS [facility] Last Admin: 09/12/18 21:27 Dose: 300 mg Cefepime HCl 1 gm/ Dextrose 100 mls @ 100 mls/hr IVPB BID [facility]; Protocol Last Admin: 09/13/18 09:15 Dose: 100 mls/hr Vancomycin HCl (Vancomycin (Pre-Docked)) 1,000 mg in 250 mls @ 166.667 mls/hr IVPB DAILY@2200 [facility]; Protocol Last Admin: 09/12/18 22:34 Dose: 166.667 mls/hr Melatonin (Melatonin) 5 mg PO HS PRN PRN Reason: INSOMNIA Last Admin: 09/12/18 22:34 Dose: 5 mg Metoprolol Tartrate (Lopressor -) 25 mg PO TID [facility] Sodium Chloride ([place] Nasal [place] -) 2 spray NS BID PRN PRN Reason: NASAL CONGESTION Last Admin: 09/13/18 00:09 Dose: 2 sprays Last Vital Signs Temp Pulse Resp BP Pulse Ox 98.2 F 114 H 18 96/65 97 09/13/18 09:00 09/13/18 09:00 09/13/18 09:00 09/13/18 09:00 09/13/18 09:00 CBC, BMP 09/13/18 06:00 09/13/18 06:00
[2018-09-13] MEDS: DOCUSATE SODIUM 100 MG CAPSULE (FP) PO SCH (22:07)
[2018-09-13] MEDS: ATORVASTATIN CA 20 MG TABLET (FP) PO SCH (22:08)
[2018-09-13] MEDS: VANCOMYCIN 1 GRAM (PRE-DOCKED) 1,000 MG/250 ML BAG IVPB SCH (23:45)
[2018-09-14] MEDS: MELATONIN 5 MG TABLETS PO PRN ×2 (02:48→21:41)
[2018-09-14 07:36] LABS: BASO % 0.8 % (0-2.0); EOS % 3.7 % (0-4.5); HEMATOCRIT 26.7 % (35.4-49); HEMOGLOBIN 8.5 GM/dL (11.7-16.9); LYMPH % 46.6 % (8-40); MCH 30.6 pg (25.7-33.7); MEAN CELL VOLUME 95.7 fl (80-96); MEAN PLT VOLUME 9.9 fl (7.5-11.1); MONO % 8.7 % (3.8-10.2); NEUT % 40.2 % (42.8-82.8); PLATELET COUNT 176 K/MM3 (134-434); RBC 2.79 M/mm3 (4.00-5.60); RDW 19.2 % (11.9-15.9); WHITE BLOOD COUNT 6.3 K/mm3 (4.0-10.0)
[2018-09-14] MEDS ORDERED: PT OWN MED DRAWER 7, Y5N ONE (08:22)
--- NOTE | 2018-09-14 08:33 | PN ---
Progress Note (short form) - Note Progress Note: Chief Complaint: Events noted, notes reviewed, denies any chest pain or dyspnea , atrial fibrillation persists with periods of rapid ventricular response, no hematuria noted History of Present Illness: Seen and examined on telemetry. Events noted, notes reviewed, denies any chest pain or dyspnea, atrial fibrillation persists with periods of rapid ventricular response, no hematuria noted Echocardiography dated 01/23/2018 revealed normal bi-ventricular size and function, mild-moderate TR, mild , moderate LAE, mild [place] Medications: Current Medications Acetaminophen (Tylenol -) 650 mg PO Q6H PRN PRN Reason: PAIN LEVEL 1 - 3 Last Admin: 09/13/18 03:04 Dose: 650 mg Allopurinol (Zyloprim -) 100 mg PO DAILY [facility] Last Admin: 09/13/18 09:15 Dose: 100 mg Apixaban (Eliquis -) 2.5 mg PO BID [facility] Last Admin: 09/13/18 22:08 Dose: 2.5 mg Atorvastatin Calcium (Lipitor -) 20 mg PO [facility] Last Admin: 09/13/18 22:08 Dose: 20 mg Docusate Sodium (Colace -) 300 mg PO HS [facility] Last Admin: 09/13/18 22:07 Dose: 300 mg Cefepime HCl 1 gm/ Dextrose 100 mls @ 100 mls/hr IVPB BID [facility]; Protocol Last Admin: 09/13/18 22:08 Dose: 100 mls/hr Vancomycin HCl (Vancomycin (Pre-Docked)) 1,000 mg in 250 mls @ 166.667 mls/hr IVPB DAILY@2200 [facility]; Protocol Last Admin: 09/13/18 23:45 Dose: 166.667 mls/hr Melatonin (Melatonin) 5 mg PO HS PRN PRN Reason: INSOMNIA Last Admin: 09/14/18 02:48 Dose: 5 mg Metoprolol Tartrate (Lopressor -) 25 mg PO TID [facility] Sodium Chloride ([place] Nasal [place] -) 2 spray NS BID PRN PRN Reason: NASAL CONGESTION Last Admin: 09/13/18 00:09 Dose: 2 sprays Review of Systems - Review of Systems Constitutional: no symptoms reported Respiratory: denies Cough or Sputum Production Cardiovascular: as noted above Gastrointestinal: denies Nausea, Vomiting, Diarrhea, Constipation or Abdominal Pain Genitourinary: discomfort at the Resendiz catheter site Musculoskeletal: no symptoms reported Endocrine: no symptoms reported Vital Signs: Last Vital Signs Temp Pulse Resp BP Pulse Ox 98.3 F 111 H 17 112/69 97 09/14/18 06:00 09/14/18 06:00 09/14/18 07:47 09/14/18 06:00 09/14/18 07:47 Intake & Output 09/11/18 09/12/18 09/13/18 09/14/18 23:59 23:59 23:59 23:59 Intake Total 3190 530 1470 350 Output Total 1025 1650 2200 800 Balance 2165 -1120 -730 -450 Weight 130 lb 3.2 oz 130 lb 3.2 oz 130 lb 3.2 oz 133 lb 3.2 oz Constitutional: Awake No Distress Neck: Supple Negative JVD No Bruit Respiratory: Diminished Breath Sounds at the Bases Cardiovascular: S1 S2 Irregularly Irregular Grade 2/6 SM Gastrointestinal: Soft Benign Normal Bowel Sounds Ext: Negative Edema Labs: CBC, BMP 09/14/18 06:18 BMP pending from this AM Assessment/Plan ASSESSMENT: 1. Uro-sepsis resolving 2. Post recent cysto clot evacuation and Resendiz placement 3. History syncope in setting of anemia and intravascular volume depletion from over-diuresis/dehydration, resolved 4. Asymptomatic pneumo-peritoneum with no obvious perforation source 5. 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 Persistent atrial fibrillation with periods of rapid ventricular response [id number] score of 6 on DOAC's/Eliquis 9. History of CVA/TIA 10. HTN, normotensive to hypotensive 11. Hypercholesterolemia 12. 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 CKD 14. History of CLL with anemia and thrombocytopenia PLAN: 1. Continue Lopressor and titrate dose with caution hemodynamics permitting 2. Continue to withhold Cardizem and will attempt low dose Digoxin with caution and close monitoring of level to assist with rate control 3. Continue Eliquis with caution and close monitoring of CBC, custodial A/C is recommended considering the above noted [id number] score of 6 unless it is absolutely contraindicated 4. Lasix to administered as needed with close monitoring renal function 5. Monitor CBC and transfuse to maintain Hg equal or > 8.0 Bouchra Lu M.D.
[2018-09-14 08:55] LABS: ALBUMIN 1.4 g/dl (3.4-5.0); ALK PHOS 107 U/L (45-117); ANION GAP 6 MMOL/L (8-16); BILIRUBIN,TOTAL 0.4 mg/dL (0.2-1); BLOOD UREA NITROGEN 21 mg/dL (7-18); CALCIUM 7.6 mg/dL (8.5-10.1); CHLORIDE 108 mmol/L (98-107); CO2 27 mmol/L (21-32); GLUCOSE,RANDOM 77 mg/dL (74-106); POTASSIUM 4.6 mmol/L (3.5-5.1); SGOT/AST 15 U/L (15-37); SGPT/ALT 12 U/L (13-61); SODIUM 141 mmol/L (136-145); TOT PROT 4.8 g/dl (6.4-8.2)
[2018-09-14] MEDS: APIXABAN 2.5 MG TABLET PO SCH ×2 (10:07→21:36)
[2018-09-14] MEDS: METOPROLOL TARTRATE 25 MG TABLET (FP) PO SCH ×3 (10:07→21:36)
[2018-09-14] MEDS: DIGOXIN 0.125 MG TABLET (FP) PO SCH (10:07)
[2018-09-14] MEDS: ALLOPURINOL 100 MG TABLET (FP) PO SCH (10:08)
[2018-09-14] MEDS: CEFEPIME 1 GM in DEXTROSE 5%-WATER 100 ML IVPB SCH (10:10)
--- NOTE | 2018-09-14 12:10 | PN ---
Progress Note, Physician Chief Complaint: UTI Hypotension Anemia History of Present Illness: NAD Seen by ID Started on IV abx UC-negative Lactic acid normalized Nephrology on board Diuretics on hold-not indicated BP improved Got 7 days of Vanco and cefepime - Current Medication List Current Medications: Active Medications Acetaminophen (Tylenol -) 650 mg PO Q6H PRN PRN Reason: PAIN LEVEL 1 - 3 Last Admin: 09/13/18 03:04 Dose: 650 mg Allopurinol (Zyloprim -) 100 mg PO DAILY [facility] Last Admin: 09/14/18 10:08 Dose: 100 mg Apixaban (Eliquis -) 2.5 mg PO BID [facility] Last Admin: 09/14/18 10:07 Dose: 2.5 mg Atorvastatin Calcium (Lipitor -) 20 mg PO HS [facility] Last Admin: 09/13/18 22:08 Dose: 20 mg Digoxin (Lanoxin -) 0.125 mg PO DAILY [facility] Last Admin: 09/14/18 10:07 Dose: 0.125 mg Docusate Sodium (Colace -) 300 mg PO HS [facility] Last Admin: 09/13/18 22:07 Dose: 300 mg Cefepime HCl 1 gm/ Dextrose 100 mls @ 100 mls/hr IVPB BID [facility]; Protocol Last Admin: 09/14/18 10:10 Dose: 100 mls/hr Vancomycin HCl (Vancomycin (Pre-Docked)) 1,000 mg in 250 mls @ 166.667 mls/hr IVPB DAILY@2200 [facility]; Protocol Last Admin: 09/13/18 23:45 Dose: 166.667 mls/hr Melatonin (Melatonin) 5 mg PO HS PRN PRN Reason: INSOMNIA Last Admin: 09/14/18 02:48 Dose: 5 mg Metoprolol Tartrate (Lopressor -) 25 mg PO Q6H [facility] Last Admin: 09/14/18 10:07 Dose: 25 mg Sodium Chloride ([place] Nasal [place] -) 2 spray NS BID PRN PRN Reason: NASAL CONGESTION Last Admin: 09/13/18 00:09 Dose: 2 sprays - Objective Vital Signs: Vital Signs Temperature 97.9 F 09/14/18 10:00 Pulse Rate 110 H 09/14/18 10:07 Respiratory Rate 22 H 09/14/18 10:00 Blood Pressure 110/59 L 09/14/18 10:00 O2 Sat by Pulse Oximetry (%) 97 09/14/18 07:47 Constitutional: Yes: Well Nourished, No Distress, Calm Cardiovascular: Yes: Pulse Irregular Respiratory: Yes: Regular Gastrointestinal: Yes: Normal Bowel Sounds, Soft Musculoskeletal: Yes: Muscle Weakness Extremities: Yes: WNL Edema: No Peripheral Pulses WNL: Yes Neurological: Yes: Alert, Oriented Psychiatric: Yes: Alert, Oriented Labs: CBC, BMP 09/14/18 06:18 09/14/18 06:18 INR, PTT INR 1.44 (0.83-1.09) H 09/07/18 19:45 Problem List - Problems (1) Anemia Assessment/Plan: -2/2 to bleeding in the bladder -H/H stable -On Eliquis -chronically anemic -Recent Iron studies normal -Monitor trend -Conservative Transfusion to avoid fluid overload, only if Hg <7.0 Code(s): D64.9 - ANEMIA, UNSPECIFIED Qualifiers: Anemia type: other cause Other causes of anemia: antineoplastic chemotherapy Qualified Code(s): D64.81 - Anemia due to antineoplastic chemotherapy; T45.1X5A - Adverse effect of antineoplastic and immunosuppressive drugs, initial encounter (2) Hypotension Assessment/Plan: -Diuretics being held -BP improved -check orthostatic BP Code(s): I95.9 - HYPOTENSION, UNSPECIFIED (3) Afib Assessment/Plan: -rate controlled -Off CCB -Seen by cardiology consult -Tele monitoring Code(s): I48.91 - UNSPECIFIED ATRIAL FIBRILLATION Qualifiers: Atrial fibrillation type: chronic Qualified Code(s): I48.2 - Chronic atrial fibrillation (4) UTI (urinary tract infection) Assessment/Plan: -UC negative -ID on board -Lactic acid normalized -IV abx-received 7 days of Vancomycin and cefepime -afebrile -WBC normal Code(s): N39.0 - URINARY TRACT INFECTION, SITE NOT SPECIFIED Assessment/Plan see problem list Physical therapy
--- NOTE | 2018-09-14 15:25 | PN ---
Progress Note, Physician Chief Complaint: Awake, alert OOB in chair Offers no complaint Afebrile BC no growth - Current Medication List Current Medications: Active Medications Acetaminophen (Tylenol -) 650 mg PO Q6H PRN PRN Reason: PAIN LEVEL 1 - 3 Last Admin: 09/13/18 03:04 Dose: 650 mg Allopurinol (Zyloprim -) 100 mg PO DAILY [facility] Last Admin: 09/14/18 10:08 Dose: 100 mg Apixaban (Eliquis -) 2.5 mg PO BID [facility] Last Admin: 09/14/18 10:07 Dose: 2.5 mg Atorvastatin Calcium (Lipitor -) 20 mg PO HS [facility] Last Admin: 09/13/18 22:08 Dose: 20 mg Digoxin (Lanoxin -) 0.125 mg PO DAILY [facility] Last Admin: 09/14/18 10:07 Dose: 0.125 mg Docusate Sodium (Colace -) 300 mg PO HS [facility] Last Admin: 09/13/18 22:07 Dose: 300 mg Cefepime HCl 1 gm/ Dextrose 100 mls @ 100 mls/hr IVPB BID [facility]; Protocol Last Admin: 09/14/18 10:10 Dose: 100 mls/hr Vancomycin HCl (Vancomycin (Pre-Docked)) 1,000 mg in 250 mls @ 166.667 mls/hr IVPB DAILY@2200 [facility]; Protocol Last Admin: 09/13/18 23:45 Dose: 166.667 mls/hr Melatonin (Melatonin) 5 mg PO HS PRN PRN Reason: INSOMNIA Last Admin: 09/14/18 02:48 Dose: 5 mg Metoprolol Tartrate (Lopressor -) 25 mg PO Q6H [facility] Last Admin: 09/14/18 10:07 Dose: 25 mg Sodium Chloride ([place] Nasal [place] -) 2 spray NS BID PRN PRN Reason: NASAL CONGESTION Last Admin: 09/13/18 00:09 Dose: 2 sprays - Objective Vital Signs: Vital Signs Temperature 97.9 F 09/14/18 14:00 Pulse Rate 92 H 09/14/18 14:00 Respiratory Rate 22 H 09/14/18 10:00 Blood Pressure 107/65 09/14/18 14:00 O2 Sat by Pulse Oximetry (%) 97 09/14/18 07:47 Constitutional: Yes: No Distress, Cachectic Cardiovascular: Yes: Regular Rate and Rhythm, S1, S2 Respiratory: Yes: CTA Bilaterally Gastrointestinal: Yes: Normal Bowel Sounds, Soft Labs: CBC, BMP 09/14/18 06:18 09/14/18 06:18 INR, PTT INR 1.44 (0.83-1.09) H 09/07/18 19:45 Assessment/Plan UTI/possible sepsis secondary to Lactic acidosis- resolved Azotemia D/C antibiotics
--- NOTE | 2018-09-14 17:20 | PN ---
Progress Note (short form) - Note Progress Note: 87 year old male with a past medical history significant for Afib on Eliquis, HTN, diastolic dysfunction, anemia, CKD Admitted to the ICU with profound Hypotension/Anemia/PRBC transfusion. holding the Diltiazem for now. Current Medications Acetaminophen (Tylenol -) 650 mg PO Q6H PRN PRN Reason: PAIN LEVEL 1 - 3 Last Admin: 09/13/18 03:04 Dose: 650 mg Allopurinol (Zyloprim -) 100 mg PO DAILY [facility] Last Admin: 09/14/18 10:08 Dose: 100 mg Apixaban (Eliquis -) 2.5 mg PO BID [facility] Last Admin: 09/14/18 10:07 Dose: 2.5 mg Atorvastatin Calcium (Lipitor -) 20 mg PO HS [facility] Last Admin: 09/13/18 22:08 Dose: 20 mg Digoxin (Lanoxin -) 0.125 mg PO DAILY [facility] Last Admin: 09/14/18 10:07 Dose: 0.125 mg Docusate Sodium (Colace -) 300 mg PO HS [facility] Last Admin: 09/13/18 22:07 Dose: 300 mg Melatonin (Melatonin) 5 mg PO HS PRN PRN Reason: INSOMNIA Last Admin: 09/14/18 02:48 Dose: 5 mg Metoprolol Tartrate (Lopressor -) 25 mg PO Q6H [facility] Last Admin: 09/14/18 15:43 Dose: 25 mg Sodium Chloride ([place] Nasal [place] -) 2 spray NS BID PRN PRN Reason: NASAL CONGESTION Last Admin: 09/13/18 00:09 Dose: 2 sprays Last Vital Signs Temp Pulse Resp BP Pulse Ox 97.9 F 92 H 22 H 107/65 97 09/14/18 14:00 09/14/18 14:00 09/14/18 10:00 09/14/18 14:00 09/14/18 07:47 Lungs clear heart reg Abd soft nontender ext no edema CBC, BMP 09/14/18 06:18 09/14/18 06:18 IMP- CKP s/p CHF still running low BP's will need cautious resumption of diuretics Plan- follow bmp
[2018-09-14] MEDS: DOCUSATE SODIUM 100 MG CAPSULE (FP) PO SCH (21:36)
[2018-09-14] MEDS: ATORVASTATIN CA 20 MG TABLET (FP) PO SCH (21:36)
[2018-09-15] MEDS: METOPROLOL TARTRATE 25 MG TABLET (FP) PO SCH ×4 (03:03→21:13)
[2018-09-15 06:12] LABS: BASO % 0.9 % (0-2.0); EOS % 3.7 % (0-4.5); HEMATOCRIT 27.7 % (35.4-49); HEMOGLOBIN 8.8 GM/dL (11.7-16.9); LYMPH % 48.5 % (8-40); MCH 30.5 pg (25.7-33.7); MCHC 31.7 g/dl (32.0-35.9); MEAN CELL VOLUME 96.1 fl (80-96); MONO % 8.5 % (3.8-10.2); NEUT % 38.4 % (42.8-82.8); PLATELET COUNT 178 K/MM3 (134-434); RBC 2.88 M/mm3 (4.00-5.60); RDW 19.9 % (11.9-15.9); WHITE BLOOD COUNT 6.4 K/mm3 (4.0-10.0)
[2018-09-15 06:48] LABS: ALBUMIN 1.5 g/dl (3.4-5.0); ALK PHOS 109 U/L (45-117); ANION GAP 6 MMOL/L (8-16); BILIRUBIN,TOTAL 0.4 mg/dL (0.2-1); BLOOD UREA NITROGEN 22 mg/dL (7-18); CALCIUM 7.6 mg/dL (8.5-10.1); CHLORIDE 108 mmol/L (98-107); CO2 27 mmol/L (21-32); CREATININE 1.1 mg/dL (0.55-1.3); GLUCOSE,RANDOM 73 mg/dL (74-106); POTASSIUM 4.8 mmol/L (3.5-5.1); SGOT/AST 12 U/L (15-37); SGPT/ALT 13 U/L (13-61); SODIUM 141 mmol/L (136-145); TOT PROT 4.9 g/dl (6.4-8.2)
--- NOTE | 2018-09-15 09:15 | PN ---
Progress Note, Physician - Current Medication List Current Medications: Active Medications Acetaminophen (Tylenol -) 650 mg PO Q6H PRN PRN Reason: PAIN LEVEL 1 - 3 Last Admin: 09/13/18 03:04 Dose: 650 mg Allopurinol (Zyloprim -) 100 mg PO DAILY [facility] Last Admin: 09/14/18 10:08 Dose: 100 mg Apixaban (Eliquis -) 2.5 mg PO BID [facility] Last Admin: 09/14/18 21:36 Dose: 2.5 mg Atorvastatin Calcium (Lipitor -) 20 mg PO HS [facility] Last Admin: 09/14/18 21:36 Dose: 20 mg Digoxin (Lanoxin -) 0.125 mg PO DAILY [facility] Last Admin: 09/14/18 10:07 Dose: 0.125 mg Docusate Sodium (Colace -) 300 mg PO HS [facility] Last Admin: 09/14/18 21:36 Dose: Not Given Melatonin (Melatonin) 5 mg PO HS PRN PRN Reason: INSOMNIA Last Admin: 09/14/18 21:41 Dose: 5 mg Metoprolol Tartrate (Lopressor -) 25 mg PO Q6H [facility] Last Admin: 09/15/18 03:03 Dose: Not Given Sodium Chloride ([place] Nasal [place] -) 2 spray NS BID PRN PRN Reason: NASAL CONGESTION Last Admin: 09/13/18 00:09 Dose: 2 sprays - Objective Vital Signs: Vital Signs Temperature 98.0 F 09/15/18 06:00 Pulse Rate 98 H 09/15/18 06:00 Respiratory Rate 20 09/15/18 06:00 Blood Pressure 104/51 L 09/15/18 06:00 O2 Sat by Pulse Oximetry (%) 98 09/14/18 21:00 Labs: CBC, BMP 09/15/18 05:30 09/15/18 05:30 INR, PTT INR 1.44 (0.83-1.09) H 09/07/18 19:45 Assessment/Plan - Problems (1) Anemia Assessment/Plan: -2/2 to bleeding in the bladder -H/H stable -On Eliquis -chronically anemic -Recent Iron studies normal -Monitor trend -Conservative Transfusion to avoid fluid overload, only if Hg <7.0 Code(s): D64.9 - ANEMIA, UNSPECIFIED Qualifiers: Anemia type: other cause Other causes of anemia: antineoplastic chemotherapy Qualified Code(s): D64.81 - Anemia due to antineoplastic chemotherapy; T45.1X5A - Adverse effect of antineoplastic and immunosuppressive drugs, initial encounter (2) Hypotension Assessment/Plan: -Diuretics being held -BP improved -check orthostatic BP Code(s): I95.9 - HYPOTENSION, UNSPECIFIED (3) Afib Assessment/Plan: -rate controlled -Off CCB -Seen by cardiology consult -Tele monitoring Code(s): I48.91 - UNSPECIFIED ATRIAL FIBRILLATION Qualifiers: Atrial fibrillation type: chronic Qualified Code(s): I48.2 - Chronic atrial fibrillation (4) UTI (urinary tract infection) Assessment/Plan: -UC negative -ID on board -Lactic acid normalized -Off abx-received 7 days of Vancomycin and cefepime -afebrile -WBC normal Code(s): N39.0 - URINARY TRACT INFECTION, SITE NOT SPECIFIED
--- NOTE | 2018-09-15 09:16 | PN ---
Progress Note, Physician History of Present Illness: Remains in rate-controlled afib with improved hemodynamics. - Current Medication List Current Medications: Active Medications Acetaminophen (Tylenol -) 650 mg PO Q6H PRN PRN Reason: PAIN LEVEL 1 - 3 Last Admin: 09/13/18 03:04 Dose: 650 mg Allopurinol (Zyloprim -) 100 mg PO DAILY [facility] Last Admin: 09/14/18 10:08 Dose: 100 mg Apixaban (Eliquis -) 2.5 mg PO BID [facility] Last Admin: 09/14/18 21:36 Dose: 2.5 mg Atorvastatin Calcium (Lipitor -) 20 mg PO HS [facility] Last Admin: 09/14/18 21:36 Dose: 20 mg Digoxin (Lanoxin -) 0.125 mg PO DAILY [facility] Last Admin: 09/14/18 10:07 Dose: 0.125 mg Docusate Sodium (Colace -) 300 mg PO HS [facility] Last Admin: 09/14/18 21:36 Dose: Not Given Melatonin (Melatonin) 5 mg PO HS PRN PRN Reason: INSOMNIA Last Admin: 09/14/18 21:41 Dose: 5 mg Metoprolol Tartrate (Lopressor -) 25 mg PO Q6H [facility] Last Admin: 09/15/18 03:03 Dose: Not Given Sodium Chloride ([place] Nasal [place] -) 2 spray NS BID PRN PRN Reason: NASAL CONGESTION Last Admin: 09/13/18 00:09 Dose: 2 sprays - Objective Vital Signs: Vital Signs Temperature 98.0 F 09/15/18 06:00 Pulse Rate 98 H 09/15/18 06:00 Respiratory Rate 20 09/15/18 06:00 Blood Pressure 104/51 L 09/15/18 06:00 O2 Sat by Pulse Oximetry (%) 98 09/14/18 21:00 Constitutional: Yes: No Distress, Calm, Thin Neck: Yes: Supple Cardiovascular: Yes: Pulse Irregular Respiratory: Yes: Regular, Diminished, On Nasal O2 Gastrointestinal: Yes: Normal Bowel Sounds, Soft Edema: No Labs: CBC, BMP 09/15/18 05:30 09/15/18 05:30 INR, PTT INR 1.44 (0.83-1.09) H 09/07/18 19:45 - ....Imaging EKG: Report Reviewed (Tele: Rate-controlled afib) Problem List - Problems (1) Anemia Code(s): D64.9 - ANEMIA, UNSPECIFIED Qualifiers: Anemia type: other cause Other causes of anemia: antineoplastic chemotherapy Qualified Code(s): D64.81 - Anemia due to antineoplastic chemotherapy; T45.1X5A - Adverse effect of antineoplastic and immunosuppressive drugs, initial encounter (2) Hematuria Code(s): R31.9 - HEMATURIA, UNSPECIFIED Qualifiers: Hematuria type: gross Qualified Code(s): R31.0 - Gross hematuria (3) Afib Code(s): I48.91 - UNSPECIFIED ATRIAL FIBRILLATION Qualifiers: Atrial fibrillation type: chronic Qualified Code(s): I48.2 - Chronic atrial fibrillation (4) Chronic anticoagulation Code(s): Z79.01 - VIRTUAL OFFICE ASSISTANT (CURRENT) USE OF ANTICOAGULANTS (5) Chronic kidney disease (CKD) Code(s): N18.9 - CHRONIC KIDNEY DISEASE, UNSPECIFIED Qualifiers: Chronic kidney disease stage: stage 3 (moderate) Qualified Code(s): N18.3 - Chronic kidney disease, stage 3 (moderate) (6) Chronic lymphocytic leukemia (CLL), B-cell Code(s): C91.10 - CHRONIC LYMPHOCYTIC LEUK OF B-CELL TYPE NOT ACHIEVE REMIS Qualifiers: Leukemia Active/Remission status: in remission Qualified Code(s): C91.11 - Chronic lymphocytic leukemia of B-cell type in remission (7) Hyperlipidemia Code(s): E78.5 - HYPERLIPIDEMIA, UNSPECIFIED Qualifiers: Hyperlipidemia type: pure hypercholesterolemia Qualified Code(s): E78.00 - Pure hypercholesterolemia, unspecified; E78.0 - Pure hypercholesterolemia (8) Pneumoperitoneum Code(s): K66.8 - OTHER SPECIFIED DISORDERS OF PERITONEUM (9) UTI (urinary tract infection) Code(s): N39.0 - URINARY TRACT INFECTION, SITE NOT SPECIFIED Assessment/Plan Echo: 01/23/2018 Normal biventricular size and fxn, mild-mod TR, mild , mod LAE, mild [place] 1. Sepsis source resolving 2. Recent cysto clot evacuation and chamberlain placement, for hematuria since resolved 3. H/o syncope in setting of anemia and intravascular volume depletion from overdiuresis 4. Asymptomatic pneumoperitoneum w/o obvious perforation source 5. 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 CAD angina pectoris, stable 7. Chronic diastolic heart failure 8. Persistent atrial fibrillation with RVR [id number] score of 6 on Eliquis 9. History of CVA/TIA 10. HTN 11. Hypercholesterolemia 12. 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 History of recurrent diverticular bleed 14. CKD with chronic mild-moderate left hydronephrosis resolving 15. 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 IVF, empiric coverage vancomycin/cefepime per C&S 2. Holding diuretics with monitor renal function and electrolytes 3. Continue Eliquis 2.5 BID with caution and Lipitor 20 qhs, Metoprolol 25 q6h, and dig 0.125 qd for rate-control, d/c Cardizem 240 QD 4. Transfuse to maintain Hgb equal or > 8.0 5. Observation for asymptomatic pneumo-peritoneum given multiple co-morbidities
[2018-09-15] MEDS: APIXABAN 2.5 MG TABLET PO SCH ×2 (10:39→21:13)
[2018-09-15] MEDS: ALLOPURINOL 100 MG TABLET (FP) PO SCH (10:39)
[2018-09-15] MEDS: DIGOXIN 0.125 MG TABLET (FP) PO SCH (10:39)
[2018-09-15] MEDS: ACETAMINOPHEN 325 MG TABLET (FP) PO PRN (10:39)
[2018-09-15] MEDS: ATORVASTATIN CA 20 MG TABLET (FP) PO SCH (21:13)
[2018-09-15] MEDS: DOCUSATE SODIUM 100 MG CAPSULE (FP) PO SCH (21:14)
[2018-09-15] MEDS: MELATONIN 5 MG TABLETS PO PRN (21:16)
[2018-09-16] MEDS: METOPROLOL TARTRATE 25 MG TABLET (FP) PO SCH ×2 (03:45→09:49)
[2018-09-16 06:32] LABS: BASO % 0.8 % (0-2.0); EOS % 2.5 % (0-4.5); HEMATOCRIT 27.2 % (35.4-49); HEMOGLOBIN 8.6 GM/dL (11.7-16.9); LYMPH % 35.3 % (8-40); MCH 30.5 pg (25.7-33.7); MCHC 31.6 g/dl (32.0-35.9); MEAN CELL VOLUME 96.5 fl (80-96); MEAN PLT VOLUME 10.2 fl (7.5-11.1); MONO % 7.3 % (3.8-10.2); NEUT % 54.1 % (42.8-82.8); PLATELET COUNT 178 K/MM3 (134-434); RBC 2.82 M/mm3 (4.00-5.60); RDW 19.2 % (11.9-15.9); WHITE BLOOD COUNT 7.8 K/mm3 (4.0-10.0)
[2018-09-16 07:29] LABS: ALBUMIN 1.5 g/dl (3.4-5.0); ALK PHOS 117 U/L (45-117); ANION GAP 3 MMOL/L (8-16); BILIRUBIN,TOTAL 0.4 mg/dL (0.2-1); BLOOD UREA NITROGEN 24 mg/dL (7-18); CALCIUM 7.7 mg/dL (8.5-10.1); CHLORIDE 108 mmol/L (98-107); CO2 29 mmol/L (21-32); CREATININE 1.2 mg/dL (0.55-1.3); GLUCOSE,RANDOM 78 mg/dL (74-106); POTASSIUM 4.8 mmol/L (3.5-5.1); SGOT/AST 14 U/L (15-37); SGPT/ALT 14 U/L (13-61); SODIUM 140 mmol/L (136-145); TOT PROT 4.8 g/dl (6.4-8.2)
--- NOTE | 2018-09-16 09:25 | PN ---
Progress Note (short form) - Note Progress Note: Chief Complaint: Events noted, notes reviewed, denies any chest pain or dyspnea , atrial fibrillation persists rates improved, no hematuria noted History of Present Illness: Seen and examined on telemetry. Events noted, notes reviewed, denies any chest pain or dyspnea, atrial fibrillation persists rates improved, no hematuria noted Echocardiography dated 01/23/2018 revealed normal bi-ventricular size and function, mild-moderate TR, mild , moderate LAE, mild [place] Medications: Current Medications Acetaminophen (Tylenol -) 650 mg PO Q6H PRN PRN Reason: PAIN LEVEL 1 - 3 Last Admin: 09/15/18 10:39 Dose: 650 mg Allopurinol (Zyloprim -) 100 mg PO DAILY [facility] Last Admin: 09/15/18 10:39 Dose: 100 mg Apixaban (Eliquis -) 2.5 mg PO BID [facility] Last Admin: 09/15/18 21:13 Dose: 2.5 mg Atorvastatin Calcium (Lipitor -) 20 mg PO HS [facility] Last Admin: 09/15/18 21:13 Dose: 20 mg Digoxin (Lanoxin -) 0.125 mg PO DAILY [facility] Last Admin: 09/15/18 10:39 Dose: 0.125 mg Docusate Sodium (Colace -) 300 mg PO HS [facility] Last Admin: 09/15/18 21:14 Dose: 300 mg Melatonin (Melatonin) 5 mg PO HS PRN PRN Reason: INSOMNIA Last Admin: 09/15/18 21:16 Dose: 5 mg Metoprolol Tartrate (Lopressor -) 25 mg PO Q6H [facility] Last Admin: 09/16/18 03:45 Dose: 25 mg Sodium Chloride ([place] Nasal [place] -) 2 spray NS BID PRN PRN Reason: NASAL CONGESTION Last Admin: 09/13/18 00:09 Dose: 2 sprays Tamsulosin HCl (Flomax -) 0.4 mg PO DAILY@0830 [facility] Tamsulosin HCl (Flomax -) 0.4 mg PO ONCE ONE Stop: 09/16/18 09:16 Review of Systems - Review of Systems Constitutional: no symptoms reported Respiratory: denies Cough or Sputum Production Cardiovascular: as noted above Gastrointestinal: denies Nausea, Vomiting, Diarrhea, Constipation or Abdominal Pain Genitourinary: discomfort at the Resendiz catheter site Musculoskeletal: no symptoms reported Endocrine: no symptoms reported Vital Signs: Last Vital Signs Temp Pulse Resp BP Pulse Ox 97.8 F 101 H 20 104/72 96 09/16/18 06:46 09/16/18 06:46 09/16/18 06:46 09/16/18 06:46 09/15/18 21:00 Intake & Output 09/13/18 09/14/18 09/15/18 09/16/18 23:59 23:59 23:59 23:59 Intake Total 1470 1700 590 120 Output Total 2200 1900 1650 600 Balance -730 -200 -1060 -480 Weight 130 lb 3.2 oz 133 lb 3.2 oz 134 lb 134 lb 6.4 oz Constitutional: Awake No Distress Neck: Supple Negative JVD No Bruit Respiratory: Diminished Breath Sounds at the Bases Cardiovascular: S1 S2 Irregularly Irregular Grade 2/6 SM Gastrointestinal: Soft Benign Normal Bowel Sounds Ext: Negative Edema Labs: CBC, BMP 09/16/18 05:30 09/16/18 05:30 Hepatic Panel Total Bilirubin 0.4 mg/dL (0.2-1) 09/16/18 05:30 AST 14 U/L (15-37) L 09/16/18 05:30 ALT 14 U/L (13-61) 09/16/18 05:30 Alkaline Phosphatase 117 U/L (45-117) 09/16/18 05:30 Albumin 1.5 g/dl (3.4-5.0) L 09/16/18 05:30 Assessment/Plan ASSESSMENT: 1. Uro-sepsis resoled 2. Post recent cysto clot evacuation and Resendiz placement 3. History syncope in setting of anemia and intravascular volume depletion from over-diuresis/dehydration, resolved 4. Asymptomatic pneumo-peritoneum with no obvious perforation source 5. 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 Persistent atrial fibrillation with periods of rapid ventricular response [id number] score of 6 on DOAC's/Eliquis, improved rates 9. History of CVA/TIA 10. HTN, normotensive to hypotensive 11. Hypercholesterolemia 12. 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 CKD 14. History of CLL with anemia and thrombocytopenia PLAN: 1. Continue Lopressor with caution hemodynamics permitting 2. Continue low dose Digoxin with caution and close monitoring of level 3. Continue Eliquis with caution and close monitoring of CBC, intermediate A/C is recommended considering the above noted [id number] score of 6 unless it is absolutely contraindicated 4. Lasix to administered as needed with close monitoring renal function 5. Monitor CBC and transfuse to maintain Hg equal or > 8.0 6. Can be transferred to floor care from the cardiovascular point of view Bouchra Lu M.D.
[2018-09-16] MEDS ORDERED: TAMSULOSIN HCL 0.4 MG CAP PO ONE (09:30)
[2018-09-16] MEDS: APIXABAN 2.5 MG TABLET PO SCH (09:49)
[2018-09-16] MEDS: ALLOPURINOL 100 MG TABLET (FP) PO SCH (09:49)
[2018-09-16] MEDS: DIGOXIN 0.125 MG TABLET (FP) PO SCH (09:49)
--- NOTE | 2018-09-16 10:30 | DS ---
Physical Examination Vital Signs: Vital Signs Temperature 97.8 F 09/16/18 06:46 Pulse Rate 98 H 09/16/18 09:49 Respiratory Rate 20 09/16/18 06:46 Blood Pressure 104/72 09/16/18 06:46 O2 Sat by Pulse Oximetry (%) 96 09/15/18 21:00 Cardiovascular: Yes: S1, S2 Respiratory: Yes: Regular, CTA Bilaterally Gastrointestinal: Yes: Normal Bowel Sounds, Soft Labs: CBC, BMP 09/16/18 05:30 09/16/18 05:30 Discharge Summary Reason For Visit: SEPSIS Current Active Problems Anemia (Acute) Hematuria (Acute) Hypotension (Acute) Hospital Course: - Problems (1) Anemia Assessment/Plan: -2/2 to bleeding in the bladder -H/H stable -On Eliquis -chronically anemic -Recent Iron studies normal -Monitor trend -Conservative Transfusion to avoid fluid overload, only if Hg <7.0 Code(s): D64.9 - ANEMIA, UNSPECIFIED Qualifiers: Anemia type: other cause Other causes of anemia: antineoplastic chemotherapy Qualified Code(s): D64.81 - Anemia due to antineoplastic chemotherapy; T45.1X5A - Adverse effect of antineoplastic and immunosuppressive drugs, initial encounter (2) Hypotension Assessment/Plan: -Diuretics being held -BP improved -check orthostatic BP Code(s): I95.9 - HYPOTENSION, UNSPECIFIED (3) Afib Assessment/Plan: -rate controlled -Off CCB -Seen by cardiology consult -Tele monitoring Code(s): I48.91 - UNSPECIFIED ATRIAL FIBRILLATION Qualifiers: Atrial fibrillation type: chronic Qualified Code(s): I48.2 - Chronic atrial fibrillation (4) UTI (urinary tract infection) Assessment/Plan: -UC negative -ID on board -Lactic acid normalized -Off abx-received 7 days of Vancomycin and cefepime -afebrile -WBC normal Code(s): N39.0 - URINARY TRACT INFECTION, SITE NOT SPECIFIED Condition: Improved - Instructions Referrals: Denise West MD [Primary Care Provider] - 1 Week Disposition: VNS/HOME HEALTH CARE - Home Medications Comprehensive Discharge Medication List: Ambulatory Orders Melatonin 5 mg PO HS 12/06/16 Allopurinol [Zyloprim -] 100 mg PO DAILY 08/08/18 Acetaminophen [Tylenol .Regular Strength -] 650 mg PO Q4H PRN tablet 10/18/18 Apixaban [Eliquis -] 2.5 mg PO BID #60 tablet 09/04/18 Atorvastatin Ca [Lipitor] 20 mg PO HS tablet 09/04/18 Docusate Sodium [Colace -] 300 mg PO HS #90 capsule 09/04/18 Metoprolol Tartrate 25 mg PO TID 09/08/18 Digoxin [Lanoxin -] 0.125 mg PO DAILY #30 tablet 09/16/18 Tamsulosin HCl [Flomax -] 0.4 mg PO DAILY@0830 #30 cap.er.24h 09/16/18
[2018-09-16 11:27] VITALS: BP 105/52; PULSE 96; TEMP 98
[2018-09-17] MEDS ORDERED: TAMSULOSIN HCL 0.4 MG CAP PO SCH (08:30)
== END 2018-09-16 13:53 | disposition home health service (06) | DRG 699 ==
LOC: JER 16:50 → JERBED 21:14 → INTOOBSV 21:14 → J5S 09-08 04:23 → OBSVTOIN 09-08 12:02 → J4W 09-08 20:58 → JICU 09-11 15:05 → J4W 09-12 16:25
PROVIDERS: ADMIT Internal Medicine; ATTEND Family Medicine
PROC: 30233N1 Transfusion of Nonautologous Red Blood Cells into Peripheral Vein, Percutaneous Approach (ICD-10-PCS; principal; 2018-09-11)
DX: N32.89 Other specified disorders of bladder (principal); N17.9 Acute kidney failure, unspecified; N39.0 Urinary tract infection, site not specified; I13.0 Hypertensive heart and chronic kidney disease with heart failure and stage 1 through stage 4 chronic kidney disease, or unspecified chronic kidney disease; E87.2 Acidosis; R64 Cachexia; Z68.1 Body mass index [BMI] 19.9 or less, adult; C91.10 Chronic lymphocytic leukemia of B-cell type not having achieved remission; I50.32 Chronic diastolic (congestive) heart failure; N13.30 Unspecified hydronephrosis; I48.2 Chronic atrial fibrillation; D64.9 Anemia, unspecified; I95.9 Hypotension, unspecified; R31.9 Hematuria, unspecified; I25.119 Atherosclerotic heart disease of native coronary artery with unspecified angina pectoris; E78.5 Hyperlipidemia, unspecified; N13.9 Obstructive and reflux uropathy, unspecified; N18.3 Chronic kidney disease, stage 3 (moderate)
CPT/HCPCS: 36415; 36430; 71045-TC-FY; 80048; 80053; 81003; 81015; 82272; 82962; 83605; 83735; 84100; 84439; 84443; 85025; 85027; 85610; 85730; 86850; 86900; 86901; 86922; 87040; 87086; 93005; 93010; 97116-GP; 97161-GP; 99285-25; G0378; J0131; J0881; J7030; P9038; P9058

== ENCOUNTER 2018-09-23 07:58 | Emergency (ER) | payer OTHER, MEDICARE ==
[2018-09-23 08:16] VITALS: BMI 21.2
--- NOTE | 2018-09-23 08:24 | PDOC ---
History of Present Illness - General Chief Complaint: Injury Stated Complaint: FALL Time Seen by Provider: 09/23/18 08:02 History Source: Patient Exam Limitations: No Limitations - History of Present Illness Initial Comments: 09/23/18 08:32 This is a 87 year old male with a history of atrial fibrillation, on eliquis, who was BIBA for a unwitnessed mechanical fall at home. He is with full mental capacity, giving history. Patient states he was getting up to go to the bathroom , when he tripped over the saddle on the floor. At that time he was not using his walker for assistance. He fell landing on his buttocks and scraped his neck on the way down. Denies any other bodily injury, loc, lightheadedness, blurry vision, chest pain, sob, fever, chills, tongue biting, loss of bowel or bladder. He endorsed some left buttock pain. Denies weakness, decreased sensation, pain in the hips or back. Recently discharged from hospital on 08/3118, for sepsis secondary to urinary tract infection. Occurred: reports: just prior to arrival Severity: reports: mild Pain Location: reports: other (left buttock) Method of Injury: Yes: fall Modifying Factors: improves with: None Loss of Consciousness: no loss of consciousness Associated Symptoms (Fall): denies symptoms Past History - Past Medical History Allergies/Adverse Reactions: Allergies Allergy/AdvReac Type Severity Reaction Status Date / Time warfarin sodium Allergy Severe bleeding Verified 09/07/18 17:19 [From Coumadin] Benzodiazepines AdvReac Verified 09/07/18 17:19 haloperidol [From Haldol] AdvReac Verified 09/07/18 17:19 Home Medications: Ambulatory Orders Melatonin 5 mg PO HS 12/06/16 Allopurinol [Zyloprim -] 100 mg PO DAILY 08/08/18 Acetaminophen [Tylenol .Regular Strength -] 650 mg PO Q4H PRN tablet 09/04/18 Apixaban [Eliquis -] 2.5 mg PO BID #60 tablet 09/04/18 Atorvastatin Ca [Lipitor] 20 mg PO HS tablet 09/04/18 Docusate Sodium [Colace -] 300 mg PO HS #90 capsule 09/04/18 Metoprolol Tartrate 25 mg PO TID 09/08/18 Digoxin [Lanoxin -] 0.125 mg PO DAILY #30 tablet 09/16/18 Tamsulosin HCl [Flomax -] 0.4 mg PO DAILY@0830 #30 cap.er.24h 09/16/18 Anemia: No Asthma: No Cancer: Yes (lymphoma non hodgkins) Cardiac Disorders: Yes (afib-CARDIOVERSION) CVA: No COPD: No CHF: No Dementia: No Diabetes: No GI Disorders: Yes (RECTAL BLEEDING;DIVERTICULOSIS) Disorders: Yes (hematuria) HTN: No Hypercholesterolemia: Yes Liver Disease: No Seizures: No Thyroid Disease: No - Surgical History Abdominal Surgery: Yes (HERNIA SX) Appendectomy: No Cardiac Surgery: No Cholecystectomy: Yes Lung Surgery: No Neurologic Surgery: No Orthopedic Surgery: No - Suicide/Smoking/Psychosocial Hx Smoking Status: No Smoking History: Never smoked Have you smoked in the past 12 months: No Number of Cigarettes Smoked Daily: 0 If you are a former smoker, when did you quit?: 2006 Cigars Per Day: 0 Information on smoking cessation initiated: No 'Breaking Loose' booklet given: 08/23/15 Hx Alcohol Use: No Drug/Substance Use Hx: No Substance Use Type: None Hx Substance Use Treatment: No Review of Systems - Review of Systems Able to Perform ROS?: Yes Constitutional: Yes: See HPI Respiratory: No: Cough, Shortness of Breath, SOB with Exertion, Wheezing, Productive cough Cardiac (ROS): Yes: Irregular Heart Rate (hs of atrial fibrillation). No: Chest Pain, Edema ABD/GI: Yes: Abd. Pain w/ defecation. No: Abdominal Distended : No: Dysuria, Discharge, Frequency Musculoskeletal: Yes: See HPI. No: Back Pain, Joint Pain, Joint Swelling Integumentary: Yes: Other (lef tneck skin laceration) Neurological: No: Headache, Numbness, Paresthesia *Physical Exam - Vital Signs Last Vital Signs Temp Pulse Resp BP Pulse Ox 97.4 F L 97 H 18 108/72 100 09/23/18 08:01 09/23/18 08:01 09/23/18 08:01 09/23/18 08:01 09/23/18 08:01 - Physical Exam General Appearance: Yes: Appropriately Dressed HEENT: positive: Normal ENT Inspection, Pharynx Normal, Other (with dentures) Respiratory/Chest: positive: Lungs Clear, Normal Breath Sounds Cardiovascular: positive: S1, S2, Irregularly Irregular Musculoskeletal: negative: CVA Tenderness Extremity: positive: Normal Inspection, Normal Range of Motion, Pelvis Stable. 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 Patient denies loc, head injury, back pain. Endorses mild buttock pain. Physical exam is negative for bony tenderness. Will r/o acute fracture pf palivs, r/o brain bleed as patient is on eliquis. #mechanical fall -head ct w/o contrast -cervical spine ct -pelvis xray -Tylenol for pain -wound dressing; cleaned, bacitracin applied -can d/c if imaging is negative 09/23/18 11:09 09/23/18 12:03 -All imaging for acute fracture is negative -d.c home with home lending officer set up as discussed with social work msw -wound care instructions -DC home *DC/Admit/Observation/Transfer Diagnosis at time of Disposition: Accident due to mechanical fall without injury Qualifiers: Encounter type: initial encounter Qualified Code(s): W19.XXXA - Unspecified fall, initial encounter - Discharge Dispostion Disposition: HOME Condition at time of disposition: Good Decision to Admit order: No - Referrals Referrals: Denise West MD [Primary Care Provider] - - Patient Instructions Printed Discharge Instructions: How to Prevent Falls Additional Instructions: Mr. Murray, you do not have any fractures or acute bone pathology, your imaging was negative. Please keep wound area clean and dry, apply ointment bacitracin or neosporin twice daily. Please make appointment with your primary care provider with n one week for follow up. If you experience any worsening of symptoms, intractable pain, please return to the emergency room. - Post Discharge Activity
[2018-09-23] MEDS ORDERED: ACETAMINOPHEN 650 MG/20.3 ML ORAL SOLUTION (CUPS) PO ONE (08:41)
[2018-09-23] MEDS ORDERED: ACETAMINOPHEN 500 MG TABLET (FP) PO ONE (08:42)
[2018-09-23] MEDS ORDERED: BACITRACIN 0.9 GM PACKET TP ONE (08:45)
--- NOTE | 2018-09-23 09:04 | PDOC ---
Attending Attestation - Resident Resident Name: Candy Hannon - ED Attending Attestation I have performed the following: I have examined & evaluated the patient, The case was reviewed & discussed with the resident, I agree w/resident's findings & plan - HPI HPI: 09/23/18 09:02 87-year-old male with recent admission for UTI discharged home about one week ago, high functioning at baseline and ambulating with walker presents status post mechanical trip and fall on floor saddle walking into the bathroom this morning. Patient left his walker, got his foot caught homicidal and fell onto his buttock, also striking his right neck. Denies any head injury or loss of consciousness, no presyncopal symptoms, no cardiopulmonary complaints whatsoever. He was able to get up on his own, presents with very slight discomfort to his left buttock, no motor or sensory deficits. - Physicial Exam PE: 09/23/18 09:04 Vital signs within normal limits Patient is well-appearing, elderly, pleasant in no acute distress Head: Atraumatic and nontender. HEENT: Pupils are equal round and reactive to light, extraocular movements are intact. No facial deformity/tenderness, no septal hematoma. The oropharynx is clear. Neck: Superficial 3cm skin abrasion R posterior neck, no hematoma or swelling. The trachea is midline, there is no stridor. There is no midline cervical spine tenderness, full range of motion of neck. Chest: Nontender, no ecchymosis or abrasions. Heart: S1-S2, irregular with normal rate. Lungs: Clear to auscultation bilaterally. Symmetric chest rise. Abdomen: Soft/nontender/nondistended. Bowel sounds are normal. There is no abdominal or flank ecchymosis. Back/Pelvis: There is no midline spine tenderness or step-off. Pelvis is stable and nontender, including L posterior pelvis. Extremities: There is no extremity deformity or joint swelling. No focal bony tenderness throughout. 2+ distal pulses throughout. Full flexion/extension of b/ l hips/knees/ankles/toes b/l. Neuro: Alert and oriented x3. Cranial nerves II through XII are intact. 5 out of 5 motor strength x4 extremities. Skin: R neck abrasion, No hematomas/lacerations. Psych: Affect is appropriate. - Medical Decision Making 09/23/18 09:08 87-year-old male with mechanical trip and fall this morning, minor left pelvis contusion and right neck abrasion, no significant head injury or findings on examination. CT head, CT C-spine, pelvis x-ray Tylenol for pain Bacitracin dressing to wound Given recent discharge and activation of home health aide 4 hours a day, we'll have social work see patient as well Lives with nephew, who will arrive in the ED shortly. If trauma imaging and home situation are within normal limits, can be discharged Heart Score/ECG Review #1 ECG reviewed & interpreted by me at: 08:11 General ECG Interpretation: Normal Rate, No acute ischemic changes Compared to previous ECG there are: No significant change (09/07/18) 09/23/18 10:26 afib at 86, RBBB, qtc 454.
[2018-09-23] MEDS ORDERED: BACITRACIN 0.9 GM PACKET ONE (10:16)
[2018-09-23] MEDS ORDERED: ACETAMINOPHEN 325 MG TABLET (FP) ONE (10:16)
--- NOTE | 2018-09-23 12:06 | EKG ---
Test Reason : Blood Pressure : / mmHG Vent. Rate : 086 BPM Atrial Rate : 068 BPM P-R Int : 000 ms QRS Dur : 124 ms QT Int : 380 ms P-R-T Axes : 000 -76 -04 degrees QTc Int : 454 ms ATRIAL FIBRILLATION LEFT AXIS DEVIATION RIGHT BUNDLE BRANCH BLOCK INFERIOR INFARCT (CITED ON OR BEFORE 23-JAN-2018) ABNORMAL ECG Confirmed by MD MORENA, VANESSA ([id number]) on 09/23/2018 12:06:21 PM Referred By: Confirmed By:VANESSA BERG MD
[2018-09-23 12:14] VITALS: BP 136/57; PULSE 88; TEMP 97.6
== END 2018-09-23 12:42 | disposition home or self-care (01) ==
LOC: JER 07:58
DX: S30.0XXA Contusion of lower back and pelvis, initial encounter (principal); S10.81XA Abrasion of other specified part of neck, initial encounter; W18.09XA Striking against other object with subsequent fall, initial encounter; Y93.89 Activity, other specified; Y92.031 Bathroom in apartment as the place of occurrence of the external cause; Y99.8 Other external cause status; I48.91 Unspecified atrial fibrillation; Z79.01 Long term (current) use of anticoagulants; E78.00 Pure hypercholesterolemia, unspecified; Z87.440 Personal history of urinary (tract) infections
CPT/HCPCS: 70450-TC; 72125-TC; 72170-TC-FY; 93005; 93010; 99283-25